=== PATIENT | male | born 1960 | race Caucasian/White ===

== ENCOUNTER 2020-08-11 16:18 | Emergency (ER) | payer BC | END 2020-08-11 17:15 | disposition left against medical advice (07) | LOC: EC 16:18 | DX: R50.9 Fever, unspecified (principal) | CPT/HCPCS: 99499 ==

== ENCOUNTER → 2020-08-12 | Outpatient (CLI) | payer BC | END | disposition home or self-care (01) | LOC: LABWHC1 10:30 | PROVIDERS: ATTEND Internal Medicine | DX: R50.9 Fever, unspecified (principal); J02.9 Acute pharyngitis, unspecified | CPT/HCPCS: U0003; C9803 ==

== ENCOUNTER 2020-08-14 14:26 | Inpatient (IN) | payer BC ==
[2020-08-14] MEDS ORDERED: SUCCINYLCHOLINE CHLORIDE VIAL 200 MG/10 ML VIAL IV ONE (15:00)
[2020-08-14] MEDS ORDERED: ETOMIDATE 2 MG/ML 10 ML VIAL ONE (15:00)
[2020-08-14] MEDS ORDERED: ALBUTEROL HFA INHALER INHALATION STA (15:09)
[2020-08-14] MEDS ORDERED: ACETAMINOPHEN TAB 325 MG TAB PO STA ×2 (15:09→21:10)
[2020-08-14] MEDS ORDERED: SODIUM CHLORIDE 0.9% 1,000 ML IV STA (15:12)
[2020-08-14 15:40] LABS: Basophils # (A) 0.1 k/uL (0-0.2); Basophils % (A) 1 %; Eosinophils % (A) 0 %; HCT 43.4 % (39.0-53.0); HGB 15.3 gm/dL (13.0-17.5); Lymphocytes # (A) 0.5 k/uL (1.0-4.8); Lymphocytes % (A) 7 %; MCH 29.7 pg (25.0-35.0); MCHC 35.3 g/dL (31.0-37.0); MCV 84.2 fL (80.0-100.0); Mean Platelet Volume 8.5; Monocytes # (A) 0.3 k/uL (0-1.0); Monocytes % (A) 4 %; Neutrophils # (A) 5.3 k/uL (1.3-7.7); Neutrophils % (A) 87 %; Platelet Count 100 k/uL (150-450); RBC 5.16 m/uL (4.30-5.90); RDW 13.8 % (11.5-15.5); WBC 6.1 k/uL (3.8-10.6)
--- NOTE | 2020-08-14 15:46 | ED ---
SOB HPI - General Chief Complaint: Shortness of Breath Stated Complaint: Fever,SOB Time Seen by Provider: 08/14/20 14:50 Source: patient Mode of arrival: wheelchair Limitations: no limitations - History of Present Illness Initial Comments: Patient is a 59-year-old male, history of diabetes, hypertension, presenting to the emergency Department with complaints of a fever and shortness of breath for the last 5 days. Patient states his symptoms started on Monday with a sore throat and then later on the day developed a fever. Patient states his fever h as been pretty consistent since then. He has been taking Tylenol which does come down sometimes. Patient states he was tested for Covid 2 days ago and is still awaiting the results. Patient came in today secondary to shortness of breath. He states he continues to have fevers today. He took a Tylenol about 2 hours prior to arrival. He denies history of asthma or COPD. He denies any nausea, vomiting, diarrhea. He denies any chest pains. He has no further complaints at this time. Upon arrival to the ER, he is febrile to 101.7, pulse is 101, 93% on room air. - Related Data Home Medications Medication Instructions Recorded Confirmed Acetaminophen Tab [Tylenol] 1,000 mg PO Q4-6H PRN 08/14/20 08/14/20 Aspirin EC [Ecotrin Low Dose] 81 mg PO HS 08/14/20 08/14/20 Insulin Aspart [NovoLOG] See Protocol SQ TID-W/MEALS 08/14/20 08/14/20 Lisinopril-Hctz 10-12.5 mg 1 tab PO DAILY 08/14/20 08/14/20 [Zestoretic 10-12.5] metFORMIN HCL 1,000 mg PO BID-W/MEALS 08/14/20 08/14/20 Allergies Allergy/AdvReac Type Severity Reaction Status Date / Time No Known Allergies Allergy Verified 08/14/20 18:01 Review of Systems ROS Statement: Those systems with pertinent positive or pertinent negative responses have been documented in the HPI. ROS Other: All systems not noted in ROS Statement are negative. Past Medical History Past Medical History: Diabetes Mellitus, Hypertension History of Any Multi-Drug Resistant Organisms: None Reported Past Surgical History: Appendectomy Past Psychological History: No Psychological Hx Reported Smoking Status: Never smoker Past Alcohol Use History: None Reported Past Drug Use History: None Reported General Exam - General Exam Comments Initial Comments: GENERAL: Patient is well-developed and well-nourished. Patient is nontoxic and in no acute distress. HEAD: Atraumatic, normocephalic. EYES: Pupils equal round and reactive to light, extraocular movements intact, sclera anicteric, conjunctiva are normal. Eyelids were unremarkable. ENT: TMs normal, nares patent, oropharynx clear without exudates. Moist mucous membranes. NECK: Normal range of motion, supple without lymphadenopathy or JVD. LUNGS: Unlabored respirations. Breath sounds clear to auscultation bilaterally and equal. No wheezes rales or rhonchi. HEART: Tachycardia rate and rhythm without murmurs, rubs or gallops. ABDOMEN: Soft, nontender, normoactive bowel sounds. No guarding, no rebound. No masses appreciated. : Deferred MUSCULOSKELETAL: Normal extremities with adequate strength and normal range of motion, no pitting or edema. No clubbing or cyanosis. NEUROLOGICAL: Patient is alert and oriented x 3. Motor and sensory are also intact. Cranial nerves II through XII grossly intact. Symmetrical smile. Normal speech, normal gait. PSYCH: Normal mood, normal affect. SKIN: Warm, Dry, normal turgor, no rashes or lesions noted. Limitations: no limitations Course Vital Signs 08/14/20 08/14/20 08/14/20 14:32 15:30 16:00 Temperature 101.7 F H Pulse Rate 101 H 92 93 Respiratory 18 24 28 H Rate Blood Pressure 122/69 143/73 O2 Sat by Pulse 93 L 96 95 Oximetry 08/14/20 08/14/20 08/14/20 16:30 17:00 17:30 Temperature Pulse Rate 98 98 93 Respiratory 18 Rate Blood Pressure 143/77 133/83 144/74 O2 Sat by Pulse 95 95 96 Oximetry 08/14/20 08/14/20 08/14/20 17:32 18:00 18:30 Temperature 102 F H Pulse Rate 95 96 93 Respiratory 16 18 20 Rate Blood Pressure 144/74 130/78 139/78 O2 Sat by Pulse 96 94 L 95 Oximetry 08/14/20 08/14/20 08/14/20 19:00 19:30 20:00 Temperature Pulse Rate 96 92 97 Respiratory 18 20 Rate Blood Pressure 160/79 162/82 136/60 O2 Sat by Pulse 94 L 93 L 95 Oximetry 08/14/20 08/14/20 08/14/20 20:30 21:00 21:09 Temperature 102.4 F H Pulse Rate 103 H 90 Respiratory 20 18 Rate Blood Pressure 147/68 146/92 O2 Sat by Pulse 95 Oximetry Medical Decision Making - Medical Decision Making Patient is a 59-year-old male presenting with a fever, shortness of breath 5 days. He was tested for Covid 2 days ago, results are still pending. Patient did arrive febrile 101.7, tachycardia at 101, 93% on room air. Labs show a normal white count, d-dimer is normal, sugar was elevated at 317, lactic acid was normal, CRP is elevated at 137. Influenza is not detected. Chest x-ray reveals focal patchy opacities in the peripheral right mid lung and the left mid and lower lung. Patient was given fluids, Tylenol and albuterol inhaler. Patient has been standing at about 94-95% on room air at rest however status patient sits up or stands up and walks around his O2 drops to 91-92%. Given patient's acute findings, bilateral pneumonia, did recommend admission for IV antibiotics and monitoring. Patient is in agreement this plan of care. We will start antibiotics. Patient was accepted by Kaylynn Henderson. Case discussed with Dr. Cazares. - Lab Data Result diagrams: 08/14/20 15:25 08/14/20 15:25 Lab Results 08/14/20 08/14/20 08/14/20 Range/Units 15:25 15:25 15:25 WBC 6.1 (3.8-10.6) k/uL RBC 5.16 (4.30-5.90) m/uL Hgb 15.3 (13.0-17.5) gm/dL Hct 43.4 (39.0-53.0) % MCV 84.2 (80.0-100.0) fL MCH 29.7 (25.0-35.0) pg MCHC 35.3 (31.0-37.0) g/dL RDW 13.8 (11.5-15.5) % Plt Count 100 L (150-450) k/uL MPV 8.5 Neutrophils % 87 % Lymphocytes % 7 % Monocytes % 4 % Eosinophils % 0 % Basophils % 1 % Neutrophils # 5.3 (1.3-7.7) k/uL Lymphocytes # 0.5 L (1.0-4.8) k/uL Monocytes # 0.3 (0-1.0) k/uL Eosinophils # 0.0 (0-0.7) k/uL Basophils # 0.1 (0-0.2) k/uL PT 9.9 (9.0-12.0) sec INR 0.9 (<1.2) APTT 28.1 (22.0-30.0) sec D-Dimer 0.18 (<0.60) mg/L FEU Sodium 135 L (137-145) mmol/L Potassium 4.4 (3.5-5.1) mmol/L Chloride 101 (98-107) mmol/L Carbon Dioxide 21 L (22-30) mmol/L Anion Gap 13 mmol/L BUN 23 H (9-20) mg/dL Creatinine 0.99 (0.66-1.25) mg/dL Est GFR (CKD-EPI)AfAm >90 (>60 ml/min/1.73 sqM) Est GFR (CKD-EPI)NonAf 84 (>60 ml/min/1.73 sqM) Glucose 317 H (74-99) mg/dL Plasma Lactic Acid Samy (0.7-2.0) mmol/L Calcium 8.2 L (8.4-10.2) mg/dL Magnesium 1.9 (1.6-2.3) mg/dL Total Bilirubin 0.8 (0.2-1.3) mg/dL AST 37 (17-59) U/L ALT 28 (4-49) U/L Alkaline Phosphatase 74 (38-126) U/L Lactate Dehydrogenase 591 (313-618) U/L C-Reactive Protein 137.2 H (<10.0) mg/L Total Protein 6.7 (6.3-8.2) g/dL Albumin 4.0 (3.5-5.0) g/dL Influenza Type A RNA (Not Detectd) Influenza Type B (PCR) (Not Detectd) 08/14/20 08/14/20 Range/Units 15:25 15:25 WBC (3.8-10.6) k/uL RBC (4.30-5.90) m/uL Hgb (13.0-17.5) gm/dL Hct (39.0-53.0) % MCV (80.0-100.0) fL MCH (25.0-35.0) pg MCHC (31.0-37.0) g/dL RDW (11.5-15.5) % Plt Count (150-450) k/uL MPV Neutrophils % % Lymphocytes % % Monocytes % % Eosinophils % % Basophils % % Neutrophils # (1.3-7.7) k/uL Lymphocytes # (1.0-4.8) k/uL Monocytes # (0-1.0) k/uL Eosinophils # (0-0.7) k/uL Basophils # (0-0.2) k/uL PT (9.0-12.0) sec INR (<1.2) APTT (22.0-30.0) sec D-Dimer (<0.60) mg/L FEU Sodium (137-145) mmol/L Potassium (3.5-5.1) mmol/L Chloride (98-107) mmol/L Carbon Dioxide (22-30) mmol/L Anion Gap mmol/L BUN (9-20) mg/dL Creatinine (0.66-1.25) mg/dL Est GFR (CKD-EPI)AfAm (>60 ml/min/1.73 sqM) Est GFR (CKD-EPI)NonAf (>60 ml/min/1.73 sqM) Glucose (74-99) mg/dL Plasma Lactic Acid Samy 1.8 (0.7-2.0) mmol/L Calcium (8.4-10.2) mg/dL Magnesium (1.6-2.3) mg/dL Total Bilirubin (0.2-1.3) mg/dL AST (17-59) U/L ALT (4-49) U/L Alkaline Phosphatase (38-126) U/L Lactate Dehydrogenase (313-618) U/L C-Reactive Protein (<10.0) mg/L Total Protein (6.3-8.2) g/dL Albumin (3.5-5.0) g/dL Influenza Type A RNA Not Detected (Not Detectd) Influenza Type B (PCR) Not Detected (Not Detectd) - EKG Data EKG Comments: Normal sinus rhythm, inferior infarct age undetermined, no signs of acute ischemia. Ventricular rate 96, MO 144, QT 360. Disposition Clinical Impression: Suspected 2019 novel coronavirus infection, Bilateral pneumonia, Fever, Hypoxia Disposition: ADMITTED IP TO THIS HOSP Condition: Stable Is patient prescribed a controlled substance at d/c from ED?: No Decision Date: 08/14/20 Decision Time: 18:23
--- NOTE | 2020-08-14 15:48 | XR ---
EXAMINATION TYPE: XR chest 1V portable DATE OF EXAM: 08/14/2020 Comparison: None Clinical History: 59-year-old male FEVER, SOB Findings: Heart is borderline enlarged. Aorta within normal limits. Focal patchy opacities peripheral right mid lung and left mid and lower lung. Some of these areas may represent atelectasis. No pleural effusion. Impression: Focal infiltrate right midlung and possibly some mild infiltrate at the left lower lung. Correlate fo r pneumonia. Some additional strandy areas of atelectasis.
[2020-08-14 15:53] LABS: ALT 28 U/L (4-49); AST 37 U/L (17-59); African American GFR (CKD) >90 (>60 ml/min/1.73 sqM); Alkaline Phosphatase 74 U/L (38-126); Anion Gap 13 mmol/L; Blood Urea Nitrogen 23 mg/dL (9-20); Calcium 8.2 mg/dL (8.4-10.2); Carbon Dioxide 21 mmol/L (22-30); Chloride 101 mmol/L (98-107); Glucose 317 mg/dL (74-99); LDH 591 U/L (313-618); Magnesium 1.9 mg/dL (1.6-2.3); Non-African American GFR(CKD) 84 (>60 ml/min/1.73 sqM); Potassium 4.4 mmol/L (3.5-5.1); Sodium 135 mmol/L (137-145); Total Bilirubin 0.8 mg/dL (0.2-1.3); Total Protein 6.7 g/dL (6.3-8.2)
[2020-08-14 16:16] LABS: D-Dimer 0.18 mg/L FEU (<0.60); INR 0.9 (<1.2); Partial Thromboplastin Time 28.1 sec (22.0-30.0); Prothrombin Time 9.9 sec (9.0-12.0)
[2020-08-14 16:44] LABS: C Reactive Protein 137.2 mg/L (<10.0)
[2020-08-14] MEDS ORDERED: PNEUMONIA PROTOCOL UTILIZED 1 EACH MISC PO PRN (18:23)
[2020-08-14] MEDS ORDERED: SODIUM CHLORIDE 0.9% 1,000 ML IV SCH (18:30)
[2020-08-14] MEDS ORDERED: DEXAMETHASONE SOD PHOSPHATE 10 MG/ML 1 ML VIAL IV STA (18:31)
[2020-08-14] MEDS ORDERED: IBUPROFEN 600 MG TAB PO STA (21:10)
[2020-08-14 21:54] LABS: Glucose,Whole Blood 296 mg/dL (75-99)
[2020-08-15 02:53] LABS: Ferritin 823.3 ng/mL (22.0-322.0)
[2020-08-15 07:09] LABS: Glucose,Whole Blood 336 mg/dL (75-99)
[2020-08-15] MEDS ORDERED: ACETAMINOPHEN TAB 500 MG TAB PO PRN (08:28)
--- NOTE | 2020-08-15 08:59 | XR ---
EXAMINATION TYPE: XR chest 1V portable DATE OF EXAM: 08/15/2020 COMPARISON: Prior chest x-ray 08/14/2020 HISTORY: Pneumonia TECHNIQUE: Single frontal view of the chest is obtained. FINDINGS: Patchy bilateral increased density within the lungs. There is no evident pneumothorax or p leural effusion. Cardiac mediastinal silhouette is stable. IMPRESSION: Findings similar to prior exam. Correlate for pneumonia, atelectasis
[2020-08-15] MEDS: INSULIN ASPART (NovoLOG) 100 UNIT/ML VIAL SQ SCH ×4 (09:46→21:55)
[2020-08-15] MEDS: AZITHROMYCIN 500 MG TAB PO SCH (09:47)
[2020-08-15 11:42] LABS: Glucose,Whole Blood 362 mg/dL (75-99)
--- NOTE | 2020-08-15 15:13 | P.HPIM ---
History of Present Illness 59-year-old the female came in with compensative fever shortness of breath going on for last 5 days. Patient is found to have a Covid 19. Chest x-ray swelling some atelectasis. Patient has a high-grade fever saturating at 91-92% on room air patient gets winded and short of breath with minimal exertion and ambulation.urine is foamy history denied any COPD or asthma history. Review of Systems REVIEW OF SYSTEMS: CONSTITUTIONAL:mentioned in HPI HEENT: No recent visual problems or hearing problems. Denied any sore throat. CARDIOVASCULAR: No chest pain, orthopnea, PND, no palpitations, no syncope. PULMONARY: as mentioned in HPI. GASTROINTESTINAL: No diarrhea, no nausea, no vomiting, no abdominal pain. NEUROLOGICAL: No headaches, no weakness, no numbness. HEMATOLOGICAL: Denies any bleeding or petechiae. GENITOURINARY: Denies any burning micturition, frequency, or urgency. MUSCULOSKELETAL/RHEUMATOLOGICAL: Denies any joint pain, swelling, or any muscle pain. ENDOCRINE: Denies any polyuria or polydipsia. The rest of the 14-point review of systems is negative. Past Medical History Past Medical History: Diabetes Mellitus, Hypertension History of Any Multi-Drug Resistant Organisms: None Reported Past Surgical History: Appendectomy Past Psychological History: No Psychological Hx Reported Smoking Status: Never smoker Past Alcohol Use History: None Reported Past Drug Use History: None Reported Medications and Allergies Home Medications Medication Instructions Recorded Confirmed Type Acetaminophen Tab [Tylenol] 1,000 mg PO Q4-6H PRN 08/14/20 08/14/20 History Aspirin EC [Ecotrin Low Dose] 81 mg PO HS 08/14/20 08/14/20 History Insulin Aspart [NovoLOG] See Protocol SQ TID-W/MEALS 08/14/20 08/14/20 History Lisinopril-Hctz 10-12.5 mg 1 tab PO DAILY 08/14/20 08/14/20 History [Zestoretic 10-12.5] metFORMIN HCL 1,000 mg PO BID-W/MEALS 08/14/20 08/14/20 History Allergies Allergy/AdvReac Type Severity Reaction Status Date / Time No Known Allergies Allergy Verified 08/14/20 18:01 Physical Exam Vitals: Vital Signs Temp Pulse Pulse Resp BP BP Pulse Ox 08/15/20 07:00 98.2 F 89 20 147/75 91 L 08/15/20 01:35 98.0 F 83 20 104/61 93 L 08/15/20 00:00 103 H 24 08/14/20 22:30 98.4 F 08/14/20 21:36 102.5 F H 103 H 24 156/77 92 L 08/14/20 21:09 102.4 F H 08/14/20 21:00 90 18 146/92 95 08/14/20 20:30 103 H 20 147/68 08/14/20 20:00 97 20 136/60 95 08/14/20 19:30 92 162/82 93 L 08/14/20 19:00 96 18 160/79 94 L 08/14/20 18:30 93 20 139/78 95 08/14/20 18:00 96 18 130/78 94 L 08/14/20 17:32 102 F H 95 16 144/74 96 08/14/20 17:30 93 144/74 96 08/14/20 17:00 98 133/83 95 08/14/20 16:30 98 18 143/77 95 08/14/20 16:00 93 28 H 143/73 95 08/14/20 15:30 92 24 96 Intake and Output 08/15/20 08/15/20 08/15/20 06:59 14:59 22:59 Intake Total 1500 400 Output Total 200 Balance 1300 400 Intake: Intake, IV Titration 1200 Amount Sodium Chloride 0.9% 1, 1200 000 ml @ 100 mls/hr IV . Q10H [facility] Rx#:[id number] Oral 300 400 Output: Urine 200 Other: Voiding Method Toilet Toilet # Voids 3 PHYSICAL EXAMINATION: GENERAL: The patient is alert and oriented x3, not in any acute distress. Well developed, well nourished. HEENT: Pupils are round and equally reacting to light. EOMI. No scleral icterus. No conjunctival pallor. Normocephalic, atraumatic. No pharyngeal erythema. No thyromegaly. CARDIOVASCULAR: S1 and S2 present. No murmurs, rubs, or gallops. PULMONARY: there may be some scattered rhonchi good air entry into bilateral lung ulloa. ABDOMEN: Soft, nontender, nondistended, normoactive bowel sounds. No palpable organomegaly. MUSCULOSKELETAL: No joint swelling or deformity. EXTREMITIES: No cyanosis, clubbing, or pedal edema. NEUROLOGICAL: Gross neurological examination did not reveal any focal deficits. SKIN: No rashes. Results CBC & Chem 7: 08/14/20 15:25 08/14/20 15:25 Labs: Abnormal Lab Results - Last 24 Hours (Table) 08/14/20 08/14/20 08/14/20 Range/Units 15:25 15:25 15:25 Plt Count 100 L (150-450) k/uL Lymphocytes # 0.5 L (1.0-4.8) k/uL Sodium 135 L (137-145) mmol/L Carbon Dioxide 21 L (22-30) mmol/L BUN 23 H (9-20) mg/dL Glucose 317 H (74-99) mg/dL POC Glucose (mg/dL) (75-99) mg/dL Calcium 8.2 L (8.4-10.2) mg/dL Ferritin 823.3 H (22.0-322.0) ng/mL C-Reactive Protein 137.2 H (<10.0) mg/L Procalcitonin 0.23 H (0.02-0.09) ng/mL 08/14/20 08/15/20 08/15/20 Range/Units 21:53 07:06 11:40 Plt Count (150-450) k/uL Lymphocytes # (1.0-4.8) k/uL Sodium (137-145) mmol/L Carbon Dioxide (22-30) mmol/L BUN (9-20) mg/dL Glucose (74-99) mg/dL POC Glucose (mg/dL) 296 H 336 H 362 H (75-99) mg/dL Calcium (8.4-10.2) mg/dL Ferritin (22.0-322.0) ng/mL C-Reactive Protein (<10.0) mg/L Procalcitonin (0.02-0.09) ng/mL Thrombosis Risk Factor Assmnt - Choose All That Apply Each Factor Represents 1 point: Age 41-60 years Thrombosis Risk Factor Assessment Total Risk Factor Score: 1 Thrombosis Risk Factor Assessment Level: Low Risk Assessment and Plan Plan: -quit 19 infection/pneumonia: Considering borderline on since saturations and symmetric significant shortness of breath upon minimal ablation patient will be started on Decadron was monitored overnight if he continues to improve patient will be discharged tomorrow. Infectious disease will be consulted -Type 2 diabetes mellitus uncontrolled elevated blood sugars these are expected to go up even higher because of her Decadron patient will be continued on sliding scale along with metformin. 3 on his blood sugars will decide on discharged home regimen. -mild hypovolemic hyponatremia -Hypertension to avoid any hypotension related to sepsis will hold off on antidepressant medications -DVT prophylaxis with Lovenox
[2020-08-15 17:12] LABS: Glucose,Whole Blood 245 mg/dL (75-99)
[2020-08-15] MEDS: metFORMIN 500 MG TAB PO SCH (17:17)
[2020-08-15] MEDS: dexAMETHasone 2 MG TAB PO SCH (17:17)
[2020-08-15 21:00] LABS: Glucose,Whole Blood 283 mg/dL (75-99)
[2020-08-15] MEDS: FAMOTIDINE 20 MG TAB PO SCH (21:55)
[2020-08-15] MEDS: ASPIRIN 81 MG PO SCH (21:55)
[2020-08-16 06:53] LABS: Glucose,Whole Blood 306 mg/dL (75-99)
[2020-08-16] MEDS: AZITHROMYCIN 500 MG TAB PO SCH (07:04)
[2020-08-16] MEDS: FAMOTIDINE 20 MG TAB PO SCH ×2 (07:04→20:24)
[2020-08-16] MEDS: ENOXAPARIN 40 MG/0.4 ML SYRINGE SQ SCH (07:04)
[2020-08-16] MEDS: INSULIN ASPART (NovoLOG) 100 UNIT/ML VIAL SQ SCH ×4 (07:04→21:20)
[2020-08-16] MEDS: metFORMIN 500 MG TAB PO SCH ×2 (07:04→16:54)
[2020-08-16] MEDS: dexAMETHasone 2 MG TAB PO SCH (07:05)
[2020-08-16] MEDS ORDERED: dexAMETHasone 2 MG TAB PO SCH (09:00)
[2020-08-16 11:21] LABS: Glucose,Whole Blood 309 mg/dL (75-99)
--- NOTE | 2020-08-16 14:07 | P.PN ---
Subjective 53-year-old male is admitted for Covid19 pneumonitis, sepsis. Patient went into hypoxemia last night ended up on 3 L of oxygen.overall feeling little bit better Constitutional: Denied any fatigue denied any fever. Cardio vascular: denied any chest pain, palpitations Gastrointestinal denied any nausea vomiting Pulmonary: Denied any shortness of breath cough Neurologic denied any new focal deficits All inpatient medications were reviewed and appropriate changes in these medications as dictated in the interval history and assessment and plan. Objective - Vital Signs Vital signs: Vital Signs Temp 98.2 F 08/16/20 07:00 Pulse 81 08/16/20 07:00 Resp 20 08/16/20 07:00 BP 132/78 08/16/20 07:00 Pulse Ox 92 L 08/16/20 07:00 Intake & Output 08/15/20 08/16/20 08/16/20 18:59 06:59 18:59 Intake Total 400 800 Balance 400 800 Intake: Oral 400 800 Other: Voiding Method Toilet Toilet Toilet # Voids 3 1 - Exam PHYSICAL EXAMINATION: GENERAL: The patient is alert and oriented x3, not in any acute distress. Well developed, well nourished. HEENT: Pupils are round and equally reacting to light. EOMI. No scleral icterus. No conjunctival pallor. Normocephalic, atraumatic. No pharyngeal erythema. No thyromegaly. CARDIOVASCULAR: S1 and S2 present. No murmurs, rubs, or gallops. PULMONARY: there may be some scattered rhonchi good air entry into bilateral lung ulloa. ABDOMEN: Soft, nontender, nondistended, normoactive bowel sounds. No palpable organomegaly. MUSCULOSKELETAL: No joint swelling or deformity. EXTREMITIES: No cyanosis, clubbing, or pedal edema. NEUROLOGICAL: Gross neurological examination did not reveal any focal deficits. SKIN: No rashes. Note: Because of COVID 19 isolation, some of the history and physical exam findings are indirect and obtained from nursing staff, and other physician examinations to avoid unnecessary contact with the patient. - Labs CBC & Chem 7: 08/14/20 15:25 08/14/20 15:25 Labs: Abnormal Lab Results - Last 24 Hours (Table) 08/15/20 08/15/20 08/16/20 Range/Units 17:10 20:58 06:48 POC Glucose (mg/dL) 245 H 283 H 306 H (75-99) mg/dL 08/16/20 Range/Units 11:20 POC Glucose (mg/dL) 309 H (75-99) mg/dL Microbiology - Last 24 Hours (Table) 08/14/20 20:28 Blood Culture - Preliminary Blood No Growth after 24 hours Assessment and Plan Plan: -Covid 19 infection/pneumonia:continue with Decadron continue with respiratory support with oxygen. infectious disease evaluated the patient. -acute hypoxic respiratory failure secondary to Covid 19 -Type 2 diabetes mellitus uncontrolled elevated blood sugars patient will be continued on metformin will add a long-acting insulin along with sliding scale patient blood sugars are not controlled because of Decadron -mild hypovolemic hyponatremia -Hypertension to avoid any hypotension related to sepsis will hold off on antihypertensive medications -DVT prophylaxis with Lovenox
[2020-08-16 16:36] LABS: Glucose,Whole Blood 312 mg/dL (75-99)
[2020-08-16] MEDS: ASPIRIN 81 MG PO SCH (20:24)
[2020-08-16 20:51] LABS: Glucose,Whole Blood 300 mg/dL (75-99)
[2020-08-16] MEDS: INSULIN DETEMIR (LEVEMIR) 100 UNIT/ML SYR SQ SCH (21:20)
--- NOTE | 2020-08-16 22:49 | P.CONS ---
History of Present Illness - Reason for Consult Consult date: 08/16/20 Pneumonia Requesting physician: Waldemar Bryant - Chief Complaint Shortness of breath and cough x 5 days - History of Present Illness Patient is a 59-year-old male with past medical history. For diabetes hypertension patient presented to hospital with a chief complaints of increasing shortness of breath and fever that has been going on for about 5 days before presentation to the hospital patient's symptoms started initially with a sore throat subsequently did have a fever after or sore having increasing shortness of breath and did have a cough which is moderate in intensity but not bringing up any sputum. Denies any pleuritic chest pain patient did have a covid test done 2 days ago which was still pending, on arrival to the patient did have fever of 102F, patient did have a normal white count with lymphopenia, patient did have a normal d-dimer liver enzymes are normal. Did have elevated CRP as well as procalcitonin, patient Covid testing concerned pending, patient did have chest x-ray with focal infiltrate right mid lung correlate for pneumonia, patient has been treated with the Zithromax Lovenox dexamethasone infection disease was consulted today for the management of antibiotic therapy Review of Systems Positive point has been mentioned in the HPI rest of the systems are negative Past Medical History Past Medical History: Diabetes Mellitus, Hypertension History of Any Multi-Drug Resistant Organisms: None Reported Past Surgical History: Appendectomy Past Psychological History: No Psychological Hx Reported Smoking Status: Never smoker Past Alcohol Use History: None Reported Past Drug Use History: None Reported Medications and Allergies Home Medications Medication Instructions Recorded Confirmed Type Acetaminophen Tab [Tylenol] 1,000 mg PO Q4-6H PRN 08/14/20 08/14/20 History Aspirin EC [Ecotrin Low Dose] 81 mg PO HS 08/14/20 08/14/20 History Insulin Aspart [NovoLOG] See Protocol SQ TID-W/MEALS 08/14/20 08/14/20 History Lisinopril-Hctz 10-12.5 mg 1 tab PO DAILY 08/14/20 08/14/20 History [Zestoretic 10-12.5] metFORMIN HCL 1,000 mg PO BID-W/MEALS 08/14/20 08/14/20 History Allergies Allergy/AdvReac Type Severity Reaction Status Date / Time No Known Allergies Allergy Verified 08/14/20 18:01 Physical Exam Vitals: Vital Signs Temp Pulse Pulse Resp BP Pulse Ox 08/16/20 07:00 98.2 F 81 20 132/78 92 L 08/16/20 01:45 97.7 F 79 18 131/76 94 L 08/16/20 00:00 20 08/15/20 19:49 100.0 F H 94 20 157/70 94 L 08/15/20 15:00 99.2 F 103 H 20 143/71 90 L Intake and Output 08/15/20 08/16/20 08/16/20 22:59 06:59 14:59 Other: Voiding Method Toilet Toilet # Voids 1 GENERAL DESCRIPTION: Middle-aged male lying in bed, no distress. No tachypnea or accessory muscle of respiration use. HEENT: Shows Pallor , no scleral icterus. Oral mucous membrane is dry. No pharyngeal erythema or thrush NECK: Trachea central, no thyromegaly. LUNGS: Unlabored breathing. Coarse breath sounds bilaterally. No wheeze or crackle. HEART: S1, S2, regular rate and rhythm. No loud murmur ABDOMEN: Soft, no tenderness , guarding or rigidity, no organomegaly EXTREMITIES: No edema of feet. SKIN: No rash, no masses palpable. NEUROLOGICAL: The patient is awake, alert, oriented x3, mood and affect normal. Results CBC & Chem 7: 08/14/20 15:25 08/14/20 15:25 Labs: Abnormal Lab Results - Last 24 Hours (Table) 08/15/20 08/15/20 08/16/20 Range/Units 17:10 20:58 06:48 POC Glucose (mg/dL) 245 H 283 H 306 H (75-99) mg/dL 08/16/20 Range/Units 11:20 POC Glucose (mg/dL) 309 H (75-99) mg/dL Microbiology - Last 24 Hours (Table) 08/14/20 20:28 Blood Culture - Preliminary Blood No Growth after 24 hours Assessment and Plan Assessment: 1- patient presented to hospital with fever and shortness of breath and cough wi th evidence of pneumonia in this patient with clinical suspicious for Covid 19 infection, testing is still pending the patient seemed to have some clinical response with resolution of his fever however is still hypoxic requiring supplemental oxygen (1) Bilateral pneumonia Current Visit: Yes Status: Acute Code(s): J18.9 - PNEUMONIA, UNSPECIFIED ORGANISM SNOMED Code(s): 638163172 (2) Suspected 2019 novel coronavirus infection Current Visit: Yes Status: Acute Code(s): Z20.828 - CONTACT W AND EXPOSURE TO OTH VIRAL COMMUNICABLE DISEASES SNOMED Code(s): 154686080 Plan: 1- patient to continue on Zithromax dexamethasone Lovenox 2-add zinc sulfate and vitamin C 3-if the patient remains to be hypoxic , we may need to add Remdisivir 4-droplet isolation and respiratory support We will follow on clinical condition and cultures to further adjust medication if needed Thank you for this consultation will follow this patient with you Time with Patient: Greater than 30
[2020-08-17 06:40] LABS: Basophils % (A) 0 %; Eosinophils % (A) 0 %; HCT 45.4 % (39.0-53.0); HGB 15.3 gm/dL (13.0-17.5); Lymphocytes # (A) 0.6 k/uL (1.0-4.8); Lymphocytes % (A) 5 %; MCH 28.9 pg (25.0-35.0); MCHC 33.6 g/dL (31.0-37.0); MCV 85.8 fL (80.0-100.0); Mean Platelet Volume 7.9; Monocytes # (A) 0.6 k/uL (0-1.0); Monocytes % (A) 5 %; Neutrophils # (A) 9.2 k/uL (1.3-7.7); Neutrophils % (A) 88 %; Platelet Count 149 k/uL (150-450); RBC 5.29 m/uL (4.30-5.90); RDW 13.7 % (11.5-15.5); WBC 10.4 k/uL (3.8-10.6)
[2020-08-17 07:00] LABS: Glucose,Whole Blood 258 mg/dL (75-99)
--- NOTE | 2020-08-17 07:17 | XR ---
EXAMINATION TYPE: XR chest 1V portable DATE OF EXAM: 08/17/2020 COMPARISON: 08/15/2020 HISTORY: Cough TECHNIQUE: Single frontal view of the chest is obtained. FINDINGS: Bilateral areas of subsegmental consolidation are stable. Pleural thickening or tiny effus ions noted with no pneumothorax. Heart size normal. Hypertrophic change of the spine. IMPRESSION: Bilateral patchy areas of infiltrate stable.
[2020-08-17] MEDS: FAMOTIDINE 20 MG TAB PO SCH ×2 (07:54→21:09)
[2020-08-17] MEDS: ENOXAPARIN 40 MG/0.4 ML SYRINGE SQ SCH (07:54)
[2020-08-17] MEDS: metFORMIN 500 MG TAB PO SCH ×2 (07:54→16:39)
[2020-08-17] MEDS: dexAMETHasone 2 MG TAB PO SCH (07:54)
[2020-08-17] MEDS: ASCORBIC ACID 500 MG TAB PO SCH (07:54)
[2020-08-17] MEDS: AZITHROMYCIN 500 MG TAB PO SCH (07:54)
[2020-08-17] MEDS: ZINC SULFATE 220 MG CAP PO SCH (07:54)
[2020-08-17] MEDS: INSULIN ASPART (NovoLOG) 100 UNIT/ML VIAL SQ SCH ×4 (07:55→21:09)
[2020-08-17 09:30] LABS: African American GFR (CKD) 85.3 (60.0-200.0); Albumin 4.2 g/dL (3.80-4.90); Albumin/Globulin Ratio 1.91 (1.60-3.17); Anion Gap 10.3 mmol/L (4.00-12.00); BUN/Creat Ratio 26.36 Ratio (12.00-20.00); C Reactive Protein 9.6 mg/dL (0.0-0.8); Calcium 8.6 mg/dL (8.7-10.3); Carbon Dioxide 24.7 mmol/L (21.6-31.8); Globulin 2.2 g/dL (1.6-3.3); Non-African American GFR(CKD) 73.6 (60.0-200.0); Potassium 4.4 mmol/L (3.5-5.5); Total Bilirubin 0.8 mg/dL (0.3-1.2); Total Protein 6.4 g/dL (6.2-8.2)
[2020-08-17 11:29] LABS: Glucose,Whole Blood 290 mg/dL (75-99)
[2020-08-17] MEDS ORDERED: REMDESIVIR 200 MG in SODIUM CHLORIDE 0.9% 250 ML IVPB ONE (13:00)
--- NOTE | 2020-08-17 13:30 | P.PN ---
Subjective 53-year-old male is admitted for Covid19 pneumonitis, sepsis. Patient went into hypoxemia last night ended up on 3 L of oxygen.overall feeling little bit better. 08/17/2020 Patient's is pretty status is worse and patient is not doing well in spite of high flow nasal cannula oxygen along with 100% many mask. Patient is being started on Remdesivir. Patient is still complaining of shortness of breath Constitutional: Denied any fatigue denied any fever. Cardio vascular: denied any chest pain, palpitations Gastrointestinal denied any nausea vomiting Pulmonary: As mentioned above Neurologic denied any new focal deficits All inpatient medications were reviewed and appropriate changes in these medications as dictated in the interval history and assessment and plan. Objective - Vital Signs Vital signs: Vital Signs Temp 97.8 F 08/17/20 07:00 Pulse 95 08/17/20 07:00 Resp 23 08/17/20 07:00 BP 146/79 08/17/20 07:00 Pulse Ox 90 L 08/17/20 07:00 Intake & Output 08/16/20 08/17/20 08/17/20 18:59 06:59 18:59 Intake Total 800 Output Total 300 Balance 800 -300 Intake: Oral 800 Output: Urine 300 Other: Voiding Method Toilet Toilet Toilet # Voids 1 - Exam PHYSICAL EXAMINATION: GENERAL: The patient is alert and oriented x3, patient is in respiratory distress. Well developed, well nourished. HEENT: Pupils are round and equally reacting to light. EOMI. No scleral icterus. No conjunctival pallor. Normocephalic, atraumatic. No pharyngeal erythema. No thyromegaly. CARDIOVASCULAR: S1 and S2 present. No murmurs, rubs, or gallops. PULMONARY: Bilateral scattered rhonchi ABDOMEN: Soft, nontender, nondistended, normoactive bowel sounds. No palpable organomegaly. MUSCULOSKELETAL: No joint swelling or deformity. EXTREMITIES: No cyanosis, clubbing, or pedal edema. NEUROLOGICAL: Gross neurological examination did not reveal any focal deficits. SKIN: No rashes. Note: Because of COVID 19 isolation, some of the history and physical exam find ings are indirect and obtained from nursing staff, and other physician examinations to avoid unnecessary contact with the patient. - Labs CBC & Chem 7: 08/17/20 06:19 08/17/20 06:19 Labs: Abnormal Lab Results - Last 24 Hours (Table) 08/16/20 08/16/20 08/17/20 Range/Units 16:33 20:49 06:19 Plt Count (150-450) k/uL Neutrophils # (1.3-7.7) k/uL Lymphocytes # (1.0-4.8) k/uL BUN (9.0-27.0) mg/dL BUN/Creatinine Ratio (12.00-20.00) Ratio Glucose (70-110) mg/dL POC Glucose (mg/dL) 312 H 300 H (75-99) mg/dL Calcium (8.7-10.3) mg/dL C-Reactive Protein (0.0-0.8) mg/dL Procalcitonin 0.16 H (0.02-0.09) ng/mL 08/17/20 08/17/20 08/17/20 Range/Units 06:19 06:19 06:53 Plt Count 149 L (150-450) k/uL Neutrophils # 9.2 H (1.3-7.7) k/uL Lymphocytes # 0.6 L (1.0-4.8) k/uL BUN 29.0 H (9.0-27.0) mg/dL BUN/Creatinine Ratio 26.36 H (12.00-20.00) Ratio Glucose 289 H (70-110) mg/dL POC Glucose (mg/dL) 258 H (75-99) mg/dL Calcium 8.6 L (8.7-10.3) mg/dL C-Reactive Protein 9.6 H (0.0-0.8) mg/dL Procalcitonin (0.02-0.09) ng/mL 08/17/20 Range/Units 11:28 Plt Count (150-450) k/uL Neutrophils # (1.3-7.7) k/uL Lymphocytes # (1.0-4.8) k/uL BUN (9.0-27.0) mg/dL BUN/Creatinine Ratio (12.00-20.00) Ratio Glucose (70-110) mg/dL POC Glucose (mg/dL) 290 H (75-99) mg/dL Calcium (8.7-10.3) mg/dL C-Reactive Protein (0.0-0.8) mg/dL Procalcitonin (0.02-0.09) ng/mL Microbiology - Last 24 Hours (Table) 08/14/20 20:28 Blood Culture - Preliminary Blood No Growth after 48 hours Assessment and Plan Plan: -Covid 19 infection/pneumonia:continue with Decadron continue with respiratory support , since is pretty status is worse and is being started on Remdesivir. infectious disease evaluated the patient. -acute hypoxic respiratory failure secondary to Covid 19 -Type 2 diabetes mellitus uncontrolled elevated blood sugars patient will be continued on metformin will add a long-acting insulin along with sliding scale patient blood sugars are not controlled because of Decadron -mild hypovolemic hyponatremia -Hypertension to avoid any hypotension related to sepsis will hold off on antihypertensive medications -DVT prophylaxis with Lovenox
[2020-08-17 16:32] LABS: Glucose,Whole Blood 335 mg/dL (75-99)
[2020-08-17 20:50] LABS: Glucose,Whole Blood 315 mg/dL (75-99)
[2020-08-17] MEDS: INSULIN DETEMIR (LEVEMIR) 100 UNIT/ML SYR SQ SCH (21:09)
[2020-08-17] MEDS: ASPIRIN 81 MG PO SCH (21:09)
--- NOTE | 2020-08-17 21:56 | PN ---
PROGRESS NOTE DATE OF SERVICE: 08/17/2020 REASON FOR FOLLOWUP: Acute COVID-19 pneumonia. INTERVAL HISTORY: Patient was seen on rounds this morning. The patient has been afebrile. The patient still requiring high-flow oxygen though when asked specifically, he mentioned he was feeling slightly better. The patient denies any chest pain. He did have some cough, not bringing up any sputum. No abdominal pain or diarrhea. PHYSICAL EXAMINATION: Blood pressure 153/82 with a pulse of 80, temperature 98.4. He is 90% on 15 L high- flow oxygen. General description is a middle-aged male lying in bed in no distress. Respiratory system: Unlabored breathing, decreased breath sounds at the base. No wheeze. HEART: S1, S2. Regular rate and rhythm. Abdomen soft, no tenderness. LABS: Hemoglobin is 15.1, white count 10.4, creatinine is 1.1. CRP is down to 9.6. Procalcitonin elevated. Patient did have a chest x-ray which shows bilateral basilar infiltrate stable, no worsening. IMPRESSION/PLAN: Patient with acute COVID-19 pneumonia in this patient who did have a slight worsening with initial treatment. Remdesivir was added this morning after discussion with the pharmacy to continue with Dexamethasone, Lovenox, zinc, along with respiratory support. He was advised incentive spirometry and we will re-evaluate the patient tomorrow. MMODL / IJN: [id number] /
[2020-08-18 06:54] LABS: Glucose,Whole Blood 242 mg/dL (75-99)
[2020-08-18] MEDS: ASCORBIC ACID 500 MG TAB PO SCH (08:47)
[2020-08-18] MEDS: INSULIN ASPART (NovoLOG) 100 UNIT/ML VIAL SQ SCH ×4 (08:47→20:47)
[2020-08-18] MEDS: FAMOTIDINE 20 MG TAB PO SCH ×2 (08:47→20:47)
[2020-08-18] MEDS: AZITHROMYCIN 500 MG TAB PO SCH (08:48)
[2020-08-18] MEDS: ENOXAPARIN 40 MG/0.4 ML SYRINGE SQ SCH (08:48)
[2020-08-18] MEDS: metFORMIN 500 MG TAB PO SCH ×2 (08:48→17:09)
[2020-08-18] MEDS: ZINC SULFATE 220 MG CAP PO SCH (08:48)
[2020-08-18] MEDS: dexAMETHasone 2 MG TAB PO SCH (08:48)
[2020-08-18 11:57] LABS: Glucose,Whole Blood 315 mg/dL (75-99)
[2020-08-18] MEDS: REMDESIVIR 100 MG in SODIUM CHLORIDE 0.9% 250 ML IVPB SCH (12:38)
--- NOTE | 2020-08-18 14:44 | P.PN ---
Subjective Progress Note Date: 08/18/20 53-year-old male is admitted for Covid19 pneumonitis, sepsis. Patient went into hypoxemia last night ended up on 3 L of oxygen.overall feeling little bit better. 08/17/2020 Patient's is pretty status is worse and patient is not doing well in spite of high flow nasal cannula oxygen along with 100% many mask. Patient is being started on Remdesivir. Patient is still complaining of shortness of breath Constitutional: Denied any fatigue denied any fever. Cardio vascular: denied any chest pain, palpitations Gastrointestinal denied any nausea vomiting Pulmonary: As mentioned above Neurologic denied any new focal deficits All inpatient medications were reviewed and appropriate changes in these medic ations as dictated in the interval history and assessment and plan. 08/18/2020 Patient is seen and evaluated in follow-up and continues to be maintained on high flow oxygen via nasal cannula. Infectious disease is following. Patient continues to have shortness of breath especially with exertion. Discussed with the patient about increasing activity and getting up to the commode and chair. Patient states he feels slightly better today although continues to be extremely dyspneic. Review of systems: Constitutional: No reports of fatigue, fever, or chills Cardiovascular: No reports of chest pain or palpitations Respiratory: Reports shortness of breath with occasional cough GI: No reports of nausea, vomiting, or diarrhea : No reports of dysuria or retention Neurovascular: No reports of weakness or numbness All medications have been reviewed Objective - Vital Signs Vital signs: Vital Signs Temp 98.4 F 08/18/20 07:00 Pulse 83 08/18/20 08:00 Resp 19 08/18/20 08:56 BP 153/56 08/18/20 07:00 Pulse Ox 91 L 08/18/20 08:56 Intake & Output 08/17/20 08/18/20 08/18/20 18:59 06:59 18:59 Output Total 300 400 Balance -300 -400 Output: Urine 300 400 Other: Voiding Method Toilet Bedside Commode Bedside Commode Urinal Urinal # Voids 3 1 - Exam GENERAL: The patient is alert and oriented x3, patient continues to be in mild respiratory distress. Well developed, well nourished. HEENT: Pupils are round and equally reacting to light. EOMI. No scleral icterus. No conjunctival pallor. Normocephalic, atraumatic. No pharyngeal erythema. No thyromegaly. CARDIOVASCULAR: S1 and S2 present. No murmurs, rubs, or gallops. PULMONARY: Bilateral scattered rhonchi, no wheezing noted with bilateral diminished air entry, tachypneic ABDOMEN: Soft, nontender, nondistended, normoactive bowel sounds. No palpable organomegaly. MUSCULOSKELETAL: No joint swelling or deformity. EXTREMITIES: No cyanosis, clubbing, or pedal edema. NEUROLOGICAL: Gross neurological examination did not reveal any focal deficits. SKIN: No rashes. Note: Because of COVID 19 isolation, some of the history and physical exam findings are indirect and obtained from nursing staff, and other physician examinations to avoid unnecessary contact with the patient. - Labs CBC & Chem 7: 08/17/20 06:19 08/17/20 06:19 Labs: Abnormal Lab Results - Last 24 Hours (Table) 08/17/20 08/17/20 08/18/20 Range/Units 16:30 20:48 06:52 POC Glucose (mg/dL) 335 H 315 H 242 H (75-99) mg/dL Microbiology - Last 24 Hours (Table) 08/14/20 20:28 Blood Culture - Preliminary Blood No Growth after 72 hours Assessment and Plan Assessment: -Covid 19 infection/pneumonia:continue with Decadron continue with respiratory support, Remdesivir. infectious disease following. Patient currently remains on high flow oxygen via nasal cannula at 15 L with saturations of 90%. -acute hypoxic respiratory failure secondary to Covid 19 -Type 2 diabetes mellitus uncontrolled, to continue with oral antidiabetic along with long-acting and sliding scale at this time -mild hypovolemic hyponatremia, improved currently 140 -Hypertension history, to avoid any hypotension related to sepsis will hold off on antihypertensive medications and monitor vital signs closely -DVT prophylaxis with Lovenox -GI prophylaxis: Pepcid Plan: Continue current medications and continue to monitor closely. Is maintained on oral antibiotics and will continue at this time along with dexamethasone, Remdesivir, and zinc supplements. Will continue to monitor vital signs and labs closely as blood sugars continue to be elevated most likely due to dexamethasone. Will continue with long-acting in the evening along with sliding scale and oral antidiabetic medications. Discussed with the patient about increasing activity as tolerated and possibly weaning off some oxygen as he remains on high flow at 15 L at this time. Will continue to monitor closely. Further recommendations to follow.
[2020-08-18 16:30] LABS: Glucose,Whole Blood 270 mg/dL (75-99)
--- NOTE | 2020-08-18 19:19 | P.CNPUL ---
History of Present Illness Consult date: 08/17/20 Reason for consult: dyspnea, cough, hypoxemia, pneumonia Chief complaint: Fever or shortness of breath started about 5 days ago History of present illness: This is a 59-year-old male who has history of diabetes hypertension hypertensive cardiovascular disease and not feeling well for the last 5-6 days with cough and increased shortness of breath started with a sore throat, patient admitted into the hospital was spiking fever up to 101, oxygen saturation 90%, patient already has been started on REM doesn't wear and Decadron, his initial admit x-ray cystoscopy right midlung field and left lower lid feeding infiltrate patient gradually got worse initially has been on room air oxygen requirement keep on going up to 3 L and subsequently on 5 L high flow oxygen with that oxygen saturation is 93% Review of Systems All systems: negative Past Medical History Past Medical History: Diabetes Mellitus, Hypertension History of Any Multi-Drug Resistant Organisms: None Reported Past Surgical History: Appendectomy Past Psychological History: No Psychological Hx Reported Smoking Status: Never smoker Past Alcohol Use History: None Reported Past Drug Use History: None Reported Medications and Allergies Home Medications Medication Instructions Recorded Confirmed Type Acetaminophen Tab [Tylenol] 1,000 mg PO Q4-6H PRN 08/14/20 08/14/20 History Aspirin EC [Ecotrin Low Dose] 81 mg PO HS 08/14/20 08/14/20 History Insulin Aspart [NovoLOG] See Protocol SQ TID-W/MEALS 08/14/20 08/14/20 History Lisinopril-Hctz 10-12.5 mg 1 tab PO DAILY 08/14/20 08/14/20 History [Zestoretic 10-12.5] metFORMIN HCL 1,000 mg PO BID-W/MEALS 08/14/20 08/14/20 History Allergies Allergy/AdvReac Type Severity Reaction Status Date / Time No Known Allergies Allergy Verified 08/14/20 18:01 Physical Exam Vitals: Vital Signs Temp Pulse Resp BP Pulse Ox 08/17/20 14:37 98.4 F 88 20 153/82 89 L 08/17/20 07:00 97.8 F 95 23 146/79 90 L 08/17/20 01:15 97.7 F 96 26 H 153/78 94 L 08/17/20 00:00 20 08/16/20 20:20 98.0 F 82 19 134/77 93 L Intake and Output 08/17/20 08/17/20 08/17/20 06:59 14:59 22:59 Output Total 300 Balance -300 Output: Urine 300 Other: Voiding Method Toilet Toilet # Voids 1 3 - Constitutional General appearance: cooperative, disheveled, mild distress - EENT Eyes: EOMI, PERRLA Ears: bilateral: normal - Neck Neck: normal ROM Carotids: bilateral: upstroke normal Thyroid: bilateral: normal size - Respiratory Respiratory: bilateral: diminished - Cardiovascular Rhythm: regular Heart sounds: normal: S1, S2 - Gastrointestinal General gastrointestinal: normal bowel sounds - Neurologic Neurologic: CNII-XII intact - Musculoskeletal Musculoskeletal: gait normal, generalized weakness, strength equal bilaterally - Psychiatric Psychiatric: A&O x's 3, appropriate affect, intact judgment & insight Results - Laboratory Findings CBC and BMP: 08/17/20 06:19 08/17/20 06:19 PT/INR, D-dimer PT 9.9 sec (9.0-12.0) 08/14/20 15:25 INR 0.9 (<1.2) 08/14/20 15:25 D-Dimer 0.18 mg/L FEU (<0.60) 08/14/20 15:25 Abnormal lab findings: Abnormal Labs 08/14/20 08/14/20 08/14/20 15:25 15:25 15:25 Plt Count 100 L Neutrophils # Lymphocytes # 0.5 L Sodium 135 L Carbon Dioxide 21 L BUN 23 H BUN/Creatinine Ratio Glucose 317 H POC Glucose (mg/dL) Calcium 8.2 L Ferritin 823.3 H C-Reactive Protein 137.2 H Procalcitonin 0.23 H 08/14/20 08/15/20 08/15/20 21:53 07:06 11:40 Plt Count Neutrophils # Lymphocytes # Sodium Carbon Dioxide BUN BUN/Creatinine Ratio Glucose POC Glucose (mg/dL) 296 H 336 H 362 H Calcium Ferritin C-Reactive Protein Procalcitonin 08/15/20 08/15/20 08/16/20 17:10 20:58 06:48 Plt Count Neutrophils # Lymphocytes # Sodium Carbon Dioxide BUN BUN/Creatinine Ratio Glucose POC Glucose (mg/dL) 245 H 283 H 306 H Calcium Ferritin C-Reactive Protein Procalcitonin 08/16/20 08/16/2020 11:20 16:33 20:49 Plt Count Neutrophils # Lymphocytes # Sodium Carbon Dioxide BUN BUN/Creatinine Ratio Glucose POC Glucose (mg/dL) 309 H 312 H 300 H Calcium Ferritin C-Reactive Protein Procalcitonin 08/17/20 08/17/20 08/17/20 06:19 06:19 06:19 Plt Count 149 L Neutrophils # 9.2 H Lymphocytes # 0.6 L Sodium Carbon Dioxide BUN 29.0 H BUN/Creatinine Ratio 26.36 H Glucose 289 H POC Glucose (mg/dL) Calcium 8.6 L Ferritin C-Reactive Protein 9.6 H Procalcitonin 0.16 H 08/17/20 08/17/20 08/17/20 06:53 11:28 16:30 Plt Count Neutrophils # Lymphocytes # Sodium Carbon Dioxide BUN BUN/Creatinine Ratio Glucose POC Glucose (mg/dL) 258 H 290 H 335 H Calcium Ferritin C-Reactive Protein Procalcitonin - Diagnostic Findings Chest x-ray: report reviewed, image reviewed (All Chest x-ray reviewed overall continued to show bilateral patchy infiltrate) Assessment and Plan Assessment: Acute hypoxic respiratory failure Covid 19 pneumonia Type 2 diabetes mellitus Hypertension hypertensive cardiovascular disease Dehydration hypovolemia and hyponatremia Depression Plan: Agree with supplemental oxygen Prone positioning Deep breathing exercise incentive spirometry Increase activity as tolerated Continue Decadron and IV Remdesivir for 10 and 5 days respectively Further plan of care as per clinical response of the patient Time with Patient: Greater than 30
--- NOTE | 2020-08-18 19:21 | P.PN ---
Subjective Progress Note Date: 08/18/20 Principal diagnosis: Acute hypoxic respiratory failure Covid 19 pneumonia Type 2 diabetes mellitus Hypertension hypertensive cardiovascular disease Dehydration hypovolemia and hyponatremia Depression August 18 2020, patient seen eval examined during the rounds is still on 5 L high flow oxygen, denies any chest pain breathing difficulties present, denies any cough or sputum production labs chest x-ray reviewed This is a 59-year-old male who has history of diabetes hypertension hypertensive cardiovascular disease and not feeling well for the last 5-6 days with cough and increased shortness of breath started with a sore throat, patient admitted into the hospital was spiking fever up to 101, oxygen saturation 90%, patient already has been started on REM doesn't wear and Decadron, his initial admit x-ray cystoscopy right midlung field and left lower lid feeding infiltrate patient gradually got worse initially has been on room air oxygen requirement keep on going up to 3 L and subsequently on 5 L high flow oxygen with that oxygen saturation is 93% Objective - Vital Signs Vital signs: Vital Signs Temp 97.8 F 08/18/20 14:23 Pulse 81 08/18/20 14:23 Resp 20 08/18/20 14:23 BP 149/81 08/18/20 14:23 Pulse Ox 90 L 08/18/20 14:23 Intake & Output 08/18/20 08/18/20 08/19/20 06:59 18:59 06:59 Output Total 1150 Balance -1150 Output: Urine 1150 Other: Voiding Method Bedside Commode Bedside Commode Urinal Urinal # Voids 1 3 - Exam - Constitutional General appearance: cooperative, disheveled, mild distress - EENT Eyes: EOMI, PERRLA Ears: bilateral: normal - Neck Neck: normal ROM Carotids: bilateral: upstroke normal Thyroid: bilateral: normal size - Respiratory Respiratory: bilateral: diminished - Cardiovascular Rhythm: regular Heart sounds: normal: S1, S2 - Gastrointestinal General gastrointestinal: normal bowel sounds - Neurologic Neurologic: CNII-XII intact - Musculoskeletal Musculoskeletal: gait normal, generalized weakness, strength equal bilaterally - Psychiatric Psychiatric: A&O x's 3, appropriate affect, intact judgment & insight - Labs CBC & Chem 7: 08/17/20 06:19 08/17/20 06:19 Labs: Abnormal Lab Results - Last 24 Hours (Table) 08/17/20 08/18/20 08/18/20 Range/Units 20:48 06:52 11:55 POC Glucose (mg/dL) 315 H 242 H 315 H (75-99) mg/dL 08/18/20 Range/Units 16:29 POC Glucose (mg/dL) 270 H (75-99) mg/dL Microbiology - Last 24 Hours (Table) 08/14/20 20:28 Blood Culture - Preliminary Blood No Growth after 72 hours Assessment and Plan Assessment: Acute hypoxic respiratory failure Covid 19 pneumonia Type 2 diabetes mellitus Hypertension hypertensive cardiovascular disease Dehydration hypovolemia and hyponatremia Depression Plan: Agree with supplemental oxygen Prone positioning Deep breathing exercise incentive spirometry Increase activity as tolerated Continue Decadron and IV Remdesivir for 10 and 5 days respectively Further plan of care as per clinical response of the patient Time with Patient: Greater than 30
[2020-08-18 20:19] LABS: Glucose,Whole Blood 307 mg/dL (75-99)
[2020-08-18] MEDS: ASPIRIN 81 MG PO SCH (20:47)
[2020-08-18] MEDS: INSULIN DETEMIR (LEVEMIR) 100 UNIT/ML SYR SQ SCH (20:47)
--- NOTE | 2020-08-18 23:05 | PN ---
PROGRESS NOTE DATE OF SERVICE: 08/18/2020 REASON FOR FOLLOWUP: Acute COVID-19 pneumonia. INTERVAL HISTORY: Patient is currently afebrile. He is breathing slightly comfortably, however, still requiring high-flow supplemental oxygen. The patient denies having any chest pain. Minimal cough. No nausea, no vomiting. No abdominal pain or diarrhea. PHYSICAL EXAMINATION: Blood pressure is 149/81 with a pulse of 81, temperature 97.8. He is 90% on 15 L high- flow oxygen. General description is a middle-aged male lying in bed in no distress. Respiratory system: Unlabored breathing, decreased breath sounds in the base, with no wheeze. Heart S1, S2. Regular rate and rhythm. Abdomen soft, no tenderness. LABS: No new labs have been obtained today. DIAGNOSTIC IMPRESSION AND PLAN: Patient with acute COVID-19 pneumonia. This patient is currently being treated with dexamethasone, Lovenox, and Remdesivir, zinc sulfate, to continue. Seemed to have slight worsening of his respiratory status requiring high-flow oxygen. Pulmonary service already on the case. Await their recommendations. Continue supportive care. MMODL / IJN: [id number] /
[2020-08-19 07:00] LABS: Basophils # (A) 0.2 k/uL (0-0.2); Basophils % (A) 1 %; Eosinophils % (A) 0 %; HCT 47.5 % (39.0-53.0); HGB 15.7 gm/dL (13.0-17.5); Lymphocytes # (A) 0.6 k/uL (1.0-4.8); Lymphocytes % (A) 3 %; MCH 28.6 pg (25.0-35.0); MCV 86.5 fL (80.0-100.0); Mean Platelet Volume 8.3; Monocytes # (A) 1.1 k/uL (0-1.0); Monocytes % (A) 6 %; Neutrophils # (A) 15.8 k/uL (1.3-7.7); Neutrophils % (A) 88 %; Platelet Count 183 k/uL (150-450); RBC 5.49 m/uL (4.30-5.90); RDW 13.5 % (11.5-15.5); WBC 17.9 k/uL (3.8-10.6)
[2020-08-19 07:12] LABS: Glucose,Whole Blood 266 mg/dL (75-99)
[2020-08-19] MEDS: FAMOTIDINE 20 MG TAB PO SCH ×2 (08:07→20:59)
[2020-08-19] MEDS: ASCORBIC ACID 500 MG TAB PO SCH (08:07)
[2020-08-19] MEDS: metFORMIN 500 MG TAB PO SCH ×2 (08:08→17:19)
[2020-08-19] MEDS: ZINC SULFATE 220 MG CAP PO SCH (08:08)
[2020-08-19] MEDS: INSULIN ASPART (NovoLOG) 100 UNIT/ML VIAL SQ SCH ×4 (08:08→20:59)
[2020-08-19] MEDS: dexAMETHasone 2 MG TAB PO SCH (08:08)
[2020-08-19] MEDS: ENOXAPARIN 40 MG/0.4 ML SYRINGE SQ SCH (08:08)
[2020-08-19 09:19] LABS: African American GFR (CKD) 95.7 (60.0-200.0); Anion Gap 9.4 mmol/L (4.00-12.00); Calcium 8.6 mg/dL (8.7-10.3); Carbon Dioxide 25.6 mmol/L (21.6-31.8); Non-African American GFR(CKD) 82.6 (60.0-200.0); Potassium 4.6 mmol/L (3.5-5.5)
--- NOTE | 2020-08-19 11:36 | P.PN ---
Subjective Progress Note Date: 08/19/20 Principal diagnosis: Acute hypoxic respiratory failure Covid 19 pneumonia Type 2 diabetes mellitus Hypertension hypertensive cardiovascular disease Dehydration hypovolemia and hyponatremia Depression 08/19/2020, patient seen eval examined during the rounds labs reviewed medi cations reviewed care plan discussed, patient is sitting upright on the bed on 100% nonrebreather mask, saturation remains marginal about 88%, remains afebrile, slightly anxious, advised based he hasn't to be on prone position as much as possible, labs reviewed white cell count is 17,000, patient remains on Remdesivir, Decadron, Lovenox August 18 2020, patient seen eval examined during the rounds is still on 5 L high flow oxygen, denies any chest pain breathing difficulties present, denies any cough or sputum production labs chest x-ray reviewed This is a 59-year-old male who has history of diabetes hypertension hypertensive cardiovascular disease and not feeling well for the last 5-6 days with cough and increased shortness of breath started with a sore throat, patient admitted into the hospital was spiking fever up to 101, oxygen saturation 90%, patient already has been started on REM doesn't wear and Decadron, his initial admit x-ray cystoscopy right midlung field and left lower lid feeding infiltrate patient gradually got worse initially has been on room air oxygen requirement keep on going up to 3 L and subsequently on 5 L high flow oxygen with that oxygen saturation is 93% Objective - Vital Signs Vital signs: Vital Signs Temp 98.4 F 08/19/20 07:00 Pulse 79 08/19/20 07:00 Resp 24 08/19/20 07:00 BP 153/80 08/19/20 07:00 Pulse Ox 88 L 08/19/20 07:46 Intake & Output 08/18/20 08/19/20 08/19/20 18:59 06:59 18:59 Output Total 1150 350 Balance -1150 -350 Output: Urine 1150 350 Other: Voiding Method Bedside Commode Bedside Commode Urinal Urinal # Voids 3 3 # Bowel Movements 1 - Exam - Constitutional General appearance: cooperative, disheveled, mild distress - EENT Eyes: EOMI, PERRLA Ears: bilateral: normal - Neck Neck: normal ROM Carotids: bilateral: upstroke normal Thyroid: bilateral: normal size - Respiratory Respiratory: bilateral: diminished - Cardiovascular Rhythm: regular Heart sounds: normal: S1, S2 - Gastrointestinal General gastrointestinal: normal bowel sounds - Neurologic Neurologic: CNII-XII intact - Musculoskeletal Musculoskeletal: gait normal, generalized weakness, strength equal bilaterally - Psychiatric Psychiatric: A&O x's 3, appropriate affect, intact judgment & insight - Labs CBC & Chem 7: 08/19/20 06:36 08/19/20 06:36 Labs: Abnormal Lab Results - Last 24 Hours (Table) 08/18/20 08/18/20 08/18/20 Range/Units 11:55 16:29 20:17 WBC (3.8-10.6) k/uL Neutrophils # (1.3-7.7) k/uL Lymphocytes # (1.0-4.8) k/uL Monocytes # (0-1.0) k/uL BUN (9.0-27.0) mg/dL BUN/Creatinine Ratio (12.00-20.00) Ratio Glucose (70-110) mg/dL POC Glucose (mg/dL) 315 H 270 H 307 H (75-99) mg/dL Calcium (8.7-10.3) mg/dL 08/19/20 08/19/20 08/19/20 Range/Units 06:36 06:36 07:11 WBC 17.9 H (3.8-10.6) k/uL Neutrophils # 15.8 H (1.3-7.7) k/uL Lymphocytes # 0.6 L (1.0-4.8) k/uL Monocytes # 1.1 H (0-1.0) k/uL BUN 31.0 H (9.0-27.0) mg/dL BUN/Creatinine Ratio 31.00 H (12.00-20.00) Ratio Glucose 256 H (70-110) mg/dL POC Glucose (mg/dL) 266 H (75-99) mg/dL Calcium 8.6 L (8.7-10.3) mg/dL Microbiology - Last 24 Hours (Table) 08/14/20 20:28 Blood Culture - Preliminary Blood No Growth after 96 hours Assessment and Plan Assessment: Acute hypoxic respiratory failure Covid 19 pneumonia Type 2 diabetes mellitus Hypertension hypertensive cardiovascular disease Dehydration hypovolemia and hyponatremia Depression Plan: Agree with supplemental oxygen and nonrebreather mask may need BiPAP as needed O follow closely Prone positioning as much as 16 hour a day either continuous or intermittent Deep breathing exercise incentive spirometry Increase activity as tolerated Continue Decadron and IV Remdesivir for 10 and 5 days respectively Further plan of care as per clinical response of the patient Time with Patient: Greater than 30
[2020-08-19 11:37] LABS: Glucose,Whole Blood 311 mg/dL (75-99)
[2020-08-19] MEDS: REMDESIVIR 100 MG in SODIUM CHLORIDE 0.9% 250 ML IVPB SCH (13:52)
--- NOTE | 2020-08-19 16:04 | P.PN ---
Subjective Progress Note Date: 08/19/20 53-year-old male is admitted for Covid19 pneumonitis, sepsis. Patient went into hypoxemia last night ended up on 3 L of oxygen.overall feeling little bit better. 08/17/2020 Patient's is pretty status is worse and patient is not doing well in spite of high flow nasal cannula oxygen along with 100% many mask. Patient is being started on Remdesivir. Patient is still complaining of shortness of breath Constitutional: Denied any fatigue denied any fever. Cardio vascular: denied any chest pain, palpitations Gastrointestinal denied any nausea vomiting Pulmonary: As mentioned above Neurologic denied any new focal deficits All inpatient medications were reviewed and appropriate changes in these medic ations as dictated in the interval history and assessment and plan. 08/18/2020 Patient is seen and evaluated in follow-up and continues to be maintained on high flow oxygen via nasal cannula. Infectious disease is following. Patient continues to have shortness of breath especially with exertion. Discussed with the patient about increasing activity and getting up to the commode and chair. Patient states he feels slightly better today although continues to be extremely dyspneic. Review of systems: Constitutional: No reports of fatigue, fever, or chills Cardiovascular: No reports of chest pain or palpitations Respiratory: Reports shortness of breath with occasional cough GI: No reports of nausea, vomiting, or diarrhea : No reports of dysuria or retention Neurovascular: No reports of weakness or numbness All medications have been reviewed 08/19/2020 Patient is seen and evaluated in follow-up with no real improvement of respiratory status. Patient continues to sat in the low 80s and drops quickly without oxygen. He she is currently maintained on 15 L high flow oxygen along w ith a nonrebreather over that and was able to obtain 90% oxygen saturation. Patient is currently sitting up at the bedside asking when he can go home. Discussed with the patient at length about respiratory status and his inability to come off oxygen at this time. White blood count elevated at 17.9 from yesterday. BMP within normal limits although blood glucose levels continue to be elevated. Patient is maintained on sliding scale along with long-acting and oral antidiabetic medications. Will continue to monitor as the dexamethasone may be a component of elevated glucose levels. Discussed with the patient about incentive spirometer and instructed to use at least 10 times every hour while awake. Patient currently denies any chest pain or palpitations. Patient is afebrile. No reports of nausea or vomiting patient states he does not have much of an appetite although is tolerating diet. Objective - Vital Signs Vital signs: Vital Signs Temp 98.4 F 08/19/20 07:00 Pulse 79 08/19/20 07:00 Resp 24 08/19/20 07:00 BP 153/80 08/19/20 07:00 Pulse Ox 90 L 08/19/20 12:59 Intake & Output 08/18/20 08/19/20 08/19/20 18:59 06:59 18:59 Output Total 1150 350 Balance -1150 -350 Output: Urine 1150 350 Other: Voiding Method Bedside Commode Bedside Commode Urinal Urinal # Voids 3 3 # Bowel Movements 1 - Exam GENERAL: The patient is alert and oriented x3, patient continues to be in mild respiratory distress. Well developed, well nourished. HEENT: Pupils are round and equally reacting to light. EOMI. No scleral icterus. No conjunctival pallor. Normocephalic, atraumatic. No pharyngeal erythema. No thyromegaly. CARDIOVASCULAR: S1 and S2 present. No murmurs, rubs, or gallops. PULMONARY: Bilateral scattered rhonchi, no wheezing noted with bilateral diminished air entry, tachypneic, nasal cannula and nonrebreather noted upon exam ABDOMEN: Soft, nontender, nondistended, normoactive bowel sounds. No palpable organomegaly. MUSCULOSKELETAL: No joint swelling or deformity. EXTREMITIES: No cyanosis, clubbing, or pedal edema. NEUROLOGICAL: Gross neurological examination did not reveal any focal deficits. SKIN: No rashes. Note: Because of COVID 19 isolation, some of the history and physical exam findings are indirect and obtained from nursing staff, and other physician examinations to avoid unnecessary contact with the patient. - Labs CBC & Chem 7: 08/19/20 06:36 08/19/20 06:36 Labs: Abnormal Lab Results - Last 24 Hours (Table) 08/18/20 08/18/20 08/19/20 Range/Units 16:29 20:17 06:36 WBC 17.9 H (3.8-10.6) k/uL Neutrophils # 15.8 H (1.3-7.7) k/uL Lymphocytes # 0.6 L (1.0-4.8) k/uL Monocytes # 1.1 H (0-1.0) k/uL BUN (9.0-27.0) mg/dL BUN/Creatinine Ratio (12.00-20.00) Ratio Glucose (70-110) mg/dL POC Glucose (mg/dL) 270 H 307 H (75-99) mg/dL Calcium (8.7-10.3) mg/dL 08/19/20 08/19/20 08/19/20 Range/Units 06:36 07:11 11:34 WBC (3.8-10.6) k/uL Neutrophils # (1.3-7.7) k/uL Lymphocytes # (1.0-4.8) k/uL Monocytes # (0-1.0) k/uL BUN 31.0 H (9.0-27.0) mg/dL BUN/Creatinine Ratio 31.00 H (12.00-20.00) Ratio Glucose 256 H (70-110) mg/dL POC Glucose (mg/dL) 266 H 311 H (75-99) mg/dL Calcium 8.6 L (8.7-10.3) mg/dL Microbiology - Last 24 Hours (Table) 08/14/20 20:28 Blood Culture - Preliminary Blood No Growth after 96 hours Assessment and Plan Assessment: -Covid 19 infection/pneumonia:continue with Decadron continue with respiratory support, Remdesivir. infectious disease following. Patient currently remains on high flow oxygen via nasal cannula at 15 L with saturations of 90%. Nonrebreather added although patient does not like the feel of it and tends to take it off often. -acute hypoxic respiratory failure secondary to Covid 19 -Type 2 diabetes mellitus uncontrolled, to continue with oral antidiabetic along with long-acting and sliding scale at this time -mild hypovolemic hyponatremia, improved -Hypertension history, to avoid any hypotension related to sepsis will hold off on antihypertensive medications and monitor vital signs closely -DVT prophylaxis with Lovenox -GI prophylaxis: Pepcid Plan: Continue current medications and continue to monitor closely. Is maintained on oral antibiotics and will continue at this time along with dexamethasone, Remdesivir, and zinc supplements. Will continue to monitor vital signs and labs closely as blood sugars continue to be elevated most likely due to dexamethasone. Will continue with long-acting in the evening along with sliding scale and oral antidiabetic medications. Discussed with the patient about incre asing activity as tolerated and possibly weaning off some oxygen as he remains on high flow at 15 L at this time. Will continue to monitor closely. Further recommendations to follow.
[2020-08-19 16:47] LABS: Glucose,Whole Blood 322 mg/dL (75-99)
[2020-08-19 20:24] LABS: Glucose,Whole Blood 339 mg/dL (75-99)
[2020-08-19] MEDS: ASPIRIN 81 MG PO SCH (20:59)
[2020-08-19] MEDS: INSULIN DETEMIR (LEVEMIR) 100 UNIT/ML SYR SQ SCH (20:59)
--- NOTE | 2020-08-19 23:11 | PN ---
PROGRESS NOTE DATE OF SERVICE: 08/19/2020 REASON FOR FOLLOWUP: Acute COVID-19 infection. INTERVAL HISTORY: Patient is currently afebrile. The patient is still requiring high-flow nasal cannula oxygen, along with non-rebreather. Denies having any worsening shortness of breath or chest pain. No abdominal pain. No diarrhea. PHYSICAL EXAMINATION: Blood pressure is 153/88 with a pulse of 79, temperature 99.3. He is 90% on 15 L high- flow oxygen. General description is a middle-aged male lying in bed in no distress. Respiratory system: Unlabored breathing, decreased intensity of breath sounds. No wheeze. HEART: S1, S2. Regular rate and rhythm. Abdomen soft, no tenderness. LABS: Hemoglobin 15.4, 17.9, BUN of 31, creatinine 1.0. Blood culture has been negative. DIAGNOSTIC IMPRESSION AND PLAN: Patient with acute COVID-19 pneumonia in this patient currently covered with Remdesivir, dexamethasone and Lovenox as well as zinc. The patient did have slight worsening of his clinical condition. We will repeat his inflammatory markers tomorrow and continue supportive care. Monitor clinical course closely. Prognosis remains to be guarded despite aggressive therapy. MMODL / IJN: [id number] /
[2020-08-20 07:03] LABS: Glucose,Whole Blood 267 mg/dL (75-99)
[2020-08-20] MEDS: ENOXAPARIN 40 MG/0.4 ML SYRINGE SQ SCH (07:32)
[2020-08-20] MEDS: FAMOTIDINE 20 MG TAB PO SCH ×2 (07:32→21:02)
[2020-08-20] MEDS: ZINC SULFATE 220 MG CAP PO SCH (07:32)
[2020-08-20] MEDS: metFORMIN 500 MG TAB PO SCH ×2 (07:32→17:24)
[2020-08-20] MEDS: ASCORBIC ACID 500 MG TAB PO SCH (07:32)
[2020-08-20] MEDS: INSULIN ASPART (NovoLOG) 100 UNIT/ML VIAL SQ SCH ×4 (07:33→21:02)
--- NOTE | 2020-08-20 07:47 | XR ---
EXAMINATION TYPE: XR chest 1V portable DATE OF EXAM: 08/20/2020 COMPARISON: Prior chest x-ray dated 08/17/2020 HISTORY: Pneumonia TECHNIQUE: Single frontal view of the chest is obtained. FINDINGS: There is been interval development of a right apical pneumothorax. Bilateral airspace dise ase has progressed. There is pneumomediastinum. Heart is likely stable, the aorta is dense. Subcutane ous emphysema noted over the upper chest. IMPRESSION: Pneumothorax, pneumomediastinum, subcutaneous emphysema, bilateral airspace disease has worsened A Red level critical message alert has been initiated for Sarah De Guzman MD via the [facility] Critical Results System on 08/20/2020 7:42 AM. This message alert has been sent to Sarah De Guzman MD via the preferences provided by the clinician for the receipt of Radiology Critical Findings. Message ID [id number]. Report relayed to Merline telephonically at the time of interpretation at exam.
[2020-08-20 08:08] LABS: Basophils # (A) 0.2 k/uL (0-0.2); Basophils % (A) 1 %; Eosinophils % (A) 0 %; HCT 48.2 % (39.0-53.0); HGB 16.1 gm/dL (13.0-17.5); Lymphocytes # (A) 0.5 k/uL (1.0-4.8); Lymphocytes % (A) 2 %; MCHC 33.4 g/dL (31.0-37.0); MCV 86.7 fL (80.0-100.0); Mean Platelet Volume 8.4; Monocytes # (A) 1.3 k/uL (0-1.0); Monocytes % (A) 6 %; Neutrophils # (A) 18.4 k/uL (1.3-7.7); Neutrophils % (A) 89 %; Platelet Count 196 k/uL (150-450); RBC 5.56 m/uL (4.30-5.90); RDW 13.6 % (11.5-15.5); WBC 20.7 k/uL (3.8-10.6)
[2020-08-20] MEDS: dexAMETHasone 2 MG TAB PO SCH (08:12)
[2020-08-20 11:07] LABS: Glucose,Whole Blood 217 mg/dL (75-99)
[2020-08-20 11:15] LABS: African American GFR (CKD) 95.7 (60.0-200.0); Albumin 3.6 g/dL (3.80-4.90); Albumin/Globulin Ratio 1.71 (1.60-3.17); Anion Gap 13.7 mmol/L (4.00-12.00); C Reactive Protein 7.6 mg/dL (0.0-0.8); Calcium 8.5 mg/dL (8.7-10.3); Carbon Dioxide 24.3 mmol/L (21.6-31.8); Globulin 2.1 g/dL (1.6-3.3); Non-African American GFR(CKD) 82.6 (60.0-200.0); Potassium 4.7 mmol/L (3.5-5.5); Total Bilirubin 0.9 mg/dL (0.3-1.2); Total Protein 5.7 g/dL (6.2-8.2)
--- NOTE | 2020-08-20 11:36 | XR ---
"EXAMINATION TYPE: XR chest 1V portable DATE OF EXAM: 08/20/2020 COMPARISON: Prior chest x-ray same dated earlier time HISTORY: Pneumothorax TECHNIQUE: Single frontal view of the chest is obtained. FINDINGS: Right-sided pneumothorax is thought to have progressed slightly in the interval. There is pneumomediastinum, subcutaneous emphysema. Bilateral airspace disease again noted. No definite tensio n, patient is rotated. IMPRESSION: Suspect some progression in patient's right-sided pneumothorax. A Red level critical message alert has been initiated for Jean-Pierre López MD~[id number] via the [facility] | Critical Results System on 08/20/2020 11:33 AM. This message alert has been sent to Jean-Pierre López MD ~[id number] via the preferences provided by the clinician for the receipt of Radiology Critical Findings . Message ID [id number]."
--- NOTE | 2020-08-20 11:45 | P.PN ---
Subjective Progress Note Date: 08/20/20 Principal diagnosis: Acute hypoxic respiratory failure Covid 19 pneumonia Type 2 diabetes mellitus Hypertension hypertensive cardiovascular disease Dehydration hypovolemia and hyponatremia Depression 08/20/2020, patient seen eval examined during the rounds a labs reviewed me dications reviewed this morning patient had problems with agitated anxiety and a prehension, oxygen saturation dropped down into 70s, rapid response was called and stat chest x-ray revealed presence of pneumothorax which is significant on the right side as well they may be a small mediastinal emphysema on the left side as well, patient has been made semi-prone with that oxygen saturation 100% nonrebreather mask improved to 92% patient is more calm, he remains afebrile temperature is 98.3 respiratory rate and mid to high 20s, weight is oxygen saturation 94%, chest x-ray finding reviewed 08/19/2020, patient seen eval examined during the rounds labs reviewed medications reviewed care plan discussed, patient is sitting upright on the bed on 100% nonrebreather mask, saturation remains marginal about 88%, remains afebrile, slightly anxious, advised based he hasn't to be on prone position as m uch as possible, labs reviewed white cell count is 17,000, patient remains on Remdesivir, Decadron, Lovenox August 18 2020, patient seen eval examined during the rounds is still on 5 L high flow oxygen, denies any chest pain breathing difficulties present, denies any cough or sputum production labs chest x-ray reviewed This is a 59-year-old male who has history of diabetes hypertension hypertensive cardiovascular disease and not feeling well for the last 5-6 days with cough and increased shortness of breath started with a sore throat, patient admitted into the hospital was spiking fever up to 101, oxygen saturation 90%, patient already has been started on REM doesn't wear and Decadron, his initial admit x-ray cystoscopy right midlung field and left lower lid feeding infiltrate patient gradually got worse initially has been on room air oxygen requirement keep on going up to 3 L and subsequently on 5 L high flow oxygen with that oxygen saturation is 93%, critical care time spent 35 minutes Objective - Vital Signs Vital signs: Vital Signs Temp 98.3 F 08/20/20 10:57 Pulse 94 08/20/20 10:57 Resp 28 H 08/20/20 10:57 BP 152/77 08/20/20 10:57 Pulse Ox 94 L 08/20/20 10:57 Intake & Output 08/19/20 08/20/20 08/20/20 18:59 06:59 18:59 Intake Total 250 Output Total 1900 Balance -1900 250 Intake: Intake, IV Titration 250 Amount Remdesivir (Eua) 100 mg 250 In Sodium Chloride 0.9% 250 ml @ 250 mls/hr IVPB DAILY@1300 [facility] Rx#: [id number] Output: Urine 1900 Other: Voiding Method Bedside Commode Urinal # Voids 3 1 # Bowel Movements 1 - Exam - Constitutional General appearance: cooperative, disheveled, mild distress - EENT Eyes: EOMI, PERRLA Ears: bilateral: normal - Neck Neck: normal ROM Carotids: bilateral: upstroke normal Thyroid: bilateral: normal size - Respiratory Respiratory: bilateral: diminished - Cardiovascular Rhythm: regular Heart sounds: normal: S1, S2 - Gastrointestinal General gastrointestinal: normal bowel sounds - Neurologic Neurologic: CNII-XII intact - Musculoskeletal Musculoskeletal: gait normal, generalized weakness, strength equal bilaterally - Psychiatric Psychiatric: A&O x's 3, appropriate affect, intact judgment & insight - Labs CBC & Chem 7: 08/20/20 07:26 08/20/20 07:26 Labs: Abnormal Lab Results - Last 24 Hours (Table) 08/19/20 08/19/20 08/20/20 Range/Units 16:46 20:24 07:02 WBC (3.8-10.6) k/uL Neutrophils # (1.3-7.7) k/uL Lymphocytes # (1.0-4.8) k/uL Monocytes # (0-1.0) k/uL D-Dimer (<0.60) mg/L FEU Anion Gap (4.00-12.00) mmol/L BUN/Creatinine Ratio (12.00-20.00) Ratio Glucose (70-110) mg/dL POC Glucose (mg/dL) 322 H 339 H 267 H (75-99) mg/dL Calcium (8.7-10.3) mg/dL C-Reactive Protein (0.0-0.8) mg/dL Total Protein (6.2-8.2) g/dL Albumin (3.80-4.90) g/dL 08/20/20 08/20/20 08/20/20 Range/Units 07:26 07:26 07:26 WBC 20.7 H (3.8-10.6) k/uL Neutrophils # 18.4 H (1.3-7.7) k/uL Lymphocytes # 0.5 L (1.0-4.8) k/uL Monocytes # 1.3 H (0-1.0) k/uL D-Dimer 13.05 H (<0.60) mg/L FEU Anion Gap 13.70 H (4.00-12.00) mmol/L BUN/Creatinine Ratio 27.00 H (12.00-20.00) Ratio Glucose 215 H (70-110) mg/dL POC Glucose (mg/dL) (75-99) mg/dL Calcium 8.5 L (8.7-10.3) mg/dL C-Reactive Protein 7.6 H (0.0-0.8) mg/dL Total Protein 5.7 L (6.2-8.2) g/dL Albumin 3.60 L (3.80-4.90) g/dL 08/20/20 Range/Units 11:06 WBC (3.8-10.6) k/uL Neutrophils # (1.3-7.7) k/uL Lymphocytes # (1.0-4.8) k/uL Monocytes # (0-1.0) k/uL D-Dimer (<0.60) mg/L FEU Anion Gap (4.00-12.00) mmol/L BUN/Creatinine Ratio (12.00-20.00) Ratio Glucose (70-110) mg/dL POC Glucose (mg/dL) 217 H (75-99) mg/dL Calcium (8.7-10.3) mg/dL C-Reactive Protein (0.0-0.8) mg/dL Total Protein (6.2-8.2) g/dL Albumin (3.80-4.90) g/dL Microbiology - Last 24 Hours (Table) 08/14/20 20:28 Blood Culture - Preliminary Blood No Growth after 120 hours Assessment and Plan Assessment: Significant large right-sided pneumothorax Pneumomediastinum Acute hypoxic respiratory failure Covid 19 pneumonia Type 2 diabetes mellitus Hypertension hypertensive cardiovascular disease Dehydration hypovolemia and hyponatremia Depression Plan: We'll put right-sided chest tube in For now oxygen saturation is stable patient is an semi-prone with the right- sided up Agree with supplemental oxygen and nonrebreather mask may need BiPAP as needed O follow closely Prone positioning as much as 16 hour a day either continuous or intermittent Deep breathing exercise incentive spirometry Increase activity as tolerated Continue Decadron and IV Remdesivir for 10 and 5 days respectively Further plan of care as per clinical response of the patient Time with Patient: Greater than 30
[2020-08-20 12:02] LABS: INR 1.1 (<1.2); Prothrombin Time 11.4 sec (9.0-12.0)
[2020-08-20] MEDS: REMDESIVIR 100 MG in SODIUM CHLORIDE 0.9% 250 ML IVPB SCH (12:58)
--- NOTE | 2020-08-20 16:03 | P.PN ---
Subjective Progress Note Date: 08/20/20 53-year-old male is admitted for Covid19 pneumonitis, sepsis. Patient went into hypoxemia last night ended up on 3 L of oxygen.overall feeling little bit better. 08/17/2020 Patient's is pretty status is worse and patient is not doing well in spite of high flow nasal cannula oxygen along with 100% many mask. Patient is being started on Remdesivir. Patient is still complaining of shortness of breath Constitutional: Denied any fatigue denied any fever. Cardio vascular: denied any chest pain, palpitations Gastrointestinal denied any nausea vomiting Pulmonary: As mentioned above Neurologic denied any new focal deficits All inpatient medications were reviewed and appropriate changes in these medic ations as dictated in the interval history and assessment and plan. 08/18/2020 Patient is seen and evaluated in follow-up and continues to be maintained on high flow oxygen via nasal cannula. Infectious disease is following. Patient continues to have shortness of breath especially with exertion. Discussed with the patient about increasing activity and getting up to the commode and chair. Patient states he feels slightly better today although continues to be extremely dyspneic. Review of systems: Constitutional: No reports of fatigue, fever, or chills Cardiovascular: No reports of chest pain or palpitations Respiratory: Reports shortness of breath with occasional cough GI: No reports of nausea, vomiting, or diarrhea : No reports of dysuria or retention Neurovascular: No reports of weakness or numbness All medications have been reviewed 08/19/2020 Patient is seen and evaluated in follow-up with no real improvement of respiratory status. Patient continues to sat in the low 80s and drops quickly without oxygen. He she is currently maintained on 15 L high flow oxygen along w ith a nonrebreather over that and was able to obtain 90% oxygen saturation. Patient is currently sitting up at the bedside asking when he can go home. Discussed with the patient at length about respiratory status and his inability to come off oxygen at this time. White blood count elevated at 17.9 from yesterday. BMP within normal limits although blood glucose levels continue to be elevated. Patient is maintained on sliding scale along with long-acting and oral antidiabetic medications. Will continue to monitor as the dexamethasone may be a component of elevated glucose levels. Discussed with the patient about incentive spirometer and instructed to use at least 10 times every hour while awake. Patient currently denies any chest pain or palpitations. Patient is afebrile. No reports of nausea or vomiting patient states he does not have much of an appetite although is tolerating diet. 08/20/2020 Patient is seen in follow-up and continues to be on a nonrebreather and 15 L high flow oxygen and was found to be extremely anxious and hypoxic with saturations in the 70s earlier this morning Repeat chest x-ray done today shows right side pneumothorax along with pneumo mediastinum, subcutaneous emphysema. Pulmonary Dr. López is following and will be placing a chest tube this afternoon. Lovenox dose will be adjusted once chest tube is placed. White blood count elevated at 20.7. D-dimer was found to be 13.05. Review of systems: Constitutional: Anxious, no reports of fever, or chills Cardiovascular: No reports of chest pain or palpitations Respiratory: reports worsening shortness of breath and difficulty breathing GI: No reports of nausea, vomiting, or diarrhea : No reports of dysuria or retention Neurovascular: No reports of weakness or numbness All medications have been reviewed Objective - Vital Signs Vital signs: Vital Signs Temp 98.3 F 08/20/20 10:57 Pulse 89 08/20/20 13:15 Resp 28 H 08/20/20 10:57 BP 152/77 08/20/20 10:57 Pulse Ox 89 L 08/20/20 13:15 Intake & Output 08/19/20 08/20/20 08/20/20 18:59 06:59 18:59 Intake Total 250 Output Total 1900 Balance -1900 250 Intake: Intake, IV Titration 250 Amount Remdesivir (Eua) 100 mg 250 In Sodium Chloride 0.9% 250 ml @ 250 mls/hr IVPB DAILY@1300 [facility] Rx#: [id number] Output: Urine 1900 Other: Voiding Method Bedside Commode Urinal # Voids 3 1 # Bowel Movements 1 - Exam GENERAL: The patient is alert and oriented x3, patient continues to be in mild respiratory distress. Anxious. Well developed, well nourished. HEENT: Pupils are round and equally reacting to light. EOMI. No scleral icterus. No conjunctival pallor. Normocephalic, atraumatic. No pharyngeal erythema. No thyromegaly. CARDIOVASCULAR: S1 and S2 present. No murmurs, rubs, or gallops. PULMONARY: Bilateral scattered rhonchi, no wheezing noted diminished air entry bilaterally worse on the right, tachypneic, nasal cannula and nonrebreather noted upon exam ABDOMEN: Soft, nontender, nondistended, normoactive bowel sounds. No palpable organomegaly. MUSCULOSKELETAL: No joint swelling or deformity. EXTREMITIES: No cyanosis, clubbing, or pedal edema. NEUROLOGICAL: Gross neurological examination did not reveal any focal deficits. SKIN: No rashes. Note: Because of COVID 19 isolation, some of the history and physical exam findings are indirect and obtained from nursing staff, and other physician examinations to avoid unnecessary contact with the patient. - Labs CBC & Chem 7: 08/20/20 07:26 08/20/20 07:26 Labs: Abnormal Lab Results - Last 24 Hours (Table) 08/19/20 08/19/20 08/20/20 Range/Units 16:46 20:24 07:02 WBC (3.8-10.6) k/uL Neutrophils # (1.3-7.7) k/uL Lymphocytes # (1.0-4.8) k/uL Monocytes # (0-1.0) k/uL D-Dimer (<0.60) mg/L FEU Anion Gap (4.00-12.00) mmol/L BUN/Creatinine Ratio (12.00-20.00) Ratio Glucose (70-110) mg/dL POC Glucose (mg/dL) 322 H 339 H 267 H (75-99) mg/dL Calcium (8.7-10.3) mg/dL Lactate Dehydrogenase (120-246) U/L C-Reactive Protein (0.0-0.8) mg/dL Total Protein (6.2-8.2) g/dL Albumin (3.80-4.90) g/dL 08/20/20 08/20/20 08/20/20 Range/Units 07:26 07:26 07:26 WBC 20.7 H (3.8-10.6) k/uL Neutrophils # 18.4 H (1.3-7.7) k/uL Lymphocytes # 0.5 L (1.0-4.8) k/uL Monocytes # 1.3 H (0-1.0) k/uL D-Dimer 13.05 H (<0.60) mg/L FEU Anion Gap 13.70 H (4.00-12.00) mmol/L BUN/Creatinine Ratio 27.00 H (12.00-20.00) Ratio Glucose 215 H (70-110) mg/dL POC Glucose (mg/dL) (75-99) mg/dL Calcium 8.5 L (8.7-10.3) mg/dL Lactate Dehydrogenase 596 H (120-246) U/L C-Reactive Protein 7.6 H (0.0-0.8) mg/dL Total Protein 5.7 L (6.2-8.2) g/dL Albumin 3.60 L (3.80-4.90) g/dL 08/20/20 Range/Units 11:06 WBC (3.8-10.6) k/uL Neutrophils # (1.3-7.7) k/uL Lymphocytes # (1.0-4.8) k/uL Monocytes # (0-1.0) k/uL D-Dimer (<0.60) mg/L FEU Anion Gap (4.00-12.00) mmol/L BUN/Creatinine Ratio (12.00-20.00) Ratio Glucose (70-110) mg/dL POC Glucose (mg/dL) 217 H (75-99) mg/dL Calcium (8.7-10.3) mg/dL Lactate Dehydrogenase (120-246) U/L C-Reactive Protein (0.0-0.8) mg/dL Total Protein (6.2-8.2) g/dL Albumin (3.80-4.90) g/dL Microbiology - Last 24 Hours (Table) 08/14/20 20:28 Blood Culture - Preliminary Blood No Growth after 120 hours Assessment and Plan Assessment: -Covid 19 infection/pneumonia:continue with Decadron continue with respiratory support, Remdesivir. infectious disease following. Patient currently remains on high flow oxygen via nasal cannula at 15 L with saturations of 90%. Nonrebreather added -Right side pneumothorax along with pneumomediastinum as noted on chest x-ray -acute hypoxic respiratory failure secondary to Covid 19 -Type 2 diabetes mellitus uncontrolled, to continue with oral antidiabetic along with long-acting and sliding scale at this time -mild hypovolemic hyponatremia, improved -Hypertension history, to avoid any hypotension related to sepsis will hold off on antihypertensive medications and monitor vital signs closely -DVT prophylaxis with Lovenox -GI prophylaxis: Pepcid Plan: Continue current medications and continue to monitor closely. maintained on oral antibiotics and will continue at this time along with dexamethasone, Remdesivir, and zinc supplements. Will continue to monitor vital signs and labs closely as blood sugars continue to be elevated most likely due to dexamethasone. Increased long-acting insulin and will continue to monitor closely. Pneumothorax noted on the right side in chest x-ray and patient will be receiving a chest tube with pulmonary. Discussed with the patient about increasing activity as tolerated and possibly weaning off some oxygen as he remains on high flow at 15 L at this time. Will continue to monitor closely. Further recommendations to follow.
[2020-08-20] MEDS ORDERED: LIDOCAINE 1% INJ 10MG/ML (20 ML MDV) ONE (16:16)
[2020-08-20] MEDS ORDERED: HYDROmorphone 2 MG/ML 1 ML SYRINGE IVP STA (16:41)
[2020-08-20 17:25] LABS: Glucose,Whole Blood 244 mg/dL (75-99)
--- NOTE | 2020-08-20 17:26 | P.PCN ---
Date of Procedure: 08/20/20 Preoperative Diagnosis: Right pneumothorax Postoperative Diagnosis: Right pneumothorax,: covid 19 pneumonia Procedure(s) Performed: Right tube thoracostomy Anesthesia: local Surgeon: Jean-Pierre López Estimated Blood Loss (ml): 2 Condition: critical Disposition: floor Indications for Procedure: Progressively enlarging right pneumothorax with mediastinal emphysema and subcutaneous emphysema Operative Findings: As below Description of Procedure: Patient prepared and draped in a usual fashion area thoroughly cleaned on lateral chest wall around mid axillary area at the level of nipple, the area was draped, 1-1/2 inch incision horizontal was placed followed by blunt dissection into subcostal area intercostal muscles were dissected 1above the incision pleural cavity accessed followed by confirmation of pneumothorax with air drawn into the needle 24-gauge chest tube placed trocar is withdrawn aim towards apex, tube was secured connected with 20 cm water suction immediately air bubbles and evacuation noted makes with pleural fluid estimated blood loss 1-2 mL, post procedure chest x-ray reviewed stable position of chest tube, chest tube secured with #2 silk dry dressing applied connected with pleural VAC
--- NOTE | 2020-08-20 17:56 | XR ---
EXAMINATION TYPE: XR chest 1V portable DATE OF EXAM: 08/20/2020 COMPARISON: Today HISTORY: Chest tube TECHNIQUE: Single view FINDINGS: There is a right-sided chest tube over the right midlung field. There is small right apical pneumothorax less than 5%. There is soft tissue air on the right chest wall extending into the neck. There is evidence of pneumomediastinum and pneumopericardium. Trachea is midline. IMPRESSION: There is improvement in the right side pneumothorax compared to exam this morning. There appears to be some pneumomediastinum and pneumopericardium that is the same or increased compared to exam this morning. Bilateral lower lobe pulmonary infiltrates and atelectasis slightly worse in the l eft lower lobe compared to last exam..
[2020-08-20 18:34] LABS: Glucose,Whole Blood 260 mg/dL (75-99)
[2020-08-20 20:53] LABS: Glucose,Whole Blood 211 mg/dL (75-99)
[2020-08-20] MEDS: ASPIRIN 81 MG PO SCH (21:02)
[2020-08-20] MEDS: INSULIN DETEMIR (LEVEMIR) 100 UNIT/ML SYR SQ SCH (21:11)
--- NOTE | 2020-08-20 22:16 | PN ---
PROGRESS NOTE DATE OF SERVICE: 08/20/2020 REASON FOR FOLLOWUP: Acute COVID-19 pneumonia. INTERVAL HISTORY: The patient was seen on rounds this afternoon. The patient has been afebrile. Chest x- ray this morning did show evidence of pneumothorax. Interventional Radiology was consulted and subsequently the patient had chest tube placement by Pulmonary. The patient has been transferred to the ICU. The patient denies having significant chest pain. Still complaining of shortness of breath. No nausea, vomiting, abdominal pain or diarrhea. PHYSICAL EXAMINATION: Blood pressure 144/80 with a pulse of 90, temperature 98.1. He is 88% on 100% non- rebreather. General description is a middle-aged male lying in bed in no distress. RESPIRATORY SYSTEM: Unlabored breathing with decreased breath sounds at the base. No wheeze. HEART: S1, S2. Regular rate and rhythm. ABDOMEN: Soft. No tenderness. LABS: Hemoglobin 16.1, white count of 20.7. D-dimer is 13.5. BUN of 27, creatinine 1.0. DIAGNOSTIC IMPRESSION AND PLAN: Patient with acute COVID-19 pneumonia, now with a complicated factor of pneumothorax, status post chest tube placement. Patient is covered with Lovenox, remdesivir and dexamethasone. Overall prognosis remains guarded. Continue with supportive care. MMODL / IJN: [id number] /
[2020-08-21 06:57] LABS: Glucose,Whole Blood 213 mg/dL (75-99)
[2020-08-21] MEDS: INSULIN ASPART (NovoLOG) 100 UNIT/ML VIAL SQ SCH ×4 (07:00→20:25)
[2020-08-21] MEDS: metFORMIN 500 MG TAB PO SCH ×2 (07:00→17:09)
[2020-08-21 07:06] LABS: Basophils # (A) 0.3 k/uL (0-0.2); Basophils % (A) 2 %; Eosinophils # (A) 0.1 k/uL (0-0.7); Eosinophils % (A) 1 %; HGB 16.5 gm/dL (13.0-17.5); Lymphocytes # (A) 0.2 k/uL (1.0-4.8); Lymphocytes % (A) 1 %; MCH 29.2 pg (25.0-35.0); MCHC 34.3 g/dL (31.0-37.0); MCV 85.2 fL (80.0-100.0); Mean Platelet Volume 7.9; Monocytes # (A) 1.2 k/uL (0-1.0); Monocytes % (A) 6 %; Neutrophils % (A) 89 %; Platelet Count 180 k/uL (150-450); RBC 5.63 m/uL (4.30-5.90); RDW 13.6 % (11.5-15.5); WBC 20.2 k/uL (3.8-10.6)
[2020-08-21 07:21] LABS: ALT 18 U/L (4-49); AST 29 U/L (17-59); African American GFR (CKD) >90 (>60 ml/min/1.73 sqM); Alkaline Phosphatase 83 U/L (38-126); Anion Gap 9 mmol/L; Blood Urea Nitrogen 23 mg/dL (9-20); Calcium 8.2 mg/dL (8.4-10.2); Carbon Dioxide 26 mmol/L (22-30); Chloride 106 mmol/L (98-107); Glucose 191 mg/dL (74-99); Non-African American GFR(CKD) >90 (>60 ml/min/1.73 sqM); Potassium 4.6 mmol/L (3.5-5.1); Sodium 141 mmol/L (137-145); Total Bilirubin 1.1 mg/dL (0.2-1.3)
--- NOTE | 2020-08-21 07:33 | XR ---
EXAMINATION TYPE: XR chest 1V portable DATE OF EXAM: 08/21/2020 COMPARISON: 08/20/2020 INDICATION: Tube placement TECHNIQUE: Single frontal view of the chest is obtained. FINDINGS: The heart size is normal. The pulmonary vasculature is maybe prominent. This is somewhat difficult to confirm. There is diffuse increased lung markings greater on the left. There is a right-sided pneumothorax present. Appears stable in size. Right-sided chest tube directed towards the level of the hilum is again evident. Some pneumomediastinum may be present and stable sub cutaneous emphysema is present on the right. IMPRESSION: 1. Stable right pneumothorax with right-sided chest tube present.
[2020-08-21] MEDS: dexAMETHasone 2 MG TAB PO SCH (08:45)
[2020-08-21] MEDS: ZINC SULFATE 220 MG CAP PO SCH (08:45)
[2020-08-21] MEDS: FAMOTIDINE 20 MG TAB PO SCH ×2 (08:46→20:25)
[2020-08-21] MEDS: ENOXAPARIN 40 MG/0.4 ML SYRINGE SQ SCH (08:46)
[2020-08-21] MEDS: ASCORBIC ACID 500 MG TAB PO SCH (08:46)
[2020-08-21] MEDS: ACETAMINOPHEN TAB 500 MG TAB PO PRN (10:19)
--- NOTE | 2020-08-21 10:32 | P.PN ---
Subjective Progress Note Date: 08/21/20 Principal diagnosis: Acute hypoxic respiratory failure Covid 19 pneumonia Type 2 diabetes mellitus Hypertension hypertensive cardiovascular disease Dehydration hypovolemia and hyponatremia Depression 08/21/2020, patient seen eval examined during the rounds sitting upright in chair breathing slightly better oxygen saturation is 87-88%, patient is on high flow oxygen along with the nonrebreather mass, tachypneic tachycardic blood pressure is slightly high, patient has a right-sided chest tube is still leaking air, chest x-ray reviewed bilateral infiltrate is present with residual pneumothorax and subcu emphysema, labs from today reviewed white cell count remains elevated 20,000, renal functions stable, will attempt semi-prone with right side up, we will obtain an transfuse convalescent plasma 08/20/2020, patient seen eval examined during the rounds a labs reviewed medications reviewed this morning patient had problems with agitated anxiety and a prehension, oxygen saturation dropped down into 70s, rapid response was called and stat chest x-ray revealed presence of pneumothorax which is significant on the right side as well they may be a small mediastinal emphysema on the left side as well, patient has been made semi-prone with that oxygen saturation 100% nonrebreather mask improved to 92% patient is more calm, he remains afebrile temperature is 98.3 respiratory rate and mid to high 20s, weight is oxygen saturation 94%, chest x-ray finding reviewed 08/19/2020, patient seen eval examined during the rounds labs reviewed medications reviewed care plan discussed, patient is sitting upright on the bed on 100% nonrebreather mask, saturation remains marginal about 88%, remains afebrile, slightly anxious, advised based he hasn't to be on prone position as much as possible, labs reviewed white cell count is 17,000, patient remains on Remdesivir, Decadron, Lovenox August 18 2020, patient seen eval examined during the rounds is still on 5 L high flow oxygen, denies any chest pain breathing difficulties present, denies any cough or sputum production labs chest x-ray reviewed This is a 59-year-old male who has history of diabetes hypertension hypertensive cardiovascular disease and not feeling well for the last 5-6 days with cough and increased shortness of breath started with a sore throat, patient admitted into the hospital was spiking fever up to 101, oxygen saturation 90%, patient already has been started on REM doesn't wear and Decadron, his initial admit x-ray cystoscopy right midlung field and left lower lid feeding infiltrate patient gradually got worse initially has been on room air oxygen requirement keep on going up to 3 L and subsequently on 5 L high flow oxygen with that oxygen saturation is 93%, critical care time spent 35 minutes Objective - Vital Signs Vital signs: Vital Signs Temp 98.1 F 08/21/20 08:00 Pulse 106 H 08/21/20 10:00 Resp 30 H 08/21/20 10:00 BP 125/75 08/21/20 10:00 Pulse Ox 89 L 08/21/20 10:00 Intake & Output 08/20/20 08/21/20 08/21/20 18:59 06:59 18:59 Intake Total 500 160 Output Total 730 Balance -230 160 Weight 117.934 kg 115 kg Intake: IV 300 100 ns 300 100 Oral 200 60 Output: Chest Tube Drainage 30 Chest Tube Right 30 Urine 700 Other: Voiding Method Urinal # Voids 1 - Exam - Constitutional General appearance: cooperative, disheveled, mild distress - EENT Eyes: EOMI, PERRLA Ears: bilateral: normal - Neck Neck: normal ROM Carotids: bilateral: upstroke normal Thyroid: bilateral: normal size - Respiratory Respiratory: bilateral: diminished - Cardiovascular Rhythm: regular Heart sounds: normal: S1, S2 - Gastrointestinal General gastrointestinal: normal bowel sounds - Neurologic Neurologic: CNII-XII intact - Musculoskeletal Musculoskeletal: gait normal, generalized weakness, strength equal bilaterally - Psychiatric Psychiatric: A&O x's 3, appropriate affect, intact judgment & insight - Labs CBC & Chem 7: 08/21/20 06:55 08/21/20 06:55 Labs: Abnormal Lab Results - Last 24 Hours (Table) 08/20/20 08/20/20 08/20/20 Range/Units 07:26 11:06 17:23 WBC (3.8-10.6) k/uL Neutrophils # (1.3-7.7) k/uL Lymphocytes # (1.0-4.8) k/uL Monocytes # (0-1.0) k/uL Basophils # (0-0.2) k/uL Anion Gap 13.70 H (4.00-12.00) mmol/L BUN (9-20) mg/dL BUN/Creatinine Ratio 27.00 H (12.00-20.00) Ratio Glucose 215 H (70-110) mg/dL POC Glucose (mg/dL) 217 H 244 H (75-99) mg/dL Calcium 8.5 L (8.7-10.3) mg/dL Lactate Dehydrogenase 596 H (120-246) U/L C-Reactive Protein 7.6 H (0.0-0.8) mg/dL Total Protein 5.7 L (6.2-8.2) g/dL Albumin 3.60 L (3.80-4.90) g/dL 08/20/20 08/20/20 08/21/20 Range/Units 18:32 20:51 06:55 WBC 20.2 H (3.8-10.6) k/uL Neutrophils # 18.0 H (1.3-7.7) k/uL Lymphocytes # 0.2 L (1.0-4.8) k/uL Monocytes # 1.2 H (0-1.0) k/uL Basophils # 0.3 H (0-0.2) k/uL Anion Gap (4.00-12.00) mmol/L BUN (9-20) mg/dL BUN/Creatinine Ratio (12.00-20.00) Ratio Glucose (70-110) mg/dL POC Glucose (mg/dL) 260 H 211 H (75-99) mg/dL Calcium (8.7-10.3) mg/dL Lactate Dehydrogenase (120-246) U/L C-Reactive Protein (0.0-0.8) mg/dL Total Protein (6.2-8.2) g/dL Albumin (3.80-4.90) g/dL 08/21/20 08/21/20 Range/Units 06:55 06:56 WBC (3.8-10.6) k/uL Neutrophils # (1.3-7.7) k/uL Lymphocytes # (1.0-4.8) k/uL Monocytes # (0-1.0) k/uL Basophils # (0-0.2) k/uL Anion Gap (4.00-12.00) mmol/L BUN 23 H (9-20) mg/dL BUN/Creatinine Ratio (12.00-20.00) Ratio Glucose 191 H (70-110) mg/dL POC Glucose (mg/dL) 213 H (75-99) mg/dL Calcium 8.2 L (8.7-10.3) mg/dL Lactate Dehydrogenase (120-246) U/L C-Reactive Protein (0.0-0.8) mg/dL Total Protein 6.0 L (6.2-8.2) g/dL Albumin 3.0 L (3.80-4.90) g/dL Microbiology - Last 24 Hours (Table) 08/14/20 20:28 Blood Culture - Final Blood No Growth after 144 hours Assessment and Plan Assessment: Significant large right-sided pneumothorax status post right chest tube air leak is still present Pneumomediastinum Acute hypoxic respiratory failure Covid 19 pneumonia with cytokine nita Type 2 diabetes mellitus Hypertension hypertensive cardiovascular disease Dehydration hypovolemia and hyponatremia Depression Plan: Status post right-sided chest tube Resume antihypertensive agent from home Continue to follow sugars closely Chest tube to 20 cm water suction For now oxygen saturation is stable patient is an semi-prone with the right- sided up Convalescent plasma Agree with supplemental oxygen and nonrebreather mask may need BiPAP as needed O follow closely Prone positioning as much as 16 hour a day either continuous or intermittent Deep breathing exercise incentive spirometry Increase activity as tolerated Continue Decadron and IV Remdesivir for 10 and 5 days respectively Further plan of care as per clinical response of the patient
[2020-08-21 12:06] LABS: Glucose,Whole Blood 221 mg/dL (75-99)
--- NOTE | 2020-08-21 12:21 | P.PN ---
Subjective Progress Note Date: 08/21/20 53-year-old male is admitted for Covid19 pneumonitis, sepsis. Patient went into hypoxemia last night ended up on 3 L of oxygen.overall feeling little bit better. 08/17/2020 Patient's is pretty status is worse and patient is not doing well in spite of high flow nasal cannula oxygen along with 100% many mask. Patient is being started on Remdesivir. Patient is still complaining of shortness of breath Constitutional: Denied any fatigue denied any fever. Cardio vascular: denied any chest pain, palpitations Gastrointestinal denied any nausea vomiting Pulmonary: As mentioned above Neurologic denied any new focal deficits All inpatient medications were reviewed and appropriate changes in these medic ations as dictated in the interval history and assessment and plan. 08/18/2020 Patient is seen and evaluated in follow-up and continues to be maintained on high flow oxygen via nasal cannula. Infectious disease is following. Patient continues to have shortness of breath especially with exertion. Discussed with the patient about increasing activity and getting up to the commode and chair. Patient states he feels slightly better today although continues to be extremely dyspneic. Review of systems: Constitutional: No reports of fatigue, fever, or chills Cardiovascular: No reports of chest pain or palpitations Respiratory: Reports shortness of breath with occasional cough GI: No reports of nausea, vomiting, or diarrhea : No reports of dysuria or retention Neurovascular: No reports of weakness or numbness All medications have been reviewed 08/19/2020 Patient is seen and evaluated in follow-up with no real improvement of respiratory status. Patient continues to sat in the low 80s and drops quickly without oxygen. He she is currently maintained on 15 L high flow oxygen along w ith a nonrebreather over that and was able to obtain 90% oxygen saturation. Patient is currently sitting up at the bedside asking when he can go home. Discussed with the patient at length about respiratory status and his inability to come off oxygen at this time. White blood count elevated at 17.9 from yesterday. BMP within normal limits although blood glucose levels continue to be elevated. Patient is maintained on sliding scale along with long-acting and oral antidiabetic medications. Will continue to monitor as the dexamethasone may be a component of elevated glucose levels. Discussed with the patient about incentive spirometer and instructed to use at least 10 times every hour while awake. Patient currently denies any chest pain or palpitations. Patient is afebrile. No reports of nausea or vomiting patient states he does not have much of an appetite although is tolerating diet. 08/20/2020 Patient is seen in follow-up and continues to be on a nonrebreather and 15 L high flow oxygen and was found to be extremely anxious and hypoxic with saturations in the 70s earlier this morning Repeat chest x-ray done today shows right side pneumothorax along with pneumo mediastinum, subcutaneous emphysema. Pulmonary Dr. López is following and will be placing a chest tube this afternoon. Lovenox dose will be adjusted once chest tube is placed. White blood count elevated at 20.7. D-dimer was found to be 13.05. Review of systems: Constitutional: Anxious, no reports of fever, or chills Cardiovascular: No reports of chest pain or palpitations Respiratory: reports worsening shortness of breath and difficulty breathing GI: No reports of nausea, vomiting, or diarrhea : No reports of dysuria or retention Neurovascular: No reports of weakness or numbness All medications have been reviewed 08/21/2020 Patient is seen and evaluated and follow-up currently remains in the ICU as patient underwent right chest tube placement with Dr. López yesterday due to right pneumothorax with pneumomediastinum and subcutaneous emphysema. Patient is currently sitting up in the chair and on a nonrebreather and high flow oxygen at flow rate of 60% with an FiO2 of 85%. Patient is currently at 89% oxygen saturation. Patient is also receiving a unit of fresh frozen plasma and is maintained on Lovenox. Blood sugars continue to be elevated and will continue to monitor with long-acting along with sliding scale. White Blood count 20.2. Chest x-ray this morning shows a stable right pneumothorax with right-sided chest tube noted and stable subcutaneous emphysema. Patient instructed to continue with incentive spirometer and semi-prone position with the right side up. Patient is somewhat anxious and agitated with remaining hospitalized. No reports of chest pain or palpitations. Denies any nausea or vomiting and is tolerating diet. Patient is currently afebrile. Objective - Vital Signs Vital signs: Vital Signs Temp 98.1 F 08/21/20 08:00 Pulse 106 H 08/21/20 10:00 Resp 30 H 08/21/20 10:00 BP 125/75 08/21/20 10:00 Pulse Ox 89 L 08/21/20 10:00 Intake & Output 08/20/20 08/21/20 08/21/20 18:59 06:59 18:59 Intake Total 500 160 Output Total 730 Balance -230 160 Weight 117.934 kg 115 kg Intake: IV 300 100 ns 300 100 Oral 200 60 Output: Chest Tube Drainage 30 Chest Tube Right 30 Urine 700 Other: Voiding Method Urinal # Voids 1 - Exam GENERAL: The patient is alert and oriented x3, patient continues to be in mild respiratory distress. Anxious. Well developed, well nourished. HEENT: Pupils are round and equally reacting to light. EOMI. No scleral icterus. No conjunctival pallor. Normocephalic, atraumatic. No pharyngeal erythema. No thyromegaly. CARDIOVASCULAR: S1 and S2 present. No murmurs, rubs, or gallops. PULMONARY: Bilateral scattered rhonchi, no wheezing noted diminished air entry bilaterally worse on the right, tachypneic, nasal cannula and nonrebreather noted upon exam, chest tube noted on the right side with some serous drainage noted approximately 20 mL today ABDOMEN: Soft, nontender, nondistended, normoactive bowel sounds. No palpable organomegaly. MUSCULOSKELETAL: No joint swelling or deformity. EXTREMITIES: No cyanosis, clubbing, or pedal edema. NEUROLOGICAL: Gross neurological examination did not reveal any focal deficits. SKIN: No rashes. Note: Because of COVID 19 isolation, some of the history and physical exam findings are indirect and obtained from nursing staff, and other physician examinations to avoid unnecessary contact with the patient. - Labs CBC & Chem 7: 08/21/20 06:55 08/21/20 06:55 Labs: Abnormal Lab Results - Last 24 Hours (Table) 08/20/20 08/20/20 08/20/20 Range/Units 07:26 17:23 18:32 WBC (3.8-10.6) k/uL Neutrophils # (1.3-7.7) k/uL Lymphocytes # (1.0-4.8) k/uL Monocytes # (0-1.0) k/uL Basophils # (0-0.2) k/uL BUN (9-20) mg/dL Glucose (74-99) mg/dL POC Glucose (mg/dL) 244 H 260 H (75-99) mg/dL Calcium (8.4-10.2) mg/dL Lactate Dehydrogenase 596 H (120-246) U/L Total Protein (6.3-8.2) g/dL Albumin (3.5-5.0) g/dL 08/20/20 08/21/20 08/21/20 Range/Units 20:51 06:55 06:55 WBC 20.2 H (3.8-10.6) k/uL Neutrophils # 18.0 H (1.3-7.7) k/uL Lymphocytes # 0.2 L (1.0-4.8) k/uL Monocytes # 1.2 H (0-1.0) k/uL Basophils # 0.3 H (0-0.2) k/uL BUN 23 H (9-20) mg/dL Glucose 191 H (74-99) mg/dL POC Glucose (mg/dL) 211 H (75-99) mg/dL Calcium 8.2 L (8.4-10.2) mg/dL Lactate Dehydrogenase (120-246) U/L Total Protein 6.0 L (6.3-8.2) g/dL Albumin 3.0 L (3.5-5.0) g/dL 08/21/20 Range/Units 06:56 WBC (3.8-10.6) k/uL Neutrophils # (1.3-7.7) k/uL Lymphocytes # (1.0-4.8) k/uL Monocytes # (0-1.0) k/uL Basophils # (0-0.2) k/uL BUN (9-20) mg/dL Glucose (74-99) mg/dL POC Glucose (mg/dL) 213 H (75-99) mg/dL Calcium (8.4-10.2) mg/dL Lactate Dehydrogenase (120-246) U/L Total Protein (6.3-8.2) g/dL Albumin (3.5-5.0) g/dL Microbiology - Last 24 Hours (Table) 08/14/20 20:28 Blood Culture - Final Blood No Growth after 144 hours Assessment and Plan Assessment: -Covid 19 infection/pneumonia:continue with Decadron continue with respiratory support, Remdesivir. infectious disease following. Patient currently remains on high flow oxygen via nasal cannula and Nonrebreather -Right side pneumothorax along with pneumomediastinum as noted on chest x-ray, status post right side chest tube placement with pulmonary yesterday -acute hypoxic respiratory failure secondary to Covid 19 -Type 2 diabetes mellitus uncontrolled, to continue with oral antidiabetic along with long-acting and sliding scale at this time -mild hypovolemic hyponatremia, improved -Hypertension: Home medications have been resumed as patient continues to be hypertensive -DVT prophylaxis with Lovenox -GI prophylaxis: Pepcid Plan: Continue current medications and continue to monitor closely. Patient currently in the ICU for close monitoring status post chest tube placement yesterday. maintained on oral antibiotics and will continue at this time along with dexamethasone, Remdesivir, and zinc supplements. Will continue to monitor vital signs and labs closely as blood sugars continue to be elevated. Pneumothorax noted on the right side in chest x-ray and patient received a chest tube with pulmonary. Increase activity as tolerated. Will continue to monitor closely. Further recommendations to follow.
[2020-08-21] MEDS: REMDESIVIR 100 MG in SODIUM CHLORIDE 0.9% 250 ML IVPB SCH (12:25)
[2020-08-21] MEDS: LISINOPRIL-HCTZ 10-12.5 MG 1 EACH TAB PO SCH (12:26)
[2020-08-21 16:36] LABS: Glucose,Whole Blood 314 mg/dL (75-99)
[2020-08-21 19:56] LABS: Glucose,Whole Blood 267 mg/dL (75-99)
[2020-08-21] MEDS: ASPIRIN 81 MG PO SCH (20:25)
[2020-08-21] MEDS: INSULIN DETEMIR (LEVEMIR) 100 UNIT/ML SYR SQ SCH (20:25)
--- NOTE | 2020-08-21 22:59 | PN ---
PROGRESS NOTE DATE OF SERVICE: 08/21/2020 REASON FOR FOLLOWUP: Acute COVID-19 pneumonia. INTERVAL HISTORY: The patient has been transferred down to the ICU. The patient did have chest tube placement yesterday. The patient mentioned he is breathing slightly comfortably today. Pain at the site of the chest tube insertion, but no abnormal chest pain. Minimal cough. No nausea, no vomiting. No abdominal pain or diarrhea. PHYSICAL EXAMINATION: Blood pressure 122/79 with a pulse of 84, temperature 99.1. He is 96% on BiPAP. General description is a middle-aged male lying in bed in no distress. RESPIRATORY SYSTEM: Unlabored breathing with decreased breath sounds at the base. No wheeze. HEART: S1, S2. Regular rate and rhythm. ABDOMEN: Soft. No tenderness. LABS: Hemoglobin 16.5, white count 20.2 with a BUN of , creatinine 0.74. Blood culture has been negative. Chest x-ray: Stable right pneumothorax with a right-sided chest tube. DIAGNOSTIC IMPRESSION AND PLAN: Patient with acute COVID-19 pneumonia complicated by right-sided pneumothorax, status post chest tube placement. This patient completed his 5-day course of remdesivir, currently on dexamethasone, Lovenox, zinc sulfate; to continue. He did have elevated white count. Will monitor closely. Repeat chest x-ray tomorrow. Continue with supportive care. MMODL / IJN: [id number] /
[2020-08-22 06:03] LABS: Basophils # (A) 0.1 k/uL (0-0.2); Basophils % (A) 1 %; Eosinophils # (A) 0.1 k/uL (0-0.7); Eosinophils % (A) 0 %; HCT 48.2 % (39.0-53.0); HGB 16.5 gm/dL (13.0-17.5); Lymphocytes # (A) 0.3 k/uL (1.0-4.8); Lymphocytes % (A) 1 %; MCH 29.1 pg (25.0-35.0); MCHC 34.2 g/dL (31.0-37.0); MCV 85.1 fL (80.0-100.0); Mean Platelet Volume 8.6; Monocytes # (A) 1.2 k/uL (0-1.0); Monocytes % (A) 5 %; Neutrophils # (A) 22.9 k/uL (1.3-7.7); Neutrophils % (A) 92 %; Platelet Count 137 k/uL (150-450); RBC 5.66 m/uL (4.30-5.90); RDW 13.6 % (11.5-15.5); WBC 24.8 k/uL (3.8-10.6)
[2020-08-22 06:50] LABS: C Reactive Protein 197.9 mg/L (<10.0)
[2020-08-22 06:53] LABS: Glucose,Whole Blood 192 mg/dL (75-99)
[2020-08-22] MEDS: INSULIN ASPART (NovoLOG) 100 UNIT/ML VIAL SQ SCH ×4 (06:58→21:20)
[2020-08-22 07:00] LABS: ALT 18 U/L (4-49); AST 35 U/L (17-59); African American GFR (CKD) >90 (>60 ml/min/1.73 sqM); Albumin 2.9 g/dL (3.5-5.0); Alkaline Phosphatase 103 U/L (38-126); Anion Gap 10 mmol/L; Blood Urea Nitrogen 22 mg/dL (9-20); Calcium 8.2 mg/dL (8.4-10.2); Carbon Dioxide 26 mmol/L (22-30); Chloride 102 mmol/L (98-107); Glucose 198 mg/dL (74-99); LDH 1656 U/L (313-618); Non-African American GFR(CKD) >90 (>60 ml/min/1.73 sqM); Potassium 4.2 mmol/L (3.5-5.1); Sodium 138 mmol/L (137-145); Total Bilirubin 1.1 mg/dL (0.2-1.3); Total Protein 5.8 g/dL (6.3-8.2)
--- NOTE | 2020-08-22 07:45 | XR ---
EXAMINATION TYPE: XR chest 1V portable DATE OF EXAM: 08/22/2020 COMPARISON: 08/21/2020 HISTORY: SOB, Follow Up FINDINGS: There is interval placement of right-sided chest tube however pneumothorax has enlarged and chest tub e should be repositioned. Pneumothorax is estimated at 35-40%. There is evidence of subcutaneous air. There is also a new left-sided pneumothorax estimated at 10-15% Bilateral infiltrates persist. Stable appearance of the cardio-mediastinal structures at this time. Pleural effusion unchanged. IMPRESSION: 1. Enlarging right-sided pneumothorax. Chest tube should be repositioned. 2. There is a new left apical pneumothorax estimated at 10-15%. 3. Bilateral infiltrates persist. A [place] level critical message alert has been initiated for Jean-Pierre López MD~[id number] via the [employer] [facility] [employer] Critical Results System on 08/22/2020 7:42 AM. This message alert has been sent to Jean-Pierre López MD~S [id number] via the preferences provided by the clinician for the receipt of Radiology Critical Findings. [place] essage ID [id number].
--- NOTE | 2020-08-22 08:30 | P.PN ---
Subjective Progress Note Date: 08/22/20 (Critical care time 35 minutes) Principal diagnosis: Right spontaneous pneumothorax Pneumomediastinum Left spontaneous pneumothorax Acute hypoxic respiratory failure Covid 19 pneumonia Type 2 diabetes mellitus Hypertension hypertensive cardiovascular disease Dehydration hypovolemia and hyponatremia Depression 08/22/2020, patient seen eval reexamined significant desaturation was more noted, sats dropped down to 55-70% spontaneously comes right back up though currently on 93% BiPAP, Semiprone with the right side up patient cannot tolerate airvo, desaturated easily remains tachypneic tachycardic hemodynamic status however remains stable, chest x-ray findings reviewed in spite of right-sided chest tube and persistent air leak there is a persistent spontaneous pneumo thorax fairly large on the right side and small apical left sided spontaneous pneumothorax noted with pneumomediastinum and bilateral dense infiltrate at the bases, thoracic surgery has been consulted, patient may need an another chest tube on the right side versus VATS and preferably and of the small chest U was on the left side, will defer to expertise of thoracic surgery, labs reviewed medications reviewed care plan discussed at length with the staff 08/21/2020, patient seen eval examined during the rounds sitting upright in chair breathing slightly better oxygen saturation is 87-88%, patient is on high flow oxygen along with the nonrebreather mass, tachypneic tachycardic blood pressure is slightly high, patient has a right-sided chest tube is still leaking air, chest x-ray reviewed bilateral infiltrate is present with residual pneumothorax and subcu emphysema, labs from today reviewed white cell count remains elevated 20,000, renal functions stable, will attempt semi-prone with ri ght side up, we will obtain an transfuse convalescent plasma 08/20/2020, patient seen eval examined during the rounds a labs reviewed medications reviewed this morning patient had problems with agitated anxiety and a prehension, oxygen saturation dropped down into 70s, rapid response was called and stat chest x-ray revealed presence of pneumothorax which is significant on the right side as well they may be a small mediastinal emphysema on the left side as well, patient has been made semi-prone with that oxygen saturation 100% nonrebreather mask improved to 92% patient is more calm, he remains afebrile temperature is 98.3 respiratory rate and mid to high 20s, weight is oxygen saturation 94%, chest x-ray finding reviewed 08/19/2020, patient seen eval examined during the rounds labs reviewed medications reviewed care plan discussed, patient is sitting upright on the bed on 100% nonrebreather mask, saturation remains marginal about 88%, remains afebrile, slightly anxious, advised based he hasn't to be on prone position as much as possible, labs reviewed white cell count is 17,000, patient remains on Remdesivir, Decadron, Lovenox August 18 2020, patient seen eval examined during the rounds is still on 5 L high flow oxygen, denies any chest pain breathing difficulties present, denies any cough or sputum production labs chest x-ray reviewed This is a 59-year-old male who has history of diabetes hypertension hypertensive cardiovascular disease and not feeling well for the last 5-6 days with cough and increased shortness of breath started with a sore throat, patient admitted into the hospital was spiking fever up to 101, oxygen saturation 90%, patient already has been started on REM doesn't wear and Decadron, his initial admit x-ray cystoscopy right midlung field and left lower lid feeding infiltrate patient gradually got worse initially has been on room air oxygen requirement keep on going up to 3 L and subsequently on 5 L high flow oxygen with that oxygen saturation is 93%, critical care time spent 35 minutes Objective - Vital Signs Vital signs: Vital Signs Temp 98.6 F 08/22/20 04:00 Pulse 90 08/22/20 07:00 Resp 27 H 08/22/20 07:00 BP 140/69 08/22/20 07:00 Pulse Ox 94 L 08/22/20 07:00 Intake & Output 08/21/20 08/22/20 08/22/20 18:59 06:59 18:59 Intake Total 850 400 25 Output Total 1300 850 Balance -450 -450 25 Weight 105.8 kg Intake: IV 550 300 25 Remdesivir (Eua) 100 mg 250 In Sodium Chloride 0.9% 250 ml @ 250 mls/hr IVPB DAILY@1300 [facility] Rx#: [id number] ns 300 300 25 Oral 300 100 Output: Urine 1300 850 Other: Voiding Method Urinal # Bowel Movements 1 - Exam - Constitutional General appearance: cooperative, disheveled, mild distress - EENT Eyes: EOMI, PERRLA Ears: bilateral: normal - Neck Neck: normal ROM Carotids: bilateral: upstroke normal Thyroid: bilateral: normal size - Respiratory Respiratory: bilateral: diminished - Cardiovascular Rhythm: regular Heart sounds: normal: S1, S2 - Gastrointestinal General gastrointestinal: normal bowel sounds - Neurologic Neurologic: CNII-XII intact - Musculoskeletal Musculoskeletal: gait normal, generalized weakness, strength equal bilaterally - Psychiatric Psychiatric: A&O x's 3, appropriate affect, intact judgment & insight - Labs CBC & Chem 7: 08/22/20 05:37 08/22/20 05:37 Labs: Abnormal Lab Results - Last 24 Hours (Table) 08/21/20 08/21/20 08/21/20 Range/Units 12:05 16:34 19:55 WBC (3.8-10.6) k/uL Plt Count (150-450) k/uL Neutrophils # (1.3-7.7) k/uL Lymphocytes # (1.0-4.8) k/uL Monocytes # (0-1.0) k/uL D-Dimer (<0.60) mg/L FEU BUN (9-20) mg/dL Glucose (74-99) mg/dL POC Glucose (mg/dL) 221 H 314 H 267 H (75-99) mg/dL Calcium (8.4-10.2) mg/dL Lactate Dehydrogenase (313-618) U/L C-Reactive Protein (<10.0) mg/L Total Protein (6.3-8.2) g/dL Albumin (3.5-5.0) g/dL 08/22/20 08/22/20 08/22/20 Range/Units 05:37 05:37 05:37 WBC 24.8 H (3.8-10.6) k/uL Plt Count 137 L (150-450) k/uL Neutrophils # 22.9 H (1.3-7.7) k/uL Lymphocytes # 0.3 L (1.0-4.8) k/uL Monocytes # 1.2 H (0-1.0) k/uL D-Dimer 34.11 H (<0.60) mg/L FEU BUN 22 H (9-20) mg/dL Glucose 198 H (74-99) mg/dL POC Glucose (mg/dL) (75-99) mg/dL Calcium 8.2 L (8.4-10.2) mg/dL Lactate Dehydrogenase 1656 H (313-618) U/L C-Reactive Protein 197.9 H (<10.0) mg/L Total Protein 5.8 L (6.3-8.2) g/dL Albumin 2.9 L (3.5-5.0) g/dL 08/22/20 Range/Units 06:52 WBC (3.8-10.6) k/uL Plt Count (150-450) k/uL Neutrophils # (1.3-7.7) k/uL Lymphocytes # (1.0-4.8) k/uL Monocytes # (0-1.0) k/uL D-Dimer (<0.60) mg/L FEU BUN (9-20) mg/dL Glucose (74-99) mg/dL POC Glucose (mg/dL) 192 H (75-99) mg/dL Calcium (8.4-10.2) mg/dL Lactate Dehydrogenase (313-618) U/L C-Reactive Protein (<10.0) mg/L Total Protein (6.3-8.2) g/dL Albumin (3.5-5.0) g/dL Assessment and Plan Assessment: Right spontaneous pneumothorax in spite of right-sided chest tube persistent air leak and pneumothorax is present Pneumomediastinum Left spontaneous pneumothorax Acute hypoxic respiratory failure Covid 19 pneumonia Type 2 diabetes mellitus Hypertension hypertensive cardiovascular disease Dehydration hypovolemia and hyponatremia Depression Plan: Status post right-sided chest tube , a leak is present, right sided pneumothorax on today's x-ray appears larger there is a new finding of left apical pneumothorax present with persistence of pneumomediastinum, thoracic surgery has been consulted Resume antihypertensive agent from home Continue to follow sugars closely Chest tube to 20 cm water suction For now oxygen saturation is stable patient is an semi-prone with the right- sided up Convalescent plasma Agree with supplemental oxygen and nonrebreather mask may need BiPAP as needed O follow closely Prone positioning as much as 16 hour a day either continuous or intermittent Deep breathing exercise incentive spirometry Increase activity as tolerated Continue Decadron and IV Remdesivir for 10 and 5 days respectively Further plan of care as per clinical response of the patient, overall prognosis is guarded Time with Patient: Greater than 30
[2020-08-22] MEDS: LORazepam 2 MG/ML INJ IV PRN (08:33)
[2020-08-22] MEDS: ENOXAPARIN 40 MG/0.4 ML SYRINGE SQ SCH (08:33)
[2020-08-22] MEDS: ASCORBIC ACID 500 MG TAB PO SCH (10:42)
[2020-08-22] MEDS: LISINOPRIL-HCTZ 10-12.5 MG 1 EACH TAB PO SCH (10:42)
[2020-08-22] MEDS: FAMOTIDINE 20 MG TAB PO SCH ×2 (10:42→20:32)
[2020-08-22] MEDS: dexAMETHasone 2 MG TAB PO SCH (10:42)
[2020-08-22] MEDS: ZINC SULFATE 220 MG CAP PO SCH (10:42)
[2020-08-22] MEDS ORDERED: LIDOCAINE 1% INJ 10MG/ML (20 ML MDV) ONE (11:01)
[2020-08-22] MEDS ORDERED: HYDROmorphone 1 MG/ML 1 ML SYRINGE ONE (11:02)
--- NOTE | 2020-08-22 12:05 | P.PCN ---
Date of Procedure: 08/22/20 Preoperative Diagnosis: Spontaneous persistent pneumothorax on the right side/non-expanding lung, covid 19 pneumonia Postoperative Diagnosis: As above Procedure(s) Performed: Right-sided 28 cm tube thoracostomy and chest tube placement Anesthesia: local Surgeon: Jean-Pierre López Condition: critical Disposition: ICU Indications for Procedure: Persistent right-sided pneumothorax/tension pneumothorax Operative Findings: As below Description of Procedure: At fourth intercostal area thoroughly cleaned anterior axillary line 1-1/2 cm incision was done blunt dissection was performed through the intercostal fascia muscles and eventually reached the pleura, one above parietal pleura stab incision was done to thoracostomy was done trocar was removed aim towards apex anteriorly, tolerated well, tube secured with #0 silk followed by Vaseline gauze pack and dressing applied secured with 20 cm water of section extensive air bubbles noted, post chest x-ray reviewed resolution of pneumothorax on the right side with good position of both chest tube, small apical left-sided pneumothorax seen stable
--- NOTE | 2020-08-22 12:08 | XR ---
EXAMINATION TYPE: XR chest 1V confirm line [facility] DATE OF EXAM: 08/22/2020 HISTORY: Pneumothorax COMPARISON: None. TECHNIQUE: Single view of the chest is submitted. FINDINGS: Right-sided chest tube has been added with 2 right-sided chest tubes now seen. Pneumothorax is no jim yomi visible on the right. There continues to be a left-sided pneumothorax unchanged in size from prio r examination. Bilateral infiltrates persist. The heart is stable. Hilar and mediastinal structures are within normal limits. Degenerative changes are seen of the dorsal spine. IMPRESSION: 1. Right-sided chest tube has been added with 2 right-sided chest tubes now seen. Pneumothorax is no longer visible on the right. There continues to be a left-sided pneumothorax unchanged in size from prior examination. Bilateral infiltrates persist.
[2020-08-22 12:15] LABS: Glucose,Whole Blood 329 mg/dL (75-99)
[2020-08-22] MEDS: SODIUM CHLORIDE 0.9% 1,000 ML IV SCH ×2 (12:47→21:21)
[2020-08-22] MEDS: DEXAMETHASONE SOD PHOSPHATE 10 MG/ML 1 ML VIAL IV SCH (12:47)
--- NOTE | 2020-08-22 13:13 | P.PN ---
Subjective 53-year-old male is admitted for Covid19 pneumonitis, sepsis. Patient went into hypoxemia last night ended up on 3 L of oxygen.overall feeling little bit better. 08/17/2020 Patient's is pretty status is worse and patient is not doing well in spite of high flow nasal cannula oxygen along with 100% many mask. Patient is being started on Remdesivir. Patient is still complaining of shortness of breath Constitutional: Denied any fatigue denied any fever. Cardio vascular: denied any chest pain, palpitations Gastrointestinal denied any nausea vomiting Pulmonary: As mentioned above Neurologic denied any new focal deficits All inpatient medications were reviewed and appropriate changes in these medications as dictated in the interval history and assessment and plan. 08/18/2020 Patient is seen and evaluated in follow-up and continues to be maintained on high flow oxygen via nasal cannula. Infectious disease is following. Patient continues to have shortness of breath especially with exertion. Discussed with the patient about increasing activity and getting up to the commode and chair. Patient states he feels slightly better today although continues to be extremely dyspneic. Review of systems: Constitutional: No reports of fatigue, fever, or chills Cardiovascular: No reports of chest pain or palpitations Respiratory: Reports shortness of breath with occasional cough GI: No reports of nausea, vomiting, or diarrhea : No reports of dysuria or retention Neurovascular: No reports of weakness or numbness All medications have been reviewed 08/19/2020 Patient is seen and evaluated in follow-up with no real improvement of r espiratory status. Patient continues to sat in the low 80s and drops quickly without oxygen. He she is currently maintained on 15 L high flow oxygen along with a nonrebreather over that and was able to obtain 90% oxygen saturation. Patient is currently sitting up at the bedside asking when he can go home. Discussed with the patient at length about respiratory status and his inability to come off oxygen at this time. White blood count elevated at 17.9 from yesterday. BMP within normal limits although blood glucose levels continue to be elevated. Patient is maintained on sliding scale along with long-acting and oral antidiabetic medications. Will continue to monitor as the dexamethasone may be a component of elevated glucose levels. Discussed with the patient about incentive spirometer and instructed to use at least 10 times every hour while awake. Patient currently denies any chest pain or palpitations. Patient is afebrile. No reports of nausea or vomiting patient states he does not have much of an appetite although is tolerating diet. 08/20/2020 Patient is seen in follow-up and continues to be on a nonrebreather and 15 L high flow oxygen and was found to be extremely anxious and hypoxic with saturations in the 70s earlier this morning Repeat chest x-ray done today shows right side pneumothorax along with pneumo mediastinum, subcutaneous emphysema. Pulmonary Dr. López is following and will be placing a chest tube this afternoon. Lovenox dose will be adjusted once chest tube is placed. White blood count elevated at 20.7. D-dimer was found to be 13.05. 08/22/2020 Patient has 2 chest tubes on the right side. Patient remains on airvo, there was a persistent leak in the previous chest tube. Review of systems: Unable to obtain due to his clinical condition did All inpatient medications were reviewed and appropriate changes in these medications as dictated in the interval history and assessment and plan. Objective - Vital Signs Vital signs: Vital Signs Temp 98.1 F 08/22/20 12:00 Pulse 92 08/22/20 13:00 Resp 33 H 08/22/20 13:00 BP 132/75 08/22/20 13:00 Pulse Ox 91 L 08/22/20 13:00 Intake & Output 08/21/20 08/22/20 08/22/20 18:59 06:59 18:59 Intake Total 850 400 625 Output Total 1300 850 300 Balance -450 -450 325 Weight 105.8 kg Intake: IV 550 300 625 Remdesivir (Eua) 100 mg 250 In Sodium Chloride 0.9% 250 ml @ 250 mls/hr IVPB DAILY@1300 [facility] Rx#: [id number] Sodium Chloride 0.9% 1, 600 000 ml @ 100 mls/hr IV . Q10H [facility] Rx#:[id number] ns 300 300 25 Oral 300 100 Output: Urine 1300 850 300 Other: Voiding Method Urinal # Bowel Movements 1 - Exam GENERAL: The patient is alert and oriented x3, patient continues to be in mild respiratory distress. Anxious. Well developed, well nourished. HEENT: Pupils are round and equally reacting to light. EOMI. No scleral icterus. No conjunctival pallor. Normocephalic, atraumatic. No pharyngeal erythema. No thyromegaly. CARDIOVASCULAR: S1 and S2 present. No murmurs, rubs, or gallops. PULMONARY: Bilateral scattered rhonchi, no wheezing noted diminished air entry bilaterally worse on the right, tachypneic, nasal cannula and nonrebreather noted upon exam, 2 chest tubes noted on the right side w ABDOMEN: Soft, nontender, nondistended, normoactive bowel sounds. No palpable organomegaly. MUSCULOSKELETAL: No joint swelling or deformity. EXTREMITIES: No cyanosis, clubbing, or pedal edema. NEUROLOGICAL: Gross neurological examination did not reveal any focal deficits. SKIN: No rashes. Note: Because of COVID 19 isolation, some of the history and physical exam findings are indirect and obtained from nursing staff, and other physician examinations to avoid unnecessary contact with the patient. - Labs CBC & Chem 7: 08/22/20 05:37 08/22/20 05:37 Labs: Abnormal Lab Results - Last 24 Hours (Table) 08/21/20 08/21/20 08/22/20 Range/Units 16:34 19:55 05:37 WBC (3.8-10.6) k/uL Plt Count (150-450) k/uL Neutrophils # (1.3-7.7) k/uL Lymphocytes # (1.0-4.8) k/uL Monocytes # (0-1.0) k/uL D-Dimer (<0.60) mg/L FEU BUN (9-20) mg/dL Glucose (74-99) mg/dL POC Glucose (mg/dL) 314 H 267 H (75-99) mg/dL Calcium (8.4-10.2) mg/dL Lactate Dehydrogenase (313-618) U/L C-Reactive Protein (<10.0) mg/L Total Protein (6.3-8.2) g/dL Albumin (3.5-5.0) g/dL Procalcitonin 0.25 H (0.02-0.09) ng/mL 08/22/20 08/22/20 08/22/20 Range/Units 05:37 05:37 05:37 WBC 24.8 H (3.8-10.6) k/uL Plt Count 137 L (150-450) k/uL Neutrophils # 22.9 H (1.3-7.7) k/uL Lymphocytes # 0.3 L (1.0-4.8) k/uL Monocytes # 1.2 H (0-1.0) k/uL D-Dimer 34.11 H (<0.60) mg/L FEU BUN 22 H (9-20) mg/dL Glucose 198 H (74-99) mg/dL POC Glucose (mg/dL) (75-99) mg/dL Calcium 8.2 L (8.4-10.2) mg/dL Lactate Dehydrogenase 1656 H (313-618) U/L C-Reactive Protein 197.9 H (<10.0) mg/L Total Protein 5.8 L (6.3-8.2) g/dL Albumin 2.9 L (3.5-5.0) g/dL Procalcitonin (0.02-0.09) ng/mL 08/22/20 08/22/20 Range/Units 06:52 12:13 WBC (3.8-10.6) k/uL Plt Count (150-450) k/uL Neutrophils # (1.3-7.7) k/uL Lymphocytes # (1.0-4.8) k/uL Monocytes # (0-1.0) k/uL D-Dimer (<0.60) mg/L FEU BUN (9-20) mg/dL Glucose (74-99) mg/dL POC Glucose (mg/dL) 192 H 329 H (75-99) mg/dL Calcium (8.4-10.2) mg/dL Lactate Dehydrogenase (313-618) U/L C-Reactive Protein (<10.0) mg/L Total Protein (6.3-8.2) g/dL Albumin (3.5-5.0) g/dL Procalcitonin (0.02-0.09) ng/mL Assessment and Plan Plan: -Covid 19 infection/pneumonia:continue with Decadron continue with respiratory support, Remdesivir. infectious disease following. Patient currently remains on high flow oxygen via nasal cannula and Nonrebreather -Right side pneumothorax along with pneumomediastinum as noted on chest x-ray, status post right side chest tube placement with pulmonary yesterday -acute hypoxic respiratory failure secondary to Covid 19 -Type 2 diabetes mellitus uncontrolled, to continue with oral antidiabetic along with long-acting and sliding scale at this time -mild hypovolemic hyponatremia, improved -Hypertension: Home medications have been resumed as patient continues to be hypertensive -DVT prophylaxis with Lovenox -GI prophylaxis: Pepcid Plan: Continue current medications and continue to monitor closely. Patient currently in the ICU for close monitoring status post chest tube placement yesterday. maintained on oral antibiotics and will continue at this time along with dexamethasone, Remdesivir, and zinc supplements. Will continue to monitor vital signs and labs closely as blood sugars continue to be elevated. Pneumothorax noted on the right side in chest x-ray and patient received a chest tubes
[2020-08-22 16:57] LABS: Glucose,Whole Blood 216 mg/dL (75-99)
[2020-08-22 20:27] LABS: Glucose,Whole Blood 287 mg/dL (75-99)
[2020-08-22] MEDS: ASPIRIN 81 MG PO SCH (20:32)
[2020-08-22] MEDS: INSULIN DETEMIR (LEVEMIR) 100 UNIT/ML SYR SQ SCH (21:20)
[2020-08-22] MEDS ORDERED: VANCOMYCIN IV PER PHARMACY 1 EACH MISC MISCELLANE PRN (21:45)
[2020-08-22] MEDS ORDERED: VANCOMYCIN 2,000 MG in SODIUM CHLORIDE 0.9% 500 ML 500 ML IVPB STA (21:49)
[2020-08-22] MEDS: CEFEPIME 2 GM in SODIUM CHLORIDE 0.9% 100 ML IVPB SCH (22:02)
--- NOTE | 2020-08-22 23:12 | PN ---
PROGRESS NOTE DATE OF SERVICE: 08/22/2020 REASON FOR FOLLOWUP: COVID-19 pneumonia. INTERVAL HISTORY: Patient is currently afebrile. The patient did have another chest tube placement by Pulmonary. The patient denies having any worsening chest pain. Breathing is still labored slightly better. Denies any cough or sputum production. No abdominal pain or diarrhea. EXAM: Blood pressure 143/71 with a pulse of 85, temperature 98.6. He is 95% on 100% FiO2. General description is a middle-aged male lying in bed in no distress. Respiratory system: Unlabored breathing, decreased breath sounds at the base. No wheeze. HEART: S1, S2 regular rate and rhythm. ABDOMEN: Soft. No tenderness. LABS: Hemoglobin 16.4, white count 4.8. D-dimer is up to 34.11, and the CRP is significantly elevated as well as procalcitonin. DIAGNOSTIC IMPRESSION AND PLAN: Patient with acute respiratory failure which is multifactorial in this patient who did have acute COVID-19 pneumonia with complication of pneumothorax status post chest tube placement. The patient now has worsening of his inflammatory markers, white count as well as D-dimer and procalcitonin. We will start the patient on empiric broad spectrum antibiotic with worsening of the D-dimer, may benefit from a therapeutic dose of the Lovenox. Discussed further with Pulmonary on the case and continue supportive care. MMODL / IJN: [id number] /
[2020-08-23 05:00] LABS: Basophils # (A) 0.1 k/uL (0-0.2); Basophils % (A) 1 %; Eosinophils # (A) 0.1 k/uL (0-0.7); Eosinophils % (A) 0 %; HCT 44.9 % (39.0-53.0); HGB 15.1 gm/dL (13.0-17.5); Lymphocytes # (A) 0.3 k/uL (1.0-4.8); Lymphocytes % (A) 1 %; MCHC 33.6 g/dL (31.0-37.0); MCV 86.4 fL (80.0-100.0); Mean Platelet Volume 9.2; Monocytes # (A) 0.9 k/uL (0-1.0); Monocytes % (A) 5 %; Neutrophils # (A) 18.2 k/uL (1.3-7.7); Neutrophils % (A) 92 %; Platelet Count 105 k/uL (150-450); RDW 13.6 % (11.5-15.5); WBC 19.7 k/uL (3.8-10.6)
[2020-08-23 05:08] LABS: ALT 16 U/L (4-49); AST 29 U/L (17-59); African American GFR (CKD) >90 (>60 ml/min/1.73 sqM); Albumin 2.8 g/dL (3.5-5.0); Alkaline Phosphatase 105 U/L (38-126); Anion Gap 7 mmol/L; Blood Urea Nitrogen 21 mg/dL (9-20); Calcium 7.9 mg/dL (8.4-10.2); Carbon Dioxide 26 mmol/L (22-30); Chloride 104 mmol/L (98-107); Glucose 196 mg/dL (74-99); LDH 1483 U/L (313-618); Non-African American GFR(CKD) >90 (>60 ml/min/1.73 sqM); Potassium 4.2 mmol/L (3.5-5.1); Sodium 137 mmol/L (137-145); Total Bilirubin 1.1 mg/dL (0.2-1.3); Total Protein 5.7 g/dL (6.3-8.2)
[2020-08-23 05:25] LABS: C Reactive Protein 209.1 mg/L (<10.0)
[2020-08-23 06:58] LABS: Glucose,Whole Blood 249 mg/dL (75-99)
--- NOTE | 2020-08-23 07:30 | XR ---
EXAMINATION TYPE: XR chest 1V portable DATE OF EXAM: 08/23/2020 COMPARISON: 08/22/2020 HISTORY: Chest tube insertion TECHNIQUE: Single frontal view of the chest is obtained. FINDINGS: Right-sided chest tube is seen with extensive subcutaneous emphysema involving the right u pper chest soft tissues extending into the neck. Second chest tube is seen overlying the right lower lung field. Diffuse patchy infiltrates bilaterally with small effusion on the left. There is a 10-15% left-sided pneumothorax. Stable. Hypertrophic changes of the spine. IMPRESSION: 1. Stable left sided pneumothorax measuring 10-15 %. 2. Subcutaneous emphysema right with chest tubes noted in position. 3. Diffuse patchy infiltrates correlate for multifocal pneumonia. Underlying CHF not excluded.
[2020-08-23] MEDS: VANCOMYCIN 1,750 MG in SODIUM CHLORIDE 0.9% 500 ML 500 ML IVPB SCH ×3 (08:23→21:15)
[2020-08-23] MEDS: CEFEPIME 2 GM in SODIUM CHLORIDE 0.9% 100 ML IVPB SCH ×2 (08:23→20:19)
[2020-08-23] MEDS: ZINC SULFATE 220 MG CAP PO SCH (08:25)
[2020-08-23] MEDS: FAMOTIDINE 20 MG TAB PO SCH ×2 (08:25→20:19)
[2020-08-23] MEDS: DEXAMETHASONE SOD PHOSPHATE 10 MG/ML 1 ML VIAL IV SCH (08:25)
[2020-08-23] MEDS: lisinopriL 10 MG TAB PO SCH (08:25)
[2020-08-23] MEDS: ENOXAPARIN 40 MG/0.4 ML SYRINGE SQ SCH (08:25)
[2020-08-23] MEDS: ASCORBIC ACID 500 MG TAB PO SCH (08:25)
[2020-08-23 08:34] LABS: Glucose,Whole Blood 205 mg/dL (75-99)
--- NOTE | 2020-08-23 09:00 | P.GSCN ---
<Andreas Jewell - Last Filed: 08/23/20 08:48> History of Present Illness Consult date: 08/23/20 Reason for Consult: Chest tube management Requesting physician: Jean-Pierre López History of present illness: This is a 59-year-old gentleman who is followed by Dr. Kiley Adams on an outpatient basis. His past medical history significant for hypertension, insulin-dependent diabetes mellitus type 2, and he is a lifetime nonsmoker. He presented to the emergency department here at [facility] on 08/14/2020 with complaints of shortness of breath, sore throat, cough and fever over a 5 day period. He denies any nausea, vomiting, diarrhea, constipation, headache, body aches, hemoptysis or hematemesis. Initial laboratory results showed a WBC count 6.1, hemoglobin 15.3, platelets 100, lymphocytes 0.5, BUN 23, creatinine 0.99, glucose 317, ferritin 823, C-reactive protein 137.2 and Procrit calcitonin 0.23. Flu test were negative for influenza type a and type B. His initial chest x-ray showed focal infiltrate right mid lung and possibly some mild infiltrate at the left lower lung. Subsequently he was admitted for COVID 19. A chest x-ray was completed on 08/20/2020 which demonstrated a right apical pneumothorax with subcutaneous emphysema over the right chest. Subsequently due to the right-sided pneumothorax a right thoracostomy tube was placed by Dr. López from pulmonary medicine. A repeat chest x-ray was completed yesterday 08/22/2020 and despite the right-sided chest tube being in place the x-ray showed an enlarging right-sided pneumothorax and a new left apical pneumothorax estimated at 10-15%. Due to the enlarging right sided pneumothorax Dr. López from pulmonary medicine placed a second right-sided thoracostomy tube. Subsequently, due to the chest tubes being in place a consult was placed to Dr. Cayden Ontiveros for chest tube management. Review of Systems A 14 point review of systems was completed and was negative except as mentioned in the HPI. Past Medical History Past Medical History: Diabetes Mellitus, Hypertension History of Any Multi-Drug Resistant Organisms: None Reported Past Surgical History: Appendectomy Past Psychological History: No Psychological Hx Reported Smoking Status: Never smoker Past Alcohol Use History: None Reported Past Drug Use History: None Reported Medications and Allergies Home Medications Medication Instructions Recorded Confirmed Type Acetaminophen Tab [Tylenol] 1,000 mg PO Q4-6H PRN 08/14/20 08/14/20 History Aspirin EC [Ecotrin Low Dose] 81 mg PO HS 08/14/20 08/14/20 History Insulin Aspart [NovoLOG] See Protocol SQ TID-W/MEALS 08/14/20 08/14/20 History Lisinopril-Hctz 10-12.5 mg 1 tab PO DAILY 08/14/20 08/14/20 History [Zestoretic 10-12.5] metFORMIN HCL 1,000 mg PO BID-W/MEALS 08/14/20 08/14/20 History Allergies Allergy/AdvReac Type Severity Reaction Status Date / Time No Known Allergies Allergy Verified 08/14/20 18:01 Surgical - Exam Vital Signs Temp Pulse Resp BP Pulse Ox 101.7 F H 101 H 18 122/69 93 L 08/14/20 14:32 08/14/20 14:32 08/14/20 14:32 08/14/20 14:32 08/14/20 14:32 - General Mild respiratory distress. well developed, well nourished, no pain, obese - Eyes PERRL, normal ocular movement, no icteric - ENT normal pinna, normal nares, normal mucosa, no hearing loss - Neck Neck is supple. no masses, no bruits, trachea midline, no venous distension - Respiratory Lungs sounds essentially diminished throughout. No wheezes, rhonchi or crackles. Respirations are tachypneic with BiPAP support. Right pleural chest tubes remain in place to low continuous wall suction -20 cm H2O. Air leak is present. Draining thin serosanguineous drainage. - Cardiovascular Regular rhythm and rate. S1 and S2 present, negative for S3, gallop or murmur. - Abdomen Abdomen is soft, nontender and nondistended. Active bowel sounds present all 4 abdominal quadrants. No organomegaly appreciated. - Genitourinary Voiding clear cuong urine. - Rectum Deferred - Integumentary Skin is warm and dry. No clubbing or cyanosis is present. no rash, no growths, no abnormal pigmentation - Neurologic Cranial nerves II through XII intact. - Musculoskeletal Moves all 4 extremities appropriately, strength equal bilateral. - Psychiatric oriented to time, oriented to person, oriented to place, speech is normal, memory intact Results - Labs 08/23/20 04:19 08/23/20 04:19 Abnormal Lab Results - Last 24 Hours (Table) 08/22/20 08/22/20 08/22/20 Range/Units 05:37 12:13 16:56 WBC (3.8-10.6) k/uL Plt Count (150-450) k/uL Neutrophils # (1.3-7.7) k/uL Lymphocytes # (1.0-4.8) k/uL D-Dimer (<0.60) mg/L FEU BUN (9-20) mg/dL Glucose (74-99) mg/dL POC Glucose (mg/dL) 329 H 216 H (75-99) mg/dL Calcium (8.4-10.2) mg/dL Lactate Dehydrogenase (313-618) U/L C-Reactive Protein (<10.0) mg/L Total Protein (6.3-8.2) g/dL Albumin (3.5-5.0) g/dL Procalcitonin 0.25 H (0.02-0.09) ng/mL 08/22/20 08/23/20 08/23/20 Range/Units 20:25 04:19 04:19 WBC 19.7 H (3.8-10.6) k/uL Plt Count 105 L (150-450) k/uL Neutrophils # 18.2 H (1.3-7.7) k/uL Lymphocytes # 0.3 L (1.0-4.8) k/uL D-Dimer (<0.60) mg/L FEU BUN 21 H (9-20) mg/dL Glucose 196 H (74-99) mg/dL POC Glucose (mg/dL) 287 H (75-99) mg/dL Calcium 7.9 L (8.4-10.2) mg/dL Lactate Dehydrogenase 1483 H (313-618) U/L C-Reactive Protein 209.1 H (<10.0) mg/L Total Protein 5.7 L (6.3-8.2) g/dL Albumin 2.8 L (3.5-5.0) g/dL Procalcitonin (0.02-0.09) ng/mL 08/23/20 08/23/20 Range/Units 04:19 06:58 WBC (3.8-10.6) k/uL Plt Count (150-450) k/uL Neutrophils # (1.3-7.7) k/uL Lymphocytes # (1.0-4.8) k/uL D-Dimer 34.11 H (<0.60) mg/L FEU BUN (9-20) mg/dL Glucose (74-99) mg/dL POC Glucose (mg/dL) 249 H (75-99) mg/dL Calcium (8.4-10.2) mg/dL Lactate Dehydrogenase (313-618) U/L C-Reactive Protein (<10.0) mg/L Total Protein (6.3-8.2) g/dL Albumin (3.5-5.0) g/dL Procalcitonin (0.02-0.09) ng/mL Diabetes panel 08/23/20 Range/Units 04:19 Sodium 137 (137-145) mmol/L Potassium 4.2 (3.5-5.1) mmol/L Chloride 104 (98-107) mmol/L Carbon Dioxide 26 (22-30) mmol/L BUN 21 H (9-20) mg/dL Creatinine 0.69 (0.66-1.25) mg/dL Glucose 196 H (74-99) mg/dL Calcium 7.9 L (8.4-10.2) mg/dL AST 29 (17-59) U/L ALT 16 (4-49) U/L Alkaline Phosphatase 105 (38-126) U/L Total Protein 5.7 L (6.3-8.2) g/dL Albumin 2.8 L (3.5-5.0) g/dL Calcium panel 08/23/20 Range/Units 04:19 Calcium 7.9 L (8.4-10.2) mg/dL Albumin 2.8 L (3.5-5.0) g/dL Pituitary panel 08/23/20 Range/Units 04:19 Sodium 137 (137-145) mmol/L Potassium 4.2 (3.5-5.1) mmol/L Chloride 104 (98-107) mmol/L Carbon Dioxide 26 (22-30) mmol/L BUN 21 H (9-20) mg/dL Creatinine 0.69 (0.66-1.25) mg/dL Glucose 196 H (74-99) mg/dL Calcium 7.9 L (8.4-10.2) mg/dL Adrenal panel 08/23/20 Range/Units 04:19 Sodium 137 (137-145) mmol/L Potassium 4.2 (3.5-5.1) mmol/L Chloride 104 (98-107) mmol/L Carbon Dioxide 26 (22-30) mmol/L BUN 21 H (9-20) mg/dL Creatinine 0.69 (0.66-1.25) mg/dL Glucose 196 H (74-99) mg/dL Calcium 7.9 L (8.4-10.2) mg/dL Total Bilirubin 1.1 (0.2-1.3) mg/dL AST 29 (17-59) U/L ALT 16 (4-49) U/L Alkaline Phosphatase 105 (38-126) U/L Total Protein 5.7 L (6.3-8.2) g/dL Albumin 2.8 L (3.5-5.0) g/dL - Imaging Chest x-ray: report reviewed, image reviewed Assessment and Plan Assessment: 1. COVID 19 infection/pneumonia 2. Right-sided pneumothorax status post 2 right-sided thoracostomy tube placement 3. Left sided pneumothorax 10-15% 4. Acute hypoxic respiratory failure secondary to COVID 19 5. Insulin-dependent diabetes mellitus type 2 6. History of hypertension Plan: The patient was seen and examined at his bedside in the intensive care unit. His chart and diagnostics were reviewed. His case was discussed in detail with Dr. Giovanni Frias from cardiothoracic surgery. Continue right-sided chest tubes to low continuous wall suction -20 cm H2O. Monitor for airleak resolution. Continue to follow daily chest x-rays. No surgical intervention is warranted at this time. If the left-sided pneumothorax increases in size he may need a left- sided chest tube placed which should be completed by pulmonary medicine. Medical management per primary care service. Pulmonary management per Dr. López. More recommendations to follow based on patient's clinical course. Thank you Dr. López for this consult and we will look for to working with you in the care of this patient. Time with Patient: Greater than 30 <Giovanni Frias - Last Filed: 08/25/20 10:07> Surgical - Exam Vital Signs Temp Pulse Resp BP Pulse Ox 101.7 F H 101 H 18 122/69 93 L 08/14/20 14:32 08/14/20 14:32 08/14/20 14:32 08/14/20 14:32 08/14/20 14:32 Results - Labs 08/25/20 04:02 08/25/20 04:02 Abnormal Lab Results - Last 24 Hours (Table) 08/24/20 08/24/20 08/24/20 Range/Units 05:34 11:54 17:17 WBC (3.8-10.6) k/uL Plt Count (150-450) k/uL Neutrophils # (1.3-7.7) k/uL Lymphocytes # (1.0-4.8) k/uL ABG pH (7.35-7.45) ABG pCO2 (35-45) mmHg ABG pO2 (83-108) mmHg ABG HCO3 (21-25) mmol/L ABG Total CO2 (19-24) mmol/L ABG O2 Saturation (94-97) % Creatinine (0.66-1.25) mg/dL Glucose (74-99) mg/dL POC Glucose (mg/dL) 116 H 145 H (75-99) mg/dL Calcium (8.4-10.2) mg/dL Procalcitonin 0.17 H (0.02-0.09) ng/mL 08/24/20 08/24/20 08/25/20 Range/Units 20:42 23:50 04:02 WBC (3.8-10.6) k/uL Plt Count (150-450) k/uL Neutrophils # (1.3-7.7) k/uL Lymphocytes # (1.0-4.8) k/uL ABG pH 7.21 L (7.35-7.45) ABG pCO2 58 H (35-45) mmHg ABG pO2 70 L (83-108) mmHg ABG HCO3 (21-25) mmol/L ABG Total CO2 25 H (19-24) mmol/L ABG O2 Saturation 87.9 L (94-97) % Creatinine 0.63 L (0.66-1.25) mg/dL Glucose 184 H (74-99) mg/dL POC Glucose (mg/dL) 199 H (75-99) mg/dL Calcium 7.1 L (8.4-10.2) mg/dL Procalcitonin (0.02-0.09) ng/mL 08/25/20 08/25/20 08/25/20 Range/Units 04:02 05:21 06:10 WBC 34.1 H (3.8-10.6) k/uL Plt Count 128 L (150-450) k/uL Neutrophils # 32.6 H (1.3-7.7) k/uL Lymphocytes # 0.2 L (1.0-4.8) k/uL ABG pH 7.23 L (7.35-7.45) ABG pCO2 63 H (35-45) mmHg ABG pO2 (83-108) mmHg ABG HCO3 27 H (21-25) mmol/L ABG Total CO2 29 H (19-24) mmol/L ABG O2 Saturation 92.7 L (94-97) % Creatinine (0.66-1.25) mg/dL Glucose (74-99) mg/dL POC Glucose (mg/dL) 172 H (75-99) mg/dL Calcium (8.4-10.2) mg/dL Procalcitonin (0.02-0.09) ng/mL Microbiology - Last 24 Hours (Table) 08/25/20 04:14 Sputum Culture - Preliminary Sputum Diabetes panel 08/25/20 Range/Units 04:02 Sodium 137 (137-145) mmol/L Potassium 4.7 (3.5-5.1) mmol/L Chloride 106 (98-107) mmol/L Carbon Dioxide 24 (22-30) mmol/L BUN 19 (9-20) mg/dL Creatinine 0.63 L (0.66-1.25) mg/dL Glucose 184 H (74-99) mg/dL Calcium 7.1 L (8.4-10.2) mg/dL Calcium panel 08/25/20 Range/Units 04:02 Calcium 7.1 L (8.4-10.2) mg/dL Pituitary panel 08/25/20 Range/Units 04:02 Sodium 137 (137-145) mmol/L Potassium 4.7 (3.5-5.1) mmol/L Chloride 106 (98-107) mmol/L Carbon Dioxide 24 (22-30) mmol/L BUN 19 (9-20) mg/dL Creatinine 0.63 L (0.66-1.25) mg/dL Glucose 184 H (74-99) mg/dL Calcium 7.1 L (8.4-10.2) mg/dL Adrenal panel 08/25/20 Range/Units 04:02 Sodium 137 (137-145) mmol/L Potassium 4.7 (3.5-5.1) mmol/L Chloride 106 (98-107) mmol/L Carbon Dioxide 24 (22-30) mmol/L BUN 19 (9-20) mg/dL Creatinine 0.63 L (0.66-1.25) mg/dL Glucose 184 H (74-99) mg/dL Calcium 7.1 L (8.4-10.2) mg/dL Assessment and Plan Plan: I have seen and examined the patient and agree with the assessment and plan as documented by the nurse practitioner.
[2020-08-23] MEDS: INSULIN ASPART (NovoLOG) 100 UNIT/ML VIAL SQ SCH ×4 (09:30→21:07)
[2020-08-23] MEDS: SODIUM CHLORIDE 0.9% 1,000 ML IV SCH ×2 (09:30→21:07)
[2020-08-23 12:06] LABS: Glucose,Whole Blood 190 mg/dL (75-99)
[2020-08-23] MEDS: LORazepam 2 MG/ML INJ IV PRN ×2 (12:47→21:08)
--- NOTE | 2020-08-23 14:03 | P.PN ---
Subjective 53-year-old male is admitted for Covid19 pneumonitis, sepsis. Patient went into hypoxemia last night ended up on 3 L of oxygen.overall feeling little bit better. 08/17/2020 Patient's is pretty status is worse and patient is not doing well in spite of high flow nasal cannula oxygen along with 100% many mask. Patient is being started on Remdesivir. Patient is still complaining of shortness of breath Constitutional: Denied any fatigue denied any fever. Cardio vascular: denied any chest pain, palpitations Gastrointestinal denied any nausea vomiting Pulmonary: As mentioned above Neurologic denied any new focal deficits All inpatient medications were reviewed and appropriate changes in these medications as dictated in the interval history and assessment and plan. 08/18/2020 Patient is seen and evaluated in follow-up and continues to be maintained on high flow oxygen via nasal cannula. Infectious disease is following. Patient continues to have shortness of breath especially with exertion. Discussed with the patient about increasing activity and getting up to the commode and chair. Patient states he feels slightly better today although continues to be extremely dyspneic. Review of systems: Constitutional: No reports of fatigue, fever, or chills Cardiovascular: No reports of chest pain or palpitations Respiratory: Reports shortness of breath with occasional cough GI: No reports of nausea, vomiting, or diarrhea : No reports of dysuria or retention Neurovascular: No reports of weakness or numbness All medications have been reviewed 08/19/2020 Patient is seen and evaluated in follow-up with no real improvement of r espiratory status. Patient continues to sat in the low 80s and drops quickly without oxygen. He she is currently maintained on 15 L high flow oxygen along with a nonrebreather over that and was able to obtain 90% oxygen saturation. Patient is currently sitting up at the bedside asking when he can go home. Discussed with the patient at length about respiratory status and his inability to come off oxygen at this time. White blood count elevated at 17.9 from yesterday. BMP within normal limits although blood glucose levels continue to be elevated. Patient is maintained on sliding scale along with long-acting and oral antidiabetic medications. Will continue to monitor as the dexamethasone may be a component of elevated glucose levels. Discussed with the patient about incentive spirometer and instructed to use at least 10 times every hour while awake. Patient currently denies any chest pain or palpitations. Patient is afebrile. No reports of nausea or vomiting patient states he does not have much of an appetite although is tolerating diet. 08/20/2020 Patient is seen in follow-up and continues to be on a nonrebreather and 15 L high flow oxygen and was found to be extremely anxious and hypoxic with saturations in the 70s earlier this morning Repeat chest x-ray done today shows right side pneumothorax along with pneumo mediastinum, subcutaneous emphysema. Pulmonary Dr. López is following and will be placing a chest tube this afternoon. Lovenox dose will be adjusted once chest tube is placed. White blood count elevated at 20.7. D-dimer was found to be 13.05. 08/22/2020 Patient has 2 chest tubes on the right side. Patient remains on airvo, there was a persistent leak in the previous chest tube. 08/23/2020 Patient the has bilateral pneumothorax right side has 2 chest tubes attached to wall suction and left-sided pneumothorax is 10-15% which is being monitored, cardiothoracic surgery evaluated the patient. Patient is presently on Bipap. Review of systems: Unable to obtain due to his clinical condition did All inpatient medications were reviewed and appropriate changes in these medications as dictated in the interval history and assessment and plan. Objective - Vital Signs Vital signs: Vital Signs Temp 99.1 F 08/23/20 08:00 Pulse 103 H 08/23/20 13:00 Resp 37 H 08/23/20 13:00 BP 179/88 08/23/20 13:00 Pulse Ox 92 L 08/23/20 13:00 Intake & Output 08/22/20 08/23/20 08/23/20 18:59 06:59 18:59 Intake Total 1587 2032 1920 Output Total 1000 900 600 Balance 587 1132 1320 Weight 105.4 kg Intake: IV 1347 1700 1200 Cefepime 2 gm In Sodium 100 100 Chloride 0.9% 100 ml @ 25 mls/hr IVPB Q12HR [facility] Rx #:[id number] Plasma 322 Sodium Chloride 0.9% 1, 1000 1100 600 000 ml @ 100 mls/hr IV . Q10H [facility] Rx#:[id number] Vancomycin 1,750 mg In 500 Sodium Chloride 0.9% 500 ml 500 ml @ 167 mls/hr IVPB Q8H [facility] Rx#: [id number] Vancomycin 2,000 mg In 500 Sodium Chloride 0.9% 500 ml 500 ml @ 167 mls/hr IVPB ONCE STA Rx#: [id number] ns 25 Oral 240 720 Blood Product 0 332 Convalescent Plasma Unit 0 332 [id number] Output: Chest Tube Drainage 50 Chest Tube Right 0 Chest Tube Right Upper 50 Urine 1000 850 600 Other: Voiding Method Urinal Urinal - Exam GENERAL: The patient is alert and oriented x3, patient continues to be in mild respiratory distress. Anxious. Well developed, well nourished. HEENT: Pupils are round and equally reacting to light. EOMI. No scleral icterus. No conjunctival pallor. Normocephalic, atraumatic. No pharyngeal erythema. No thyromegaly. CARDIOVASCULAR: S1 and S2 present. No murmurs, rubs, or gallops. PULMONARY: Bilateral scattered rhonchi, no wheezing noted diminished air entry bilaterally worse on the right, tachypneic, nasal cannula and nonrebreather noted upon exam, 2 chest tubes noted on the right side w ABDOMEN: Soft, nontender, nondistended, normoactive bowel sounds. No palpable organomegaly. MUSCULOSKELETAL: No joint swelling or deformity. EXTREMITIES: No cyanosis, clubbing, or pedal edema. NEUROLOGICAL: Gross neurological examination did not reveal any focal deficits. SKIN: No rashes. Note: Because of COVID 19 isolation, some of the history and physical exam findings are indirect and obtained from nursing staff, and other physician examinations to avoid unnecessary contact with the patient. - Labs CBC & Chem 7: 08/23/20 04:19 08/23/20 04:19 Labs: Abnormal Lab Results - Last 24 Hours (Table) 08/22/20 08/22/20 08/23/20 Range/Units 16:56 20:25 04:19 WBC (3.8-10.6) k/uL Plt Count (150-450) k/uL Neutrophils # (1.3-7.7) k/uL Lymphocytes # (1.0-4.8) k/uL D-Dimer (<0.60) mg/L FEU BUN (9-20) mg/dL Glucose (74-99) mg/dL POC Glucose (mg/dL) 216 H 287 H (75-99) mg/dL Calcium (8.4-10.2) mg/dL Lactate Dehydrogenase (313-618) U/L C-Reactive Protein (<10.0) mg/L Total Protein (6.3-8.2) g/dL Albumin (3.5-5.0) g/dL Procalcitonin 0.28 H (0.02-0.09) ng/mL 08/23/20 08/23/20 08/23/20 Range/Units 04:19 04:19 04:19 WBC 19.7 H (3.8-10.6) k/uL Plt Count 105 L (150-450) k/uL Neutrophils # 18.2 H (1.3-7.7) k/uL Lymphocytes # 0.3 L (1.0-4.8) k/uL D-Dimer 34.11 H (<0.60) mg/L FEU BUN 21 H (9-20) mg/dL Glucose 196 H (74-99) mg/dL POC Glucose (mg/dL) (75-99) mg/dL Calcium 7.9 L (8.4-10.2) mg/dL Lactate Dehydrogenase 1483 H (313-618) U/L C-Reactive Protein 209.1 H (<10.0) mg/L Total Protein 5.7 L (6.3-8.2) g/dL Albumin 2.8 L (3.5-5.0) g/dL Procalcitonin (0.02-0.09) ng/mL 08/23/20 08/23/20 08/23/20 Range/Units 06:58 08:27 12:04 WBC (3.8-10.6) k/uL Plt Count (150-450) k/uL Neutrophils # (1.3-7.7) k/uL Lymphocytes # (1.0-4.8) k/uL D-Dimer (<0.60) mg/L FEU BUN (9-20) mg/dL Glucose (74-99) mg/dL POC Glucose (mg/dL) 249 H 205 H 190 H (75-99) mg/dL Calcium (8.4-10.2) mg/dL Lactate Dehydrogenase (313-618) U/L C-Reactive Protein (<10.0) mg/L Total Protein (6.3-8.2) g/dL Albumin (3.5-5.0) g/dL Procalcitonin (0.02-0.09) ng/mL Assessment and Plan Plan: -Covid 19 infection/pneumonia:continue with Decadron continue with respiratory support, ccompleted Remdesivir. infectious disease following. Patient currently on BiPAP -Right side pneumothorax patient has 2 chest tubes on the right side -Type 2 diabetes mellitus uncontrolled, to continue with oral antidiabetic along with long-acting and sliding scale at this time -mild hypovolemic hyponatremia, improved -Hypertension: -DVT prophylaxis with Lovenox -GI prophylaxis: Pepcid Plan: Continue current medications and continue to monitor closely. Patient currently in the ICU for close monitoring status post chest tube placement yesterday. maintained on oral antibiotics and will continue at this time along with dexamethasone, and zinc supplements. Will continue to monitor vital signs and labs closely as blood sugars continue to be elevated. Pneumothorax noted on the right side in chest x-ray and patient received a chest tubes
[2020-08-23 17:01] LABS: Glucose,Whole Blood 340 mg/dL (75-99)
[2020-08-23] MEDS: ASPIRIN 81 MG PO SCH (20:18)
[2020-08-23 20:24] LABS: Glucose,Whole Blood 223 mg/dL (75-99)
--- NOTE | 2020-08-23 20:46 | P.PN ---
Subjective Progress Note Date: 08/23/20 (Critical care time 35 minutes) Principal diagnosis: Right spontaneous pneumothorax status post 2 chest tubes Pneumomediastinum Left spontaneous pneumothorax Acute hypoxic respiratory failure Covid 19 pneumonia Type 2 diabetes mellitus Hypertension hypertensive cardiovascular disease Dehydration hypovolemia and hyponatremia Depression 08/23/2020, patient seen eval reexamined during the rounds labs reviewed medications reviewed, oxygen saturation remained stable, however patient couldn't tolerate off of BiPAP, he remains on BiPAP. All, chest x-ray reviewed, patient hasn't to right-sided chest tube air leak is present from both, left- sided residual small pneumothorax present along with subcutaneous emphysema and mediastinal emphysema, interventional radiology could not do a chest tube on the left side, they are planning to do it tomorrow, white cell count decreased to 19,000, d-dimer is still elevated inflammatory parameters elevated consistent with cytokine nita 08/22/2020, patient seen eval reexamined significant desaturation was more noted, sats dropped down to 55-70% spontaneously comes right back up though currently on 93% BiPAP, Semiprone with the right side up patient cannot tolerate airvo, desaturated easily remains tachypneic tachycardic hemodynamic status however remains stable, chest x-ray findings reviewed in spite of right-sided chest tube and persistent air leak there is a persistent spontaneous pneumothorax fairly large on the right side and small apical left sided spontaneous pneumothorax noted with pneumomediastinum and bilateral dense infiltrate at the bases, thoracic surgery has been consulted, patient may need an another chest tube on the right side versus VATS and preferably and of the small chest U was on the left side, will defer to expertise of thoracic surgery, labs reviewed medications reviewed care plan discussed at length with the staff 08/21/2020, patient seen eval examined during the rounds sitting upright in chair breathing slightly better oxygen saturation is 87-88%, patient is on high flow oxygen along with the nonrebreather mass, tachypneic tachycardic blood pressure is slightly high, patient has a right-sided chest tube is still leaking air, chest x-ray reviewed bilateral infiltrate is present with residual pneumothorax and subcu emphysema, labs from today reviewed white cell count remains elevated 20,000, renal functions stable, will attempt semi-prone with right side up, we will obtain an transfuse convalescent plasma 08/20/2020, patient seen eval examined during the rounds a labs reviewed medications reviewed this morning patient had problems with agitated anxiety and a prehension, oxygen saturation dropped down into 70s, rapid response was called and stat chest x-ray revealed presence of pneumothorax which is significant on the right side as well they may be a small mediastinal emphysema on the left side as well, patient has been made semi-prone with that oxygen saturation 100% nonrebreather mask improved to 92% patient is more calm, he remains afebrile temperature is 98.3 respiratory rate and mid to high 20s, weight is oxygen saturation 94%, chest x-ray finding reviewed 08/19/2020, patient seen eval examined during the rounds labs reviewed medications reviewed care plan discussed, patient is sitting upright on the bed on 100% nonrebreather mask, saturation remains marginal about 88%, remains afebrile, slightly anxious, advised based he hasn't to be on prone position as much as possible, labs reviewed white cell count is 17,000, patient remains on Remdesivir, Decadron, Lovenox August 18 2020, patient seen eval examined during the rounds is still on 5 L high flow oxygen, denies any chest pain breathing difficulties present, denies any cough or sputum production labs chest x-ray reviewed This is a 59-year-old male who has history of diabetes hypertension hypertensive cardiovascular disease and not feeling well for the last 5-6 days with cough and increased shortness of breath started with a sore throat, patient admitted into the hospital was spiking fever up to 101, oxygen saturation 90%, patient already has been started on REM doesn't wear and Decadron, his initial admit x-ray cystoscopy right midlung field and left lower lid feeding infiltrate patient gradually got worse initially has been on room air oxygen requirement keep on going up to 3 L and subsequently on 5 L high flow oxygen with that oxygen saturation is 93%, critical care time spent 35 minutes Objective - Vital Signs Vital signs: Vital Signs Temp 99.1 F 08/23/20 16:00 Pulse 98 08/23/20 19:00 Resp 30 H 08/23/20 19:00 BP 164/78 08/23/20 19:00 Pulse Ox 100 08/23/20 19:00 Intake & Output 08/23/20 08/23/20 08/24/20 06:59 18:59 06:59 Intake Total 2032 3520 100 Output Total 900 900 350 Balance 1132 2620 -250 Weight 105.4 kg Intake: IV 1700 2300 100 Cefepime 2 gm In Sodium 100 100 Chloride 0.9% 100 ml @ 25 mls/hr IVPB Q12HR [facility] Rx #:[id number] Sodium Chloride 0.9% 1, 1100 1200 100 000 ml @ 100 mls/hr IV . Q10H [facility] Rx#:[id number] Vancomycin 1,750 mg In 1000 Sodium Chloride 0.9% 500 ml 500 ml @ 167 mls/hr IVPB Q8H [facility] Rx#: [id number] Vancomycin 2,000 mg In 500 Sodium Chloride 0.9% 500 ml 500 ml @ 167 mls/hr IVPB ONCE [facility] Rx#: [id number] Oral 1220 Blood Product 332 Convalescent Plasma Unit 332 [id number] Output: Chest Tube Drainage 50 Chest Tube Right 0 Chest Tube Right Upper 50 Urine 850 900 350 Other: Voiding Method Urinal # Bowel Movements 1 - Exam - Constitutional General appearance: cooperative, disheveled, mild distress - EENT Eyes: EOMI, PERRLA Ears: bilateral: normal - Neck Neck: normal ROM Carotids: bilateral: upstroke normal Thyroid: bilateral: normal size - Respiratory Respiratory: bilateral: diminished - Cardiovascular Rhythm: regular Heart sounds: normal: S1, S2 - Gastrointestinal General gastrointestinal: normal bowel sounds - Neurologic Neurologic: CNII-XII intact - Musculoskeletal Musculoskeletal: gait normal, generalized weakness, strength equal bilaterally - Psychiatric Psychiatric: A&O x's 3, appropriate affect, intact judgment & insight - Labs CBC & Chem 7: 08/23/20 04:19 08/23/20 04:19 Labs: Abnormal Lab Results - Last 24 Hours (Table) 08/23/20 08/23/20 08/23/20 Range/Units 04:19 04:19 04:19 WBC 19.7 H (3.8-10.6) k/uL Plt Count 105 L (150-450) k/uL Neutrophils # 18.2 H (1.3-7.7) k/uL Lymphocytes # 0.3 L (1.0-4.8) k/uL D-Dimer (<0.60) mg/L FEU BUN 21 H (9-20) mg/dL Glucose 196 H (74-99) mg/dL POC Glucose (mg/dL) (75-99) mg/dL Calcium 7.9 L (8.4-10.2) mg/dL Lactate Dehydrogenase 1483 H (313-618) U/L C-Reactive Protein 209.1 H (<10.0) mg/L Total Protein 5.7 L (6.3-8.2) g/dL Albumin 2.8 L (3.5-5.0) g/dL Procalcitonin 0.28 H (0.02-0.09) ng/mL 08/23/20 08/23/20 08/23/20 Range/Units 04:19 06:58 08:27 WBC (3.8-10.6) k/uL Plt Count (150-450) k/uL Neutrophils # (1.3-7.7) k/uL Lymphocytes # (1.0-4.8) k/uL D-Dimer 34.11 H (<0.60) mg/L FEU BUN (9-20) mg/dL Glucose (74-99) mg/dL POC Glucose (mg/dL) 249 H 205 H (75-99) mg/dL Calcium (8.4-10.2) mg/dL Lactate Dehydrogenase (313-618) U/L C-Reactive Protein (<10.0) mg/L Total Protein (6.3-8.2) g/dL Albumin (3.5-5.0) g/dL Procalcitonin (0.02-0.09) ng/mL 08/23/20 08/23/20 08/23/20 Range/Units 12:04 16:59 20:23 WBC (3.8-10.6) k/uL Plt Count (150-450) k/uL Neutrophils # (1.3-7.7) k/uL Lymphocytes # (1.0-4.8) k/uL D-Dimer (<0.60) mg/L FEU BUN (9-20) mg/dL Glucose (74-99) mg/dL POC Glucose (mg/dL) 190 H 340 H 223 H (75-99) mg/dL Calcium (8.4-10.2) mg/dL Lactate Dehydrogenase (313-618) U/L C-Reactive Protein (<10.0) mg/L Total Protein (6.3-8.2) g/dL Albumin (3.5-5.0) g/dL Procalcitonin (0.02-0.09) ng/mL Assessment and Plan Assessment: Right spontaneous pneumothorax in spite of right-sided double chest tube persistent air leak and pneumothorax is present Pneumomediastinum Left spontaneous pneumothorax, interventional radiology could not put small bore chest tube in, they are planning to do it tomorrow Acute hypoxic respiratory failure Covid 19 pneumonia Type 2 diabetes mellitus Hypertension hypertensive cardiovascular disease Dehydration hypovolemia and hyponatremia Depression Plan: Status post right-sided chest tube , a leak is present, right sided pneumothorax on today's x-ray appears larger there is a stable left apical pneumothorax present with persistence of pneumomediastinum, thoracic surgery has been co nsulted, interventional radiology also consulted for left-sided smallbore pigtail chest tube Continue antihypertensive agent from home Continue to follow sugars closely Chest tube to 20 cm water suction is still have significant air leak from both chest tube For now oxygen saturation is stable patient is an semi-prone with the right- sided up Status post Convalescent plasma Agree with supplemental oxygen and nonrebreather mask may need BiPAP as needed O follow closely Prone positioning as much as 16 hour a day either continuous or intermittent Deep breathing exercise incentive spirometry Increase activity as tolerated Continue Decadron and IV Remdesivir for 10 and 5 days respectively Further plan of care as per clinical response of the patient, overall prognosis is guarded
[2020-08-23] MEDS: INSULIN DETEMIR (LEVEMIR) 100 UNIT/ML SYR SQ SCH (21:14)
--- NOTE | 2020-08-24 00:09 | PN ---
PROGRESS NOTE DATE OF SERVICE: 08/23/2020 REASON FOR FOLLOWUP: Acute COVID-19 pneumonia. INTERVAL HISTORY: The patient is afebrile. The patient is hemodynamically stable. The patient remains to be BiPAP dependent. Denies having any chest . No vomiting or diarrhea. Main symptoms remains to be difficulty with breathing. PHYSICAL EXAMINATION: Blood pressure 164/78 with a pulse of 98, temperature 98.1. He is 100% on 90% FiO2. General description is a middle-aged male lying in bed in no distress. RESPIRATORY SYSTEM: Unlabored breathing, decreased breath sounds at the bases. No wheeze. HEART: S1, S2. Regular rate and rhythm. ABDOMEN: Soft. No tenderness. LABS: Hemoglobin 15.2, white count 19.7, BUN of 21, creatinine 0.69. DIAGNOSTIC IMPRESSION AND PLAN: Patient with acute COVID-19 pneumonia in this patient clinical course complicated by development of pneumothorax, status post chest tube placement. The patient also has elevated procalcitonin for which antibiotic has been started in the form of cefepime and vancomycin to continue. In addition to continue Lovenox and monitor his clinical course closely. Continue supportive care. MMODL / IJN: [id number] /
[2020-08-24] MEDS ORDERED: VANCOMYCIN TROUGH DUE 1 EACH MISC MISCELLANE ONE (05:00)
[2020-08-24 06:17] LABS: African American GFR (CKD) >90 (>60 ml/min/1.73 sqM); Non-African American GFR(CKD) >90 (>60 ml/min/1.73 sqM)
[2020-08-24 06:22] LABS: LDH 1973 U/L (313-618)
[2020-08-24 06:36] LABS: C Reactive Protein 132.8 mg/L (<10.0)
--- NOTE | 2020-08-24 08:35 | XR ---
EXAMINATION TYPE: XR chest 1V portable DATE OF EXAM: 08/24/2020 COMPARISON: 08/23/2020 INDICATION: Pneumothorax, tube placement TECHNIQUE: Single frontal view of the chest is obtained. FINDINGS: The heart size is normal. The pulmonary vasculature is normal. There is diffuse increased lung markings present bilaterally. There is a moderate right pneumothorax which has developed over the interval. Small left apical pneum othorax is present and is stable from comparison. 2 right-sided chest tubes are present, the more sup erior chest tube appears to have been pulled back from prior exam. Subcutaneous emphysema is present on the right. IMPRESSION: 1. Moderate size recurrence of a right pneumothorax. This is new from 08/23/2020. 2. Small left apical pneumothorax appears stable. 3. The more superior right chest tube is been pulled back somewhat from the comparison study. 4. Diffuse patchy infiltrates within the bilateral lungs. A Red level critical message alert has been initiated for Jean-Pierre López via the [employer] Critical Results System on 08/24/2020 8:32 AM. This message alert has been sent to Jean-Pierre López via the [employer] nicole provided by the clinician for the receipt of Radiology Critical Findings. Message ID [id number].
[2020-08-24] MEDS: VANCOMYCIN 1,750 MG in SODIUM CHLORIDE 0.9% 500 ML 500 ML IVPB SCH ×3 (09:07→23:53)
[2020-08-24] MEDS: SODIUM CHLORIDE 0.9% 1,000 ML IV SCH ×2 (09:07→20:34)
[2020-08-24] MEDS: CEFEPIME 2 GM in SODIUM CHLORIDE 0.9% 100 ML IVPB SCH ×2 (09:07→20:31)
[2020-08-24] MEDS: ASCORBIC ACID 500 MG TAB PO SCH (09:08)
[2020-08-24] MEDS: FAMOTIDINE 20 MG TAB PO SCH ×2 (09:08→20:31)
[2020-08-24] MEDS: lisinopriL 10 MG TAB PO SCH (09:08)
[2020-08-24] MEDS: DEXAMETHASONE SOD PHOSPHATE 10 MG/ML 1 ML VIAL IV SCH (09:08)
[2020-08-24 09:23] LABS: Glucose,Whole Blood 170 mg/dL (75-99)
[2020-08-24 09:44] LABS: Mean Platelet Volume 9.5; Platelet Count 133 k/uL (150-450)
[2020-08-24 09:48] LABS: INR 1.2 (<1.2); Prothrombin Time 12.1 sec (9.0-12.0)
--- NOTE | 2020-08-24 10:37 | P.PN ---
<Savanah Garcia - Last Filed: 08/24/20 10:37> Subjective Progress Note Date: 08/24/20 Principal diagnosis: COVID 19 infection/pneumonia, right-sided pneumothorax, left-sided pneumothorax, acute hypoxic respiratory failure secondary to COVID 19. Previous medical history of insulin-dependent diabetes mellitus type 2, hypertension Status post right sided chest tube placement on 08/20/20 and 08/22/20 The patient is currently sitting up in bed in no acute distress. Remains in the intensive care unit on bipap with FiO2 100%. Two right-sided chest tubes have been placed by Dr. López with continued right-sided pneumothorax and continuous air leak in the chest tube chambers. CXR this am reveals increase in right- sided pneumothorax, left-sided appears about the same. Remains short of breath with minimal activity and at rest. Oxygen saturations better with sitting up to bedside and laying on left side, patient desats with laying on right side. Reportedly has had some diarrhea. Objective - Vital Signs Vital signs: Vital Signs Temp 98.9 F 08/23/20 20:00 Pulse 97 08/24/20 05:00 Resp 41 H 08/24/20 05:00 BP 162/77 08/24/20 05:00 Pulse Ox 87 L 08/24/20 05:00 Intake & Output 08/23/20 08/24/20 08/24/20 18:59 06:59 18:59 Intake Total 3520 1701 Output Total 900 940 Balance 2620 761 Weight 102.7 kg Intake: IV 2300 1701 Cefepime 2 gm In Sodium 100 100 Chloride 0.9% 100 ml @ 25 mls/hr IVPB Q12HR [facility] Rx #:[id number] Sodium Chloride 0.9% 1, 1200 1100 000 ml @ 100 mls/hr IV . Q10H [facility] Rx#:[id number] Vancomycin 1,750 mg In 1000 501 Sodium Chloride 0.9% 500 ml 500 ml @ 167 mls/hr IVPB Q8H [facility] Rx#: [id number] Oral 1220 Output: Urine 900 940 Other: Voiding Method Urinal # Bowel Movements 1 - Constitutional General appearance: Present: cooperative, mild distress - Respiratory Details: Lungs sounds diminished throughout. Respirations are tachypneic with BiPAP s upport, current settings FiO2 100%, IPAP/EPAP 10/15. Right pleural chest tubes remain in place to continuous wall suction, continuous air leak is present. Draining minimal thin serosanguineous drainage. - Cardiovascular Details: S1, S2 present. Regular rate and rhythm, sinus rhythm on telemetry. Palpable pulses bilaterally. No edema present. - Gastrointestinal Gastrointestinal Comment(s): Abdomen soft, non-tender, non-distended. Active bowel sounds present x 4 quadrants. Currently NPO for surgical eval, on bipap. Reported diarrhea - Genitourinary Genitourinary Comment(s): Continues to void - Integumentary Integumentary Comment(s): Skin is warm and dry - Neurologic Neurologic: Present: CNII-XII intact - Musculoskeletal Musculoskeletal: Present: strength equal bilaterally - Psychiatric Psychiatric: Present: A&O x's 3, appropriate affect, intact judgment & insight - Allied health notes Allied health notes reviewed: nursing - Labs CBC & Chem 7: 08/23/20 04:19 08/24/20 05:34 Labs: Abnormal Lab Results - Last 24 Hours (Table) 08/23/20 08/23/20 08/23/20 Range/Units 04:19 08:27 12:04 D-Dimer (<0.60) mg/L FEU Creatinine (0.66-1.25) mg/dL POC Glucose (mg/dL) 205 H 190 H (75-99) mg/dL Lactate Dehydrogenase (313-618) U/L C-Reactive Protein (<10.0) mg/L Procalcitonin 0.28 H (0.02-0.09) ng/mL 08/23/20 08/23/20 08/24/20 Range/Units 16:59 20:23 05:34 D-Dimer 33.36 H (<0.60) mg/L FEU Creatinine (0.66-1.25) mg/dL POC Glucose (mg/dL) 340 H 223 H (75-99) mg/dL Lactate Dehydrogenase (313-618) U/L C-Reactive Protein (<10.0) mg/L Procalcitonin (0.02-0.09) ng/mL 08/24/20 Range/Units 05:34 D-Dimer (<0.60) mg/L FEU Creatinine 0.61 L (0.66-1.25) mg/dL POC Glucose (mg/dL) (75-99) mg/dL Lactate Dehydrogenase 1973 H (313-618) U/L C-Reactive Protein 132.8 H (<10.0) mg/L Procalcitonin (0.02-0.09) ng/mL - Imaging and Cardiology Chest x-ray: image reviewed Assessment and Plan Assessment: 1. COVID 19 infection/pneumonia 2. Right-sided pneumothorax status post right-sided thoracostomy tube placement x [address] López 3. Left sided pneumothorax 4. Acute hypoxic respiratory failure secondary to COVID 19, remains on bipap with FiO2 100% 5. Insulin-dependent diabetes mellitus type 2 6. History of hypertension Plan: 1. Continue right sided chest tubes to continuous wall suction. Monitor for resolution of pneumothorax 2. Plan is for left sided pigtail catheter placement by IR today per Dr. López 3. Wean from bipap as tolerated. Management per Dr. López 4. Covid/pneumonia treatment per Dr. López and Dr. De Guzman 5. Continue to monitor daily CXR, inflammatory markers 6. GI/DVT prophylaxis 7. Medical management of other comorbidities per primary care service I have seen and examined the patient and agree with the assessment and plan as dictated by my nurse practitioner. Time with Patient: Greater than 30 <Cayden Ontiveros - Last Filed: 08/24/20 11:20> Objective - Vital Signs Vital signs: Vital Signs Temp 98.0 F 08/24/20 09:00 Pulse 101 H 08/24/20 10:00 Resp 36 H 08/24/20 10:00 BP 173/85 08/24/20 10:00 Pulse Ox 92 L 08/24/20 10:00 Intake & Output 08/23/20 08/24/20 08/24/20 18:59 06:59 18:59 Intake Total 3520 1801 1000 Output Total 900 940 400 Balance 2620 861 600 Weight 102.7 kg Intake: IV 2300 1801 1000 Cefepime 2 gm In Sodium 100 100 100 Chloride 0.9% 100 ml @ 25 mls/hr IVPB Q12HR [facility] Rx #:[id number] Sodium Chloride 0.9% 1, 1200 1200 400 000 ml @ 100 mls/hr IV . Q10H [facility] Rx#:[id number] Vancomycin 1,750 mg In 1000 501 500 Sodium Chloride 0.9% 500 ml 500 ml @ 167 mls/hr IVPB Q8H [facility] Rx#: [id number] Oral 1220 Output: Urine 900 940 400 Other: Voiding Method Urinal Urinal # Bowel Movements 1 - Labs CBC & Chem 7: 08/24/20 05:34 08/24/20 05:34 Labs: Abnormal Lab Results - Last 24 Hours (Table) 08/23/20 08/23/20 08/23/20 Range/Units 12:04 16:59 20:23 Plt Count (150-450) k/uL PT (9.0-12.0) sec INR (<1.2) D-Dimer (<0.60) mg/L FEU Creatinine (0.66-1.25) mg/dL POC Glucose (mg/dL) 190 H 340 H 223 H (75-99) mg/dL Lactate Dehydrogenase (313-618) U/L C-Reactive Protein (<10.0) mg/L 08/24/20 08/24/20 08/24/20 Range/Units 05:34 05:34 05:34 Plt Count 133 L (150-450) k/uL PT (9.0-12.0) sec INR (<1.2) D-Dimer 33.36 H (<0.60) mg/L FEU Creatinine 0.61 L (0.66-1.25) mg/dL POC Glucose (mg/dL) (75-99) mg/dL Lactate Dehydrogenase 1973 H (313-618) U/L C-Reactive Protein 132.8 H (<10.0) mg/L 08/24/20 08/24/20 Range/Units 05:34 09:22 Plt Count (150-450) k/uL PT 12.1 H (9.0-12.0) sec INR 1.2 H (<1.2) D-Dimer (<0.60) mg/L FEU Creatinine (0.66-1.25) mg/dL POC Glucose (mg/dL) 170 H (75-99) mg/dL Lactate Dehydrogenase (313-618) U/L C-Reactive Protein (<10.0) mg/L Assessment and Plan Plan: Patient with continuous air leak via R chest tubesx2. Worsening R Ptx on today's CXR. Left sided Ptx overall mildly increased. Recommendations at this point are to increase suction level on both R CT to -30 mmHg than repeat CXR in 2-4 hours. Asfar as the left sided, I would caution from transferring the patient off- suction to IR suite. Patient could be candidate for a L THORAVENT that could be inserted at bedside.
--- NOTE | 2020-08-24 10:46 | P.PN ---
Subjective Progress Note Date: 08/24/20 (Critical care time 45 minutes) Principal diagnosis: Right spontaneous pneumothorax status post 2 chest tubes Pneumomediastinum Left spontaneous pneumothorax Acute hypoxic respiratory failure Covid 19 pneumonia Type 2 diabetes mellitus Hypertension hypertensive cardiovascular disease Dehydration hypovolemia and hyponatremia Depression 08/24/2020, patient seen eval examined during the rounds labs reviewed medications reviewed sitting upright on the bed, remains on BiPAP with 100% oxygen, saturation 95%, patient desaturated into goes on the right side down and intermittently during supine posture, however do better with left side up, and sitting up as well, chest x-ray from today reviewed pneumothorax recurred on the right side in spite of 2 chest tube aiming towards the apex and the base with significant air leak, small left apical pneumothorax however is stable, patient is awaiting evaluation from thoracic surgery for possible VATS or transfer to tertiary care center, left side and INR will put a small bore pigtail catheter at the apex later on this morning, patient remains afebrile slightly tachycardic tachypneic, inflammatory parameters still up, prognosis is guarded care plan discussed directly and indirectly with primary service, staff, cardiothoracic and IR 08/23/2020, patient seen eval reexamined during the rounds labs reviewed medications reviewed, oxygen saturation remained stable, however patient couldn't tolerate off of BiPAP, he remains on BiPAP. All, chest x-ray reviewed, patient hasn't to right-sided chest tube air leak is present from both, left- sided residual small pneumothorax present along with subcutaneous emphysema and mediastinal emphysema, interventional radiology could not do a chest tube on the left side, they are planning to do it tomorrow, white cell count decreased to 19,000, d-dimer is still elevated inflammatory parameters elevated consistent with cytokine nita 08/22/2020, patient seen eval reexamined significant desaturation was more noted, sats dropped down to 55-70% spontaneously comes right back up though currently on 93% BiPAP, Semiprone with the right side up patient cannot tolerate airvo, desaturated easily remains tachypneic tachycardic hemodynamic status however remains stable, chest x-ray findings reviewed in spite of right-sided chest tube and persistent air leak there is a persistent spontaneous pneumothorax fairly large on the right side and small apical left sided spontaneous pneumothorax noted with pneumomediastinum and bilateral dense infiltrate at the bases, thoracic surgery has been consulted, patient may need an another chest tube on the right side versus VATS and preferably and of the small chest U was on the left side, will defer to expertise of thoracic surgery, labs reviewed medications reviewed care plan discussed at length with the staff 08/21/2020, patient seen eval examined during the rounds sitting upright in chair breathing slightly better oxygen saturation is 87-88%, patient is on high flow oxygen along with the nonrebreather mass, tachypneic tachycardic blood pressure is slightly high, patient has a right-sided chest tube is still leaking air, chest x-ray reviewed bilateral infiltrate is present with residual pneumothorax and subcu emphysema, labs from today reviewed white cell count remains elevated 20,000, renal functions stable, will attempt semi-prone with right side up, we will obtain an transfuse convalescent plasma 08/20/2020, patient seen eval examined during the rounds a labs reviewed medications reviewed this morning patient had problems with agitated anxiety and a prehension, oxygen saturation dropped down into 70s, rapid response was called and stat chest x-ray revealed presence of pneumothorax which is significant on the right side as well they may be a small mediastinal emphysema on the left side as well, patient has been made semi-prone with that oxygen saturation 100% nonrebreather mask improved to 92% patient is more calm, he remains afebrile temperature is 98.3 respiratory rate and mid to high 20s, weight is oxygen saturation 94%, chest x-ray finding reviewed 08/19/2020, patient seen eval examined during the rounds labs reviewed medications reviewed care plan discussed, patient is sitting upright on the bed on 100% nonrebreather mask, saturation remains marginal about 88%, remains afebrile, slightly anxious, advised based he hasn't to be on prone position as much as possible, labs reviewed white cell count is 17,000, patient remains on Remdesivir, Decadron, Lovenox August 18 2020, patient seen eval examined during the rounds is still on 5 L high flow oxygen, denies any chest pain breathing difficulties present, denies any cough or sputum production labs chest x-ray reviewed This is a 59-year-old male who has history of diabetes hypertension hypertensive cardiovascular disease and not feeling well for the last 5-6 days with cough and increased shortness of breath started with a sore throat, patient admitted into the hospital was spiking fever up to 101, oxygen saturation 90%, patient already has been started on REM doesn't wear and Decadron, his initial admit x-ray cystoscopy right midlung field and left lower lid feeding infiltrate patient gradually got worse initially has been on room air oxygen requirement keep on going up to 3 L and subsequently on 5 L high flow oxygen with that oxygen saturation is 93%, critical care time spent 35 minutes Objective - Vital Signs Vital signs: Vital Signs Temp 98.0 F 08/24/20 09:00 Pulse 101 H 08/24/20 10:00 Resp 36 H 08/24/20 10:00 BP 173/85 08/24/20 10:00 Pulse Ox 92 L 08/24/20 10:00 Intake & Output 08/23/20 08/24/20 08/24/20 18:59 06:59 18:59 Intake Total 3520 1801 1000 Output Total 900 940 400 Balance 2620 861 600 Weight 102.7 kg Intake: IV 2300 1801 1000 Cefepime 2 gm In Sodium 100 100 100 Chloride 0.9% 100 ml @ 25 mls/hr IVPB Q12HR [facility] Rx #:[id number] Sodium Chloride 0.9% 1, 1200 1200 400 000 ml @ 100 mls/hr IV . Q10H [facility] Rx#:[id number] Vancomycin 1,750 mg In 1000 501 500 Sodium Chloride 0.9% 500 ml 500 ml @ 167 mls/hr IVPB Q8H [facility] Rx#: [id number] Oral 1220 Output: Urine 900 940 400 Other: Voiding Method Urinal Urinal # Bowel Movements 1 - Exam - Constitutional General appearance: cooperative, disheveled, mild distress - EENT Eyes: EOMI, PERRLA Ears: bilateral: normal - Neck Neck: normal ROM Carotids: bilateral: upstroke normal Thyroid: bilateral: normal size - Respiratory Respiratory: bilateral: diminished - Cardiovascular Rhythm: regular Heart sounds: normal: S1, S2 - Gastrointestinal General gastrointestinal: normal bowel sounds - Neurologic Neurologic: CNII-XII intact - Musculoskeletal Musculoskeletal: gait normal, generalized weakness, strength equal bilaterally - Psychiatric Psychiatric: A&O x's 3, appropriate affect, intact judgment & insight - Labs CBC & Chem 7: 08/24/20 05:34 08/24/20 05:34 Labs: Abnormal Lab Results - Last 24 Hours (Table) 08/23/20 08/23/20 08/23/20 Range/Units 04:19 12:04 16:59 Plt Count (150-450) k/uL PT (9.0-12.0) sec INR (<1.2) D-Dimer (<0.60) mg/L FEU Creatinine (0.66-1.25) mg/dL POC Glucose (mg/dL) 190 H 340 H (75-99) mg/dL Lactate Dehydrogenase (313-618) U/L C-Reactive Protein (<10.0) mg/L Procalcitonin 0.28 H (0.02-0.09) ng/mL 08/23/20 08/24/20 08/24/20 Range/Units 20:23 05:34 05:34 Plt Count (150-450) k/uL PT (9.0-12.0) sec INR (<1.2) D-Dimer 33.36 H (<0.60) mg/L FEU Creatinine 0.61 L (0.66-1.25) mg/dL POC Glucose (mg/dL) 223 H (75-99) mg/dL Lactate Dehydrogenase 1973 H (313-618) U/L C-Reactive Protein 132.8 H (<10.0) mg/L Procalcitonin (0.02-0.09) ng/mL 08/24/20 08/24/20 08/24/20 Range/Units 05:34 05:34 09:22 Plt Count 133 L (150-450) k/uL PT 12.1 H (9.0-12.0) sec INR 1.2 H (<1.2) D-Dimer (<0.60) mg/L FEU Creatinine (0.66-1.25) mg/dL POC Glucose (mg/dL) 170 H (75-99) mg/dL Lactate Dehydrogenase (313-618) U/L C-Reactive Protein (<10.0) mg/L Procalcitonin (0.02-0.09) ng/mL Assessment and Plan Assessment: Right spontaneous pneumothorax in spite of right-sided double chest tube persistent air leak and pneumothorax is present, cardiothoracic surgery is evaluating the patient for VATS versus transfer to tertiary care center Pneumomediastinum Left spontaneous pneumothorax, interventional radiology will put a small bore left-sided apical chest tube Acute hypoxic respiratory failure Covid 19 pneumonia Type 2 diabetes mellitus Hypertension hypertensive cardiovascular disease Dehydration hypovolemia and hyponatremia Depression Plan: Chest U assessment and plan for bilateral pneumothoraces and pneumomediastinum as above Continue antihypertensive agent from home Continue to follow sugars closely Chest tube to 20 cm water suction is still have significant air leak from both chest tube For now oxygen saturation is stable patient is an semi-prone with the right- sided up Status post Convalescent plasma Agree with supplemental oxygen and nonrebreather mask may need BiPAP as needed O follow closely Prone positioning as much as 16 hour a day either continuous or intermittent Deep breathing exercise incentive spirometry Increase activity as tolerated Continue Decadron and IV Remdesivir for 10 and 5 days respectively Further plan of care as per clinical response of the patient, overall prognosis is guarded Time with Patient: Greater than 30
[2020-08-24] MEDS: INSULIN ASPART (NovoLOG) 100 UNIT/ML VIAL SQ SCH ×4 (10:50→20:53)
[2020-08-24] MEDS: ZINC SULFATE 220 MG CAP PO SCH (10:51)
[2020-08-24 11:56] LABS: Glucose,Whole Blood 116 mg/dL (75-99)
--- NOTE | 2020-08-24 14:25 | P.PN ---
Subjective Progress Note Date: 08/24/20 53-year-old male is admitted for Covid19 pneumonitis, sepsis. Patient went into hypoxemia last night ended up on 3 L of oxygen.overall feeling little bit better. 08/17/2020 Patient's is pretty status is worse and patient is not doing well in spite of high flow nasal cannula oxygen along with 100% many mask. Patient is being started on Remdesivir. Patient is still complaining of shortness of breath Constitutional: Denied any fatigue denied any fever. Cardio vascular: denied any chest pain, palpitations Gastrointestinal denied any nausea vomiting Pulmonary: As mentioned above Neurologic denied any new focal deficits All inpatient medications were reviewed and appropriate changes in these medic ations as dictated in the interval history and assessment and plan. 08/18/2020 Patient is seen and evaluated in follow-up and continues to be maintained on high flow oxygen via nasal cannula. Infectious disease is following. Patient continues to have shortness of breath especially with exertion. Discussed with the patient about increasing activity and getting up to the commode and chair. Patient states he feels slightly better today although continues to be extremely dyspneic. Review of systems: Constitutional: No reports of fatigue, fever, or chills Cardiovascular: No reports of chest pain or palpitations Respiratory: Reports shortness of breath with occasional cough GI: No reports of nausea, vomiting, or diarrhea : No reports of dysuria or retention Neurovascular: No reports of weakness or numbness All medications have been reviewed 08/19/2020 Patient is seen and evaluated in follow-up with no real improvement of respiratory status. Patient continues to sat in the low 80s and drops quickly without oxygen. He she is currently maintained on 15 L high flow oxygen along w ith a nonrebreather over that and was able to obtain 90% oxygen saturation. Patient is currently sitting up at the bedside asking when he can go home. Discussed with the patient at length about respiratory status and his inability to come off oxygen at this time. White blood count elevated at 17.9 from yesterday. BMP within normal limits although blood glucose levels continue to be elevated. Patient is maintained on sliding scale along with long-acting and oral antidiabetic medications. Will continue to monitor as the dexamethasone may be a component of elevated glucose levels. Discussed with the patient about incentive spirometer and instructed to use at least 10 times every hour while awake. Patient currently denies any chest pain or palpitations. Patient is afebrile. No reports of nausea or vomiting patient states he does not have much of an appetite although is tolerating diet. 08/20/2020 Patient is seen in follow-up and continues to be on a nonrebreather and 15 L high flow oxygen and was found to be extremely anxious and hypoxic with saturations in the 70s earlier this morning Repeat chest x-ray done today shows right side pneumothorax along with pneumo mediastinum, subcutaneous emphysema. Pulmonary Dr. López is following and will be placing a chest tube this afternoon. Lovenox dose will be adjusted once chest tube is placed. White blood count elevated at 20.7. D-dimer was found to be 13.05. Review of systems: Constitutional: Anxious, no reports of fever, or chills Cardiovascular: No reports of chest pain or palpitations Respiratory: reports worsening shortness of breath and difficulty breathing GI: No reports of nausea, vomiting, or diarrhea : No reports of dysuria or retention Neurovascular: No reports of weakness or numbness All medications have been reviewed 08/21/2020 Patient is seen and evaluated and follow-up currently remains in the ICU as patient underwent right chest tube placement with Dr. López yesterday due to right pneumothorax with pneumomediastinum and subcutaneous emphysema. Patient is currently sitting up in the chair and on a nonrebreather and high flow oxygen at flow rate of 60% with an FiO2 of 85%. Patient is currently at 89% oxygen saturation. Patient is also receiving a unit of fresh frozen plasma and is maintained on Lovenox. Blood sugars continue to be elevated and will continue to monitor with long-acting along with sliding scale. White Blood count 20.2. Chest x-ray this morning shows a stable right pneumothorax with right-sided chest tube noted and stable subcutaneous emphysema. Patient instructed to continue with incentive spirometer and semi-prone position with the right side up. Patient is somewhat anxious and agitated with remaining hospitalized. No reports of chest pain or palpitations. Denies any nausea or vomiting and is tolerating diet. Patient is currently afebrile. 08/22/2020 Patient has 2 chest tubes on the right side. Patient remains on airvo, there was a persistent leak in the previous chest tube. 08/23/2020 Patient the has bilateral pneumothorax right side has 2 chest tubes attached to wall suction and left-sided pneumothorax is 10-15% which is being monitored, cardiothoracic surgery evaluated the patient. Patient is presently on Bipap. Review of systems: Unable to obtain due to his clinical condition did All inpatient medications were reviewed and appropriate changes in these medications as dictated in the interval history and assessment and plan. 08/24/2020 Patient currently remains on a BiPAP and has 2 right-sided chest tubes and awaiting for possible pigtail once more stabilized. Patient is currently unable to tolerate travel to [place] for interventional radiology to place the catheter. Chest x-ray today shows a moderate size recurrence of the right pneumothorax along with a small left apical pneumo that appears to be stable along with diffuse patchy infiltrates within bilateral lung ulloa. Pulmonary following closely. Discussed with pulmonary about the possibility of a transfer to a tertiary care center if patient's clinical status continues to deteriorate and unable to obtain the left side pigtail catheter. Remains in the ICU with close monitoring. Patient continues on IV antibiotics in the form of cefepime and vancomycin along with zinc, Lovenox, and dexamethasone. Review of systems: Constitutional: Reports fatigue, anxious, no reports of fever, or chills Cardiovascular: No reports of chest pain or palpitations Respiratory: Reports continued shortness of breath and cough GI: No reports of nausea, vomiting, or diarrhea : No reports of dysuria or retention Neurovascular: Reports weakness, no reports of numbness All medications have been reviewed Objective - Vital Signs Vital signs: Vital Signs Temp 98.0 F 08/24/20 12:00 Pulse 108 H 08/24/20 12:00 Resp 39 H 08/24/20 12:00 BP 184/106 08/24/20 12:00 Pulse Ox 98 08/24/20 12:00 Intake & Output 08/23/20 08/24/20 08/24/20 18:59 06:59 18:59 Intake Total 3520 1801 1200 Output Total 900 940 500 Balance 2620 861 700 Weight 102.7 kg Intake: IV 2300 1801 1200 Cefepime 2 gm In Sodium 100 100 100 Chloride 0.9% 100 ml @ 25 mls/hr IVPB Q12HR [facility] Rx #:[id number] Sodium Chloride 0.9% 1, 1200 1200 600 000 ml @ 100 mls/hr IV . Q10H [facility] Rx#:[id number] Vancomycin 1,750 mg In 1000 501 500 Sodium Chloride 0.9% 500 ml 500 ml @ 167 mls/hr IVPB Q8H [facility] Rx#: [id number] Oral 1220 Output: Urine 900 940 500 Other: Voiding Method Urinal Urinal # Bowel Movements 1 - Exam GENERAL: The patient is alert and oriented x3, patient continues to be in mild respiratory distress. Anxious. Well developed, well nourished. HEENT: Pupils are round and equally reacting to light. EOMI. No scleral icterus. No conjunctival pallor. Normocephalic, atraumatic. No pharyngeal erythema. No thyromegaly. CARDIOVASCULAR: S1 and S2 present. No murmurs, rubs, or gallops. PULMONARY: Bilateral scattered rhonchi, no wheezing noted diminished air entry bilaterally worse on the right, tachypneic, BiPAP noted upon exam, 2 chest tubes noted on the right side, currently sitting upright laying on the left side ABDOMEN: Soft, nontender, nondistended, normoactive bowel sounds. No palpable organomegaly. MUSCULOSKELETAL: No joint swelling or deformity. EXTREMITIES: No cyanosis, clubbing, or pedal edema. NEUROLOGICAL: Gross neurological examination did not reveal any focal deficits. SKIN: No rashes. Note: Because of [place] [id number] isolation, some of the history and physical exam findings are indirect and obtained from nursing staff, and other physician examinations to avoid unnecessary contact with the patient. - Labs CBC & Chem 7: 08/24/20 05:34 08/24/20 05:34 Labs: Abnormal Lab Results - Last 24 Hours (Table) 08/23/20 08/23/20 08/24/20 Range/Units 16:59 20:23 05:34 Plt Count (150-450) k/uL PT (9.0-12.0) sec INR (<1.2) D-Dimer (<0.60) mg/L FEU Creatinine (0.66-1.25) mg/dL POC Glucose (mg/dL) 340 H 223 H (75-99) mg/dL Lactate Dehydrogenase (313-618) U/L C-Reactive Protein (<10.0) mg/L Procalcitonin 0.17 H (0.02-0.09) ng/mL 08/24/20 08/24/20 08/24/20 Range/Units 05:34 05:34 05:34 Plt Count 133 L (150-450) k/uL PT (9.0-12.0) sec INR (<1.2) D-Dimer 33.36 H (<0.60) mg/L FEU Creatinine 0.61 L (0.66-1.25) mg/dL POC Glucose (mg/dL) (75-99) mg/dL Lactate Dehydrogenase 1973 H (313-618) U/L C-Reactive Protein 132.8 H (<10.0) mg/L Procalcitonin (0.02-0.09) ng/mL 08/24/20 08/24/20 08/24/20 Range/Units 05:34 09:22 11:54 Plt Count (150-450) k/uL PT 12.1 H (9.0-12.0) sec INR 1.2 H (<1.2) D-Dimer (<0.60) mg/L FEU Creatinine (0.66-1.25) mg/dL POC Glucose (mg/dL) 170 H 116 H (75-99) mg/dL Lactate Dehydrogenase (313-618) U/L C-Reactive Protein (<10.0) mg/L Procalcitonin (0.02-0.09) ng/mL Assessment and Plan Assessment: -Covid 19 infection/pneumonia:continue with Decadron continue with respiratory support. infectious disease following. Patient currently on BiPAP. -Right side pneumothorax patient has 2 chest tubes on the right side, small stable left-sided pneumothorax. Cardiothoracic surgery following. Awaiting for interventional radiology to place a pigtail catheter once patient is able to tolerate lying flat for 1 hour. -Type 2 diabetes mellitus uncontrolled, to continue with oral antidiabetic along with long-acting and sliding scale at this time -mild hypovolemic hyponatremia, improved -Hypertension: -DVT prophylaxis with Lovenox -GI prophylaxis: Pepcid Plan: Continue current medications and continue to monitor closely. Patient currently in the ICU for close monitoring. Currently with 2 chest tubes on the right side with continued air leak and continued right pneumothorax noted on x-ray. Small left stable pneumothorax also noted and awaiting pigtail catheter placement with interventional radiology. Patient currently unable to travel to [place] due to respiratory status as patient is on a BiPAP with the 2 chest tubes. maintained on IV antibiotics in the form of cefepime and vancomycin and will continue at this time along with dexamethasone, and zinc supplements. Finished Remdesivir. Pulmonary and infectious disease also following. Discussed with pulmonary about the possibility of a transfer to a tertiary care center if unable to receive the pigtail catheter. Will continue to monitor vital signs and labs closely as blood sugars continue to be elevated. Prognosis is guarded. Further recommendations to follow.
--- NOTE | 2020-08-24 16:05 | XR ---
EXAMINATION TYPE: XR chest 1V portable DATE OF EXAM: 08/24/2020 COMPARISON: 08/24/2020 earlier exam INDICATION: Pneumothorax TECHNIQUE: Single frontal view of the chest is obtained. FINDINGS: The heart size is normal. The pulmonary vasculature is normal. Mild increased diffuse lung markings are through the bilateral lungs. There is bilateral apical pneumothorax. Left-sided may be slightly increased over the interval. The l arger right pneumothorax diminished over the interval and is less than 20%. The chest tube on the rig ht is been adjusted. The second chest tube remains present. Increasing subcutaneous emphysema is pres ent bilaterally. IMPRESSION: 1. Small residual right apical pneumothoraxa. This is diminished from comparison. 2. Mild increased left pneumothorax.
[2020-08-24 17:20] LABS: Glucose,Whole Blood 145 mg/dL (75-99)
[2020-08-24] MEDS: ENOXAPARIN 40 MG/0.4 ML SYRINGE SQ SCH (17:23)
[2020-08-24] MEDS: ASPIRIN 81 MG PO SCH (20:31)
[2020-08-24] MEDS: LORazepam 2 MG/ML INJ IV PRN (20:33)
[2020-08-24 20:43] LABS: Glucose,Whole Blood 199 mg/dL (75-99)
[2020-08-24] MEDS: INSULIN DETEMIR (LEVEMIR) 100 UNIT/ML SYR SQ SCH (21:05)
[2020-08-24] MEDS ORDERED: propofoL 100 ML IV ONE (22:50)
--- NOTE | 2020-08-24 22:53 | PN ---
PROGRESS NOTE DATE OF SERVICE: 08/24/2020 REASON FOR FOLLOWUP: Acute COVID-19 pneumonia. INTERVAL HISTORY: The patient is afebrile. The patient remains BiPAP-dependent. He is hemodynamically stable, not requiring any pressor support, though. Still complaining of shortness of breath, but no worsening. No worsening chest pain. No vomiting or diarrhea. PHYSICAL EXAMINATION: Blood pressure 138/77 with a pulse of 107, temperature 99.5. He is 97% on BiPAP. General description is a middle-aged male lying in bed in no distress. RESPIRATORY SYSTEM: Unlabored breathing with decreased breath sounds at the base. No wheeze. HEART: S1, S2. Regular rate and rhythm. ABDOMEN: Soft. No tenderness. LABS: CRP down to 132 but LDH is elevated. D-dimer is 33.36. DIAGNOSTIC IMPRESSION AND PLAN: Patient with acute COVID-19 pneumonia in this patient who did have a complication of the pneumothorax, status post chest tube x2. The patient has completed his remdesivir therapy, currently on dexamethasone. Lovenox dose can be adjusted up to 30 per day. I will the decision to Pulmonary on the case, with elevated currently broadly covered with cefepime and vancomycin; to continue, and we will monitor his clinical course closely. MMODL / IJN: [id number] /
--- NOTE | 2020-08-24 23:12 | XR ---
EXAMINATION TYPE: XR chest 1V DATE OF EXAM: 08/24/2020 COMPARISON: Today HISTORY: Respiratory failure TECHNIQUE: Single view FINDINGS: Endotracheal tube is 2.7 cm from the mauro. There is diffuse edema in the left lung. There is small left apical pneumothorax. There is subcutaneous air at the base of the neck. There is proba janna pneumomediastinum. There is right-sided chest tube with the tip at the right lung apex. I see no definite pneumothorax on the right side. There is some patchy infiltrate and atelectasis in the right lung. IMPRESSION: There is improvement in the bilateral pneumothoraces compared to exam 9 hours ago. There is probably pneumomediastinum. There is increased pulmonary airspace infiltrates and atelectasis in t he lungs compared to last exam.
[2020-08-24 23:56] LABS: ABG Base Excess -4.7 mmol/L; ABG HCO3 23 mmol/L (21-25); ABG Oxygen Saturation 87.9 % (94-97); ABG PCO2 58 mmHg (35-45); ABG PH 7.21 (7.35-7.45); ABG PO2 70 mmHg (83-108); ABG TCO2 25 mmol/L (19-24); Allen Test Performed? Yes
[2020-08-25] MEDS: VANCOMYCIN 1,750 MG in SODIUM CHLORIDE 0.9% 500 ML 500 ML IVPB SCH ×3 (03:47→21:32)
[2020-08-25 04:34] LABS: Basophils # (A) 0.2 k/uL (0-0.2); Basophils % (A) 1 %; Eosinophils % (A) 0 %; HCT 44.6 % (39.0-53.0); HGB 14.7 gm/dL (13.0-17.5); Lymphocytes # (A) 0.2 k/uL (1.0-4.8); Lymphocytes % (A) 1 %; MCH 28.9 pg (25.0-35.0); MCHC 33.1 g/dL (31.0-37.0); MCV 87.3 fL (80.0-100.0); Mean Platelet Volume 8.1; Monocytes # (A) 0.9 k/uL (0-1.0); Monocytes % (A) 3 %; Neutrophils # (A) 32.6 k/uL (1.3-7.7); Neutrophils % (A) 96 %; Platelet Count 128 k/uL (150-450); WBC 34.1 k/uL (3.8-10.6)
[2020-08-25 04:42] LABS: African American GFR (CKD) >90 (>60 ml/min/1.73 sqM); Anion Gap 7 mmol/L; Blood Urea Nitrogen 19 mg/dL (9-20); Calcium 7.1 mg/dL (8.4-10.2); Carbon Dioxide 24 mmol/L (22-30); Chloride 106 mmol/L (98-107); Glucose 184 mg/dL (74-99); Non-African American GFR(CKD) >90 (>60 ml/min/1.73 sqM); Sodium 137 mmol/L (137-145)
[2020-08-25 04:59] LABS: Potassium 4.7 mmol/L (3.5-5.1)
[2020-08-25 05:29] LABS: ABG Base Excess -0.8 mmol/L; ABG HCO3 27 mmol/L (21-25); ABG Oxygen Saturation 92.7 % (94-97); ABG PCO2 63 mmHg (35-45); ABG PH 7.23 (7.35-7.45); ABG PO2 85 mmHg (83-108); ABG TCO2 29 mmol/L (19-24); Allen Test Performed? Yes
[2020-08-25 06:11] LABS: Glucose,Whole Blood 172 mg/dL (75-99)
[2020-08-25] MEDS: INSULIN ASPART (NovoLOG) 100 UNIT/ML VIAL SQ SCH ×3 (06:17→18:03)
[2020-08-25] MEDS: SODIUM CHLORIDE 0.9% 1,000 ML IV SCH ×3 (08:13→21:33)
[2020-08-25] MEDS: LORazepam 2 MG/ML INJ IV PRN (08:13)
[2020-08-25] MEDS: HYDROmorphone 1 MG/ML 1 ML SYRINGE IVP PRN ×3 (08:14→23:30)
[2020-08-25] MEDS ORDERED: CISATRACURIUM 2 MG/ML 5 ML VIAL IV ONE (08:45)
--- NOTE | 2020-08-25 08:56 | P.PN ---
Subjective Progress Note Date: 08/25/20 Principal diagnosis: COVID 19 infection/pneumonia, right-sided pneumothorax, left-sided pneumothorax, acute hypoxic respiratory failure secondary to COVID 19 requiring intubation and mechanical ventilation. Previous medical history of insulin-dependent diabetes mellitus type 2, hypertension Status post right sided chest tube placement on 08/20/20 and 08/22/20 The patient is currently laying in bed in no acute distress. Had episode last night of confusion, took off his bipap, pulled at tubes and wires, including chest tubes. Placed back in bed and was able to be calmed down and bipap replaced but became unresponsive and apneic, was emergently intubated. Two right-sided chest tubes remain, suction was increased to -30 cm with improvement in right sided pneumothorax and decrease in air leak. Objective - Vital Signs Vital signs: Vital Signs Temp 98.5 F 08/25/20 06:24 Pulse 108 H 08/25/20 07:00 Resp 29 H 08/25/20 07:00 BP 130/67 08/25/20 07:00 Pulse Ox 95 08/25/20 07:00 Intake & Output 08/24/20 08/25/20 08/25/20 18:59 06:59 18:59 Intake Total 2800 1820.338 100 Output Total 800 840 70 Balance 2000 980.338 30 Weight 99.9 kg Intake: IV 2300 1701 100 Cefepime 2 gm In Sodium 100 100 Chloride 0.9% 100 ml @ 25 mls/hr IVPB Q12HR [facility] Rx #:[id number] Sodium Chloride 0.9% 1, 1200 1100 100 000 ml @ 100 mls/hr IV . Q10H [facility] Rx#:[id number] Vancomycin 1,750 mg In 1000 501 Sodium Chloride 0.9% 500 ml 500 ml @ 167 mls/hr IVPB Q8H [facility] Rx#: [id number] Intake, IV Titration 119.338 Amount propofoL 1,000 mg In 119.338 Empty Bag 1 bag @ Titrate IV .Q0M [facility] Rx#: [id number] Oral 500 Output: Urine 800 840 70 Other: Voiding Method Urinal Indwelling Catheter # Voids 1 - Constitutional General appearance: Present: no acute distress - Respiratory Details: Lungs sounds diminished throughout. Respirations are even on mechanical ventilation, current settings FiO2 100%, TV 500, RR 28 which is increased from [address] López, PEEP 8. 8.0 ETT present, 24 @ the lip. ABGs this AM 7.23/63/85/27/93%/-0.8 on FiO2 100% with 8 of PEEP before RR increased. Right pleural chest tubes remain in place to continuous wall suction, intermittent air leak is present. Draining minimal thin serosanguineous drainage. - Cardiovascular Details: S1, S2 present. Tachycardic but regular rate and rhythm, sinus tach on telemetry with heart rate in the low 100s. Palpable pulses bilaterally. No edema present. SCDs present. - Gastrointestinal Gastrointestinal Comment(s): Abdomen soft, non-tender, non-distended. Active bowel sounds present x 4 qu adrants. OGT present to LIS. - Genitourinary Genitourinary Comment(s): Hallman present draining dark cuong urine. Output 40-70 mL per hour overnight - Integumentary Integumentary Comment(s): Skin is warm and dry - Neurologic Neurologic Comment(s): unable to assess, patient is sedated on propofol, does withdraw to painful stimuli - Psychiatric Psychiatric Comment(s): sedated on propofol - Allied health notes Allied health notes reviewed: nursing - Labs CBC & Chem 7: 08/25/20 04:02 08/25/20 04:02 Labs: Abnormal Lab Results - Last 24 Hours (Table) 08/24/20 08/24/20 08/24/20 Range/Units 05:34 05:34 05:34 WBC (3.8-10.6) k/uL Plt Count 133 L (150-450) k/uL Neutrophils # (1.3-7.7) k/uL Lymphocytes # (1.0-4.8) k/uL PT 12.1 H (9.0-12.0) sec INR 1.2 H (<1.2) ABG pH (7.35-7.45) ABG pCO2 (35-45) mmHg ABG pO2 (83-108) mmHg ABG HCO3 (21-25) mmol/L ABG Total CO2 (19-24) mmol/L ABG O2 Saturation (94-97) % Creatinine (0.66-1.25) mg/dL Glucose (74-99) mg/dL POC Glucose (mg/dL) (75-99) mg/dL Calcium (8.4-10.2) mg/dL Procalcitonin 0.17 H (0.02-0.09) ng/mL 08/24/20 08/24/20 08/24/20 Range/Units 09:22 11:54 17:17 WBC (3.8-10.6) k/uL Plt Count (150-450) k/uL Neutrophils # (1.3-7.7) k/uL Lymphocytes # (1.0-4.8) k/uL PT (9.0-12.0) sec INR (<1.2) ABG pH (7.35-7.45) ABG pCO2 (35-45) mmHg ABG pO2 (83-108) mmHg ABG HCO3 (21-25) mmol/L ABG Total CO2 (19-24) mmol/L ABG O2 Saturation (94-97) % Creatinine (0.66-1.25) mg/dL Glucose (74-99) mg/dL POC Glucose (mg/dL) 170 H 116 H 145 H (75-99) mg/dL Calcium (8.4-10.2) mg/dL Procalcitonin (0.02-0.09) ng/mL 08/24/20 08/24/20 08/25/20 Range/Units 20:42 23:50 04:02 WBC (3.8-10.6) k/uL Plt Count (150-450) k/uL Neutrophils # (1.3-7.7) k/uL Lymphocytes # (1.0-4.8) k/uL PT (9.0-12.0) sec INR (<1.2) ABG pH 7.21 L (7.35-7.45) ABG pCO2 58 H (35-45) mmHg ABG pO2 70 L (83-108) mmHg ABG HCO3 (21-25) mmol/L ABG Total CO2 25 H (19-24) mmol/L ABG O2 Saturation 87.9 L (94-97) % Creatinine 0.63 L (0.66-1.25) mg/dL Glucose 184 H (74-99) mg/dL POC Glucose (mg/dL) 199 H (75-99) mg/dL Calcium 7.1 L (8.4-10.2) mg/dL Procalcitonin (0.02-0.09) ng/mL 08/25/20 08/25/20 08/25/20 Range/Units 04:02 05:21 06:10 WBC 34.1 H (3.8-10.6) k/uL Plt Count 128 L (150-450) k/uL Neutrophils # 32.6 H (1.3-7.7) k/uL Lymphocytes # 0.2 L (1.0-4.8) k/uL PT (9.0-12.0) sec INR (<1.2) ABG pH 7.23 L (7.35-7.45) ABG pCO2 63 H (35-45) mmHg ABG pO2 (83-108) mmHg ABG HCO3 27 H (21-25) mmol/L ABG Total CO2 29 H (19-24) mmol/L ABG O2 Saturation 92.7 L (94-97) % Creatinine (0.66-1.25) mg/dL Glucose (74-99) mg/dL POC Glucose (mg/dL) 172 H (75-99) mg/dL Calcium (8.4-10.2) mg/dL Procalcitonin (0.02-0.09) ng/mL - Imaging and Cardiology Chest x-ray: image reviewed Assessment and Plan Assessment: 1. COVID 19 infection/pneumonia 2. Right-sided pneumothorax status post right-sided thoracostomy tube placement x [address] López 3. Left sided pneumothorax 4. Acute hypoxic respiratory failure secondary to COVID 19, intubated and mechanically ventilated 5. Insulin-dependent diabetes mellitus type 2 6. History of hypertension Plan: 1. Continue right sided chest tubes to continuous wall suction at -30 cm. Monitor for resolution of pneumothorax, better today 2. Recommend monitoring of left pneumothorax which appears significantly less today. May need Thoravent if worsens 3. Wean from ventilator as tolerated. Management per Dr. López 4. Covid/pneumonia treatment per Dr. López and Dr. De Guzman 5. Continue to monitor daily CXR, inflammatory markers 6. GI/DVT prophylaxis 7. Medical management of other comorbidities per primary care service I have seen and examined the patient and agree with the assessment and plan as dictated by my nurse practitioner. Time with Patient: Greater than 30
[2020-08-25] MEDS: CISATRACURIUM 200 MG in SODIUM CHLORIDE 0.9% 180 ML IV SCH (08:57)
--- NOTE | 2020-08-25 09:06 | XR ---
EXAMINATION TYPE: XR chest 1V portable DATE OF EXAM: 08/25/2020 Comparison: 08/24/2020 Clinical History: 59-year-old male Tube placement Findings: ET tube is satisfactory. NG tube courses below the diaphragm. Right-sided chest tube in place. Subcut aneous emphysema along the right side of the chest has decreased but now apparent is a trace right ap ical pneumothorax measuring 5 mm. Airspace opacity, left greater than right. Slowly improving. Heart borderline in size. Impression: 1. Trace right apical pneumothorax now appreciated measuring 5 mm with a right-sided chest tube in pl teressa. 2. Bilateral diffuse airspace disease, left greater than right show slight improvement.
[2020-08-25] MEDS: CEFEPIME 2 GM in SODIUM CHLORIDE 0.9% 100 ML IVPB SCH ×2 (09:14→21:31)
[2020-08-25] MEDS: ENOXAPARIN 40 MG/0.4 ML SYRINGE SQ SCH ×2 (09:14→21:31)
[2020-08-25] MEDS: DEXAMETHASONE SOD PHOSPHATE 10 MG/ML 1 ML VIAL IV SCH (09:14)
[2020-08-25] MEDS: ASCORBIC ACID 500 MG TAB PO SCH (09:14)
[2020-08-25] MEDS: FAMOTIDINE 20 MG TAB PO SCH ×2 (09:14→21:32)
[2020-08-25] MEDS: lisinopriL 10 MG TAB PO SCH (09:15)
[2020-08-25] MEDS: ZINC SULFATE 220 MG CAP PO SCH (09:17)
--- NOTE | 2020-08-25 10:15 | P.PN ---
Subjective Progress Note Date: 08/25/20 (Critical care time 35 minutes excluding procedures) Principal diagnosis: Right spontaneous pneumothorax status post 2 chest tubes Pneumomediastinum Left spontaneous pneumothorax Acute hypoxic respiratory failure Covid 19 pneumonia Type 2 diabetes mellitus Hypertension hypertensive cardiovascular disease Dehydration hypovolemia and hyponatremia Depression 08/25/2020, patient seen eval examined during the rounds labs reviewed medications reviewed care plan discussed with the staff, patient had a respiratory arrest earlier this morning during which he pulled out his BiPAP machine oxygen saturation dropped down into 20s, he also tried to pull out his chest tube, during that process he was intubated, postintubation chest x-ray shows minimal pneumothorax on the right side left-sided pneumothorax or anterior posterior cannot be excluded, extensive pneumomediastinum is present, patient currently and placed on the propofol at 75 mics was very restless and agitated, tachypneic tachycardic and eventually medically paralyzed with Nimbex drip, respiratory status slightly more stable patient is more calm and now hemodynamics stable, has been getting IV fluids, will need a chest tube on the the left side to avoid tension pneumothorax, keep the 2 chest tube on the right side 1 direct towards the apex appears to be stable however one at the base of the lung is still in, dense bilateral infiltrate are present, white cell count is up to 34,000, arterial blood gas and chest x-ray reviewed consistent with respiratory and metabolic acidosis, with severe hypoxia requiring PEEP with high ventilatory rate 08/24/2020, patient seen eval examined during the rounds labs reviewed medications reviewed sitting upright on the bed, remains on BiPAP with 100% oxygen, saturation 95%, patient desaturated into goes on the right side down and intermittently during supine posture, however do better with left side up, and sitting up as well, chest x-ray from today reviewed pneumothorax recurred on the right side in spite of 2 chest tube aiming towards the apex and the base with significant air leak, small left apical pneumothorax however is stable, patient is awaiting evaluation from thoracic surgery for possible VATS or transfer to tertiary care center, left side and INR will put a small bore pigtail catheter at the apex later on this morning, patient remains afebrile slightly tachycardic tachypneic, inflammatory parameters still up, prognosis is guarded care plan discussed directly and indirectly with primary service, staff, cardiothoracic and IR 08/23/2020, patient seen eval reexamined during the rounds labs reviewed medications reviewed, oxygen saturation remained stable, however patient couldn't tolerate off of BiPAP, he remains on BiPAP. All, chest x-ray reviewed, patient hasn't to right-sided chest tube air leak is present from both, left-sided residual small pneumothorax present along with subcutaneous emphysema and mediastinal emphysema, interventional radiology could not do a chest tube on the left side, they are planning to do it tomorrow, white cell count decreased to 19,000, d-dimer is still elevated inflammatory parameters elevated consistent with cytokine nita 08/22/2020, patient seen eval reexamined significant desaturation was more noted, sats dropped down to 55-70% spontaneously comes right back up though currently on 93% BiPAP, Semiprone with the right side up patient cannot tolerate airvo, desaturated easily remains tachypneic tachycardic hemodynamic status however remains stable, chest x-ray findings reviewed in spite of right-sided chest tube and persistent air leak there is a persistent spontaneous pneumothorax fairly large on the right side and small apical left sided spontaneous pneumothorax noted with pneumomediastinum and bilateral dense infiltrate at the bases, thoracic surgery has been consulted, patient may need an another chest tube on the right side versus VATS and preferably and of the small chest U was on the left side, will defer to expertise of thoracic surgery, labs reviewed medications reviewed care plan discussed at length with the staff 08/21/2020, patient seen eval examined during the rounds sitting upright in chair breathing slightly better oxygen saturation is 87-88%, patient is on high flow oxygen along with the nonrebreather mass, tachypneic tachycardic blood pressure is slightly high, patient has a right-sided chest tube is still leaking air, chest x-ray reviewed bilateral infiltrate is present with residual pneumothorax and subcu emphysema, labs from today reviewed white cell count remains elevated 20,000, renal functions stable, will attempt semi-prone with right side up, we will obtain an transfuse convalescent plasma 08/20/2020, patient seen eval examined during the rounds a labs reviewed medications reviewed this morning patient had problems with agitated anxiety and a prehension, oxygen saturation dropped down into 70s, rapid response was called and stat chest x-ray revealed presence of pneumothorax which is significant on the right side as well they may be a small mediastinal emphysema on the left side as well, patient has been made semi-prone with that oxygen saturation 100% nonrebreather mask improved to 92% patient is more calm, he remains afebrile temperature is 98.3 respiratory rate and mid to high 20s, weight is oxygen saturation 94%, chest x-ray finding reviewed 08/19/2020, patient seen eval examined during the rounds labs reviewed medi cations reviewed care plan discussed, patient is sitting upright on the bed on 100% nonrebreather mask, saturation remains marginal about 88%, remains afebrile, slightly anxious, advised based he hasn't to be on prone position as much as possible, labs reviewed white cell count is 17,000, patient remains on Remdesivir, Decadron, Lovenox August 18 2020, patient seen eval examined during the rounds is still on 5 L high flow oxygen, denies any chest pain breathing difficulties present, denies any cough or sputum production labs chest x-ray reviewed This is a 59-year-old male who has history of diabetes hypertension hypertensive cardiovascular disease and not feeling well for the last 5-6 days with cough and increased shortness of breath started with a sore throat, patient admitted into the hospital was spiking fever up to 101, oxygen saturation 90%, patient already has been started on REM doesn't wear and Decadron, his initial admit x-ray cystoscopy right midlung field and left lower lid feeding infiltrate patient gradually got worse initially has been on room air oxygen requirement keep on going up to 3 L and subsequently on 5 L high flow oxygen with that oxygen saturation is 93%, critical care time spent 35 minutes Objective - Vital Signs Vital signs: Vital Signs Temp 98.5 F 08/25/20 06:24 Pulse 108 H 08/25/20 07:00 Resp 29 H 08/25/20 07:00 BP 130/67 08/25/20 07:00 Pulse Ox 95 08/25/20 07:00 Intake & Output 08/24/20 08/25/20 08/25/20 18:59 06:59 18:59 Intake Total 2800 1820.338 200 Output Total 800 840 70 Balance 1999 980.338 130 Weight 99.9 kg Intake: IV 2300 1701 100 Cefepime 2 gm In Sodium 100 100 Chloride 0.9% 100 ml @ 25 mls/hr IVPB Q12HR [facility] Rx #:[id number] Sodium Chloride 0.9% 1, 1200 1100 100 000 ml @ 100 mls/hr IV . Q10H [facility] Rx#:[id number] Vancomycin 1,750 mg In 1000 501 Sodium Chloride 0.9% 500 ml 500 ml @ 167 mls/hr IVPB Q8H [facility] Rx#: [id number] Intake, IV Titration 119.338 100 Amount propofoL 1,000 mg In 119.338 100 Empty Bag 1 bag @ Titrate IV .Q0M [facility] Rx#: [id number] Oral 500 Output: Urine 800 840 70 Other: Voiding Method Urinal Indwelling Catheter # Voids 1 - Exam - Constitutional General appearance: Intubated medically paralyzed on full ventilator support - EENT Eyes: EOMI, PERRLA Ears: bilateral: normal - Neck Neck: normal ROM Carotids: bilateral: upstroke normal Thyroid: bilateral: normal size - Respiratory Respiratory: bilateral: diminished - Cardiovascular Rhythm: regular Heart sounds: normal: S1, S2 - Gastrointestinal General gastrointestinal: normal bowel sounds - Neurologic Neurologic: CNII-XII intact - Musculoskeletal Musculoskeletal: gait normal, generalized weakness, strength equal bilaterally - Psychiatric Psychiatric: Appears, now post medical paralysis - Labs CBC & Chem 7: 08/25/20 04:02 08/25/20 04:02 Labs: Abnormal Lab Results - Last 24 Hours (Table) 08/24/20 08/24/20 08/24/20 Range/Units 05:34 11:54 17:17 WBC (3.8-10.6) k/uL Plt Count (150-450) k/uL Neutrophils # (1.3-7.7) k/uL Lymphocytes # (1.0-4.8) k/uL ABG pH (7.35-7.45) ABG pCO2 (35-45) mmHg ABG pO2 (83-108) mmHg ABG HCO3 (21-25) mmol/L ABG Total CO2 (19-24) mmol/L ABG O2 Saturation (94-97) % Creatinine (0.66-1.25) mg/dL Glucose (74-99) mg/dL POC Glucose (mg/dL) 116 H 145 H (75-99) mg/dL Calcium (8.4-10.2) mg/dL Procalcitonin 0.17 H (0.02-0.09) ng/mL 08/24/20 08/24/20 08/25/20 Range/Units 20:42 23:50 04:02 WBC (3.8-10.6) k/uL Plt Count (150-450) k/uL Neutrophils # (1.3-7.7) k/uL Lymphocytes # (1.0-4.8) k/uL ABG pH 7.21 L (7.35-7.45) ABG pCO2 58 H (35-45) mmHg ABG pO2 70 L (83-108) mmHg ABG HCO3 (21-25) mmol/L ABG Total CO2 25 H (19-24) mmol/L ABG O2 Saturation 87.9 L (94-97) % Creatinine 0.63 L (0.66-1.25) mg/dL Glucose 184 H (74-99) mg/dL POC Glucose (mg/dL) 199 H (75-99) mg/dL Calcium 7.1 L (8.4-10.2) mg/dL Procalcitonin (0.02-0.09) ng/mL 08/25/20 08/25/20 08/25/20 Range/Units 04:02 05:21 06:10 WBC 34.1 H (3.8-10.6) k/uL Plt Count 128 L (150-450) k/uL Neutrophils # 32.6 H (1.3-7.7) k/uL Lymphocytes # 0.2 L (1.0-4.8) k/uL ABG pH 7.23 L (7.35-7.45) ABG pCO2 63 H (35-45) mmHg ABG pO2 (83-108) mmHg ABG HCO3 27 H (21-25) mmol/L ABG Total CO2 29 H (19-24) mmol/L ABG O2 Saturation 92.7 L (94-97) % Creatinine (0.66-1.25) mg/dL Glucose (74-99) mg/dL POC Glucose (mg/dL) 172 H (75-99) mg/dL Calcium (8.4-10.2) mg/dL Procalcitonin (0.02-0.09) ng/mL Microbiology - Last 24 Hours (Table) 08/25/20 04:14 Sputum Culture - Preliminary Sputum Assessment and Plan Assessment: Status post respiratory arrest patient intubated Right spontaneous pneumothorax in spite of right-sided double chest tube persistent air leak and pneumothorax is present, cardiothoracic following Anterior posterior pneumothorax on the left side cannot be excluded Extensive Pneumomediastinum Left spontaneous pneumothorax, will put a small bore chest tube to avoid tension pneumothorax Acute hypoxic respiratory failure Covid 19 pneumonia Type 2 diabetes mellitus Hypertension hypertensive cardiovascular disease Dehydration hypovolemia and hyponatremia Depression Overall prognosis is very poor Plan: Chest tube assessment and plan for bilateral pneumothoraces and pneumomediastinum as above Continue antihypertensive agent from home Continue to follow sugars closely Chest tube to 20 cm water suction is still have significant air leak from both chest tube Ventilator adjustment as needed Status post Convalescent plasma Agree with supplemental oxygen and nonrebreather mask may need BiPAP as needed O follow closely Prone positioning as much as 16 hour a day either continuous or intermittent Deep breathing exercise incentive spirometry Increase activity as tolerated Continue Decadron and IV Remdesivir for 10 and 5 days respectively Further plan of care as per clinical response of the patient, overall prognosis is guarded Time with Patient: Greater than 30
[2020-08-25] MEDS ORDERED: LIDOCAINE 1% INJ 10MG/ML (20 ML MDV) ONE (10:59)
--- NOTE | 2020-08-25 11:34 | P.PCN ---
Date of Procedure: 08/25/20 Preoperative Diagnosis: Left pneumothorax Postoperative Diagnosis: As above with pneumomediastinum impending tension pneumothorax Procedure(s) Performed: Left chest tube placement Anesthesia: local Surgeon: Jean-Pierre López Estimated Blood Loss (ml): 1 Condition: critical Disposition: ICU Indications for Procedure: Left large anterior pneumothorax Operative Findings: As below Description of Procedure: Patient prepared and draped usual fashion, area fourth intercostal space midclavicular line thoroughly cleaned one percent lidocaine 10 mL infiltrated 1 inch incision horizontal was placed followed by blunt dissection to intercostal muscles, dry syringe was utilized to confirm presence of pneumothorax into the pleural space air was aspirated, pleural cavity accessed by puncturing the parietal pleura 24-[place] chest tube passed trocar withdrawn tube positioned anterior medially air leak and bubbles were noted in Pleurx, saturation improved from 8486% to 92% during the procedure, chest tube secured with number 1 silk, Vaseline gauze applied dry dressing applied, post procedure chest x-ray reviewed good position of chest tube, patient tolerated well no complication noted
--- NOTE | 2020-08-25 11:42 | XR ---
EXAMINATION TYPE: XR chest 1V portable DATE OF EXAM: 08/25/2020 Comparison: Earlier today Clinical History: 59-year-old female post chest tube insertion Findings: ET tube at the level of the medial clavicular heads. NG tube courses below the diaphragm. Residual cu taneous emphysema at the upper right hemithorax. Heart upper limits of normal in size. Bilateral patc hy confluent airspace opacities, left greater than right, worsening on the left side now. New left-si ded chest tube. There is a small left apical pneumothorax now visualized measuring 1.3 cm. Right apic al pneumothorax slightly smaller at 3 mm versus 5 mm, previously. 2 chest tubes remain on the right. Impression: 1. Placement of left-sided chest tube. A small 1.3 cm left apical pneumothorax is now seen. 2. Right-sided chest tube in place. Trace right apical pneumothorax slightly smaller at 3 mm versus 5 mm, previously. 3. Bilateral airspace disease continues, left greater than right, slightly worsened on the left.
[2020-08-25 12:07] LABS: Glucose,Whole Blood 225 mg/dL (75-99)
--- NOTE | 2020-08-25 14:07 | P.PN ---
Subjective Progress Note Date: 08/25/20 53-year-old male is admitted for Covid19 pneumonitis, sepsis. Patient went into hypoxemia last night ended up on 3 L of oxygen.overall feeling little bit better. 08/17/2020 Patient's is pretty status is worse and patient is not doing well in spite of high flow nasal cannula oxygen along with 100% many mask. Patient is being started on Remdesivir. Patient is still complaining of shortness of breath Constitutional: Denied any fatigue denied any fever. Cardio vascular: denied any chest pain, palpitations Gastrointestinal denied any nausea vomiting Pulmonary: As mentioned above Neurologic denied any new focal deficits All inpatient medications were reviewed and appropriate changes in these medic ations as dictated in the interval history and assessment and plan. 08/18/2020 Patient is seen and evaluated in follow-up and continues to be maintained on high flow oxygen via nasal cannula. Infectious disease is following. Patient continues to have shortness of breath especially with exertion. Discussed with the patient about increasing activity and getting up to the commode and chair. Patient states he feels slightly better today although continues to be extremely dyspneic. Review of systems: Constitutional: No reports of fatigue, fever, or chills Cardiovascular: No reports of chest pain or palpitations Respiratory: Reports shortness of breath with occasional cough GI: No reports of nausea, vomiting, or diarrhea : No reports of dysuria or retention Neurovascular: No reports of weakness or numbness All medications have been reviewed 08/19/2020 Patient is seen and evaluated in follow-up with no real improvement of respiratory status. Patient continues to sat in the low 80s and drops quickly without oxygen. He she is currently maintained on 15 L high flow oxygen along w ith a nonrebreather over that and was able to obtain 90% oxygen saturation. Patient is currently sitting up at the bedside asking when he can go home. Discussed with the patient at length about respiratory status and his inability to come off oxygen at this time. White blood count elevated at 17.9 from yesterday. BMP within normal limits although blood glucose levels continue to be elevated. Patient is maintained on sliding scale along with long-acting and oral antidiabetic medications. Will continue to monitor as the dexamethasone may be a component of elevated glucose levels. Discussed with the patient about incentive spirometer and instructed to use at least 10 times every hour while awake. Patient currently denies any chest pain or palpitations. Patient is afebrile. No reports of nausea or vomiting patient states he does not have much of an appetite although is tolerating diet. 08/20/2020 Patient is seen in follow-up and continues to be on a nonrebreather and 15 L high flow oxygen and was found to be extremely anxious and hypoxic with saturations in the 70s earlier this morning Repeat chest x-ray done today shows right side pneumothorax along with pneumo mediastinum, subcutaneous emphysema. Pulmonary Dr. López is following and will be placing a chest tube this afternoon. Lovenox dose will be adjusted once chest tube is placed. White blood count elevated at 20.7. D-dimer was found to be 13.05. Review of systems: Constitutional: Anxious, no reports of fever, or chills Cardiovascular: No reports of chest pain or palpitations Respiratory: reports worsening shortness of breath and difficulty breathing GI: No reports of nausea, vomiting, or diarrhea : No reports of dysuria or retention Neurovascular: No reports of weakness or numbness All medications have been reviewed 08/21/2020 Patient is seen and evaluated and follow-up currently remains in the ICU as patient underwent right chest tube placement with Dr. López yesterday due to right pneumothorax with pneumomediastinum and subcutaneous emphysema. Patient is currently sitting up in the chair and on a nonrebreather and high flow oxygen at flow rate of 60% with an FiO2 of 85%. Patient is currently at 89% oxygen saturation. Patient is also receiving a unit of fresh frozen plasma and is maintained on Lovenox. Blood sugars continue to be elevated and will continue to monitor with long-acting along with sliding scale. White Blood count 20.2. Chest x-ray this morning shows a stable right pneumothorax with right-sided chest tube noted and stable subcutaneous emphysema. Patient instructed to continue with incentive spirometer and semi-prone position with the right side up. Patient is somewhat anxious and agitated with remaining hospitalized. No reports of chest pain or palpitations. Denies any nausea or vomiting and is tolerating diet. Patient is currently afebrile. 08/22/2020 Patient has 2 chest tubes on the right side. Patient remains on airvo, there was a persistent leak in the previous chest tube. 08/23/2020 Patient the has bilateral pneumothorax right side has 2 chest tubes attached to wall suction and left-sided pneumothorax is 10-15% which is being monitored, cardiothoracic surgery evaluated the patient. Patient is presently on Bipap. Review of systems: Unable to obtain due to his clinical condition did All inpatient medications were reviewed and appropriate changes in these medications as dictated in the interval history and assessment and plan. 08/24/2020 Patient currently remains on a BiPAP and has 2 right-sided chest tubes and awaiting for possible pigtail once more stabilized. Patient is currently unable to tolerate travel to [place] for interventional radiology to place the catheter. Chest x-ray today shows a moderate size recurrence of the right pneumothorax along with a small left apical pneumo that appears to be stable along with diffuse patchy infiltrates within bilateral lung ulloa. Pulmonary following closely. Discussed with pulmonary about the possibility of a transfer to a tertiary care center if patient's clinical status continues to deteriorate and unable to obtain the left side pigtail catheter. Remains in the ICU with close monitoring. Patient continues on IV antibiotics in the form of cefepime and vancomycin along with zinc, Lovenox, and dexamethasone. Review of systems: Constitutional: Reports fatigue, anxious, no reports of fever, or chills Cardiovascular: No reports of chest pain or palpitations Respiratory: Reports continued shortness of breath and cough GI: No reports of nausea, vomiting, or diarrhea : No reports of dysuria or retention Neurovascular: Reports weakness, no reports of numbness All medications have been reviewed 08/25/2020 Patient is seen and evaluated in follow-up and continues to be closely monitored in the ICU. Patient had a brief period Of respiratory arrest with attempts to pull out chest tubes after removing the BiPAP and was ultimately intubated. Patient was placed on sedation and appears much more calm at this time. Patient currently awaiting to receive a left side chest tube for the small pneumothorax with pulmonary. Patient continues to have 2 right-sided chest tubes at this time. White blood count elevated at 34.1 and patient remains on cefepime and vancomycin. Per nursing staff CODE STATUS was discussed with and will be readdressed after the chest tube placement procedure. Prognosis is extremely guarded and poor at this time. Review of systems: Unable to assess as patient is currently intubated and sedated. Objective - Vital Signs Vital signs: Vital Signs Temp 98.5 F 08/25/20 06:24 Pulse 108 H 08/25/20 07:00 Resp 29 H 08/25/20 07:00 BP 130/67 08/25/20 07:00 Pulse Ox 95 08/25/20 07:00 Intake & Output 08/24/20 08/25/20 08/25/20 18:59 06:59 18:59 Intake Total 2800 1820.338 300 Output Total 800 840 70 Balance 2000 980.338 230 Weight 99.9 kg Intake: IV 2300 1701 100 Cefepime 2 gm In Sodium 100 100 Chloride 0.9% 100 ml @ 25 mls/hr IVPB Q12HR [facility] Rx #:[id number] Sodium Chloride 0.9% 1, 1200 1100 100 000 ml @ 100 mls/hr IV . Q10H [facility] Rx#:[id number] Vancomycin 1,750 mg In 1000 501 Sodium Chloride 0.9% 500 ml 500 ml @ 167 mls/hr IVPB Q8H [facility] Rx#: [id number] Intake, IV Titration 119.338 200 Amount propofoL 1,000 mg In 119.338 200 Empty Bag 1 bag @ Titrate IV .Q0M [facility] Rx#: [id number] Oral 500 Output: Urine 800 840 70 Other: Voiding Method Urinal Indwelling Catheter # Voids 1 - Exam GENERAL: The patient is intubated and sedated and appears to be in no acute distress. HEENT: Pupils are round and equally reacting to light. EOMI. No scleral icterus. No conjunctival pallor. Normocephalic, atraumatic. No pharyngeal erythema. No thyromegaly. ET tube noted CARDIOVASCULAR: S1 and S2 present. No murmurs, rubs, or gallops. PULMONARY: Bilateral scattered rhonchi, no wheezing noted diminished air entry bilaterally worse on the right, tachypneic, 2 chest tubes noted on the right side ABDOMEN: Soft, nontender, nondistended, normoactive bowel sounds. No palpable organomegaly. MUSCULOSKELETAL: No joint swelling or deformity. EXTREMITIES: No cyanosis, clubbing, or pedal edema. NEUROLOGICAL: Unable to fully assess as patient is intubated and sedated SKIN: No rashes. Note: Because of COVID 19 isolation, some of the history and physical exam findings are indirect and obtained from nursing staff, and other physician examinations to avoid unnecessary contact with the patient. - Labs CBC & Chem 7: 08/25/20 04:02 08/25/20 04:02 Labs: Abnormal Lab Results - Last 24 Hours (Table) 08/24/20 08/24/20 08/24/20 Range/Units 05:34 11:54 17:17 WBC (3.8-10.6) k/uL Plt Count (150-450) k/uL Neutrophils # (1.3-7.7) k/uL Lymphocytes # (1.0-4.8) k/uL ABG pH (7.35-7.45) ABG pCO2 (35-45) mmHg ABG pO2 (83-108) mmHg ABG HCO3 (21-25) mmol/L ABG Total CO2 (19-24) mmol/L ABG O2 Saturation (94-97) % Creatinine (0.66-1.25) mg/dL Glucose (74-99) mg/dL POC Glucose (mg/dL) 116 H 145 H (75-99) mg/dL Calcium (8.4-10.2) mg/dL Procalcitonin 0.17 H (0.02-0.09) ng/mL 08/24/20 08/24/20 08/25/20 Range/Units 20:42 23:50 04:02 WBC (3.8-10.6) k/uL Plt Count (150-450) k/uL Neutrophils # (1.3-7.7) k/uL Lymphocytes # (1.0-4.8) k/uL ABG pH 7.21 L (7.35-7.45) ABG pCO2 58 H (35-45) mmHg ABG pO2 70 L (83-108) mmHg ABG HCO3 (21-25) mmol/L ABG Total CO2 25 H (19-24) mmol/L ABG O2 Saturation 87.9 L (94-97) % Creatinine 0.63 L (0.66-1.25) mg/dL Glucose 184 H (74-99) mg/dL POC Glucose (mg/dL) 199 H (75-99) mg/dL Calcium 7.1 L (8.4-10.2) mg/dL Procalcitonin (0.02-0.09) ng/mL 08/25/20 08/25/20 08/25/20 Range/Units 04:02 05:21 06:10 WBC 34.1 H (3.8-10.6) k/uL Plt Count 128 L (150-450) k/uL Neutrophils # 32.6 H (1.3-7.7) k/uL Lymphocytes # 0.2 L (1.0-4.8) k/uL ABG pH 7.23 L (7.35-7.45) ABG pCO2 63 H (35-45) mmHg ABG pO2 (83-108) mmHg ABG HCO3 27 H (21-25) mmol/L ABG Total CO2 29 H (19-24) mmol/L ABG O2 Saturation 92.7 L (94-97) % Creatinine (0.66-1.25) mg/dL Glucose (74-99) mg/dL POC Glucose (mg/dL) 172 H (75-99) mg/dL Calcium (8.4-10.2) mg/dL Procalcitonin (0.02-0.09) ng/mL Microbiology - Last 24 Hours (Table) 08/25/20 04:14 Sputum Culture - Preliminary Sputum Assessment and Plan Assessment: -Covid 19 infection/pneumonia:continue with Decadron continue with respiratory support. infectious disease following. Patient was intubated last night -Acute respiratory arrest with hypoxia, patient removed BiPAP and attempted to remove chest tubes and was intubated -Right side pneumothorax patient has 2 chest tubes on the right side, small stable left-sided pneumothorax. Awaiting to receive a chest tube on the left with pulmonary to prevent tension -Type 2 diabetes mellitus uncontrolled, continue on long-acting along with sliding scale. -mild hypovolemic hyponatremia, improved -Hypertension: -DVT prophylaxis with Lovenox -GI prophylaxis: Pepcid Plan: Continue current medications and continue to monitor closely. Patient currently in the ICU for close monitoring. Currently with 2 chest tubes on the right side with continued air leak and continued right pneumothorax noted on x-ray. Patient is currently now intubated and awaiting to receive a chest tube on the left for small pneumothorax with pulmonary. Maintained on IV antibiotics in the form of cefepime and vancomycin and will continue at this time along with dexamethasone, and zinc supplements. Finished Remdesivir. Pulmonary and infectious disease also following. Prognosis is extremely guarded and poor and will need to discuss CODE STATUS with family. Will continue to monitor vital signs and labs closely. Further recommendations to follow area did
[2020-08-25 17:57] LABS: Glucose,Whole Blood 197 mg/dL (75-99)
[2020-08-25] MEDS: CHLORHEXIDINE GLUCONATE 15 ML CUP MUCOUS MEM SCH (21:32)
[2020-08-25] MEDS: ASPIRIN 81 MG PO SCH (21:32)
[2020-08-25] MEDS: INSULIN DETEMIR (LEVEMIR) 100 UNIT/ML SYR SQ SCH (21:32)
--- NOTE | 2020-08-25 22:16 | PN ---
PROGRESS NOTE DATE OF SERVICE: 08/25/2020 REASON FOR FOLLOWUP: Acute COVID-19 pneumonia. INTERVAL HISTORY: The patient went into respiratory distress last night, pulled off his tubes, ended up getting intubated. He is currently on 100% FiO2. No significant purulent secretions in the ET have been reported or any diarrhea. PHYSICAL EXAMINATION: Blood pressure 117/64, pulse of 99, temperature 98. He is 91% on 100% FiO2. General description is a middle-aged male, intubated on the vent. RESPIRATORY SYSTEM: Unlabored breathing with decreased breath sounds at the base. No wheeze. HEART: S1, S2. Regular rate and rhythm. ABDOMEN: Soft. No tenderness. LABS/IMAGING: Hemoglobin is 14.6, white count 24.1. BUN of 19, creatinine 0.63. Sputum was obtained, currently pending. Blood culture has been negative. Chest x-ray: Bilateral airspace disease continues. DIAGNOSTIC IMPRESSION AND PLAN: Patient with acute respiratory failure which is likely multifactorial in this patient with acute COVID-19 pneumonia complicated by development of pneumothorax bilaterally with two chest tubes on the right and one on the left side. The patient is currently on the vent. The patient has completed his 5-day course of remdesivir. He is on dexamethasone and Lovenox, which was adjusted to twice a day related to D-dimer and is covered with empiric antibiotic vancomycin and cefepime; to continue. Sputum has been ordered and collected. Will adjust antibiotic further if needed. Overall prognosis remains guarded. MMODL / IJN: [id number] /
[2020-08-25 23:36] LABS: Glucose,Whole Blood 233 mg/dL (75-99)
[2020-08-26] MEDS: INSULIN ASPART (NovoLOG) 100 UNIT/ML VIAL SQ SCH ×4 (00:30→17:39)
[2020-08-26] MEDS: HYDROmorphone 1 MG/ML 1 ML SYRINGE IVP PRN (04:12)
[2020-08-26] MEDS: VANCOMYCIN 1,750 MG in SODIUM CHLORIDE 0.9% 500 ML 500 ML IVPB SCH (04:13)
[2020-08-26 04:41] LABS: Basophils # (A) 0.2 k/uL (0-0.2); Basophils % (A) 1 %; Eosinophils % (A) 0 %; HCT 45.1 % (39.0-53.0); HGB 14.6 gm/dL (13.0-17.5); Hypochromasia Slight; Lymphocytes # (A) 0.1 k/uL (1.0-4.8); Lymphocytes % (A) 0 %; MCH 29.2 pg (25.0-35.0); MCHC 32.5 g/dL (31.0-37.0); MCV 89.8 fL (80.0-100.0); Mean Platelet Volume 8.2; Monocytes # (A) 0.8 k/uL (0-1.0); Monocytes % (A) 2 %; Neutrophils # (A) 31.3 k/uL (1.3-7.7); Neutrophils % (A) 96 %; Platelet Count 145 k/uL (150-450); Poikilocytosis Slight; RBC 5.02 m/uL (4.30-5.90); RDW 14.5 % (11.5-15.5); WBC 32.5 k/uL (3.8-10.6)
[2020-08-26 05:16] LABS: Albumin 2.5 g/dL (3.5-5.0); Calcium 7.2 mg/dL (8.4-10.2); Potassium 5.4 mmol/L (3.5-5.1); Total Bilirubin 0.8 mg/dL (0.2-1.3); Total Protein 5.4 g/dL (6.3-8.2)
[2020-08-26 05:23] LABS: D-Dimer 12.39 mg/L FEU (<0.60)
[2020-08-26 05:35] LABS: ABG Base Excess -4.8 mmol/L; ABG HCO3 24 mmol/L (21-25); ABG PCO2 67 mmHg (35-45); ABG TCO2 26 mmol/L (19-24); Allen Test Performed? Yes
[2020-08-26 05:36] LABS: ABG PH 7.16 (7.35-7.45)
[2020-08-26 05:37] LABS: ABG PO2 56 mmHg (83-108)
[2020-08-26 05:42] LABS: C Reactive Protein 176.4 mg/L (<10.0)
[2020-08-26] MEDS: SODIUM CHLORIDE 0.9% 1,000 ML IV SCH ×2 (05:52→19:49)
[2020-08-26 06:18] LABS: Anisocytosis (M) Present
[2020-08-26 06:20] LABS: Polychromasia Present
--- NOTE | 2020-08-26 06:58 | XR ---
EXAMINATION TYPE: XR chest 1V portable DATE OF EXAM: 08/26/2020 COMPARISON: 08/25/2020 HISTORY: SOB, Follow Up FINDINGS: Indwelling tubes and catheters are unchanged. No visible pneumothorax at this time. Diffuse bilateral airspace infiltrates are unchanged. Stable appearance of the cardio-mediastinal structures at this time. Pleural effusion unchanged. IMPRESSION: 1. No visible pneumothoraces identified at this time. Stable diffuse airspace infiltrates. Clinical c orrelation and follow up until resolution is recommended.
[2020-08-26] MEDS: CEFEPIME 2 GM in SODIUM CHLORIDE 0.9% 100 ML IVPB SCH ×2 (08:36→19:47)
[2020-08-26] MEDS: CISATRACURIUM 200 MG in SODIUM CHLORIDE 0.9% 180 ML IV SCH (08:36)
[2020-08-26] MEDS: FAMOTIDINE 20 MG TAB PO SCH ×2 (08:37→19:47)
[2020-08-26] MEDS: ZINC SULFATE 220 MG CAP PO SCH (08:37)
[2020-08-26] MEDS: lisinopriL 10 MG TAB PO SCH (08:37)
[2020-08-26] MEDS: DEXAMETHASONE SOD PHOSPHATE 10 MG/ML 1 ML VIAL IV SCH (08:37)
[2020-08-26] MEDS: ENOXAPARIN 40 MG/0.4 ML SYRINGE SQ SCH ×2 (08:37→19:47)
[2020-08-26] MEDS: CHLORHEXIDINE GLUCONATE 15 ML CUP MUCOUS MEM SCH ×2 (08:37→19:47)
[2020-08-26] MEDS: ASCORBIC ACID 500 MG TAB PO SCH (08:38)
[2020-08-26 09:57] LABS: Ferritin 1340.4 ng/mL (22.0-322.0)
[2020-08-26 11:41] LABS: Glucose,Whole Blood 270 mg/dL (75-99)
--- NOTE | 2020-08-26 12:07 | P.PN ---
Subjective Progress Note Date: 08/26/20 Principal diagnosis: COVID 19 infection/pneumonia, right-sided pneumothorax, left-sided pneumothorax, acute hypoxic respiratory failure secondary to COVID 19 requiring intubation and mechanical ventilation. Previous medical history of insulin-dependent diabetes mellitus type 2, hypertension Status post right sided chest tube placement on 08/20/20 and 08/22/20 Status post left-sided chest tube placement on 08/25/2020 The patient is currently laying in bed in the intensive care unit sedated, paralyzed, on mechanical ventilation. Two right-sided chest tubes remain, left-sided chest tube placed yesterday by Dr. López. Continuous air leak present in right sided chest tube #2, no air leak in right-sided chest tube #1 or left- sided chest tube. Objective - Vital Signs Vital signs: Vital Signs Temp 98.7 F 08/26/20 04:00 Pulse 123 H 08/26/20 07:00 Resp 28 H 08/26/20 07:00 BP 148/68 08/26/20 07:00 Pulse Ox 86 L 08/26/20 07:00 Intake & Output 08/25/20 08/26/20 08/26/20 18:59 06:59 18:59 Intake Total 2385.658 3161.358 221.134 Output Total 835 810 100 Balance 1808.631 0670.358 121.134 Weight 99.6 kg Intake: IV 1800 1800 100 Cefepime 2 gm In Sodium 100 100 Chloride 0.9% 100 ml @ 25 mls/hr IVPB Q12HR [facility] Rx #:[id number] Sodium Chloride 0.9% 1, 1200 1200 100 000 ml @ 100 mls/hr IV . Q10H [facility] Rx#:[id number] Vancomycin 1,750 mg In 500 500 Sodium Chloride 0.9% 500 ml 500 ml @ 167 mls/hr IVPB Q8H [facility] Rx#: [id number] Intake, IV Titration 455.658 971.358 91.134 Amount Cisatracurium 200 mg In 18.282 181.718 Sodium Chloride 0.9% 180 ml @ 1 MCG/KG/MIN 5.994 mls/hr IV .Q24H [facility] Rx#: [id number] Vancomycin 1,750 mg In 500 Sodium Chloride 0.9% 500 ml 500 ml @ 167 mls/hr IVPB Q8H [facility] Rx#: [id number] propofoL 1,000 mg In 437.376 289.64 91.134 Empty Bag 1 bag @ Titrate IV .Q0M [facility] Rx#: [id number] Tube Feeding 100 300 30 Other 30 90 Output: Chest Tube Drainage 10 Chest Tube Right Upper 10 Urine 825 810 100 Other: Voiding Method Indwelling Catheter Indwelling Catheter - Exam Due to Covid 19 isolation some of the physical exam findings are indirect and obtained from nursing staff and other physician examinations to avoid unnecessary contact with the patient - Constitutional Constitutional Comment(s): Sedated and paralyzed on mechanical ventilation - Respiratory Details: Lungs sounds diminished throughout. Respirations are even on mechanical ventilation, current settings FiO2 100%, TV increased to 550 this morning, RR 28, PEEP increased to 10. 8.0 ETT present, 24 @ the lip. ABGs this AM 7 .16/67/56/24/85%/-4.8 on FiO2 100% with 8 of PEEP. Right pleural chest tubes remain in place to -40 cm continuous wall suction, continuous air leak is present in chest tube #2, no air leak and chest tube #1. Left pleural chest tube present to -20 cm wall suction, no air leak present. Draining minimal thin serosanguineous drainage. - Cardiovascular Details: S1, S2 present. Tachycardic but regular rate and rhythm, sinus tach on telemetry with heart rate in the 120s. Palpable pulses bilaterally. No edema present. SCDs present. - Gastrointestinal Gastrointestinal Comment(s): Abdomen soft, non-tender, non-distended. Active bowel sounds present x 4 quadrants. OGT present, tube feeding infusing at 30 mL/h. Last bowel movement 08/23 - Genitourinary Genitourinary Comment(s): Hallman present draining dark cuong urine. Output 50-120 mL per hour overnight - Integumentary Integumentary Comment(s): Skin is warm and dry - Neurologic Neurologic Comment(s): unable to assess, patient is sedated on propofol, paralyzed Nimbex, [id number] being completed by nursing - Psychiatric Psychiatric Comment(s): sedated on propofol - Allied health notes Allied health notes reviewed: nursing - Labs CBC & Chem 7: 08/26/20 03:33 08/26/20 03:33 Labs: Abnormal Lab Results - Last 24 Hours (Table) 08/25/20 08/25/20 08/25/20 Range/Units 12:05 17:56 23:35 WBC (3.8-10.6) k/uL Plt Count (150-450) k/uL Neutrophils # (1.3-7.7) k/uL Lymphocytes # (1.0-4.8) k/uL D-Dimer (<0.60) mg/L FEU ABG pH (7.35-7.45) ABG pCO2 (35-45) mmHg ABG pO2 (83-108) mmHg ABG Total CO2 (19-24) mmol/L ABG O2 Saturation (94-97) % Sodium (137-145) mmol/L Potassium (3.5-5.1) mmol/L BUN (9-20) mg/dL Creatinine (0.66-1.25) mg/dL Glucose (74-99) mg/dL POC Glucose (mg/dL) 225 H 197 H 233 H (75-99) mg/dL Calcium (8.4-10.2) mg/dL Lactate Dehydrogenase (313-618) U/L Creatine Kinase (55-170) U/L C-Reactive Protein (<10.0) mg/L Total Protein (6.3-8.2) g/dL Albumin (3.5-5.0) g/dL 08/26/20 08/26/20 08/26/20 Range/Units 03:33 03:33 03:33 WBC 32.5 H (3.8-10.6) k/uL Plt Count 145 L (150-450) k/uL Neutrophils # 31.3 H (1.3-7.7) k/uL Lymphocytes # 0.1 L (1.0-4.8) k/uL D-Dimer 12.39 H (<0.60) mg/L FEU ABG pH (7.35-7.45) ABG pCO2 (35-45) mmHg ABG pO2 (83-108) mmHg ABG Total CO2 (19-24) mmol/L ABG O2 Saturation (94-97) % Sodium 136 L (137-145) mmol/L Potassium 5.4 H (3.5-5.1) mmol/L BUN 37 H (9-20) mg/dL Creatinine 1.41 H (0.66-1.25) mg/dL Glucose 238 H (74-99) mg/dL POC Glucose (mg/dL) (75-99) mg/dL Calcium 7.2 L (8.4-10.2) mg/dL Lactate Dehydrogenase 1897 H (313-618) U/L Creatine Kinase 42 L (55-170) U/L C-Reactive Protein 176.4 H (<10.0) mg/L Total Protein 5.4 L (6.3-8.2) g/dL Albumin 2.5 L (3.5-5.0) g/dL 08/26/20 Range/Units 05:30 WBC (3.8-10.6) k/uL Plt Count (150-450) k/uL Neutrophils # (1.3-7.7) k/uL Lymphocytes # (1.0-4.8) k/uL D-Dimer (<0.60) mg/L FEU ABG pH 7.16 L* (7.35-7.45) ABG pCO2 67 H (35-45) mmHg ABG pO2 56 L* (83-108) mmHg ABG Total CO2 26 H (19-24) mmol/L ABG O2 Saturation 85.0 L (94-97) % Sodium (137-145) mmol/L Potassium (3.5-5.1) mmol/L BUN (9-20) mg/dL Creatinine (0.66-1.25) mg/dL Glucose (74-99) mg/dL POC Glucose (mg/dL) (75-99) mg/dL Calcium (8.4-10.2) mg/dL Lactate Dehydrogenase (313-618) U/L Creatine Kinase (55-170) U/L C-Reactive Protein (<10.0) mg/L Total Protein (6.3-8.2) g/dL Albumin (3.5-5.0) g/dL Microbiology - Last 24 Hours (Table) 08/25/20 04:14 Gram Stain - Preliminary Sputum Sputum Culture - Preliminary - Imaging and Cardiology Chest x-ray: report reviewed, image reviewed Assessment and Plan Assessment: 1. COVID 19 infection/pneumonia 2. Right-sided pneumothorax status post right-sided thoracostomy tube placement x [address] López 3. Left sided pneumothorax status post left-sided thoracostomy tube placement by Dr. López 4. Acute hypoxic respiratory failure secondary to COVID 19, intubated and mechanically ventilated 5. Insulin-dependent diabetes mellitus type 2 6. History of hypertension Plan: 1. Continue right sided chest tubes to continuous wall suction at -40 cm, left- sided chest tube to continuous wall suction at -20 cm. 2. Wean from ventilator as tolerated. Management per Dr. López 3. Covid/pneumonia treatment per Dr. López and Dr. De Guzman 4. Continue to monitor daily CXR, inflammatory markers 5. GI/DVT prophylaxis 6. Medical management of other comorbidities per primary care service 7. Patient remains critically ill with poor prognosis. CODE STATUS to be addressed by primary care, pulmonology I have seen and examined the patient and agree with the assessment and plan as dictated by my nurse practitioner. Time with Patient: Greater than 30
[2020-08-26] MEDS ORDERED: VANCOMYCIN TROUGH DUE 1 EACH MISC MISCELLANE ONE (15:00)
[2020-08-26] MEDS ORDERED: VANCOMYCIN IV PER PHARMACY 1 EACH MISC MISCELLANE PRN (15:52)
[2020-08-26] MEDS ORDERED: VANCOMYCIN 1,750 MG in SODIUM CHLORIDE 0.9% 500 ML 500 ML IVPB SCH (16:00)
[2020-08-26 17:31] LABS: Glucose,Whole Blood 272 mg/dL (75-99)
--- NOTE | 2020-08-26 19:18 | P.PN ---
Subjective Progress Note Date: 08/26/20 53-year-old male is admitted for Covid19 pneumonitis, sepsis. Patient went into hypoxemia last night ended up on 3 L of oxygen.overall feeling little bit better. 08/17/2020 Patient's is pretty status is worse and patient is not doing well in spite of high flow nasal cannula oxygen along with 100% many mask. Patient is being started on Remdesivir. Patient is still complaining of shortness of breath Constitutional: Denied any fatigue denied any fever. Cardio vascular: denied any chest pain, palpitations Gastrointestinal denied any nausea vomiting Pulmonary: As mentioned above Neurologic denied any new focal deficits All inpatient medications were reviewed and appropriate changes in these medic ations as dictated in the interval history and assessment and plan. 08/18/2020 Patient is seen and evaluated in follow-up and continues to be maintained on high flow oxygen via nasal cannula. Infectious disease is following. Patient continues to have shortness of breath especially with exertion. Discussed with the patient about increasing activity and getting up to the commode and chair. Patient states he feels slightly better today although continues to be extremely dyspneic. Review of systems: Constitutional: No reports of fatigue, fever, or chills Cardiovascular: No reports of chest pain or palpitations Respiratory: Reports shortness of breath with occasional cough GI: No reports of nausea, vomiting, or diarrhea : No reports of dysuria or retention Neurovascular: No reports of weakness or numbness All medications have been reviewed 08/19/2020 Patient is seen and evaluated in follow-up with no real improvement of respiratory status. Patient continues to sat in the low 80s and drops quickly without oxygen. He she is currently maintained on 15 L high flow oxygen along w ith a nonrebreather over that and was able to obtain 90% oxygen saturation. Patient is currently sitting up at the bedside asking when he can go home. Discussed with the patient at length about respiratory status and his inability to come off oxygen at this time. White blood count elevated at 17.9 from yesterday. BMP within normal limits although blood glucose levels continue to be elevated. Patient is maintained on sliding scale along with long-acting and oral antidiabetic medications. Will continue to monitor as the dexamethasone may be a component of elevated glucose levels. Discussed with the patient about incentive spirometer and instructed to use at least 10 times every hour while awake. Patient currently denies any chest pain or palpitations. Patient is afebrile. No reports of nausea or vomiting patient states he does not have much of an appetite although is tolerating diet. 08/20/2020 Patient is seen in follow-up and continues to be on a nonrebreather and 15 L high flow oxygen and was found to be extremely anxious and hypoxic with saturations in the 70s earlier this morning Repeat chest x-ray done today shows right side pneumothorax along with pneumo mediastinum, subcutaneous emphysema. Pulmonary Dr. López is following and will be placing a chest tube this afternoon. Lovenox dose will be adjusted once chest tube is placed. White blood count elevated at 20.7. D-dimer was found to be 13.05. Review of systems: Constitutional: Anxious, no reports of fever, or chills Cardiovascular: No reports of chest pain or palpitations Respiratory: reports worsening shortness of breath and difficulty breathing GI: No reports of nausea, vomiting, or diarrhea : No reports of dysuria or retention Neurovascular: No reports of weakness or numbness All medications have been reviewed 08/21/2020 Patient is seen and evaluated and follow-up currently remains in the ICU as patient underwent right chest tube placement with Dr. López yesterday due to right pneumothorax with pneumomediastinum and subcutaneous emphysema. Patient is currently sitting up in the chair and on a nonrebreather and high flow oxygen at flow rate of 60% with an FiO2 of 85%. Patient is currently at 89% oxygen saturation. Patient is also receiving a unit of fresh frozen plasma and is maintained on Lovenox. Blood sugars continue to be elevated and will continue to monitor with long-acting along with sliding scale. White Blood count 20.2. Chest x-ray this morning shows a stable right pneumothorax with right-sided chest tube noted and stable subcutaneous emphysema. Patient instructed to continue with incentive spirometer and semi-prone position with the right side up. Patient is somewhat anxious and agitated with remaining hospitalized. No reports of chest pain or palpitations. Denies any nausea or vomiting and is tolerating diet. Patient is currently afebrile. 08/22/2020 Patient has 2 chest tubes on the right side. Patient remains on airvo, there was a persistent leak in the previous chest tube. 08/23/2020 Patient the has bilateral pneumothorax right side has 2 chest tubes attached to wall suction and left-sided pneumothorax is 10-15% which is being monitored, cardiothoracic surgery evaluated the patient. Patient is presently on Bipap. Review of systems: Unable to obtain due to his clinical condition did All inpatient medications were reviewed and appropriate changes in these medications as dictated in the interval history and assessment and plan. 08/24/2020 Patient currently remains on a BiPAP and has 2 right-sided chest tubes and awaiting for possible pigtail once more stabilized. Patient is currently unable to tolerate travel to [place] for interventional radiology to place the catheter. Chest x-ray today shows a moderate size recurrence of the right pneumothorax along with a small left apical pneumo that appears to be stable along with diffuse patchy infiltrates within bilateral lung ulloa. Pulmonary following closely. Discussed with pulmonary about the possibility of a transfer to a tertiary care center if patient's clinical status continues to deteriorate and unable to obtain the left side pigtail catheter. Remains in the ICU with close monitoring. Patient continues on IV antibiotics in the form of cefepime and vancomycin along with zinc, Lovenox, and dexamethasone. Review of systems: Constitutional: Reports fatigue, anxious, no reports of fever, or chills Cardiovascular: No reports of chest pain or palpitations Respiratory: Reports continued shortness of breath and cough GI: No reports of nausea, vomiting, or diarrhea : No reports of dysuria or retention Neurovascular: Reports weakness, no reports of numbness All medications have been reviewed 08/25/2020 Patient is seen and evaluated in follow-up and continues to be closely monitored in the ICU. Patient had a brief period Of respiratory arrest with attempts to pull out chest tubes after removing the BiPAP and was ultimately intubated. Patient was placed on sedation and appears much more calm at this time. Patient currently awaiting to receive a left side chest tube for the small pneumothorax with pulmonary. Patient continues to have 2 right-sided chest tubes at this time. White blood count elevated Review of systems: Unable to assess as patient is currently intubated and sedated. 08/26/20 Patient seen in follow up current remains in the ICU being closely monitored. Repeat chest xray today shows continued diffuse bilateral air space infiltrates with no pneumothoraces visible. Patient continues to have 3 chest tubes and intubated. Prognosis is poor. Code status discussed with the Bette Flores today and she would like him comfortable and made a no code. Consult placed to case management for hospice consult as she would like information about hospice and comfort measures. Review of systems: Unable to obtain as patient is intubated and sedated. Objective - Vital Signs Vital signs: Vital Signs Temp 100.1 F H 08/26/20 12:00 Pulse 120 H 08/26/20 14:00 Resp 27 H 08/26/20 14:00 BP 137/67 08/26/20 14:00 Pulse Ox 91 L 08/26/20 14:00 Intake & Output 08/25/20 08/26/20 08/26/20 18:59 06:59 18:59 Intake Total 2385.658 3161.358 1247.016 Output Total 835 810 350 Balance 8015.857 9328.358 897.016 Weight 99.6 kg Intake: IV 1800 1800 700 Cefepime 2 gm In Sodium 100 100 100 Chloride 0.9% 100 ml @ 25 mls/hr IVPB Q12HR [facility] Rx #:[id number] Sodium Chloride 0.9% 1, 1200 1200 600 000 ml @ 100 mls/hr IV . Q10H [facility] Rx#:[id number] Vancomycin 1,750 mg In 500 500 Sodium Chloride 0.9% 500 ml 500 ml @ 167 mls/hr IVPB Q8H [facility] Rx#: [id number] Intake, IV Titration 455.658 971.358 277.016 Amount Cisatracurium 200 mg In 18.282 181.718 9.59 Sodium Chloride 0.9% 180 ml @ 1 MCG/KG/MIN 5.994 mls/hr IV .Q24H [facility] Rx#: [id number] Vancomycin 1,750 mg In 500 Sodium Chloride 0.9% 500 ml 500 ml @ 167 mls/hr IVPB Q8H [facility] Rx#: [id number] propofoL 1,000 mg In 437.376 289.64 267.426 Empty Bag 1 bag @ Titrate IV .Q0M [facility] Rx#: [id number] Tube Feeding 100 300 270 Other 30 90 Output: Chest Tube Drainage 10 Chest Tube Right Upper 10 Urine 825 810 350 Other: Voiding Method Indwelling Catheter Indwelling Catheter Indwelling Catheter - Exam GENERAL: The patient is intubated and sedated and appears to be in no acute distress. HEENT: Pupils are round and equally reacting to light. EOMI. No scleral icterus. No conjunctival pallor. Normocephalic, atraumatic. No pharyngeal erythema. No thyromegaly. ET tube noted CARDIOVASCULAR: S1 and S2 present. No murmurs, rubs, or gallops. PULMONARY: Bilateral scattered rhonchi, no wheezing noted diminished air entry bilaterally worse on the right, tachypneic, 2 chest tubes noted on the right side and one on the left ABDOMEN: Soft, nontender, nondistended, normoactive bowel sounds. No palpable organomegaly. MUSCULOSKELETAL: No joint swelling or deformity. EXTREMITIES: No cyanosis, clubbing, or pedal edema. NEUROLOGICAL: Unable to fully assess as patient is intubated and sedated SKIN: No rashes. Note: Because of COVID 19 isolation, some of the history and physical exam findings are indirect and obtained from nursing staff, and other physician examinations to avoid unnecessary contact with the patient. - Labs CBC & Chem 7: 08/26/20 03:33 08/26/20 15:05 Labs: Abnormal Lab Results - Last 24 Hours (Table) 08/25/20 08/25/20 08/26/20 Range/Units 17:56 23:35 03:33 WBC (3.8-10.6) k/uL Plt Count (150-450) k/uL Neutrophils # (1.3-7.7) k/uL Lymphocytes # (1.0-4.8) k/uL D-Dimer (<0.60) mg/L FEU ABG pH (7.35-7.45) ABG pCO2 (35-45) mmHg ABG pO2 (83-108) mmHg ABG Total CO2 (19-24) mmol/L ABG O2 Saturation (94-97) % Sodium 136 L (137-145) mmol/L Potassium 5.4 H (3.5-5.1) mmol/L BUN 37 H (9-20) mg/dL Creatinine 1.41 H (0.66-1.25) mg/dL Glucose 238 H (74-99) mg/dL POC Glucose (mg/dL) 197 H 233 H (75-99) mg/dL Calcium 7.2 L (8.4-10.2) mg/dL Ferritin 1340.4 H (22.0-322.0) ng/mL Lactate Dehydrogenase 1897 H (313-618) U/L Creatine Kinase 42 L (55-170) U/L C-Reactive Protein 176.4 H (<10.0) mg/L Total Protein 5.4 L (6.3-8.2) g/dL Albumin 2.5 L (3.5-5.0) g/dL Vancomycin Trough ug/mL 08/26/20 08/26/20 08/26/20 Range/Units 03:33 03:33 05:30 WBC 32.5 H (3.8-10.6) k/uL Plt Count 145 L (150-450) k/uL Neutrophils # 31.3 H (1.3-7.7) k/uL Lymphocytes # 0.1 L (1.0-4.8) k/uL D-Dimer 12.39 H (<0.60) mg/L FEU ABG pH 7.16 L* (7.35-7.45) ABG pCO2 67 H (35-45) mmHg ABG pO2 56 L* (83-108) mmHg ABG Total CO2 26 H (19-24) mmol/L ABG O2 Saturation 85.0 L (94-97) % Sodium (137-145) mmol/L Potassium (3.5-5.1) mmol/L BUN (9-20) mg/dL Creatinine (0.66-1.25) mg/dL Glucose (74-99) mg/dL POC Glucose (mg/dL) (75-99) mg/dL Calcium (8.4-10.2) mg/dL Ferritin (22.0-322.0) ng/mL Lactate Dehydrogenase (313-618) U/L Creatine Kinase (55-170) U/L C-Reactive Protein (<10.0) mg/L Total Protein (6.3-8.2) g/dL Albumin (3.5-5.0) g/dL Vancomycin Trough ug/mL 08/26/20 08/26/20 08/26/20 Range/Units 11:39 15:05 15:05 WBC (3.8-10.6) k/uL Plt Count (150-450) k/uL Neutrophils # (1.3-7.7) k/uL Lymphocytes # (1.0-4.8) k/uL D-Dimer (<0.60) mg/L FEU ABG pH (7.35-7.45) ABG pCO2 (35-45) mmHg ABG pO2 (83-108) mmHg ABG Total CO2 (19-24) mmol/L ABG O2 Saturation (94-97) % Sodium (137-145) mmol/L Potassium (3.5-5.1) mmol/L BUN (9-20) mg/dL Creatinine 2.16 H (0.66-1.25) mg/dL Glucose (74-99) mg/dL POC Glucose (mg/dL) 270 H (75-99) mg/dL Calcium (8.4-10.2) mg/dL Ferritin (22.0-322.0) ng/mL Lactate Dehydrogenase (313-618) U/L Creatine Kinase (55-170) U/L C-Reactive Protein (<10.0) mg/L Total Protein (6.3-8.2) g/dL Albumin (3.5-5.0) g/dL Vancomycin Trough 36.2 H* ug/mL Microbiology - Last 24 Hours (Table) 08/25/20 04:14 Gram Stain - Preliminary Sputum Sputum Culture - Preliminary Presumptive Staph aureus Kristen albicans Assessment and Plan Assessment: -Covid 19 infection/pneumonia:continue with Decadron continue with respiratory support. infectious disease following. Patient intubated -Acute respiratory arrest with hypoxia -Right side pneumothorax patient has 2 chest tubes on the right side, small stable left-sided pneumothorax. chest tube on the left with pulmonary -Type 2 diabetes mellitus uncontrolled, continue on long-acting along with sliding scale. -mild hypovolemic hyponatremia, improved -Hypertension: -DVT prophylaxis with Lovenox -GI prophylaxis: Pepcid Plan: Continue current medications and continue to monitor closely. Patient currently in the ICU for close monitoring. Currently with 2 chest tubes on the right side with continued air leak and one chest tube on the left side. Patient is currently intubated and sedated. Maintained on IV antibiotics in the form of cefepime and vancomycin and will continue at this time. Pulmonary and infectious disease also following. Prognosis is extremely guarded and poor and discussed CODE STATUS with family. Bette Flores would like no code status and will discuss with hospice about comfort measures. This was discussed with pulmonary Dr. López as well. Will continue to monitor vital signs and labs closely. Further recommendations to follow. Prognosis is poor and extremely guarded.
[2020-08-26] MEDS: ASPIRIN 81 MG PO SCH (19:47)
[2020-08-26] MEDS: INSULIN DETEMIR (LEVEMIR) 100 UNIT/ML SYR SQ SCH (19:48)
[2020-08-26 23:18] LABS: Glucose,Whole Blood 282 mg/dL (75-99)
--- NOTE | 2020-08-26 23:48 | PN ---
PROGRESS NOTE DATE OF SERVICE: 08/26/2020 REASON FOR FOLLOWUP: Acute COVID-19 pneumonia. INTERVAL HISTORY: The patient is currently afebrile. Patient is hemodynamically . The patient FiO2 is cut down to 90%. No significant purulent secretions through the ET tube has been reported. any worsening diarrhea. PHYSICAL EXAMINATION: Blood pressure 133/68, pulse of 111. Temperature is 99.3. He is 92% on 90% FIO2. General description is a middle-aged male, intubated on the vent. Respiratory system: Unlabored breathing with diminished breath sounds in the bases. No wheeze. Extremities: No edema of the feet. LABS: Hemoglobin is 14.6, white count 22.5, BUN of 27, creatinine 1.41. Vancomycin trough elevated. Sputum showing presumptive Staph aureus. DIAGNOSTIC IMPRESSION/PLAN: 1. Patient with acute respiratory failure which is multifactorial. This patient did have acute COVID-19 pneumonia. Patient finished therapy with Remdesivir, and received plasma, to continue with Dexamethasone, Lovenox and zinc. 2. Patient with possible nosocomial pneumonia. Sputum showing a Staph aureus. Cultures will be followed. Covered on vancomycin and cefepime. with the final cultures. 3. Continue supportive care. MMODL / IJN: [id number] /
[2020-08-27] MEDS: INSULIN ASPART (NovoLOG) 100 UNIT/ML VIAL SQ SCH ×4 (00:12→18:29)
[2020-08-27] MEDS: SODIUM CHLORIDE 0.9% 1,000 ML IV SCH ×3 (03:20→20:19)
[2020-08-27] MEDS: CISATRACURIUM 200 MG in SODIUM CHLORIDE 0.9% 180 ML IV SCH ×3 (05:05→18:40)
[2020-08-27 05:43] LABS: ABG Base Excess -4.9 mmol/L; ABG HCO3 23 mmol/L (21-25); ABG Oxygen Saturation 89.5 % (94-97); ABG PCO2 61 mmHg (35-45); ABG PO2 63 mmHg (83-108); ABG TCO2 25 mmol/L (19-24); Allen Test Performed? Yes
[2020-08-27 05:46] LABS: ABG PH 7.19 (7.35-7.45)
[2020-08-27] MEDS ORDERED: SODIUM BICARB 8.4% 50 ML SYR (1 MEQ/ML) IV STA (06:07)
[2020-08-27 06:25] LABS: Glucose,Whole Blood 245 mg/dL (75-99)
[2020-08-27 06:45] LABS: Basophils # (A) 0.1 k/uL (0-0.2); Basophils % (A) 0 %; Eosinophils # (A) 0.1 k/uL (0-0.7); Eosinophils % (A) 0 %; HCT 40.5 % (39.0-53.0); Hypochromasia Slight; Lymphocytes # (A) 0.2 k/uL (1.0-4.8); Lymphocytes % (A) 1 %; MCH 28.6 pg (25.0-35.0); MCV 89.3 fL (80.0-100.0); Mean Platelet Volume 7.9; Monocytes # (A) 1.1 k/uL (0-1.0); Monocytes % (A) 4 %; Neutrophils % (A) 94 %; Platelet Count 157 k/uL (150-450); Poikilocytosis Slight; RBC 4.53 m/uL (4.30-5.90); RDW 14.4 % (11.5-15.5); WBC 28.6 k/uL (3.8-10.6)
[2020-08-27 07:05] LABS: Albumin 2.2 g/dL (3.5-5.0); Calcium 7.4 mg/dL (8.4-10.2); Potassium 5.7 mmol/L (3.5-5.1); Total Bilirubin 0.5 mg/dL (0.2-1.3)
[2020-08-27 07:19] LABS: Vancomycin,Random 33.3 ug/mL
[2020-08-27 07:20] LABS: C Reactive Protein 156.2 mg/L (<10.0)
--- NOTE | 2020-08-27 07:20 | XR ---
EXAMINATION TYPE: XR chest 1V portable DATE OF EXAM: 08/27/2020 COMPARISON: 08/26/2020 HISTORY: SOB, Follow Up FINDINGS: Indwelling tubes and catheters are unchanged. Bilateral chest tubes are redemonstrated. Bilateral les s than 10% pneumothoraces seen bilaterally. Diffuse airspace infiltrates persist bilaterally. Stable appearance of the cardio-mediastinal structures at this time. Pleural effusion unchanged. IMPRESSION: 1. Stable portable chest. Clinical correlation and follow up until resolution is recommended.
[2020-08-27] MEDS ORDERED: propofoL 100 ML IV ONE (09:45)
[2020-08-27 10:00] LABS: Ferritin 1400.6 ng/mL (22.0-322.0)
--- NOTE | 2020-08-27 11:31 | P.PN ---
Subjective Progress Note Date: 08/26/20 Principal diagnosis: Right spontaneous pneumothorax status post 2 chest tubes Pneumomediastinum Left spontaneous pneumothorax Acute hypoxic respiratory failure Covid 19 pneumonia Type 2 diabetes mellitus Hypertension hypertensive cardiovascular disease Dehydration hypovolemia and hyponatremia Depression 08/26/2020, patient seen eval examined during the rounds labs reviewed medications reviewed, chest tube continue to gently air, patient intubated, on full ventilator support noted evidence of hypercapnia with increase the ventilation C orders, chest x-ray reviewed trace pneumothorax on the apex cannot be excluded, basal bilateral dense infiltrate with mediastinal emphysema, no significant pneumothorax seen, labs reviewed, critical care time 35 minutes 08/25/2020, patient seen eval examined during the rounds labs reviewed medications reviewed care plan discussed with the staff, patient had a respiratory arrest earlier this morning during which he pulled out his BiPAP machine oxygen saturation dropped down into 20s, he also tried to pull out his chest tube, during that process he was intubated, postintubation chest x-ray shows minimal pneumothorax on the right side left-sided pneumothorax or anterior posterior cannot be excluded, extensive pneumomediastinum is present, patient currently and placed on the propofol at 75 mics was very restless and agitated, tachypneic tachycardic and eventually medically paralyzed with Nimbex drip, respiratory status slightly more stable patient is more calm and now hemodynamics stable, has been getting IV fluids, will need a chest tube on the the left side to avoid tension pneumothorax, keep the 2 chest tube on the right side 1 direct towards the apex appears to be stable however one at the base of the lung is still in, dense bilateral infiltrate are present, white cell count is up to 34,000, arterial blood gas and chest x-ray reviewed consistent with respiratory and metabolic acidosis, with severe hypoxia requiring PEEP with high ventilatory rate 08/24/2020, patient seen eval examined during the rounds labs reviewed medications reviewed sitting upright on the bed, remains on BiPAP with 100% oxygen, saturation 95%, patient desaturated into goes on the right side down and intermittently during supine posture, however do better with left side up, and sitting up as well, chest x-ray from today reviewed pneumothorax recurred on the right side in spite of 2 chest tube aiming towards the apex and the base with significant air leak, small left apical pneumothorax however is stable, patient is awaiting evaluation from thoracic surgery for possible VATS or transfer to tertiary care center, left side and INR will put a small bore pigtail catheter at the apex later on this morning, patient remains afebrile slightly tachycardic tachypneic, inflammatory parameters still up, prognosis is guarded care plan discussed directly and indirectly with primary service, staff, cardiothoracic and IR 08/23/2020, patient seen eval reexamined during the rounds labs reviewed medications reviewed, oxygen saturation remained stable, however patient couldn't tolerate off of BiPAP, he remains on BiPAP. All, chest x-ray reviewed, patient hasn't to right-sided chest tube air leak is present from both, left-s ided residual small pneumothorax present along with subcutaneous emphysema and mediastinal emphysema, interventional radiology could not do a chest tube on the left side, they are planning to do it tomorrow, white cell count decreased to 19,000, d-dimer is still elevated inflammatory parameters elevated consistent with cytokine nita 08/22/2020, patient seen eval reexamined significant desaturation was more noted, sats dropped down to 55-70% spontaneously comes right back up though currently on 93% BiPAP, Semiprone with the right side up patient cannot tolerate airvo, desaturated easily remains tachypneic tachycardic hemodynamic status however remains stable, chest x-ray findings reviewed in spite of right-sided chest tube and persistent air leak there is a persistent spontaneous pneumoth orax fairly large on the right side and small apical left sided spontaneous pneumothorax noted with pneumomediastinum and bilateral dense infiltrate at the bases, thoracic surgery has been consulted, patient may need an another chest tube on the right side versus VATS and preferably and of the small chest U was on the left side, will defer to expertise of thoracic surgery, labs reviewed medications reviewed care plan discussed at length with the staff 08/21/2020, patient seen eval examined during the rounds sitting upright in chair breathing slightly better oxygen saturation is 87-88%, patient is on high flow oxygen along with the nonrebreather mass, tachypneic tachycardic blood pressure is slightly high, patient has a right-sided chest tube is still leaking air, chest x-ray reviewed bilateral infiltrate is present with residual pneumothorax and subcu emphysema, labs from today reviewed white cell count remains elevated 20,000, renal functions stable, will attempt semi-prone with right side up, we will obtain an transfuse convalescent plasma 08/20/2020, patient seen eval examined during the rounds a labs reviewed medications reviewed this morning patient had problems with agitated anxiety and a prehension, oxygen saturation dropped down into 70s, rapid response was called and stat chest x-ray revealed presence of pneumothorax which is significant on the right side as well they may be a small mediastinal emphysema on the left side as well, patient has been made semi-prone with that oxygen saturation 100% nonrebreather mask improved to 92% patient is more calm, he remains afebrile temperature is 98.3 respiratory rate and mid to high 20s, weight is oxygen saturation 94%, chest x-ray finding reviewed 08/19/2020, patient seen eval examined during the rounds labs reviewed medications reviewed care plan discussed, patient is sitting upright on the bed on 100% nonrebreather mask, saturation remains marginal about 88%, remains afebrile, slightly anxious, advised based he hasn't to be on prone position as much as possible, labs reviewed white cell count is 17,000, patient remains on Remdesivir, Decadron, Lovenox August 18 2020, patient seen eval examined during the rounds is still on 5 L high flow oxygen, denies any chest pain breathing difficulties present, denies any cough or sputum production labs chest x-ray reviewed This is a 59-year-old male who has history of diabetes hypertension hypertensive cardiovascular disease and not feeling well for the last 5-6 days with cough and increased shortness of breath started with a sore throat, patient admitted into the hospital was spiking fever up to 101, oxygen saturation 90%, patient already has been started on REM doesn't wear and Decadron, his initial admit x-ray cystoscopy right midlung field and left lower lid feeding infiltrate patient gradually got worse initially has been on room air oxygen requirement keep on going up to 3 L and subsequently on 5 L high flow oxygen with that oxygen saturation is 93%, critical care time spent 35 minutes Objective - Vital Signs Vital signs: Vital Signs Temp 100.5 F H 08/26/20 08:00 Pulse 126 H 08/26/20 09:00 Resp 28 H 08/26/20 09:00 BP 157/72 08/26/20 09:00 Pulse Ox 84 L 08/26/20 09:00 Intake & Output 08/25/20 08/26/20 08/26/20 18:59 06:59 18:59 Intake Total 2385.658 3161.358 610.724 Output Total 835 810 225 Balance 9497.577 4054.358 385.724 Weight 99.6 kg Intake: IV 1800 1800 400 Cefepime 2 gm In Sodium 100 100 100 Chloride 0.9% 100 ml @ 25 mls/hr IVPB Q12HR [facility] Rx #:[id number] Sodium Chloride 0.9% 1, 1200 1200 300 000 ml @ 100 mls/hr IV . Q10H [facility] Rx#:[id number] Vancomycin 1,750 mg In 500 500 Sodium Chloride 0.9% 500 ml 500 ml @ 167 mls/hr IVPB Q8H [facility] Rx#: [id number] Intake, IV Titration 455.658 971.358 100.724 Amount Cisatracurium 200 mg In 18.282 181.718 9.59 Sodium Chloride 0.9% 180 ml @ 1 MCG/KG/MIN 5.994 mls/hr IV .Q24H [facility] Rx#: [id number] Vancomycin 1,750 mg In 500 Sodium Chloride 0.9% 500 ml 500 ml @ 167 mls/hr IVPB Q8H [facility] Rx#: [id number] propofoL 1,000 mg In 437.376 289.64 91.134 Empty Bag 1 bag @ Titrate IV .Q0M [facility] Rx#: [id number] Tube Feeding 100 300 110 Other 30 90 Output: Chest Tube Drainage 10 Chest Tube Right Upper 10 Urine 825 810 225 Other: Voiding Method Indwelling Catheter Indwelling Catheter Indwelling Catheter - Exam - Constitutional General appearance: Intubated medically paralyzed on full ventilator support - EENT Eyes: EOMI, PERRLA Ears: bilateral: normal - Neck Neck: normal ROM Carotids: bilateral: upstroke normal Thyroid: bilateral: normal size - Respiratory Respiratory: bilateral: diminished - Cardiovascular Rhythm: regular Heart sounds: normal: S1, S2 - Gastrointestinal General gastrointestinal: normal bowel sounds - Neurologic Neurologic: CNII-XII intact - Musculoskeletal Musculoskeletal: gait normal, generalized weakness, strength equal bilaterally - Psychiatric Psychiatric: Appears, now post medical paralysis - Labs CBC & Chem 7: 08/27/20 05:53 08/27/20 05:53 Labs: Abnormal Lab Results - Last 24 Hours (Table) 08/25/20 08/25/20 08/25/20 Range/Units 12:05 17:56 23:35 WBC (3.8-10.6) k/uL Plt Count (150-450) k/uL Neutrophils # (1.3-7.7) k/uL Lymphocytes # (1.0-4.8) k/uL D-Dimer (<0.60) mg/L FEU ABG pH (7.35-7.45) ABG pCO2 (35-45) mmHg ABG pO2 (83-108) mmHg ABG Total CO2 (19-24) mmol/L ABG O2 Saturation (94-97) % Sodium (137-145) mmol/L Potassium (3.5-5.1) mmol/L BUN (9-20) mg/dL Creatinine (0.66-1.25) mg/dL Glucose (74-99) mg/dL POC Glucose (mg/dL) 225 H 197 H 233 H (75-99) mg/dL Calcium (8.4-10.2) mg/dL Ferritin (22.0-322.0) ng/mL Lactate Dehydrogenase (313-618) U/L Creatine Kinase (55-170) U/L C-Reactive Protein (<10.0) mg/L Total Protein (6.3-8.2) g/dL Albumin (3.5-5.0) g/dL 08/26/20 08/26/20 08/26/20 Range/Units 03:33 03:33 03:33 WBC 32.5 H (3.8-10.6) k/uL Plt Count 145 L (150-450) k/uL Neutrophils # 31.3 H (1.3-7.7) k/uL Lymphocytes # 0.1 L (1.0-4.8) k/uL D-Dimer 12.39 H (<0.60) mg/L FEU ABG pH (7.35-7.45) ABG pCO2 (35-45) mmHg ABG pO2 (83-108) mmHg ABG Total CO2 (19-24) mmol/L ABG O2 Saturation (94-97) % Sodium 136 L (137-145) mmol/L Potassium 5.4 H (3.5-5.1) mmol/L BUN 37 H (9-20) mg/dL Creatinine 1.41 H (0.66-1.25) mg/dL Glucose 238 H (74-99) mg/dL POC Glucose (mg/dL) (75-99) mg/dL Calcium 7.2 L (8.4-10.2) mg/dL Ferritin 1340.4 H (22.0-322.0) ng/mL Lactate Dehydrogenase 1897 H (313-618) U/L Creatine Kinase 42 L (55-170) U/L C-Reactive Protein 176.4 H (<10.0) mg/L Total Protein 5.4 L (6.3-8.2) g/dL Albumin 2.5 L (3.5-5.0) g/dL 08/26/20 Range/Units 05:30 WBC (3.8-10.6) k/uL Plt Count (150-450) k/uL Neutrophils # (1.3-7.7) k/uL Lymphocytes # (1.0-4.8) k/uL D-Dimer (<0.60) mg/L FEU ABG pH 7.16 L* (7.35-7.45) ABG pCO2 67 H (35-45) mmHg ABG pO2 56 L* (83-108) mmHg ABG Total CO2 26 H (19-24) mmol/L ABG O2 Saturation 85.0 L (94-97) % Sodium (137-145) mmol/L Potassium (3.5-5.1) mmol/L BUN (9-20) mg/dL Creatinine (0.66-1.25) mg/dL Glucose (74-99) mg/dL POC Glucose (mg/dL) (75-99) mg/dL Calcium (8.4-10.2) mg/dL Ferritin (22.0-322.0) ng/mL Lactate Dehydrogenase (313-618) U/L Creatine Kinase (55-170) U/L C-Reactive Protein (<10.0) mg/L Total Protein (6.3-8.2) g/dL Albumin (3.5-5.0) g/dL Microbiology - Last 24 Hours (Table) 08/25/20 04:14 Gram Stain - Preliminary Sputum Sputum Culture - Preliminary Assessment and Plan Assessment: Status post respiratory arrest patient intubated Right spontaneous pneumothorax in spite of right-sided double chest tube persistent air leak and pneumothorax is present, cardiothoracic following Anterior posterior pneumothorax on the left side cannot be excluded Extensive Pneumomediastinum Left spontaneous pneumothorax, will put a small bore chest tube to avoid tension pneumothorax Acute hypoxic respiratory failure Covid 19 pneumonia Type 2 diabetes mellitus Hypertension hypertensive cardiovascular disease Dehydration hypovolemia and hyponatremia Depression Overall prognosis is very poor Plan: Chest tube assessment and plan for bilateral pneumothoraces and pneumomediastinum as above Continue antihypertensive agent from home Continue to follow sugars closely Chest tube to 20 cm water suction is still have significant air leak from both chest tube Ventilator adjustment as needed Status post Convalescent plasma Agree with supplemental oxygen and nonrebreather mask may need BiPAP as needed O follow closely Prone positioning as much as 16 hour a day either continuous or intermittent Deep breathing exercise incentive spirometry Increase activity as tolerated Continue Decadron and IV Remdesivir for 10 and 5 days respectively Further plan of care as per clinical response of the patient, overall prognosis is guarded Time with Patient: Greater than 30
--- NOTE | 2020-08-27 11:33 | P.PN ---
Subjective Progress Note Date: 08/27/20 (Critical care time 35 minutes) Principal diagnosis: Right spontaneous pneumothorax status post 2 chest tubes Pneumomediastinum Left spontaneous pneumothorax Acute hypoxic respiratory failure Covid 19 pneumonia Type 2 diabetes mellitus Hypertension hypertensive cardiovascular disease Dehydration hypovolemia and hyponatremia Depression 08/27/2020, patient seen eval examined during the rounds sedated and medically paralyzed, right-sided chest tube is still significantly and leak upper tube is present no significantly is seen in the 1 and also left side, labs and arterial blood gases reviewed and ventilator adjusted, chest U was stable on chest x-ray, apical very small pneumothorax, 08/26/2020, patient seen eval examined during the rounds labs reviewed medi cations reviewed, chest tube continue to gently air, patient intubated, on full ventilator support noted evidence of hypercapnia with increase the ventilation C orders, chest x-ray reviewed trace pneumothorax on the apex cannot be excluded, basal bilateral dense infiltrate with mediastinal emphysema, no significant pneumothorax seen, labs reviewed, critical care time 35 minutes 08/25/2020, patient seen eval examined during the rounds labs reviewed medications reviewed care plan discussed with the staff, patient had a respiratory arrest earlier this morning during which he pulled out his BiPAP machine oxygen saturation dropped down into 20s, he also tried to pull out his chest tube, during that process he was intubated, postintubation chest x-ray shows minimal pneumothorax on the right side left-sided pneumothorax or anterior posterior cannot be excluded, extensive pneumomediastinum is present, patient currently and placed on the propofol at 75 mics was very restless and agitated, tachypneic tachycardic and eventually medically paralyzed with Nimbex drip, respiratory status slightly more stable patient is more calm and now hemodynamics stable, has been getting IV fluids, will need a chest tube on the the left side to avoid tension pneumothorax, keep the 2 chest tube on the right side 1 direct towards the apex appears to be stable however one at the base of the lung is still in, dense bilateral infiltrate are present, white cell count is up to 34,000, arterial blood gas and chest x-ray reviewed consistent with respiratory and metabolic acidosis, with severe hypoxia requiring PEEP with high ventilatory rate 08/24/2020, patient seen eval examined during the rounds labs reviewed medications reviewed sitting upright on the bed, remains on BiPAP with 100% oxygen, saturation 95%, patient desaturated into goes on the right side down and intermittently during supine posture, however do better with left side up, and sitting up as well, chest x-ray from today reviewed pneumothorax recurred on the right side in spite of 2 chest tube aiming towards the apex and the base with significant air leak, small left apical pneumothorax however is stable, patient is awaiting evaluation from thoracic surgery for possible VATS or transfer to tertiary care center, left side and INR will put a small bore pigtail catheter at the apex later on this morning, patient remains afebrile slightly tachycardic tachypneic, inflammatory parameters still up, prognosis is guarded care plan discussed directly and indirectly with primary service, staff, cardiothoracic and IR 08/23/2020, patient seen eval reexamined during the rounds labs reviewed medications reviewed, oxygen saturation remained stable, however patient couldn't tolerate off of BiPAP, he remains on BiPAP. All, chest x-ray reviewed, patient hasn't to right-sided chest tube air leak is present from both, left- sided residual small pneumothorax present along with subcutaneous emphysema and mediastinal emphysema, interventional radiology could not do a chest tube on the left side, they are planning to do it tomorrow, white cell count decreased to 19,000, d-dimer is still elevated inflammatory parameters elevated consistent with cytokine nita 08/22/2020, patient seen eval reexamined significant desaturation was more noted, sats dropped down to 55-70% spontaneously comes right back up though currently on 93% BiPAP, Semiprone with the right side up patient cannot tolerate airvo, desaturated easily remains tachypneic tachycardic hemodynamic status however remains stable, chest x-ray findings reviewed in spite of right-sided chest tube and persistent air leak there is a persistent spontaneous pneumothorax fairly large on the right side and small apical left sided spontaneous pneumothorax noted with pneumomediastinum and bilateral dense infiltrate at the bases, thoracic surgery has been consulted, patient may need an another chest tube on the right side versus VATS and preferably and of the small chest U was on the left side, will defer to expertise of thoracic surgery, labs reviewed medications reviewed care plan discussed at length with the staff 08/21/2020, patient seen eval examined during the rounds sitting upright in chair breathing slightly better oxygen saturation is 87-88%, patient is on high flow oxygen along with the nonrebreather mass, tachypneic tachycardic blood pressure is slightly high, patient has a right-sided chest tube is still leaking air, chest x-ray reviewed bilateral infiltrate is present with residual pneumothorax and subcu emphysema, labs from today reviewed white cell count remains elevated 20,000, renal functions stable, will attempt semi-prone with right side up, we will obtain an transfuse convalescent plasma 08/20/2020, patient seen eval examined during the rounds a labs reviewed medications reviewed this morning patient had problems with agitated anxiety and a prehension, oxygen saturation dropped down into 70s, rapid response was called and stat chest x-ray revealed presence of pneumothorax which is significant on the right side as well they may be a small mediastinal emphysema on the left side as well, patient has been made semi-prone with that oxygen saturation 100% nonrebreather mask improved to 92% patient is more calm, he remains afebrile temperature is 98.3 respiratory rate and mid to high 20s, weight is oxygen saturation 94%, chest x-ray finding reviewed 08/19/2020, patient seen eval examined during the rounds labs reviewed medicati ons reviewed care plan discussed, patient is sitting upright on the bed on 100% nonrebreather mask, saturation remains marginal about 88%, remains afebrile, slightly anxious, advised based he hasn't to be on prone position as much as possible, labs reviewed white cell count is 17,000, patient remains on Remdesivir, Decadron, Lovenox August 18 2020, patient seen eval examined during the rounds is still on 5 L high flow oxygen, denies any chest pain breathing difficulties present, denies any cough or sputum production labs chest x-ray reviewed This is a 59-year-old male who has history of diabetes hypertension hypertensive cardiovascular disease and not feeling well for the last 5-6 days with cough and increased shortness of breath started with a sore throat, patient admitted into the hospital was spiking fever up to 101, oxygen saturation 90%, patient already has been started on REM doesn't wear and Decadron, his initial admit x-ray cystoscopy right midlung field and left lower lid feeding infiltrate patient gradually got worse initially has been on room air oxygen requirement keep on going up to 3 L and subsequently on 5 L high flow oxygen with that oxygen saturation is 93%, critical care time spent 35 minutes Objective - Vital Signs Vital signs: Vital Signs Temp 100.8 F H 08/27/20 04:00 Pulse 115 H 08/27/20 07:00 Resp 28 H 08/27/20 07:00 BP 137/59 08/27/20 07:00 Pulse Ox 90 L 08/27/20 07:00 Intake & Output 08/26/20 08/27/20 08/27/20 18:59 06:59 18:59 Intake Total 2313.218 2218.026 222.43 Output Total 765 590 50 Balance 8424.744 0518.026 172.43 Intake: IV 1400 1200 100 Cefepime 2 gm In Sodium 100 100 Chloride 0.9% 100 ml @ 25 mls/hr IVPB Q12HR [facility] Rx #:[id number] Sodium Chloride 0.9% 1, 1300 1100 100 000 ml @ 100 mls/hr IV . Q10H [facility] Rx#:[id number] Intake, IV Titration 351.218 386.026 70.43 Amount Cisatracurium 200 mg In 9.59 190.41 70.43 Sodium Chloride 0.9% 180 ml @ 1 MCG/KG/MIN 5.994 mls/hr IV .Q24H [facility] Rx#: [id number] propofoL 1,000 mg In 341.628 195.616 Empty Bag 1 bag @ Titrate IV .Q0M [facility] Rx#: [id number] Tube Feeding 562 572 52 Other 60 Output: Urine 765 590 50 Other: Voiding Method Indwelling Catheter Indwelling Catheter - Exam - Constitutional General appearance: Intubated medically paralyzed on full ventilator support - EENT Eyes: EOMI, PERRLA Ears: bilateral: normal - Neck Neck: normal ROM Carotids: bilateral: upstroke normal Thyroid: bilateral: normal size - Respiratory Respiratory: bilateral: diminished - Cardiovascular Rhythm: regular Heart sounds: normal: S1, S2 - Gastrointestinal General gastrointestinal: normal bowel sounds - Neurologic Neurologic: CNII-XII intact - Musculoskeletal Musculoskeletal: gait normal, generalized weakness, strength equal bilaterally - Psychiatric Psychiatric: Appears, now post medical paralysis - Labs CBC & Chem 7: 08/27/20 05:53 08/27/20 05:53 Labs: Abnormal Lab Results - Last 24 Hours (Table) 08/26/20 08/26/20 08/26/20 Range/Units 11:39 15:05 15:05 WBC (3.8-10.6) k/uL Neutrophils # (1.3-7.7) k/uL Lymphocytes # (1.0-4.8) k/uL Monocytes # (0-1.0) k/uL ABG pH (7.35-7.45) ABG pCO2 (35-45) mmHg ABG pO2 (83-108) mmHg ABG Total CO2 (19-24) mmol/L ABG O2 Saturation (94-97) % Sodium (137-145) mmol/L Potassium (3.5-5.1) mmol/L Chloride (98-107) mmol/L BUN (9-20) mg/dL Creatinine 2.16 H (0.66-1.25) mg/dL Glucose (74-99) mg/dL POC Glucose (mg/dL) 270 H (75-99) mg/dL Calcium (8.4-10.2) mg/dL Ferritin (22.0-322.0) ng/mL Lactate Dehydrogenase (313-618) U/L Creatine Kinase (55-170) U/L C-Reactive Protein (<10.0) mg/L Total Protein (6.3-8.2) g/dL Albumin (3.5-5.0) g/dL Vancomycin Trough 36.2 H* ug/mL 08/26/20 08/26/20 08/27/20 Range/Units 17:29 23:17 05:36 WBC (3.8-10.6) k/uL Neutrophils # (1.3-7.7) k/uL Lymphocytes # (1.0-4.8) k/uL Monocytes # (0-1.0) k/uL ABG pH 7.19 L* (7.35-7.45) ABG pCO2 61 H (35-45) mmHg ABG pO2 63 L (83-108) mmHg ABG Total CO2 25 H (19-24) mmol/L ABG O2 Saturation 89.5 L (94-97) % Sodium (137-145) mmol/L Potassium (3.5-5.1) mmol/L Chloride (98-107) mmol/L BUN (9-20) mg/dL Creatinine (0.66-1.25) mg/dL Glucose (74-99) mg/dL POC Glucose (mg/dL) 272 H 282 H (75-99) mg/dL Calcium (8.4-10.2) mg/dL Ferritin (22.0-322.0) ng/mL Lactate Dehydrogenase (313-618) U/L Creatine Kinase (55-170) U/L C-Reactive Protein (<10.0) mg/L Total Protein (6.3-8.2) g/dL Albumin (3.5-5.0) g/dL Vancomycin Trough ug/mL 08/27/20 08/27/20 08/27/20 Range/Units 05:53 05:53 06:23 WBC 28.6 H (3.8-10.6) k/uL Neutrophils # 27.0 H (1.3-7.7) k/uL Lymphocytes # 0.2 L (1.0-4.8) k/uL Monocytes # 1.1 H (0-1.0) k/uL ABG pH (7.35-7.45) ABG pCO2 (35-45) mmHg ABG pO2 (83-108) mmHg ABG Total CO2 (19-24) mmol/L ABG O2 Saturation (94-97) % Sodium 136 L (137-145) mmol/L Potassium 5.7 H (3.5-5.1) mmol/L Chloride 108 H (98-107) mmol/L BUN 64 H (9-20) mg/dL Creatinine 3.17 H (0.66-1.25) mg/dL Glucose 261 H (74-99) mg/dL POC Glucose (mg/dL) 245 H (75-99) mg/dL Calcium 7.4 L (8.4-10.2) mg/dL Ferritin 1400.6 H (22.0-322.0) ng/mL Lactate Dehydrogenase 1899 H (313-618) U/L Creatine Kinase 42 L (55-170) U/L C-Reactive Protein 156.2 H (<10.0) mg/L Total Protein 5.0 L (6.3-8.2) g/dL Albumin 2.2 L (3.5-5.0) g/dL Vancomycin Trough ug/mL Microbiology - Last 24 Hours (Table) 08/25/20 04:14 Gram Stain - Preliminary Sputum Sputum Culture - Preliminary Presumptive Staph aureus Kristen albicans Assessment and Plan Assessment: Status post respiratory arrest patient intubated Right spontaneous pneumothorax in spite of right-sided double chest tube persistent air leak and pneumothorax is present, cardiothoracic following Anterior posterior pneumothorax on the left side cannot be excluded Extensive Pneumomediastinum Left spontaneous pneumothorax, will put a small bore chest tube to avoid tension pneumothorax Acute hypoxic respiratory failure Covid 19 pneumonia Type 2 diabetes mellitus Hypertension hypertensive cardiovascular disease Dehydration hypovolemia and hyponatremia Depression Overall prognosis is very poor Plan: Chest tube assessment and plan for bilateral pneumothoraces and pneumomediastinum as above Continue antihypertensive agent from home Continue to follow sugars closely Chest tube to 20 cm water suction is still have significant air leak from both chest tube Ventilator adjustment as needed Status post Convalescent plasma Agree with supplemental oxygen and nonrebreather mask may need BiPAP as needed O follow closely Prone positioning as much as 16 hour a day either continuous or intermittent Deep breathing exercise incentive spirometry Increase activity as tolerated Continue Decadron and IV Remdesivir for 10 and 5 days respectively Further plan of care as per clinical response of the patient, overall prognosis is guarded Time with Patient: Greater than 30
[2020-08-27] MEDS: ASCORBIC ACID 500 MG TAB PO SCH (12:37)
[2020-08-27] MEDS: CEFEPIME 2 GM in SODIUM CHLORIDE 0.9% 100 ML IVPB SCH ×2 (12:37→20:18)
[2020-08-27] MEDS: CHLORHEXIDINE GLUCONATE 15 ML CUP MUCOUS MEM SCH ×2 (12:38→20:19)
[2020-08-27] MEDS: DEXAMETHASONE SOD PHOSPHATE 10 MG/ML 1 ML VIAL IV SCH (12:39)
[2020-08-27] MEDS: FAMOTIDINE 20 MG TAB PO SCH ×2 (12:40→20:19)
[2020-08-27] MEDS: lisinopriL 10 MG TAB PO SCH (12:40)
[2020-08-27] MEDS: ENOXAPARIN 40 MG/0.4 ML SYRINGE SQ SCH ×2 (12:40→20:19)
[2020-08-27] MEDS: ZINC SULFATE 220 MG CAP PO SCH (12:40)
[2020-08-27 12:56] LABS: Glucose,Whole Blood 257 mg/dL (75-99)
[2020-08-27 18:11] LABS: Glucose,Whole Blood 344 mg/dL (75-99)
[2020-08-27] MEDS ORDERED: INSULIN ASPART (NovoLOG) 100 UNIT/ML VIAL SQ ONE (18:26)
[2020-08-27] MEDS: INSULIN DETEMIR (LEVEMIR) 100 UNIT/ML SYR SQ SCH (20:18)
[2020-08-27] MEDS: ASPIRIN 81 MG PO SCH (20:19)
--- NOTE | 2020-08-27 22:59 | P.PN ---
Subjective Progress Note Date: 08/27/20 Principal diagnosis: Covid 19 infection/pneumonia 53-year-old male is admitted for Covid19 pneumonitis, sepsis. Patient went into hypoxemia last night ended up on 3 L of oxygen.overall feeling little bit better. 08/17/2020 Patient's is pretty status is worse and patient is not doing well in spite of high flow nasal cannula oxygen along with 100% many mask. Patient is being started on Remdesivir. Patient is still complaining of shortness of breath Constitutional: Denied any fatigue denied any fever. Cardio vascular: denied any chest pain, palpitations Gastrointestinal denied any nausea vomiting Pulmonary: As mentioned above Neurologic denied any new focal deficits All inpatient medications were reviewed and appropriate changes in these medications as dictated in the interval history and assessment and plan. 08/18/2020 Patient is seen and evaluated in follow-up and continues to be maintained on high flow oxygen via nasal cannula. Infectious disease is following. Patient continues to have shortness of breath especially with exertion. Discussed with the patient about increasing activity and getting up to the commode and chair. Patient states he feels slightly better today although continues to be extremely dyspneic. Review of systems: Constitutional: No reports of fatigue, fever, or chills Cardiovascular: No reports of chest pain or palpitations Respiratory: Reports shortness of breath with occasional cough GI: No reports of nausea, vomiting, or diarrhea : No reports of dysuria or retention Neurovascular: No reports of weakness or numbness All medications have been reviewed 08/19/2020 Patient is seen and evaluated in follow-up with no real improvement of respiratory status. Patient continues to sat in the low 80s and drops quickly without oxygen. He she is currently maintained on 15 L high flow oxygen along with a nonrebreather over that and was able to obtain 90% oxygen saturation. Patient is currently sitting up at the bedside asking when he can go home. Discussed with the patient at length about respiratory status and his inability to come off oxygen at this time. White blood count elevated at 17.9 from yesterday. BMP within normal limits although blood glucose levels continue to be elevated. Patient is maintained on sliding scale along with long-acting and oral antidiabetic medications. Will continue to monitor as the dexamethasone may be a component of elevated glucose levels. Discussed with the patient about incentive spirometer and instructed to use at least 10 times every hour while awake. Patient currently denies any chest pain or palpitations. Patient is afebrile. No reports of nausea or vomiting patient states he does not have much of an appetite although is tolerating diet. 08/20/2020 Patient is seen in follow-up and continues to be on a nonrebreather and 15 L high flow oxygen and was found to be extremely anxious and hypoxic with saturations in the 70s earlier this morning Repeat chest x-ray done today shows right side pneumothorax along with pneumo mediastinum, subcutaneous emphysema. Pulmonary Dr. López is following and will be placing a chest tube this afternoon. Lovenox dose will be adjusted once chest tube is placed. White blood count elevated at 20.7. D-dimer was found to be 13.05. Review of systems: Constitutional: Anxious, no reports of fever, or chills Cardiovascular: No reports of chest pain or palpitations Respiratory: reports worsening shortness of breath and difficulty breathing GI: No reports of nausea, vomiting, or diarrhea : No reports of dysuria or retention Neurovascular: No reports of weakness or numbness All medications have been reviewed 08/21/2020 Patient is seen and evaluated and follow-up currently remains in the ICU as patient underwent right chest tube placement with Dr. López yesterday due to right pneumothorax with pneumomediastinum and subcutaneous emphysema. Patient is currently sitting up in the chair and on a nonrebreather and high flow oxygen at flow rate of 60% with an FiO2 of 85%. Patient is currently at 89% oxygen satura tion. Patient is also receiving a unit of fresh frozen plasma and is maintained on Lovenox. Blood sugars continue to be elevated and will continue to monitor with long-acting along with sliding scale. White Blood count 20.2. Chest x-ray this morning shows a stable right pneumothorax with right-sided chest tube noted and stable subcutaneous emphysema. Patient instructed to continue with incent sacha spirometer and semi-prone position with the right side up. Patient is somewhat anxious and agitated with remaining hospitalized. No reports of chest pain or palpitations. Denies any nausea or vomiting and is tolerating diet. Patient is currently afebrile. 08/22/2020 Patient has 2 chest tubes on the right side. Patient remains on airvo, there was a persistent leak in the previous chest tube. 08/23/2020 Patient the has bilateral pneumothorax right side has 2 chest tubes attached to wall suction and left-sided pneumothorax is 10-15% which is being monitored, cardiothoracic surgery evaluated the patient. Patient is presently on Bipap. Review of systems: Unable to obtain due to his clinical condition did All inpatient medications were reviewed and appropriate changes in these med ications as dictated in the interval history and assessment and plan. 08/24/2020 Patient currently remains on a BiPAP and has 2 right-sided chest tubes and awaiting for possible pigtail once more stabilized. Patient is currently unable to tolerate travel to [place] for interventional radiology to place the catheter. Chest x-ray today shows a moderate size recurrence of the right pneumothorax along with a small left apical pneumo that appears to be stable along with diffuse patchy infiltrates within bilateral lung ulloa. Pulmonary following closely. Discussed with pulmonary about the possibility of a transfer to a tertiary care center if patient's clinical status continues to deteriorate and unable to obtain the left side pigtail catheter. Remains in the ICU with close monitoring. Patient continues on IV antibiotics in the form of cefepime and vancomycin along with zinc, Lovenox, and dexamethasone. Review of systems: Constitutional: Reports fatigue, anxious, no reports of fever, or chills Cardiovascular: No reports of chest pain or palpitations Respiratory: Reports continued shortness of breath and cough GI: No reports of nausea, vomiting, or diarrhea : No reports of dysuria or retention Neurovascular: Reports weakness, no reports of numbness All medications have been reviewed 08/25/2020 Patient is seen and evaluated in follow-up and continues to be closely monitored in the ICU. Patient had a brief period Of respiratory arrest with attempts to pull out chest tubes after removing the BiPAP and was ultimately intubated. Patient was placed on sedation and appears much more calm at this time. Patient currently awaiting to receive a left side chest tube for the small pneumothorax with pulmonary. Patient continues to have 2 right-sided chest tubes at this time. White blood count elevated Review of systems: Unable to assess as patient is currently intubated and sedated. 08/26/20 Patient seen in follow up current remains in the ICU being closely monitored. Repeat chest xray today shows continued diffuse bilateral air space infiltrates with no pneumothoraces visible. Patient continues to have 3 chest tubes and intubated. Prognosis is poor. Code status discussed with the Bette Flores today and she would like him comfortable and made a no code. Consult placed to case management for hospice consult as she would like information about hospice and comfort measures. 08/27/2020 Patient is currently on back on ventilator. Sedated and paralyzed. Patient d oes have chest tubes in place. Chest x-ray showed stable portable chest. Bilateral chest tubes are redemonstrated. Bilateral less than 10% pneumothorax seen bilaterally. Laboratory data showed WBC 28.6, hemoglobin 13.0, platelets 157 Lymphocyte count 0.2 ABG showed pH of 7.19, PCO2 61 and PO2 6390% FiO2 Sodium 136, potassium 5.7 and chloride 108, BUN 64 and creatinine 3.17 Significantly elevated inflammatory markers. Patient is being continued on antibiotics in the form of cefepime and vancomycin. Currently on dexamethasone and completed remdesivir course. Continued on insulin dosing. Review of systems: Unable to obtain as patient is intubated and sedated. Objective - Vital Signs Vital signs: Vital Signs Temp 100.8 F H 08/27/20 04:00 Pulse 115 H 08/27/20 07:00 Resp 28 H 08/27/20 07:00 BP 137/59 08/27/20 07:00 Pulse Ox 90 L 08/27/20 07:00 Intake & Output 08/26/20 08/27/20 08/27/20 18:59 06:59 18:59 Intake Total 2313.218 2218.026 322.43 Output Total 765 590 50 Balance 8219.712 3755.026 272.43 Intake: IV 1400 1200 100 Cefepime 2 gm In Sodium 100 100 Chloride 0.9% 100 ml @ 25 mls/hr IVPB Q12HR [facility] Rx #:[id number] Sodium Chloride 0.9% 1, 1300 1100 100 000 ml @ 100 mls/hr IV . Q10H [facility] Rx#:[id number] Intake, IV Titration 351.218 386.026 170.43 Amount Cisatracurium 200 mg In 9.59 190.41 70.43 Sodium Chloride 0.9% 180 ml @ 1 MCG/KG/MIN 5.994 mls/hr IV .Q24H [facility] Rx#: [id number] propofoL 1,000 mg In 341.628 195.616 100 Empty Bag 1 bag @ Titrate IV .Q0M [facility] Rx#: [id number] Tube Feeding 562 572 52 Other 60 Output: Urine 765 590 50 Other: Voiding Method Indwelling Catheter Indwelling Catheter - Exam - Exam GENERAL: The patient is intubated and sedated and appears to be in no acute distress. HEENT: Pupils are round and equally reacting to light. EOMI. No scleral icterus. No conjunctival pallor. Normocephalic, atraumatic. No pharyngeal erythema. No thyromegaly. ET tube noted CARDIOVASCULAR: S1 and S2 present. No murmurs, rubs, or gallops. PULMONARY: Bilateral scattered rhonchi, no wheezing noted diminished air entry bilaterally worse on the right, tachypneic, 2 chest tubes noted on the right side and one on the left ABDOMEN: Soft, nontender, nondistended, normoactive bowel sounds. No palpable organomegaly. MUSCULOSKELETAL: No joint swelling or deformity. EXTREMITIES: No cyanosis, clubbing, or pedal edema. NEUROLOGICAL: Unable to fully assess as patient is intubated and sedated SKIN: No rashes. Note: Because of [place] [id number] isolation, some of the history and physical exam findings are indirect and obtained from nursing staff, and other physician examinations to avoid unnecessary contact with the patient. - Labs CBC & Chem 7: 08/27/20 05:53 08/27/20 05:53 Labs: Abnormal Lab Results - Last 24 Hours (Table) 08/26/20 08/26/20 08/26/20 Range/Units 15:05 15:05 17:29 WBC (3.8-10.6) k/uL Neutrophils # (1.3-7.7) k/uL Lymphocytes # (1.0-4.8) k/uL Monocytes # (0-1.0) k/uL ABG pH (7.35-7.45) ABG pCO2 (35-45) mmHg ABG pO2 (83-108) mmHg ABG Total CO2 (19-24) mmol/L ABG O2 Saturation (94-97) % Sodium (137-145) mmol/L Potassium (3.5-5.1) mmol/L Chloride (98-107) mmol/L BUN (9-20) mg/dL Creatinine 2.16 H (0.66-1.25) mg/dL Glucose (74-99) mg/dL POC Glucose (mg/dL) 272 H (75-99) mg/dL Calcium (8.4-10.2) mg/dL Ferritin (22.0-322.0) ng/mL Lactate Dehydrogenase (313-618) U/L Creatine Kinase (55-170) U/L C-Reactive Protein (<10.0) mg/L Total Protein (6.3-8.2) g/dL Albumin (3.5-5.0) g/dL Vancomycin Trough 36.2 H* ug/mL 08/26/20 08/27/20 08/27/20 Range/Units 23:17 05:36 05:53 WBC (3.8-10.6) k/uL Neutrophils # (1.3-7.7) k/uL Lymphocytes # (1.0-4.8) k/uL Monocytes # (0-1.0) k/uL ABG pH 7.19 L* (7.35-7.45) ABG pCO2 61 H (35-45) mmHg ABG pO2 63 L (83-108) mmHg ABG Total CO2 25 H (19-24) mmol/L ABG O2 Saturation 89.5 L (94-97) % Sodium 136 L (137-145) mmol/L Potassium 5.7 H (3.5-5.1) mmol/L Chloride 108 H (98-107) mmol/L BUN 64 H (9-20) mg/dL Creatinine 3.17 H (0.66-1.25) mg/dL Glucose 261 H (74-99) mg/dL POC Glucose (mg/dL) 282 H (75-99) mg/dL Calcium 7.4 L (8.4-10.2) mg/dL Ferritin 1400.6 H (22.0-322.0) ng/mL Lactate Dehydrogenase 1899 H (313-618) U/L Creatine Kinase 42 L (55-170) U/L C-Reactive Protein 156.2 H (<10.0) mg/L Total Protein 5.0 L (6.3-8.2) g/dL Albumin 2.2 L (3.5-5.0) g/dL Vancomycin Trough ug/mL 08/27/20 08/27/20 Range/Units 05:53 06:23 WBC 28.6 H (3.8-10.6) k/uL Neutrophils # 27.0 H (1.3-7.7) k/uL Lymphocytes # 0.2 L (1.0-4.8) k/uL Monocytes # 1.1 H (0-1.0) k/uL ABG pH (7.35-7.45) ABG pCO2 (35-45) mmHg ABG pO2 (83-108) mmHg ABG Total CO2 (19-24) mmol/L ABG O2 Saturation (94-97) % Sodium (137-145) mmol/L Potassium (3.5-5.1) mmol/L Chloride (98-107) mmol/L BUN (9-20) mg/dL Creatinine (0.66-1.25) mg/dL Glucose (74-99) mg/dL POC Glucose (mg/dL) 245 H (75-99) mg/dL Calcium (8.4-10.2) mg/dL Ferritin (22.0-322.0) ng/mL Lactate Dehydrogenase (313-618) U/L Creatine Kinase (55-170) U/L C-Reactive Protein (<10.0) mg/L Total Protein (6.3-8.2) g/dL Albumin (3.5-5.0) g/dL Vancomycin Trough ug/mL Microbiology - Last 24 Hours (Table) 08/25/20 04:14 Gram Stain - Final Sputum Sputum Culture - Final Staphylococcus aureus Kristen albicans Assessment and Plan Assessment: -Covid 19 infection/pneumonia:continue with Decadron continue with respiratory support. infectious disease following. Patient is intubated -Acute respiratory arrest with hypoxia -Right side pneumothorax patient has 2 chest tubes on the right side, small stable left-sided pneumothorax. chest tube on the left with pulmonary -Type 2 diabetes mellitus uncontrolled, continue on long-acting along with sliding scale. -mild hypovolemic hyponatremia, improved -Hypertension: -DVT prophylaxis with Lovenox -GI prophylaxis: Pepcid Plan: Continue current medications and continue to monitor closely. Patient currently in the ICU for close monitoring. Currently with 2 chest tubes on the right side with continued air leak and one chest tube on the left side. Patient is currently intubated and sedated. Maintained on IV antibiotics in the form of cefepime and vancomycin and will continue at this time. Pulmonary and infectious disease also following. Prognosis is extremely guarded and poor and discussed CODE STATUS with family. Bette Flores would like no code status and will discuss with hospice about comfort measures. This was discussed with pulmonary Dr. López as well. Will continue to monitor vital signs and labs closely. Fur ther recommendations to follow. Prognosis is poor and extremely guarded. Time with Patient: Greater than 30
[2020-08-27 23:53] LABS: Glucose,Whole Blood 362 mg/dL (75-99)
[2020-08-28] MEDS ORDERED: INSULIN ASPART (NovoLOG) 100 UNIT/ML VIAL SQ ONE (00:09)
[2020-08-28] MEDS: INSULIN ASPART (NovoLOG) 100 UNIT/ML VIAL SQ SCH ×2 (00:14→06:23)
--- NOTE | 2020-08-28 05:20 | PN ---
PROGRESS NOTE DATE OF SERVICE: 08/27/2020 REASON FOR FOLLOWUP: 1. COVID-19 infection. 2. Pneumonia. INTERVAL HISTORY: The patient is currently afebrile. The patient is hemodynamically stable, not on pressor support. FiO2 is currently 90%. No significant purulent secretions through the ET tube or any diarrhea reported by the nursing staff. PHYSICAL EXAMINATION: Blood pressure 142/71 with a pulse of 102, temperature 98.8. He is 91% on 90% FiO2. General description is a middle-aged male lying in bed in no distress. RESPIRATORY SYSTEM: Unlabored breathing with decreased breath sounds at the bases. No wheeze. HEART: S1, S2. Regular rate and rhythm. ABDOMEN: Soft, no tenderness. EXTREMITIES: Some trace edema of feet. LABS: Hemoglobin is 13, white count 28.6, BUN of 64, creatinine 3.17. Vancomycin random is 33.3. Sputum with MSSA and Kristen albicans. DIAGNOSTIC IMPRESSION AND PLAN: Patient with acute respiratory failure which is multifactorial in this patient who did have underlying COVID-19 infection for which the patient completed remdesivir therapy, currently on dexamethasone, Lovenox. Sputum with evidence of MSSA, vancomycin discontinued. Continue with cefepime and monitor his clinical course closely. MMODL / IJN: [id number] /
[2020-08-28 06:11] LABS: Glucose,Whole Blood 363 mg/dL (75-99)
[2020-08-28 06:59] LABS: Basophils # (A) 0.1 k/uL (0-0.2); Basophils % (A) 0 %; Eosinophils # (A) 0.1 k/uL (0-0.7); Eosinophils % (A) 0 %; HCT 43.4 % (39.0-53.0); HGB 13.3 gm/dL (13.0-17.5); Hypochromasia Marked; Lymphocytes # (A) 0.3 k/uL (1.0-4.8); Lymphocytes % (A) 1 %; MCH 28.2 pg (25.0-35.0); MCHC 30.7 g/dL (31.0-37.0); MCV 91.9 fL (80.0-100.0); Mean Platelet Volume 7.9; Monocytes % (A) 4 %; Neutrophils # (A) 21.7 k/uL (1.3-7.7); Neutrophils % (A) 93 %; Platelet Count 154 k/uL (150-450); Poikilocytosis Slight; RBC 4.72 m/uL (4.30-5.90); RDW 14.7 % (11.5-15.5); WBC 23.4 k/uL (3.8-10.6)
[2020-08-28] MEDS ORDERED: INSULIN DETEMIR (LEVEMIR) 100 UNIT/ML SYR SQ SCH ×2 (07:00→21:00)
[2020-08-28 07:12] LABS: ABG Base Excess -7.6 mmol/L; ABG HCO3 21 mmol/L (21-25); ABG Oxygen Saturation 89.5 % (94-97); ABG PCO2 59 mmHg (35-45); ABG PO2 66 mmHg (83-108); ABG TCO2 23 mmol/L (19-24); Allen Test Performed? Yes
[2020-08-28 07:28] LABS: D-Dimer 4.22 mg/L FEU (<0.60)
[2020-08-28] MEDS: CEFEPIME 2 GM in SODIUM CHLORIDE 0.9% 100 ML IVPB SCH ×2 (08:40→20:05)
[2020-08-28] MEDS: CHLORHEXIDINE GLUCONATE 15 ML CUP MUCOUS MEM SCH ×2 (08:41→20:05)
[2020-08-28] MEDS: ENOXAPARIN 40 MG/0.4 ML SYRINGE SQ SCH ×2 (08:42→20:04)
[2020-08-28] MEDS: ZINC SULFATE 220 MG CAP PO SCH (09:42)
[2020-08-28] MEDS: DEXAMETHASONE SOD PHOSPHATE 10 MG/ML 1 ML VIAL IV SCH (09:42)
[2020-08-28] MEDS: ASCORBIC ACID 500 MG TAB PO SCH (09:42)
[2020-08-28] MEDS: FAMOTIDINE 20 MG TAB PO SCH (09:42)
--- NOTE | 2020-08-28 09:42 | XR ---
EXAMINATION TYPE: XR chest 1V portable DATE OF EXAM: 08/28/2020 COMPARISON: 08/27/2020 INDICATION: Tube placement TECHNIQUE: Single frontal view of the chest is obtained. FINDINGS: The heart size is normal. The pulmonary vasculature is normal. Diffuse increased infiltrate is present bilaterally. This is worsening over the interval. Endotracheal tube tip is above the mauro. Bilateral chest tubes are present. No pneumothorax is evid ent. A second right-sided chest tube is pulled back slightly. Previous right apical pneumothorax has resolved. Subcutaneous emphysema is present bilaterally. Nasogastric tube transverses the thorax. IMPRESSION: 1. Diffuse increased lung markings worsening bilaterally. 2. Lines and catheters discussed above.
[2020-08-28] MEDS: lisinopriL 10 MG TAB PO SCH (09:44)
--- NOTE | 2020-08-28 11:13 | P.PN ---
Subjective Progress Note Date: 08/28/20 (Critical care time spent 35 minutes) Principal diagnosis: Right spontaneous pneumothorax status post 2 chest tubes Pneumomediastinum Left spontaneous pneumothorax Acute hypoxic respiratory failure Covid 19 pneumonia Type 2 diabetes mellitus Hypertension hypertensive cardiovascular disease Dehydration hypovolemia and hyponatremia Depression 08/28/2020, patient seen eval examined during the rounds labs reviewed medications reviewed, currently patient is on ventilator support PEEP of 10, 90% oxygen, assist control rate of 30, care blood gases reviewed, chest x-ray rev iewed, minimal bilateral apical pneumothorax is present, stable left-sided chest U no air leak is present, right-sided apical tube continued to bubble significant air leak, bottom minimal, patient is medically paralyzed with propofol and Nimbex, laboratory data reviewed discussed at length with the staff 08/27/2020, patient seen eval examined during the rounds sedated and medically paralyzed, right-sided chest tube is still significantly and leak upper tube is present no significantly is seen in the 1 and also left side, labs and arterial blood gases reviewed and ventilator adjusted, chest U was stable on chest x-ray, apical very small pneumothorax, 08/26/2020, patient seen eval examined during the rounds labs reviewed medications reviewed, chest tube continue to gently air, patient intubated, on full ventilator support noted evidence of hypercapnia with increase the ventilation C orders, chest x-ray reviewed trace pneumothorax on the apex cannot be excluded, basal bilateral dense infiltrate with mediastinal emphysema, no significant pneumothorax seen, labs reviewed, critical care time 35 minutes 08/25/2020, patient seen eval examined during the rounds labs reviewed medic ations reviewed care plan discussed with the staff, patient had a respiratory arrest earlier this morning during which he pulled out his BiPAP machine oxygen saturation dropped down into 20s, he also tried to pull out his chest tube, during that process he was intubated, postintubation chest x-ray shows minimal pneumothorax on the right side left-sided pneumothorax or anterior posterior cannot be excluded, extensive pneumomediastinum is present, patient currently and placed on the propofol at 75 mics was very restless and agitated, tachypneic tachycardic and eventually medically paralyzed with Nimbex drip, respiratory status slightly more stable patient is more calm and now hemodynamics stable, has been getting IV fluids, will need a chest tube on the the left side to avoid tension pneumothorax, keep the 2 chest tube on the right side 1 direct towards the apex appears to be stable however one at the base of the lung is still in, dense bilateral infiltrate are present, white cell count is up to 34,000, arterial blood gas and chest x-ray reviewed consistent with respiratory and metabolic acidosis, with severe hypoxia requiring PEEP with high ventilatory rate 08/24/2020, patient seen eval examined during the rounds labs reviewed medications reviewed sitting upright on the bed, remains on BiPAP with 100% oxygen, saturation 95%, patient desaturated into goes on the right side down and intermittently during supine posture, however do better with left side up, and sitting up as well, chest x-ray from today reviewed pneumothorax recurred on the right side in spite of 2 chest tube aiming towards the apex and the base with significant air leak, small left apical pneumothorax however is stable, patient is awaiting evaluation from thoracic surgery for possible VATS or transfer to tertiary care center, left side and INR will put a small bore pigtail catheter at the apex later on this morning, patient remains afebrile slightly tachycardic tachypneic, inflammatory parameters still up, prognosis is guarded care plan discussed directly and indirectly with primary service, staff, cardiothoracic and IR 08/23/2020, patient seen eval reexamined during the rounds labs reviewed medications reviewed, oxygen saturation remained stable, however patient couldn't tolerate off of BiPAP, he remains on BiPAP. All, chest x-ray reviewed, patient hasn't to right-sided chest tube air leak is present from both, left- sided residual small pneumothorax present along with subcutaneous emphysema and mediastinal emphysema, interventional radiology could not do a chest tube on the left side, they are planning to do it tomorrow, white cell count decreased to 19,000, d-dimer is still elevated inflammatory parameters elevated consistent with cytokine nita 08/22/2020, patient seen eval reexamined significant desaturation was more noted, sats dropped down to 55-70% spontaneously comes right back up though currently on 93% BiPAP, Semiprone with the right side up patient cannot tolerate airvo, desaturated easily remains tachypneic tachycardic hemodynamic status however remains stable, chest x-ray findings reviewed in spite of right-sided chest tube and persistent air leak there is a persistent spontaneous pneumothorax fairly large on the right side and small apical left sided sp ontaneous pneumothorax noted with pneumomediastinum and bilateral dense infiltrate at the bases, thoracic surgery has been consulted, patient may need an another chest tube on the right side versus VATS and preferably and of the small chest U was on the left side, will defer to expertise of thoracic surgery, labs reviewed medications reviewed care plan discussed at length with the staff 08/21/2020, patient seen eval examined during the rounds sitting upright in chair breathing slightly better oxygen saturation is 87-88%, patient is on high flow oxygen along with the nonrebreather mass, tachypneic tachycardic blood pressure is slightly high, patient has a right-sided chest tube is still leaking air, chest x-ray reviewed bilateral infiltrate is present with residual pneumothorax and subcu emphysema, labs from today reviewed white cell count remains elevated 20,000, renal functions stable, will attempt semi-prone with right side up, we will obtain an transfuse convalescent plasma 08/20/2020, patient seen eval examined during the rounds a labs reviewed medications reviewed this morning patient had problems with agitated anxiety and a prehension, oxygen saturation dropped down into 70s, rapid response was called and stat chest x-ray revealed presence of pneumothorax which is significant on the right side as well they may be a small mediastinal emphysema on the left side as well, patient has been made semi-prone with that oxygen saturation 100% nonrebreather mask improved to 92% patient is more calm, he remains afebrile temperature is 98.3 respiratory rate and mid to high 20s, weight is oxygen saturation 94%, chest x-ray finding reviewed 08/19/2020, patient seen eval examined during the rounds labs reviewed medications reviewed care plan discussed, patient is sitting upright on the bed on 100% nonrebreather mask, saturation remains marginal about 88%, remains afebrile, slightly anxious, advised based he hasn't to be on prone position as much as possible, labs reviewed white cell count is 17,000, patient remains on Remdesivir, Decadron, Lovenox August 18 2020, patient seen eval examined during the rounds is still on 5 L high flow oxygen, denies any chest pain breathing difficulties present, denies any cough or sputum production labs chest x-ray reviewed This is a 59-year-old male who has history of diabetes hypertension hypertensive cardiovascular disease and not feeling well for the last 5-6 days with cough and increased shortness of breath started with a sore throat, patient admitted into the hospital was spiking fever up to 101, oxygen saturation 90%, patient already has been started on REM doesn't wear and Decadron, his initial admit x-ray cystoscopy right midlung field and left lower lid feeding infiltrate patient gradually got worse initially has been on room air oxygen requirement keep on going up to 3 L and subsequently on 5 L high flow oxygen with that oxygen saturation is 93%, critical care time spent 35 minutes Objective - Vital Signs Vital signs: Vital Signs Temp 98.7 F 08/28/20 04:00 Pulse 96 08/28/20 10:00 Resp 34 H 08/28/20 10:00 BP 136/67 08/28/20 10:00 Pulse Ox 91 L 08/28/20 10:00 Intake & Output 08/27/20 08/28/20 08/28/20 18:59 06:59 18:59 Intake Total 2646.610 2139.288 688 Output Total 775 920 685 Balance 4204.854 3643.288 3 Weight 99.6 kg Intake: IV 1400 1200 450 Cefepime 2 gm In Sodium 100 100 100 Chloride 0.9% 100 ml @ 25 mls/hr IVPB Q12HR [facility] Rx #:[id number] Sodium Chloride 0.9% 1, 1300 1100 350 000 ml @ 100 mls/hr IV . Q10H [facility] Rx#:[id number] Intake, IV Titration 480.610 277.288 Amount Cisatracurium 200 mg In 244.256 Sodium Chloride 0.9% 180 ml @ 1 MCG/KG/MIN 5.994 mls/hr IV .Q24H [facility] Rx#: [id number] propofoL 1,000 mg In 236.354 277.288 Empty Bag 1 bag @ Titrate IV .Q0M [facility] Rx#: [id number] Tube Feeding 676 572 208 Other 90 90 30 Output: Chest Tube Drainage 200 Chest Tube Right 200 Urine 775 920 485 Other: Voiding Method Indwelling Catheter Indwelling Catheter Indwelling Catheter - Exam - Constitutional General appearance: Intubated medically paralyzed on full ventilator support - EENT Eyes: EOMI, PERRLA Ears: bilateral: normal - Neck Neck: normal ROM Carotids: bilateral: upstroke normal Thyroid: bilateral: normal size - Respiratory Respiratory: bilateral: diminished - Cardiovascular Rhythm: regular Heart sounds: normal: S1, S2 - Gastrointestinal General gastrointestinal: normal bowel sounds - Neurologic Neurologic: CNII-XII intact - Musculoskeletal Musculoskeletal: gait normal, generalized weakness, strength equal bilaterally - Psychiatric Psychiatric: Appears, now post medical paralysis - Labs CBC & Chem 7: 08/28/20 06:10 08/27/20 05:53 Labs: Abnormal Lab Results - Last 24 Hours (Table) 08/27/20 08/27/20 08/27/20 Range/Units 12:55 18:09 23:51 WBC (3.8-10.6) k/uL MCHC (31.0-37.0) g/dL Neutrophils # (1.3-7.7) k/uL Lymphocytes # (1.0-4.8) k/uL D-Dimer (<0.60) mg/L FEU ABG pH (7.35-7.45) ABG pCO2 (35-45) mmHg ABG pO2 (83-108) mmHg ABG O2 Saturation (94-97) % POC Glucose (mg/dL) 257 H 344 H 362 H (75-99) mg/dL 08/28/20 08/28/20 08/28/20 Range/Units 06:08 06:10 06:10 WBC 23.4 H (3.8-10.6) k/uL MCHC 30.7 L (31.0-37.0) g/dL Neutrophils # 21.7 H (1.3-7.7) k/uL Lymphocytes # 0.3 L (1.0-4.8) k/uL D-Dimer 4.22 H (<0.60) mg/L FEU ABG pH (7.35-7.45) ABG pCO2 (35-45) mmHg ABG pO2 (83-108) mmHg ABG O2 Saturation (94-97) % POC Glucose (mg/dL) 363 H (75-99) mg/dL 08/28/20 Range/Units 07:16 WBC (3.8-10.6) k/uL MCHC (31.0-37.0) g/dL Neutrophils # (1.3-7.7) k/uL Lymphocytes # (1.0-4.8) k/uL D-Dimer (<0.60) mg/L FEU ABG pH 7.16 L* (7.35-7.45) ABG pCO2 59 H (35-45) mmHg ABG pO2 66 L (83-108) mmHg ABG O2 Saturation 89.5 L (94-97) % POC Glucose (mg/dL) (75-99) mg/dL Microbiology - Last 24 Hours (Table) 08/25/20 04:14 Gram Stain - Final Sputum Sputum Culture - Final Staphylococcus aureus Kristen albicans Assessment and Plan Assessment: Status post respiratory arrest patient intubated Right spontaneous pneumothorax in spite of right-sided double chest tube p ersistent air leak and pneumothorax is present, cardiothoracic following Anterior posterior pneumothorax on the left side cannot be excluded Extensive Pneumomediastinum Left spontaneous pneumothorax, will put a small bore chest tube to avoid tension pneumothorax Acute hypoxic respiratory failure Covid 19 pneumonia Type 2 diabetes mellitus Hypertension hypertensive cardiovascular disease Dehydration hypovolemia and hyponatremia Depression Overall prognosis is very poor Plan: Chest tube assessment and plan for bilateral pneumothoraces and pneumomediastinum as above Continue antihypertensive agent from home Continue to follow sugars closely Chest tube to 20 cm water suction is still have significant air leak from both chest tube Ventilator adjustment as needed Status post Convalescent plasma Agree with supplemental oxygen and nonrebreather mask may need BiPAP as needed O follow closely Prone positioning as much as 16 hour a day either continuous or intermittent Deep breathing exercise incentive spirometry Increase activity as tolerated Continue Decadron and IV Remdesivir for 10 and 5 days respectively Further plan of care as per clinical response of the patient, overall prognosis is guarded
[2020-08-28 11:45] LABS: Glucose,Whole Blood 331 mg/dL (75-99)
[2020-08-28] MEDS ORDERED: INSULIN REGULAR BOLUS (FROM DRIP BAG) IV PRN (12:13)
[2020-08-28] MEDS: INSULIN REGULAR 100 UNIT in SODIUM CHLORIDE 0.9% 100 ML IV SCH ×3 (12:35→23:04)
[2020-08-28 13:17] LABS: Glucose,Whole Blood 300 mg/dL (75-99)
[2020-08-28 13:57] LABS: ALT 11 U/L (4-49); AST 33 U/L (17-59); Albumin 2.3 g/dL (3.5-5.0); Alkaline Phosphatase 109 U/L (38-126); Anion Gap -3 mmol/L; C Reactive Protein 40.5 mg/L (<10.0); Calcium 9.1 mg/dL (8.4-10.2); Carbon Dioxide 26 mmol/L (22-30); Chloride 111 mmol/L (98-107); Creatine Kinase 88 U/L (55-170); Glucose 386 mg/dL (74-99); LDH 1759 U/L (313-618); Sodium 134 mmol/L (137-145); Total Bilirubin 0.3 mg/dL (0.2-1.3); Total Protein 4.8 g/dL (6.3-8.2)
[2020-08-28 14:02] LABS: Glucose,Whole Blood 326 mg/dL (75-99)
[2020-08-28] MEDS: CISATRACURIUM 200 MG in SODIUM CHLORIDE 0.9% 180 ML IV SCH (14:22)
[2020-08-28 14:43] LABS: Blood Urea Nitrogen 103 mg/dL (9-20); Potassium 6.5 mmol/L (3.5-5.1)
[2020-08-28 15:23] LABS: Glucose,Whole Blood 285 mg/dL (75-99)
[2020-08-28 16:25] LABS: Glucose,Whole Blood 286 mg/dL (75-99)
[2020-08-28 17:14] LABS: Glucose,Whole Blood 263 mg/dL (75-99)
[2020-08-28] MEDS ORDERED: DEXTROSE 50% SYRINGE 50 ML IVP STA (17:18)
[2020-08-28] MEDS ORDERED: FUROSEMIDE 10 MG/ML 10 ML VIAL IV STA (17:18)
[2020-08-28] MEDS ORDERED: INSULIN REGULAR 100 UNIT/ML VIAL IV ONE (17:30)
[2020-08-28] MEDS: SODIUM POLYSTYRENE SULFONATE 15 GM/60 ML BOTTLE PO SCH (17:35)
[2020-08-28 18:15] LABS: Glucose,Whole Blood 265 mg/dL (75-99)
--- NOTE | 2020-08-28 18:42 | P.NPCON ---
History of Present Illness - Reason for Consult Consult date: 08/28/20 acute renal failure, hyperkalemia - Chief Complaint Shortness of breath - History of Present Illness Admitted on 08/14/2020 with 5 day history of fever and shortness of breath. Baseline creatinine 0.5-0.6 MG per DL. He covid-19 positive on ventilator. Not on any pressors. He was getting vancomycin, trough level of vancomycin on 10/26/2019 was 36. Creatinine started rising since then. Potassium was around 5.4 - 5.7 in the last 2 days and 6.5 today. He is making urine about 50-60 ML's an hour. No nausea vomiting diarrhea. No recent contrast studies. Vancomycin has been stopped currently on cefepime. He was also on lisinopril. Review of Systems ROS unobtainable: due to endotracheal tube Past Medical History Past Medical History: Diabetes Mellitus, Hypertension History of Any Multi-Drug Resistant Organisms: None Reported Past Surgical History: Appendectomy Past Psychological History: No Psychological Hx Reported Smoking Status: Never smoker Past Alcohol Use History: None Reported Past Drug Use History: None Reported Medications and Allergies Home Medications Medication Instructions Recorded Confirmed Type Acetaminophen Tab [Tylenol] 1,000 mg PO Q4-6H PRN 08/14/20 08/14/20 History Aspirin EC [Ecotrin Low Dose] 81 mg PO HS 08/14/20 08/14/20 History Insulin Aspart [NovoLOG] See Protocol SQ TID-W/MEALS 08/14/20 08/14/20 History Lisinopril-Hctz 10-12.5 mg 1 tab PO DAILY 08/14/20 08/14/20 History [Zestoretic 10-12.5] metFORMIN HCL 1,000 mg PO BID-W/MEALS 08/14/20 08/14/20 History Allergies Allergy/AdvReac Type Severity Reaction Status Date / Time No Known Allergies Allergy Verified 08/14/20 18:01 Physical Exam Vitals: Vital Signs Temp Pulse Resp BP Pulse Ox 08/28/20 18:00 98 34 H 108/51 91 L 08/28/20 17:30 98 34 H 112/53 92 L 08/28/20 17:00 101 H 34 H 127/60 92 L 08/28/20 16:30 103 H 34 H 122/55 92 L 08/28/20 16:00 98.5 F 102 H 34 H 134/58 90 L 08/28/20 15:51 34 H 91 L 08/28/20 15:30 106 H 34 H 150/70 90 L 08/28/20 15:00 105 H 34 H 139/61 91 L 08/28/20 14:30 105 H 34 H 142/64 92 L 08/28/20 14:00 104 H 34 H 134/63 92 L 08/28/20 13:30 105 H 34 H 144/65 92 L 08/28/20 13:00 101 H 34 H 141/61 90 L 08/28/20 12:30 98.6 F 101 H 34 H 140/54 85 L 08/28/20 12:00 98 34 H 116/93 85 L 08/28/20 11:30 96 34 H 132/67 91 L 08/28/20 11:00 97 34 H 129/67 91 L 08/28/20 10:30 98 34 H 136/70 92 L 08/28/20 10:00 96 34 H 136/67 91 L 08/28/20 09:30 101 H 34 H 141/77 91 L 08/28/20 09:00 100 34 H 144/70 90 L 08/28/20 08:30 102 H 34 H 168/75 91 L 08/28/20 08:20 34 H 91 L 08/28/20 08:00 97.8 F 99 34 H 133/62 91 L 08/28/20 07:00 101 H 30 H 136/64 91 L 08/28/20 06:00 104 H 331 H 131/62 91 L 08/28/20 05:00 101 H 30 H 143/72 92 L 08/28/20 04:00 98.7 F 97 30 H 130/67 94 L 08/28/20 03:00 90 30 H 103/53 93 L 08/28/20 02:00 94 30 H 109/55 93 L 08/28/20 01:00 100 30 H 132/63 92 L 08/28/20 00:05 100 30 H 131/63 93 L 08/28/20 00:00 98.6 F 101 H 30 H 134/63 93 L 08/27/20 23:00 102 H 30 H 142/71 91 L 08/27/20 22:00 105 H 12 140/69 91 L 08/27/20 21:00 105 H 30 H 148/71 91 L 08/27/20 20:00 98.8 F 107 H 30 H 153/76 92 L 08/27/20 19:00 107 H 30 H 159/72 91 L Intake and Output 08/28/20 08/28/20 08/28/20 06:59 14:59 22:59 Intake Total 1576 1453.203 879.288 Output Total 645 1065 220 Balance 931 388.203 659.288 Intake: IV 800 850 400 Cefepime 2 gm In Sodium 100 Chloride 0.9% 100 ml @ 25 mls/hr IVPB Q12HR [facility] Rx #:[id number] Sodium Chloride 0.9% 1, 800 750 400 000 ml @ 100 mls/hr IV . Q10H [facility] Rx#:[id number] Intake, IV Titration 300 127.203 181.288 Amount Cisatracurium 200 mg In 200 Sodium Chloride 0.9% 180 ml @ 1 MCG/KG/MIN 5.994 mls/hr IV .Q24H [facility] Rx#: [id number] Insulin Regular 100 unit 27.203 81.288 In Sodium Chloride 0.9% 100 ml @ Per Protocol IV .Q0M [facility] Rx#:[id number] propofoL 1,000 mg In 100 100 100 Empty Bag 1 bag @ Titrate IV .Q0M [facility] Rx#: [id number] Tube Feeding 416 416 208 Other 60 60 90 Output: Chest Tube Drainage 310 30 Chest Tube Right 200 0 Chest Tube Right Upper 50 20 Left Upper Anterior Chest 60 10 Urine 645 755 190 Other: Voiding Method Indwelling Catheter Indwelling Catheter Indwelling Catheter Weight 99.6 kg limited seondary to COVID, and to limit PPE Results - Lab Results Most recent lab results ABG pH 7.16 (7.35-7.45) L* 08/28/20 07:16 ABG pCO2 59 mmHg (35-45) H 08/28/20 07:16 ABG pO2 66 mmHg (83-108) L 08/28/20 07:16 ABG HCO3 21 mmol/L (21-25) 08/28/20 07:16 ABG O2 Saturation 89.5 % (94-97) L 08/28/20 07:16 Calcium 9.1 mg/dL (8.4-10.2) 08/28/20 12:58 Magnesium 1.9 mg/dL (1.6-2.3) 08/14/20 15:25 08/28/20 06:10 08/28/20 16:06 Assessment and Plan Assessment: #1 nonoliguric acute kidney injury secondary to toxic ATN from vancomycin. #2 hyperkalemia secondary to acute kidney injury. Also contribution from lisinopril #3 Covid pneumonia on ventilator. #4 respiratory acidosis with metabolic alkalosis #5 spontaneous pneumothorax status post chest tube #6 diabetes uncontrolled Plan: #1 medical management for hyperkalemia. Insulin/Lasix/Kayexalate. #2 agree with stopping lisinopril and vancomycin. #3 hemodynamically stable currently does not need any antihypertensive medications. #4 avoid nephrotoxic agents and hypotensive episodes. #5 no acute indication for renal replacement therapy at this time. Monitor labs every 6 hourly. #6 if hyperkalemia is refractory, we'll discuss with family for need for dialysis.
[2020-08-28 19:11] LABS: Glucose,Whole Blood 239 mg/dL (75-99)
[2020-08-28 19:16] LABS: Phosphorus 6.6 mg/dL (2.5-4.5); Potassium 5.8 mmol/L (3.5-5.1)
[2020-08-28] MEDS: SODIUM CHLORIDE 0.9% 1,000 ML IV SCH (20:02)
[2020-08-28] MEDS: ASPIRIN 81 MG PO SCH (20:04)
[2020-08-28 20:27] LABS: Glucose,Whole Blood 232 mg/dL (75-99)
[2020-08-28 21:17] LABS: Glucose,Whole Blood 226 mg/dL (75-99)
--- NOTE | 2020-08-28 21:55 | PN ---
PROGRESS NOTE DATE OF SERVICE: 08/28/2020 REASON FOR FOLLOWUP: COVID-19 infection and MSSA pneumonia. INTERVAL HISTORY: The patient is currently afebrile. The patient is hemodynamically stable; on low-dose pressor support, though. FiO2 is currently 100%. No significant purulent secretions through the ET or any diarrhea has been reported by the nursing staff. PHYSICAL EXAMINATION: Blood pressure 122/53 with a pulse of 90, temperature of 98. He is 92% on 100% FiO2. General description is a middle-aged male intubated on the vent. RESPIRATORY SYSTEM: Unlabored breathing with decreased breath sounds at the base. No wheeze. HEART: S1, S2. Regular rate and rhythm. ABDOMEN: Soft. EXTREMITIES: Some trace edema of feet. LABS: Hemoglobin 13.3, white count 23.4, BUN of 103 and creatinine 4.84. Potassium 6.5. DIAGNOSTIC IMPRESSION AND PLAN: 1. Patient with acute respiratory failure which is multifactorial initially this patient who did have COVID-19 pneumonia, for which the patient has completed his remdesivir therapy. The patient is currently on Decadron and Lovenox and respiratory support along with zinc. 2. Patient with methicillin-susceptible Staphylococcus aeruginosa pneumonia, covered with cefepime. The patient did have worsening of his kidney function. Nephrology has been consulted. We will monitor his clinical course closely. MMODL / IJN: [id number] /
[2020-08-28 22:19] LABS: Glucose,Whole Blood 207 mg/dL (75-99)
[2020-08-28 23:18] LABS: Glucose,Whole Blood 196 mg/dL (75-99)
[2020-08-29] MEDS: SODIUM POLYSTYRENE SULFONATE 15 GM/60 ML BOTTLE PO SCH (00:06)
[2020-08-29 00:28] LABS: Glucose,Whole Blood 191 mg/dL (75-99)
[2020-08-29] MEDS: CISATRACURIUM 200 MG in SODIUM CHLORIDE 0.9% 180 ML IV SCH ×3 (00:58→19:36)
[2020-08-29] MEDS: SODIUM CHLORIDE 0.9% 1,000 ML IV SCH ×3 (01:00→13:27)
[2020-08-29 01:14] LABS: Glucose,Whole Blood 176 mg/dL (75-99)
[2020-08-29 02:16] LABS: Glucose,Whole Blood 152 mg/dL (75-99)
[2020-08-29 02:54] LABS: Ferritin 1400.9 ng/mL (22.0-322.0)
[2020-08-29 03:01] LABS: Glucose,Whole Blood 126 mg/dL (75-99)
[2020-08-29 04:06] LABS: Glucose,Whole Blood 127 mg/dL (75-99)
[2020-08-29 05:06] LABS: ABG HCO3 19 mmol/L (21-25); ABG Oxygen Saturation 91.1 % (94-97); ABG PCO2 53 mmHg (35-45); ABG PO2 70 mmHg (83-108); ABG TCO2 21 mmol/L (19-24); Allen Test Performed? Yes
[2020-08-29 05:11] LABS: ABG PH 7.18 (7.35-7.45)
[2020-08-29] MEDS ORDERED: SODIUM BICARB 8.4% 50 ML SYR (1 MEQ/ML) IV STA (05:54)
[2020-08-29 06:04] LABS: Glucose,Whole Blood 141 mg/dL (75-99)
[2020-08-29 06:06] LABS: Basophils # (A) 0.2 k/uL (0-0.2); Basophils % (A) 1 %; Eosinophils # (A) 0.1 k/uL (0-0.7); Eosinophils % (A) 1 %; HCT 38.5 % (39.0-53.0); HGB 12.4 gm/dL (13.0-17.5); Hypochromasia Slight; Lymphocytes # (A) 0.2 k/uL (1.0-4.8); Lymphocytes % (A) 1 %; MCH 28.9 pg (25.0-35.0); MCHC 32.4 g/dL (31.0-37.0); MCV 89.3 fL (80.0-100.0); Monocytes # (A) 1.3 k/uL (0-1.0); Monocytes % (A) 6 %; Neutrophils # (A) 21.2 k/uL (1.3-7.7); Neutrophils % (A) 91 %; Platelet Count 171 k/uL (150-450); RBC 4.31 m/uL (4.30-5.90); RDW 14.4 % (11.5-15.5); WBC 23.4 k/uL (3.8-10.6)
[2020-08-29 06:29] LABS: C Reactive Protein 53.6 mg/L (<10.0); Calcium 7.4 mg/dL (8.4-10.2); D-Dimer 4.72 mg/L FEU (<0.60); Potassium 5.8 mmol/L (3.5-5.1)
[2020-08-29] MEDS ORDERED: INSULIN ASPART (NovoLOG) 100 UNIT/ML VIAL SQ SCH (06:30)
--- NOTE | 2020-08-29 06:43 | XR ---
EXAMINATION TYPE: XR chest 1V portable DATE OF EXAM: 08/29/2020 CLINICAL HISTORY: Difficulty breathing progress study. TECHNIQUE: Single AP portable semiupright view of the chest is obtained. COMPARISON: Chest x-ray from one day earlier and older studies. FINDINGS: Persistent 2 right-sided chest tubes and single left-sided chest tube. Stable endotracheal and orogastric tubes. No pneumothorax identified. Pneumomediastinum remains present. Overlying subcutaneous air is seen. Cardiac silhouette size stable and within normal limits. Persistent low lung volumes with bilateral increased opacities. Prominent multilevel spurring in the mid to lower thoracic spine. IMPRESSION: Low lung volumes with persistent bilateral diffuse edema and/or infiltrates. No pneumotho rax with bilateral chest tubes. No significant change from one day earlier. Consider ARDS on backgrou nd pulmonary infection.
[2020-08-29] MEDS: DEXTROSE 5% IN WATER 1,000 ML with SODIUM BICARB (1 MEQ/ML) 150 ML IV SCH (06:46)
[2020-08-29] MEDS: DEXAMETHASONE SOD PHOSPHATE 10 MG/ML 1 ML VIAL IV SCH (09:23)
[2020-08-29] MEDS: CHLORHEXIDINE GLUCONATE 15 ML CUP MUCOUS MEM SCH ×2 (09:23→20:47)
[2020-08-29] MEDS: ASCORBIC ACID 500 MG TAB PO SCH (09:23)
[2020-08-29] MEDS: FAMOTIDINE 20 MG TAB PO SCH (09:24)
[2020-08-29] MEDS: ZINC SULFATE 220 MG CAP PO SCH (09:24)
[2020-08-29] MEDS: ENOXAPARIN 40 MG/0.4 ML SYRINGE SQ SCH (09:24)
[2020-08-29] MEDS: CEFEPIME 2 GM in SODIUM CHLORIDE 0.9% 100 ML IVPB SCH (09:27)
[2020-08-29 09:39] LABS: Ferritin 1084.7 ng/mL (22.0-322.0)
--- NOTE | 2020-08-29 11:13 | P.PN ---
Subjective Progress Note Date: 08/29/20 (Critical care time 45 minutes) Principal diagnosis: Right spontaneous pneumothorax status post 2 chest tubes Pneumomediastinum Left spontaneous pneumothorax Acute hypoxic respiratory failure Covid 19 pneumonia Type 2 diabetes mellitus Hypertension hypertensive cardiovascular disease Dehydration hypovolemia and hyponatremia Depression 08/29/2020, patient seen eval examined during the rounds labs reviewed medications reviewed care plan discussed with the staff including RN and respiratory therapy at length, saturation remains borderline however they were 90% in the morning came down to 84% increasing PEEP causes rapid increase in peak air pressure and platue pressure up to 55 and 35, PEEP lowered to 12, patient remains on 100% oxygen with full assist control mode, arterial blood gases reviewed and significant metabolic acidosis appears to be related to acute renal failure, renal services have been consulted, patient appears to have nonoliguric acute renal failure likely acute tubular necrosis, patient remains gently hydrated to feed and given, remains afebrile, white cell count remains on higher side hemoglobin stable, arterial blood gases noted to be to be pH of 7.18 pCO2 53 pO2 70, 1 amp of bicarb along with bicarb drip have been initiated, potassium running on the higher side of 5.8, inflammatory parameters slightly down of thousand today LDH and C-reactive protein remains elevated, sputum for positive for a MSSA, vancomycin has been discontinued which may be contributing to acute kidney injury, patient remains on the propofol as well as Nimbex drip, patient has 2 chest tubes on the right side and one chest tube on the left side due to pneumomediastinum and bilateral pneumothorax they've been aching is minimal on left and right bottom chest tube significant on apical chest tube however 08/28/2020, patient seen eval examined during the rounds labs reviewed medications reviewed, currently patient is on ventilator support PEEP of 10, 90% oxygen, assist control rate of 30, care blood gases reviewed, chest x-ray reviewed, minimal bilateral apical pneumothorax is present, stable left-sided chest U no air leak is present, right-sided apical tube continued to bubble significant air leak, bottom minimal, patient is medically paralyzed with propofol and Nimbex, laboratory data reviewed discussed at length with the staff 08/27/2020, patient seen eval examined during the rounds sedated and medically paralyzed, right-sided chest tube is still significantly and leak upper tube is present no significantly is seen in the 1 and also left side, labs and arterial blood gases reviewed and ventilator adjusted, chest U was stable on est x-ray, apical very small pneumothorax, 08/26/2020, patient seen eval examined during the rounds labs reviewed medications reviewed, chest tube continue to gently air, patient intubated, on full ventilator support noted evidence of hypercapnia with increase the ventilation C orders, chest x-ray reviewed trace pneumothorax on the apex cannot be excluded, basal bilateral dense infiltrate with mediastinal emphysema, no significant pneumothorax seen, labs reviewed, critical care time 35 minutes 08/25/2020, patient seen eval examined during the rounds labs reviewed medications reviewed care plan discussed with the staff, patient had a respiratory arrest earlier this morning during which he pulled out his BiPAP machine oxygen saturation dropped down into 20s, he also tried to pull out his c hest tube, during that process he was intubated, postintubation chest x-ray shows minimal pneumothorax on the right side left-sided pneumothorax or anterior posterior cannot be excluded, extensive pneumomediastinum is present, patient currently and placed on the propofol at 75 mics was very restless and agitated, tachypneic tachycardic and eventually medically paralyzed with Nimbex drip, respiratory status slightly more stable patient is more calm and now hemodynamics stable, has been getting IV fluids, will need a chest tube on the the left side to avoid tension pneumothorax, keep the 2 chest tube on the right side 1 direct towards the apex appears to be stable however one at the base of the lung is still in, dense bilateral infiltrate are present, white cell count is up to 34,000, arterial blood gas and chest x-ray reviewed consistent with respiratory and metabolic acidosis, with severe hypoxia requiring PEEP with high ventilatory rate 08/24/2020, patient seen eval examined during the rounds labs reviewed medications reviewed sitting upright on the bed, remains on BiPAP with 100% oxygen, saturation 95%, patient desaturated into goes on the right side down and intermittently during supine posture, however do better with left side up, and sitting up as well, chest x-ray from today reviewed pneumothorax recurred on the right side in spite of 2 chest tube aiming towards the apex and the base with significant air leak, small left apical pneumothorax however is stable, patient is awaiting evaluation from thoracic surgery for possible VATS or transfer to tertiary care center, left side and INR will put a small bore pigtail catheter at the apex later on this morning, patient remains afebrile slightly tachycardic tachypneic, inflammatory parameters still up, prognosis is guarded care plan discussed directly and indirectly with primary service, staff, cardiothoracic an fabricio IR 08/23/2020, patient seen eval reexamined during the rounds labs reviewed medications reviewed, oxygen saturation remained stable, however patient couldn't tolerate off of BiPAP, he remains on BiPAP. All, chest x-ray reviewed, patient hasn't to right-sided chest tube air leak is present from both, left- sided residual small pneumothorax present along with subcutaneous emphysema and mediastinal emphysema, interventional radiology could not do a chest tube on the left side, they are planning to do it tomorrow, white cell count decreased to 19,000, d-dimer is still elevated inflammatory parameters elevated consistent with cytokine nita 08/22/2020, patient seen eval reexamined significant desaturation was more noted, sats dropped down to 55-70% spontaneously comes right back up though c urrently on 93% BiPAP, Semiprone with the right side up patient cannot tolerate airvo, desaturated easily remains tachypneic tachycardic hemodynamic status however remains stable, chest x-ray findings reviewed in spite of right-sided chest tube and persistent air leak there is a persistent spontaneous pneumothorax fairly large on the right side and small apical left sided spontaneous pneumothorax noted with pneumomediastinum and bilateral dense infiltrate at the bases, thoracic surgery has been consulted, patient may need an another chest tube on the right side versus VATS and preferably and of the small chest U was on the left side, will defer to expertise of thoracic surgery, labs reviewed medications reviewed care plan discussed at length with the staff 08/21/2020, patient seen eval examined during the rounds sitting upright in chair breathing slightly better oxygen saturation is 87-88%, patient is on high flow oxygen along with the nonrebreather mass, tachypneic tachycardic blood pressure is slightly high, patient has a right-sided chest tube is still leaking air, chest x-ray reviewed bilateral infiltrate is present with residual pneumothorax and subcu emphysema, labs from today reviewed white cell count remains elevated 20,000, renal functions stable, will attempt semi-prone with right side up, we will obtain an transfuse convalescent plasma 08/20/2020, patient seen eval examined during the rounds a labs reviewed medications reviewed this morning patient had problems with agitated anxiety and a prehension, oxygen saturation dropped down into 70s, rapid response was called and stat chest x-ray revealed presence of pneumothorax which is significant on the right side as well they may be a small mediastinal emphysema on the left side as well, patient has been made semi-prone with that oxygen saturation 100% nonrebreather mask improved to 92% patient is more calm, he remains afebrile temperature is 98.3 respiratory rate and mid to high 20s, weight is oxygen saturation 94%, chest x-ray finding reviewed 08/19/2020, patient seen eval examined during the rounds labs reviewed medications reviewed care plan discussed, patient is sitting upright on the bed on 100% nonrebreather mask, saturation remains marginal about 88%, remains afebrile, slightly anxious, advised based he hasn't to be on prone position as much as possible, labs reviewed white cell count is 17,000, patient remains on Remdesivir, Decadron, Lovenox August 18 2020, patient seen eval examined during the rounds is still on 5 L high flow oxygen, denies any chest pain breathing difficulties present, denies any cough or sputum production labs chest x-ray reviewed This is a 59-year-old male who has history of diabetes hypertension hypertensive cardiovascular disease and not feeling well for the last 5-6 days with cough and increased shortness of breath started with a sore throat, patient admitted into the hospital was spiking fever up to 101, oxygen saturation 90%, patient already has been started on REM doesn't wear and Decadron, his initial admit x-ray cystoscopy right midlung field and left lower lid feeding infiltrate patient gradually got worse initially has been on room air oxygen requirement keep on going up to 3 L and subsequently on 5 L high flow oxygen with that oxygen sa turation is 93%, critical care time spent 35 minutes Objective - Vital Signs Vital signs: Vital Signs Temp 98.6 F 08/29/20 08:00 Pulse 102 H 08/29/20 10:00 Resp 34 H 08/29/20 10:00 BP 145/74 08/29/20 10:00 Pulse Ox 88 L 08/29/20 10:00 Intake & Output 08/28/20 08/29/20 08/29/20 18:59 06:59 18:59 Intake Total 2332.491 2740.150 901.336 Output Total 1285 806 275 Balance 9612.462 6337.150 626.336 Weight 99.6 kg 117.8 kg Intake: IV 1250 1300 400 Cefepime 2 gm In Sodium 100 100 Chloride 0.9% 100 ml @ 25 mls/hr IVPB Q12HR [facility] Rx #:[id number] Dextrose 5% in Water 1, 200 000 ml @ 50 mls/hr IV . Q23H [facility] with Sodium Bicarb (1 Meq/ml) 150 ml Rx#:[id number] Sodium Chloride 0.9% 1, 1150 1200 200 000 ml @ 50 mls/hr IV . Q20H [facility] Rx#:[id number] Intake, IV Titration 308.491 726.150 263.336 Amount Cisatracurium 200 mg In 190.609 163.336 Sodium Chloride 0.9% 180 ml @ 1 MCG/KG/MIN 5.994 mls/hr IV .Q24H [facility] Rx#: [id number] Insulin Regular 100 unit 108.491 174.091 In Sodium Chloride 0.9% 100 ml @ Per Protocol IV .Q0M [facility] Rx#:[id number] propofoL 1,000 mg In 200 361.450 100 Empty Bag 1 bag @ Titrate IV .Q0M [facility] Rx#: [id number] Tube Feeding 624 624 208 Other 150 90 30 Output: Chest Tube Drainage 340 86 Chest Tube Right 200 70 Chest Tube Right Upper 70 Left Upper Anterior Chest 70 16 Urine 945 720 275 Other: Voiding Method Indwelling Catheter Indwelling Catheter Indwelling Catheter - Exam - Constitutional General appearance: Intubated medically paralyzed on full ventilator support - EENT Eyes: EOMI, PERRLA Ears: bilateral: normal - Neck Neck: normal ROM Carotids: bilateral: upstroke normal Thyroid: bilateral: normal size - Respiratory Respiratory: bilateral: diminished - Cardiovascular Rhythm: regular Heart sounds: normal: S1, S2 - Gastrointestinal General gastrointestinal: normal bowel sounds - Neurologic Neurologic: CNII-XII intact - Musculoskeletal Musculoskeletal: gait normal, generalized weakness, strength equal bilaterally - Psychiatric Psychiatric: Appears, now post medical paralysis - Labs CBC & Chem 7: 08/29/20 05:15 08/29/20 05:15 Labs: Abnormal Lab Results - Last 24 Hours (Table) 11/08/28/20 08/28/20 Range/Units 11:44 12:58 13:16 WBC (3.8-10.6) k/uL Hgb (13.0-17.5) gm/dL Hct (39.0-53.0) % Neutrophils # (1.3-7.7) k/uL Lymphocytes # (1.0-4.8) k/uL Monocytes # (0-1.0) k/uL D-Dimer (<0.60) mg/L FEU ABG pH (7.35-7.45) ABG pCO2 (35-45) mmHg ABG pO2 (83-108) mmHg ABG HCO3 (21-25) mmol/L ABG O2 Saturation (94-97) % Sodium 134 L (137-145) mmol/L Potassium 6.5 H* (3.5-5.1) mmol/L Chloride 111 H (98-107) mmol/L Carbon Dioxide (22-30) mmol/L BUN 103 H* (9-20) mg/dL Creatinine (0.66-1.25) mg/dL Glucose 386 H (74-99) mg/dL POC Glucose (mg/dL) 331 H 300 H (75-99) mg/dL Calcium (8.4-10.2) mg/dL Phosphorus (2.5-4.5) mg/dL Magnesium (1.6-2.3) mg/dL Ferritin (22.0-322.0) ng/mL Lactate Dehydrogenase 1759 H (313-618) U/L CK-MB (CK-2) (0.0-2.4) ng/mL C-Reactive Protein 40.5 H (<10.0) mg/L Total Protein 4.8 L (6.3-8.2) g/dL Albumin 2.3 L (3.5-5.0) g/dL 08/28/20 08/28/20 08/28/20 Range/Units 13:59 15:20 16:06 WBC (3.8-10.6) k/uL Hgb (13.0-17.5) gm/dL Hct (39.0-53.0) % Neutrophils # (1.3-7.7) k/uL Lymphocytes # (1.0-4.8) k/uL Monocytes # (0-1.0) k/uL D-Dimer (<0.60) mg/L FEU ABG pH (7.35-7.45) ABG pCO2 (35-45) mmHg ABG pO2 (83-108) mmHg ABG HCO3 (21-25) mmol/L ABG O2 Saturation (94-97) % Sodium (137-145) mmol/L Potassium (3.5-5.1) mmol/L Chloride (98-107) mmol/L Carbon Dioxide (22-30) mmol/L BUN (9-20) mg/dL Creatinine 4.84 H (0.66-1.25) mg/dL Glucose (74-99) mg/dL POC Glucose (mg/dL) 326 H 285 H (75-99) mg/dL Calcium (8.4-10.2) mg/dL Phosphorus (2.5-4.5) mg/dL Magnesium (1.6-2.3) mg/dL Ferritin 1400.9 H (22.0-322.0) ng/mL Lactate Dehydrogenase (313-618) U/L CK-MB (CK-2) (0.0-2.4) ng/mL C-Reactive Protein (<10.0) mg/L Total Protein (6.3-8.2) g/dL Albumin (3.5-5.0) g/dL 08/28/20 08/28/20 08/28/20 Range/Units 16:23 17:13 18:13 WBC (3.8-10.6) k/uL Hgb (13.0-17.5) gm/dL Hct (39.0-53.0) % Neutrophils # (1.3-7.7) k/uL Lymphocytes # (1.0-4.8) k/uL Monocytes # (0-1.0) k/uL D-Dimer (<0.60) mg/L FEU ABG pH (7.35-7.45) ABG pCO2 (35-45) mmHg ABG pO2 (83-108) mmHg ABG HCO3 (21-25) mmol/L ABG O2 Saturation (94-97) % Sodium (137-145) mmol/L Potassium (3.5-5.1) mmol/L Chloride (98-107) mmol/L Carbon Dioxide (22-30) mmol/L BUN (9-20) mg/dL Creatinine (0.66-1.25) mg/dL Glucose (74-99) mg/dL POC Glucose (mg/dL) 286 H 263 H 265 H (75-99) mg/dL Calcium (8.4-10.2) mg/dL Phosphorus (2.5-4.5) mg/dL Magnesium (1.6-2.3) mg/dL Ferritin (22.0-322.0) ng/mL Lactate Dehydrogenase (313-618) U/L CK-MB (CK-2) (0.0-2.4) ng/mL C-Reactive Protein (<10.0) mg/L Total Protein (6.3-8.2) g/dL Albumin (3.5-5.0) g/dL 08/28/20 08/28/20 08/28/20 Range/Units 18:34 19:09 20:15 WBC (3.8-10.6) k/uL Hgb (13.0-17.5) gm/dL Hct (39.0-53.0) % Neutrophils # (1.3-7.7) k/uL Lymphocytes # (1.0-4.8) k/uL Monocytes # (0-1.0) k/uL D-Dimer (<0.60) mg/L FEU ABG pH (7.35-7.45) ABG pCO2 (35-45) mmHg ABG pO2 (83-108) mmHg ABG HCO3 (21-25) mmol/L ABG O2 Saturation (94-97) % Sodium (137-145) mmol/L Potassium 5.8 H (3.5-5.1) mmol/L Chloride (98-107) mmol/L Carbon Dioxide (22-30) mmol/L BUN (9-20) mg/dL Creatinine (0.66-1.25) mg/dL Glucose (74-99) mg/dL POC Glucose (mg/dL) 239 H 232 H (75-99) mg/dL Calcium (8.4-10.2) mg/dL Phosphorus 6.6 H (2.5-4.5) mg/dL Magnesium 3.0 H (1.6-2.3) mg/dL Ferritin (22.0-322.0) ng/mL Lactate Dehydrogenase (313-618) U/L CK-MB (CK-2) (0.0-2.4) ng/mL C-Reactive Protein (<10.0) mg/L Total Protein (6.3-8.2) g/dL Albumin (3.5-5.0) g/dL 08/28/20 08/28/20 08/28/20 Range/Units 21:06 22:08 23:06 WBC (3.8-10.6) k/uL Hgb (13.0-17.5) gm/dL Hct (39.0-53.0) % Neutrophils # (1.3-7.7) k/uL Lymphocytes # (1.0-4.8) k/uL Monocytes # (0-1.0) k/uL D-Dimer (<0.60) mg/L FEU ABG pH (7.35-7.45) ABG pCO2 (35-45) mmHg ABG pO2 (83-108) mmHg ABG HCO3 (21-25) mmol/L ABG O2 Saturation (94-97) % Sodium (137-145) mmol/L Potassium (3.5-5.1) mmol/L Chloride (98-107) mmol/L Carbon Dioxide (22-30) mmol/L BUN (9-20) mg/dL Creatinine (0.66-1.25) mg/dL Glucose (74-99) mg/dL POC Glucose (mg/dL) 226 H 207 H 196 H (75-99) mg/dL Calcium (8.4-10.2) mg/dL Phosphorus (2.5-4.5) mg/dL Magnesium (1.6-2.3) mg/dL Ferritin (22.0-322.0) ng/mL Lactate Dehydrogenase (313-618) U/L CK-MB (CK-2) (0.0-2.4) ng/mL C-Reactive Protein (<10.0) mg/L Total Protein (6.3-8.2) g/dL Albumin (3.5-5.0) g/dL 08/29/20 08/29/20 08/29/20 Range/Units 00:15 01:02 02:05 WBC (3.8-10.6) k/uL Hgb (13.0-17.5) gm/dL Hct (39.0-53.0) % Neutrophils # (1.3-7.7) k/uL Lymphocytes # (1.0-4.8) k/uL Monocytes # (0-1.0) k/uL D-Dimer (<0.60) mg/L FEU ABG pH (7.35-7.45) ABG pCO2 (35-45) mmHg ABG pO2 (83-108) mmHg ABG HCO3 (21-25) mmol/L ABG O2 Saturation (94-97) % Sodium (137-145) mmol/L Potassium (3.5-5.1) mmol/L Chloride (98-107) mmol/L Carbon Dioxide (22-30) mmol/L BUN (9-20) mg/dL Creatinine (0.66-1.25) mg/dL Glucose (74-99) mg/dL POC Glucose (mg/dL) 191 H 176 H 152 H (75-99) mg/dL Calcium (8.4-10.2) mg/dL Phosphorus (2.5-4.5) mg/dL Magnesium (1.6-2.3) mg/dL Ferritin (22.0-322.0) ng/mL Lactate Dehydrogenase (313-618) U/L CK-MB (CK-2) (0.0-2.4) ng/mL C-Reactive Protein (<10.0) mg/L Total Protein (6.3-8.2) g/dL Albumin (3.5-5.0) g/dL 08/29/20 08/29/20 08/29/20 Range/Units 02:59 03:54 05:00 WBC (3.8-10.6) k/uL Hgb (13.0-17.5) gm/dL Hct (39.0-53.0) % Neutrophils # (1.3-7.7) k/uL Lymphocytes # (1.0-4.8) k/uL Monocytes # (0-1.0) k/uL D-Dimer (<0.60) mg/L FEU ABG pH 7.18 L* (7.35-7.45) ABG pCO2 53 H (35-45) mmHg ABG pO2 70 L (83-108) mmHg ABG HCO3 19 L (21-25) mmol/L ABG O2 Saturation 91.1 L (94-97) % Sodium (137-145) mmol/L Potassium (3.5-5.1) mmol/L Chloride (98-107) mmol/L Carbon Dioxide (22-30) mmol/L BUN (9-20) mg/dL Creatinine (0.66-1.25) mg/dL Glucose (74-99) mg/dL POC Glucose (mg/dL) 126 H 127 H (75-99) mg/dL Calcium (8.4-10.2) mg/dL Phosphorus (2.5-4.5) mg/dL Magnesium (1.6-2.3) mg/dL Ferritin (22.0-322.0) ng/mL Lactate Dehydrogenase (313-618) U/L CK-MB (CK-2) (0.0-2.4) ng/mL C-Reactive Protein (<10.0) mg/L Total Protein (6.3-8.2) g/dL Albumin (3.5-5.0) g/dL 08/29/20 08/29/20 08/29/20 Range/Units 05:15 05:15 05:15 WBC 23.4 H (3.8-10.6) k/uL Hgb 12.4 L (13.0-17.5) gm/dL Hct 38.5 L (39.0-53.0) % Neutrophils # 21.2 H (1.3-7.7) k/uL Lymphocytes # 0.2 L (1.0-4.8) k/uL Monocytes # 1.3 H (0-1.0) k/uL D-Dimer 4.72 H (<0.60) mg/L FEU ABG pH (7.35-7.45) ABG pCO2 (35-45) mmHg ABG pO2 (83-108) mmHg ABG HCO3 (21-25) mmol/L ABG O2 Saturation (94-97) % Sodium (137-145) mmol/L Potassium 5.8 H (3.5-5.1) mmol/L Chloride 112 H (98-107) mmol/L Carbon Dioxide 19 L (22-30) mmol/L BUN 108 H* (9-20) mg/dL Creatinine 5.53 H (0.66-1.25) mg/dL Glucose 133 H (74-99) mg/dL POC Glucose (mg/dL) (75-99) mg/dL Calcium 7.4 L (8.4-10.2) mg/dL Phosphorus (2.5-4.5) mg/dL Magnesium (1.6-2.3) mg/dL Ferritin 1084.7 H (22.0-322.0) ng/mL Lactate Dehydrogenase 1863 H (313-618) U/L CK-MB (CK-2) (0.0-2.4) ng/mL C-Reactive Protein 53.6 H (<10.0) mg/L Total Protein (6.3-8.2) g/dL Albumin (3.5-5.0) g/dL 08/29/20 08/29/20 Range/Units 05:15 06:03 WBC (3.8-10.6) k/uL Hgb (13.0-17.5) gm/dL Hct (39.0-53.0) % Neutrophils # (1.3-7.7) k/uL Lymphocytes # (1.0-4.8) k/uL Monocytes # (0-1.0) k/uL D-Dimer (<0.60) mg/L FEU ABG pH (7.35-7.45) ABG pCO2 (35-45) mmHg ABG pO2 (83-108) mmHg ABG HCO3 (21-25) mmol/L ABG O2 Saturation (94-97) % Sodium (137-145) mmol/L Potassium (3.5-5.1) mmol/L Chloride (98-107) mmol/L Carbon Dioxide (22-30) mmol/L BUN (9-20) mg/dL Creatinine (0.66-1.25) mg/dL Glucose (74-99) mg/dL POC Glucose (mg/dL) 141 H (75-99) mg/dL Calcium (8.4-10.2) mg/dL Phosphorus (2.5-4.5) mg/dL Magnesium (1.6-2.3) mg/dL Ferritin (22.0-322.0) ng/mL Lactate Dehydrogenase (313-618) U/L CK-MB (CK-2) 3.6 H (0.0-2.4) ng/mL C-Reactive Protein (<10.0) mg/L Total Protein (6.3-8.2) g/dL Albumin (3.5-5.0) g/dL Assessment and Plan Assessment: Acute hypoxic and hypercapnic respiratory failure Status post respiratory arrest patient intubated MSSA pneumonia Acute kidney injury likely related to acute tubular necrosis as well as vancomycin associated renal damage Right spontaneous pneumothorax in spite of right-sided double chest tube persistent air leak Anterior posterior pneumothorax on the left side status post left-sided chest tube Extensive Pneumomediastinum Left spontaneous pneumothorax, will put a small bore chest tube to avoid tension pneumothorax Acute hypoxic respiratory failure Covid 19 pneumonia Type 2 diabetes mellitus Hypertension hypertensive cardiovascular disease Dehydration hypovolemia and hyponatremia Depression Overall prognosis is very poor Plan: Chest tube assessment and plan for bilateral pneumothoraces and pneumomediastinum as above, continue suction 14 cm water on the right side 20 cm water and left side Bicarb drip Monitor renal output closely Continue antihypertensive agent from home Continue to follow sugars closely Observe off of vancomycin, continue cefepime however does needs to be adjusted for renal failure Ventilator adjustment as needed and adjustment of PEEP as noted above Status post Convalescent plasma Agree with supplemental oxygen and nonrebreather mask may need BiPAP as needed O follow closely Prone positioning as much as 16 hour a day either continuous or intermittent Deep breathing exercise incentive spirometry Increase activity as tolerated Continue Decadron and IV Remdesivir for 10 and 5 days respectively Further plan of care as per clinical response of the patient, overall prognosis is guarded Time with Patient: Greater than 30
[2020-08-29 11:24] LABS: ABG Base Excess -8.5 mmol/L; ABG HCO3 20 mmol/L (21-25); ABG Oxygen Saturation 88.4 % (94-97); ABG PCO2 55 mmHg (35-45); ABG PO2 65 mmHg (83-108); ABG TCO2 22 mmol/L (19-24); Allen Test Performed? Yes
[2020-08-29 11:26] LABS: Glucose,Whole Blood 289 mg/dL (75-99)
[2020-08-29] MEDS ORDERED: INSULIN REGULAR BOLUS (FROM DRIP BAG) IV PRN (11:27)
[2020-08-29] MEDS: INSULIN REGULAR 100 UNIT in SODIUM CHLORIDE 0.9% 100 ML IV SCH ×3 (12:11→21:04)
--- NOTE | 2020-08-29 12:52 | P.PN ---
Subjective Progress Note Date: 08/29/20 Follow-up for acute kidney injury and hyperkalemia. Good urine output. 2 L in the last 24 hours. Objective - Vital Signs Vital signs: Vital Signs Temp 98.6 F 08/29/20 08:00 Pulse 100 08/29/20 11:00 Resp 34 H 08/29/20 11:00 BP 114/59 08/29/20 11:00 Pulse Ox 88 L 08/29/20 11:00 Intake & Output 08/28/20 08/29/20 08/29/20 18:59 06:59 18:59 Intake Total 2332.491 2740.150 1053.336 Output Total 1285 806 345 Balance 6830.765 7598.150 708.336 Weight 99.6 kg 117.8 kg Intake: IV 1250 1300 500 Cefepime 2 gm In Sodium 100 100 Chloride 0.9% 100 ml @ 25 mls/hr IVPB Q12HR [facility] Rx #:[id number] Dextrose 5% in Water 1, 250 000 ml @ 50 mls/hr IV . Q23H [facility] with Sodium Bicarb (1 Meq/ml) 150 ml Rx#:[id number] Sodium Chloride 0.9% 1, 1150 1200 250 000 ml @ 50 mls/hr IV . Q20H [facility] Rx#:[id number] Intake, IV Titration 308.491 726.150 263.336 Amount Cisatracurium 200 mg In 190.609 163.336 Sodium Chloride 0.9% 180 ml @ 1 MCG/KG/MIN 5.994 mls/hr IV .Q24H [facility] Rx#: [id number] Insulin Regular 100 unit 108.491 174.091 In Sodium Chloride 0.9% 100 ml @ Per Protocol IV .Q0M [facility] Rx#:[id number] propofoL 1,000 mg In 200 361.450 100 Empty Bag 1 bag @ Titrate IV .Q0M [facility] Rx#: [id number] Tube Feeding 624 624 260 Other 150 90 30 Output: Chest Tube Drainage 340 86 20 Chest Tube Right 200 70 10 Chest Tube Right Upper 70 Left Upper Anterior Chest 70 16 10 Urine 945 720 325 Other: Voiding Method Indwelling Catheter Indwelling Catheter Indwelling Catheter - Exam Exam limited secondary to COVID-19 - Labs CBC & Chem 7: 08/29/20 05:15 08/29/20 05:15 Labs: Abnormal Lab Results - Last 24 Hours (Table) 08/28/20 08/28/20 08/28/20 Range/Units 12:58 13:16 13:59 WBC (3.8-10.6) k/uL Hgb (13.0-17.5) gm/dL Hct (39.0-53.0) % Neutrophils # (1.3-7.7) k/uL Lymphocytes # (1.0-4.8) k/uL Monocytes # (0-1.0) k/uL D-Dimer (<0.60) mg/L FEU ABG pH (7.35-7.45) ABG pCO2 (35-45) mmHg ABG pO2 (83-108) mmHg ABG HCO3 (21-25) mmol/L ABG O2 Saturation (94-97) % Sodium 134 L (137-145) mmol/L Potassium 6.5 H* (3.5-5.1) mmol/L Chloride 111 H (98-107) mmol/L Carbon Dioxide (22-30) mmol/L BUN 103 H* (9-20) mg/dL Creatinine (0.66-1.25) mg/dL Glucose 386 H (74-99) mg/dL POC Glucose (mg/dL) 300 H 326 H (75-99) mg/dL Calcium (8.4-10.2) mg/dL Phosphorus (2.5-4.5) mg/dL Magnesium (1.6-2.3) mg/dL Ferritin (22.0-322.0) ng/mL Lactate Dehydrogenase 1759 H (313-618) U/L CK-MB (CK-2) (0.0-2.4) ng/mL C-Reactive Protein 40.5 H (<10.0) mg/L Total Protein 4.8 L (6.3-8.2) g/dL Albumin 2.3 L (3.5-5.0) g/dL 08/28/20 08/28/20 08/28/20 Range/Units 15:20 16:06 16:23 WBC (3.8-10.6) k/uL Hgb (13.0-17.5) gm/dL Hct (39.0-53.0) % Neutrophils # (1.3-7.7) k/uL Lymphocytes # (1.0-4.8) k/uL Monocytes # (0-1.0) k/uL D-Dimer (<0.60) mg/L FEU ABG pH (7.35-7.45) ABG pCO2 (35-45) mmHg ABG pO2 (83-108) mmHg ABG HCO3 (21-25) mmol/L ABG O2 Saturation (94-97) % Sodium (137-145) mmol/L Potassium (3.5-5.1) mmol/L Chloride (98-107) mmol/L Carbon Dioxide (22-30) mmol/L BUN (9-20) mg/dL Creatinine 4.84 H (0.66-1.25) mg/dL Glucose (74-99) mg/dL POC Glucose (mg/dL) 285 H 286 H (75-99) mg/dL Calcium (8.4-10.2) mg/dL Phosphorus (2.5-4.5) mg/dL Magnesium (1.6-2.3) mg/dL Ferritin 1400.9 H (22.0-322.0) ng/mL Lactate Dehydrogenase (313-618) U/L CK-MB (CK-2) (0.0-2.4) ng/mL C-Reactive Protein (<10.0) mg/L Total Protein (6.3-8.2) g/dL Albumin (3.5-5.0) g/dL 08/28/20 08/28/20 08/28/20 Range/Units 17:13 18:13 18:34 WBC (3.8-10.6) k/uL Hgb (13.0-17.5) gm/dL Hct (39.0-53.0) % Neutrophils # (1.3-7.7) k/uL Lymphocytes # (1.0-4.8) k/uL Monocytes # (0-1.0) k/uL D-Dimer (<0.60) mg/L FEU ABG pH (7.35-7.45) ABG pCO2 (35-45) mmHg ABG pO2 (83-108) mmHg ABG HCO3 (21-25) mmol/L ABG O2 Saturation (94-97) % Sodium (137-145) mmol/L Potassium 5.8 H (3.5-5.1) mmol/L Chloride (98-107) mmol/L Carbon Dioxide (22-30) mmol/L BUN (9-20) mg/dL Creatinine (0.66-1.25) mg/dL Glucose (74-99) mg/dL POC Glucose (mg/dL) 263 H 265 H (75-99) mg/dL Calcium (8.4-10.2) mg/dL Phosphorus 6.6 H (2.5-4.5) mg/dL Magnesium 3.0 H (1.6-2.3) mg/dL Ferritin (22.0-322.0) ng/mL Lactate Dehydrogenase (313-618) U/L CK-MB (CK-2) (0.0-2.4) ng/mL C-Reactive Protein (<10.0) mg/L Total Protein (6.3-8.2) g/dL Albumin (3.5-5.0) g/dL 08/28/20 08/28/20 08/28/20 Range/Units 19:09 20:15 21:06 WBC (3.8-10.6) k/uL Hgb (13.0-17.5) gm/dL Hct (39.0-53.0) % Neutrophils # (1.3-7.7) k/uL Lymphocytes # (1.0-4.8) k/uL Monocytes # (0-1.0) k/uL D-Dimer (<0.60) mg/L FEU ABG pH (7.35-7.45) ABG pCO2 (35-45) mmHg ABG pO2 (83-108) mmHg ABG HCO3 (21-25) mmol/L ABG O2 Saturation (94-97) % Sodium (137-145) mmol/L Potassium (3.5-5.1) mmol/L Chloride (98-107) mmol/L Carbon Dioxide (22-30) mmol/L BUN (9-20) mg/dL Creatinine (0.66-1.25) mg/dL Glucose (74-99) mg/dL POC Glucose (mg/dL) 239 H 232 H 226 H (75-99) mg/dL Calcium (8.4-10.2) mg/dL Phosphorus (2.5-4.5) mg/dL Magnesium (1.6-2.3) mg/dL Ferritin (22.0-322.0) ng/mL Lactate Dehydrogenase (313-618) U/L CK-MB (CK-2) (0.0-2.4) ng/mL C-Reactive Protein (<10.0) mg/L Total Protein (6.3-8.2) g/dL Albumin (3.5-5.0) g/dL 08/28/20 08/28/20 08/29/20 Range/Units 22:08 23:06 00:15 WBC (3.8-10.6) k/uL Hgb (13.0-17.5) gm/dL Hct (39.0-53.0) % Neutrophils # (1.3-7.7) k/uL Lymphocytes # (1.0-4.8) k/uL Monocytes # (0-1.0) k/uL D-Dimer (<0.60) mg/L FEU ABG pH (7.35-7.45) ABG pCO2 (35-45) mmHg ABG pO2 (83-108) mmHg ABG HCO3 (21-25) mmol/L ABG O2 Saturation (94-97) % Sodium (137-145) mmol/L Potassium (3.5-5.1) mmol/L Chloride (98-107) mmol/L Carbon Dioxide (22-30) mmol/L BUN (9-20) mg/dL Creatinine (0.66-1.25) mg/dL Glucose (74-99) mg/dL POC Glucose (mg/dL) 207 H 196 H 191 H (75-99) mg/dL Calcium (8.4-10.2) mg/dL Phosphorus (2.5-4.5) mg/dL Magnesium (1.6-2.3) mg/dL Ferritin (22.0-322.0) ng/mL Lactate Dehydrogenase (313-618) U/L CK-MB (CK-2) (0.0-2.4) ng/mL C-Reactive Protein (<10.0) mg/L Total Protein (6.3-8.2) g/dL Albumin (3.5-5.0) g/dL 11/08/29/20 08/29/20 Range/Units 01:02 02:05 02:59 WBC (3.8-10.6) k/uL Hgb (13.0-17.5) gm/dL Hct (39.0-53.0) % Neutrophils # (1.3-7.7) k/uL Lymphocytes # (1.0-4.8) k/uL Monocytes # (0-1.0) k/uL D-Dimer (<0.60) mg/L FEU ABG pH (7.35-7.45) ABG pCO2 (35-45) mmHg ABG pO2 (83-108) mmHg ABG HCO3 (21-25) mmol/L ABG O2 Saturation (94-97) % Sodium (137-145) mmol/L Potassium (3.5-5.1) mmol/L Chloride (98-107) mmol/L Carbon Dioxide (22-30) mmol/L BUN (9-20) mg/dL Creatinine (0.66-1.25) mg/dL Glucose (74-99) mg/dL POC Glucose (mg/dL) 176 H 152 H 126 H (75-99) mg/dL Calcium (8.4-10.2) mg/dL Phosphorus (2.5-4.5) mg/dL Magnesium (1.6-2.3) mg/dL Ferritin (22.0-322.0) ng/mL Lactate Dehydrogenase (313-618) U/L CK-MB (CK-2) (0.0-2.4) ng/mL C-Reactive Protein (<10.0) mg/L Total Protein (6.3-8.2) g/dL Albumin (3.5-5.0) g/dL 08/29/20 08/29/20 08/29/20 Range/Units 03:54 05:00 05:15 WBC 23.4 H (3.8-10.6) k/uL Hgb 12.4 L (13.0-17.5) gm/dL Hct 38.5 L (39.0-53.0) % Neutrophils # 21.2 H (1.3-7.7) k/uL Lymphocytes # 0.2 L (1.0-4.8) k/uL Monocytes # 1.3 H (0-1.0) k/uL D-Dimer (<0.60) mg/L FEU ABG pH 7.18 L* (7.35-7.45) ABG pCO2 53 H (35-45) mmHg ABG pO2 70 L (83-108) mmHg ABG HCO3 19 L (21-25) mmol/L ABG O2 Saturation 91.1 L (94-97) % Sodium (137-145) mmol/L Potassium (3.5-5.1) mmol/L Chloride (98-107) mmol/L Carbon Dioxide (22-30) mmol/L BUN (9-20) mg/dL Creatinine (0.66-1.25) mg/dL Glucose (74-99) mg/dL POC Glucose (mg/dL) 127 H (75-99) mg/dL Calcium (8.4-10.2) mg/dL Phosphorus (2.5-4.5) mg/dL Magnesium (1.6-2.3) mg/dL Ferritin (22.0-322.0) ng/mL Lactate Dehydrogenase (313-618) U/L CK-MB (CK-2) (0.0-2.4) ng/mL C-Reactive Protein (<10.0) mg/L Total Protein (6.3-8.2) g/dL Albumin (3.5-5.0) g/dL 08/29/20 08/29/20 08/29/20 Range/Units 05:15 05:15 05:15 WBC (3.8-10.6) k/uL Hgb (13.0-17.5) gm/dL Hct (39.0-53.0) % Neutrophils # (1.3-7.7) k/uL Lymphocytes # (1.0-4.8) k/uL Monocytes # (0-1.0) k/uL D-Dimer 4.72 H (<0.60) mg/L FEU ABG pH (7.35-7.45) ABG pCO2 (35-45) mmHg ABG pO2 (83-108) mmHg ABG HCO3 (21-25) mmol/L ABG O2 Saturation (94-97) % Sodium (137-145) mmol/L Potassium 5.8 H (3.5-5.1) mmol/L Chloride 112 H (98-107) mmol/L Carbon Dioxide 19 L (22-30) mmol/L BUN 108 H* (9-20) mg/dL Creatinine 5.53 H (0.66-1.25) mg/dL Glucose 133 H (74-99) mg/dL POC Glucose (mg/dL) (75-99) mg/dL Calcium 7.4 L (8.4-10.2) mg/dL Phosphorus (2.5-4.5) mg/dL Magnesium (1.6-2.3) mg/dL Ferritin 1084.7 H (22.0-322.0) ng/mL Lactate Dehydrogenase 1863 H (313-618) U/L CK-MB (CK-2) 3.6 H (0.0-2.4) ng/mL C-Reactive Protein 53.6 H (<10.0) mg/L Total Protein (6.3-8.2) g/dL Albumin (3.5-5.0) g/dL 08/29/20 08/29/20 08/29/20 Range/Units 06:03 11:21 11:24 WBC (3.8-10.6) k/uL Hgb (13.0-17.5) gm/dL Hct (39.0-53.0) % Neutrophils # (1.3-7.7) k/uL Lymphocytes # (1.0-4.8) k/uL Monocytes # (0-1.0) k/uL D-Dimer (<0.60) mg/L FEU ABG pH 7.17 L* (7.35-7.45) ABG pCO2 55 H (35-45) mmHg ABG pO2 65 L (83-108) mmHg ABG HCO3 20 L (21-25) mmol/L ABG O2 Saturation 88.4 L (94-97) % Sodium (137-145) mmol/L Potassium (3.5-5.1) mmol/L Chloride (98-107) mmol/L Carbon Dioxide (22-30) mmol/L BUN (9-20) mg/dL Creatinine (0.66-1.25) mg/dL Glucose (74-99) mg/dL POC Glucose (mg/dL) 141 H 289 H (75-99) mg/dL Calcium (8.4-10.2) mg/dL Phosphorus (2.5-4.5) mg/dL Magnesium (1.6-2.3) mg/dL Ferritin (22.0-322.0) ng/mL Lactate Dehydrogenase (313-618) U/L CK-MB (CK-2) (0.0-2.4) ng/mL C-Reactive Protein (<10.0) mg/L Total Protein (6.3-8.2) g/dL Albumin (3.5-5.0) g/dL Assessment and Plan Assessment: #1 nonoliguric acute kidney injury secondary to toxic ATN from vancomycin. #2 hyperkalemia secondary to acute kidney injury. Also contribution from lisinopril #3 Covid pneumonia on ventilator. #4 respiratory and metabolic acidosis #5 spontaneous pneumothorax status post chest tube #6 diabetes uncontrolled Plan: #1 medical management for hyperkalemia. Insulin/Lasix/Kayexalate. Potassium still high. #2 agree with stopping lisinopril and vancomycin. #3 start Lasix 60 mg IV twice a day. #4 avoid nephrotoxic agents and hypotensive episodes. #5 no acute indication for renal replacement therapy at this time.
[2020-08-29 12:56] LABS: Glucose,Whole Blood 304 mg/dL (75-99)
[2020-08-29] MEDS: FUROSEMIDE 10 MG/ML 10 ML VIAL IV SCH ×2 (13:26→20:51)
[2020-08-29 14:25] LABS: Glucose,Whole Blood 305 mg/dL (75-99)
[2020-08-29 15:31] LABS: Glucose,Whole Blood 287 mg/dL (75-99)
[2020-08-29 16:29] LABS: Glucose,Whole Blood 290 mg/dL (75-99)
[2020-08-29 17:34] LABS: Glucose,Whole Blood 256 mg/dL (75-99)
[2020-08-29 17:34] LABS: Glucose,Whole Blood 273 mg/dL (75-99)
[2020-08-29 18:24] LABS: Glucose,Whole Blood 254 mg/dL (75-99)
--- NOTE | 2020-08-29 19:06 | P.PN ---
Subjective Progress Note Date: 08/28/20 Principal diagnosis: Covid 19 infection/pneumonia Vent dependent respiratory failure secondary to 1 Bilateral pneumothorax; status post chest tube placement 53-year-old male patient admitted for COVID-19 pneumonitis/sepsis; patient declined despite antibiotic therapy and treatment with high flow oxygen per nasal cannula and developed bilateral spontaneous pneumothorax with pneumomediastinum and subcutaneous emphysema for which he underwent chest tube placement; patient's respiratory status continued to deteriorate and he was ultimately intubated Patient remains in ICU intubated and mechanically ventilated Objective - Vital Signs Vital signs: Vital Signs Temp 98.6 F 08/28/20 00:00 Pulse 100 08/28/20 01:00 Resp 30 H 08/28/20 01:00 BP 132/63 08/28/20 01:00 Pulse Ox 92 L 08/28/20 01:00 Intake & Output 08/27/20 08/27/20 08/28/20 06:59 18:59 06:59 Intake Total 2218.026 2646.610 1097.288 Output Total 590 775 410 Balance 0769.359 4359.610 687.288 Intake: IV 1200 1400 600 Cefepime 2 gm In Sodium 100 100 100 Chloride 0.9% 100 ml @ 25 mls/hr IVPB Q12HR [facility] Rx #:[id number] Sodium Chloride 0.9% 1, 1100 1300 500 000 ml @ 100 mls/hr IV . Q10H [facility] Rx#:[id number] Intake, IV Titration 386.026 480.610 177.288 Amount Cisatracurium 200 mg In 190.41 244.256 Sodium Chloride 0.9% 180 ml @ 1 MCG/KG/MIN 5.994 mls/hr IV .Q24H [facility] Rx#: [id number] propofoL 1,000 mg In 195.616 236.354 177.288 Empty Bag 1 bag @ Titrate IV .Q0M [facility] Rx#: [id number] Tube Feeding 572 676 260 Other 60 90 60 Output: Urine 590 775 410 Other: Voiding Method Indwelling Catheter Indwelling Catheter Indwelling Catheter - Exam GENERAL: The patient is intubated and sedated and appears to be in no acute distress. HEENT: Pupils are round and equally reacting to light. EOMI. No scleral icterus. No conjunctival pallor. Normocephalic, atraumatic. No pharyngeal erythema. No thyromegaly. ET tube noted CARDIOVASCULAR: S1 and S2 present. No murmurs, rubs, or gallops. PULMONARY: Bilateral scattered rhonchi, no wheezing noted diminished air entry bilaterally worse on the right, tachypneic, 2 chest tubes noted on the right side and one on the left ABDOMEN: Soft, nontender, nondistended, normoactive bowel sounds. No palpable organomegaly. MUSCULOSKELETAL: No joint swelling or deformity. EXTREMITIES: No cyanosis, clubbing, or pedal edema. NEUROLOGICAL: Unable to fully assess as patient is intubated and sedated - Labs CBC & Chem 7: 08/29/20 05:15 08/29/20 05:15 Labs: Abnormal Lab Results - Last 24 Hours (Table) 08/27/20 08/27/20 08/27/20 Range/Units 05:36 05:53 05:53 WBC 28.6 H (3.8-10.6) k/uL Neutrophils # 27.0 H (1.3-7.7) k/uL Lymphocytes # 0.2 L (1.0-4.8) k/uL Monocytes # 1.1 H (0-1.0) k/uL ABG pH 7.19 L* (7.35-7.45) ABG pCO2 61 H (35-45) mmHg ABG pO2 63 L (83-108) mmHg ABG Total CO2 25 H (19-24) mmol/L ABG O2 Saturation 89.5 L (94-97) % Sodium 136 L (137-145) mmol/L Potassium 5.7 H (3.5-5.1) mmol/L Chloride 108 H (98-107) mmol/L BUN 64 H (9-20) mg/dL Creatinine 3.17 H (0.66-1.25) mg/dL Glucose 261 H (74-99) mg/dL POC Glucose (mg/dL) (75-99) mg/dL Calcium 7.4 L (8.4-10.2) mg/dL Ferritin 1400.6 H (22.0-322.0) ng/mL Lactate Dehydrogenase 1899 H (313-618) U/L Creatine Kinase 42 L (55-170) U/L C-Reactive Protein 156.2 H (<10.0) mg/L Total Protein 5.0 L (6.3-8.2) g/dL Albumin 2.2 L (3.5-5.0) g/dL 08/27/20 08/27/20 08/27/20 Range/Units 06:23 12:55 18:09 WBC (3.8-10.6) k/uL Neutrophils # (1.3-7.7) k/uL Lymphocytes # (1.0-4.8) k/uL Monocytes # (0-1.0) k/uL ABG pH (7.35-7.45) ABG pCO2 (35-45) mmHg ABG pO2 (83-108) mmHg ABG Total CO2 (19-24) mmol/L ABG O2 Saturation (94-97) % Sodium (137-145) mmol/L Potassium (3.5-5.1) mmol/L Chloride (98-107) mmol/L BUN (9-20) mg/dL Creatinine (0.66-1.25) mg/dL Glucose (74-99) mg/dL POC Glucose (mg/dL) 245 H 257 H 344 H (75-99) mg/dL Calcium (8.4-10.2) mg/dL Ferritin (22.0-322.0) ng/mL Lactate Dehydrogenase (313-618) U/L Creatine Kinase (55-170) U/L C-Reactive Protein (<10.0) mg/L Total Protein (6.3-8.2) g/dL Albumin (3.5-5.0) g/dL 08/27/20 Range/Units 23:51 WBC (3.8-10.6) k/uL Neutrophils # (1.3-7.7) k/uL Lymphocytes # (1.0-4.8) k/uL Monocytes # (0-1.0) k/uL ABG pH (7.35-7.45) ABG pCO2 (35-45) mmHg ABG pO2 (83-108) mmHg ABG Total CO2 (19-24) mmol/L ABG O2 Saturation (94-97) % Sodium (137-145) mmol/L Potassium (3.5-5.1) mmol/L Chloride (98-107) mmol/L BUN (9-20) mg/dL Creatinine (0.66-1.25) mg/dL Glucose (74-99) mg/dL POC Glucose (mg/dL) 362 H (75-99) mg/dL Calcium (8.4-10.2) mg/dL Ferritin (22.0-322.0) ng/mL Lactate Dehydrogenase (313-618) U/L Creatine Kinase (55-170) U/L C-Reactive Protein (<10.0) mg/L Total Protein (6.3-8.2) g/dL Albumin (3.5-5.0) g/dL Microbiology - Last 24 Hours (Table) 08/25/20 04:14 Gram Stain - Final Sputum Sputum Culture - Final Staphylococcus aureus Kristen albicans Assessment and Plan Assessment: -Covid 19 infection/pneumonia:continue with Decadron continue with respiratory support. infectious disease following. Patient is intubated -Acute respiratory arrest with hypoxia -Right side pneumothorax patient has 2 chest tubes on the right side, small stable left-sided pneumothorax. chest tube on the left with pulmonary -Type 2 diabetes mellitus uncontrolled, continue on long-acting along with sliding scale. -mild hypovolemic hyponatremia, improved -Hypertension: -DVT prophylaxis with Lovenox -GI prophylaxis: Pepcid Plan: Continue current medications and continue to monitor closely. Patient currently in the ICU for close monitoring. Currently with 2 chest tubes on the right side with continued air leak and one chest tube on the left side. Patient is currently intubated and sedated. Maintained on IV antibiotics in the form of cefepime and vancomycin and will continue at this time. Pulmonary and infectious disease also following. Prognosis is extremely guarded and poor and discussed CODE STATUS with family. Bette Flores would like no code status and will discuss with hospice about comfort measures. This was discussed with pulmonary Dr. López as well. Will continue to monitor vital signs and labs closely. Further recommendations to follow. Prognosis is poor and extremely guarded.
[2020-08-29 19:08] LABS: Glucose,Whole Blood 264 mg/dL (75-99)
--- NOTE | 2020-08-29 19:14 | P.PN ---
Subjective Progress Note Date: 08/29/20 Principal diagnosis: Covid 19 infection/pneumonia Vent dependent respiratory failure secondary to 1 Bilateral pneumothorax; status post chest tube placement 53-year-old male patient admitted for COVID-19 pneumonitis/sepsis; patient declined despite antibiotic therapy and treatment with high flow oxygen per nasal cannula and developed bilateral spontaneous pneumothorax with pneumomediastinum and subcutaneous emphysema for which he underwent chest tube placement; patient's respiratory status continued to deteriorate and he was ultimately intubated Patient remains in ICU intubated and mechanically ventilated 08/29/2020 patient seen seen and evaluated at bedside; remains intubated and mechanically ventilated;, saturation remains borderline however they were 90% in the morning came down to 84%; patient remains on 100% oxygen; arterial blood gases reviewed; metabolic acidosis appears to be related to acute renal failure; nephrology has been consulted by the pie chef for nonoliguric acute renal failure likely acute tubular necrosis; patient remains on gentle IV fluid hydration; received 1 amp of bicarb with bicarbonate drip; inflammatory markers are slightly improved; CRP remains elevated; sputum is positive for MSSA and vancomycin has been discontinued patient has 2 chest tubes on the right side and one chest tube on the left side due to pneumomediastinum and bilateral pneumothorax they've been aching is mi nimal on left and right bottom chest tube significant on apical chest tube however Objective - Vital Signs Vital signs: Vital Signs Temp 98.6 F 08/29/20 16:00 Pulse 96 08/29/20 19:00 Resp 34 H 08/29/20 19:00 BP 122/62 08/29/20 19:00 Pulse Ox 98 08/29/20 19:00 Intake & Output 08/29/20 08/29/20 08/30/20 06:59 18:59 06:59 Intake Total 2740.150 2499.811 152 Output Total 806 1055 50 Balance 2849.372 2627.811 102 Weight 117.8 kg Intake: IV 1300 1200 100 Cefepime 2 gm In Sodium 100 Chloride 0.9% 100 ml @ 25 mls/hr IVPB Q12HR MARJAN Rx #:[id number] Dextrose 5% in Water 1, 600 50 000 ml @ 50 mls/hr IV . Q23H MARJAN with Sodium Bicarb (1 Meq/ml) 150 ml Rx#:[id number] Sodium Chloride 0.9% 1, 1200 600 50 000 ml @ 50 mls/hr IV . Q20H MARJAN Rx#:[id number] Intake, IV Titration 726.150 585.811 Amount Cisatracurium 200 mg In 190.609 163.336 Sodium Chloride 0.9% 180 ml @ 1 MCG/KG/MIN 5.994 mls/hr IV .Q24H MARJAN Rx#: [id number] Insulin Regular 100 unit 174.091 In Sodium Chloride 0.9% 100 ml @ Per Protocol IV .Q0M MARJAN Rx#:[id number] Insulin Regular 100 unit 125.290 In Sodium Chloride 0.9% 100 ml @ Per Protocol IV .Q0M MARJAN Rx#:[id number] propofoL 1,000 mg In 361.450 297.185 Empty Bag 1 bag @ Titrate IV .Q0M MARJAN Rx#: [id number] Tube Feeding 624 624 52 Other 90 90 Output: Chest Tube Drainage 86 130 Chest Tube Right 70 70 Left Upper Anterior Chest 16 60 Urine 720 925 50 Other: Voiding Method Indwelling Catheter Indwelling Catheter - Exam GENERAL: The patient is intubated and sedated and appears to be in no acute distress. HEENT: Pupils are round and equally reacting to light. EOMI. No scleral icterus. No conjunctival pallor. Normocephalic, atraumatic. No pharyngeal erythema. No thyromegaly. ET tube noted CARDIOVASCULAR: S1 and S2 present. No murmurs, rubs, or gallops. PULMONARY: Bilateral scattered rhonchi, no wheezing noted diminished air entry bilaterally worse on the right, tachypneic, 2 chest tubes noted on the right side and one on the left ABDOMEN: Soft, nontender, nondistended, normoactive bowel sounds. No palpable organomegaly. MUSCULOSKELETAL: No joint swelling or deformity. EXTREMITIES: No cyanosis, clubbing, or pedal edema. NEUROLOGICAL: Unable to fully assess as patient is intubated and sedated - Labs CBC & Chem 7: 08/29/20 05:15 08/29/20 05:15 Labs: Abnormal Lab Results - Last 24 Hours (Table) 08/28/20 08/28/20 08/28/20 Range/Units 16:06 18:34 19:09 WBC (3.8-10.6) k/uL Hgb (13.0-17.5) gm/dL Hct (39.0-53.0) % Neutrophils # (1.3-7.7) k/uL Lymphocytes # (1.0-4.8) k/uL Monocytes # (0-1.0) k/uL D-Dimer (<0.60) mg/L FEU ABG pH (7.35-7.45) ABG pCO2 (35-45) mmHg ABG pO2 (83-108) mmHg ABG HCO3 (21-25) mmol/L ABG O2 Saturation (94-97) % Potassium 5.8 H (3.5-5.1) mmol/L Chloride (98-107) mmol/L Carbon Dioxide (22-30) mmol/L BUN (9-20) mg/dL Creatinine (0.66-1.25) mg/dL Glucose (74-99) mg/dL POC Glucose (mg/dL) 239 H (75-99) mg/dL Calcium (8.4-10.2) mg/dL Phosphorus 6.6 H (2.5-4.5) mg/dL Magnesium 3.0 H (1.6-2.3) mg/dL Ferritin 1400.9 H (22.0-322.0) ng/mL Lactate Dehydrogenase (313-618) U/L CK-MB (CK-2) (0.0-2.4) ng/mL C-Reactive Protein (<10.0) mg/L 08/28/20 08/28/20 08/28/20 Range/Units 20:15 21:06 22:08 WBC (3.8-10.6) k/uL Hgb (13.0-17.5) gm/dL Hct (39.0-53.0) % Neutrophils # (1.3-7.7) k/uL Lymphocytes # (1.0-4.8) k/uL Monocytes # (0-1.0) k/uL D-Dimer (<0.60) mg/L FEU ABG pH (7.35-7.45) ABG pCO2 (35-45) mmHg ABG pO2 (83-108) mmHg ABG HCO3 (21-25) mmol/L ABG O2 Saturation (94-97) % Potassium (3.5-5.1) mmol/L Chloride (98-107) mmol/L Carbon Dioxide (22-30) mmol/L BUN (9-20) mg/dL Creatinine (0.66-1.25) mg/dL Glucose (74-99) mg/dL POC Glucose (mg/dL) 232 H 226 H 207 H (75-99) mg/dL Calcium (8.4-10.2) mg/dL Phosphorus (2.5-4.5) mg/dL Magnesium (1.6-2.3) mg/dL Ferritin (22.0-322.0) ng/mL Lactate Dehydrogenase (313-618) U/L CK-MB (CK-2) (0.0-2.4) ng/mL C-Reactive Protein (<10.0) mg/L 08/28/20 08/29/20 08/29/20 Range/Units 23:06 00:15 01:02 WBC (3.8-10.6) k/uL Hgb (13.0-17.5) gm/dL Hct (39.0-53.0) % Neutrophils # (1.3-7.7) k/uL Lymphocytes # (1.0-4.8) k/uL Monocytes # (0-1.0) k/uL D-Dimer (<0.60) mg/L FEU ABG pH (7.35-7.45) ABG pCO2 (35-45) mmHg ABG pO2 (83-108) mmHg ABG HCO3 (21-25) mmol/L ABG O2 Saturation (94-97) % Potassium (3.5-5.1) mmol/L Chloride (98-107) mmol/L Carbon Dioxide (22-30) mmol/L BUN (9-20) mg/dL Creatinine (0.66-1.25) mg/dL Glucose (74-99) mg/dL POC Glucose (mg/dL) 196 H 191 H 176 H (75-99) mg/dL Calcium (8.4-10.2) mg/dL Phosphorus (2.5-4.5) mg/dL Magnesium (1.6-2.3) mg/dL Ferritin (22.0-322.0) ng/mL Lactate Dehydrogenase (313-618) U/L CK-MB (CK-2) (0.0-2.4) ng/mL C-Reactive Protein (<10.0) mg/L 08/29/20 08/29/20 08/29/20 Range/Units 02:05 02:59 03:54 WBC (3.8-10.6) k/uL Hgb (13.0-17.5) gm/dL Hct (39.0-53.0) % Neutrophils # (1.3-7.7) k/uL Lymphocytes # (1.0-4.8) k/uL Monocytes # (0-1.0) k/uL D-Dimer (<0.60) mg/L FEU ABG pH (7.35-7.45) ABG pCO2 (35-45) mmHg ABG pO2 (83-108) mmHg ABG HCO3 (21-25) mmol/L ABG O2 Saturation (94-97) % Potassium (3.5-5.1) mmol/L Chloride (98-107) mmol/L Carbon Dioxide (22-30) mmol/L BUN (9-20) mg/dL Creatinine (0.66-1.25) mg/dL Glucose (74-99) mg/dL POC Glucose (mg/dL) 152 H 126 H 127 H (75-99) mg/dL Calcium (8.4-10.2) mg/dL Phosphorus (2.5-4.5) mg/dL Magnesium (1.6-2.3) mg/dL Ferritin (22.0-322.0) ng/mL Lactate Dehydrogenase (313-618) U/L CK-MB (CK-2) (0.0-2.4) ng/mL C-Reactive Protein (<10.0) mg/L 08/29/20 08/29/20 08/29/20 Range/Units 05:00 05:15 05:15 WBC 23.4 H (3.8-10.6) k/uL Hgb 12.4 L (13.0-17.5) gm/dL Hct 38.5 L (39.0-53.0) % Neutrophils # 21.2 H (1.3-7.7) k/uL Lymphocytes # 0.2 L (1.0-4.8) k/uL Monocytes # 1.3 H (0-1.0) k/uL D-Dimer (<0.60) mg/L FEU ABG pH 7.18 L* (7.35-7.45) ABG pCO2 53 H (35-45) mmHg ABG pO2 70 L (83-108) mmHg ABG HCO3 19 L (21-25) mmol/L ABG O2 Saturation 91.1 L (94-97) % Potassium 5.8 H (3.5-5.1) mmol/L Chloride 112 H (98-107) mmol/L Carbon Dioxide 19 L (22-30) mmol/L BUN 108 H* (9-20) mg/dL Creatinine 5.53 H (0.66-1.25) mg/dL Glucose 133 H (74-99) mg/dL POC Glucose (mg/dL) (75-99) mg/dL Calcium 7.4 L (8.4-10.2) mg/dL Phosphorus (2.5-4.5) mg/dL Magnesium (1.6-2.3) mg/dL Ferritin 1084.7 H (22.0-322.0) ng/mL Lactate Dehydrogenase 1863 H (313-618) U/L CK-MB (CK-2) (0.0-2.4) ng/mL C-Reactive Protein 53.6 H (<10.0) mg/L 08/29/20 08/29/20 08/29/20 Range/Units 05:15 05:15 06:03 WBC (3.8-10.6) k/uL Hgb (13.0-17.5) gm/dL Hct (39.0-53.0) % Neutrophils # (1.3-7.7) k/uL Lymphocytes # (1.0-4.8) k/uL Monocytes # (0-1.0) k/uL D-Dimer 4.72 H (<0.60) mg/L FEU ABG pH (7.35-7.45) ABG pCO2 (35-45) mmHg ABG pO2 (83-108) mmHg ABG HCO3 (21-25) mmol/L ABG O2 Saturation (94-97) % Potassium (3.5-5.1) mmol/L Chloride (98-107) mmol/L Carbon Dioxide (22-30) mmol/L BUN (9-20) mg/dL Creatinine (0.66-1.25) mg/dL Glucose (74-99) mg/dL POC Glucose (mg/dL) 141 H (75-99) mg/dL Calcium (8.4-10.2) mg/dL Phosphorus (2.5-4.5) mg/dL Magnesium (1.6-2.3) mg/dL Ferritin (22.0-322.0) ng/mL Lactate Dehydrogenase (313-618) U/L CK-MB (CK-2) 3.6 H (0.0-2.4) ng/mL C-Reactive Protein (<10.0) mg/L 08/29/20 08/29/20 08/29/20 Range/Units 11:21 11:24 12:55 WBC (3.8-10.6) k/uL Hgb (13.0-17.5) gm/dL Hct (39.0-53.0) % Neutrophils # (1.3-7.7) k/uL Lymphocytes # (1.0-4.8) k/uL Monocytes # (0-1.0) k/uL D-Dimer (<0.60) mg/L FEU ABG pH 7.17 L* (7.35-7.45) ABG pCO2 55 H (35-45) mmHg ABG pO2 65 L (83-108) mmHg ABG HCO3 20 L (21-25) mmol/L ABG O2 Saturation 88.4 L (94-97) % Potassium (3.5-5.1) mmol/L Chloride (98-107) mmol/L Carbon Dioxide (22-30) mmol/L BUN (9-20) mg/dL Creatinine (0.66-1.25) mg/dL Glucose (74-99) mg/dL POC Glucose (mg/dL) 289 H 304 H (75-99) mg/dL Calcium (8.4-10.2) mg/dL Phosphorus (2.5-4.5) mg/dL Magnesium (1.6-2.3) mg/dL Ferritin (22.0-322.0) ng/mL Lactate Dehydrogenase (313-618) U/L CK-MB (CK-2) (0.0-2.4) ng/mL C-Reactive Protein (<10.0) mg/L 08/29/20 08/29/20 08/29/20 Range/Units 14:24 15:29 16:27 WBC (3.8-10.6) k/uL Hgb (13.0-17.5) gm/dL Hct (39.0-53.0) % Neutrophils # (1.3-7.7) k/uL Lymphocytes # (1.0-4.8) k/uL Monocytes # (0-1.0) k/uL D-Dimer (<0.60) mg/L FEU ABG pH (7.35-7.45) ABG pCO2 (35-45) mmHg ABG pO2 (83-108) mmHg ABG HCO3 (21-25) mmol/L ABG O2 Saturation (94-97) % Potassium (3.5-5.1) mmol/L Chloride (98-107) mmol/L Carbon Dioxide (22-30) mmol/L BUN (9-20) mg/dL Creatinine (0.66-1.25) mg/dL Glucose (74-99) mg/dL POC Glucose (mg/dL) 305 H 287 H 290 H (75-99) mg/dL Calcium (8.4-10.2) mg/dL Phosphorus (2.5-4.5) mg/dL Magnesium (1.6-2.3) mg/dL Ferritin (22.0-322.0) ng/mL Lactate Dehydrogenase (313-618) U/L CK-MB (CK-2) (0.0-2.4) ng/mL C-Reactive Protein (<10.0) mg/L 08/29/20 08/29/20 08/29/20 Range/Units 17:23 17:32 18:22 WBC (3.8-10.6) k/uL Hgb (13.0-17.5) gm/dL Hct (39.0-53.0) % Neutrophils # (1.3-7.7) k/uL Lymphocytes # (1.0-4.8) k/uL Monocytes # (0-1.0) k/uL D-Dimer (<0.60) mg/L FEU ABG pH (7.35-7.45) ABG pCO2 (35-45) mmHg ABG pO2 (83-108) mmHg ABG HCO3 (21-25) mmol/L ABG O2 Saturation (94-97) % Potassium (3.5-5.1) mmol/L Chloride (98-107) mmol/L Carbon Dioxide (22-30) mmol/L BUN (9-20) mg/dL Creatinine (0.66-1.25) mg/dL Glucose (74-99) mg/dL POC Glucose (mg/dL) 273 H 256 H 254 H (75-99) mg/dL Calcium (8.4-10.2) mg/dL Phosphorus (2.5-4.5) mg/dL Magnesium (1.6-2.3) mg/dL Ferritin (22.0-322.0) ng/mL Lactate Dehydrogenase (313-618) U/L CK-MB (CK-2) (0.0-2.4) ng/mL C-Reactive Protein (<10.0) mg/L Assessment and Plan Assessment: -Covid 19 infection/pneumonia:continue with Decadron continue with respiratory support. infectious disease following. Patient is intubated -Acute respiratory arrest with hypoxia -Right side pneumothorax patient has 2 chest tubes on the right side, small stable left-sided pneumothorax. chest tube on the left with pulmonary -Type 2 diabetes mellitus uncontrolled, continue on long-acting along with sl iding scale. -mild hypovolemic hyponatremia, improved -Hypertension: -DVT prophylaxis with Lovenox -GI prophylaxis: Pepcid Plan: Continue current medications and continue to monitor closely. Patient currently in the ICU for close monitoring. Currently with 2 chest tubes on the right side with continued air leak and one chest tube on the left side. Patient is currently intubated and sedated. Maintained on IV antibiotics in the form of cefepime and vancomycin and will continue at this time. Pulmonary and infectious disease also following. Prognosis is extremely guarded and poor and discussed CODE STATUS with family. Bette Flores would like no code status and will discuss with hospice about comfort measures. This was discussed with pulmonary Dr. López as well. Will continue to monitor vital signs and labs closely. Further recommendations to follow. Prognosis is poor and extremely guarded.
[2020-08-29] MEDS: ASPIRIN 81 MG PO SCH (20:47)
[2020-08-29 21:01] LABS: Glucose,Whole Blood 281 mg/dL (75-99)
[2020-08-29] MEDS: CEFEPIME 1 GM in SODIUM CHLORIDE 0.9% 50 ML IVPB SCH (21:56)
[2020-08-29 22:19] LABS: Glucose,Whole Blood 249 mg/dL (75-99)
[2020-08-29 23:21] LABS: Glucose,Whole Blood 218 mg/dL (75-99)
--- NOTE | 2020-08-29 23:37 | PN ---
PROGRESS NOTE DATE OF SERVICE: 08/29/2020 REASON FOR FOLLOWUP: COVID-19 pneumonia and MSSA pneumonia. INTERVAL HISTORY: Patient is currently afebrile. The patient is hemodynamically stable, not on pressor support. The patient is still on 100% FiO2 with 12 for PEEP. No significant purulent secretions in the ET or any diarrhea per the nursing staff. PHYSICAL EXAMINATION: Blood pressure 117/59, pulse 97, temperature 98.2. He is 98% on 100% FiO2. General description is a middle-aged male intubated on the vent. Respiratory system: Unlabored breathing, decreased breath sounds in the bases. No wheeze. Heart S1, S2. Regular rate and rhythm. Abdomen soft. Extremities: 2+ edema of the feet. LABS: Hemoglobin is 12.4, white count 23.4. BUN of creatinine 5.53. Inflammatory makers still elevated. DIAGNOSTIC IMPRESSION AND PLAN: Patient admitted to the hospital with acute COVID-19 pneumonia in this patient who did have a bilateral pneumothorax requiring chest tube placement with acute respiratory failure on the vent. Sputum culture shows MSSA and the patient is currently on cefepime to continue along with dexamethasone and steroids and respiratory support. Overall prognosis remains to be guarded. MMODL / IJN: [id number] /
[2020-08-30 00:33] LABS: Glucose,Whole Blood 234 mg/dL (75-99)
[2020-08-30 01:21] LABS: Glucose,Whole Blood 195 mg/dL (75-99)
[2020-08-30] MEDS: INSULIN REGULAR 100 UNIT in SODIUM CHLORIDE 0.9% 100 ML IV SCH ×4 (01:31→21:02)
[2020-08-30 02:19] LABS: Glucose,Whole Blood 165 mg/dL (75-99)
[2020-08-30 03:19] LABS: Glucose,Whole Blood 128 mg/dL (75-99)
[2020-08-30 04:24] LABS: Calcium 7.2 mg/dL (8.4-10.2); Phosphorus 8.4 mg/dL (2.5-4.5)
[2020-08-30 04:29] LABS: Basophils # (A) 0.1 k/uL (0-0.2); Basophils % (A) 1 %; Eosinophils # (A) 0.2 k/uL (0-0.7); Eosinophils % (A) 1 %; HCT 36.3 % (39.0-53.0); HGB 11.4 gm/dL (13.0-17.5); Hypochromasia Slight; Lymphocytes # (A) 0.3 k/uL (1.0-4.8); Lymphocytes % (A) 2 %; MCH 28.2 pg (25.0-35.0); MCHC 31.6 g/dL (31.0-37.0); MCV 89.2 fL (80.0-100.0); Monocytes # (A) 1.1 k/uL (0-1.0); Monocytes % (A) 6 %; Neutrophils # (A) 16.7 k/uL (1.3-7.7); Neutrophils % (A) 90 %; Platelet Count 158 k/uL (150-450); RBC 4.06 m/uL (4.30-5.90); RDW 14.6 % (11.5-15.5); WBC 18.6 k/uL (3.8-10.6)
[2020-08-30 04:39] LABS: Glucose,Whole Blood 146 mg/dL (75-99)
[2020-08-30 04:43] LABS: Potassium 5.4 mmol/L (3.5-5.1)
[2020-08-30] MEDS: DEXTROSE 5% IN WATER 1,000 ML with SODIUM BICARB (1 MEQ/ML) 150 ML IV SCH (04:56)
[2020-08-30 05:15] LABS: Glucose,Whole Blood 134 mg/dL (75-99)
[2020-08-30 06:12] LABS: Glucose,Whole Blood 116 mg/dL (75-99)
[2020-08-30 06:28] LABS: Allen Test Performed? Yes
[2020-08-30 07:06] LABS: Glucose,Whole Blood 151 mg/dL (75-99)
--- NOTE | 2020-08-30 07:20 | XR ---
EXAMINATION TYPE: XR chest 1V portable DATE OF EXAM: 08/30/2020 CLINICAL HISTORY: Difficulty breathing and pneumothorax progress study. TECHNIQUE: Single AP portable semiupright view of the chest is obtained. COMPARISON: Chest x-ray from one day earlier and older studies. FINDINGS: Persistent 2 right-sided chest tubes and single left-sided chest tube. Stable endotracheal and orogastric tubes. No pneumothorax identified. Subcutaneous air right supraclavicular region rede monstrated. Pneumomediastinum remains present over left heart border. Cardiac silhouette size stable and within n ormal limits. Persistent low lung volumes with bilateral increased opacities including worsening righ t lower lung consolidation. Prominent multilevel spurring in the mid to lower thoracic spine. IMPRESSION: Low lung volumes with persistent bilateral diffuse edema and/or infiltrates. No pneumotho rax with bilateral chest tubes. Worsening right lower lung consolidation noted otherwise no significa nt change from one day earlier. Consider ARDS progression.
[2020-08-30] MEDS: FAMOTIDINE 20 MG TAB PO SCH (07:47)
[2020-08-30] MEDS: FUROSEMIDE 10 MG/ML 10 ML VIAL IV SCH ×2 (07:48→20:41)
[2020-08-30] MEDS: CHLORHEXIDINE GLUCONATE 15 ML CUP MUCOUS MEM SCH ×2 (07:48→20:41)
[2020-08-30] MEDS: DEXAMETHASONE SOD PHOSPHATE 10 MG/ML 1 ML VIAL IV SCH (07:48)
[2020-08-30] MEDS: ENOXAPARIN 60 MG/0.6 ML SYRINGE SQ SCH (07:49)
[2020-08-30] MEDS: ASCORBIC ACID 500 MG TAB PO SCH (07:49)
[2020-08-30] MEDS: ZINC SULFATE 220 MG CAP PO SCH (07:49)
[2020-08-30] MEDS: CISATRACURIUM 200 MG in SODIUM CHLORIDE 0.9% 180 ML IV SCH ×2 (07:49→16:51)
[2020-08-30 08:02] LABS: Glucose,Whole Blood 164 mg/dL (75-99)
[2020-08-30 09:02] LABS: Glucose,Whole Blood 144 mg/dL (75-99)
[2020-08-30 09:08] LABS: ABG Base Excess -8.3 mmol/L; ABG HCO3 20 mmol/L (21-25); ABG Oxygen Saturation 93.6 % (94-97); ABG PCO2 54 mmHg (35-45); ABG PO2 90 mmHg (83-108); ABG TCO2 22 mmol/L (19-24)
[2020-08-30] MEDS: CEFEPIME 1 GM in SODIUM CHLORIDE 0.9% 50 ML IVPB SCH ×2 (09:25→20:41)
[2020-08-30] MEDS ORDERED: SODIUM BICARB 8.4% 50 ML SYR (1 MEQ/ML) IV STA (10:02)
[2020-08-30 10:33] LABS: Glucose,Whole Blood 147 mg/dL (75-99)
[2020-08-30] MEDS: SODIUM CHLORIDE 0.9% 1,000 ML IV SCH (10:36)
[2020-08-30 11:16] LABS: Glucose,Whole Blood 168 mg/dL (75-99)
--- NOTE | 2020-08-30 12:03 | P.PN ---
Subjective Progress Note Date: 08/30/20 (Critical care time 35 minutes) Principal diagnosis: Right spontaneous pneumothorax status post 2 chest tubes Pneumomediastinum Left spontaneous pneumothorax Acute hypoxic respiratory failure Covid 19 pneumonia Type 2 diabetes mellitus Hypertension hypertensive cardiovascular disease Dehydration hypovolemia and hyponatremia Depression 08/30/2020, patient seen eval examined during the rounds medically sedated and paralyzed of propofol and Nimbex, on full ventilator support with assist control rate of 24 EP is 1200% oxygen which has been reduced to 90% now, saturation 91- 92%, bilateral chest tubes are present minimal air leak on the left side, right- sided apical tube still having persistent nearly however distal intermittently, tolerating tube feed well, labs reviewed arterial blood gas reviewed as well along with radiographic findings patient BUN/creatinine continue to go up consistent with acute tubular necrosis likely related to covid 19 sepsis, arterial blood gases revealed pH is 7.18 pCO2 54 pO2 90, patient improved to 5.4, BUN/creatinine up to 132 and 5.86 08/29/2020, patient seen eval examined during the rounds labs reviewed medications reviewed care plan discussed with the staff including RN and respiratory therapy at length, saturation remains borderline however they were 90% in the morning came down to 84% increasing PEEP causes rapid increase in peak air pressure and platue pressure up to 55 and 35, PEEP lowered to 12, patient remains on 100% oxygen with full assist control mode, arterial blood gases reviewed and significant metabolic acidosis appears to be related to acute renal failure, renal services have been consulted, patient appears to have nonoliguric acute renal failure likely acute tubular necrosis, patient remains gently hydrated to feed and given, remains afebrile, white cell count remains on higher side hemoglobin stable, arterial blood gases noted to be to be pH of 7.18 pCO2 53 pO2 70, 1 amp of bicarb along with bicarb drip have been initiated, potassium running on the higher side of 5.8, inflammatory parameters slightly down of thousand today LDH and C-reactive protein remains elevated, sputum for positive for a MSSA, vancomycin has been discontinued which may be contributing to acute kidney injury, patient remains on the propofol as well as Nimbex drip, patient has 2 chest tubes on the right side and one chest tube on the left side due to pneumomediastinum and bilateral pneumothorax they've been aching is minimal on left and right bottom chest tube significant on apical chest tube however 08/28/2020, patient seen eval examined during the rounds labs reviewed medications reviewed, currently patient is on ventilator support PEEP of 10, 90% oxygen, assist control rate of 30, care blood gases reviewed, chest x-ray reviewed, minimal bilateral apical pneumothorax is present, stable left-sided chest U no air leak is present, right-sided apical tube continued to bubble significant air leak, bottom minimal, patient is medically paralyzed with propofol and Nimbex, laboratory data reviewed discussed at length with the staff 08/27/2020, patient seen eval examined during the rounds sedated and medically paralyzed, right-sided chest tube is still significantly and leak upper tube is present no significantly is seen in the 1 and also left side, labs and arterial blood gases reviewed and ventilator adjusted, chest U was stable on chest x-ray, apical very small pneumothorax, 08/26/2020, patient seen eval examined during the rounds labs reviewed medications reviewed, chest tube continue to gently air, patient intubated, on full ventilator support noted evidence of hypercapnia with increase the ventilation C orders, chest x-ray reviewed trace pneumothorax on the apex cannot be excluded, basal bilateral dense infiltrate with mediastinal emphysema, no significant pneumothorax seen, labs reviewed, critical care time 35 minutes 08/25/2020, patient seen eval examined during the rounds labs reviewed medications reviewed care plan discussed with the staff, patient had a respiratory arrest earlier this morning during which he pulled out his BiPAP machine oxygen saturation dropped down into 20s, he also tried to pull out his chest tube, during that process he was intubated, postintubation chest x-ray shows minimal pneumothorax on the right side left-sided pneumothorax or anterior posterior cannot be excluded, extensive pneumomediastinum is present, patient currently and placed on the propofol at 75 mics was very restless and agitated, tachypneic tachycardic and eventually medically paralyzed with Nimbex drip, respiratory status slightly more stable patient is more calm and now hemodynamics stable, has been getting IV fluids, will need a chest tube on the the left side to avoid tension pneumothorax, keep the 2 chest tube on the right side 1 direct towards the apex appears to be stable however one at the base of the lung is still in, dense bilateral infiltrate are present, white cell count is up to 34,000, arterial blood gas and chest x-ray reviewed consistent with respiratory and metabolic acidosis, with severe hypoxia requiring PEEP with high ventilatory rate 08/24/2020, patient seen eval examined during the rounds labs reviewed medications reviewed sitting upright on the bed, remains on BiPAP with 100% oxygen, saturation 95%, patient desaturated into goes on the right side down and intermittently during supine posture, however do better with left side up, and sitting up as well, chest x-ray from today reviewed pneumothorax recurred on the right side in spite of 2 chest tube aiming towards the apex and the base with significant air leak, small left apical pneumothorax however is stable, patient is awaiting evaluation from thoracic surgery for possible VATS or transfer to tertiary care center, left side and INR will put a small bore pigtail catheter at the apex later on this morning, patient remains afebrile slightly tachycardic tachypneic, inflammatory parameters still up, prognosis is guarded care plan discussed directly and indirectly with primary service, staff, cardiothoracic and IR 08/23/2020, patient seen eval reexamined during the rounds labs reviewed medications reviewed, oxygen saturation remained stable, however patient couldn 't tolerate off of BiPAP, he remains on BiPAP. All, chest x-ray reviewed, patient hasn't to right-sided chest tube air leak is present from both, left- sided residual small pneumothorax present along with subcutaneous emphysema and mediastinal emphysema, interventional radiology could not do a chest tube on the left side, they are planning to do it tomorrow, white cell count decreased to 19,000, d-dimer is still elevated inflammatory parameters elevated consistent with cytokine nita 08/22/2020, patient seen eval reexamined significant desaturation was more noted, sats dropped down to 55-70% spontaneously comes right back up though currently on 93% BiPAP, Semiprone with the right side up patient cannot tolerate airvo, desaturated easily remains tachypneic tachycardic hemodynamic status ho wever remains stable, chest x-ray findings reviewed in spite of right-sided chest tube and persistent air leak there is a persistent spontaneous pneumothorax fairly large on the right side and small apical left sided spontaneous pneumothorax noted with pneumomediastinum and bilateral dense infiltrate at the bases, thoracic surgery has been consulted, patient may need an another chest tube on the right side versus VATS and preferably and of the small chest U was on the left side, will defer to expertise of thoracic surgery, labs reviewed medications reviewed care plan discussed at length with the staff 08/21/2020, patient seen eval examined during the rounds sitting upright in chair breathing slightly better oxygen saturation is 87-88%, patient is on high flow oxygen along with the nonrebreather mass, tachypneic tachycardic blood pressure is slightly high, patient has a right-sided chest tube is still leaking air, chest x-ray reviewed bilateral infiltrate is present with residual pneum othorax and subcu emphysema, labs from today reviewed white cell count remains elevated 20,000, renal functions stable, will attempt semi-prone with right side up, we will obtain an transfuse convalescent plasma 08/20/2020, patient seen eval examined during the rounds a labs reviewed medications reviewed this morning patient had problems with agitated anxiety and a prehension, oxygen saturation dropped down into 70s, rapid response was called and stat chest x-ray revealed presence of pneumothorax which is significant on the right side as well they may be a small mediastinal emphysema on the left side as well, patient has been made semi-prone with that oxygen saturation 100% nonrebreather mask improved to 92% patient is more calm, he remains afebrile temperature is 98.3 respiratory rate and mid to high 20s, weight is oxygen saturation 94%, chest x-ray finding reviewed 08/19/2020, patient seen eval examined during the rounds labs reviewed medications reviewed care plan discussed, patient is sitting upright on the bed on 100% nonrebreather mask, saturation remains marginal about 88%, remains afebrile, slightly anxious, advised based he hasn't to be on prone position as much as possible, labs reviewed white cell count is 17,000, patient remains on Remdesivir, Decadron, Lovenox August 18 2020, patient seen eval examined during the rounds is still on 5 L high flow oxygen, denies any chest pain breathing difficulties present, denies any cough or sputum production labs chest x-ray reviewed This is a 59-year-old male who has history of diabetes hypertension hypertensive cardiovascular disease and not feeling well for the last 5-6 days with cough and increased shortness of breath started with a sore throat, patient admitted into the hospital was spiking fever up to 101, oxygen saturation 90%, patient already has been started on REM doesn't wear and Decadron, his initial admit x-ray cystoscopy right midlung field and left lower lid feeding infiltrate patient gradually got worse initially has been on room air oxygen requirement keep on going up to 3 L and subsequently on 5 L high flow oxygen with that oxygen saturation is 93%, critical care time spent 35 minutes Objective - Vital Signs Vital signs: Vital Signs Temp 98.4 F 08/30/20 08:00 Pulse 96 08/30/20 11:00 Resp 34 H 08/30/20 11:00 BP 131/62 08/30/20 11:00 Pulse Ox 90 L 08/30/20 11:00 Intake & Output 08/29/20 08/30/20 08/30/20 18:59 06:59 18:59 Intake Total 2499.811 2798.206 1165.127 Output Total 1055 530 410 Balance 7674.364 0346.206 755.127 Weight 116.6 kg Intake: IV 1200 1300 600 Cefepime 2 gm In Sodium 100 100 Chloride 0.9% 100 ml @ 25 mls/hr IVPB Q12HR [facility] Rx #:[id number] Dextrose 5% in Water 1, 600 600 250 000 ml @ 50 mls/hr IV . Q23H [facility] with Sodium Bicarb (1 Meq/ml) 150 ml Rx#:[id number] Sodium Chloride 0.9% 1, 600 600 250 000 ml @ 50 mls/hr IV . Q20H [facility] Rx#:[id number] Intake, IV Titration 585.811 970.206 275.127 Amount Cisatracurium 200 mg In 163.336 371.728 Sodium Chloride 0.9% 180 ml @ 1 MCG/KG/MIN 5.994 mls/hr IV .Q24H [facility] Rx#: [id number] Insulin Regular 100 unit 125.290 200.115 75.127 In Sodium Chloride 0.9% 100 ml @ Per Protocol IV .Q0M [facility] Rx#:[id number] propofoL 1,000 mg In 297.185 398.363 200 Empty Bag 1 bag @ Titrate IV .Q0M [facility] Rx#: [id number] Tube Feeding 624 468 260 Other 90 60 30 Output: Chest Tube Drainage 130 120 Chest Tube Right 70 70 Left Upper Anterior Chest 60 50 Urine 925 530 290 Other: Voiding Method Indwelling Catheter Indwelling Catheter Indwelling Catheter - Exam - Constitutional General appearance: Intubated medically paralyzed on full ventilator support - EENT Eyes: EOMI, PERRLA Ears: bilateral: normal - Neck Neck: normal ROM Carotids: bilateral: upstroke normal Thyroid: bilateral: normal size - Respiratory Respiratory: bilateral: diminished - Cardiovascular Rhythm: regular Heart sounds: normal: S1, S2 - Gastrointestinal General gastrointestinal: normal bowel sounds - Neurologic Neurologic: CNII-XII intact - Musculoskeletal Musculoskeletal: gait normal, generalized weakness, strength equal bilaterally - Psychiatric Psychiatric: Appears, now post medical paralysis - Labs CBC & Chem 7: 08/30/20 03:41 08/30/20 03:41 Labs: Abnormal Lab Results - Last 24 Hours (Table) 08/29/20 08/29/20 08/29/20 Range/Units 12:55 14:24 15:29 WBC (3.8-10.6) k/uL RBC (4.30-5.90) m/uL Hgb (13.0-17.5) gm/dL Hct (39.0-53.0) % Neutrophils # (1.3-7.7) k/uL Lymphocytes # (1.0-4.8) k/uL Monocytes # (0-1.0) k/uL ABG pH (7.35-7.45) ABG pCO2 (35-45) mmHg ABG HCO3 (21-25) mmol/L ABG O2 Saturation (94-97) % Potassium (3.5-5.1) mmol/L Chloride (98-107) mmol/L Carbon Dioxide (22-30) mmol/L BUN (9-20) mg/dL Creatinine (0.66-1.25) mg/dL Glucose (74-99) mg/dL POC Glucose (mg/dL) 304 H 305 H 287 H (75-99) mg/dL Calcium (8.4-10.2) mg/dL Phosphorus (2.5-4.5) mg/dL 08/29/20 08/29/20 08/29/20 Range/Units 16:27 17:23 17:32 WBC (3.8-10.6) k/uL RBC (4.30-5.90) m/uL Hgb (13.0-17.5) gm/dL Hct (39.0-53.0) % Neutrophils # (1.3-7.7) k/uL Lymphocytes # (1.0-4.8) k/uL Monocytes # (0-1.0) k/uL ABG pH (7.35-7.45) ABG pCO2 (35-45) mmHg ABG HCO3 (21-25) mmol/L ABG O2 Saturation (94-97) % Potassium (3.5-5.1) mmol/L Chloride (98-107) mmol/L Carbon Dioxide (22-30) mmol/L BUN (9-20) mg/dL Creatinine (0.66-1.25) mg/dL Glucose (74-99) mg/dL POC Glucose (mg/dL) 290 H 273 H 256 H (75-99) mg/dL Calcium (8.4-10.2) mg/dL Phosphorus (2.5-4.5) mg/dL 08/29/20 08/29/20 08/29/20 Range/Units 18:22 19:06 21:00 WBC (3.8-10.6) k/uL RBC (4.30-5.90) m/uL Hgb (13.0-17.5) gm/dL Hct (39.0-53.0) % Neutrophils # (1.3-7.7) k/uL Lymphocytes # (1.0-4.8) k/uL Monocytes # (0-1.0) k/uL ABG pH (7.35-7.45) ABG pCO2 (35-45) mmHg ABG HCO3 (21-25) mmol/L ABG O2 Saturation (94-97) % Potassium (3.5-5.1) mmol/L Chloride (98-107) mmol/L Carbon Dioxide (22-30) mmol/L BUN (9-20) mg/dL Creatinine (0.66-1.25) mg/dL Glucose (74-99) mg/dL POC Glucose (mg/dL) 254 H 264 H 281 H (75-99) mg/dL Calcium (8.4-10.2) mg/dL Phosphorus (2.5-4.5) mg/dL 08/29/20 08/29/20 08/30/20 Range/Units 22:08 23:09 00:21 WBC (3.8-10.6) k/uL RBC (4.30-5.90) m/uL Hgb (13.0-17.5) gm/dL Hct (39.0-53.0) % Neutrophils # (1.3-7.7) k/uL Lymphocytes # (1.0-4.8) k/uL Monocytes # (0-1.0) k/uL ABG pH (7.35-7.45) ABG pCO2 (35-45) mmHg ABG HCO3 (21-25) mmol/L ABG O2 Saturation (94-97) % Potassium (3.5-5.1) mmol/L Chloride (98-107) mmol/L Carbon Dioxide (22-30) mmol/L BUN (9-20) mg/dL Creatinine (0.66-1.25) mg/dL Glucose (74-99) mg/dL POC Glucose (mg/dL) 249 H 218 H 234 H (75-99) mg/dL Calcium (8.4-10.2) mg/dL Phosphorus (2.5-4.5) mg/dL 08/30/20 08/30/20 08/30/20 Range/Units 01:10 02:17 03:06 WBC (3.8-10.6) k/uL RBC (4.30-5.90) m/uL Hgb (13.0-17.5) gm/dL Hct (39.0-53.0) % Neutrophils # (1.3-7.7) k/uL Lymphocytes # (1.0-4.8) k/uL Monocytes # (0-1.0) k/uL ABG pH (7.35-7.45) ABG pCO2 (35-45) mmHg ABG HCO3 (21-25) mmol/L ABG O2 Saturation (94-97) % Potassium (3.5-5.1) mmol/L Chloride (98-107) mmol/L Carbon Dioxide (22-30) mmol/L BUN (9-20) mg/dL Creatinine (0.66-1.25) mg/dL Glucose (74-99) mg/dL POC Glucose (mg/dL) 195 H 165 H 128 H (75-99) mg/dL Calcium (8.4-10.2) mg/dL Phosphorus (2.5-4.5) mg/dL 08/30/20 08/30/20 08/30/20 Range/Units 03:41 03:41 04:28 WBC 18.6 H (3.8-10.6) k/uL RBC 4.06 L (4.30-5.90) m/uL Hgb 11.4 L (13.0-17.5) gm/dL Hct 36.3 L (39.0-53.0) % Neutrophils # 16.7 H (1.3-7.7) k/uL Lymphocytes # 0.3 L (1.0-4.8) k/uL Monocytes # 1.1 H (0-1.0) k/uL ABG pH (7.35-7.45) ABG pCO2 (35-45) mmHg ABG HCO3 (21-25) mmol/L ABG O2 Saturation (94-97) % Potassium 5.4 H (3.5-5.1) mmol/L Chloride 109 H (98-107) mmol/L Carbon Dioxide 20 L (22-30) mmol/L BUN 132 H* (9-20) mg/dL Creatinine 5.68 H (0.66-1.25) mg/dL Glucose 137 H (74-99) mg/dL POC Glucose (mg/dL) 146 H (75-99) mg/dL Calcium 7.2 L (8.4-10.2) mg/dL Phosphorus 8.4 H (2.5-4.5) mg/dL 08/30/20 08/30/20 08/30/20 Range/Units 05:13 06:11 07:05 WBC (3.8-10.6) k/uL RBC (4.30-5.90) m/uL Hgb (13.0-17.5) gm/dL Hct (39.0-53.0) % Neutrophils # (1.3-7.7) k/uL Lymphocytes # (1.0-4.8) k/uL Monocytes # (0-1.0) k/uL ABG pH (7.35-7.45) ABG pCO2 (35-45) mmHg ABG HCO3 (21-25) mmol/L ABG O2 Saturation (94-97) % Potassium (3.5-5.1) mmol/L Chloride (98-107) mmol/L Carbon Dioxide (22-30) mmol/L BUN (9-20) mg/dL Creatinine (0.66-1.25) mg/dL Glucose (74-99) mg/dL POC Glucose (mg/dL) 134 H 116 H 151 H (75-99) mg/dL Calcium (8.4-10.2) mg/dL Phosphorus (2.5-4.5) mg/dL 08/30/20 08/30/20 08/30/20 Range/Units 08:00 09:01 09:06 WBC (3.8-10.6) k/uL RBC (4.30-5.90) m/uL Hgb (13.0-17.5) gm/dL Hct (39.0-53.0) % Neutrophils # (1.3-7.7) k/uL Lymphocytes # (1.0-4.8) k/uL Monocytes # (0-1.0) k/uL ABG pH 7.18 L* (7.35-7.45) ABG pCO2 54 H (35-45) mmHg ABG HCO3 20 L (21-25) mmol/L ABG O2 Saturation 93.6 L (94-97) % Potassium (3.5-5.1) mmol/L Chloride (98-107) mmol/L Carbon Dioxide (22-30) mmol/L BUN (9-20) mg/dL Creatinine (0.66-1.25) mg/dL Glucose (74-99) mg/dL POC Glucose (mg/dL) 164 H 144 H (75-99) mg/dL Calcium (8.4-10.2) mg/dL Phosphorus (2.5-4.5) mg/dL 08/30/20 08/30/20 Range/Units 10:31 11:14 WBC (3.8-10.6) k/uL RBC (4.30-5.90) m/uL Hgb (13.0-17.5) gm/dL Hct (39.0-53.0) % Neutrophils # (1.3-7.7) k/uL Lymphocytes # (1.0-4.8) k/uL Monocytes # (0-1.0) k/uL ABG pH (7.35-7.45) ABG pCO2 (35-45) mmHg ABG HCO3 (21-25) mmol/L ABG O2 Saturation (94-97) % Potassium (3.5-5.1) mmol/L Chloride (98-107) mmol/L Carbon Dioxide (22-30) mmol/L BUN (9-20) mg/dL Creatinine (0.66-1.25) mg/dL Glucose (74-99) mg/dL POC Glucose (mg/dL) 147 H 168 H (75-99) mg/dL Calcium (8.4-10.2) mg/dL Phosphorus (2.5-4.5) mg/dL Assessment and Plan Assessment: Acute hypoxic and hypercapnic respiratory failure Status post respiratory arrest patient intubated MSSA pneumonia Hyperkalemia Acute kidney injury likely related to acute tubular necrosis as well as vancomycin associated renal damage Right spontaneous pneumothorax in spite of right-sided double chest tube persistent air leak Anterior posterior pneumothorax on the left side status post left-sided chest tube Extensive Pneumomediastinum Left spontaneous pneumothorax, will put a small bore chest tube to avoid tension pneumothorax Acute hypoxic respiratory failure Covid 19 pneumonia Type 2 diabetes mellitus Hypertension hypertensive cardiovascular disease Dehydration hypovolemia and hyponatremia Depression Overall prognosis is very poor Plan: Chest tube assessment and plan for bilateral pneumothoraces and pneumomediastinum as above, continue suction 14 cm water on the right side 20 cm water and left side Bicarb drip, 50 mEq of bicarbonate as needed Hemodialysis as per renal services Monitor renal output closely Continue antihypertensive agent from home Continue to follow sugars closely Observe off of vancomycin, continue cefepime adjusted for renal failure Ventilator adjustment as needed and adjustment of PEEP as noted above Status post Convalescent plasma Agree with supplemental oxygen and nonrebreather mask may need BiPAP as needed O follow closely Prone positioning as much as 16 hour a day either continuous or intermittent Deep breathing exercise incentive spirometry Increase activity as tolerated Continue Decadron and IV Remdesivir for 10 and 5 days respectively Further plan of care as per clinical response of the patient, overall prognosis is guarded Time with Patient: Greater than 30
[2020-08-30 12:50] LABS: Glucose,Whole Blood 140 mg/dL (75-99)
[2020-08-30 13:58] LABS: Glucose,Whole Blood 124 mg/dL (75-99)
--- NOTE | 2020-08-30 14:50 | P.PN ---
Subjective Progress Note Date: 08/30/20 Follow-up for acute kidney injury and hyperkalemia. Good urine output. 1.5 L in the last 24 hours. Objective - Vital Signs Vital signs: Vital Signs Temp 98.1 F 08/30/20 12:00 Pulse 92 08/30/20 14:00 Resp 34 H 08/30/20 14:00 BP 130/64 08/30/20 14:00 Pulse Ox 94 L 08/30/20 14:00 Intake & Output 08/29/20 08/30/20 08/30/20 18:59 06:59 18:59 Intake Total 2499.811 2798.206 1680.552 Output Total 1055 530 690 Balance 9533.801 9454.206 990.552 Weight 116.6 kg Intake: IV 1200 1300 900 Cefepime 2 gm In Sodium 100 100 Chloride 0.9% 100 ml @ 25 mls/hr IVPB Q12HR [facility] Rx #:[id number] Dextrose 5% in Water 1, 600 600 400 000 ml @ 50 mls/hr IV . Q23H [facility] with Sodium Bicarb (1 Meq/ml) 150 ml Rx#:[id number] Sodium Chloride 0.9% 1, 600 600 400 000 ml @ 50 mls/hr IV . Q20H [facility] Rx#:[id number] Intake, IV Titration 585.811 970.206 304.552 Amount Cisatracurium 200 mg In 163.336 371.728 Sodium Chloride 0.9% 180 ml @ 1 MCG/KG/MIN 5.994 mls/hr IV .Q24H [facility] Rx#: [id number] Insulin Regular 100 unit 125.290 200.115 104.552 In Sodium Chloride 0.9% 100 ml @ Per Protocol IV .Q0M [facility] Rx#:[id number] propofoL 1,000 mg In 297.185 398.363 200 Empty Bag 1 bag @ Titrate IV .Q0M [facility] Rx#: [id number] Tube Feeding 624 468 416 Other 90 60 60 Output: Chest Tube Drainage 130 180 Chest Tube Right 70 120 Left Upper Anterior Chest 60 60 Urine 925 530 510 Other: Voiding Method Indwelling Catheter Indwelling Catheter Indwelling Catheter - Exam Exam limited secondary to COVID-19 - Labs CBC & Chem 7: 08/30/20 03:41 08/30/20 03:41 Labs: Abnormal Lab Results - Last 24 Hours (Table) 08/29/20 08/29/20 08/29/20 Range/Units 15:29 16:27 17:23 WBC (3.8-10.6) k/uL RBC (4.30-5.90) m/uL Hgb (13.0-17.5) gm/dL Hct (39.0-53.0) % Neutrophils # (1.3-7.7) k/uL Lymphocytes # (1.0-4.8) k/uL Monocytes # (0-1.0) k/uL ABG pH (7.35-7.45) ABG pCO2 (35-45) mmHg ABG HCO3 (21-25) mmol/L ABG O2 Saturation (94-97) % Potassium (3.5-5.1) mmol/L Chloride (98-107) mmol/L Carbon Dioxide (22-30) mmol/L BUN (9-20) mg/dL Creatinine (0.66-1.25) mg/dL Glucose (74-99) mg/dL POC Glucose (mg/dL) 287 H 290 H 273 H (75-99) mg/dL Calcium (8.4-10.2) mg/dL Phosphorus (2.5-4.5) mg/dL 08/29/20 08/29/20 08/29/20 Range/Units 17:32 18:22 19:06 WBC (3.8-10.6) k/uL RBC (4.30-5.90) m/uL Hgb (13.0-17.5) gm/dL Hct (39.0-53.0) % Neutrophils # (1.3-7.7) k/uL Lymphocytes # (1.0-4.8) k/uL Monocytes # (0-1.0) k/uL ABG pH (7.35-7.45) ABG pCO2 (35-45) mmHg ABG HCO3 (21-25) mmol/L ABG O2 Saturation (94-97) % Potassium (3.5-5.1) mmol/L Chloride (98-107) mmol/L Carbon Dioxide (22-30) mmol/L BUN (9-20) mg/dL Creatinine (0.66-1.25) mg/dL Glucose (74-99) mg/dL POC Glucose (mg/dL) 256 H 254 H 264 H (75-99) mg/dL Calcium (8.4-10.2) mg/dL Phosphorus (2.5-4.5) mg/dL 08/29/20 08/29/20 08/29/20 Range/Units 21:00 22:08 23:09 WBC (3.8-10.6) k/uL RBC (4.30-5.90) m/uL Hgb (13.0-17.5) gm/dL Hct (39.0-53.0) % Neutrophils # (1.3-7.7) k/uL Lymphocytes # (1.0-4.8) k/uL Monocytes # (0-1.0) k/uL ABG pH (7.35-7.45) ABG pCO2 (35-45) mmHg ABG HCO3 (21-25) mmol/L ABG O2 Saturation (94-97) % Potassium (3.5-5.1) mmol/L Chloride (98-107) mmol/L Carbon Dioxide (22-30) mmol/L BUN (9-20) mg/dL Creatinine (0.66-1.25) mg/dL Glucose (74-99) mg/dL POC Glucose (mg/dL) 281 H 249 H 218 H (75-99) mg/dL Calcium (8.4-10.2) mg/dL Phosphorus (2.5-4.5) mg/dL 08/30/20 08/30/20 08/30/20 Range/Units 00:21 01:10 02:17 WBC (3.8-10.6) k/uL RBC (4.30-5.90) m/uL Hgb (13.0-17.5) gm/dL Hct (39.0-53.0) % Neutrophils # (1.3-7.7) k/uL Lymphocytes # (1.0-4.8) k/uL Monocytes # (0-1.0) k/uL ABG pH (7.35-7.45) ABG pCO2 (35-45) mmHg ABG HCO3 (21-25) mmol/L ABG O2 Saturation (94-97) % Potassium (3.5-5.1) mmol/L Chloride (98-107) mmol/L Carbon Dioxide (22-30) mmol/L BUN (9-20) mg/dL Creatinine (0.66-1.25) mg/dL Glucose (74-99) mg/dL POC Glucose (mg/dL) 234 H 195 H 165 H (75-99) mg/dL Calcium (8.4-10.2) mg/dL Phosphorus (2.5-4.5) mg/dL 08/30/20 08/30/20 08/30/20 Range/Units 03:06 03:41 03:41 WBC 18.6 H (3.8-10.6) k/uL RBC 4.06 L (4.30-5.90) m/uL Hgb 11.4 L (13.0-17.5) gm/dL Hct 36.3 L (39.0-53.0) % Neutrophils # 16.7 H (1.3-7.7) k/uL Lymphocytes # 0.3 L (1.0-4.8) k/uL Monocytes # 1.1 H (0-1.0) k/uL ABG pH (7.35-7.45) ABG pCO2 (35-45) mmHg ABG HCO3 (21-25) mmol/L ABG O2 Saturation (94-97) % Potassium 5.4 H (3.5-5.1) mmol/L Chloride 109 H (98-107) mmol/L Carbon Dioxide 20 L (22-30) mmol/L BUN 132 H* (9-20) mg/dL Creatinine 5.68 H (0.66-1.25) mg/dL Glucose 137 H (74-99) mg/dL POC Glucose (mg/dL) 128 H (75-99) mg/dL Calcium 7.2 L (8.4-10.2) mg/dL Phosphorus 8.4 H (2.5-4.5) mg/dL 08/30/20 08/30/20 08/30/20 Range/Units 04:28 05:13 06:11 WBC (3.8-10.6) k/uL RBC (4.30-5.90) m/uL Hgb (13.0-17.5) gm/dL Hct (39.0-53.0) % Neutrophils # (1.3-7.7) k/uL Lymphocytes # (1.0-4.8) k/uL Monocytes # (0-1.0) k/uL ABG pH (7.35-7.45) ABG pCO2 (35-45) mmHg ABG HCO3 (21-25) mmol/L ABG O2 Saturation (94-97) % Potassium (3.5-5.1) mmol/L Chloride (98-107) mmol/L Carbon Dioxide (22-30) mmol/L BUN (9-20) mg/dL Creatinine (0.66-1.25) mg/dL Glucose (74-99) mg/dL POC Glucose (mg/dL) 146 H 134 H 116 H (75-99) mg/dL Calcium (8.4-10.2) mg/dL Phosphorus (2.5-4.5) mg/dL 08/30/20 08/30/20 08/30/20 Range/Units 07:05 08:00 09:01 WBC (3.8-10.6) k/uL RBC (4.30-5.90) m/uL Hgb (13.0-17.5) gm/dL Hct (39.0-53.0) % Neutrophils # (1.3-7.7) k/uL Lymphocytes # (1.0-4.8) k/uL Monocytes # (0-1.0) k/uL ABG pH (7.35-7.45) ABG pCO2 (35-45) mmHg ABG HCO3 (21-25) mmol/L ABG O2 Saturation (94-97) % Potassium (3.5-5.1) mmol/L Chloride (98-107) mmol/L Carbon Dioxide (22-30) mmol/L BUN (9-20) mg/dL Creatinine (0.66-1.25) mg/dL Glucose (74-99) mg/dL POC Glucose (mg/dL) 151 H 164 H 144 H (75-99) mg/dL Calcium (8.4-10.2) mg/dL Phosphorus (2.5-4.5) mg/dL 08/30/20 08/30/20 08/30/20 Range/Units 09:06 10:31 11:14 WBC (3.8-10.6) k/uL RBC (4.30-5.90) m/uL Hgb (13.0-17.5) gm/dL Hct (39.0-53.0) % Neutrophils # (1.3-7.7) k/uL Lymphocytes # (1.0-4.8) k/uL Monocytes # (0-1.0) k/uL ABG pH 7.18 L* (7.35-7.45) ABG pCO2 54 H (35-45) mmHg ABG HCO3 20 L (21-25) mmol/L ABG O2 Saturation 93.6 L (94-97) % Potassium (3.5-5.1) mmol/L Chloride (98-107) mmol/L Carbon Dioxide (22-30) mmol/L BUN (9-20) mg/dL Creatinine (0.66-1.25) mg/dL Glucose (74-99) mg/dL POC Glucose (mg/dL) 147 H 168 H (75-99) mg/dL Calcium (8.4-10.2) mg/dL Phosphorus (2.5-4.5) mg/dL 08/30/20 08/30/20 Range/Units 12:48 13:57 WBC (3.8-10.6) k/uL RBC (4.30-5.90) m/uL Hgb (13.0-17.5) gm/dL Hct (39.0-53.0) % Neutrophils # (1.3-7.7) k/uL Lymphocytes # (1.0-4.8) k/uL Monocytes # (0-1.0) k/uL ABG pH (7.35-7.45) ABG pCO2 (35-45) mmHg ABG HCO3 (21-25) mmol/L ABG O2 Saturation (94-97) % Potassium (3.5-5.1) mmol/L Chloride (98-107) mmol/L Carbon Dioxide (22-30) mmol/L BUN (9-20) mg/dL Creatinine (0.66-1.25) mg/dL Glucose (74-99) mg/dL POC Glucose (mg/dL) 140 H 124 H (75-99) mg/dL Calcium (8.4-10.2) mg/dL Phosphorus (2.5-4.5) mg/dL Assessment and Plan Assessment: #1 nonoliguric acute kidney injury secondary to toxic ATN from vancomycin. #2 hyperkalemia secondary to acute kidney injury. Also contribution from lisinopril #3 Covid pneumonia on ventilator. #4 respiratory and metabolic acidosis #5 spontaneous pneumothorax status post chest tube #6 diabetes uncontrolled Plan: #1 medical management for hyperkalemia. Insulin/Lasix/Kayexalate. Potassium still high. #2 agree with stopping lisinopril and vancomycin. #3 continue with Lasix 60 mg IV twice a day. #4 avoid nephrotoxic agents and hypotensive episodes. #5 no acute indication for renal replacement therapy at this time, evaluate on day by day basis.
[2020-08-30 15:10] LABS: Glucose,Whole Blood 160 mg/dL (75-99)
[2020-08-30 15:58] LABS: Glucose,Whole Blood 186 mg/dL (75-99)
[2020-08-30 16:56] LABS: Glucose,Whole Blood 187 mg/dL (75-99)
--- NOTE | 2020-08-30 17:08 | P.PN ---
Subjective Progress Note Date: 08/30/20 Principal diagnosis: Covid 19 infection/pneumonia Vent dependent respiratory failure secondary to 1 Bilateral pneumothorax; status post chest tube placement 53-year-old male patient admitted for COVID-19 pneumonitis/sepsis; patient declined despite antibiotic therapy and treatment with high flow oxygen per nasal cannula and developed bilateral spontaneous pneumothorax with pneumomediastinum and subcutaneous emphysema for which he underwent chest tube placement; patient's respiratory status continued to deteriorate and he was ultimately intubated Patient remains in ICU intubated and mechanically ventilated 08/29/2020 patient seen seen and evaluated at bedside; remains intubated and mechanically ventilated;, saturation remains borderline however they were 90% in the morning came down to 84%; patient remains on 100% oxygen; arterial blood gases reviewed; metabolic acidosis appears to be related to acute renal failure; nephrology has been consulted by the hat trimmer for nonoliguric acute renal failure likely acute tubular necrosis; patient remains on gentle IV fluid hydration; received 1 amp of bicarb with bicarbonate drip; inflammatory markers are slightly improved; CRP remains elevated; sputum is positive for MSSA and vancomycin has been discontinued patient has 2 chest tubes on the right side and one chest tube on the left side due to pneumomediastinum and bilateral pneumothorax they've been aching is mi nimal on left and right bottom chest tube significant on apical chest tube however 08/30/2020, patient remains in ICU; medically sedated and paralyzed of propofol and Nimbex, on full ventilator support; saturation 91-92% bilateral chest tubes are present minimal air leak on the left side, right-sided apical tube still having persistent air leak, tolerating tube feed well labs reviewed arterial blood gas reviewed as well along with radiographic findings patient BUN/creatinine continue to go up consistent with acute tubular necrosis likely related to covid 19 sepsis, up to 132 and 5.86 Objective - Vital Signs Vital signs: Vital Signs Temp 98.3 F 08/30/20 16:00 Pulse 97 08/30/20 16:00 Resp 34 H 08/30/20 16:00 BP 129/62 08/30/20 16:00 Pulse Ox 96 08/30/20 16:00 Intake & Output 08/29/20 08/30/20 08/30/20 18:59 06:59 18:59 Intake Total 2499.811 2798.206 2330.595 Output Total 1055 530 855 Balance 8076.165 0845.206 1475.595 Weight 116.6 kg Intake: IV 1200 1300 1100 Cefepime 2 gm In Sodium 100 100 Chloride 0.9% 100 ml @ 25 mls/hr IVPB Q12HR [facility] Rx #:[id number] Dextrose 5% in Water 1, 600 600 500 000 ml @ 50 mls/hr IV . Q23H [facility] with Sodium Bicarb (1 Meq/ml) 150 ml Rx#:[id number] Sodium Chloride 0.9% 1, 600 600 500 000 ml @ 50 mls/hr IV . Q20H [facility] Rx#:[id number] Intake, IV Titration 585.811 970.206 620.595 Amount Cisatracurium 200 mg In 163.336 371.728 162.437 Sodium Chloride 0.9% 180 ml @ 1 MCG/KG/MIN 5.994 mls/hr IV .Q24H [facility] Rx#: [id number] Insulin Regular 100 unit 125.290 200.115 138.219 In Sodium Chloride 0.9% 100 ml @ Per Protocol IV .Q0M [facility] Rx#:[id number] propofoL 1,000 mg In 297.185 398.363 319.939 Empty Bag 1 bag @ Titrate IV .Q0M [facility] Rx#: [id number] Tube Feeding 624 468 520 Other 90 60 90 Output: Chest Tube Drainage 130 200 Chest Tube Right 70 130 Left Upper Anterior Chest 60 70 Urine 925 530 655 Other: Voiding Method Indwelling Catheter Indwelling Catheter Indwelling Catheter - Exam GENERAL: The patient is intubated and sedated and appears to be in no acute distress. HEENT: Pupils are round and equally reacting to light. EOMI. No scleral icterus. No conjunctival pallor. Normocephalic, atraumatic. No pharyngeal erythema. No thyromegaly. ET tube noted CARDIOVASCULAR: S1 and S2 present. No murmurs, rubs, or gallops. PULMONARY: Bilateral scattered rhonchi, no wheezing noted diminished air entry bilaterally worse on the right, tachypneic, 2 chest tubes noted on the right side and one on the left ABDOMEN: Soft, nontender, nondistended, normoactive bowel sounds. No palpable organomegaly. MUSCULOSKELETAL: No joint swelling or deformity. EXTREMITIES: No cyanosis, clubbing, or pedal edema. NEUROLOGICAL: Unable to fully assess as patient is intubated and sedated - Labs CBC & Chem 7: 08/30/20 03:41 08/30/20 03:41 Labs: Abnormal Lab Results - Last 24 Hours (Table) 08/29/20 08/29/20 08/29/20 Range/Units 17:23 17:32 18:22 WBC (3.8-10.6) k/uL RBC (4.30-5.90) m/uL Hgb (13.0-17.5) gm/dL Hct (39.0-53.0) % Neutrophils # (1.3-7.7) k/uL Lymphocytes # (1.0-4.8) k/uL Monocytes # (0-1.0) k/uL ABG pH (7.35-7.45) ABG pCO2 (35-45) mmHg ABG HCO3 (21-25) mmol/L ABG O2 Saturation (94-97) % Potassium (3.5-5.1) mmol/L Chloride (98-107) mmol/L Carbon Dioxide (22-30) mmol/L BUN (9-20) mg/dL Creatinine (0.66-1.25) mg/dL Glucose (74-99) mg/dL POC Glucose (mg/dL) 273 H 256 H 254 H (75-99) mg/dL Calcium (8.4-10.2) mg/dL Phosphorus (2.5-4.5) mg/dL 08/29/20 08/29/20 08/29/20 Range/Units 19:06 21:00 22:08 WBC (3.8-10.6) k/uL RBC (4.30-5.90) m/uL Hgb (13.0-17.5) gm/dL Hct (39.0-53.0) % Neutrophils # (1.3-7.7) k/uL Lymphocytes # (1.0-4.8) k/uL Monocytes # (0-1.0) k/uL ABG pH (7.35-7.45) ABG pCO2 (35-45) mmHg ABG HCO3 (21-25) mmol/L ABG O2 Saturation (94-97) % Potassium (3.5-5.1) mmol/L Chloride (98-107) mmol/L Carbon Dioxide (22-30) mmol/L BUN (9-20) mg/dL Creatinine (0.66-1.25) mg/dL Glucose (74-99) mg/dL POC Glucose (mg/dL) 264 H 281 H 249 H (75-99) mg/dL Calcium (8.4-10.2) mg/dL Phosphorus (2.5-4.5) mg/dL 08/29/20 08/30/20 08/30/20 Range/Units 23:09 00:21 01:10 WBC (3.8-10.6) k/uL RBC (4.30-5.90) m/uL Hgb (13.0-17.5) gm/dL Hct (39.0-53.0) % Neutrophils # (1.3-7.7) k/uL Lymphocytes # (1.0-4.8) k/uL Monocytes # (0-1.0) k/uL ABG pH (7.35-7.45) ABG pCO2 (35-45) mmHg ABG HCO3 (21-25) mmol/L ABG O2 Saturation (94-97) % Potassium (3.5-5.1) mmol/L Chloride (98-107) mmol/L Carbon Dioxide (22-30) mmol/L BUN (9-20) mg/dL Creatinine (0.66-1.25) mg/dL Glucose (74-99) mg/dL POC Glucose (mg/dL) 218 H 234 H 195 H (75-99) mg/dL Calcium (8.4-10.2) mg/dL Phosphorus (2.5-4.5) mg/dL 08/30/20 08/30/20 08/30/20 Range/Units 02:17 03:06 03:41 WBC 18.6 H (3.8-10.6) k/uL RBC 4.06 L (4.30-5.90) m/uL Hgb 11.4 L (13.0-17.5) gm/dL Hct 36.3 L (39.0-53.0) % Neutrophils # 16.7 H (1.3-7.7) k/uL Lymphocytes # 0.3 L (1.0-4.8) k/uL Monocytes # 1.1 H (0-1.0) k/uL ABG pH (7.35-7.45) ABG pCO2 (35-45) mmHg ABG HCO3 (21-25) mmol/L ABG O2 Saturation (94-97) % Potassium (3.5-5.1) mmol/L Chloride (98-107) mmol/L Carbon Dioxide (22-30) mmol/L BUN (9-20) mg/dL Creatinine (0.66-1.25) mg/dL Glucose (74-99) mg/dL POC Glucose (mg/dL) 165 H 128 H (75-99) mg/dL Calcium (8.4-10.2) mg/dL Phosphorus (2.5-4.5) mg/dL 08/30/20 08/30/20 08/30/20 Range/Units 03:41 04:28 05:13 WBC (3.8-10.6) k/uL RBC (4.30-5.90) m/uL Hgb (13.0-17.5) gm/dL Hct (39.0-53.0) % Neutrophils # (1.3-7.7) k/uL Lymphocytes # (1.0-4.8) k/uL Monocytes # (0-1.0) k/uL ABG pH (7.35-7.45) ABG pCO2 (35-45) mmHg ABG HCO3 (21-25) mmol/L ABG O2 Saturation (94-97) % Potassium 5.4 H (3.5-5.1) mmol/L Chloride 109 H (98-107) mmol/L Carbon Dioxide 20 L (22-30) mmol/L BUN 132 H* (9-20) mg/dL Creatinine 5.68 H (0.66-1.25) mg/dL Glucose 137 H (74-99) mg/dL POC Glucose (mg/dL) 146 H 134 H (75-99) mg/dL Calcium 7.2 L (8.4-10.2) mg/dL Phosphorus 8.4 H (2.5-4.5) mg/dL 08/30/20 08/30/20 08/30/20 Range/Units 06:11 07:05 08:00 WBC (3.8-10.6) k/uL RBC (4.30-5.90) m/uL Hgb (13.0-17.5) gm/dL Hct (39.0-53.0) % Neutrophils # (1.3-7.7) k/uL Lymphocytes # (1.0-4.8) k/uL Monocytes # (0-1.0) k/uL ABG pH (7.35-7.45) ABG pCO2 (35-45) mmHg ABG HCO3 (21-25) mmol/L ABG O2 Saturation (94-97) % Potassium (3.5-5.1) mmol/L Chloride (98-107) mmol/L Carbon Dioxide (22-30) mmol/L BUN (9-20) mg/dL Creatinine (0.66-1.25) mg/dL Glucose (74-99) mg/dL POC Glucose (mg/dL) 116 H 151 H 164 H (75-99) mg/dL Calcium (8.4-10.2) mg/dL Phosphorus (2.5-4.5) mg/dL 08/30/20 08/30/20 08/30/20 Range/Units 09:01 09:06 10:31 WBC (3.8-10.6) k/uL RBC (4.30-5.90) m/uL Hgb (13.0-17.5) gm/dL Hct (39.0-53.0) % Neutrophils # (1.3-7.7) k/uL Lymphocytes # (1.0-4.8) k/uL Monocytes # (0-1.0) k/uL ABG pH 7.18 L* (7.35-7.45) ABG pCO2 54 H (35-45) mmHg ABG HCO3 20 L (21-25) mmol/L ABG O2 Saturation 93.6 L (94-97) % Potassium (3.5-5.1) mmol/L Chloride (98-107) mmol/L Carbon Dioxide (22-30) mmol/L BUN (9-20) mg/dL Creatinine (0.66-1.25) mg/dL Glucose (74-99) mg/dL POC Glucose (mg/dL) 144 H 147 H (75-99) mg/dL Calcium (8.4-10.2) mg/dL Phosphorus (2.5-4.5) mg/dL 08/30/20 08/30/20 08/30/20 Range/Units 11:14 12:48 13:57 WBC (3.8-10.6) k/uL RBC (4.30-5.90) m/uL Hgb (13.0-17.5) gm/dL Hct (39.0-53.0) % Neutrophils # (1.3-7.7) k/uL Lymphocytes # (1.0-4.8) k/uL Monocytes # (0-1.0) k/uL ABG pH (7.35-7.45) ABG pCO2 (35-45) mmHg ABG HCO3 (21-25) mmol/L ABG O2 Saturation (94-97) % Potassium (3.5-5.1) mmol/L Chloride (98-107) mmol/L Carbon Dioxide (22-30) mmol/L BUN (9-20) mg/dL Creatinine (0.66-1.25) mg/dL Glucose (74-99) mg/dL POC Glucose (mg/dL) 168 H 140 H 124 H (75-99) mg/dL Calcium (8.4-10.2) mg/dL Phosphorus (2.5-4.5) mg/dL 08/30/20 08/30/20 08/30/20 Range/Units 15:07 15:57 16:55 WBC (3.8-10.6) k/uL RBC (4.30-5.90) m/uL Hgb (13.0-17.5) gm/dL Hct (39.0-53.0) % Neutrophils # (1.3-7.7) k/uL Lymphocytes # (1.0-4.8) k/uL Monocytes # (0-1.0) k/uL ABG pH (7.35-7.45) ABG pCO2 (35-45) mmHg ABG HCO3 (21-25) mmol/L ABG O2 Saturation (94-97) % Potassium (3.5-5.1) mmol/L Chloride (98-107) mmol/L Carbon Dioxide (22-30) mmol/L BUN (9-20) mg/dL Creatinine (0.66-1.25) mg/dL Glucose (74-99) mg/dL POC Glucose (mg/dL) 160 H 186 H 187 H (75-99) mg/dL Calcium (8.4-10.2) mg/dL Phosphorus (2.5-4.5) mg/dL Assessment and Plan Assessment: -Covid 19 infection/pneumonia:continue with Decadron continue with respiratory support. infectious disease following. Patient is intubated -Acute respiratory arrest with hypoxia -Right side pneumothorax patient has 2 chest tubes on the right side, small stable left-sided pneumothorax. chest tube on the left with pulmonary -Type 2 diabetes mellitus uncontrolled, continue on long-acting along with sliding scale. -mild hypovolemic hyponatremia, improved -Hypertension: -DVT prophylaxis with Lovenox -GI prophylaxis: Pepcid Plan: Continue current medications and continue to monitor closely. Patient currently in the ICU for close monitoring. Currently with 2 chest tubes on the right side with continued air leak and one chest tube on the left side. Patient is currently intubated and sedated. Maintained on IV antibiotics in the form of cefepime and vancomycin and will continue at this time. Pulmonary and infectious disease also following. Prognosis is extremely guarded and poor and discussed CODE STATUS with family. Bette Flores would like no code status and will discuss with hospice about comfort measures. This was discussed with pulmonary Dr. López as well. Will continue to monitor vital signs and labs closely. Further recommendations to follow. Prognosis is poor and extremely guarded.
[2020-08-30 17:47] LABS: Glucose,Whole Blood 191 mg/dL (75-99)
[2020-08-30] MEDS: ASPIRIN 81 MG PO SCH (20:41)
[2020-08-30 20:52] LABS: Glucose,Whole Blood 157 mg/dL (75-99)
[2020-08-30 22:02] LABS: Glucose,Whole Blood 133 mg/dL (75-99)
[2020-08-30 23:10] LABS: Glucose,Whole Blood 127 mg/dL (75-99)
[2020-08-31 00:22] LABS: Glucose,Whole Blood 151 mg/dL (75-99)
[2020-08-31 01:03] LABS: Glucose,Whole Blood 169 mg/dL (75-99)
--- NOTE | 2020-08-31 03:59 | PN ---
PROGRESS NOTE DATE OF SERVICE: 08/30/2020 REASON FOR FOLLOWUP: Pneumonia. INTERVAL HISTORY: The patient is currently afebrile. The patient is hemodynamically stable, not on any pressor support. The patient's FiO2 is down to 90%. No significant purulent secretion through the ET or diarrhea reported by nursing staff. PHYSICAL EXAMINATION: Blood pressure 141/67, pulse of 93, temperature 98.3. He is 97% on 90% FiO2. General description is a middle-aged male, intubated on the vent. RESPIRATORY SYSTEM: Unlabored breathing, decreased breath sounds at the bases. No wheeze. HEART: S1, S2. Regular rate and rhythm. ABDOMEN: Soft, no tenderness. EXTREMITIES: No edema of the feet. LABS: Hemoglobin 11.4, white count is down to 18.6. Kidney function is worse with creatinine 5.68. Did have some urine output. DIAGNOSTIC IMPRESSION AND PLAN: Patient in acute respiratory failure which is multifactorial in this patient who did have a component of COVID-19 pneumonia followed by complication including pneumothorax requiring bilateral chest tube placement and endotracheal tube. Sputum subsequently positive for MSSA. The patient is covered with cefepime to continue. White count showing a downward trend and continue with supportive care. Prognosis remains to be guarded. MMODL / IJN: [id number] /
[2020-08-31 04:03] LABS: Glucose,Whole Blood 156 mg/dL (75-99)
[2020-08-31] MEDS: INSULIN REGULAR 100 UNIT in SODIUM CHLORIDE 0.9% 100 ML IV SCH ×3 (04:32→14:55)
[2020-08-31] MEDS: CISATRACURIUM 200 MG in SODIUM CHLORIDE 0.9% 180 ML IV SCH ×2 (04:32→14:55)
[2020-08-31 04:50] LABS: Basophils # (A) 0.2 k/uL (0-0.2); Basophils % (A) 1 %; Eosinophils # (A) 0.1 k/uL (0-0.7); Eosinophils % (A) 1 %; HCT 35.8 % (39.0-53.0); HGB 11.9 gm/dL (13.0-17.5); Lymphocytes # (A) 0.1 k/uL (1.0-4.8); Lymphocytes % (A) 1 %; MCH 29.2 pg (25.0-35.0); MCHC 33.2 g/dL (31.0-37.0); Mean Platelet Volume 8.2; Monocytes # (A) 0.7 k/uL (0-1.0); Monocytes % (A) 4 %; Neutrophils # (A) 16.4 k/uL (1.3-7.7); Neutrophils % (A) 93 %; Platelet Count 146 k/uL (150-450); RBC 4.07 m/uL (4.30-5.90); RDW 14.4 % (11.5-15.5); WBC 17.6 k/uL (3.8-10.6)
[2020-08-31] MEDS: DEXTROSE 5% IN WATER 1,000 ML with SODIUM BICARB (1 MEQ/ML) 150 ML IV SCH (05:11)
[2020-08-31 05:42] LABS: Albumin 2.2 g/dL (3.5-5.0); C Reactive Protein 61.6 mg/L (<10.0); Potassium 5.2 mmol/L (3.5-5.1); Total Bilirubin 0.4 mg/dL (0.2-1.3); Total Protein 4.9 g/dL (6.3-8.2)
[2020-08-31 06:03] LABS: Glucose,Whole Blood 112 mg/dL (75-99)
[2020-08-31 06:07] LABS: ABG Base Excess -6.8 mmol/L; ABG HCO3 22 mmol/L (21-25); ABG Oxygen Saturation 90.9 % (94-97); ABG PCO2 58 mmHg (35-45); ABG PO2 77 mmHg (83-108); ABG TCO2 23 mmol/L (19-24); Allen Test Performed? Yes
[2020-08-31] MEDS: SODIUM CHLORIDE 0.9% 1,000 ML IV SCH (06:07)
[2020-08-31 06:09] LABS: ABG PH 7.18 (7.35-7.45)
--- NOTE | 2020-08-31 07:32 | XR ---
EXAMINATION TYPE: XR chest 1V portable DATE OF EXAM: 08/31/2020 Comparison: 08/30/2020 Clinical History: 59-year-old male PNA Findings: ET tube is satisfactory. NG tube courses below the diaphragm. Heart upper limits of normal in size. D iffuse bilateral airspace disease. Slightly less confluent in the right lower lung as compared to dima or exam. 2 right-sided chest tubes. One chest tube on the left. Small right apical pneumothorax now s een measuring 1.3 cm. There may be a trace 2 mm left apical pneumothorax. Neither well seen previousl y. Bilateral subcutaneous emphysema. Impression: 1. Bilateral chest tubes in place. A small right apical pneumothorax is now seen measuring 1.3 cm. Th ere may be a trace 2 mm pneumothorax on the left. 2. Continued bilateral diffuse airspace disease. Slight improvement at the right lower lung.
[2020-08-31 08:52] LABS: Glucose,Whole Blood 176 mg/dL (75-99)
[2020-08-31 09:51] LABS: Ferritin 1121.1 ng/mL (22.0-322.0)
[2020-08-31 10:09] LABS: Glucose,Whole Blood 201 mg/dL (75-99)
[2020-08-31] MEDS: ASCORBIC ACID 500 MG TAB PO SCH (10:10)
[2020-08-31] MEDS: DEXAMETHASONE SOD PHOSPHATE 10 MG/ML 1 ML VIAL IV SCH (10:17)
[2020-08-31] MEDS: ENOXAPARIN 60 MG/0.6 ML SYRINGE SQ SCH (10:17)
[2020-08-31] MEDS: CEFEPIME 1 GM in SODIUM CHLORIDE 0.9% 50 ML IVPB SCH ×2 (10:17→20:46)
[2020-08-31] MEDS: CHLORHEXIDINE GLUCONATE 15 ML CUP MUCOUS MEM SCH ×2 (10:17→20:46)
[2020-08-31] MEDS: ZINC SULFATE 220 MG CAP PO SCH (10:18)
[2020-08-31] MEDS: FUROSEMIDE 10 MG/ML 10 ML VIAL IV SCH ×2 (10:18→20:46)
[2020-08-31] MEDS: FAMOTIDINE 20 MG/2 ML VIAL IV SCH (10:18)
[2020-08-31 11:05] LABS: ABG PH 7.18 (7.35-7.45)
[2020-08-31 11:08] LABS: Glucose,Whole Blood 199 mg/dL (75-99)
[2020-08-31 12:11] LABS: Glucose,Whole Blood 210 mg/dL (75-99)
--- NOTE | 2020-08-31 12:37 | P.PN ---
Subjective Progress Note Date: 08/31/20 (Critical care time 35 minutes) Principal diagnosis: Right spontaneous pneumothorax status post 2 chest tubes Pneumomediastinum Left spontaneous pneumothorax Acute hypoxic respiratory failure Covid 19 pneumonia Type 2 diabetes mellitus Hypertension hypertensive cardiovascular disease Dehydration hypovolemia and hyponatremia Depression 08/31/2020, patient seen eval examined during the rounds labs reviewed medications reviewed care plan discussed with the staff at length, remains medically paralyzed with propofol and Nimbex drip, chest tubes is still significantly leaking on the right side lungs are well expanded though, minimum leak is present at the base, cardiothoracic surgery is have recommended to follow it up closely, no active intervention has been recommended, renal function continued to get worse, patient has been getting diuresis with loop diuretics, would recommend to discontinue it patient remains on bicarb drip, along with anticoagulation, when setting remains stable assist control rate of 24 deep of 12 tidal volume 500 with 100% oxygen, saturation is just a 88-90%, continue broad-spectrum antibiotics and supportive care long-term prognosis poor will defer decision about dialysis to the family and renal services 08/30/2020, patient seen eval examined during the rounds medically sedated and paralyzed of propofol and Nimbex, on full ventilator support with assist control rate of 24 EP is 1200% oxygen which has been reduced to 90% now, saturation 91- 92%, bilateral chest tubes are present minimal air leak on the left side, right- sided apical tube still having persistent nearly however distal intermittently, tolerating tube feed well, labs reviewed arterial blood gas reviewed as well along with radiographic findings patient BUN/creatinine continue to go up consistent with acute tubular necrosis likely related to covid 19 sepsis, aron rial blood gases revealed pH is 7.18 pCO2 54 pO2 90, patient improved to 5.4, BUN/creatinine up to 132 and 5.86 08/29/2020, patient seen eval examined during the rounds labs reviewed medications reviewed care plan discussed with the staff including RN and respiratory therapy at length, saturation remains borderline however they were 90% in the morning came down to 84% increasing PEEP causes rapid increase in peak air pressure and platue pressure up to 55 and 35, PEEP lowered to 12, patient remains on 100% oxygen with full assist control mode, arterial blood gases reviewed and significant metabolic acidosis appears to be related to acute renal failure, renal services have been consulted, patient appears to have nonoliguric acute renal failure likely acute tubular necrosis, patient remains gently hydrated to feed and given, remains afebrile, white cell count remains on higher side hemoglobin stable, arterial blood gases noted to be to be pH of 7.18 pCO2 53 pO2 70, 1 amp of bicarb along with bicarb drip have been initiated, potassium running on the higher side of 5.8, inflammatory parameters slightly down of thousand today LDH and C-reactive protein remains elevated, sputum for positive for a MSSA, vancomycin has been discontinued which may be contributing to acute kidney injury, patient remains on the propofol as well as Nimbex drip, patient has 2 chest tubes on the right side and one chest tube on the left side due to pneumomediastinum and bilateral pneumothorax they've been aching is minimal on left and right bottom chest tube significant on apical chest tube however 08/28/2020, patient seen eval examined during the rounds labs reviewed medications reviewed, currently patient is on ventilator support PEEP of 10, 90% oxygen, assist control rate of 30, care blood gases reviewed, chest x-ray reviewed, minimal bilateral apical pneumothorax is present, stable left-sided chest U no air leak is present, right-sided apical tube continued to bubble significant air leak, bottom minimal, patient is medically paralyzed with propofol and Nimbex, laboratory data reviewed discussed at length with the staff 08/27/2020, patient seen eval examined during the rounds sedated and medically paralyzed, right-sided chest tube is still significantly and leak upper tube is present no significantly is seen in the 1 and also left side, labs and arterial blood gases reviewed and ventilator adjusted, chest U was stable on chest x-ray, apical very small pneumothorax, 08/26/2020, patient seen eval examined during the rounds labs reviewed medications reviewed, chest tube continue to gently air, patient intubated, on full ventilator support noted evidence of hypercapnia with increase the ventilation C orders, chest x-ray reviewed trace pneumothorax on the apex cannot be excluded, basal bilateral dense infiltrate with mediastinal emphysema, no significant pneumothorax seen, labs reviewed, critical care time 35 minutes 08/25/2020, patient seen eval examined during the rounds labs reviewed medications reviewed care plan discussed with the staff, patient had a respirato ry arrest earlier this morning during which he pulled out his BiPAP machine oxygen saturation dropped down into 20s, he also tried to pull out his chest tube, during that process he was intubated, postintubation chest x-ray shows minimal pneumothorax on the right side left-sided pneumothorax or anterior posterior cannot be excluded, extensive pneumomediastinum is present, patient currently and placed on the propofol at 75 mics was very restless and agitated, tachypneic tachycardic and eventually medically paralyzed with Nimbex drip, respiratory status slightly more stable patient is more calm and now hemodynamics stable, has been getting IV fluids, will need a chest tube on the the left side to avoid tension pneumothorax, keep the 2 chest tube on the right side 1 direct towards the apex appears to be stable however one at the base of the lung is still in, dense bilateral infiltrate are present, white cell count is up to 34,000, arterial blood gas and chest x-ray reviewed consistent with respiratory and metabolic acidosis, with severe hypoxia requiring PEEP with high ventilatory rate 08/24/2020, patient seen eval examined during the rounds labs reviewed medications reviewed sitting upright on the bed, remains on BiPAP with 100% oxygen, saturation 95%, patient desaturated into goes on the right side down and intermittently during supine posture, however do better with left side up, and sitting up as well, chest x-ray from today reviewed pneumothorax recurred on the right side in spite of 2 chest tube aiming towards the apex and the base with significant air leak, small left apical pneumothorax however is stable, patient is awaiting evaluation from thoracic surgery for possible VATS or transfer to tertiary care center, left side and INR will put a small bore pigtail catheter at the apex later on this morning, patient remains afebrile slightly tachycardic tachypneic, inflammatory parameters still up, prognosis is guarded care plan discussed directly and indirectly with primary service, staff, cardiothoracic and IR 08/23/2020, patient seen eval reexamined during the rounds labs reviewed medications reviewed, oxygen saturation remained stable, however patient couldn't tolerate off of BiPAP, he remains on BiPAP. All, chest x-ray reviewed, patient hasn't to right-sided chest tube air leak is present from both, left- sided residual small pneumothorax present along with subcutaneous emphysema and mediastinal emphysema, interventional radiology could not do a chest tube on the left side, they are planning to do it tomorrow, white cell count decreased to 19,000, d-dimer is still elevated inflammatory parameters elevated consistent with cytokine nita 08/22/2020, patient seen eval reexamined significant desaturation was more noted, sats dropped down to 55-70% spontaneously comes right back up though currently on 93% BiPAP, Semiprone with the right side up patient cannot tolerate airvo, desaturated easily remains tachypneic tachycardic hemodynamic status however remains stable, chest x-ray findings reviewed in spite of right-sided chest tube and persistent air leak there is a persistent spontaneous pneumothorax fairly large on the right side and small apical left sided spontaneous pneumothorax noted with pneumomediastinum and bilateral dense inf iltrate at the bases, thoracic surgery has been consulted, patient may need an another chest tube on the right side versus VATS and preferably and of the small chest U was on the left side, will defer to expertise of thoracic surgery, labs reviewed medications reviewed care plan discussed at length with the staff 08/21/2020, patient seen eval examined during the rounds sitting upright in chair breathing slightly better oxygen saturation is 87-88%, patient is on high flow oxygen along with the nonrebreather mass, tachypneic tachycardic blood pressure is slightly high, patient has a right-sided chest tube is still leaking air, chest x-ray reviewed bilateral infiltrate is present with residual pneumothorax and subcu emphysema, labs from today reviewed white cell count remains elevated 20,000, renal functions stable, will attempt semi-prone with right side up, we will obtain an transfuse convalescent plasma 08/20/2020, patient seen eval examined during the rounds a labs reviewed medications reviewed this morning patient had problems with agitated anxiety and a prehension, oxygen saturation dropped down into 70s, rapid response was called and stat chest x-ray revealed presence of pneumothorax which is significant on the right side as well they may be a small mediastinal emphysema on the left side as well, patient has been made semi-prone with that oxygen saturation 100% nonrebreather mask improved to 92% patient is more calm, he remains afebrile temperature is 98.3 respiratory rate and mid to high 20s, weight is oxygen saturation 94%, chest x-ray finding reviewed 08/19/2020, patient seen eval examined during the rounds labs reviewed medications reviewed care plan discussed, patient is sitting upright on the bed on 100% nonrebreather mask, saturation remains marginal about 88%, remains afebrile, slightly anxious, advised based he hasn't to be on prone position as much as possible, labs reviewed white cell count is 17,000, patient remains on Remdesivir, Decadron, Lovenox August 18 2020, patient seen eval examined during the rounds is still on 5 L high flow oxygen, denies any chest pain breathing difficulties present, denies any cough or sputum production labs chest x-ray reviewed This is a 59-year-old male who has history of diabetes hypertension hypertensive cardiovascular disease and not feeling well for the last 5-6 days with cough and increased shortness of breath started with a sore throat, patient admitted into the hospital was spiking fever up to 101, oxygen saturation 90%, patient already has been started on REM doesn't wear and Decadron, his initial admit x-ray cystoscopy right midlung field and left lower lid feeding infiltrate patient gradually got worse initially has been on room air oxygen requirement keep on going up to 3 L and subsequently on 5 L high flow oxygen with that oxygen saturation is 93%, critical care time spent 35 minutes Objective - Vital Signs Vital signs: Vital Signs Temp 98.2 F 08/31/20 08:00 Pulse 101 H 08/31/20 11:00 Resp 34 H 08/31/20 11:00 BP 122/62 08/31/20 11:00 Pulse Ox 91 L 08/31/20 11:00 Intake & Output 08/30/20 08/31/20 08/31/20 18:59 06:59 18:59 Intake Total 2733.391 2149.676 1215.002 Output Total 980 835 350 Balance 5324.665 5401.676 865.002 Weight 115.8 kg 115.8 kg Intake: IV 1300 1250 650 Cefepime 1 gm In Sodium 50 50 Chloride 0.9% 50 ml @ 12. 5 mls/hr IVPB Q12HR [facility] Rx#:[id number] Cefepime 2 gm In Sodium 100 Chloride 0.9% 100 ml @ 25 mls/hr IVPB Q12HR [facility] Rx #:[id number] Dextrose 5% in Water 1, 600 600 300 000 ml @ 50 mls/hr IV . Q23H [facility] with Sodium Bicarb (1 Meq/ml) 150 ml Rx#:[id number] Sodium Chloride 0.9% 1, 600 600 300 000 ml @ 50 mls/hr IV . Q20H [facility] Rx#:[id number] Intake, IV Titration 719.391 415.676 245.002 Amount Cisatracurium 200 mg In 162.437 200 Sodium Chloride 0.9% 180 ml @ 1 MCG/KG/MIN 5.994 mls/hr IV .Q24H [facility] Rx#: [id number] Insulin Regular 100 unit 156.954 149.564 145.002 In Sodium Chloride 0.9% 100 ml @ Per Protocol IV .Q0M [facility] Rx#:[id number] propofoL 1,000 mg In 400.000 66.112 100 Empty Bag 1 bag @ Titrate IV .Q0M [facility] Rx#: [id number] Tube Feeding 624 364 260 Other 90 120 60 Output: Chest Tube Drainage 200 30 Chest Tube Right 130 Chest Tube Right Upper 30 Left Upper Anterior Chest 70 Urine 780 835 320 Other: Voiding Method Indwelling Catheter Indwelling Catheter Indwelling Catheter - Exam - Constitutional General appearance: Intubated medically paralyzed on full ventilator support - EENT Eyes: EOMI, PERRLA Ears: bilateral: normal - Neck Neck: normal ROM Carotids: bilateral: upstroke normal Thyroid: bilateral: normal size - Respiratory Respiratory: bilateral: diminished - Cardiovascular Rhythm: regular Heart sounds: normal: S1, S2 - Gastrointestinal General gastrointestinal: normal bowel sounds - Neurologic Neurologic: CNII-XII intact - Musculoskeletal Musculoskeletal: gait normal, generalized weakness, strength equal bilaterally - Psychiatric Psychiatric: Appears, now post medical paralysis - Labs CBC & Chem 7: 08/31/20 04:26 08/31/20 04:26 Labs: Abnormal Lab Results - Last 24 Hours (Table) 08/30/20 08/30/20 08/30/20 Range/Units 09:06 12:48 13:57 WBC (3.8-10.6) k/uL RBC (4.30-5.90) m/uL Hgb (13.0-17.5) gm/dL Hct (39.0-53.0) % Plt Count (150-450) k/uL Neutrophils # (1.3-7.7) k/uL Lymphocytes # (1.0-4.8) k/uL D-Dimer (<0.60) mg/L FEU ABG pH 7.18 L* (7.35-7.45) ABG pCO2 (35-45) mmHg ABG pO2 (83-108) mmHg ABG O2 Saturation (94-97) % Potassium (3.5-5.1) mmol/L Carbon Dioxide (22-30) mmol/L BUN (9-20) mg/dL Creatinine (0.66-1.25) mg/dL Glucose (74-99) mg/dL POC Glucose (mg/dL) 140 H 124 H (75-99) mg/dL Calcium (8.4-10.2) mg/dL Ferritin (22.0-322.0) ng/mL Lactate Dehydrogenase (313-618) U/L CK-MB (CK-2) (0.0-2.4) ng/mL C-Reactive Protein (<10.0) mg/L Total Protein (6.3-8.2) g/dL Albumin (3.5-5.0) g/dL 08/30/20 08/30/20 08/30/20 Range/Units 15:07 15:57 16:55 WBC (3.8-10.6) k/uL RBC (4.30-5.90) m/uL Hgb (13.0-17.5) gm/dL Hct (39.0-53.0) % Plt Count (150-450) k/uL Neutrophils # (1.3-7.7) k/uL Lymphocytes # (1.0-4.8) k/uL D-Dimer (<0.60) mg/L FEU ABG pH (7.35-7.45) ABG pCO2 (35-45) mmHg ABG pO2 (83-108) mmHg ABG O2 Saturation (94-97) % Potassium (3.5-5.1) mmol/L Carbon Dioxide (22-30) mmol/L BUN (9-20) mg/dL Creatinine (0.66-1.25) mg/dL Glucose (74-99) mg/dL POC Glucose (mg/dL) 160 H 186 H 187 H (75-99) mg/dL Calcium (8.4-10.2) mg/dL Ferritin (22.0-322.0) ng/mL Lactate Dehydrogenase (313-618) U/L CK-MB (CK-2) (0.0-2.4) ng/mL C-Reactive Protein (<10.0) mg/L Total Protein (6.3-8.2) g/dL Albumin (3.5-5.0) g/dL 08/30/20 08/30/20 08/30/20 Range/Units 17:46 20:48 22:01 WBC (3.8-10.6) k/uL RBC (4.30-5.90) m/uL Hgb (13.0-17.5) gm/dL Hct (39.0-53.0) % Plt Count (150-450) k/uL Neutrophils # (1.3-7.7) k/uL Lymphocytes # (1.0-4.8) k/uL D-Dimer (<0.60) mg/L FEU ABG pH (7.35-7.45) ABG pCO2 (35-45) mmHg ABG pO2 (83-108) mmHg ABG O2 Saturation (94-97) % Potassium (3.5-5.1) mmol/L Carbon Dioxide (22-30) mmol/L BUN (9-20) mg/dL Creatinine (0.66-1.25) mg/dL Glucose (74-99) mg/dL POC Glucose (mg/dL) 191 H 157 H 133 H (75-99) mg/dL Calcium (8.4-10.2) mg/dL Ferritin (22.0-322.0) ng/mL Lactate Dehydrogenase (313-618) U/L CK-MB (CK-2) (0.0-2.4) ng/mL C-Reactive Protein (<10.0) mg/L Total Protein (6.3-8.2) g/dL Albumin (3.5-5.0) g/dL 08/30/20 08/31/20 08/31/20 Range/Units 23:07 00:20 01:02 WBC (3.8-10.6) k/uL RBC (4.30-5.90) m/uL Hgb (13.0-17.5) gm/dL Hct (39.0-53.0) % Plt Count (150-450) k/uL Neutrophils # (1.3-7.7) k/uL Lymphocytes # (1.0-4.8) k/uL D-Dimer (<0.60) mg/L FEU ABG pH (7.35-7.45) ABG pCO2 (35-45) mmHg ABG pO2 (83-108) mmHg ABG O2 Saturation (94-97) % Potassium (3.5-5.1) mmol/L Carbon Dioxide (22-30) mmol/L BUN (9-20) mg/dL Creatinine (0.66-1.25) mg/dL Glucose (74-99) mg/dL POC Glucose (mg/dL) 127 H 151 H 169 H (75-99) mg/dL Calcium (8.4-10.2) mg/dL Ferritin (22.0-322.0) ng/mL Lactate Dehydrogenase (313-618) U/L CK-MB (CK-2) (0.0-2.4) ng/mL C-Reactive Protein (<10.0) mg/L Total Protein (6.3-8.2) g/dL Albumin (3.5-5.0) g/dL 08/31/20 08/31/20 08/31/20 Range/Units 04:01 04:26 04:26 WBC 17.6 H (3.8-10.6) k/uL RBC 4.07 L (4.30-5.90) m/uL Hgb 11.9 L (13.0-17.5) gm/dL Hct 35.8 L (39.0-53.0) % Plt Count 146 L (150-450) k/uL Neutrophils # 16.4 H (1.3-7.7) k/uL Lymphocytes # 0.1 L (1.0-4.8) k/uL D-Dimer (<0.60) mg/L FEU ABG pH (7.35-7.45) ABG pCO2 (35-45) mmHg ABG pO2 (83-108) mmHg ABG O2 Saturation (94-97) % Potassium 5.2 H (3.5-5.1) mmol/L Carbon Dioxide 21 L (22-30) mmol/L BUN 149 H* (9-20) mg/dL Creatinine 6.51 H (0.66-1.25) mg/dL Glucose 131 H (74-99) mg/dL POC Glucose (mg/dL) 156 H (75-99) mg/dL Calcium 7.0 L (8.4-10.2) mg/dL Ferritin 1121.1 H (22.0-322.0) ng/mL Lactate Dehydrogenase 1124 H (313-618) U/L CK-MB (CK-2) (0.0-2.4) ng/mL C-Reactive Protein 61.6 H (<10.0) mg/L Total Protein 4.9 L (6.3-8.2) g/dL Albumin 2.2 L (3.5-5.0) g/dL 08/31/20 08/31/20 08/31/20 Range/Units 04:26 04:26 06:01 WBC (3.8-10.6) k/uL RBC (4.30-5.90) m/uL Hgb (13.0-17.5) gm/dL Hct (39.0-53.0) % Plt Count (150-450) k/uL Neutrophils # (1.3-7.7) k/uL Lymphocytes # (1.0-4.8) k/uL D-Dimer 4.25 H (<0.60) mg/L FEU ABG pH (7.35-7.45) ABG pCO2 (35-45) mmHg ABG pO2 (83-108) mmHg ABG O2 Saturation (94-97) % Potassium (3.5-5.1) mmol/L Carbon Dioxide (22-30) mmol/L BUN (9-20) mg/dL Creatinine (0.66-1.25) mg/dL Glucose (74-99) mg/dL POC Glucose (mg/dL) 112 H (75-99) mg/dL Calcium (8.4-10.2) mg/dL Ferritin (22.0-322.0) ng/mL Lactate Dehydrogenase (313-618) U/L CK-MB (CK-2) 7.6 H (0.0-2.4) ng/mL C-Reactive Protein (<10.0) mg/L Total Protein (6.3-8.2) g/dL Albumin (3.5-5.0) g/dL 08/31/20 08/31/20 08/31/20 Range/Units 06:02 08:51 10:07 WBC (3.8-10.6) k/uL RBC (4.30-5.90) m/uL Hgb (13.0-17.5) gm/dL Hct (39.0-53.0) % Plt Count (150-450) k/uL Neutrophils # (1.3-7.7) k/uL Lymphocytes # (1.0-4.8) k/uL D-Dimer (<0.60) mg/L FEU ABG pH 7.18 L* (7.35-7.45) ABG pCO2 58 H (35-45) mmHg ABG pO2 77 L (83-108) mmHg ABG O2 Saturation 90.9 L (94-97) % Potassium (3.5-5.1) mmol/L Carbon Dioxide (22-30) mmol/L BUN (9-20) mg/dL Creatinine (0.66-1.25) mg/dL Glucose (74-99) mg/dL POC Glucose (mg/dL) 176 H 201 H (75-99) mg/dL Calcium (8.4-10.2) mg/dL Ferritin (22.0-322.0) ng/mL Lactate Dehydrogenase (313-618) U/L CK-MB (CK-2) (0.0-2.4) ng/mL C-Reactive Protein (<10.0) mg/L Total Protein (6.3-8.2) g/dL Albumin (3.5-5.0) g/dL 08/31/20 08/31/20 Range/Units 11:07 12:09 WBC (3.8-10.6) k/uL RBC (4.30-5.90) m/uL Hgb (13.0-17.5) gm/dL Hct (39.0-53.0) % Plt Count (150-450) k/uL Neutrophils # (1.3-7.7) k/uL Lymphocytes # (1.0-4.8) k/uL D-Dimer (<0.60) mg/L FEU ABG pH (7.35-7.45) ABG pCO2 (35-45) mmHg ABG pO2 (83-108) mmHg ABG O2 Saturation (94-97) % Potassium (3.5-5.1) mmol/L Carbon Dioxide (22-30) mmol/L BUN (9-20) mg/dL Creatinine (0.66-1.25) mg/dL Glucose (74-99) mg/dL POC Glucose (mg/dL) 199 H 210 H (75-99) mg/dL Calcium (8.4-10.2) mg/dL Ferritin (22.0-322.0) ng/mL Lactate Dehydrogenase (313-618) U/L CK-MB (CK-2) (0.0-2.4) ng/mL C-Reactive Protein (<10.0) mg/L Total Protein (6.3-8.2) g/dL Albumin (3.5-5.0) g/dL Assessment and Plan Assessment: Acute hypoxic and hypercapnic respiratory failure Status post respiratory arrest patient intubated MSSA pneumonia Acute kidney injury likely related to acute tubular necrosis as well as vancomycin associated renal damage Right spontaneous pneumothorax in spite of right-sided double chest tube persistent air leak Anterior posterior pneumothorax on the left side status post left-sided chest tube Extensive Pneumomediastinum Left spontaneous pneumothorax, will put a small bore chest tube to avoid tension pneumothorax Acute hypoxic respiratory failure Covid 19 pneumonia Type 2 diabetes mellitus Hypertension hypertensive cardiovascular disease Dehydration hypovolemia and hyponatremia Depression Overall prognosis is very poor Plan: Chest tube assessment and plan for bilateral pneumothoraces and pneumo mediastinum as above, continue suction 14 cm water on the right side 20 cm water and left side Bicarb drip, 50 mEq of bicarbonate as needed Hemodialysis as per renal services Monitor renal output closely Continue antihypertensive agent from home Continue to follow sugars closely Observe off of vancomycin, continue cefepime adjusted for renal failure Ventilator adjustment as needed and adjustment of PEEP as noted above Status post Convalescent plasma Agree with supplemental oxygen and nonrebreather mask may need BiPAP as needed O follow closely Prone positioning as much as 16 hour a day either continuous or intermittent Deep breathing exercise incentive spirometry Increase activity as tolerated Continue Decadron and IV Remdesivir for 10 and 5 days respectively Further plan of care as per clinical response of the patient, overall prognosis is guarded Time with Patient: Greater than 30
[2020-08-31 13:13] LABS: Glucose,Whole Blood 200 mg/dL (75-99)
[2020-08-31 14:06] LABS: Glucose,Whole Blood 193 mg/dL (75-99)
--- NOTE | 2020-08-31 14:15 | P.PN ---
Subjective Patient is seen in follow-up for acute kidney injury. Renal function continues to worsen. Urine output also dropping despite IV Lasix. Bilateral chest tubes are in place. He is not on any vasopressor support. He is maintained on tube feeding as well as IV fluids. He is currently on 90% FiO2. Vital signs are stable. Intubated. Regular rhythm noted on the monitor. Exam discussed in detail with the nurse. Objective - Vital Signs Vital signs: Vital Signs Temp 97.5 F L 08/31/20 12:00 Pulse 98 08/31/20 14:00 Resp 34 H 08/31/20 14:00 BP 137/70 08/31/20 14:00 Pulse Ox 93 L 08/31/20 14:00 Intake & Output 08/30/20 08/31/20 08/31/20 18:59 06:59 18:59 Intake Total 2733.391 2149.676 1564.368 Output Total 980 835 415 Balance 9879.653 4874.676 1149.368 Weight 115.8 kg 115.8 kg Intake: IV 1300 1250 825 Cefepime 1 gm In Sodium 50 50 Chloride 0.9% 50 ml @ 12. 5 mls/hr IVPB Q12HR [facility] Rx#:[id number] Cefepime 2 gm In Sodium 100 Chloride 0.9% 100 ml @ 25 mls/hr IVPB Q12HR [facility] Rx #:[id number] Dextrose 5% in Water 1, 600 600 400 000 ml @ 50 mls/hr IV . Q23H [facility] with Sodium Bicarb (1 Meq/ml) 150 ml Rx#:[id number] Sodium Chloride 0.9% 1, 600 600 375 000 ml @ 50 mls/hr IV . Q20H [facility] Rx#:[id number] Intake, IV Titration 719.391 415.676 295.368 Amount Cisatracurium 200 mg In 162.437 200 Sodium Chloride 0.9% 180 ml @ 1 MCG/KG/MIN 5.994 mls/hr IV .Q24H [facility] Rx#: [id number] Insulin Regular 100 unit 156.954 149.564 195.368 In Sodium Chloride 0.9% 100 ml @ Per Protocol IV .Q0M [facility] Rx#:[id number] propofoL 1,000 mg In 400.000 66.112 100 Empty Bag 1 bag @ Titrate IV .Q0M [facility] Rx#: [id number] Tube Feeding 624 364 384 Other 90 120 60 Output: Chest Tube Drainage 200 30 Chest Tube Right 130 Chest Tube Right Upper 30 Left Upper Anterior Chest 70 Urine 780 835 385 Other: Voiding Method Indwelling Catheter Indwelling Catheter Indwelling Catheter - Labs CBC & Chem 7: 08/31/20 04:26 08/31/20 04:26 Labs: Abnormal Lab Results - Last 24 Hours (Table) 08/30/20 08/30/20 08/30/20 Range/Units 09:06 15:07 15:57 WBC (3.8-10.6) k/uL RBC (4.30-5.90) m/uL Hgb (13.0-17.5) gm/dL Hct (39.0-53.0) % Plt Count (150-450) k/uL Neutrophils # (1.3-7.7) k/uL Lymphocytes # (1.0-4.8) k/uL D-Dimer (<0.60) mg/L FEU ABG pH 7.18 L* (7.35-7.45) ABG pCO2 (35-45) mmHg ABG pO2 (83-108) mmHg ABG O2 Saturation (94-97) % Potassium (3.5-5.1) mmol/L Carbon Dioxide (22-30) mmol/L BUN (9-20) mg/dL Creatinine (0.66-1.25) mg/dL Glucose (74-99) mg/dL POC Glucose (mg/dL) 160 H 186 H (75-99) mg/dL Calcium (8.4-10.2) mg/dL Ferritin (22.0-322.0) ng/mL Lactate Dehydrogenase (313-618) U/L CK-MB (CK-2) (0.0-2.4) ng/mL C-Reactive Protein (<10.0) mg/L Total Protein (6.3-8.2) g/dL Albumin (3.5-5.0) g/dL 08/30/20 08/30/20 08/30/20 Range/Units 16:55 17:46 20:48 WBC (3.8-10.6) k/uL RBC (4.30-5.90) m/uL Hgb (13.0-17.5) gm/dL Hct (39.0-53.0) % Plt Count (150-450) k/uL Neutrophils # (1.3-7.7) k/uL Lymphocytes # (1.0-4.8) k/uL D-Dimer (<0.60) mg/L FEU ABG pH (7.35-7.45) ABG pCO2 (35-45) mmHg ABG pO2 (83-108) mmHg ABG O2 Saturation (94-97) % Potassium (3.5-5.1) mmol/L Carbon Dioxide (22-30) mmol/L BUN (9-20) mg/dL Creatinine (0.66-1.25) mg/dL Glucose (74-99) mg/dL POC Glucose (mg/dL) 187 H 191 H 157 H (75-99) mg/dL Calcium (8.4-10.2) mg/dL Ferritin (22.0-322.0) ng/mL Lactate Dehydrogenase (313-618) U/L CK-MB (CK-2) (0.0-2.4) ng/mL C-Reactive Protein (<10.0) mg/L Total Protein (6.3-8.2) g/dL Albumin (3.5-5.0) g/dL 08/30/20 08/30/20 08/31/20 Range/Units 22:01 23:07 00:20 WBC (3.8-10.6) k/uL RBC (4.30-5.90) m/uL Hgb (13.0-17.5) gm/dL Hct (39.0-53.0) % Plt Count (150-450) k/uL Neutrophils # (1.3-7.7) k/uL Lymphocytes # (1.0-4.8) k/uL D-Dimer (<0.60) mg/L FEU ABG pH (7.35-7.45) ABG pCO2 (35-45) mmHg ABG pO2 (83-108) mmHg ABG O2 Saturation (94-97) % Potassium (3.5-5.1) mmol/L Carbon Dioxide (22-30) mmol/L BUN (9-20) mg/dL Creatinine (0.66-1.25) mg/dL Glucose (74-99) mg/dL POC Glucose (mg/dL) 133 H 127 H 151 H (75-99) mg/dL Calcium (8.4-10.2) mg/dL Ferritin (22.0-322.0) ng/mL Lactate Dehydrogenase (313-618) U/L CK-MB (CK-2) (0.0-2.4) ng/mL C-Reactive Protein (<10.0) mg/L Total Protein (6.3-8.2) g/dL Albumin (3.5-5.0) g/dL 08/31/20 08/31/20 08/31/20 Range/Units 01:02 04:01 04:26 WBC 17.6 H (3.8-10.6) k/uL RBC 4.07 L (4.30-5.90) m/uL Hgb 11.9 L (13.0-17.5) gm/dL Hct 35.8 L (39.0-53.0) % Plt Count 146 L (150-450) k/uL Neutrophils # 16.4 H (1.3-7.7) k/uL Lymphocytes # 0.1 L (1.0-4.8) k/uL D-Dimer (<0.60) mg/L FEU ABG pH (7.35-7.45) ABG pCO2 (35-45) mmHg ABG pO2 (83-108) mmHg ABG O2 Saturation (94-97) % Potassium (3.5-5.1) mmol/L Carbon Dioxide (22-30) mmol/L BUN (9-20) mg/dL Creatinine (0.66-1.25) mg/dL Glucose (74-99) mg/dL POC Glucose (mg/dL) 169 H 156 H (75-99) mg/dL Calcium (8.4-10.2) mg/dL Ferritin (22.0-322.0) ng/mL Lactate Dehydrogenase (313-618) U/L CK-MB (CK-2) (0.0-2.4) ng/mL C-Reactive Protein (<10.0) mg/L Total Protein (6.3-8.2) g/dL Albumin (3.5-5.0) g/dL 11/08/31/20 08/31/20 Range/Units 04:26 04:26 04:26 WBC (3.8-10.6) k/uL RBC (4.30-5.90) m/uL Hgb (13.0-17.5) gm/dL Hct (39.0-53.0) % Plt Count (150-450) k/uL Neutrophils # (1.3-7.7) k/uL Lymphocytes # (1.0-4.8) k/uL D-Dimer 4.25 H (<0.60) mg/L FEU ABG pH (7.35-7.45) ABG pCO2 (35-45) mmHg ABG pO2 (83-108) mmHg ABG O2 Saturation (94-97) % Potassium 5.2 H (3.5-5.1) mmol/L Carbon Dioxide 21 L (22-30) mmol/L BUN 149 H* (9-20) mg/dL Creatinine 6.51 H (0.66-1.25) mg/dL Glucose 131 H (74-99) mg/dL POC Glucose (mg/dL) (75-99) mg/dL Calcium 7.0 L (8.4-10.2) mg/dL Ferritin 1121.1 H (22.0-322.0) ng/mL Lactate Dehydrogenase 1124 H (313-618) U/L CK-MB (CK-2) 7.6 H (0.0-2.4) ng/mL C-Reactive Protein 61.6 H (<10.0) mg/L Total Protein 4.9 L (6.3-8.2) g/dL Albumin 2.2 L (3.5-5.0) g/dL 08/31/20 08/31/20 08/31/20 Range/Units 06:01 06:02 08:51 WBC (3.8-10.6) k/uL RBC (4.30-5.90) m/uL Hgb (13.0-17.5) gm/dL Hct (39.0-53.0) % Plt Count (150-450) k/uL Neutrophils # (1.3-7.7) k/uL Lymphocytes # (1.0-4.8) k/uL D-Dimer (<0.60) mg/L FEU ABG pH 7.18 L* (7.35-7.45) ABG pCO2 58 H (35-45) mmHg ABG pO2 77 L (83-108) mmHg ABG O2 Saturation 90.9 L (94-97) % Potassium (3.5-5.1) mmol/L Carbon Dioxide (22-30) mmol/L BUN (9-20) mg/dL Creatinine (0.66-1.25) mg/dL Glucose (74-99) mg/dL POC Glucose (mg/dL) 112 H 176 H (75-99) mg/dL Calcium (8.4-10.2) mg/dL Ferritin (22.0-322.0) ng/mL Lactate Dehydrogenase (313-618) U/L CK-MB (CK-2) (0.0-2.4) ng/mL C-Reactive Protein (<10.0) mg/L Total Protein (6.3-8.2) g/dL Albumin (3.5-5.0) g/dL 08/31/20 08/31/20 08/31/20 Range/Units 10:07 11:07 12:09 WBC (3.8-10.6) k/uL RBC (4.30-5.90) m/uL Hgb (13.0-17.5) gm/dL Hct (39.0-53.0) % Plt Count (150-450) k/uL Neutrophils # (1.3-7.7) k/uL Lymphocytes # (1.0-4.8) k/uL D-Dimer (<0.60) mg/L FEU ABG pH (7.35-7.45) ABG pCO2 (35-45) mmHg ABG pO2 (83-108) mmHg ABG O2 Saturation (94-97) % Potassium (3.5-5.1) mmol/L Carbon Dioxide (22-30) mmol/L BUN (9-20) mg/dL Creatinine (0.66-1.25) mg/dL Glucose (74-99) mg/dL POC Glucose (mg/dL) 201 H 199 H 210 H (75-99) mg/dL Calcium (8.4-10.2) mg/dL Ferritin (22.0-322.0) ng/mL Lactate Dehydrogenase (313-618) U/L CK-MB (CK-2) (0.0-2.4) ng/mL C-Reactive Protein (<10.0) mg/L Total Protein (6.3-8.2) g/dL Albumin (3.5-5.0) g/dL 08/31/20 08/31/20 Range/Units 13:11 14:04 WBC (3.8-10.6) k/uL RBC (4.30-5.90) m/uL Hgb (13.0-17.5) gm/dL Hct (39.0-53.0) % Plt Count (150-450) k/uL Neutrophils # (1.3-7.7) k/uL Lymphocytes # (1.0-4.8) k/uL D-Dimer (<0.60) mg/L FEU ABG pH (7.35-7.45) ABG pCO2 (35-45) mmHg ABG pO2 (83-108) mmHg ABG O2 Saturation (94-97) % Potassium (3.5-5.1) mmol/L Carbon Dioxide (22-30) mmol/L BUN (9-20) mg/dL Creatinine (0.66-1.25) mg/dL Glucose (74-99) mg/dL POC Glucose (mg/dL) 200 H 193 H (75-99) mg/dL Calcium (8.4-10.2) mg/dL Ferritin (22.0-322.0) ng/mL Lactate Dehydrogenase (313-618) U/L CK-MB (CK-2) (0.0-2.4) ng/mL C-Reactive Protein (<10.0) mg/L Total Protein (6.3-8.2) g/dL Albumin (3.5-5.0) g/dL Assessment and Plan Plan: Assessment: 1. Acute kidney injury secondary to ATN secondary to vancomycin toxicity. Renal function worsening. Creatinine 6.5 today. Urine output about 30 mL an hour. 2. Hyperkalemia secondary to acute kidney injury and lisinopril. 3. Acute hypoxic and hypercapnic respiratory failure. 4. Coated 19 pneumonia maintained on steroids and zinc now. 5. Respiratory and metabolic acidosis. 6. Pneumothorax status post bilateral chest tube placement. Plan: Maintain tube feeding but changed to low potassium feeding. Discontinue normal saline. Maintain bicarb drip at 50 mL an hour for the next 24 hours. Maintain IV Lasix. Wean FiO2. Consult vascular surgery for temporary dialysis catheter placement. Plan first treatment of hemodialysis today and second treatment tomorrow. Overall prognosis guarded.
--- NOTE | 2020-08-31 15:00 | P.GSCN ---
History of Present Illness Consult date: 08/31/20 Reason for Consult: Temporary hemodialysis catheter placement Requesting physician: Juan Hou History of present illness: This is a 59-year-old male with a past medical history which includes diabetes, hypertension, and coronary artery disease who was admitted approximately 2 weeks ago for complaints of cough and increased shortness of breath. He was positive for Covid 19 and diagnosed with Covid 19 pneumonia with acute hypoxic and hypercapnic respiratory failure. He subsequently has had worsening symptoms and was intubated on mechanical ventilation, he now has acute kidney injury which has been worsening, thus we were consulted to place a temporary hemodialysis catheter. He has a urinary catheter with minimal output despite loop diuretics. The patient remains intubated and sedated, he had a right and left spontaneous pneumothorax with chest tubes placed. He is currently on aspirin and Lovenox. Patient is a NO CODE STATUS. The nurse did discuss with the patient's regarding placement of temporary dialysis catheter with need for hemodialysis. The patient's is in agreement and consented for treatment. BUN 149, Creatinine 6.5. Review of Systems Review of systems deferred due to patient is sedated and intubated Past Medical History Past Medical History: Diabetes Mellitus, Hypertension History of Any Multi-Drug Resistant Organisms: None Reported Past Surgical History: Appendectomy Past Psychological History: No Psychological Hx Reported Smoking Status: Never smoker Past Alcohol Use History: None Reported Past Drug Use History: None Reported Medications and Allergies Home Medications Medication Instructions Recorded Confirmed Type Acetaminophen Tab [Tylenol] 1,000 mg PO Q4-6H PRN 08/14/20 08/14/20 History Aspirin EC [Ecotrin Low Dose] 81 mg PO HS 08/14/20 08/14/20 History Insulin Aspart [NovoLOG] See Protocol SQ TID-W/MEALS 08/14/20 08/14/20 History Lisinopril-Hctz 10-12.5 mg 1 tab PO DAILY 08/14/20 08/14/20 History [Zestoretic 10-12.5] metFORMIN HCL 1,000 mg PO BID-W/MEALS 08/14/20 08/14/20 History Allergies Allergy/AdvReac Type Severity Reaction Status Date / Time No Known Allergies Allergy Verified 08/14/20 18:01 Surgical - Exam Vital Signs Temp Pulse Resp BP Pulse Ox 101.7 F H 101 H 18 122/69 93 L 08/14/20 14:32 08/14/20 14:32 08/14/20 14:32 08/14/20 14:32 08/14/20 14:32 General appearance: The patient is sedated and intubated. HET: Head is normocephalic and atraumatic. Heart: Regular rate and rhythm noted on monitor. Neurological: Sedated and intubated. The rest of the exam is deferred to the medical team. Results - Labs 08/31/20 04:26 08/31/20 04:26 Abnormal Lab Results - Last 24 Hours (Table) 08/30/20 08/30/20 08/30/20 Range/Units 09:06 15:07 15:57 WBC (3.8-10.6) k/uL RBC (4.30-5.90) m/uL Hgb (13.0-17.5) gm/dL Hct (39.0-53.0) % Plt Count (150-450) k/uL Neutrophils # (1.3-7.7) k/uL Lymphocytes # (1.0-4.8) k/uL D-Dimer (<0.60) mg/L FEU ABG pH 7.18 L* (7.35-7.45) ABG pCO2 (35-45) mmHg ABG pO2 (83-108) mmHg ABG O2 Saturation (94-97) % Potassium (3.5-5.1) mmol/L Carbon Dioxide (22-30) mmol/L BUN (9-20) mg/dL Creatinine (0.66-1.25) mg/dL Glucose (74-99) mg/dL POC Glucose (mg/dL) 160 H 186 H (75-99) mg/dL Calcium (8.4-10.2) mg/dL Ferritin (22.0-322.0) ng/mL Lactate Dehydrogenase (313-618) U/L CK-MB (CK-2) (0.0-2.4) ng/mL C-Reactive Protein (<10.0) mg/L Total Protein (6.3-8.2) g/dL Albumin (3.5-5.0) g/dL 08/30/20 08/30/20 08/30/20 Range/Units 16:55 17:46 20:48 WBC (3.8-10.6) k/uL RBC (4.30-5.90) m/uL Hgb (13.0-17.5) gm/dL Hct (39.0-53.0) % Plt Count (150-450) k/uL Neutrophils # (1.3-7.7) k/uL Lymphocytes # (1.0-4.8) k/uL D-Dimer (<0.60) mg/L FEU ABG pH (7.35-7.45) ABG pCO2 (35-45) mmHg ABG pO2 (83-108) mmHg ABG O2 Saturation (94-97) % Potassium (3.5-5.1) mmol/L Carbon Dioxide (22-30) mmol/L BUN (9-20) mg/dL Creatinine (0.66-1.25) mg/dL Glucose (74-99) mg/dL POC Glucose (mg/dL) 187 H 191 H 157 H (75-99) mg/dL Calcium (8.4-10.2) mg/dL Ferritin (22.0-322.0) ng/mL Lactate Dehydrogenase (313-618) U/L CK-MB (CK-2) (0.0-2.4) ng/mL C-Reactive Protein (<10.0) mg/L Total Protein (6.3-8.2) g/dL Albumin (3.5-5.0) g/dL 08/30/20 08/30/20 08/31/20 Range/Units 22:01 23:07 00:20 WBC (3.8-10.6) k/uL RBC (4.30-5.90) m/uL Hgb (13.0-17.5) gm/dL Hct (39.0-53.0) % Plt Count (150-450) k/uL Neutrophils # (1.3-7.7) k/uL Lymphocytes # (1.0-4.8) k/uL D-Dimer (<0.60) mg/L FEU ABG pH (7.35-7.45) ABG pCO2 (35-45) mmHg ABG pO2 (83-108) mmHg ABG O2 Saturation (94-97) % Potassium (3.5-5.1) mmol/L Carbon Dioxide (22-30) mmol/L BUN (9-20) mg/dL Creatinine (0.66-1.25) mg/dL Glucose (74-99) mg/dL POC Glucose (mg/dL) 133 H 127 H 151 H (75-99) mg/dL Calcium (8.4-10.2) mg/dL Ferritin (22.0-322.0) ng/mL Lactate Dehydrogenase (313-618) U/L CK-MB (CK-2) (0.0-2.4) ng/mL C-Reactive Protein (<10.0) mg/L Total Protein (6.3-8.2) g/dL Albumin (3.5-5.0) g/dL 08/31/20 08/31/20 08/31/20 Range/Units 01:02 04:01 04:26 WBC 17.6 H (3.8-10.6) k/uL RBC 4.07 L (4.30-5.90) m/uL Hgb 11.9 L (13.0-17.5) gm/dL Hct 35.8 L (39.0-53.0) % Plt Count 146 L (150-450) k/uL Neutrophils # 16.4 H (1.3-7.7) k/uL Lymphocytes # 0.1 L (1.0-4.8) k/uL D-Dimer (<0.60) mg/L FEU ABG pH (7.35-7.45) ABG pCO2 (35-45) mmHg ABG pO2 (83-108) mmHg ABG O2 Saturation (94-97) % Potassium (3.5-5.1) mmol/L Carbon Dioxide (22-30) mmol/L BUN (9-20) mg/dL Creatinine (0.66-1.25) mg/dL Glucose (74-99) mg/dL POC Glucose (mg/dL) 169 H 156 H (75-99) mg/dL Calcium (8.4-10.2) mg/dL Ferritin (22.0-322.0) ng/mL Lactate Dehydrogenase (313-618) U/L CK-MB (CK-2) (0.0-2.4) ng/mL C-Reactive Protein (<10.0) mg/L Total Protein (6.3-8.2) g/dL Albumin (3.5-5.0) g/dL 08/31/20 08/31/20 08/31/20 Range/Units 04:26 04:26 04:26 WBC (3.8-10.6) k/uL RBC (4.30-5.90) m/uL Hgb (13.0-17.5) gm/dL Hct (39.0-53.0) % Plt Count (150-450) k/uL Neutrophils # (1.3-7.7) k/uL Lymphocytes # (1.0-4.8) k/uL D-Dimer 4.25 H (<0.60) mg/L FEU ABG pH (7.35-7.45) ABG pCO2 (35-45) mmHg ABG pO2 (83-108) mmHg ABG O2 Saturation (94-97) % Potassium 5.2 H (3.5-5.1) mmol/L Carbon Dioxide 21 L (22-30) mmol/L BUN 149 H* (9-20) mg/dL Creatinine 6.51 H (0.66-1.25) mg/dL Glucose 131 H (74-99) mg/dL POC Glucose (mg/dL) (75-99) mg/dL Calcium 7.0 L (8.4-10.2) mg/dL Ferritin 1121.1 H (22.0-322.0) ng/mL Lactate Dehydrogenase 1124 H (313-618) U/L CK-MB (CK-2) 7.6 H (0.0-2.4) ng/mL C-Reactive Protein 61.6 H (<10.0) mg/L Total Protein 4.9 L (6.3-8.2) g/dL Albumin 2.2 L (3.5-5.0) g/dL 08/31/20 08/31/20 08/31/20 Range/Units 06:01 06:02 08:51 WBC (3.8-10.6) k/uL RBC (4.30-5.90) m/uL Hgb (13.0-17.5) gm/dL Hct (39.0-53.0) % Plt Count (150-450) k/uL Neutrophils # (1.3-7.7) k/uL Lymphocytes # (1.0-4.8) k/uL D-Dimer (<0.60) mg/L FEU ABG pH 7.18 L* (7.35-7.45) ABG pCO2 58 H (35-45) mmHg ABG pO2 77 L (83-108) mmHg ABG O2 Saturation 90.9 L (94-97) % Potassium (3.5-5.1) mmol/L Carbon Dioxide (22-30) mmol/L BUN (9-20) mg/dL Creatinine (0.66-1.25) mg/dL Glucose (74-99) mg/dL POC Glucose (mg/dL) 112 H 176 H (75-99) mg/dL Calcium (8.4-10.2) mg/dL Ferritin (22.0-322.0) ng/mL Lactate Dehydrogenase (313-618) U/L CK-MB (CK-2) (0.0-2.4) ng/mL C-Reactive Protein (<10.0) mg/L Total Protein (6.3-8.2) g/dL Albumin (3.5-5.0) g/dL 08/31/20 08/31/20 08/31/20 Range/Units 10:07 11:07 12:09 WBC (3.8-10.6) k/uL RBC (4.30-5.90) m/uL Hgb (13.0-17.5) gm/dL Hct (39.0-53.0) % Plt Count (150-450) k/uL Neutrophils # (1.3-7.7) k/uL Lymphocytes # (1.0-4.8) k/uL D-Dimer (<0.60) mg/L FEU ABG pH (7.35-7.45) ABG pCO2 (35-45) mmHg ABG pO2 (83-108) mmHg ABG O2 Saturation (94-97) % Potassium (3.5-5.1) mmol/L Carbon Dioxide (22-30) mmol/L BUN (9-20) mg/dL Creatinine (0.66-1.25) mg/dL Glucose (74-99) mg/dL POC Glucose (mg/dL) 201 H 199 H 210 H (75-99) mg/dL Calcium (8.4-10.2) mg/dL Ferritin (22.0-322.0) ng/mL Lactate Dehydrogenase (313-618) U/L CK-MB (CK-2) (0.0-2.4) ng/mL C-Reactive Protein (<10.0) mg/L Total Protein (6.3-8.2) g/dL Albumin (3.5-5.0) g/dL 08/31/20 08/31/20 Range/Units 13:11 14:04 WBC (3.8-10.6) k/uL RBC (4.30-5.90) m/uL Hgb (13.0-17.5) gm/dL Hct (39.0-53.0) % Plt Count (150-450) k/uL Neutrophils # (1.3-7.7) k/uL Lymphocytes # (1.0-4.8) k/uL D-Dimer (<0.60) mg/L FEU ABG pH (7.35-7.45) ABG pCO2 (35-45) mmHg ABG pO2 (83-108) mmHg ABG O2 Saturation (94-97) % Potassium (3.5-5.1) mmol/L Carbon Dioxide (22-30) mmol/L BUN (9-20) mg/dL Creatinine (0.66-1.25) mg/dL Glucose (74-99) mg/dL POC Glucose (mg/dL) 200 H 193 H (75-99) mg/dL Calcium (8.4-10.2) mg/dL Ferritin (22.0-322.0) ng/mL Lactate Dehydrogenase (313-618) U/L CK-MB (CK-2) (0.0-2.4) ng/mL C-Reactive Protein (<10.0) mg/L Total Protein (6.3-8.2) g/dL Albumin (3.5-5.0) g/dL Diabetes panel 08/31/20 Range/Units 04:26 Sodium 138 (137-145) mmol/L Potassium 5.2 H (3.5-5.1) mmol/L Chloride 105 (98-107) mmol/L Carbon Dioxide 21 L (22-30) mmol/L BUN 149 H* (9-20) mg/dL Creatinine 6.51 H (0.66-1.25) mg/dL Glucose 131 H (74-99) mg/dL Calcium 7.0 L (8.4-10.2) mg/dL AST 28 (17-59) U/L ALT 23 (4-49) U/L Alkaline Phosphatase 100 (38-126) U/L Total Protein 4.9 L (6.3-8.2) g/dL Albumin 2.2 L (3.5-5.0) g/dL Calcium panel 08/31/20 Range/Units 04:26 Calcium 7.0 L (8.4-10.2) mg/dL Albumin 2.2 L (3.5-5.0) g/dL Pituitary panel 08/31/20 Range/Units 04:26 Sodium 138 (137-145) mmol/L Potassium 5.2 H (3.5-5.1) mmol/L Chloride 105 (98-107) mmol/L Carbon Dioxide 21 L (22-30) mmol/L BUN 149 H* (9-20) mg/dL Creatinine 6.51 H (0.66-1.25) mg/dL Glucose 131 H (74-99) mg/dL Calcium 7.0 L (8.4-10.2) mg/dL Adrenal panel 08/31/20 Range/Units 04:26 Sodium 138 (137-145) mmol/L Potassium 5.2 H (3.5-5.1) mmol/L Chloride 105 (98-107) mmol/L Carbon Dioxide 21 L (22-30) mmol/L BUN 149 H* (9-20) mg/dL Creatinine 6.51 H (0.66-1.25) mg/dL Glucose 131 H (74-99) mg/dL Calcium 7.0 L (8.4-10.2) mg/dL Total Bilirubin 0.4 (0.2-1.3) mg/dL AST 28 (17-59) U/L ALT 23 (4-49) U/L Alkaline Phosphatase 100 (38-126) U/L Total Protein 4.9 L (6.3-8.2) g/dL Albumin 2.2 L (3.5-5.0) g/dL Assessment and Plan Assessment: 1. Acute kidney injury secondary to ATN with worsening renal function 2. Hyperkalemia secondary to acute kidney injury and lisinopril 3. Acute hypoxic and hypercapnic respiratory failure 4. Covid-19 pneumonia 5. Diabetes mellitus 6. Hypertension Plan: Obtain consent from family. Plan for bedside temporary hemodialysis catheter this afternoon. Hemodialysis as ordered per nephrology. Thank you for this consultation and allowing us take part in the plan of care of the patient during his hospital stay. The impression and plan of care has been dictated as directed. Dr. Hallman I performed a history and examination of this patient, discussed the same with the dictator. I agree with the dictator's note ,documented as a scribe. Any additional findings or plans will be noted.
[2020-08-31 15:20] LABS: Glucose,Whole Blood 200 mg/dL (75-99)
[2020-08-31 16:22] LABS: Glucose,Whole Blood 175 mg/dL (75-99)
--- NOTE | 2020-08-31 16:34 | P.OP ---
Date of Procedure: 08/31/20 Description of Procedure: SURGEON: Ana Hallman DO DOOR TECHNICIAN: None PREOPERATIVE DIAGNOSIS: Acute kidney injury, elevated creatinine, Covid19 acute vent dependent respiratory failure POSTOPERATIVE DIAGNOSIS: Same OPERATION: Ultrasound-guided [right]common femoral vein access, placement of temporary dialysis catheter DESCRIPTION OF PROCEDURE: An ultrasound was utilized and the [right] common femoral vein was identified. The groin was prepped and draped in usual sterile fashion. A preprocedure timeout was performed, all parties were in agreement. The skin overlying the vein was anesthetized with 1% lidocaine plain. A multipurpose needle was utilized and the femoral vein was accessed on first attempt with return of dark venous, nonpulsatile blood. The guidewire was passed easily. Serial dilation was performed of the subcutaneous tissues. The catheter was placed and secured with suture. It aspirated and flushed freely. A dressing was applied. The patient tolerated the procedure well.
[2020-08-31] MEDS: FLUCONAZOLE IN NACL,ISO-OSM 100 MG in SALINE 1 50ML.BAG IVPB SCH (17:29)
[2020-08-31 17:49] LABS: Glucose,Whole Blood 137 mg/dL (75-99)
[2020-08-31 19:19] LABS: Glucose,Whole Blood 128 mg/dL (75-99)
[2020-08-31] MEDS: ASPIRIN 81 MG PO SCH (20:47)
[2020-08-31 21:01] LABS: Glucose,Whole Blood 189 mg/dL (75-99)
[2020-08-31 22:22] LABS: Glucose,Whole Blood 169 mg/dL (75-99)
--- NOTE | 2020-08-31 22:42 | P.PN ---
Subjective Progress Note Date: 08/31/20 Covid 19 infection/pneumonia Vent dependent respiratory failure secondary to 1 Bilateral pneumothorax; status post chest tube placement 53-year-old male patient admitted for COVID-19 pneumonitis/sepsis; patient declined despite antibiotic therapy and treatment with high flow oxygen per nasal cannula and developed bilateral spontaneous pneumothorax with pneumomediastinum and subcutaneous emphysema for which he underwent chest tube placement; patient's respiratory status continued to deteriorate and he was ultimately intubated Patient remains in ICU intubated and mechanically ventilated 08/29/2020 patient seen seen and evaluated at bedside; remains intubated and mechanically ventilated;, saturation remains borderline however they were 90% in the morning came down to 84%; patient remains on 100% oxygen; arterial blood gases reviewed; metabolic acidosis appears to be related to acute renal failure; 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 for nonoliguric acute renal failure likely acute tubular necrosis; patient remains on gentle IV fluid hydration; received 1 amp of bicarb with bicarbonate drip; inflammatory markers are slightly improved; CRP remains elevated; sputum is positive for MSSA and vancomycin has been discontinued patient has 2 chest tubes on the right side and one chest tube on the left side due to pneumomediastinum and bilateral pneumothorax they've been aching is minimal on left and right bottom chest tube significant on apical chest tube however 08/30/2020, patient remains in ICU; medically sedated and paralyzed of propofol and Nimbex, on full ventilator support; saturation 91-92% bilateral chest tubes are present minimal air leak on the left side, right-sided apical tube still having persistent air leak, tolerating tube feed well labs reviewed arterial blood gas reviewed as well along with radiographic findings patient BUN/creatinine continue to go up consistent with acute tubular necrosis likely related to covid 19 sepsis, up to 132 and 5.86 08/31/2020 Patient is seen and evaluated in follow up and currently remains in the ICU and being closely monitored. Patient remains on the mechanical ventilator and currently sedated. Multiple medical consultations following. Nephrology following and has consulted vascular surgery for temporary cath placement for hemodialysis as the BUN/CR continue to worsen. Creatinine today is 6.51 with a BUN of 149. CT chest was ordered and currently pending as patient continues to remain on the vent and also continues to have 2 chest tubes on the right with one on the left. Continued air leak present on the right. a 2D echo was ordered as well. Will repeat am labs and continue to monitor the patient closely. Review of systems: Unable to obtain as patient is intubated and sedated Active Medications Acetaminophen (Acetaminophen Tab 500 Mg Tab) 1,000 mg PO Q6HR PRN PRN Reason: Fever and/ or Pain Last Admin: 08/21/20 10:19 Dose: 1,000 mg Documented by: Ascorbic Acid (Ascorbic Acid 500 Mg Tab) 1,000 mg PO DAILY [facility] Last Admin: 08/31/20 10:10 Dose: 1,000 mg Documented by: Aspirin (Aspirin 81 Mg) 81 mg PO HS [facility] Last Admin: 08/31/20 20:47 Dose: 81 mg Documented by: Chlorhexidine Gluconate (Chlorhexidine Gluconate 15 Ml Cup) 15 ml MUCOUS MEM BID [facility] Last Admin: 08/31/20 20:46 Dose: 15 ml Documented by: Dexamethasone Sodium Phosphate (Dexamethasone Sod Phosphate 10 Mg/Ml 1 Ml Vial) 6 mg IV DAILY [facility] Last Admin: 08/31/20 10:17 Dose: 6 mg Documented by: Enoxaparin Sodium (Enoxaparin 60 Mg/0.6 Ml Syringe) 60 mg SQ Q24HR [facility] Last Admin: 08/31/20 10:17 Dose: 60 mg Documented by: Famotidine (Famotidine 20 Mg/2 Ml Vial) 20 mg IV DAILY [facility] Last Admin: 08/31/20 10:18 Dose: 20 mg Documented by: Furosemide (Furosemide 10 Mg/Ml 10 Ml Vial) 60 mg IV Q12HR [facility] Last Admin: 08/31/20 20:46 Dose: 60 mg Documented by: Hydromorphone HCl (Hydromorphone 1 Mg/Ml 1 Ml Syringe) 1 mg IVP Q2HR PRN PRN Reason: Pain Last Admin: 08/26/20 04:12 Dose: 1 mg Documented by: Propofol 1,000 mg/ IV Solution 100 mls @ 0 mls/hr IV .Q0M [facility]; Protocol Last Admin: 08/31/20 22:11 Dose: 30 mcg/kg/min, 20.988 mls/hr Documented by: Cisatracurium Besylate 200 mg/ (Sodium Chloride) 200 mls @ 5.994 mls/hr IV .Q24H [facility]; Protocol Last Admin: 08/31/20 14:55 Dose: 3 mcg/kg/min, 17.982 mls/hr Documented by: Sodium Bicarbonate 150 ml/ (Dextrose/Water) 1,150 mls @ 50 mls/hr IV .Q23H [facility] Last Admin: 08/31/20 05:11 Dose: 50 mls/hr Documented by: Insulin Human Regular 100 unit (/ Sodium Chloride) 101 mls @ 0 mls/hr IV .Q0M [facility]; Protocol Last Titration: 08/31/20 21:00 Dose: 27 units/hr, 27.27 mls/hr Documented by: Cefepime HCl 1 gm/ Sodium (Chloride) 50 mls @ 12.5 mls/hr IVPB Q12HR [facility] Last Admin: 08/31/20 20:46 Dose: 12.5 mls/hr Documented by: Fluconazole/Sodium Chloride (100 mg/ IV Solution) 50 mls @ 50 mls/hr IVPB DAILY [facility] Last Admin: 08/31/20 17:29 Dose: 50 mls/hr Documented by: Lorazepam (Lorazepam 2 Mg/Ml Inj) 0.5 mg IV Q4HR PRN PRN Reason: Anxiety Last Admin: 08/25/20 08:13 Dose: 0.5 mg Documented by: Miscellaneous Information (Pneumonia Protocol Utilized 1 Each Misc) 1 each PO ONCE PRN PRN Reason: Per Protocol Zinc Sulfate (Zinc Sulfate 220 Mg Cap) 220 mg PO DAILY [facility] Last Admin: 08/31/20 10:18 Dose: 220 mg Documented by: Objective - Vital Signs Vital signs: Vital Signs Temp 97.5 F L 08/31/20 12:00 Pulse 98 08/31/20 14:00 Resp 34 H 08/31/20 14:00 BP 137/70 08/31/20 14:00 Pulse Ox 93 L 08/31/20 14:00 Intake & Output 08/30/20 08/31/20 08/31/20 18:59 06:59 18:59 Intake Total 2733.391 2149.676 1760.895 Output Total 980 835 415 Balance 9920.663 5421.676 1345.895 Weight 115.8 kg 115.8 kg Intake: IV 1300 1250 825 Cefepime 1 gm In Sodium 50 50 Chloride 0.9% 50 ml @ 12. 5 mls/hr IVPB Q12HR [facility] Rx#:[id number] Cefepime 2 gm In Sodium 100 Chloride 0.9% 100 ml @ 25 mls/hr IVPB Q12HR [facility] Rx #:[id number] Dextrose 5% in Water 1, 600 600 400 000 ml @ 50 mls/hr IV . Q23H [facility] with Sodium Bicarb (1 Meq/ml) 150 ml Rx#:[id number] Sodium Chloride 0.9% 1, 600 600 375 000 ml @ 50 mls/hr IV . Q20H [facility] Rx#:[id number] Intake, IV Titration 719.391 415.676 491.895 Amount Cisatracurium 200 mg In 162.437 200 186.713 Sodium Chloride 0.9% 180 ml @ 1 MCG/KG/MIN 5.994 mls/hr IV .Q24H [facility] Rx#: [id number] Insulin Regular 100 unit 156.954 149.564 205.182 In Sodium Chloride 0.9% 100 ml @ Per Protocol IV .Q0M [facility] Rx#:[id number] propofoL 1,000 mg In 400.000 66.112 100 Empty Bag 1 bag @ Titrate IV .Q0M [facility] Rx#: [id number] Tube Feeding 624 364 384 Other 90 120 60 Output: Chest Tube Drainage 200 30 Chest Tube Right 130 Chest Tube Right Upper 30 Left Upper Anterior Chest 70 Urine 780 835 385 Other: Voiding Method Indwelling Catheter Indwelling Catheter Indwelling Catheter - Exam GENERAL: The patient is intubated and sedated and appears to be in no acute distress. HEENT: Pupils are round and equally reacting to light. EOMI. No scleral icterus. No conjunctival pallor. Normocephalic, atraumatic. No pharyngeal erythema. No thyromegaly. ET tube noted CARDIOVASCULAR: S1 and S2 present. No murmurs, rubs, or gallops. PULMONARY: Bilateral scattered rhonchi, no wheezing noted diminished air entry bilaterally worse on the right, tachypneic, 2 chest tubes noted on the right side and one on the left ABDOMEN: Soft, nontender, nondistended, normoactive bowel sounds. No palpable organomegaly. MUSCULOSKELETAL: No joint swelling or deformity. EXTREMITIES: No cyanosis, clubbing, or pedal edema. NEUROLOGICAL: Unable to fully assess as patient is intubated and sedated SKIN: No rashes. Note: Because of COVID 19 isolation, some of the history and physical exam findings are indirect and obtained from nursing staff, and other physician examinations to avoid unnecessary contact with the patient. - Labs CBC & Chem 7: 08/31/20 04:26 08/31/20 04:26 Labs: Abnormal Lab Results - Last 24 Hours (Table) 08/30/20 08/30/20 08/30/20 Range/Units 09:06 15:07 15:57 WBC (3.8-10.6) k/uL RBC (4.30-5.90) m/uL Hgb (13.0-17.5) gm/dL Hct (39.0-53.0) % Plt Count (150-450) k/uL Neutrophils # (1.3-7.7) k/uL Lymphocytes # (1.0-4.8) k/uL D-Dimer (<0.60) mg/L FEU ABG pH 7.18 L* (7.35-7.45) ABG pCO2 (35-45) mmHg ABG pO2 (83-108) mmHg ABG O2 Saturation (94-97) % Potassium (3.5-5.1) mmol/L Carbon Dioxide (22-30) mmol/L BUN (9-20) mg/dL Creatinine (0.66-1.25) mg/dL Glucose (74-99) mg/dL POC Glucose (mg/dL) 160 H 186 H (75-99) mg/dL Calcium (8.4-10.2) mg/dL Ferritin (22.0-322.0) ng/mL Lactate Dehydrogenase (313-618) U/L CK-MB (CK-2) (0.0-2.4) ng/mL C-Reactive Protein (<10.0) mg/L Total Protein (6.3-8.2) g/dL Albumin (3.5-5.0) g/dL 08/30/20 08/30/20 08/30/20 Range/Units 16:55 17:46 20:48 WBC (3.8-10.6) k/uL RBC (4.30-5.90) m/uL Hgb (13.0-17.5) gm/dL Hct (39.0-53.0) % Plt Count (150-450) k/uL Neutrophils # (1.3-7.7) k/uL Lymphocytes # (1.0-4.8) k/uL D-Dimer (<0.60) mg/L FEU ABG pH (7.35-7.45) ABG pCO2 (35-45) mmHg ABG pO2 (83-108) mmHg ABG O2 Saturation (94-97) % Potassium (3.5-5.1) mmol/L Carbon Dioxide (22-30) mmol/L BUN (9-20) mg/dL Creatinine (0.66-1.25) mg/dL Glucose (74-99) mg/dL POC Glucose (mg/dL) 187 H 191 H 157 H (75-99) mg/dL Calcium (8.4-10.2) mg/dL Ferritin (22.0-322.0) ng/mL Lactate Dehydrogenase (313-618) U/L CK-MB (CK-2) (0.0-2.4) ng/mL C-Reactive Protein (<10.0) mg/L Total Protein (6.3-8.2) g/dL Albumin (3.5-5.0) g/dL 08/30/20 08/30/20 08/31/20 Range/Units 22:01 23:07 00:20 WBC (3.8-10.6) k/uL RBC (4.30-5.90) m/uL Hgb (13.0-17.5) gm/dL Hct (39.0-53.0) % Plt Count (150-450) k/uL Neutrophils # (1.3-7.7) k/uL Lymphocytes # (1.0-4.8) k/uL D-Dimer (<0.60) mg/L FEU ABG pH (7.35-7.45) ABG pCO2 (35-45) mmHg ABG pO2 (83-108) mmHg ABG O2 Saturation (94-97) % Potassium (3.5-5.1) mmol/L Carbon Dioxide (22-30) mmol/L BUN (9-20) mg/dL Creatinine (0.66-1.25) mg/dL Glucose (74-99) mg/dL POC Glucose (mg/dL) 133 H 127 H 151 H (75-99) mg/dL Calcium (8.4-10.2) mg/dL Ferritin (22.0-322.0) ng/mL Lactate Dehydrogenase (313-618) U/L CK-MB (CK-2) (0.0-2.4) ng/mL C-Reactive Protein (<10.0) mg/L Total Protein (6.3-8.2) g/dL Albumin (3.5-5.0) g/dL 08/31/20 08/31/20 08/31/20 Range/Units 01:02 04:01 04:26 WBC 17.6 H (3.8-10.6) k/uL RBC 4.07 L (4.30-5.90) m/uL Hgb 11.9 L (13.0-17.5) gm/dL Hct 35.8 L (39.0-53.0) % Plt Count 146 L (150-450) k/uL Neutrophils # 16.4 H (1.3-7.7) k/uL Lymphocytes # 0.1 L (1.0-4.8) k/uL D-Dimer (<0.60) mg/L FEU ABG pH (7.35-7.45) ABG pCO2 (35-45) mmHg ABG pO2 (83-108) mmHg ABG O2 Saturation (94-97) % Potassium (3.5-5.1) mmol/L Carbon Dioxide (22-30) mmol/L BUN (9-20) mg/dL Creatinine (0.66-1.25) mg/dL Glucose (74-99) mg/dL POC Glucose (mg/dL) 169 H 156 H (75-99) mg/dL Calcium (8.4-10.2) mg/dL Ferritin (22.0-322.0) ng/mL Lactate Dehydrogenase (313-618) U/L CK-MB (CK-2) (0.0-2.4) ng/mL C-Reactive Protein (<10.0) mg/L Total Protein (6.3-8.2) g/dL Albumin (3.5-5.0) g/dL 08/31/20 08/31/20 08/31/20 Range/Units 04:26 04:26 04:26 WBC (3.8-10.6) k/uL RBC (4.30-5.90) m/uL Hgb (13.0-17.5) gm/dL Hct (39.0-53.0) % Plt Count (150-450) k/uL Neutrophils # (1.3-7.7) k/uL Lymphocytes # (1.0-4.8) k/uL D-Dimer 4.25 H (<0.60) mg/L FEU ABG pH (7.35-7.45) ABG pCO2 (35-45) mmHg ABG pO2 (83-108) mmHg ABG O2 Saturation (94-97) % Potassium 5.2 H (3.5-5.1) mmol/L Carbon Dioxide 21 L (22-30) mmol/L BUN 149 H* (9-20) mg/dL Creatinine 6.51 H (0.66-1.25) mg/dL Glucose 131 H (74-99) mg/dL POC Glucose (mg/dL) (75-99) mg/dL Calcium 7.0 L (8.4-10.2) mg/dL Ferritin 1121.1 H (22.0-322.0) ng/mL Lactate Dehydrogenase 1124 H (313-618) U/L CK-MB (CK-2) 7.6 H (0.0-2.4) ng/mL C-Reactive Protein 61.6 H (<10.0) mg/L Total Protein 4.9 L (6.3-8.2) g/dL Albumin 2.2 L (3.5-5.0) g/dL 08/31/20 08/31/20 08/31/20 Range/Units 06:01 06:02 08:51 WBC (3.8-10.6) k/uL RBC (4.30-5.90) m/uL Hgb (13.0-17.5) gm/dL Hct (39.0-53.0) % Plt Count (150-450) k/uL Neutrophils # (1.3-7.7) k/uL Lymphocytes # (1.0-4.8) k/uL D-Dimer (<0.60) mg/L FEU ABG pH 7.18 L* (7.35-7.45) ABG pCO2 58 H (35-45) mmHg ABG pO2 77 L (83-108) mmHg ABG O2 Saturation 90.9 L (94-97) % Potassium (3.5-5.1) mmol/L Carbon Dioxide (22-30) mmol/L BUN (9-20) mg/dL Creatinine (0.66-1.25) mg/dL Glucose (74-99) mg/dL POC Glucose (mg/dL) 112 H 176 H (75-99) mg/dL Calcium (8.4-10.2) mg/dL Ferritin (22.0-322.0) ng/mL Lactate Dehydrogenase (313-618) U/L CK-MB (CK-2) (0.0-2.4) ng/mL C-Reactive Protein (<10.0) mg/L Total Protein (6.3-8.2) g/dL Albumin (3.5-5.0) g/dL 08/31/20 08/31/20 08/31/20 Range/Units 10:07 11:07 12:09 WBC (3.8-10.6) k/uL RBC (4.30-5.90) m/uL Hgb (13.0-17.5) gm/dL Hct (39.0-53.0) % Plt Count (150-450) k/uL Neutrophils # (1.3-7.7) k/uL Lymphocytes # (1.0-4.8) k/uL D-Dimer (<0.60) mg/L FEU ABG pH (7.35-7.45) ABG pCO2 (35-45) mmHg ABG pO2 (83-108) mmHg ABG O2 Saturation (94-97) % Potassium (3.5-5.1) mmol/L Carbon Dioxide (22-30) mmol/L BUN (9-20) mg/dL Creatinine (0.66-1.25) mg/dL Glucose (74-99) mg/dL POC Glucose (mg/dL) 201 H 199 H 210 H (75-99) mg/dL Calcium (8.4-10.2) mg/dL Ferritin (22.0-322.0) ng/mL Lactate Dehydrogenase (313-618) U/L CK-MB (CK-2) (0.0-2.4) ng/mL C-Reactive Protein (<10.0) mg/L Total Protein (6.3-8.2) g/dL Albumin (3.5-5.0) g/dL 08/31/20 08/31/20 Range/Units 13:11 14:04 WBC (3.8-10.6) k/uL RBC (4.30-5.90) m/uL Hgb (13.0-17.5) gm/dL Hct (39.0-53.0) % Plt Count (150-450) k/uL Neutrophils # (1.3-7.7) k/uL Lymphocytes # (1.0-4.8) k/uL D-Dimer (<0.60) mg/L FEU ABG pH (7.35-7.45) ABG pCO2 (35-45) mmHg ABG pO2 (83-108) mmHg ABG O2 Saturation (94-97) % Potassium (3.5-5.1) mmol/L Carbon Dioxide (22-30) mmol/L BUN (9-20) mg/dL Creatinine (0.66-1.25) mg/dL Glucose (74-99) mg/dL POC Glucose (mg/dL) 200 H 193 H (75-99) mg/dL Calcium (8.4-10.2) mg/dL Ferritin (22.0-322.0) ng/mL Lactate Dehydrogenase (313-618) U/L CK-MB (CK-2) (0.0-2.4) ng/mL C-Reactive Protein (<10.0) mg/L Total Protein (6.3-8.2) g/dL Albumin (3.5-5.0) g/dL Assessment and Plan Assessment: -Covid 19 infection/pneumonia -acute renal failure likely acute tubular necrosis -Acute respiratory arrest with hypoxia -Right side pneumothorax , small stable left-sided pneumothorax. -Type 2 diabetes mellitus uncontrolled -mild hypovolemic hyponatremia -Hypertension: -DVT prophylaxis with Lovenox -GI prophylaxis: Pepcid Plan: Continue current medications and continue to monitor closely. Patient currently in the ICU for close monitoring. Currently with 2 chest tubes on the right side with continued air leak and one chest tube on the left side. Patient is currently intubated and sedated. Maintained on IV antibiotics and will continue at this time. Pulmonary and infectious disease also following along with nephrology and vascular surgery. Patient is awaiting to receive catheter placement for hemodialysis. Prognosis is extremely guarded and poor. Will continue to monitor vital signs and labs closely. Further recommendations to follow. Prognosis is poor and extremely guarded as mentioned previously. 2D echo pending as well as a CT of the chest. Discussed with nursing staff about treatment plan and patient is not stable for transport to CT at this time. Will reevaluate tomorrow after dialysis. was updated of plan of care at this time and consent was obtained for hemodialysis.
--- NOTE | 2020-08-31 22:58 | PN ---
PROGRESS NOTE DATE OF SERVICE: 08/31/2020 REASON FOR FOLLOWUP: COVID-19 pneumonia. INTERVAL HISTORY: Patient is currently afebrile. The patient is hemodynamically stable, off the pressor support. FiO2 is currently 90%, 12 of PEEP. No significant purulent secretions in the ET or diarrhea reported by nursing staff. PHYSICAL EXAMINATION: Blood pressure 107/64, pulse of 89, temperature 98. He is 90% on 90% FiO2. General description is a middle-aged male lying in bed in no distress. Respiratory system: Unlabored breathing, decreased breath sounds in the bases. No wheeze. Heart S1, S2. Regular rate and rhythm. ABDOMEN: Soft, no distention. Extremities: No edema of the feet. LABS: Hemoglobin 11, white count 17.6, BUN 49, creatinine 6.51. DIAGNOSTIC IMPRESSION AND PLAN: Patient with acute respiratory failure which is multifactorial in this patient with component of pneumonia. Sputum has been MSSA. Patient is covered with cefepime to continue along with respiratory support. Monitor clinical course closely. MMODL / IJN: [id number] /
[2020-08-31 23:10] LABS: Glucose,Whole Blood 141 mg/dL (75-99)
[2020-09-01 00:17] LABS: Glucose,Whole Blood 152 mg/dL (75-99)
[2020-09-01 01:22] LABS: Glucose,Whole Blood 122 mg/dL (75-99)
--- NOTE | 2020-09-01 03:04 | CT ---
EXAM: CT Chest Without Intravenous Contrast CLINICAL HISTORY: ITS.REASON CT Reason: shortness of breath TECHNIQUE: Axial computed tomography images of the chest without intravenous contrast. CTDI is 22.37 mGy and DLP is 932.20 mGy-cm. This CT exam was performed using one or more of the following dose reduction techniques: automated exposure control, adjustment of the mA and/or kV according to patient size, and/or use of iterative reconstruction technique. COMPARISON: 08/31/2020 FINDINGS: Lungs: No increased groundglass attenuation of the lungs throughout. Right basilar atelectasis. Pleural space: Mild right pneumothorax (less than 20%). Moderate right and mild left pleural effusions. Heart: Normal heart size. No pericardial effusion. Bones/joints: No acute fracture. Soft tissues: Diffuse soft tissue emphysema in the bilateral chest wall with extension into the mediastinum. Vasculature: Unremarkable. No thoracic aortic aneurysm. Lymph nodes: No enlarged lymph nodes. Upper abdomen: Extensive free air in the upper abdomen. ET tube and NG tube are in place. IMPRESSION: 1. Diffuse soft tissue emphysema in the bilateral chest wall with extension into the mediastinum (pneumomediastinum). Free air in the upper abdomen. Recommend CT Abdomen and pelvis. 2. Mild right pneumothorax (less than 20%). 3. Pulmonary edema and pleural effusions. Bibasilar atelectasis. <MYCVCSECTION> Communications: 09/01/20 03:09 Call Nurse LOLLY Lopes on 09/01 03:09 (-05:00)
[2020-09-01 05:18] LABS: Albumin 2.4 g/dL (3.5-5.0); C Reactive Protein 54.2 mg/L (<10.0); Calcium 7.2 mg/dL (8.4-10.2); Potassium 5.5 mmol/L (3.5-5.1); Total Bilirubin 0.4 mg/dL (0.2-1.3); Total Protein 5.2 g/dL (6.3-8.2)
[2020-09-01 05:23] LABS: Basophils # (A) 0.1 k/uL (0-0.2); Basophils % (A) 0 %; Eosinophils # (A) 0.1 k/uL (0-0.7); Eosinophils % (A) 0 %; HCT 37.1 % (39.0-53.0); HGB 11.6 gm/dL (13.0-17.5); Hypochromasia Slight; Lymphocytes # (A) 0.3 k/uL (1.0-4.8); Lymphocytes % (A) 1 %; MCH 27.9 pg (25.0-35.0); MCHC 31.4 g/dL (31.0-37.0); MCV 88.9 fL (80.0-100.0); Mean Platelet Volume 8.1; Monocytes # (A) 0.9 k/uL (0-1.0); Monocytes % (A) 4 %; Neutrophils % (A) 93 %; Platelet Count 188 k/uL (150-450); RBC 4.17 m/uL (4.30-5.90); RDW 14.8 % (11.5-15.5); WBC 22.6 k/uL (3.8-10.6)
[2020-09-01 06:22] LABS: ABG Base Excess -6.1 mmol/L; ABG HCO3 22 mmol/L (21-25); ABG Oxygen Saturation 88.4 % (94-97); ABG PCO2 55 mmHg (35-45); ABG PH 7.21 (7.35-7.45); ABG PO2 68 mmHg (83-108); ABG TCO2 23 mmol/L (19-24); Allen Test Performed? Yes
--- NOTE | 2020-09-01 07:36 | ECHOF ---
Referral Reason:covid MEASUREMENTS -------- HEIGHT: 182.9 cm WEIGHT: 115.7 kg BP: FINDINGS -------- Attempted Echo: Pt postive for Covid-19 on Vent. No images. CONCLUSIONS -------- 1. Attempted Echo: Pt postive for Covid-19 on Vent. No images. DEMI CHEF: Lora Castellanos RDCS
[2020-09-01] MEDS: CEFEPIME 1 GM in SODIUM CHLORIDE 0.9% 50 ML IVPB SCH ×2 (07:55→20:00)
[2020-09-01 08:25] LABS: Glucose,Whole Blood 245 mg/dL (75-99)
[2020-09-01] MEDS: DEXTROSE 5% IN WATER 1,000 ML with SODIUM BICARB (1 MEQ/ML) 150 ML IV SCH ×2 (08:38)
[2020-09-01 08:40] LABS: ABG PH 7.16 (7.35-7.45)
[2020-09-01 08:42] LABS: ABG PH 7.17 (7.35-7.45)
[2020-09-01 09:32] LABS: Glucose,Whole Blood 184 mg/dL (75-99)
[2020-09-01] MEDS: INSULIN REGULAR 100 UNIT in SODIUM CHLORIDE 0.9% 100 ML IV SCH ×3 (09:50)
[2020-09-01] MEDS: FAMOTIDINE 20 MG/2 ML VIAL IV SCH (10:00)
[2020-09-01] MEDS: ENOXAPARIN 60 MG/0.6 ML SYRINGE SQ SCH (10:00)
[2020-09-01] MEDS: ASCORBIC ACID 500 MG TAB PO SCH (10:00)
[2020-09-01] MEDS: FUROSEMIDE 10 MG/ML 10 ML VIAL IV SCH ×2 (10:00→20:00)
[2020-09-01] MEDS: CHLORHEXIDINE GLUCONATE 15 ML CUP MUCOUS MEM SCH ×2 (10:00→20:00)
[2020-09-01] MEDS: DEXAMETHASONE SOD PHOSPHATE 10 MG/ML 1 ML VIAL IV SCH (10:00)
[2020-09-01] MEDS: ZINC SULFATE 220 MG CAP PO SCH (10:01)
[2020-09-01] MEDS: FLUCONAZOLE IN NACL,ISO-OSM 100 MG in SALINE 1 50ML.BAG IVPB SCH (10:01)
[2020-09-01 10:22] LABS: Ferritin 1244.2 ng/mL (22.0-322.0)
[2020-09-01 10:48] LABS: Glucose,Whole Blood 154 mg/dL (75-99)
--- NOTE | 2020-09-01 11:09 | P.PN ---
Subjective Progress Note Date: 09/01/20 Principal diagnosis: Acute kidney injury, elevated creatinine, Covid-19 acute vent dependent respiratory failure The patient remains in the ICU, sedated on mechanical ventilation. He is status post right common femoral vein access placement of temporary dialysis catheter yesterday. He received hemodialysis yesterday without any difficulty, and again is currently receiving hemodialysis without any difficulty, as discussed with patient's nurse and hemodialysis nurse.. Objective - Vital Signs Vital signs: Vital Signs Temp 98.2 F 09/01/20 08:00 Pulse 96 09/01/20 08:00 Resp 34 H 09/01/20 08:00 BP 119/61 09/01/20 08:00 Pulse Ox 90 L 09/01/20 08:00 Intake & Output 08/31/20 09/01/20 09/01/20 18:59 06:59 18:59 Intake Total 2433.688 1531.025 271 Output Total 545 3165 95 Balance 1888.688 -1633.975 176 Weight 115.8 kg 120.4 kg Intake: IV 1075 730 110 Cefepime 1 gm In Sodium 50 50 50 Chloride 0.9% 50 ml @ 12. 5 mls/hr IVPB Q12HR [facility] Rx#:[id number] Dextrose 5% in Water 1, 600 600 50 000 ml @ 50 mls/hr IV . Q23H [facility] with Sodium Bicarb (1 Meq/ml) 150 ml Rx#:[id number] Fluconazole in NaCl,Iso- 50 Osm 100 mg In Saline 1 50ml.bag @ 50 mls/hr IVPB DAILY [facility] Rx#:[id number] Sodium Chloride 0.9% 1, 375 000 ml @ 50 mls/hr IV . Q20H [facility] Rx#:[id number] sodium chloride @ 10ml hr 80 10 Intake, IV Titration 668.688 121.025 101 Amount Cisatracurium 200 mg In 186.713 Sodium Chloride 0.9% 180 ml @ 1 MCG/KG/MIN 5.994 mls/hr IV .Q24H [facility] Rx#: [id number] Insulin Regular 100 unit 281.975 21.025 101 In Sodium Chloride 0.9% 100 ml @ Per Protocol IV .Q0M [facility] Rx#:[id number] propofoL 1,000 mg In 200 100 Empty Bag 1 bag @ Titrate IV .Q0M [facility] Rx#: [id number] Oral 500 Tube Feeding 600 90 30 Other 90 90 30 Output: Chest Tube Drainage 30 70 Chest Tube Right Upper 30 Left Upper Anterior Chest 70 Urine 515 165 25 Hemodialysis 1500 Other 1500 Other: Voiding Method Indwelling Catheter Indwelling Catheter Indwelling Catheter - Exam General appearance: Sedated and on mechanical ventilation HET: Head is normocephalic and atraumatic. Neurological: Sedated and vented. Exam deferred to primary care team due to active Covid-19 infection. - Labs CBC & Chem 7: 09/01/20 04:32 09/01/20 04:32 Labs: Abnormal Lab Results - Last 24 Hours (Table) 08/28/20 08/29/20 08/30/20 Range/Units 07:16 11:21 09:06 WBC (3.8-10.6) k/uL RBC (4.30-5.90) m/uL Hgb (13.0-17.5) gm/dL Hct (39.0-53.0) % Neutrophils # (1.3-7.7) k/uL Lymphocytes # (1.0-4.8) k/uL ABG pH 7.16 L* 7.17 L* 7.18 L* (7.35-7.45) ABG pCO2 (35-45) mmHg ABG pO2 (83-108) mmHg ABG O2 Saturation (94-97) % Sodium (137-145) mmol/L Potassium (3.5-5.1) mmol/L BUN (9-20) mg/dL Creatinine (0.66-1.25) mg/dL Glucose (74-99) mg/dL POC Glucose (mg/dL) (75-99) mg/dL Calcium (8.4-10.2) mg/dL Ferritin (22.0-322.0) ng/mL Lactate Dehydrogenase (313-618) U/L Creatine Kinase (55-170) U/L C-Reactive Protein (<10.0) mg/L Total Protein (6.3-8.2) g/dL Albumin (3.5-5.0) g/dL 08/31/20 08/31/20 08/31/20 Range/Units 11:07 12:09 13:11 WBC (3.8-10.6) k/uL RBC (4.30-5.90) m/uL Hgb (13.0-17.5) gm/dL Hct (39.0-53.0) % Neutrophils # (1.3-7.7) k/uL Lymphocytes # (1.0-4.8) k/uL ABG pH (7.35-7.45) ABG pCO2 (35-45) mmHg ABG pO2 (83-108) mmHg ABG O2 Saturation (94-97) % Sodium (137-145) mmol/L Potassium (3.5-5.1) mmol/L BUN (9-20) mg/dL Creatinine (0.66-1.25) mg/dL Glucose (74-99) mg/dL POC Glucose (mg/dL) 199 H 210 H 200 H (75-99) mg/dL Calcium (8.4-10.2) mg/dL Ferritin (22.0-322.0) ng/mL Lactate Dehydrogenase (313-618) U/L Creatine Kinase (55-170) U/L C-Reactive Protein (<10.0) mg/L Total Protein (6.3-8.2) g/dL Albumin (3.5-5.0) g/dL 08/31/20 08/31/20 08/31/20 Range/Units 14:04 15:01 16:21 WBC (3.8-10.6) k/uL RBC (4.30-5.90) m/uL Hgb (13.0-17.5) gm/dL Hct (39.0-53.0) % Neutrophils # (1.3-7.7) k/uL Lymphocytes # (1.0-4.8) k/uL ABG pH (7.35-7.45) ABG pCO2 (35-45) mmHg ABG pO2 (83-108) mmHg ABG O2 Saturation (94-97) % Sodium (137-145) mmol/L Potassium (3.5-5.1) mmol/L BUN (9-20) mg/dL Creatinine (0.66-1.25) mg/dL Glucose (74-99) mg/dL POC Glucose (mg/dL) 193 H 200 H 175 H (75-99) mg/dL Calcium (8.4-10.2) mg/dL Ferritin (22.0-322.0) ng/mL Lactate Dehydrogenase (313-618) U/L Creatine Kinase (55-170) U/L C-Reactive Protein (<10.0) mg/L Total Protein (6.3-8.2) g/dL Albumin (3.5-5.0) g/dL 08/31/20 08/31/20 08/31/20 Range/Units 17:48 19:18 21:00 WBC (3.8-10.6) k/uL RBC (4.30-5.90) m/uL Hgb (13.0-17.5) gm/dL Hct (39.0-53.0) % Neutrophils # (1.3-7.7) k/uL Lymphocytes # (1.0-4.8) k/uL ABG pH (7.35-7.45) ABG pCO2 (35-45) mmHg ABG pO2 (83-108) mmHg ABG O2 Saturation (94-97) % Sodium (137-145) mmol/L Potassium (3.5-5.1) mmol/L BUN (9-20) mg/dL Creatinine (0.66-1.25) mg/dL Glucose (74-99) mg/dL POC Glucose (mg/dL) 137 H 128 H 189 H (75-99) mg/dL Calcium (8.4-10.2) mg/dL Ferritin (22.0-322.0) ng/mL Lactate Dehydrogenase (313-618) U/L Creatine Kinase (55-170) U/L C-Reactive Protein (<10.0) mg/L Total Protein (6.3-8.2) g/dL Albumin (3.5-5.0) g/dL 08/31/20 08/31/20 09/01/20 Range/Units 22:20 23:08 00:16 WBC (3.8-10.6) k/uL RBC (4.30-5.90) m/uL Hgb (13.0-17.5) gm/dL Hct (39.0-53.0) % Neutrophils # (1.3-7.7) k/uL Lymphocytes # (1.0-4.8) k/uL ABG pH (7.35-7.45) ABG pCO2 (35-45) mmHg ABG pO2 (83-108) mmHg ABG O2 Saturation (94-97) % Sodium (137-145) mmol/L Potassium (3.5-5.1) mmol/L BUN (9-20) mg/dL Creatinine (0.66-1.25) mg/dL Glucose (74-99) mg/dL POC Glucose (mg/dL) 169 H 141 H 152 H (75-99) mg/dL Calcium (8.4-10.2) mg/dL Ferritin (22.0-322.0) ng/mL Lactate Dehydrogenase (313-618) U/L Creatine Kinase (55-170) U/L C-Reactive Protein (<10.0) mg/L Total Protein (6.3-8.2) g/dL Albumin (3.5-5.0) g/dL 09/01/20 09/01/20 09/01/20 Range/Units 01:21 04:32 04:32 WBC 22.6 H (3.8-10.6) k/uL RBC 4.17 L (4.30-5.90) m/uL Hgb 11.6 L (13.0-17.5) gm/dL Hct 37.1 L (39.0-53.0) % Neutrophils # 21.0 H (1.3-7.7) k/uL Lymphocytes # 0.3 L (1.0-4.8) k/uL ABG pH (7.35-7.45) ABG pCO2 (35-45) mmHg ABG pO2 (83-108) mmHg ABG O2 Saturation (94-97) % Sodium 135 L (137-145) mmol/L Potassium 5.5 H (3.5-5.1) mmol/L BUN 133 H* (9-20) mg/dL Creatinine 6.15 H (0.66-1.25) mg/dL Glucose 144 H (74-99) mg/dL POC Glucose (mg/dL) 122 H (75-99) mg/dL Calcium 7.2 L (8.4-10.2) mg/dL Ferritin 1244.2 H (22.0-322.0) ng/mL Lactate Dehydrogenase 1208 H (313-618) U/L Creatine Kinase 243 H (55-170) U/L C-Reactive Protein 54.2 H (<10.0) mg/L Total Protein 5.2 L (6.3-8.2) g/dL Albumin 2.4 L (3.5-5.0) g/dL 09/01/20 09/01/20 09/01/20 Range/Units 06:17 08:23 09:31 WBC (3.8-10.6) k/uL RBC (4.30-5.90) m/uL Hgb (13.0-17.5) gm/dL Hct (39.0-53.0) % Neutrophils # (1.3-7.7) k/uL Lymphocytes # (1.0-4.8) k/uL ABG pH 7.21 L (7.35-7.45) ABG pCO2 55 H (35-45) mmHg ABG pO2 68 L (83-108) mmHg ABG O2 Saturation 88.4 L (94-97) % Sodium (137-145) mmol/L Potassium (3.5-5.1) mmol/L BUN (9-20) mg/dL Creatinine (0.66-1.25) mg/dL Glucose (74-99) mg/dL POC Glucose (mg/dL) 245 H 184 H (75-99) mg/dL Calcium (8.4-10.2) mg/dL Ferritin (22.0-322.0) ng/mL Lactate Dehydrogenase (313-618) U/L Creatine Kinase (55-170) U/L C-Reactive Protein (<10.0) mg/L Total Protein (6.3-8.2) g/dL Albumin (3.5-5.0) g/dL Microbiology - Last 24 Hours (Table) 08/31/20 18:35 Urine Culture - Preliminary Urine,Catheterized Assessment and Plan Assessment: 1. Acute kidney injury secondary to ATN with worsening renal function status post temporary dialysis catheter placement 2. Hyperkalemia secondary to acute kidney injury and lisinopril 3. Acute hypoxic and hypercapnic respiratory failure 4. Covid-19 pneumonia 5. Diabetes mellitus 6. Hypertension Plan: Temporary dialysis catheter working well. Continue Hemodialysis as ordered per nephrology. Thank you for this consultation, we will sign off at this time. The impression and plan of care has been dictated as directed. Dr. Triana I performed a history and examination of this patient, discussed the same with the dictator. I agree with the dictator's note ,documented as a scribe. Any additional findings or plans will be noted.
[2020-09-01 11:18] LABS: Hepatitis B Surface AB- Quant 3.5 mIU/mL; Hepatitis B Surface Antibody Non-Reactive (Non-Reactive); Hepatitis B Surface Antigen Non-Reactive (Non-Reactive)
[2020-09-01 12:11] LABS: Glucose,Whole Blood 133 mg/dL (75-99)
[2020-09-01] MEDS: SODIUM CHLORIDE 0.9% 1,000 ML IV SCH (12:23)
[2020-09-01] MEDS: IOPAMIDOL CONTRAST (ORAL USE) VIAL PO PRN ×2 (12:26→13:58)
--- NOTE | 2020-09-01 12:28 | P.PN ---
Subjective Patient is seen in follow-up for acute kidney injury. Creatinine peaked at 6.5 one as of August 31. He was started on hemodialysis for low urine output and volume overload. Urine output 5-15 mL an hour despite IV Lasix. Currently on 100% FiO2. Intubated. Tolerated 1.5 L ultrafiltration yesterday. Tolerating dialysis well now. Vital signs are stable. Intubated. Regular rhythm noted on the monitor. Exam discussed in detail with the nurse. Objective - Vital Signs Vital signs: Vital Signs Temp 98.2 F 09/01/20 08:00 Pulse 98 09/01/20 11:00 Resp 34 H 09/01/20 11:00 BP 92/53 09/01/20 11:00 Pulse Ox 92 L 09/01/20 11:00 Intake & Output 08/31/20 09/01/20 09/01/20 18:59 06:59 18:59 Intake Total 2433.688 1531.025 561.667 Output Total 545 3165 100 Balance 1888.688 -1633.975 461.667 Weight 115.8 kg 120.4 kg 120.4 kg Intake: IV 1075 730 340 Cefepime 1 gm In Sodium 50 50 50 Chloride 0.9% 50 ml @ 12. 5 mls/hr IVPB Q12HR [facility] Rx#:[id number] Dextrose 5% in Water 1, 600 600 200 000 ml @ 50 mls/hr IV . Q23H [facility] with Sodium Bicarb (1 Meq/ml) 150 ml Rx#:[id number] Fluconazole in NaCl,Iso- 50 50 Osm 100 mg In Saline 1 50ml.bag @ 50 mls/hr IVPB DAILY [facility] Rx#:[id number] Sodium Chloride 0.9% 1, 375 000 ml @ 50 mls/hr IV . Q20H [facility] Rx#:[id number] sodium chloride @ 10ml hr 80 40 Intake, IV Titration 668.688 121.025 161.667 Amount Cisatracurium 200 mg In 186.713 Sodium Chloride 0.9% 180 ml @ 1 MCG/KG/MIN 5.994 mls/hr IV .Q24H [facility] Rx#: [id number] Insulin Regular 100 unit 281.975 21.025 161.667 In Sodium Chloride 0.9% 100 ml @ Per Protocol IV .Q0M [facility] Rx#:[id number] propofoL 1,000 mg In 200 100 Empty Bag 1 bag @ Titrate IV .Q0M [facility] Rx#: [id number] Oral 500 Tube Feeding 600 90 30 Other 90 90 30 Output: Chest Tube Drainage 30 70 Chest Tube Right Upper 30 Left Upper Anterior Chest 70 Urine 515 165 30 Hemodialysis 1500 Other 1500 Other: Voiding Method Indwelling Catheter Indwelling Catheter Indwelling Catheter - Labs CBC & Chem 7: 09/01/20 04:32 09/01/20 04:32 Labs: Abnormal Lab Results - Last 24 Hours (Table) 08/28/20 08/29/20 08/31/20 Range/Units 07:16 11:21 13:11 WBC (3.8-10.6) k/uL RBC (4.30-5.90) m/uL Hgb (13.0-17.5) gm/dL Hct (39.0-53.0) % Neutrophils # (1.3-7.7) k/uL Lymphocytes # (1.0-4.8) k/uL ABG pH 7.16 L* 7.17 L* (7.35-7.45) ABG pCO2 (35-45) mmHg ABG pO2 (83-108) mmHg ABG O2 Saturation (94-97) % Sodium (137-145) mmol/L Potassium (3.5-5.1) mmol/L BUN (9-20) mg/dL Creatinine (0.66-1.25) mg/dL Glucose (74-99) mg/dL POC Glucose (mg/dL) 200 H (75-99) mg/dL Calcium (8.4-10.2) mg/dL Ferritin (22.0-322.0) ng/mL Lactate Dehydrogenase (313-618) U/L Creatine Kinase (55-170) U/L C-Reactive Protein (<10.0) mg/L Total Protein (6.3-8.2) g/dL Albumin (3.5-5.0) g/dL 08/31/20 08/31/20 08/31/20 Range/Units 14:04 15:01 16:21 WBC (3.8-10.6) k/uL RBC (4.30-5.90) m/uL Hgb (13.0-17.5) gm/dL Hct (39.0-53.0) % Neutrophils # (1.3-7.7) k/uL Lymphocytes # (1.0-4.8) k/uL ABG pH (7.35-7.45) ABG pCO2 (35-45) mmHg ABG pO2 (83-108) mmHg ABG O2 Saturation (94-97) % Sodium (137-145) mmol/L Potassium (3.5-5.1) mmol/L BUN (9-20) mg/dL Creatinine (0.66-1.25) mg/dL Glucose (74-99) mg/dL POC Glucose (mg/dL) 193 H 200 H 175 H (75-99) mg/dL Calcium (8.4-10.2) mg/dL Ferritin (22.0-322.0) ng/mL Lactate Dehydrogenase (313-618) U/L Creatine Kinase (55-170) U/L C-Reactive Protein (<10.0) mg/L Total Protein (6.3-8.2) g/dL Albumin (3.5-5.0) g/dL 08/31/20 08/31/20 08/31/20 Range/Units 17:48 19:18 21:00 WBC (3.8-10.6) k/uL RBC (4.30-5.90) m/uL Hgb (13.0-17.5) gm/dL Hct (39.0-53.0) % Neutrophils # (1.3-7.7) k/uL Lymphocytes # (1.0-4.8) k/uL ABG pH (7.35-7.45) ABG pCO2 (35-45) mmHg ABG pO2 (83-108) mmHg ABG O2 Saturation (94-97) % Sodium (137-145) mmol/L Potassium (3.5-5.1) mmol/L BUN (9-20) mg/dL Creatinine (0.66-1.25) mg/dL Glucose (74-99) mg/dL POC Glucose (mg/dL) 137 H 128 H 189 H (75-99) mg/dL Calcium (8.4-10.2) mg/dL Ferritin (22.0-322.0) ng/mL Lactate Dehydrogenase (313-618) U/L Creatine Kinase (55-170) U/L C-Reactive Protein (<10.0) mg/L Total Protein (6.3-8.2) g/dL Albumin (3.5-5.0) g/dL 08/31/20 08/31/20 09/01/20 Range/Units 22:20 23:08 00:16 WBC (3.8-10.6) k/uL RBC (4.30-5.90) m/uL Hgb (13.0-17.5) gm/dL Hct (39.0-53.0) % Neutrophils # (1.3-7.7) k/uL Lymphocytes # (1.0-4.8) k/uL ABG pH (7.35-7.45) ABG pCO2 (35-45) mmHg ABG pO2 (83-108) mmHg ABG O2 Saturation (94-97) % Sodium (137-145) mmol/L Potassium (3.5-5.1) mmol/L BUN (9-20) mg/dL Creatinine (0.66-1.25) mg/dL Glucose (74-99) mg/dL POC Glucose (mg/dL) 169 H 141 H 152 H (75-99) mg/dL Calcium (8.4-10.2) mg/dL Ferritin (22.0-322.0) ng/mL Lactate Dehydrogenase (313-618) U/L Creatine Kinase (55-170) U/L C-Reactive Protein (<10.0) mg/L Total Protein (6.3-8.2) g/dL Albumin (3.5-5.0) g/dL 09/01/20 09/01/20 09/01/20 Range/Units 01:21 04:32 04:32 WBC 22.6 H (3.8-10.6) k/uL RBC 4.17 L (4.30-5.90) m/uL Hgb 11.6 L (13.0-17.5) gm/dL Hct 37.1 L (39.0-53.0) % Neutrophils # 21.0 H (1.3-7.7) k/uL Lymphocytes # 0.3 L (1.0-4.8) k/uL ABG pH (7.35-7.45) ABG pCO2 (35-45) mmHg ABG pO2 (83-108) mmHg ABG O2 Saturation (94-97) % Sodium 135 L (137-145) mmol/L Potassium 5.5 H (3.5-5.1) mmol/L BUN 133 H* (9-20) mg/dL Creatinine 6.15 H (0.66-1.25) mg/dL Glucose 144 H (74-99) mg/dL POC Glucose (mg/dL) 122 H (75-99) mg/dL Calcium 7.2 L (8.4-10.2) mg/dL Ferritin 1244.2 H (22.0-322.0) ng/mL Lactate Dehydrogenase 1208 H (313-618) U/L Creatine Kinase 243 H (55-170) U/L C-Reactive Protein 54.2 H (<10.0) mg/L Total Protein 5.2 L (6.3-8.2) g/dL Albumin 2.4 L (3.5-5.0) g/dL 09/01/20 09/01/20 09/01/20 Range/Units 06:17 08:23 09:31 WBC (3.8-10.6) k/uL RBC (4.30-5.90) m/uL Hgb (13.0-17.5) gm/dL Hct (39.0-53.0) % Neutrophils # (1.3-7.7) k/uL Lymphocytes # (1.0-4.8) k/uL ABG pH 7.21 L (7.35-7.45) ABG pCO2 55 H (35-45) mmHg ABG pO2 68 L (83-108) mmHg ABG O2 Saturation 88.4 L (94-97) % Sodium (137-145) mmol/L Potassium (3.5-5.1) mmol/L BUN (9-20) mg/dL Creatinine (0.66-1.25) mg/dL Glucose (74-99) mg/dL POC Glucose (mg/dL) 245 H 184 H (75-99) mg/dL Calcium (8.4-10.2) mg/dL Ferritin (22.0-322.0) ng/mL Lactate Dehydrogenase (313-618) U/L Creatine Kinase (55-170) U/L C-Reactive Protein (<10.0) mg/L Total Protein (6.3-8.2) g/dL Albumin (3.5-5.0) g/dL 09/01/20 09/01/20 Range/Units 10:47 12:10 WBC (3.8-10.6) k/uL RBC (4.30-5.90) m/uL Hgb (13.0-17.5) gm/dL Hct (39.0-53.0) % Neutrophils # (1.3-7.7) k/uL Lymphocytes # (1.0-4.8) k/uL ABG pH (7.35-7.45) ABG pCO2 (35-45) mmHg ABG pO2 (83-108) mmHg ABG O2 Saturation (94-97) % Sodium (137-145) mmol/L Potassium (3.5-5.1) mmol/L BUN (9-20) mg/dL Creatinine (0.66-1.25) mg/dL Glucose (74-99) mg/dL POC Glucose (mg/dL) 154 H 133 H (75-99) mg/dL Calcium (8.4-10.2) mg/dL Ferritin (22.0-322.0) ng/mL Lactate Dehydrogenase (313-618) U/L Creatine Kinase (55-170) U/L C-Reactive Protein (<10.0) mg/L Total Protein (6.3-8.2) g/dL Albumin (3.5-5.0) g/dL Microbiology - Last 24 Hours (Table) 09/01/20 06:24 Sputum Culture - Preliminary Sputum 08/31/20 18:35 Urine Culture - Preliminary Urine,Catheterized Assessment and Plan Plan: Assessment: 1. Acute kidney injury secondary to ATN secondary to vancomycin toxicity. Renal function worsening. Creatinine peaked at 6.51 as of August 31. Started on hemodialysis for low urine output and volume overload. Oliguric. 2. Hyperkalemia secondary to acute kidney injury and lisinopril. 3. Acute hypoxic and hypercapnic respiratory failure. 4. Coated 19 pneumonia maintained on steroids and zinc now. 5. Respiratory and metabolic acidosis. Expect improvement of metabolic acidosis post dialysis. 6. Pneumothorax status post bilateral chest tube placement. 7. Free air noted on chest x-ray. Schedule for CAT scan today. Plan: Currently seen while undergoing hemodialysis. Continue to assess daily for need for renal replacement therapy. Hep-Lock IV fluids. Maintain IV Lasix. Wean FiO2. Scheduled for CAT scan of the abdomen and pelvis today Tube feeds to be resumed pending CAT scan results. Overall prognosis guarded.
[2020-09-01 13:27] LABS: Glucose,Whole Blood 106 mg/dL (75-99)
--- NOTE | 2020-09-01 13:48 | P.GSCN ---
History of Present Illness Consult date: 09/01/20 History of present illness: CHIEF COMPLAINT: Free air noted on CT of chest HISTORY OF PRESENT ILLNESS: This is a 59-year-old male who is admitted to the hospital for Covid 19 pneumonitis and sepsis. Patient continues decline with antibiotic treatment. He developed bilateral spontaneous pneumothorax with pneumomediastinum and subcutaneous emphysema. He had chest tubes placed. And did require to be intubated. He is currently in the ICU intubated and sedated. He developed acute kidney injury during this admission and did require to be started on hemodialysis. Temporary dialysis catheter was placed yesterday. Patient had a computed tomography scan of the chest showing diffuse soft tissue emphysema and bilateral chest wall with extension into the mediastinum. Free air in the upper abdomen. Recommend CT abdomen and pelvis. Mild right pneumothorax less than 20%. Pulmonary edema pleural effusions. Bilateral atelectasis. Surgery consulted regarding free air in the upper abdomen that was noted on computed tomography scan of the chest. Tube feedings are currently on hold. Patient has been having bowel movements. PAST MEDICAL HISTORY: See list. PAST SURGICAL HISTORY: See list. MEDICATIONS: See list. ALLERGIES: See list. SOCIAL HISTORY: No illicit drug use. REVIEW OF SYSTEMS: Unable to obtain. Patient is intubated and sedated PHYSICAL EXAM: VITAL SIGNS: Reviewed GENERAL: Well-developed in no acute distress. HEENT: No sclera icterus. Extraocular movements grossly intact. Moist buccal mucosa. Head is atraumatic, normocephalic. No nasal drainage. ABDOMEN: Soft. Nondistended. Nontender NEUROLOGIC: Alert and oriented. Cranial nerves II through XII grossly intact. LABORATORY DATA: WBC 22.6 hemoglobin 11.6 potassium 5.5 IMAGING: computed tomography scan of the chest showing diffuse soft tissue emphysema and bilateral chest wall with extension into the mediastinum. Free air in the upper abdomen. Recommend CT abdomen and pelvis. Mild right pneumothorax less than 20%. Pulmonary edema pleural effusions. Bilateral atelectasis. ASSESSMENT: 1. Free air in the upper abdomen noted on CT of the chest. This is likely related to patient's pneumothorax 2. Covid 19 infection 3. Bilateral pneumothoraces status post bilateral chest tube placement 4. Acute kidney injury secondary to ATN and vancomycin toxicity. Patient has been started on hemodialysis 5. Acute hypoxic and hypercapnic respiratory failure PLAN: -We'll check computed tomography scan of the abdomen and pelvis for further evaluation of free air -Tube feedings currently on hold -Continue supportive care Thank you for this consultation Physician Core Stacker note has been reviewed by physician. Signing provider agrees with the documented findings, assessment, and plan of care. Past Medical History Past Medical History: Diabetes Mellitus, Hypertension History of Any Multi-Drug Resistant Organisms: None Reported Past Surgical History: Appendectomy Past Psychological History: No Psychological Hx Reported Smoking Status: Never smoker Past Alcohol Use History: None Reported Past Drug Use History: None Reported Medications and Allergies Home Medications Medication Instructions Recorded Confirmed Type Acetaminophen Tab [Tylenol] 1,000 mg PO Q4-6H PRN 08/14/20 08/14/20 History Aspirin EC [Ecotrin Low Dose] 81 mg PO HS 08/14/20 08/14/20 History Insulin Aspart [NovoLOG] See Protocol SQ TID-W/MEALS 08/14/20 08/14/20 History Lisinopril-Hctz 10-12.5 mg 1 tab PO DAILY 08/14/20 08/14/20 History [Zestoretic 10-12.5] metFORMIN HCL 1,000 mg PO BID-W/MEALS 08/14/20 08/14/20 History Allergies Allergy/AdvReac Type Severity Reaction Status Date / Time No Known Allergies Allergy Verified 08/14/20 18:01 Surgical - Exam Vital Signs Temp Pulse Resp BP Pulse Ox 101.7 F H 101 H 18 122/69 93 L 08/14/20 14:32 08/14/20 14:32 08/14/20 14:32 08/14/20 14:32 08/14/20 14:32 Results - Labs 09/01/20 04:32 09/01/20 04:32 Abnormal Lab Results - Last 24 Hours (Table) 08/28/20 08/29/20 08/31/20 Range/Units 07:16 11: 14:04 WBC (3.8-10.6) k/uL RBC (4.30-5.90) m/uL Hgb (13.0-17.5) gm/dL Hct (39.0-53.0) % Neutrophils # (1.3-7.7) k/uL Lymphocytes # (1.0-4.8) k/uL ABG pH 7.16 L* 7.17 L* (7.35-7.45) ABG pCO2 (35-45) mmHg ABG pO2 (83-108) mmHg ABG O2 Saturation (94-97) % Sodium (137-145) mmol/L Potassium (3.5-5.1) mmol/L BUN (9-20) mg/dL Creatinine (0.66-1.25) mg/dL Glucose (74-99) mg/dL POC Glucose (mg/dL) 193 H (75-99) mg/dL Calcium (8.4-10.2) mg/dL Ferritin (22.0-322.0) ng/mL Lactate Dehydrogenase (313-618) U/L Creatine Kinase (55-170) U/L C-Reactive Protein (<10.0) mg/L Total Protein (6.3-8.2) g/dL Albumin (3.5-5.0) g/dL 08/31/20 08/31/20 08/31/20 Range/Units 15:01 16:21 17:48 WBC (3.8-10.6) k/uL RBC (4.30-5.90) m/uL Hgb (13.0-17.5) gm/dL Hct (39.0-53.0) % Neutrophils # (1.3-7.7) k/uL Lymphocytes # (1.0-4.8) k/uL ABG pH (7.35-7.45) ABG pCO2 (35-45) mmHg ABG pO2 (83-108) mmHg ABG O2 Saturation (94-97) % Sodium (137-145) mmol/L Potassium (3.5-5.1) mmol/L BUN (9-20) mg/dL Creatinine (0.66-1.25) mg/dL Glucose (74-99) mg/dL POC Glucose (mg/dL) 200 H 175 H 137 H (75-99) mg/dL Calcium (8.4-10.2) mg/dL Ferritin (22.0-322.0) ng/mL Lactate Dehydrogenase (313-618) U/L Creatine Kinase (55-170) U/L C-Reactive Protein (<10.0) mg/L Total Protein (6.3-8.2) g/dL Albumin (3.5-5.0) g/dL 08/31/20 08/31/20 08/31/20 Range/Units 19:18 21:00 22:20 WBC (3.8-10.6) k/uL RBC (4.30-5.90) m/uL Hgb (13.0-17.5) gm/dL Hct (39.0-53.0) % Neutrophils # (1.3-7.7) k/uL Lymphocytes # (1.0-4.8) k/uL ABG pH (7.35-7.45) ABG pCO2 (35-45) mmHg ABG pO2 (83-108) mmHg ABG O2 Saturation (94-97) % Sodium (137-145) mmol/L Potassium (3.5-5.1) mmol/L BUN (9-20) mg/dL Creatinine (0.66-1.25) mg/dL Glucose (74-99) mg/dL POC Glucose (mg/dL) 128 H 189 H 169 H (75-99) mg/dL Calcium (8.4-10.2) mg/dL Ferritin (22.0-322.0) ng/mL Lactate Dehydrogenase (313-618) U/L Creatine Kinase (55-170) U/L C-Reactive Protein (<10.0) mg/L Total Protein (6.3-8.2) g/dL Albumin (3.5-5.0) g/dL 08/31/20 09/01/20 09/01/20 Range/Units 23:08 00:16 01:21 WBC (3.8-10.6) k/uL RBC (4.30-5.90) m/uL Hgb (13.0-17.5) gm/dL Hct (39.0-53.0) % Neutrophils # (1.3-7.7) k/uL Lymphocytes # (1.0-4.8) k/uL ABG pH (7.35-7.45) ABG pCO2 (35-45) mmHg ABG pO2 (83-108) mmHg ABG O2 Saturation (94-97) % Sodium (137-145) mmol/L Potassium (3.5-5.1) mmol/L BUN (9-20) mg/dL Creatinine (0.66-1.25) mg/dL Glucose (74-99) mg/dL POC Glucose (mg/dL) 141 H 152 H 122 H (75-99) mg/dL Calcium (8.4-10.2) mg/dL Ferritin (22.0-322.0) ng/mL Lactate Dehydrogenase (313-618) U/L Creatine Kinase (55-170) U/L C-Reactive Protein (<10.0) mg/L Total Protein (6.3-8.2) g/dL Albumin (3.5-5.0) g/dL 09/01/20 09/01/20 09/01/20 Range/Units 04:32 04:32 06:17 WBC 22.6 H (3.8-10.6) k/uL RBC 4.17 L (4.30-5.90) m/uL Hgb 11.6 L (13.0-17.5) gm/dL Hct 37.1 L (39.0-53.0) % Neutrophils # 21.0 H (1.3-7.7) k/uL Lymphocytes # 0.3 L (1.0-4.8) k/uL ABG pH 7.21 L (7.35-7.45) ABG pCO2 55 H (35-45) mmHg ABG pO2 68 L (83-108) mmHg ABG O2 Saturation 88.4 L (94-97) % Sodium 135 L (137-145) mmol/L Potassium 5.5 H (3.5-5.1) mmol/L BUN 133 H* (9-20) mg/dL Creatinine 6.15 H (0.66-1.25) mg/dL Glucose 144 H (74-99) mg/dL POC Glucose (mg/dL) (75-99) mg/dL Calcium 7.2 L (8.4-10.2) mg/dL Ferritin 1244.2 H (22.0-322.0) ng/mL Lactate Dehydrogenase 1208 H (313-618) U/L Creatine Kinase 243 H (55-170) U/L C-Reactive Protein 54.2 H (<10.0) mg/L Total Protein 5.2 L (6.3-8.2) g/dL Albumin 2.4 L (3.5-5.0) g/dL 09/01/20 09/01/20 09/01/20 Range/Units 08:23 09:31 10:47 WBC (3.8-10.6) k/uL RBC (4.30-5.90) m/uL Hgb (13.0-17.5) gm/dL Hct (39.0-53.0) % Neutrophils # (1.3-7.7) k/uL Lymphocytes # (1.0-4.8) k/uL ABG pH (7.35-7.45) ABG pCO2 (35-45) mmHg ABG pO2 (83-108) mmHg ABG O2 Saturation (94-97) % Sodium (137-145) mmol/L Potassium (3.5-5.1) mmol/L BUN (9-20) mg/dL Creatinine (0.66-1.25) mg/dL Glucose (74-99) mg/dL POC Glucose (mg/dL) 245 H 184 H 154 H (75-99) mg/dL Calcium (8.4-10.2) mg/dL Ferritin (22.0-322.0) ng/mL Lactate Dehydrogenase (313-618) U/L Creatine Kinase (55-170) U/L C-Reactive Protein (<10.0) mg/L Total Protein (6.3-8.2) g/dL Albumin (3.5-5.0) g/dL 09/01/20 09/01/20 Range/Units 12:10 13:26 WBC (3.8-10.6) k/uL RBC (4.30-5.90) m/uL Hgb (13.0-17.5) gm/dL Hct (39.0-53.0) % Neutrophils # (1.3-7.7) k/uL Lymphocytes # (1.0-4.8) k/uL ABG pH (7.35-7.45) ABG pCO2 (35-45) mmHg ABG pO2 (83-108) mmHg ABG O2 Saturation (94-97) % Sodium (137-145) mmol/L Potassium (3.5-5.1) mmol/L BUN (9-20) mg/dL Creatinine (0.66-1.25) mg/dL Glucose (74-99) mg/dL POC Glucose (mg/dL) 133 H 106 H (75-99) mg/dL Calcium (8.4-10.2) mg/dL Ferritin (22.0-322.0) ng/mL Lactate Dehydrogenase (313-618) U/L Creatine Kinase (55-170) U/L C-Reactive Protein (<10.0) mg/L Total Protein (6.3-8.2) g/dL Albumin (3.5-5.0) g/dL Microbiology - Last 24 Hours (Table) 09/01/20 06:24 Gram Stain - Preliminary Sputum Sputum Culture - Preliminary 08/31/20 18:35 Urine Culture - Preliminary Urine,Catheterized Diabetes panel 09/01/20 Range/Units 04:32 Sodium 135 L (137-145) mmol/L Potassium 5.5 H (3.5-5.1) mmol/L Chloride 102 (98-107) mmol/L Carbon Dioxide 22 (22-30) mmol/L BUN 133 H* (9-20) mg/dL Creatinine 6.15 H (0.66-1.25) mg/dL Glucose 144 H (74-99) mg/dL Calcium 7.2 L (8.4-10.2) mg/dL AST 33 (17-59) U/L ALT 29 (4-49) U/L Alkaline Phosphatase 118 (38-126) U/L Total Protein 5.2 L (6.3-8.2) g/dL Albumin 2.4 L (3.5-5.0) g/dL Calcium panel 09/01/20 Range/Units 04:32 Calcium 7.2 L (8.4-10.2) mg/dL Albumin 2.4 L (3.5-5.0) g/dL Pituitary panel 09/01/20 Range/Units 04:32 Sodium 135 L (137-145) mmol/L Potassium 5.5 H (3.5-5.1) mmol/L Chloride 102 (98-107) mmol/L Carbon Dioxide 22 (22-30) mmol/L BUN 133 H* (9-20) mg/dL Creatinine 6.15 H (0.66-1.25) mg/dL Glucose 144 H (74-99) mg/dL Calcium 7.2 L (8.4-10.2) mg/dL Adrenal panel 09/01/20 Range/Units 04:32 Sodium 135 L (137-145) mmol/L Potassium 5.5 H (3.5-5.1) mmol/L Chloride 102 (98-107) mmol/L Carbon Dioxide 22 (22-30) mmol/L BUN 133 H* (9-20) mg/dL Creatinine 6.15 H (0.66-1.25) mg/dL Glucose 144 H (74-99) mg/dL Calcium 7.2 L (8.4-10.2) mg/dL Total Bilirubin 0.4 (0.2-1.3) mg/dL AST 33 (17-59) U/L ALT 29 (4-49) U/L Alkaline Phosphatase 118 (38-126) U/L Total Protein 5.2 L (6.3-8.2) g/dL Albumin 2.4 L (3.5-5.0) g/dL
--- NOTE | 2020-09-01 14:18 | P.PN ---
Subjective Progress Note Date: 09/01/20 Covid 19 infection/pneumonia Vent dependent respiratory failure secondary to 1 Bilateral pneumothorax; status post chest tube placement 53-year-old male patient admitted for COVID-19 pneumonitis/sepsis; patient declined despite antibiotic therapy and treatment with high flow oxygen per nasal cannula and developed bilateral spontaneous pneumothorax with pneumomediastinum and subcutaneous emphysema for which he underwent chest tube placement; patient's respiratory status continued to deteriorate and he was ultimately intubated Patient remains in ICU intubated and mechanically ventilated 08/29/2020 patient seen seen and evaluated at bedside; remains intubated and mechanically ventilated;, saturation remains borderline however they were 90% in the morning came down to 84%; patient remains on 100% oxygen; arterial blood gases reviewed; metabolic acidosis appears to be related to acute renal failure; nephrology has been consulted by the oil speculator for nonoliguric acute renal failure likely acute tubular necrosis; patient remains on gentle IV fluid hydration; received 1 amp of bicarb with bicarbonate drip; inflammatory markers are slightly improved; CRP remains elevated; sputum is positive for MSSA and vancomycin has been discontinued patient has 2 chest tubes on the right side and one chest tube on the left side due to pneumomediastinum and bilateral pneumothorax they've been aching is minimal on left and right bottom chest tube significant on apical chest tube however 08/30/2020, patient remains in ICU; medically sedated and paralyzed of propofol and Nimbex, on full ventilator support; saturation 91-92% bilateral chest tubes are present minimal air leak on the left side, right-sided apical tube still having persistent air leak, tolerating tube feed well labs reviewed arterial blood gas reviewed as well along with radiographic findings patient BUN/creatinine continue to go up consistent with acute tubular necrosis likely related to covid 19 sepsis, up to 132 and 5.86 08/31/2020 Patient is seen and evaluated in follow up and currently remains in the ICU and being closely monitored. Patient remains on the mechanical ventilator and currently sedated. Multiple medical consultations following. Nephrology following and has consulted vascular surgery for temporary cath placement for hemodialysis as the BUN/CR continue to worsen. Creatinine today is 6.51 with a BUN of 149. CT chest was ordered and currently pending as patient continues to remain on the vent and also continues to have 2 chest tubes on the right with one on the left. Continued air leak present on the right. a 2D echo was ordered as well. Will repeat am labs and continue to monitor the patient closely. Review of systems: Unable to obtain as patient is intubated and sedated 09/01/2020 Patient is seen in follow-up and currently remains closely monitored in the ICU. Multiple medical consultations following. CT chest was done showing diffuse soft tissue emphysema in the bilateral chest wall with extension into the m ediastinum along with free air in the upper abdomen, mild right pneumothorax less than 20%, pulmonary edema and pleural effusions with bibasilar atelectasis. Surgery was consulted and has ordered a CT of the abdomen and pelvis. Patient currently receiving hemodialysis as an emergent temporary cath was placed yesterday with vascular surgery. Per dialysis nurse patient was able to tolerate approximately 1-1/2 L removal yesterday and today is having hypotension with dialysis. White blood count remains elevated at 22.6, current hemoglobin is 11.6. Sodium is 135 and potassium is 5.5. BUN is 133 and creatinine slightly improved at 6.15. Patient remains on a mechanical ventilator with an FiO2 of 90%. Patient is afebrile. Patient is edematous of bilateral upper and lower extremities. Patient on IV Lasix 60 mg twice daily. Prognosis is extremely poor and guarded. Review of systems: Unable to obtain as patient is intubated and sedated Active Medications Acetaminophen (Acetaminophen Tab 500 Mg Tab) 1,000 mg PO Q6HR PRN PRN Reason: Fever and/ or Pain Last Admin: 08/21/20 10:19 Dose: 1,000 mg Documented by: Ascorbic Acid (Ascorbic Acid 500 Mg Tab) 1,000 mg PO DAILY [facility] Last Admin: 09/01/20 10:00 Dose: 1,000 mg Documented by: Aspirin (Aspirin 81 Mg) 81 mg PO HS [facility] Last Admin: 08/31/20 20:47 Dose: 81 mg Documented by: Chlorhexidine Gluconate (Chlorhexidine Gluconate 15 Ml Cup) 15 ml MUCOUS MEM BID [facility] Last Admin: 09/01/20 10:00 Dose: 15 ml Documented by: Dexamethasone Sodium Phosphate (Dexamethasone Sod Phosphate 10 Mg/Ml 1 Ml Vial) 6 mg IV DAILY [facility] Last Admin: 09/01/20 10:00 Dose: 6 mg Documented by: Enoxaparin Sodium (Enoxaparin 60 Mg/0.6 Ml Syringe) 60 mg SQ Q24HR [facility] Last Admin: 09/01/20 10:00 Dose: 60 mg Documented by: Famotidine (Famotidine 20 Mg/2 Ml Vial) 20 mg IV DAILY [facility] Last Admin: 09/01/20 10:00 Dose: 20 mg Documented by: Furosemide (Furosemide 10 Mg/Ml 10 Ml Vial) 60 mg IV Q12HR [facility] Last Admin: 09/01/20 10:00 Dose: 60 mg Documented by: Hydromorphone HCl (Hydromorphone 1 Mg/Ml 1 Ml Syringe) 1 mg IVP Q2HR PRN PRN Reason: Pain Last Admin: 08/26/20 04:12 Dose: 1 mg Documented by: Propofol 1,000 mg/ IV Solution 100 mls @ 0 mls/hr IV .Q0M [facility]; Protocol Last Admin: 09/01/20 14:09 Dose: 30 mcg/kg/min, 20.988 mls/hr Documented by: Cisatracurium Besylate 200 mg/ (Sodium Chloride) 200 mls @ 5.994 mls/hr IV .Q24H [facility]; Protocol Last Admin: 08/31/20 14:55 Dose: 3 mcg/kg/min, 17.982 mls/hr Documented by: Insulin Human Regular 100 unit (/ Sodium Chloride) 101 mls @ 0 mls/hr IV .Q0M [facility]; Protocol Last Titration: 09/01/20 12:19 Dose: 0 units/hr, 0 mls/hr Documented by: Cefepime HCl 1 gm/ Sodium (Chloride) 50 mls @ 12.5 mls/hr IVPB Q12HR [facility] Last Admin: 09/01/20 07:55 Dose: 12.5 mls/hr Documented by: Fluconazole/Sodium Chloride (100 mg/ IV Solution) 50 mls @ 50 mls/hr IVPB DAILY [facility] Last Admin: 09/01/20 10:01 Dose: 50 mls/hr Documented by: Sodium Chloride (Saline 0.9%) 1,000 mls @ 50 mls/hr IV .Q20H [facility] Last Admin: 09/01/20 12:23 Dose: 50 mls/hr Documented by: Lorazepam (Lorazepam 2 Mg/Ml Inj) 0.5 mg IV Q4HR PRN PRN Reason: Anxiety Last Admin: 08/25/20 08:13 Dose: 0.5 mg Documented by: Miscellaneous Information (Pneumonia Protocol Utilized 1 Each Misc) 1 each PO ONCE PRN PRN Reason: Per Protocol Zinc Sulfate (Zinc Sulfate 220 Mg Cap) 220 mg PO DAILY [facility] Last Admin: 09/01/20 10:01 Dose: 220 mg Documented by: Objective - Vital Signs Vital signs: Vital Signs Temp 98.2 F 09/01/20 12:00 Pulse 88 09/01/20 13:00 Resp 34 H 09/01/20 13:00 BP 118/62 09/01/20 13:00 Pulse Ox 94 L 09/01/20 13:00 Intake & Output 08/31/20 09/01/20 09/01/20 18:59 06:59 18:59 Intake Total 2433.688 1531.025 861.667 Output Total 545 3165 109 Balance 1888.688 -1633.975 752.667 Weight 115.8 kg 120.4 kg 120.4 kg Intake: IV 1075 730 440 Cefepime 1 gm In Sodium 50 50 50 Chloride 0.9% 50 ml @ 12. 5 mls/hr IVPB Q12HR [facility] Rx#:[id number] Dextrose 5% in Water 1, 600 600 250 000 ml @ 50 mls/hr IV . Q23H [facility] with Sodium Bicarb (1 Meq/ml) 150 ml Rx#:[id number] Fluconazole in NaCl,Iso- 50 50 Osm 100 mg In Saline 1 50ml.bag @ 50 mls/hr IVPB DAILY [facility] Rx#:[id number] Sodium Chloride 0.9% 1, 375 000 ml @ 50 mls/hr IV . Q20H [facility] Rx#:[id number] Sodium Chloride 0.9% 1, 50 000 ml @ 50 mls/hr IV . Q20H [facility] Rx#:[id number] sodium chloride @ 10ml hr 80 40 Intake, IV Titration 668.688 121.025 161.667 Amount Cisatracurium 200 mg In 186.713 Sodium Chloride 0.9% 180 ml @ 1 MCG/KG/MIN 5.994 mls/hr IV .Q24H [facility] Rx#: [id number] Insulin Regular 100 unit 281.975 21.025 161.667 In Sodium Chloride 0.9% 100 ml @ Per Protocol IV .Q0M [facility] Rx#:[id number] propofoL 1,000 mg In 200 100 Empty Bag 1 bag @ Titrate IV .Q0M [facility] Rx#: [id number] Oral 500 Tube Feeding 600 90 30 Other 90 90 230 Output: Chest Tube Drainage 30 70 Chest Tube Right Upper 30 Left Upper Anterior Chest 70 Urine 515 165 39 Hemodialysis 1500 Other 1500 Other: Voiding Method Indwelling Catheter Indwelling Catheter Indwelling Catheter # Bowel Movements 1 - Exam GENERAL: The patient is intubated and sedated and appears to be in no acute distress. Temp is 98.2F, pulse is 77, respirations are 34, blood pressure is 115/60, oxygen saturation is 97% on mechanical vent. HEENT: Pupils are round and equally reacting to light. EOMI. No scleral icterus. No conjunctival pallor. Normocephalic, atraumatic. No pharyngeal erythema. No thyromegaly. ET tube noted CARDIOVASCULAR: S1 and S2 present. No murmurs, rubs, or gallops. PULMONARY: Bilateral scattered rhonchi, no wheezing noted diminished air entry bilaterally worse on the right, tachypneic, 2 chest tubes noted on the right side and one on the left ABDOMEN: Soft, nontender, nondistended, normoactive bowel sounds. No palpable organomegaly. MUSCULOSKELETAL: No joint swelling or deformity. EXTREMITIES: No cyanosis, clubbing, or pedal edema. Bilateral upper and lower extremity edema noted on exam NEUROLOGICAL: Unable to fully assess as patient is intubated and sedated SKIN: No rashes. Note: Because of COVID 19 isolation, some of the history and physical exam findings are indirect and obtained from nursing staff, and other physician examinations to avoid unnecessary contact with the patient. - Labs CBC & Chem 7: 09/01/20 04:32 09/01/20 04:32 Labs: Abnormal Lab Results - Last 24 Hours (Table) 08/28/20 08/29/20 08/31/20 Range/Units 07:16 11: 14:04 WBC (3.8-10.6) k/uL RBC (4.30-5.90) m/uL Hgb (13.0-17.5) gm/dL Hct (39.0-53.0) % Neutrophils # (1.3-7.7) k/uL Lymphocytes # (1.0-4.8) k/uL ABG pH 7.16 L* 7.17 L* (7.35-7.45) ABG pCO2 (35-45) mmHg ABG pO2 (83-108) mmHg ABG O2 Saturation (94-97) % Sodium (137-145) mmol/L Potassium (3.5-5.1) mmol/L BUN (9-20) mg/dL Creatinine (0.66-1.25) mg/dL Glucose (74-99) mg/dL POC Glucose (mg/dL) 193 H (75-99) mg/dL Calcium (8.4-10.2) mg/dL Ferritin (22.0-322.0) ng/mL Lactate Dehydrogenase (313-618) U/L Creatine Kinase (55-170) U/L C-Reactive Protein (<10.0) mg/L Total Protein (6.3-8.2) g/dL Albumin (3.5-5.0) g/dL 08/31/20 08/31/20 08/31/20 Range/Units 15:01 16:21 17:48 WBC (3.8-10.6) k/uL RBC (4.30-5.90) m/uL Hgb (13.0-17.5) gm/dL Hct (39.0-53.0) % Neutrophils # (1.3-7.7) k/uL Lymphocytes # (1.0-4.8) k/uL ABG pH (7.35-7.45) ABG pCO2 (35-45) mmHg ABG pO2 (83-108) mmHg ABG O2 Saturation (94-97) % Sodium (137-145) mmol/L Potassium (3.5-5.1) mmol/L BUN (9-20) mg/dL Creatinine (0.66-1.25) mg/dL Glucose (74-99) mg/dL POC Glucose (mg/dL) 200 H 175 H 137 H (75-99) mg/dL Calcium (8.4-10.2) mg/dL Ferritin (22.0-322.0) ng/mL Lactate Dehydrogenase (313-618) U/L Creatine Kinase (55-170) U/L C-Reactive Protein (<10.0) mg/L Total Protein (6.3-8.2) g/dL Albumin (3.5-5.0) g/dL 08/31/20 08/31/20 08/31/20 Range/Units 19:18 21:00 22:20 WBC (3.8-10.6) k/uL RBC (4.30-5.90) m/uL Hgb (13.0-17.5) gm/dL Hct (39.0-53.0) % Neutrophils # (1.3-7.7) k/uL Lymphocytes # (1.0-4.8) k/uL ABG pH (7.35-7.45) ABG pCO2 (35-45) mmHg ABG pO2 (83-108) mmHg ABG O2 Saturation (94-97) % Sodium (137-145) mmol/L Potassium (3.5-5.1) mmol/L BUN (9-20) mg/dL Creatinine (0.66-1.25) mg/dL Glucose (74-99) mg/dL POC Glucose (mg/dL) 128 H 189 H 169 H (75-99) mg/dL Calcium (8.4-10.2) mg/dL Ferritin (22.0-322.0) ng/mL Lactate Dehydrogenase (313-618) U/L Creatine Kinase (55-170) U/L C-Reactive Protein (<10.0) mg/L Total Protein (6.3-8.2) g/dL Albumin (3.5-5.0) g/dL 08/31/20 09/01/20 09/01/20 Range/Units 23:08 00:16 01:21 WBC (3.8-10.6) k/uL RBC (4.30-5.90) m/uL Hgb (13.0-17.5) gm/dL Hct (39.0-53.0) % Neutrophils # (1.3-7.7) k/uL Lymphocytes # (1.0-4.8) k/uL ABG pH (7.35-7.45) ABG pCO2 (35-45) mmHg ABG pO2 (83-108) mmHg ABG O2 Saturation (94-97) % Sodium (137-145) mmol/L Potassium (3.5-5.1) mmol/L BUN (9-20) mg/dL Creatinine (0.66-1.25) mg/dL Glucose (74-99) mg/dL POC Glucose (mg/dL) 141 H 152 H 122 H (75-99) mg/dL Calcium (8.4-10.2) mg/dL Ferritin (22.0-322.0) ng/mL Lactate Dehydrogenase (313-618) U/L Creatine Kinase (55-170) U/L C-Reactive Protein (<10.0) mg/L Total Protein (6.3-8.2) g/dL Albumin (3.5-5.0) g/dL 09/01/20 09/01/20 09/01/20 Range/Units 04:32 04:32 06:17 WBC 22.6 H (3.8-10.6) k/uL RBC 4.17 L (4.30-5.90) m/uL Hgb 11.6 L (13.0-17.5) gm/dL Hct 37.1 L (39.0-53.0) % Neutrophils # 21.0 H (1.3-7.7) k/uL Lymphocytes # 0.3 L (1.0-4.8) k/uL ABG pH 7.21 L (7.35-7.45) ABG pCO2 55 H (35-45) mmHg ABG pO2 68 L (83-108) mmHg ABG O2 Saturation 88.4 L (94-97) % Sodium 135 L (137-145) mmol/L Potassium 5.5 H (3.5-5.1) mmol/L BUN 133 H* (9-20) mg/dL Creatinine 6.15 H (0.66-1.25) mg/dL Glucose 144 H (74-99) mg/dL POC Glucose (mg/dL) (75-99) mg/dL Calcium 7.2 L (8.4-10.2) mg/dL Ferritin 1244.2 H (22.0-322.0) ng/mL Lactate Dehydrogenase 1208 H (313-618) U/L Creatine Kinase 243 H (55-170) U/L C-Reactive Protein 54.2 H (<10.0) mg/L Total Protein 5.2 L (6.3-8.2) g/dL Albumin 2.4 L (3.5-5.0) g/dL 09/01/20 09/01/20 09/01/20 Range/Units 08:23 09:31 10:47 WBC (3.8-10.6) k/uL RBC (4.30-5.90) m/uL Hgb (13.0-17.5) gm/dL Hct (39.0-53.0) % Neutrophils # (1.3-7.7) k/uL Lymphocytes # (1.0-4.8) k/uL ABG pH (7.35-7.45) ABG pCO2 (35-45) mmHg ABG pO2 (83-108) mmHg ABG O2 Saturation (94-97) % Sodium (137-145) mmol/L Potassium (3.5-5.1) mmol/L BUN (9-20) mg/dL Creatinine (0.66-1.25) mg/dL Glucose (74-99) mg/dL POC Glucose (mg/dL) 245 H 184 H 154 H (75-99) mg/dL Calcium (8.4-10.2) mg/dL Ferritin (22.0-322.0) ng/mL Lactate Dehydrogenase (313-618) U/L Creatine Kinase (55-170) U/L C-Reactive Protein (<10.0) mg/L Total Protein (6.3-8.2) g/dL Albumin (3.5-5.0) g/dL 09/01/20 09/01/20 Range/Units 12:10 13:26 WBC (3.8-10.6) k/uL RBC (4.30-5.90) m/uL Hgb (13.0-17.5) gm/dL Hct (39.0-53.0) % Neutrophils # (1.3-7.7) k/uL Lymphocytes # (1.0-4.8) k/uL ABG pH (7.35-7.45) ABG pCO2 (35-45) mmHg ABG pO2 (83-108) mmHg ABG O2 Saturation (94-97) % Sodium (137-145) mmol/L Potassium (3.5-5.1) mmol/L BUN (9-20) mg/dL Creatinine (0.66-1.25) mg/dL Glucose (74-99) mg/dL POC Glucose (mg/dL) 133 H 106 H (75-99) mg/dL Calcium (8.4-10.2) mg/dL Ferritin (22.0-322.0) ng/mL Lactate Dehydrogenase (313-618) U/L Creatine Kinase (55-170) U/L C-Reactive Protein (<10.0) mg/L Total Protein (6.3-8.2) g/dL Albumin (3.5-5.0) g/dL Microbiology - Last 24 Hours (Table) 09/01/20 06:24 Gram Stain - Preliminary Sputum Sputum Culture - Preliminary 08/31/20 18:35 Urine Culture - Preliminary Urine,Catheterized Assessment and Plan Assessment: -Covid 19 infection/pneumonia -acute renal failure likely acute tubular necrosis, currently requiring hemodialysis -Acute respiratory arrest with hypoxia -Right side pneumothorax , small stable left-sided pneumothorax. -Type 2 diabetes mellitus uncontrolled -mild hypovolemic hyponatremia -Hypertension: -DVT prophylaxis with Lovenox -GI prophylaxis: Pepcid Plan: Continue current medications and continue to monitor closely. Patient currently in the ICU for close monitoring. Currently with 2 chest tubes on the right side with continued air leak and one chest tube on the left side. Patient is currently intubated and sedated. Maintained on IV antibiotics and will continue at this time. Pulmonary and infectious disease also following along with nephrology and vascular surgery. Patient received temporary catheter placement in the groin for hemodialysis. Prognosis is extremely guarded and poor. Will continue to monitor vital signs and labs closely. Further recommendations to follow. Prognosis is poor and extremely guarded as mentioned previously. 2D echo was done although limited in no images available. CT of the chest was also done showing diffuse soft tissue emphysema in the bilateral chest wall with extension into the mediastinum pneumomediastinum with free air in the upper abdomen along with mild right pneumothorax less than 20% and pulmonary edema and pleural effusions with bibasilar atelectasis. Surgery was consulted as free air was noted in the abdomen and a CT abdomen and pelvis was currently ordered and pending at this time. Further recommendations to follow.
--- NOTE | 2020-09-01 15:05 | CT ---
EXAMINATION TYPE: CT abdomen pelvis wo con DATE OF EXAM: 09/01/2020 HISTORY: Free air on ct chest. CT DLP: 1934 mGycm. Automated Exposure Control for Dose Reduction was Utilized. TECHNIQUE: CT scan of the abdomen and pelvis is performed with oral but without IV contrast. COMPARISON: Chest CT earlier today FINDINGS: Within the limitations of a non-contrast study, the following observations are made. LUNG BASES: Pneumomediastinum redemonstrated partially imaged. There is anterior right basilar pneumo thorax that is larger from most recent CT, chest tube outside the field of view on current study visu alized right lung shows persistent groundglass opacity. LIVER/GB: No significant abnormality is appreciated. PANCREAS: Single calcification pancreatic head axial image 56. SPLEEN: No significant abnormality is seen. ADRENALS: No significant abnormality is seen. KIDNEYS: Several nonobstructing left renal calculi mid to lower pole level some somewhat staghorn in appearance. Single 3 mm nonobstructing calculus right kidney midpole level medially on axial image 59 . No hydronephrosis or obstructing renal calculi bilaterally. Hallman catheter in decompressed bladder. Exophytic 2.2 cm simple thin-walled cyst lower pole left kidney coronal image 71. BOWEL: Nasogastric tube in decompressed stomach. Oral contrast reaches the level of the transverse co jim. There is no free extravasation of contrast. There is fluid filled distal colon with likely dilut ed contrast. No suspicious small or large bowel dilatation. Stomach suboptimally distended and thus p oorly evaluated. GENITAL ORGANS: Prostate gland upper limits of normal in size. Small amount of free fluid in pelvis s uperior to prostate gland. LYMPH NODES: No greater than 1cm abdominal or pelvic lymph nodes are appreciated. OSSEOUS STRUCTURES: No significant abnormality is seen. OTHER: There is significant free air confirmed greatest in the upper abdomen. Mesenteric clips with artifact in the midabdomen anteriorly from image 74 is noted. Some adjacent focal free air noted. The re is hernia defect containing free air right mid abdomen image 99. There is moderate diffuse soft ti ssue anasarca greatest over the pelvis. There is right common femoral venous catheter terminating in the distal common iliac vein. IMPRESSION: Confirmation of suspected pneumoperitoneum. Etiology uncertain. Anterior midline mid abdo alexandra mesenteric surgical clips of uncertain etiology have adjacent free air, correlate clinically fo r possible source.
[2020-09-01 15:09] LABS: Glucose,Whole Blood 155 mg/dL (75-99)
[2020-09-01 16:56] LABS: Glucose,Whole Blood 158 mg/dL (75-99)
[2020-09-01 18:24] LABS: Glucose,Whole Blood 128 mg/dL (75-99)
--- NOTE | 2020-09-01 18:57 | P.PN ---
Subjective Progress Note Date: 09/01/20 Principal diagnosis: Right spontaneous pneumothorax status post 2 chest tubes Pneumomediastinum Left spontaneous pneumothorax Acute hypoxic respiratory failure Covid 19 pneumonia Type 2 diabetes mellitus Hypertension hypertensive cardiovascular disease Dehydration hypovolemia and hyponatremia Depression 09/01/2020, patient seen eval examined care plan discussed with the staff at length, patient remains on 100% oxygen assist control rate of 34 tidal volume of the 500 PEEP of 12, patient had second cycle hemodialysis today 500 mL was removed yesterday 1.5 L was removed, patient was found to have free air in the abdomen by a chest CT, no hollow viscus perforation have been noted, here appears to be thoracic air escaping into the abdominal cavity, patient has minimal pneumothorax on the right side with a stable chest tube in the pleural space draining air right upper chest tube continued to drain area continuously however lower chest tube intermittently, patient has extensive pneumomediastinum by CAT scan, left-sided pneumothorax significantly improved minimal or no air leak has been present on the left chest tube, white cell count is up to 22,000, ABG slightly improved and better pH is 7.21, potassium is 5.5, BUN/creatinine was up to 133 and 6.5 postdialysis labs are pending, patient is resumed back on tube feed post second dialysis sats have improved to 96% will titrate oxygen down as tolerated to keep saturation over 92%, critical care time spent 40 minutes 08/31/2020, patient seen eval examined during the rounds labs reviewed medications reviewed care plan discussed with the staff at length, remains medically paralyzed with propofol and Nimbex drip, chest tubes is still significantly leaking on the right side lungs are well expanded though, minimum leak is present at the base, cardiothoracic surgery is have recommended to follow it up closely, no active intervention has been recommended, renal function continued to get worse, patient has been getting diuresis with loop diuretics, would recommend to discontinue it patient remains on bicarb drip, along with anticoagulation, when setting remains stable assist control rate of 24 deep of 12 tidal volume 500 with 100% oxygen, saturation is just a 88-90%, continue broad-spectrum antibiotics and supportive care long-term prognosis poor will defer decision about dialysis to the family and renal services 08/30/2020, patient seen eval examined during the rounds medically sedated and paralyzed of propofol and Nimbex, on full ventilator support with assist control rate of 24 EP is 1200% oxygen which has been reduced to 90% now, saturation 91- 92%, bilateral chest tubes are present minimal air leak on the left side, right- sided apical tube still having persistent nearly however distal intermittently, tolerating tube feed well, labs reviewed arterial blood gas reviewed as well along with radiographic findings patient BUN/creatinine continue to go up consistent with acute tubular necrosis likely related to covid 19 sepsis, arterial blood gases revealed pH is 7.18 pCO2 54 pO2 90, patient improved to 5.4, BUN/creatinine up to 132 and 5.86 08/29/2020, patient seen eval examined during the rounds labs reviewed medications reviewed care plan discussed with the staff including RN and respiratory therapy at length, saturation remains borderline however they were 90% in the morning came down to 84% increasing PEEP causes rapid increase in peak air pressure and platue pressure up to 55 and 35, PEEP lowered to 12, patient remains on 100% oxygen with full assist control mode, arterial blood gases reviewed and significant metabolic acidosis appears to be related to acute renal failure, renal services have been consulted, patient appears to have nonoliguric acute renal failure likely acute tubular necrosis, patient remains gently hydrated to feed and given, remains afebrile, white cell count remains on higher side hemoglobin stable, arterial blood gases noted to be to be pH of 7.18 pCO2 53 pO2 70, 1 amp of bicarb along with bicarb drip have been initiated, potassium running on the higher side of 5.8, inflammatory parameters slightly down of thousand today LDH and C-reactive protein remains elevated, sputum for positive for a MSSA, vancomycin has been discontinued which may be contributing to acute kidney injury, patient remains on the propofol as well as Nimbex drip, patient has 2 chest tubes on the right side and one chest tube on the left side due to pneumomediastinum and bilateral pneumothorax they've been aching is minimal on left and right bottom chest tube significant on apical chest tube however 08/28/2020, patient seen eval examined during the rounds labs reviewed medications reviewed, currently patient is on ventilator support PEEP of 10, 90% oxygen, assist control rate of 30, care blood gases reviewed, chest x-ray reviewed, minimal bilateral apical pneumothorax is present, stable left-sided chest U no air leak is present, right-sided apical tube continued to bubble significant air leak, bottom minimal, patient is medically paralyzed with propo fol and Nimbex, laboratory data reviewed discussed at length with the staff 08/27/2020, patient seen eval examined during the rounds sedated and medically paralyzed, right-sided chest tube is still significantly and leak upper tube is present no significantly is seen in the 1 and also left side, labs and arterial blood gases reviewed and ventilator adjusted, chest U was stable on chest x-ray, apical very small pneumothorax, 08/26/2020, patient seen eval examined during the rounds labs reviewed medications reviewed, chest tube continue to gently air, patient intubated, on full ventilator support noted evidence of hypercapnia with increase the ventilation C orders, chest x-ray reviewed trace pneumothorax on the apex cannot be excluded, basal bilateral dense infiltrate with mediastinal emphysema, no significant pneumothorax seen, labs reviewed, critical care time 35 minutes 08/25/2020, patient seen eval examined during the rounds labs reviewed medications reviewed care plan discussed with the staff, patient had a respiratory arrest earlier this morning during which he pulled out his BiPAP machine oxygen saturation dropped down into 20s, he also tried to pull out his chest tube, during that process he was intubated, postintubation chest x-ray shows minimal pneumothorax on the right side left-sided pneumothorax or anterior posterior cannot be excluded, extensive pneumomediastinum is present, patient currently and placed on the propofol at 75 mics was very restless and agitated, tachypneic tachycardic and eventually medically paralyzed with Nimbex drip, respiratory status slightly more stable patient is more calm and now hemodynamics stable, has been getting IV fluids, will need a chest tube on the the left side to avoid tension pneumothorax, keep the 2 chest tube on the right side 1 direct towards the apex appears to be stable however one at the base of the lung is still in, dense bilateral infiltrate are present, white cell count is up to 34,000, arterial blood gas and chest x-ray reviewed consistent with respiratory and metabolic acidosis, with severe hypoxia requiring PEEP with high ventilatory rate 08/24/2020, patient seen eval examined during the rounds labs reviewed medications reviewed sitting upright on the bed, remains on BiPAP with 100% o xygen, saturation 95%, patient desaturated into goes on the right side down and intermittently during supine posture, however do better with left side up, and sitting up as well, chest x-ray from today reviewed pneumothorax recurred on the right side in spite of 2 chest tube aiming towards the apex and the base with significant air leak, small left apical pneumothorax however is stable, patient is awaiting evaluation from thoracic surgery for possible VATS or transfer to tertiary care center, left side and INR will put a small bore pigtail catheter at the apex later on this morning, patient remains afebrile slightly tachycardic tachypneic, inflammatory parameters still up, prognosis is guarded care plan discussed directly and indirectly with primary service, staff, cardiothoracic and IR 08/23/2020, patient seen eval reexamined during the rounds labs reviewed medications reviewed, oxygen saturation remained stable, however patient couldn't tolerate off of BiPAP, he remains on BiPAP. All, chest x-ray reviewed, patient hasn't to right-sided chest tube air leak is present from both, left- sided residual small pneumothorax present along with subcutaneous emphysema and mediastinal emphysema, interventional radiology could not do a chest tube on the left side, they are planning to do it tomorrow, white cell count decreased to 19,000, d-dimer is still elevated inflammatory parameters elevated consistent with cytokine nita 08/22/2020, patient seen eval reexamined significant desaturation was more noted, sats dropped down to 55-70% spontaneously comes right back up though currently on 93% BiPAP, Semiprone with the right side up patient cannot tolerate airvo, desaturated easily remains tachypneic tachycardic hemodynamic status however remains stable, chest x-ray findings reviewed in spite of right-sided chest tube and persistent air leak there is a persistent spontaneous pneu mothorax fairly large on the right side and small apical left sided spontaneous pneumothorax noted with pneumomediastinum and bilateral dense infiltrate at the bases, thoracic surgery has been consulted, patient may need an another chest tube on the right side versus VATS and preferably and of the small chest U was on the left side, will defer to expertise of thoracic surgery, labs reviewed medications reviewed care plan discussed at length with the staff 08/21/2020, patient seen eval examined during the rounds sitting upright in chair breathing slightly better oxygen saturation is 87-88%, patient is on high flow oxygen along with the nonrebreather mass, tachypneic tachycardic blood pressure is slightly high, patient has a right-sided chest tube is still leaking air, chest x-ray reviewed bilateral infiltrate is present with residual pneumothorax and subcu emphysema, labs from today reviewed white cell count remains elevated 20,000, renal functions stable, will attempt semi-prone with right side up, we will obtain an transfuse convalescent plasma 08/20/2020, patient seen eval examined during the rounds a labs reviewed medications reviewed this morning patient had problems with agitated anxiety and a prehension, oxygen saturation dropped down into 70s, rapid response was called and stat chest x-ray revealed presence of pneumothorax which is significant on the right side as well they may be a small mediastinal emphysema on the left side as well, patient has been made semi-prone with that oxygen saturation 100% nonrebreather mask improved to 92% patient is more calm, he remains afebrile temperature is 98.3 respiratory rate and mid to high 20s, weight is oxygen saturation 94%, chest x-ray finding reviewed 08/19/2020, patient seen eval examined during the rounds labs reviewed medications reviewed care plan discussed, patient is sitting upright on the bed on 100% nonrebreather mask, saturation remains marginal about 88%, remains afebrile, slightly anxious, advised based he hasn't to be on prone position as much as possible, labs reviewed white cell count is 17,000, patient remains on Remdesivir, Decadron, Lovenox August 18 2020, patient seen eval examined during the rounds is still on 5 L high flow oxygen, denies any chest pain breathing difficulties present, denies any cough or sputum production labs chest x-ray reviewed This is a 59-year-old male who has history of diabetes hypertension hypertensive cardiovascular disease and not feeling well for the last 5-6 days with cough and increased shortness of breath started with a sore throat, patient admitted into the hospital was spiking fever up to 101, oxygen saturation 90%, patient already has been started on REM doesn't wear and Decadron, his initial admit x-ray cystoscopy right midlung field and left lower lid feeding infiltrate patient gradually got worse initially has been on room air oxygen requirement keep on going up to 3 L and subsequently on 5 L high flow oxygen with that oxygen saturation is 93%, critical care time spent 35 minutes Objective - Vital Signs Vital signs: Vital Signs Temp 98.0 F 09/01/20 14:06 Pulse 90 09/01/20 18:00 Resp 34 H 09/01/20 18:00 BP 147/68 09/01/20 18:00 Pulse Ox 97 09/01/20 18:00 Intake & Output 08/31/20 09/01/20 09/01/20 18:59 06:59 18:59 Intake Total 2433.688 1873.053 5870.516 Output Total 545 3165 679 Balance 1888.688 -0061.334 3670.516 Weight 115.8 kg 120.4 kg 120.4 kg Intake: IV 1075 730 690 Cefepime 1 gm In Sodium 50 50 50 Chloride 0.9% 50 ml @ 12. 5 mls/hr IVPB Q12HR MARJAN Rx#:[id number] Dextrose 5% in Water 1, 600 600 250 000 ml @ 50 mls/hr IV . Q23H MARJAN with Sodium Bicarb (1 Meq/ml) 150 ml Rx#:[id number] Fluconazole in NaCl,Iso- 50 50 Osm 100 mg In Saline 1 50ml.bag @ 50 mls/hr IVPB DAILY MARJAN Rx#:[id number] Sodium Chloride 0.9% 1, 375 000 ml @ 50 mls/hr IV . Q20H MARJAN Rx#:[id number] Sodium Chloride 0.9% 1, 300 000 ml @ 50 mls/hr IV . Q20H [facility]JAN Rx#:[id number] sodium chloride @ 10ml hr 80 40 Intake, IV Titration 668.688 121.025 293.516 Amount Cisatracurium 200 mg In 186.713 Sodium Chloride 0.9% 180 ml @ 1 MCG/KG/MIN 5.994 mls/hr IV .Q24H MARJAN Rx#: [id number] Insulin Regular 100 unit 281.975 21.025 193.516 In Sodium Chloride 0.9% 100 ml @ Per Protocol IV .Q0M MARJAN Rx#:[id number] propofoL 1,000 mg In 200 100 100 Empty Bag 1 bag @ Titrate IV .Q0M MARJAN Rx#: [id number] Oral 500 Tube Feeding 600 90 85 Other 90 90 1230 Output: Chest Tube Drainage 30 150 Chest Tube Right 0 Chest Tube Right Upper 30 30 Left Upper Anterior Chest 120 Urine 515 165 79 Hemodialysis 1500 450 Other 1500 Other: Voiding Method Indwelling Catheter Indwelling Catheter Indwelling Catheter # Bowel Movements 1 - Exam - Constitutional General appearance: Intubated medically paralyzed on full ventilator support - EENT Eyes: EOMI, PERRLA Ears: bilateral: normal - Neck Neck: normal ROM Carotids: bilateral: upstroke normal Thyroid: bilateral: normal size - Respiratory Respiratory: bilateral: diminished - Cardiovascular Rhythm: regular Heart sounds: normal: S1, S2 - Gastrointestinal General gastrointestinal: normal bowel sounds - Neurologic Neurologic: CNII-XII intact - Musculoskeletal Musculoskeletal: gait normal, generalized weakness, strength equal bilaterally - Psychiatric Psychiatric: Appears, now post medical paralysis - Labs CBC & Chem 7: 09/01/20 04:32 09/01/20 04:32 Labs: Abnormal Lab Results - Last 24 Hours (Table) 08/28/20 08/29/20 08/31/20 Range/Units 07:16 11:21 19:18 WBC (3.8-10.6) k/uL RBC (4.30-5.90) m/uL Hgb (13.0-17.5) gm/dL Hct (39.0-53.0) % Neutrophils # (1.3-7.7) k/uL Lymphocytes # (1.0-4.8) k/uL ABG pH 7.16 L* 7.17 L* (7.35-7.45) ABG pCO2 (35-45) mmHg ABG pO2 (83-108) mmHg ABG O2 Saturation (94-97) % Sodium (137-145) mmol/L Potassium (3.5-5.1) mmol/L BUN (9-20) mg/dL Creatinine (0.66-1.25) mg/dL Glucose (74-99) mg/dL POC Glucose (mg/dL) 128 H (75-99) mg/dL Calcium (8.4-10.2) mg/dL Ferritin (22.0-322.0) ng/mL Lactate Dehydrogenase (313-618) U/L Creatine Kinase (55-170) U/L C-Reactive Protein (<10.0) mg/L Total Protein (6.3-8.2) g/dL Albumin (3.5-5.0) g/dL 08/31/20 08/31/20 08/31/20 Range/Units 21:00 22:20 23:08 WBC (3.8-10.6) k/uL RBC (4.30-5.90) m/uL Hgb (13.0-17.5) gm/dL Hct (39.0-53.0) % Neutrophils # (1.3-7.7) k/uL Lymphocytes # (1.0-4.8) k/uL ABG pH (7.35-7.45) ABG pCO2 (35-45) mmHg ABG pO2 (83-108) mmHg ABG O2 Saturation (94-97) % Sodium (137-145) mmol/L Potassium (3.5-5.1) mmol/L BUN (9-20) mg/dL Creatinine (0.66-1.25) mg/dL Glucose (74-99) mg/dL POC Glucose (mg/dL) 189 H 169 H 141 H (75-99) mg/dL Calcium (8.4-10.2) mg/dL Ferritin (22.0-322.0) ng/mL Lactate Dehydrogenase (313-618) U/L Creatine Kinase (55-170) U/L C-Reactive Protein (<10.0) mg/L Total Protein (6.3-8.2) g/dL Albumin (3.5-5.0) g/dL 09/01/20 09/01/20 09/01/20 Range/Units 00:16 01:21 04:32 WBC 22.6 H (3.8-10.6) k/uL RBC 4.17 L (4.30-5.90) m/uL Hgb 11.6 L (13.0-17.5) gm/dL Hct 37.1 L (39.0-53.0) % Neutrophils # 21.0 H (1.3-7.7) k/uL Lymphocytes # 0.3 L (1.0-4.8) k/uL ABG pH (7.35-7.45) ABG pCO2 (35-45) mmHg ABG pO2 (83-108) mmHg ABG O2 Saturation (94-97) % Sodium (137-145) mmol/L Potassium (3.5-5.1) mmol/L BUN (9-20) mg/dL Creatinine (0.66-1.25) mg/dL Glucose (74-99) mg/dL POC Glucose (mg/dL) 152 H 122 H (75-99) mg/dL Calcium (8.4-10.2) mg/dL Ferritin (22.0-322.0) ng/mL Lactate Dehydrogenase (313-618) U/L Creatine Kinase (55-170) U/L C-Reactive Protein (<10.0) mg/L Total Protein (6.3-8.2) g/dL Albumin (3.5-5.0) g/dL 09/01/20 09/01/20 09/01/20 Range/Units 04:32 06:17 08:23 WBC (3.8-10.6) k/uL RBC (4.30-5.90) m/uL Hgb (13.0-17.5) gm/dL Hct (39.0-53.0) % Neutrophils # (1.3-7.7) k/uL Lymphocytes # (1.0-4.8) k/uL ABG pH 7.21 L (7.35-7.45) ABG pCO2 55 H (35-45) mmHg ABG pO2 68 L (83-108) mmHg ABG O2 Saturation 88.4 L (94-97) % Sodium 135 L (137-145) mmol/L Potassium 5.5 H (3.5-5.1) mmol/L BUN 133 H* (9-20) mg/dL Creatinine 6.15 H (0.66-1.25) mg/dL Glucose 144 H (74-99) mg/dL POC Glucose (mg/dL) 245 H (75-99) mg/dL Calcium 7.2 L (8.4-10.2) mg/dL Ferritin 1244.2 H (22.0-322.0) ng/mL Lactate Dehydrogenase 1208 H (313-618) U/L Creatine Kinase 243 H (55-170) U/L C-Reactive Protein 54.2 H (<10.0) mg/L Total Protein 5.2 L (6.3-8.2) g/dL Albumin 2.4 L (3.5-5.0) g/dL 09/01/20 09/01/20 09/01/20 Range/Units 09:31 10:47 12:10 WBC (3.8-10.6) k/uL RBC (4.30-5.90) m/uL Hgb (13.0-17.5) gm/dL Hct (39.0-53.0) % Neutrophils # (1.3-7.7) k/uL Lymphocytes # (1.0-4.8) k/uL ABG pH (7.35-7.45) ABG pCO2 (35-45) mmHg ABG pO2 (83-108) mmHg ABG O2 Saturation (94-97) % Sodium (137-145) mmol/L Potassium (3.5-5.1) mmol/L BUN (9-20) mg/dL Creatinine (0.66-1.25) mg/dL Glucose (74-99) mg/dL POC Glucose (mg/dL) 184 H 154 H 133 H (75-99) mg/dL Calcium (8.4-10.2) mg/dL Ferritin (22.0-322.0) ng/mL Lactate Dehydrogenase (313-618) U/L Creatine Kinase (55-170) U/L C-Reactive Protein (<10.0) mg/L Total Protein (6.3-8.2) g/dL Albumin (3.5-5.0) g/dL 09/01/20 09/01/20 09/01/20 Range/Units 13:26 15:08 16:54 WBC (3.8-10.6) k/uL RBC (4.30-5.90) m/uL Hgb (13.0-17.5) gm/dL Hct (39.0-53.0) % Neutrophils # (1.3-7.7) k/uL Lymphocytes # (1.0-4.8) k/uL ABG pH (7.35-7.45) ABG pCO2 (35-45) mmHg ABG pO2 (83-108) mmHg ABG O2 Saturation (94-97) % Sodium (137-145) mmol/L Potassium (3.5-5.1) mmol/L BUN (9-20) mg/dL Creatinine (0.66-1.25) mg/dL Glucose (74-99) mg/dL POC Glucose (mg/dL) 106 H 155 H 158 H (75-99) mg/dL Calcium (8.4-10.2) mg/dL Ferritin (22.0-322.0) ng/mL Lactate Dehydrogenase (313-618) U/L Creatine Kinase (55-170) U/L C-Reactive Protein (<10.0) mg/L Total Protein (6.3-8.2) g/dL Albumin (3.5-5.0) g/dL 09/01/20 Range/Units 18:22 WBC (3.8-10.6) k/uL RBC (4.30-5.90) m/uL Hgb (13.0-17.5) gm/dL Hct (39.0-53.0) % Neutrophils # (1.3-7.7) k/uL Lymphocytes # (1.0-4.8) k/uL ABG pH (7.35-7.45) ABG pCO2 (35-45) mmHg ABG pO2 (83-108) mmHg ABG O2 Saturation (94-97) % Sodium (137-145) mmol/L Potassium (3.5-5.1) mmol/L BUN (9-20) mg/dL Creatinine (0.66-1.25) mg/dL Glucose (74-99) mg/dL POC Glucose (mg/dL) 128 H (75-99) mg/dL Calcium (8.4-10.2) mg/dL Ferritin (22.0-322.0) ng/mL Lactate Dehydrogenase (313-618) U/L Creatine Kinase (55-170) U/L C-Reactive Protein (<10.0) mg/L Total Protein (6.3-8.2) g/dL Albumin (3.5-5.0) g/dL Microbiology - Last 24 Hours (Table) 08/31/20 18:35 Urine Culture - Preliminary Urine,Catheterized Yeast species 09/01/20 06:24 Gram Stain - Preliminary Sputum Sputum Culture - Preliminary Assessment and Plan Assessment: Acute hypoxic and hypercapnic respiratory failure Status post respiratory arrest patient intubated MSSA pneumonia Acute kidney injury likely related to acute tubular necrosis as well as vancomycin associated renal damage Right spontaneous pneumothorax in spite of right-sided double chest tube persistent air leak Anterior posterior pneumothorax on the left side status post left-sided chest tube Extensive Pneumomediastinum Left spontaneous pneumothorax, will put a small bore chest tube to avoid tension pneumothorax Acute hypoxic respiratory failure Covid 19 pneumonia Type 2 diabetes mellitus Hypertension hypertensive cardiovascular disease Dehydration hypovolemia and hyponatremia Depression Overall prognosis is very poor Plan: Chest tube assessment and plan for bilateral pneumothoraces and pneumomediastinum as above, continue suction 40 cm water on the right side 20 cm water and left side Bicarb drip, 50 mEq of bicarbonate as needed, has been discontinued as dialysis is in progress Hemodialysis as per renal services Monitor renal output closely Continue antihypertensive agent from home Continue to follow sugars closely Observe off of vancomycin, continue cefepime adjusted for renal failure Ventilator adjustment as needed and adjustment of PEEP as noted above Status post Convalescent plasma Continue Decadron and status post IV Remdesivir for 5 days respectively Further plan of care as per clinical response of the patient, overall prognosis is guarded Time with Patient: Greater than 30
[2020-09-01 19:19] LABS: Glucose,Whole Blood 132 mg/dL (75-99)
[2020-09-01 20:14] LABS: Glucose,Whole Blood 118 mg/dL (75-99)
[2020-09-01] MEDS: ASPIRIN 81 MG PO SCH (20:20)
[2020-09-01 22:13] LABS: Glucose,Whole Blood 134 mg/dL (75-99)
[2020-09-01] MEDS: CISATRACURIUM 200 MG in SODIUM CHLORIDE 0.9% 180 ML IV SCH (23:17)
[2020-09-02] MEDS: metroNIDAZOLE-NS PMX 500 MG in SALINE 1 100ML.BAG IVPB SCH ×4 (00:05→15:45)
[2020-09-02] MEDS: INSULIN REGULAR 100 UNIT in SODIUM CHLORIDE 0.9% 100 ML IV SCH ×3 (00:17→15:28)
[2020-09-02 00:25] LABS: Glucose,Whole Blood 150 mg/dL (75-99)
--- NOTE | 2020-09-02 00:33 | PN ---
PROGRESS NOTE DATE OF SERVICE: 09/01/2020 REASON FOR FOLLOWUP: Pneumonia. INTERVAL HISTORY: The patient is currently afebrile. The patient is hemodynamically stable, not on pressor support. FiO2 is currently down to 80%. No significant purulent secretion in the ET or diarrhea reported by nursing staff. Patient was noted to have pneumoperitoneum on the x-ray heart CT has been done which confirmed and Surgery is on the case. PHYSICAL EXAMINATION: Blood pressure 150/69 with pulse of 93, temperature 98.8. He is 95% on 80% FiO2. General description is a middle-aged male, intubated on the vent. RESPIRATORY SYSTEM: Unlabored breathing, decreased breath sounds at the bases. No wheeze. HEART: S1, S2. Regular rate and rhythm. ABDOMEN: Soft, no tenderness. EXTREMITIES: 1+ edema of feet. LABS: Hemoglobin 11.6, white count 22.6. Creatinine is 6.15. DIAGNOSTIC IMPRESSION AND PLAN: Patient with MSSA pneumonia in this patient with initial diagnosis of COVID pneumonia, now with evidence of pneumoperitoneum though no significant focus of a pneumoperitoneum was identified on the CT. We will add Flagyl to cover for the anaerobes associated with a . Continue with cefepime and monitor his clinical course closely. MMODL / IJN: [id number] /
[2020-09-02 02:01] LABS: Glucose,Whole Blood 140 mg/dL (75-99)
[2020-09-02 04:20] LABS: Glucose,Whole Blood 163 mg/dL (75-99)
[2020-09-02 04:21] LABS: HCT 30.8 % (39.0-53.0); HGB 10.4 gm/dL (13.0-17.5); MCH 29.4 pg (25.0-35.0); MCHC 33.8 g/dL (31.0-37.0); MCV 86.9 fL (80.0-100.0); Mean Platelet Volume 8.6; RBC 3.55 m/uL (4.30-5.90); RDW 14.6 % (11.5-15.5); WBC 19.2 k/uL (3.8-10.6)
[2020-09-02 04:31] LABS: Albumin 1.9 g/dL (3.5-5.0); Potassium 4.6 mmol/L (3.5-5.1); Total Bilirubin 0.5 mg/dL (0.2-1.3); Total Protein 4.4 g/dL (6.3-8.2)
[2020-09-02 05:34] LABS: Lymphocytes # (M) 0.38 k/uL (1.0-4.8); Monocytes # (M) 0.96 k/uL (0-1.0); Myelocytes # (M) 0.19 k/uL (0); Myelocytes % 1 %; Neutrophils # (M) 17.66 k/uL (1.3-7.7); Neutrophils % (M) 92 %; Nucleated Red Blood Cells 0 /100 WBC (0-0); Total Cells Counted 200
[2020-09-02 05:35] LABS: Platelet Count 103 k/uL (150-450)
[2020-09-02 05:55] LABS: Glucose,Whole Blood 162 mg/dL (75-99)
[2020-09-02 05:56] LABS: ABG Base Excess -5.3 mmol/L; ABG HCO3 22 mmol/L (21-25); ABG Oxygen Saturation 92.3 % (94-97); ABG PCO2 55 mmHg (35-45); ABG PH 7.22 (7.35-7.45); ABG PO2 81 mmHg (83-108); ABG TCO2 24 mmol/L (19-24); Allen Test Performed? Yes
[2020-09-02 06:55] LABS: C Reactive Protein 43.2 mg/L (<10.0)
[2020-09-02 06:59] LABS: Calcium 6.6 mg/dL (8.4-10.2)
[2020-09-02] MEDS: CISATRACURIUM 200 MG in SODIUM CHLORIDE 0.9% 180 ML IV SCH (07:06)
[2020-09-02] MEDS: SODIUM CHLORIDE 0.9% 1,000 ML IV SCH (07:10)
--- NOTE | 2020-09-02 07:48 | XR ---
EXAMINATION TYPE: XR chest 1V portable DATE OF EXAM: 09/02/2020 COMPARISON: Prior chest x-ray 08/31/2020 HISTORY: Pneumonia TECHNIQUE: Single frontal view of the chest is obtained. FINDINGS: Endotracheal tube and NG tube, bilateral chest tubes are again noted, no sizable pneumotho rax. Bilateral airspace disease is diffuse as on prior exam, there is subcutaneous emphysema noted ov er the neck and chest. Pneumomediastinum changes are present. Heart is stable. IMPRESSION: Diffuse bilateral airspace disease, correlate for ARDS, pneumonia, edema
[2020-09-02] MEDS: CEFEPIME 1 GM in SODIUM CHLORIDE 0.9% 50 ML IVPB SCH ×2 (08:28→20:56)
[2020-09-02] MEDS: FUROSEMIDE 10 MG/ML 10 ML VIAL IV SCH (08:28)
[2020-09-02] MEDS: CHLORHEXIDINE GLUCONATE 15 ML CUP MUCOUS MEM SCH ×2 (08:28→20:56)
[2020-09-02] MEDS: ZINC SULFATE 220 MG CAP PO SCH (08:29)
[2020-09-02] MEDS: ENOXAPARIN 60 MG/0.6 ML SYRINGE SQ SCH (08:29)
[2020-09-02] MEDS: ASCORBIC ACID 500 MG TAB PO SCH (08:29)
[2020-09-02] MEDS: DEXAMETHASONE SOD PHOSPHATE 10 MG/ML 1 ML VIAL IV SCH (08:29)
[2020-09-02] MEDS: FAMOTIDINE 20 MG/2 ML VIAL IV SCH (08:30)
[2020-09-02 08:36] LABS: Glucose,Whole Blood 105 mg/dL (75-99)
[2020-09-02] MEDS: FLUCONAZOLE IN NACL,ISO-OSM 100 MG in SALINE 1 50ML.BAG IVPB SCH (08:37)
--- NOTE | 2020-09-02 08:43 | US ---
EXAMINATION TYPE: US venous doppler duplex LE DATE OF EXAM: 09/02/2020 7:40 AM COMPARISON: NONE CLINICAL HISTORY: r/o dvt. ICU patient. Leg swelling. SIDE PERFORMED: Bilateral TECHNIQUE: The lower extremity deep venous system is examined utilizing real time linear array sonog domingo with graded compression, doppler sonography and color-flow sonography. VESSELS IMAGED: Common Femoral Vein-Right not visualized due to swelling Deep Femoral Vein- Right not visualized due to swelling Greater Saphenous Vein *- Right not visualized due to swelling Femoral Vein Popliteal Vein Small Saphenous Vein * Proximal Calf Veins (* superficial vessels) Subcutaneous edema channels are present. Eccentric low-level internal echoes are noted within the rig ht popliteal vein which is partially occlusive, some color flow is present. Low-level internal echoes also present in the popliteal vein on the left, there is a lack of color flow. Right Leg: Positive for DVT in distal popliteal vein to calf veins Left Leg: Positive for DVT in mid/distal popliteal vein to calf veins IMPRESSION: Bilateral deep venous thrombosis as described A Red level critical message alert has been initiated for Bryan Wood MD via the [employer] on 09/02/2020 8:40 AM. This message alert has been sent to Bryan Wood MD via the preferences provided by the clinician for the receipt of Radiology Critical Findings. Message ID [id number].
[2020-09-02 10:05] LABS: Glucose,Whole Blood 91 mg/dL (75-99)
--- NOTE | 2020-09-02 10:05 | P.PN ---
Subjective Patient is seen in follow-up for acute kidney injury. Creatinine peaked at 6.5 one as of August 31. He was started on hemodialysis for low urine output and volume overload. Urine output 0-15 mL an hour despite IV Lasix. Currently on 80% FiO2. Intubated. Only tolerated 450 mL UF yesterday. Vital signs are stable. Intubated. Regular rhythm noted on the monitor. No distention noted. 2+ edema. Objective - Vital Signs Vital signs: Vital Signs Temp 98.7 F 09/02/20 08:00 Pulse 85 09/02/20 09:00 Resp 34 H 09/02/20 09:00 BP 117/58 09/02/20 09:00 Pulse Ox 91 L 09/02/20 09:00 Intake & Output 09/01/20 09/02/20 09/02/20 18:59 06:59 18:59 Intake Total 2428.516 1622.010 657.412 Output Total 659 80 0 Balance 4257.682 6343.010 657.412 Weight 120.4 kg 121 kg Intake: IV 690 450.0 250 Cefepime 1 gm In Sodium 50 50.0 50 Chloride 0.9% 50 ml @ 12. 5 mls/hr IVPB Q12HR MARJAN Rx#:[id number] Dextrose 5% in Water 1, 250 000 ml @ 50 mls/hr IV . Q23H MARJAN with Sodium Bicarb (1 Meq/ml) 150 ml Rx#:[id number] Fluconazole in NaCl,Iso- 50 50 50 Osm 100 mg In Saline 1 50ml.bag @ 50 mls/hr IVPB DAILY MARJAN Rx#:[id number] Sodium Chloride 0.9% 1, 300 350 150 000 ml @ 50 mls/hr IV . Q20H MARJAN Rx#:[id number] sodium chloride @ 10ml hr 40 Intake, IV Titration 393.516 602.010 287.412 Amount Cisatracurium 200 mg In 200 187.412 Sodium Chloride 0.9% 180 ml @ 1 MCG/KG/MIN 5.994 mls/hr IV .Q24H MARJAN Rx#: [id number] Insulin Regular 100 unit 193.516 102.010 In Sodium Chloride 0.9% 100 ml @ Per Protocol IV .Q0M MARJAN Rx#:[id number] metroNIDAZOLE-NS PMX 500 100 mg In Saline 1 100ml.bag @ 100 mls/hr IVPB Q8HR MARJAN Rx#:[id number] propofoL 1,000 mg In 200 300.000 Empty Bag 1 bag @ Titrate IV .Q0M MARJAN Rx#: [id number] Tube Feeding 85 480 120 Other 1260 90 Output: Chest Tube Drainage 150 Chest Tube Right 0 Chest Tube Right Upper 30 Left Upper Anterior Chest 120 Urine 59 80 0 Hemodialysis 450 Other: Voiding Method Indwelling Catheter Indwelling Catheter Indwelling Catheter # Bowel Movements 1 - Labs CBC & Chem 7: 09/02/20 03:42 09/02/20 03:42 Labs: Abnormal Lab Results - Last 24 Hours (Table) 09/01/20 09/01/20 09/01/20 Range/Units 04:32 10:47 12:10 WBC (3.8-10.6) k/uL RBC (4.30-5.90) m/uL Hgb (13.0-17.5) gm/dL Hct (39.0-53.0) % Plt Count (150-450) k/uL Neutrophils # (Manual) (1.3-7.7) k/uL Lymphocytes # (Manual) (1.0-4.8) k/uL Myelocytes # (Manual) (0) k/uL ABG pH (7.35-7.45) ABG pCO2 (35-45) mmHg ABG pO2 (83-108) mmHg ABG O2 Saturation (94-97) % Sodium (137-145) mmol/L Carbon Dioxide (22-30) mmol/L BUN (9-20) mg/dL Creatinine (0.66-1.25) mg/dL Glucose (74-99) mg/dL POC Glucose (mg/dL) 154 H 133 H (75-99) mg/dL Calcium (8.4-10.2) mg/dL Ferritin 1244.2 H (22.0-322.0) ng/mL Lactate Dehydrogenase (313-618) U/L Creatine Kinase (55-170) U/L C-Reactive Protein (<10.0) mg/L Total Protein (6.3-8.2) g/dL Albumin (3.5-5.0) g/dL 09/01/20 09/01/20 09/01/20 Range/Units 13:26 15:08 16:54 WBC (3.8-10.6) k/uL RBC (4.30-5.90) m/uL Hgb (13.0-17.5) gm/dL Hct (39.0-53.0) % Plt Count (150-450) k/uL Neutrophils # (Manual) (1.3-7.7) k/uL Lymphocytes # (Manual) (1.0-4.8) k/uL Myelocytes # (Manual) (0) k/uL ABG pH (7.35-7.45) ABG pCO2 (35-45) mmHg ABG pO2 (83-108) mmHg ABG O2 Saturation (94-97) % Sodium (137-145) mmol/L Carbon Dioxide (22-30) mmol/L BUN (9-20) mg/dL Creatinine (0.66-1.25) mg/dL Glucose (74-99) mg/dL POC Glucose (mg/dL) 106 H 155 H 158 H (75-99) mg/dL Calcium (8.4-10.2) mg/dL Ferritin (22.0-322.0) ng/mL Lactate Dehydrogenase (313-618) U/L Creatine Kinase (55-170) U/L C-Reactive Protein (<10.0) mg/L Total Protein (6.3-8.2) g/dL Albumin (3.5-5.0) g/dL 09/01/20 09/01/20 09/01/20 Range/Units 18:22 19:18 20:12 WBC (3.8-10.6) k/uL RBC (4.30-5.90) m/uL Hgb (13.0-17.5) gm/dL Hct (39.0-53.0) % Plt Count (150-450) k/uL Neutrophils # (Manual) (1.3-7.7) k/uL Lymphocytes # (Manual) (1.0-4.8) k/uL Myelocytes # (Manual) (0) k/uL ABG pH (7.35-7.45) ABG pCO2 (35-45) mmHg ABG pO2 (83-108) mmHg ABG O2 Saturation (94-97) % Sodium (137-145) mmol/L Carbon Dioxide (22-30) mmol/L BUN (9-20) mg/dL Creatinine (0.66-1.25) mg/dL Glucose (74-99) mg/dL POC Glucose (mg/dL) 128 H 132 H 118 H (75-99) mg/dL Calcium (8.4-10.2) mg/dL Ferritin (22.0-322.0) ng/mL Lactate Dehydrogenase (313-618) U/L Creatine Kinase (55-170) U/L C-Reactive Protein (<10.0) mg/L Total Protein (6.3-8.2) g/dL Albumin (3.5-5.0) g/dL 09/01/20 09/02/20 09/02/20 Range/Units 22:12 00:13 01:59 WBC (3.8-10.6) k/uL RBC (4.30-5.90) m/uL Hgb (13.0-17.5) gm/dL Hct (39.0-53.0) % Plt Count (150-450) k/uL Neutrophils # (Manual) (1.3-7.7) k/uL Lymphocytes # (Manual) (1.0-4.8) k/uL Myelocytes # (Manual) (0) k/uL ABG pH (7.35-7.45) ABG pCO2 (35-45) mmHg ABG pO2 (83-108) mmHg ABG O2 Saturation (94-97) % Sodium (137-145) mmol/L Carbon Dioxide (22-30) mmol/L BUN (9-20) mg/dL Creatinine (0.66-1.25) mg/dL Glucose (74-99) mg/dL POC Glucose (mg/dL) 134 H 150 H 140 H (75-99) mg/dL Calcium (8.4-10.2) mg/dL Ferritin (22.0-322.0) ng/mL Lactate Dehydrogenase (313-618) U/L Creatine Kinase (55-170) U/L C-Reactive Protein (<10.0) mg/L Total Protein (6.3-8.2) g/dL Albumin (3.5-5.0) g/dL 09/02/20 09/02/20 09/02/20 Range/Units 03:42 03:42 04:08 WBC 19.2 H (3.8-10.6) k/uL RBC 3.55 L (4.30-5.90) m/uL Hgb 10.4 L (13.0-17.5) gm/dL Hct 30.8 L (39.0-53.0) % Plt Count 103 L (150-450) k/uL Neutrophils # (Manual) 17.66 H (1.3-7.7) k/uL Lymphocytes # (Manual) 0.38 L (1.0-4.8) k/uL Myelocytes # (Manual) 0.19 H (0) k/uL ABG pH (7.35-7.45) ABG pCO2 (35-45) mmHg ABG pO2 (83-108) mmHg ABG O2 Saturation (94-97) % Sodium 136 L (137-145) mmol/L Carbon Dioxide 18 L (22-30) mmol/L BUN 107 H* (9-20) mg/dL Creatinine 4.85 H (0.66-1.25) mg/dL Glucose 128 H (74-99) mg/dL POC Glucose (mg/dL) 163 H (75-99) mg/dL Calcium 6.6 L (8.4-10.2) mg/dL Ferritin (22.0-322.0) ng/mL Lactate Dehydrogenase 1339 H (313-618) U/L Creatine Kinase 235 H (55-170) U/L C-Reactive Protein 43.2 H (<10.0) mg/L Total Protein 4.4 L (6.3-8.2) g/dL Albumin 1.9 L (3.5-5.0) g/dL 09/02/20 09/02/20 09/02/20 Range/Units 05:46 05:53 08:34 WBC (3.8-10.6) k/uL RBC (4.30-5.90) m/uL Hgb (13.0-17.5) gm/dL Hct (39.0-53.0) % Plt Count (150-450) k/uL Neutrophils # (Manual) (1.3-7.7) k/uL Lymphocytes # (Manual) (1.0-4.8) k/uL Myelocytes # (Manual) (0) k/uL ABG pH 7.22 L (7.35-7.45) ABG pCO2 55 H (35-45) mmHg ABG pO2 81 L (83-108) mmHg ABG O2 Saturation 92.3 L (94-97) % Sodium (137-145) mmol/L Carbon Dioxide (22-30) mmol/L BUN (9-20) mg/dL Creatinine (0.66-1.25) mg/dL Glucose (74-99) mg/dL POC Glucose (mg/dL) 162 H 105 H (75-99) mg/dL Calcium (8.4-10.2) mg/dL Ferritin (22.0-322.0) ng/mL Lactate Dehydrogenase (313-618) U/L Creatine Kinase (55-170) U/L C-Reactive Protein (<10.0) mg/L Total Protein (6.3-8.2) g/dL Albumin (3.5-5.0) g/dL Microbiology - Last 24 Hours (Table) 08/31/20 17:21 Blood Culture - Preliminary Blood No Growth after 24 hours 08/31/20 18:35 Urine Culture - Preliminary Urine,Catheterized Yeast species 09/01/20 06:24 Gram Stain - Preliminary Sputum Sputum Culture - Preliminary Assessment and Plan Plan: Assessment: 1. Acute kidney injury secondary to ATN secondary to vancomycin toxicity and sepsis. Creatinine peaked at 6.51 as of August 31. Started on hemodialysis for low urine output and volume overload. Oliguric. Diuretic unresponsive. 2. Hyperkalemia secondary to acute kidney injury and lisinopril. Improved postdialysis. 3. Acute hypoxic and hypercapnic respiratory failure. 4. Coated 19 pneumonia maintained on steroids and zinc now. 5. Respiratory and metabolic acidosis. 6. Pneumothorax status post bilateral chest tube placement. Plan: Currently seen while undergoing hemodialysis. Continue to assess daily for need for renal replacement therapy. Add oral bicarbonate. Stop IV Lasix. Wean FiO2. Overall prognosis guarded.
--- NOTE | 2020-09-02 10:42 | P.PN ---
Subjective Progress Note Date: 09/02/20 Principal diagnosis: Right spontaneous pneumothorax status post 2 chest tubes Pneumomediastinum Left spontaneous pneumothorax Acute hypoxic respiratory failure Covid 19 pneumonia Type 2 diabetes mellitus Hypertension hypertensive cardiovascular disease Dehydration hypovolemia and hyponatremia Depression 09/02/2020, patient seen eval examined during the rounds labs reviewed medications reviewed, remains sedated on propofol as well as Nimbex, full ventilator support, patient is a 80% oxygen sats are 90%, rate is 34 PEEP is 12, the CAT scan of the lungs consistent with ARDS, patient is getting hemodialysis currently, duplex ultrasound was back positive for bilateral DVT Lovenox increased to 60 mg twice a day, patient continued to have intermittent leak from the right-sided upper chest tube no significant leak is present on bottom 1, no leak has been seen from the left side 1, and cell count remains elevated with stable hemoglobin arterial blood gas shows respiratory acidosis with CO2 55, BUN/creatinine is 107/4.8, prognosis is guarded with likelihood of recovery is poor continue supportive care 09/01/2020, patient seen eval examined care plan discussed with the staff at length, patient remains on 100% oxygen assist control rate of 34 tidal volume of the 500 PEEP of 12, patient had second cycle hemodialysis today 500 mL was removed yesterday 1.5 L was removed, patient was found to have free air in the abdomen by a chest CT, no hollow viscus perforation have been noted, here appears to be thoracic air escaping into the abdominal cavity, patient has m inimal pneumothorax on the right side with a stable chest tube in the pleural space draining air right upper chest tube continued to drain area continuously however lower chest tube intermittently, patient has extensive pneumomediastinum by CAT scan, left-sided pneumothorax significantly improved minimal or no air leak has been present on the left chest tube, white cell count is up to 22,000, ABG slightly improved and better pH is 7.21, potassium is 5.5, BUN/creatinine was up to 133 and 6.5 postdialysis labs are pending, patient is resumed back on tube feed post second dialysis sats have improved to 96% will titrate oxygen down as tolerated to keep saturation over 92%, critical care time spent 40 minutes 08/31/2020, patient seen eval examined during the rounds labs reviewed medications reviewed care plan discussed with the staff at length, remains medically paralyzed with propofol and Nimbex drip, chest tubes is still significantly leaking on the right side lungs are well expanded though, minimum leak is present at the base, cardiothoracic surgery is have recommended to follow it up closely, no active intervention has been recommended, renal function continued to get worse, patient has been getting diuresis with loop diuretics, would recommend to discontinue it patient remains on bicarb drip, along with anticoagulation, when setting remains stable assist control rate of 24 deep of 12 tidal volume 500 with 100% oxygen, saturation is just a 88-90%, continue broad-spectrum antibiotics and supportive care long-term prognosis poor will defer decision about dialysis to the family and renal services 08/30/2020, patient seen eval examined during the rounds medically sedated and paralyzed of propofol and Nimbex, on full ventilator support with assist control rate of 24 EP is 1200% oxygen which has been reduced to 90% now, saturation 91- 92%, bilateral chest tubes are present minimal air leak on the left side, right- sided apical tube still having persistent nearly however distal intermittently, tolerating tube feed well, labs reviewed arterial blood gas reviewed as well al jakob with radiographic findings patient BUN/creatinine continue to go up consistent with acute tubular necrosis likely related to covid 19 sepsis, arterial blood gases revealed pH is 7.18 pCO2 54 pO2 90, patient improved to 5.4, BUN/creatinine up to 132 and 5.86 08/29/2020, patient seen eval examined during the rounds labs reviewed medications reviewed care plan discussed with the staff including RN and respiratory therapy at length, saturation remains borderline however they were 90% in the morning came down to 84% increasing PEEP causes rapid increase in peak air pressure and platue pressure up to 55 and 35, PEEP lowered to 12, patient remains on 100% oxygen with full assist control mode, arterial blood gases reviewed and significant metabolic acidosis appears to be related to acute renal failure, renal services have been consulted, patient appears to have nonoliguric acute renal failure likely acute tubular necrosis, patient remains gently hydrated to feed and given, remains afebrile, white cell count remains on higher side hemoglobin stable, arterial blood gases noted to be to be pH of 7.18 pCO2 53 pO2 70, 1 amp of bicarb along with bicarb drip have been initiated, potassium running on the higher side of 5.8, inflammatory parameters slightly down of thousand today LDH and C-reactive protein remains elevated, sputum for positive for a MSSA, vancomycin has been discontinued which may be contributing to acute kidney injury, patient remains on the propofol as well as Nimbex drip, patient has 2 chest tubes on the right side and one chest tube on the left side due to pneumomediastinum and bilateral pneumothorax they've been aching is minimal on left and right bottom chest tube significant on apical chest tube however 08/28/2020, patient seen eval examined during the rounds labs reviewed medications reviewed, currently patient is on ventilator support PEEP of 10, 90% oxygen, assist control rate of 30, care blood gases reviewed, chest x-ray reviewed, minimal bilateral apical pneumothorax is present, stable left-sided chest U no air leak is present, right-sided apical tube continued to bubble significant air leak, bottom minimal, patient is medically paralyzed with propofol and Nimbex, laboratory data reviewed discussed at length with the staff 08/27/2020, patient seen eval examined during the rounds sedated and medically paralyzed, right-sided chest tube is still significantly and leak upper tube is present no significantly is seen in the 1 and also left side, labs and arterial blood gases reviewed and ventilator adjusted, chest U was stable on chest x-ray, apical very small pneumothorax, 08/26/2020, patient seen eval examined during the rounds labs reviewed medications reviewed, chest tube continue to gently air, patient intubated, on full ventilator support noted evidence of hypercapnia with increase the ventilation C orders, chest x-ray reviewed trace pneumothorax on the apex cannot be excluded, basal bilateral dense infiltrate with mediastinal emphysema, no significant pneumothorax seen, labs reviewed, critical care time 35 minutes 08/25/2020, patient seen eval examined during the rounds labs reviewed medications reviewed care plan discussed with the staff, patient had a respiratory arrest earlier this morning during which he pulled out his BiPAP machine oxygen saturation dropped down into 20s, he also tried to pull out his chest tube, during that process he was intubated, postintubation chest x-ray shows minimal pneumothorax on the right side left-sided pneumothorax or anterior posterior cannot be excluded, extensive pneumomediastinum is present, patient currently and placed on the propofol at 75 mics was very restless and agitated, tachypneic tachycardic and eventually medically paralyzed with Nimbex drip, respiratory status slightly more stable patient is more calm and now hemodynamics stable, has been getting IV fluids, will need a chest tube on the the left side to avoid tension pneumothorax, keep the 2 chest tube on the right side 1 direct towards the apex appears to be stable however one at the base of the lung is still in, dense bilateral infiltrate are present, white cell count is up to 34,000, arterial blood gas and chest x-ray reviewed consistent with respiratory and metabolic acidosis, with severe hypoxia requiring PEEP with high ventilatory rate 08/24/2020, patient seen eval examined during the rounds labs reviewed medications reviewed sitting upright on the bed, remains on BiPAP with 100% oxygen, saturation 95%, patient desaturated into goes on the right side down and intermittently during supine posture, however do better with left side up, and sitting up as well, chest x-ray from today reviewed pneumothorax recurred on the right side in spite of 2 chest tube aiming towards the apex and the base with significant air leak, small left apical pneumothorax however is stable, patient is awaiting evaluation from thoracic surgery for possible VATS or transfer to tertiary care center, left side and INR will put a small bore pigtail catheter at the apex later on this morning, patient remains afebrile slightly tachycardic tachypneic, inflammatory parameters still up, prognosis is guarded care plan discussed directly and indirectly with primary service, staff, cardiothoracic and IR 08/23/2020, patient seen eval reexamined during the rounds labs reviewed medications reviewed, oxygen saturation remained stable, however patient couldn't tolerate off of BiPAP, he remains on BiPAP. All, chest x-ray reviewed, patient hasn't to right-sided chest tube air leak is present from both, left- sided residual small pneumothorax present along with subcutaneous emphysema and mediastinal emphysema, interventional radiology could not do a chest tube on the left side, they are planning to do it tomorrow, white cell count decreased to 19,000, d-dimer is still elevated inflammatory parameters elevated consistent with cytokine nita 08/22/2020, patient seen eval reexamined significant desaturation was more noted, sats dropped down to 55-70% spontaneously comes right back up though cur rently on 93% BiPAP, Semiprone with the right side up patient cannot tolerate airvo, desaturated easily remains tachypneic tachycardic hemodynamic status however remains stable, chest x-ray findings reviewed in spite of right-sided chest tube and persistent air leak there is a persistent spontaneous pneumothorax fairly large on the right side and small apical left sided spontaneous pneumothorax noted with pneumomediastinum and bilateral dense infiltrate at the bases, thoracic surgery has been consulted, patient may need an another chest tube on the right side versus VATS and preferably and of the small chest U was on the left side, will defer to expertise of thoracic surgery, labs reviewed medications reviewed care plan discussed at length with the staff 08/21/2020, patient seen eval examined during the rounds sitting upright in chair breathing slightly better oxygen saturation is 87-88%, patient is on high flow oxygen along with the nonrebreather mass, tachypneic tachycardic blood pr essure is slightly high, patient has a right-sided chest tube is still leaking air, chest x-ray reviewed bilateral infiltrate is present with residual pneumothorax and subcu emphysema, labs from today reviewed white cell count remains elevated 20,000, renal functions stable, will attempt semi-prone with right side up, we will obtain an transfuse convalescent plasma 08/20/2020, patient seen eval examined during the rounds a labs reviewed medications reviewed this morning patient had problems with agitated anxiety and a prehension, oxygen saturation dropped down into 70s, rapid response was called and stat chest x-ray revealed presence of pneumothorax which is significant on the right side as well they may be a small mediastinal emphysema on the left side as well, patient has been made semi-prone with that oxygen saturation 100% nonrebreather mask improved to 92% patient is more calm, he remains afebrile temperature is 98.3 respiratory rate and mid to high 20s, weight is oxygen saturation 94%, chest x-ray finding reviewed 08/19/2020, patient seen eval examined during the rounds labs reviewed medications reviewed care plan discussed, patient is sitting upright on the bed on 100% nonrebreather mask, saturation remains marginal about 88%, remains afebrile, slightly anxious, advised based he hasn't to be on prone position as much as possible, labs reviewed white cell count is 17,000, patient remains on Remdesivir, Decadron, Lovenox August 18 2020, patient seen eval examined during the rounds is still on 5 L high flow oxygen, denies any chest pain breathing difficulties present, denies any cough or sputum production labs chest x-ray reviewed This is a 59-year-old male who has history of diabetes hypertension hypertensive cardiovascular disease and not feeling well for the last 5-6 days with cough and increased shortness of breath started with a sore throat, patient admitted into the hospital was spiking fever up to 101, oxygen saturation 90%, patient already has been started on REM doesn't wear and Decadron, his initial admit x-ray cystoscopy right midlung field and left lower lid feeding infiltrate patient gradually got worse initially has been on room air oxygen requirement keep on going up to 3 L and subsequently on 5 L high flow oxygen with that oxygen satu ration is 93%, critical care time spent 35 minutes Objective - Vital Signs Vital signs: Vital Signs Temp 98.7 F 09/02/20 08:00 Pulse 85 09/02/20 09:00 Resp 34 H 09/02/20 09:00 BP 117/58 09/02/20 09:00 Pulse Ox 91 L 09/02/20 09:00 Intake & Output 09/01/20 09/02/20 09/02/20 18:59 06:59 18:59 Intake Total 2428.516 1622.010 827.405 Output Total 659 80 0 Balance 1157.952 9375.010 827.405 Weight 120.4 kg 121 kg Intake: IV 690 450.0 250 Cefepime 1 gm In Sodium 50 50.0 50 Chloride 0.9% 50 ml @ 12. 5 mls/hr IVPB Q12HR MARJAN Rx#:[id number] Dextrose 5% in Water 1, 250 000 ml @ 50 mls/hr IV . Q23H MARJAN with Sodium Bicarb (1 Meq/ml) 150 ml Rx#:[id number] Fluconazole in NaCl,Iso- 50 50 50 Osm 100 mg In Saline 1 50ml.bag @ 50 mls/hr IVPB DAILY MARJAN Rx#:[id number] Sodium Chloride 0.9% 1, 300 350 150 000 ml @ 50 mls/hr IV . Q20H MARJAN Rx#:[id number] sodium chloride @ 10ml hr 40 Intake, IV Titration 393.516 602.010 457.405 Amount Cisatracurium 200 mg In 200 187.412 Sodium Chloride 0.9% 180 ml @ 1 MCG/KG/MIN 5.994 mls/hr IV .Q24H MARJAN Rx#: [id number] Insulin Regular 100 unit 193.516 102.010 69.993 In Sodium Chloride 0.9% 100 ml @ Per Protocol IV .Q0M MARJAN Rx#:[id number] metroNIDAZOLE-NS PMX 500 100 mg In Saline 1 100ml.bag @ 100 mls/hr IVPB Q8HR [facility]JAN Rx#:[id number] propofoL 1,000 mg In 200 300.000 100 Empty Bag 1 bag @ Titrate IV .Q0M MARJAN Rx#: [id number] Tube Feeding 85 480 120 Other 1260 90 Output: Chest Tube Drainage 150 Chest Tube Right 0 Chest Tube Right Upper 30 Left Upper Anterior Chest 120 Urine 59 80 0 Hemodialysis 450 Other: Voiding Method Indwelling Catheter Indwelling Catheter Indwelling Catheter # Bowel Movements 1 - Exam - Constitutional General appearance: Intubated medically paralyzed on full ventilator support - EENT Eyes: EOMI, PERRLA Ears: bilateral: normal - Neck Neck: normal ROM Carotids: bilateral: upstroke normal Thyroid: bilateral: normal size - Respiratory Respiratory: bilateral: diminished - Cardiovascular Rhythm: regular Heart sounds: normal: S1, S2 - Gastrointestinal General gastrointestinal: normal bowel sounds - Neurologic Neurologic: CNII-XII intact - Musculoskeletal Musculoskeletal: gait normal, generalized weakness, strength equal bilaterally - Psychiatric Psychiatric: Appears, now post medical paralysis - Labs CBC & Chem 7: 09/02/20 03:42 09/02/20 03:42 Labs: Abnormal Lab Results - Last 24 Hours (Table) 09/01/20 09/01/20 09/01/20 Range/Units 10:47 12:10 13:26 WBC (3.8-10.6) k/uL RBC (4.30-5.90) m/uL Hgb (13.0-17.5) gm/dL Hct (39.0-53.0) % Plt Count (150-450) k/uL Neutrophils # (Manual) (1.3-7.7) k/uL Lymphocytes # (Manual) (1.0-4.8) k/uL Myelocytes # (Manual) (0) k/uL ABG pH (7.35-7.45) ABG pCO2 (35-45) mmHg ABG pO2 (83-108) mmHg ABG O2 Saturation (94-97) % Sodium (137-145) mmol/L Carbon Dioxide (22-30) mmol/L BUN (9-20) mg/dL Creatinine (0.66-1.25) mg/dL Glucose (74-99) mg/dL POC Glucose (mg/dL) 154 H 133 H 106 H (75-99) mg/dL Calcium (8.4-10.2) mg/dL Lactate Dehydrogenase (313-618) U/L Creatine Kinase (55-170) U/L C-Reactive Protein (<10.0) mg/L Total Protein (6.3-8.2) g/dL Albumin (3.5-5.0) g/dL 09/01/20 09/01/20 09/01/20 Range/Units 15:08 16:54 18:22 WBC (3.8-10.6) k/uL RBC (4.30-5.90) m/uL Hgb (13.0-17.5) gm/dL Hct (39.0-53.0) % Plt Count (150-450) k/uL Neutrophils # (Manual) (1.3-7.7) k/uL Lymphocytes # (Manual) (1.0-4.8) k/uL Myelocytes # (Manual) (0) k/uL ABG pH (7.35-7.45) ABG pCO2 (35-45) mmHg ABG pO2 (83-108) mmHg ABG O2 Saturation (94-97) % Sodium (137-145) mmol/L Carbon Dioxide (22-30) mmol/L BUN (9-20) mg/dL Creatinine (0.66-1.25) mg/dL Glucose (74-99) mg/dL POC Glucose (mg/dL) 155 H 158 H 128 H (75-99) mg/dL Calcium (8.4-10.2) mg/dL Lactate Dehydrogenase (313-618) U/L Creatine Kinase (55-170) U/L C-Reactive Protein (<10.0) mg/L Total Protein (6.3-8.2) g/dL Albumin (3.5-5.0) g/dL 09/01/20 09/01/20 09/01/20 Range/Units 19:18 20:12 22:12 WBC (3.8-10.6) k/uL RBC (4.30-5.90) m/uL Hgb (13.0-17.5) gm/dL Hct (39.0-53.0) % Plt Count (150-450) k/uL Neutrophils # (Manual) (1.3-7.7) k/uL Lymphocytes # (Manual) (1.0-4.8) k/uL Myelocytes # (Manual) (0) k/uL ABG pH (7.35-7.45) ABG pCO2 (35-45) mmHg ABG pO2 (83-108) mmHg ABG O2 Saturation (94-97) % Sodium (137-145) mmol/L Carbon Dioxide (22-30) mmol/L BUN (9-20) mg/dL Creatinine (0.66-1.25) mg/dL Glucose (74-99) mg/dL POC Glucose (mg/dL) 132 H 118 H 134 H (75-99) mg/dL Calcium (8.4-10.2) mg/dL Lactate Dehydrogenase (313-618) U/L Creatine Kinase (55-170) U/L C-Reactive Protein (<10.0) mg/L Total Protein (6.3-8.2) g/dL Albumin (3.5-5.0) g/dL 09/02/20 09/02/20 09/02/20 Range/Units 00:13 01:59 03:42 WBC 19.2 H (3.8-10.6) k/uL RBC 3.55 L (4.30-5.90) m/uL Hgb 10.4 L (13.0-17.5) gm/dL Hct 30.8 L (39.0-53.0) % Plt Count 103 L (150-450) k/uL Neutrophils # (Manual) 17.66 H (1.3-7.7) k/uL Lymphocytes # (Manual) 0.38 L (1.0-4.8) k/uL Myelocytes # (Manual) 0.19 H (0) k/uL ABG pH (7.35-7.45) ABG pCO2 (35-45) mmHg ABG pO2 (83-108) mmHg ABG O2 Saturation (94-97) % Sodium (137-145) mmol/L Carbon Dioxide (22-30) mmol/L BUN (9-20) mg/dL Creatinine (0.66-1.25) mg/dL Glucose (74-99) mg/dL POC Glucose (mg/dL) 150 H 140 H (75-99) mg/dL Calcium (8.4-10.2) mg/dL Lactate Dehydrogenase (313-618) U/L Creatine Kinase (55-170) U/L C-Reactive Protein (<10.0) mg/L Total Protein (6.3-8.2) g/dL Albumin (3.5-5.0) g/dL 09/02/20 09/02/20 09/02/20 Range/Units 03:42 04:08 05:46 WBC (3.8-10.6) k/uL RBC (4.30-5.90) m/uL Hgb (13.0-17.5) gm/dL Hct (39.0-53.0) % Plt Count (150-450) k/uL Neutrophils # (Manual) (1.3-7.7) k/uL Lymphocytes # (Manual) (1.0-4.8) k/uL Myelocytes # (Manual) (0) k/uL ABG pH 7.22 L (7.35-7.45) ABG pCO2 55 H (35-45) mmHg ABG pO2 81 L (83-108) mmHg ABG O2 Saturation 92.3 L (94-97) % Sodium 136 L (137-145) mmol/L Carbon Dioxide 18 L (22-30) mmol/L BUN 107 H* (9-20) mg/dL Creatinine 4.85 H (0.66-1.25) mg/dL Glucose 128 H (74-99) mg/dL POC Glucose (mg/dL) 163 H (75-99) mg/dL Calcium 6.6 L (8.4-10.2) mg/dL Lactate Dehydrogenase 1339 H (313-618) U/L Creatine Kinase 235 H (55-170) U/L C-Reactive Protein 43.2 H (<10.0) mg/L Total Protein 4.4 L (6.3-8.2) g/dL Albumin 1.9 L (3.5-5.0) g/dL 09/02/20 09/02/20 Range/Units 05:53 08:34 WBC (3.8-10.6) k/uL RBC (4.30-5.90) m/uL Hgb (13.0-17.5) gm/dL Hct (39.0-53.0) % Plt Count (150-450) k/uL Neutrophils # (Manual) (1.3-7.7) k/uL Lymphocytes # (Manual) (1.0-4.8) k/uL Myelocytes # (Manual) (0) k/uL ABG pH (7.35-7.45) ABG pCO2 (35-45) mmHg ABG pO2 (83-108) mmHg ABG O2 Saturation (94-97) % Sodium (137-145) mmol/L Carbon Dioxide (22-30) mmol/L BUN (9-20) mg/dL Creatinine (0.66-1.25) mg/dL Glucose (74-99) mg/dL POC Glucose (mg/dL) 162 H 105 H (75-99) mg/dL Calcium (8.4-10.2) mg/dL Lactate Dehydrogenase (313-618) U/L Creatine Kinase (55-170) U/L C-Reactive Protein (<10.0) mg/L Total Protein (6.3-8.2) g/dL Albumin (3.5-5.0) g/dL Microbiology - Last 24 Hours (Table) 08/31/20 17:21 Blood Culture - Preliminary Blood No Growth after 24 hours 08/31/20 18:35 Urine Culture - Preliminary Urine,Catheterized Yeast species 09/01/20 06:24 Gram Stain - Preliminary Sputum Sputum Culture - Preliminary Assessment and Plan Assessment: Acute hypoxic and hypercapnic respiratory failure Status post respiratory arrest patient intubated on full ventilator support lung protective strategy MSSA pneumonia Acute kidney injury likely related to acute tubular necrosis as well as vancomycin associated renal damage on daily dialysis Right spontaneous pneumothorax in spite of right-sided double chest tube persistent air leak cardiothoracic surgery have no new recommendations and they signed off Anterior posterior pneumothorax on the left side status post left-sided chest tube was stable no air leak is present Extensive Pneumomediastinum Free air in the abdomen due to mediastinal emphysema and pneumothorax Acute hypoxic respiratory failure Covid 19 pneumonia Type 2 diabetes mellitus Hypertension hypertensive cardiovascular disease Dehydration hypovolemia and hyponatremia Depression Overall prognosis is very poor Plan: Ventilator support adjustment as needed Lovenox 60 mg every 12 hourly Chest tube assessment and plan for bilateral pneumothoraces and pn eumomediastinum as above, continue suction 40 cm water on the right side 20 cm water and left side dialysis is in progress Hemodialysis as per renal services Monitor renal output closely Continue antihypertensive agent from home Continue to follow sugars closely Observe off of vancomycin, continue cefepime adjusted for renal failure Ventilator adjustment as needed and adjustment of PEEP as noted above Status post Convalescent plasma Continue Decadron and status post IV Remdesivir for 5 days respectively Further plan of care as per clinical response of the patient, overall prognosis is guarded Time with Patient: Greater than 30
--- NOTE | 2020-09-02 10:47 | P.PN ---
Subjective Progress Note Date: 09/02/20 CHIEF COMPLAINT: Free air noted on CT of chest HISTORY OF PRESENT ILLNESS: This is a 59-year-old male who is admitted to the hospital for Covid 19 pneumonitis and sepsis. Patient continues decline with an tibiotic treatment. He developed bilateral spontaneous pneumothorax with pneumomediastinum and subcutaneous emphysema. He had chest tubes placed. And did require to be intubated. He is currently in the ICU intubated and sedated. He developed acute kidney injury during this admission and did require to be started on hemodialysis. Patient had a computed tomography scan of the chest showing diffuse soft tissue emphysema and bilateral chest wall with extension into the mediastinum. Free air in the upper abdomen. Computed tomography scan of the abdomen had confirmed pneumoperitoneum. Patient remains intubated and sedated. He is getting hemodialysis today. Venous Dopplers were positive for lower extremity DVT bilaterally. Lovenox was adjusted. Patient is afebrile. WBC is 19.2 PHYSICAL EXAM: VITAL SIGNS: Reviewed. GENERAL: Well-developed in no acute distress. HEENT: No sclera icterus. Extraocular movements grossly intact. Moist buccal mucosa. Head is atraumatic, normocephalic. ABDOMEN: Soft. Nondistended. Nontender. NEUROLOGIC: Alert and oriented. Cranial nerves II through XII grossly intact. ASSESSMENT: 1. Confirmed pneumoperitoneum on computed tomography scan of the abdomen. This is likely related to patient's pneumothorax 2. Covid 19 infection 3. Bilateral pneumothoraces status post bilateral chest tube placement 4. Acute kidney injury secondary to ATN and vancomycin toxicity. Patient has been started on hemodialysis 5. 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 Signing provider agrees with the documented findings, assessment, and plan of care. Objective - Vital Signs Vital signs: Vital Signs Temp 98.7 F 09/02/20 08:00 Pulse 85 09/02/20 09:00 Resp 34 H 09/02/20 09:00 BP 117/58 09/02/20 09:00 Pulse Ox 91 L 09/02/20 09:00 Intake & Output 09/01/20 09/02/20 09/02/20 18:59 06:59 18:59 Intake Total 2428.516 1622.010 827.405 Output Total 659 80 0 Balance 6569.937 3084.010 827.405 Weight 120.4 kg 121 kg Intake: IV 690 450.0 250 Cefepime 1 gm In Sodium 50 50.0 50 Chloride 0.9% 50 ml @ 12. 5 mls/hr IVPB Q12HR [facility] Rx#:[id number] Dextrose 5% in Water 1, 250 000 ml @ 50 mls/hr IV . Q23H MARJAN with Sodium Bicarb (1 Meq/ml) 150 ml Rx#:[id number] Fluconazole in NaCl,Iso- 50 50 50 Osm 100 mg In Saline 1 50ml.bag @ 50 mls/hr IVPB DAILY [facility] Rx#:[id number] Sodium Chloride 0.9% 1, 300 350 150 000 ml @ 50 mls/hr IV . Q20H [facility] Rx#:[id number] sodium chloride @ 10ml hr 40 Intake, IV Titration 393.516 602.010 457.405 Amount Cisatracurium 200 mg In 200 187.412 Sodium Chloride 0.9% 180 ml @ 1 MCG/KG/MIN 5.994 mls/hr IV .Q24H [facility] Rx#: [id number] Insulin Regular 100 unit 193.516 102.010 69.993 In Sodium Chloride 0.9% 100 ml @ Per Protocol IV .Q0M [facility] Rx#:[id number] metroNIDAZOLE-NS PMX 500 100 mg In Saline 1 100ml.bag @ 100 mls/hr IVPB Q8HR [facility] Rx#:[id number] propofoL 1,000 mg In 200 300.000 100 Empty Bag 1 bag @ Titrate IV .Q0M [facility] Rx#: [id number] Tube Feeding 85 480 120 Other 1260 90 Output: Chest Tube Drainage 150 Chest Tube Right 0 Chest Tube Right Upper 30 Left Upper Anterior Chest 120 Urine 59 80 0 Hemodialysis 450 Other: Voiding Method Indwelling Catheter Indwelling Catheter Indwelling Catheter # Bowel Movements 1 - Labs CBC & Chem 7: 09/02/20 03:42 09/02/20 03:42 Labs: Abnormal Lab Results - Last 24 Hours (Table) 09/01/20 09/01/20 09/01/20 Range/Units 10:47 12:10 13:26 WBC (3.8-10.6) k/uL RBC (4.30-5.90) m/uL Hgb (13.0-17.5) gm/dL Hct (39.0-53.0) % Plt Count (150-450) k/uL Neutrophils # (Manual) (1.3-7.7) k/uL Lymphocytes # (Manual) (1.0-4.8) k/uL Myelocytes # (Manual) (0) k/uL ABG pH (7.35-7.45) ABG pCO2 (35-45) mmHg ABG pO2 (83-108) mmHg ABG O2 Saturation (94-97) % Sodium (137-145) mmol/L Carbon Dioxide (22-30) mmol/L BUN (9-20) mg/dL Creatinine (0.66-1.25) mg/dL Glucose (74-99) mg/dL POC Glucose (mg/dL) 154 H 133 H 106 H (75-99) mg/dL Calcium (8.4-10.2) mg/dL Lactate Dehydrogenase (313-618) U/L Creatine Kinase (55-170) U/L C-Reactive Protein (<10.0) mg/L Total Protein (6.3-8.2) g/dL Albumin (3.5-5.0) g/dL 09/01/20 09/01/20 09/01/20 Range/Units 15:08 16:54 18:22 WBC (3.8-10.6) k/uL RBC (4.30-5.90) m/uL Hgb (13.0-17.5) gm/dL Hct (39.0-53.0) % Plt Count (150-450) k/uL Neutrophils # (Manual) (1.3-7.7) k/uL Lymphocytes # (Manual) (1.0-4.8) k/uL Myelocytes # (Manual) (0) k/uL ABG pH (7.35-7.45) ABG pCO2 (35-45) mmHg ABG pO2 (83-108) mmHg ABG O2 Saturation (94-97) % Sodium (137-145) mmol/L Carbon Dioxide (22-30) mmol/L BUN (9-20) mg/dL Creatinine (0.66-1.25) mg/dL Glucose (74-99) mg/dL POC Glucose (mg/dL) 155 H 158 H 128 H (75-99) mg/dL Calcium (8.4-10.2) mg/dL Lactate Dehydrogenase (313-618) U/L Creatine Kinase (55-170) U/L C-Reactive Protein (<10.0) mg/L Total Protein (6.3-8.2) g/dL Albumin (3.5-5.0) g/dL 09/01/20 09/01/20 09/01/20 Range/Units 19:18 20:12 22:12 WBC (3.8-10.6) k/uL RBC (4.30-5.90) m/uL Hgb (13.0-17.5) gm/dL Hct (39.0-53.0) % Plt Count (150-450) k/uL Neutrophils # (Manual) (1.3-7.7) k/uL Lymphocytes # (Manual) (1.0-4.8) k/uL Myelocytes # (Manual) (0) k/uL ABG pH (7.35-7.45) ABG pCO2 (35-45) mmHg ABG pO2 (83-108) mmHg ABG O2 Saturation (94-97) % Sodium (137-145) mmol/L Carbon Dioxide (22-30) mmol/L BUN (9-20) mg/dL Creatinine (0.66-1.25) mg/dL Glucose (74-99) mg/dL POC Glucose (mg/dL) 132 H 118 H 134 H (75-99) mg/dL Calcium (8.4-10.2) mg/dL Lactate Dehydrogenase (313-618) U/L Creatine Kinase (55-170) U/L C-Reactive Protein (<10.0) mg/L Total Protein (6.3-8.2) g/dL Albumin (3.5-5.0) g/dL 09/02/20 09/02/20 09/02/20 Range/Units 00:13 01:59 03:42 WBC 19.2 H (3.8-10.6) k/uL RBC 3.55 L (4.30-5.90) m/uL Hgb 10.4 L (13.0-17.5) gm/dL Hct 30.8 L (39.0-53.0) % Plt Count 103 L (150-450) k/uL Neutrophils # (Manual) 17.66 H (1.3-7.7) k/uL Lymphocytes # (Manual) 0.38 L (1.0-4.8) k/uL Myelocytes # (Manual) 0.19 H (0) k/uL ABG pH (7.35-7.45) ABG pCO2 (35-45) mmHg ABG pO2 (83-108) mmHg ABG O2 Saturation (94-97) % Sodium (137-145) mmol/L Carbon Dioxide (22-30) mmol/L BUN (9-20) mg/dL Creatinine (0.66-1.25) mg/dL Glucose (74-99) mg/dL POC Glucose (mg/dL) 150 H 140 H (75-99) mg/dL Calcium (8.4-10.2) mg/dL Lactate Dehydrogenase (313-618) U/L Creatine Kinase (55-170) U/L C-Reactive Protein (<10.0) mg/L Total Protein (6.3-8.2) g/dL Albumin (3.5-5.0) g/dL 09/02/20 09/02/20 09/02/20 Range/Units 03:42 04:08 05:46 WBC (3.8-10.6) k/uL RBC (4.30-5.90) m/uL Hgb (13.0-17.5) gm/dL Hct (39.0-53.0) % Plt Count (150-450) k/uL Neutrophils # (Manual) (1.3-7.7) k/uL Lymphocytes # (Manual) (1.0-4.8) k/uL Myelocytes # (Manual) (0) k/uL ABG pH 7.22 L (7.35-7.45) ABG pCO2 55 H (35-45) mmHg ABG pO2 81 L (83-108) mmHg ABG O2 Saturation 92.3 L (94-97) % Sodium 136 L (137-145) mmol/L Carbon Dioxide 18 L (22-30) mmol/L BUN 107 H* (9-20) mg/dL Creatinine 4.85 H (0.66-1.25) mg/dL Glucose 128 H (74-99) mg/dL POC Glucose (mg/dL) 163 H (75-99) mg/dL Calcium 6.6 L (8.4-10.2) mg/dL Lactate Dehydrogenase 1339 H (313-618) U/L Creatine Kinase 235 H (55-170) U/L C-Reactive Protein 43.2 H (<10.0) mg/L Total Protein 4.4 L (6.3-8.2) g/dL Albumin 1.9 L (3.5-5.0) g/dL 09/02/20 09/02/20 Range/Units 05:53 08:34 WBC (3.8-10.6) k/uL RBC (4.30-5.90) m/uL Hgb (13.0-17.5) gm/dL Hct (39.0-53.0) % Plt Count (150-450) k/uL Neutrophils # (Manual) (1.3-7.7) k/uL Lymphocytes # (Manual) (1.0-4.8) k/uL Myelocytes # (Manual) (0) k/uL ABG pH (7.35-7.45) ABG pCO2 (35-45) mmHg ABG pO2 (83-108) mmHg ABG O2 Saturation (94-97) % Sodium (137-145) mmol/L Carbon Dioxide (22-30) mmol/L BUN (9-20) mg/dL Creatinine (0.66-1.25) mg/dL Glucose (74-99) mg/dL POC Glucose (mg/dL) 162 H 105 H (75-99) mg/dL Calcium (8.4-10.2) mg/dL Lactate Dehydrogenase (313-618) U/L Creatine Kinase (55-170) U/L C-Reactive Protein (<10.0) mg/L Total Protein (6.3-8.2) g/dL Albumin (3.5-5.0) g/dL Microbiology - Last 24 Hours (Table) 08/31/20 17:21 Blood Culture - Preliminary Blood No Growth after 24 hours 08/31/20 18:35 Urine Culture - Preliminary Urine,Catheterized Yeast species 09/01/20 06:24 Gram Stain - Preliminary Sputum Sputum Culture - Preliminary
[2020-09-02] MEDS ORDERED: HEPARIN SODIUM,PORCINE 5,000 UNIT/ML 1 ML VIAL IV PRN (11:07)
[2020-09-02] MEDS ORDERED: HEPARIN SODIUM,PORCINE 10,000 UNIT/ML 1 ML VIAL IV ONE (11:07)
[2020-09-02 11:24] LABS: Ferritin 1543.1 ng/mL (22.0-322.0)
[2020-09-02 12:14] LABS: Glucose,Whole Blood 149 mg/dL (75-99)
[2020-09-02] MEDS: SODIUM BICARBONATE TAB 650 MG TAB PO SCH ×3 (12:28→20:57)
[2020-09-02 13:14] LABS: Partial Thromboplastin Time 28.3 sec (22.0-30.0); Prothrombin Time 10.2 sec (9.0-12.0)
[2020-09-02 13:48] LABS: HCT 32.1 % (39.0-53.0); HGB 10.7 gm/dL (13.0-17.5); MCH 29.2 pg (25.0-35.0); MCHC 33.3 g/dL (31.0-37.0); MCV 87.9 fL (80.0-100.0); Mean Platelet Volume 8.4; RBC 3.65 m/uL (4.30-5.90); RDW 14.6 % (11.5-15.5); WBC 18.1 k/uL (3.8-10.6)
[2020-09-02 14:39] LABS: Glucose,Whole Blood 145 mg/dL (75-99)
[2020-09-02 14:43] LABS: Band Neutrophils % 1 %; Eosinophils # (M) 0.18 k/uL (0-0.7); Lymphocytes # (M) 0.72 k/uL (1.0-4.8); Metamyelocytes # (M) 0.18 k/uL (0); Metamyelocytes % 1 %; Monocytes # (M) 0.54 k/uL (0-1.0); Myelocytes # (M) 0.36 k/uL (0); Myelocytes % 2 %; Neutrophils % (M) 90 %; Nucleated Red Blood Cells 0 /100 WBC (0-0); Total Cells Counted 200
[2020-09-02 15:50] LABS: Glucose,Whole Blood 133 mg/dL (75-99)
[2020-09-02] MEDS: HEPARIN SOD,PORK IN 0.45% NACL 25,000 UNIT in 0.45% NACL 1 250ML.BAG IV SCH (16:58)
[2020-09-02 18:11] LABS: Glucose,Whole Blood 97 mg/dL (75-99)
[2020-09-02] MEDS: ASPIRIN 81 MG PO SCH (20:57)
[2020-09-02] MEDS ORDERED: ENOXAPARIN 60 MG/0.6 ML SYRINGE SQ SCH (21:00)
[2020-09-02 21:22] LABS: Glucose,Whole Blood 128 mg/dL (75-99)
[2020-09-02 22:24] LABS: Glucose,Whole Blood 142 mg/dL (75-99)
--- NOTE | 2020-09-02 22:55 | P.PN ---
Subjective Progress Note Date: 09/02/20 Covid 19 infection/pneumonia Vent dependent respiratory failure secondary to 1 Bilateral pneumothorax; status post chest tube placement 53-year-old male patient admitted for COVID-19 pneumonitis/sepsis; patient declined despite antibiotic therapy and treatment with high flow oxygen per nasal cannula and developed bilateral spontaneous pneumothorax with pneumomediastinum and subcutaneous emphysema for which he underwent chest tube placement; patient's respiratory status continued to deteriorate and he was ultimately intubated Patient remains in ICU intubated and mechanically ventilated 08/29/2020 patient seen seen and evaluated at bedside; remains intubated and mechanically ventilated;, saturation remains borderline however they were 90% in the morning came down to 84%; patient remains on 100% oxygen; arterial blood gases reviewed; metabolic acidosis appears to be related to acute renal failure; nephrology has been consulted by the materials director for nonoliguric acute renal failure likely acute tubular necrosis; patient remains on gentle IV fluid hydration; received 1 amp of bicarb with bicarbonate drip; inflammatory markers are slightly improved; CRP remains elevated; sputum is positive for MSSA and vancomycin has been discontinued patient has 2 chest tubes on the right side and one chest tube on the left side due to pneumomediastinum and bilateral pneumothorax they've been aching is minimal on left and right bottom chest tube significant on apical chest tube however 08/30/2020, patient remains in ICU; medically sedated and paralyzed of propofol and Nimbex, on full ventilator support; saturation 91-92% bilateral chest tubes are present minimal air leak on the left side, right-sided apical tube still having persistent air leak, tolerating tube feed well labs reviewed arterial blood gas reviewed as well along with radiographic findings patient BUN/creatinine continue to go up consistent with acute tubular necrosis likely related to covid 19 sepsis, up to 132 and 5.86 08/31/2020 Patient is seen and evaluated in follow up and currently remains in the ICU and being closely monitored. Patient remains on the mechanical ventilator and currently sedated. Multiple medical consultations following. Nephrology following and has consulted vascular surgery for temporary cath placement for hemodialysis as the BUN/CR continue to worsen. Creatinine today is 6.51 with a BUN of 149. CT chest was ordered and currently pending as patient continues to remain on the vent and also continues to have 2 chest tubes on the right with one on the left. Continued air leak present on the right. a 2D echo was ordered as well. Will repeat am labs and continue to monitor the patient closely. Review of systems: Unable to obtain as patient is intubated and sedated 09/01/2020 Patient is seen in follow-up and currently remains closely monitored in the ICU. Multiple medical consultations following. CT chest was done showing diffuse soft tissue emphysema in the bilateral chest wall with extension into the m ediastinum along with free air in the upper abdomen, mild right pneumothorax less than 20%, pulmonary edema and pleural effusions with bibasilar atelectasis. Surgery was consulted and has ordered a CT of the abdomen and pelvis. Patient currently receiving hemodialysis as an emergent temporary cath was placed yesterday with vascular surgery. Per dialysis nurse patient was able to tolerate approximately 1-1/2 L removal yesterday and today is having hypotension with dialysis. White blood count remains elevated at 22.6, current hemoglobin is 11.6. Sodium is 135 and potassium is 5.5. BUN is 133 and creatinine slightly improved at 6.15. Patient remains on a mechanical ventilator with an FiO2 of 90%. Patient is afebrile. Patient is edematous of bilateral upper and lower extremities. Patient on IV Lasix 60 mg twice daily. Prognosis is extremely poor and guarded. 09/02/2020 Patient currently remains in the ICU being closely monitored. Patient underwent doppler study of the lower extremities and patient is positive for bilateral DVTs and had been on Lovenox. Patient will be initiated on heparin drip and will monitor closely. Patient has also been continued on Cefepime and flagyl has been added as CT of the abdomen pelvis shows confirmed pneumoperitoneum. Surgery following although no surgical interventions planned at this time. Patient currently receiving hemodialysis with goal to remove 1 liter. Patient remains off pressor support at this time. Patient continues to be sedated. Multiple medical consultations following. Prognosis remains extremely guarded. Review of systems: Unable to obtain as patient remains intubated and sedated Active Medications Acetaminophen (Acetaminophen Tab 500 Mg Tab) 1,000 mg PO Q6HR PRN PRN Reason: Fever and/ or Pain Last Admin: 08/21/20 10:19 Dose: 1,000 mg Documented by: Ascorbic Acid (Ascorbic Acid 500 Mg Tab) 1,000 mg PO DAILY [facility] Last Admin: 09/02/20 08:29 Dose: 1,000 mg Documented by: Aspirin (Aspirin 81 Mg) 81 mg PO HS [facility] Last Admin: 09/02/20 20:57 Dose: 81 mg Documented by: Chlorhexidine Gluconate (Chlorhexidine Gluconate 15 Ml Cup) 15 ml MUCOUS MEM BID [facility] Last Admin: 09/02/20 20:56 Dose: 15 ml Documented by: Dexamethasone Sodium Phosphate (Dexamethasone Sod Phosphate 10 Mg/Ml 1 Ml Vial) 6 mg IV DAILY [facility] Last Admin: 09/02/20 08:29 Dose: 6 mg Documented by: Famotidine (Famotidine 20 Mg/2 Ml Vial) 20 mg IV DAILY [facility] Last Admin: 09/02/20 08:30 Dose: 20 mg Documented by: Heparin Sodium (Porcine) (Heparin Sodium,Porcine 5,000 Unit/Ml 1 Ml Vial) 0 unit IV PER PROTOCOL PRN; Protocol PRN Reason: Low PTT Hydromorphone HCl (Hydromorphone 1 Mg/Ml 1 Ml Syringe) 1 mg IVP Q2HR PRN PRN Reason: Pain Last Admin: 08/26/20 04:12 Dose: 1 mg Documented by: Propofol 1,000 mg/ IV Solution 100 mls @ 0 mls/hr IV .Q0M [facility]; Protocol Last Admin: 09/02/20 22:09 Dose: 55 mcg/kg/min, 39.93 mls/hr Documented by: Cisatracurium Besylate 200 mg/ (Sodium Chloride) 200 mls @ 5.994 mls/hr IV .Q24H [facility]; Protocol Last Titration: 09/02/20 12:37 Dose: 0 mcg/kg/min, 0 mls/hr Documented by: Insulin Human Regular 100 unit (/ Sodium Chloride) 101 mls @ 0 mls/hr IV .Q0M [facility]; Protocol Last Titration: 09/02/20 22:13 Dose: 18 units/hr, 18.18 mls/hr Documented by: Cefepime HCl 1 gm/ Sodium (Chloride) 50 mls @ 12.5 mls/hr IVPB Q12HR [facility] Last Admin: 09/02/20 20:56 Dose: 12.5 mls/hr Documented by: Fluconazole/Sodium Chloride (100 mg/ IV Solution) 50 mls @ 50 mls/hr IVPB DAILY [facility] Last Admin: 09/02/20 08:37 Dose: 50 mls/hr Documented by: Metronidazole 500 mg/ IV (Solution) 100 mls @ 100 mls/hr IVPB Q8HR [facility] Last Admin: 09/02/20 15:45 Dose: 100 mls/hr Documented by: Heparin Sodium/Sodium Chloride (25,000 unit/ Sodium Chloride) 250 mls @ 21.78 mls/hr IV .[id number] [facility]; Protocol Last Admin: 09/02/20 16:58 Dose: 18 units/kg/hr, 21.78 mls/hr Documented by: Lorazepam (Lorazepam 2 Mg/Ml Inj) 0.5 mg IV Q4HR PRN PRN Reason: Anxiety Last Admin: 08/25/20 08:13 Dose: 0.5 mg Documented by: Miscellaneous Information (Pneumonia Protocol Utilized 1 Each Misc) 1 each PO ONCE PRN PRN Reason: Per Protocol Sodium Bicarbonate (Sodium Bicarbonate Tab 650 Mg Tab) 650 mg PO TID [facility] Last Admin: 09/02/20 20:57 Dose: 650 mg Documented by: Zinc Sulfate (Zinc Sulfate 220 Mg Cap) 220 mg PO DAILY [facility] Last Admin: 09/02/20 08:29 Dose: 220 mg Documented by: Objective - Vital Signs Vital signs: Vital Signs Temp 98.0 F 09/02/20 12:28 Pulse 91 09/02/20 12:28 Resp 34 H 09/02/20 12:28 BP 121/62 09/02/20 12:28 Pulse Ox 91 L 09/02/20 09:00 Intake & Output 09/01/20 09/02/20 09/02/20 18:59 06:59 18:59 Intake Total 2428.516 9567.517 8783.769 Output Total 829 70 1067 Balance 1894.956 3752.010 -451.231 Weight 120.4 kg 121 kg Intake: IV 690 450.0 250 Cefepime 1 gm In Sodium 50 50.0 50 Chloride 0.9% 50 ml @ 12. 5 mls/hr IVPB Q12HR [facility] Rx#:[id number] Dextrose 5% in Water 1, 250 000 ml @ 50 mls/hr IV . Q23H [facility] with Sodium Bicarb (1 Meq/ml) 150 ml Rx#:[id number] Fluconazole in NaCl,Iso- 50 50 50 Osm 100 mg In Saline 1 50ml.bag @ 50 mls/hr IVPB DAILY [facility] Rx#:[id number] Sodium Chloride 0.9% 1, 300 350 150 000 ml @ 50 mls/hr IV . Q20H [facility] Rx#:[id number] sodium chloride @ 10ml hr 40 Intake, IV Titration 393.516 602.010 678.769 Amount Cisatracurium 200 mg In 200 319.680 Sodium Chloride 0.9% 180 ml @ 1 MCG/KG/MIN 5.994 mls/hr IV .Q24H [facility] Rx#: [id number] Insulin Regular 100 unit 193.516 102.010 69.993 In Sodium Chloride 0.9% 100 ml @ Per Protocol IV .Q0M [facility] Rx#:[id number] metroNIDAZOLE-NS PMX 500 100 mg In Saline 1 100ml.bag @ 100 mls/hr IVPB Q8HR [facility] Rx#:[id number] propofoL 1,000 mg In 200 300.000 189.096 Empty Bag 1 bag @ Titrate IV .Q0M [facility] Rx#: [id number] Tube Feeding 85 480 120 Other 1260 90 Output: Chest Tube Drainage 150 Chest Tube Right 0 Chest Tube Right Upper 30 Left Upper Anterior Chest 120 Urine 59 80 0 Hemodialysis 450 1500 Other: Voiding Method Indwelling Catheter Indwelling Catheter Indwelling Catheter # Bowel Movements 1 - Exam GENERAL: The patient is intubated and sedated and appears to be in no acute distress. Temp is 98.0F, pulse is 91, respirations are 34, blood pressure is 121/62, oxygen saturation is 94% on mechanical vent. HEENT: Pupils are round and equally reacting to light. EOMI. No scleral icterus. No conjunctival pallor. Normocephalic, atraumatic. No pharyngeal erythema. No thyromegaly. ET tube noted CARDIOVASCULAR: S1 and S2 muffled. No murmurs, rubs, or gallops. PULMONARY: Bilateral scattered rhonchi, no wheezing noted diminished air entry bilaterally, tachypneic, 2 chest tubes noted on the right side and one on the left ABDOMEN: Soft, nontender, nondistended, normoactive bowel sounds. No palpable organomegaly. MUSCULOSKELETAL: No joint swelling or deformity. EXTREMITIES: No cyanosis, clubbing, or pedal edema. Bilateral upper and lower extremity edema noted on exam NEUROLOGICAL: Unable to fully assess as patient is intubated and sedated SKIN: No rashes. Note: Because of COVID 19 isolation, some of the history and physical exam findings are indirect and obtained from nursing staff, and other physician examinations to avoid unnecessary contact with the patient. - Labs CBC & Chem 7: 09/02/20 12:44 09/02/20 03:42 Labs: Abnormal Lab Results - Last 24 Hours (Table) 09/01/20 09/01/20 09/01/20 Range/Units 13:26 15:08 16:54 WBC (3.8-10.6) k/uL RBC (4.30-5.90) m/uL Hgb (13.0-17.5) gm/dL Hct (39.0-53.0) % Plt Count (150-450) k/uL Neutrophils # (Manual) (1.3-7.7) k/uL Lymphocytes # (Manual) (1.0-4.8) k/uL Myelocytes # (Manual) (0) k/uL ABG pH (7.35-7.45) ABG pCO2 (35-45) mmHg ABG pO2 (83-108) mmHg ABG O2 Saturation (94-97) % Sodium (137-145) mmol/L Carbon Dioxide (22-30) mmol/L BUN (9-20) mg/dL Creatinine (0.66-1.25) mg/dL Glucose (74-99) mg/dL POC Glucose (mg/dL) 106 H 155 H 158 H (75-99) mg/dL Calcium (8.4-10.2) mg/dL Ferritin (22.0-322.0) ng/mL Lactate Dehydrogenase (313-618) U/L Creatine Kinase (55-170) U/L C-Reactive Protein (<10.0) mg/L Total Protein (6.3-8.2) g/dL Albumin (3.5-5.0) g/dL 09/01/20 09/01/20 09/01/20 Range/Units 18:22 19:18 20:12 WBC (3.8-10.6) k/uL RBC (4.30-5.90) m/uL Hgb (13.0-17.5) gm/dL Hct (39.0-53.0) % Plt Count (150-450) k/uL Neutrophils # (Manual) (1.3-7.7) k/uL Lymphocytes # (Manual) (1.0-4.8) k/uL Myelocytes # (Manual) (0) k/uL ABG pH (7.35-7.45) ABG pCO2 (35-45) mmHg ABG pO2 (83-108) mmHg ABG O2 Saturation (94-97) % Sodium (137-145) mmol/L Carbon Dioxide (22-30) mmol/L BUN (9-20) mg/dL Creatinine (0.66-1.25) mg/dL Glucose (74-99) mg/dL POC Glucose (mg/dL) 128 H 132 H 118 H (75-99) mg/dL Calcium (8.4-10.2) mg/dL Ferritin (22.0-322.0) ng/mL Lactate Dehydrogenase (313-618) U/L Creatine Kinase (55-170) U/L C-Reactive Protein (<10.0) mg/L Total Protein (6.3-8.2) g/dL Albumin (3.5-5.0) g/dL 09/01/20 09/02/20 09/02/20 Range/Units 22:12 00:13 01:59 WBC (3.8-10.6) k/uL RBC (4.30-5.90) m/uL Hgb (13.0-17.5) gm/dL Hct (39.0-53.0) % Plt Count (150-450) k/uL Neutrophils # (Manual) (1.3-7.7) k/uL Lymphocytes # (Manual) (1.0-4.8) k/uL Myelocytes # (Manual) (0) k/uL ABG pH (7.35-7.45) ABG pCO2 (35-45) mmHg ABG pO2 (83-108) mmHg ABG O2 Saturation (94-97) % Sodium (137-145) mmol/L Carbon Dioxide (22-30) mmol/L BUN (9-20) mg/dL Creatinine (0.66-1.25) mg/dL Glucose (74-99) mg/dL POC Glucose (mg/dL) 134 H 150 H 140 H (75-99) mg/dL Calcium (8.4-10.2) mg/dL Ferritin (22.0-322.0) ng/mL Lactate Dehydrogenase (313-618) U/L Creatine Kinase (55-170) U/L C-Reactive Protein (<10.0) mg/L Total Protein (6.3-8.2) g/dL Albumin (3.5-5.0) g/dL 09/02/20 09/02/20 09/02/20 Range/Units 03:42 03:42 04:08 WBC 19.2 H (3.8-10.6) k/uL RBC 3.55 L (4.30-5.90) m/uL Hgb 10.4 L (13.0-17.5) gm/dL Hct 30.8 L (39.0-53.0) % Plt Count 103 L (150-450) k/uL Neutrophils # (Manual) 17.66 H (1.3-7.7) k/uL Lymphocytes # (Manual) 0.38 L (1.0-4.8) k/uL Myelocytes # (Manual) 0.19 H (0) k/uL ABG pH (7.35-7.45) ABG pCO2 (35-45) mmHg ABG pO2 (83-108) mmHg ABG O2 Saturation (94-97) % Sodium 136 L (137-145) mmol/L Carbon Dioxide 18 L (22-30) mmol/L BUN 107 H* (9-20) mg/dL Creatinine 4.85 H (0.66-1.25) mg/dL Glucose 128 H (74-99) mg/dL POC Glucose (mg/dL) 163 H (75-99) mg/dL Calcium 6.6 L (8.4-10.2) mg/dL Ferritin 1543.1 H (22.0-322.0) ng/mL Lactate Dehydrogenase 1339 H (313-618) U/L Creatine Kinase 235 H (55-170) U/L C-Reactive Protein 43.2 H (<10.0) mg/L Total Protein 4.4 L (6.3-8.2) g/dL Albumin 1.9 L (3.5-5.0) g/dL 09/02/20 09/02/20 09/02/20 Range/Units 05:46 05:53 08:34 WBC (3.8-10.6) k/uL RBC (4.30-5.90) m/uL Hgb (13.0-17.5) gm/dL Hct (39.0-53.0) % Plt Count (150-450) k/uL Neutrophils # (Manual) (1.3-7.7) k/uL Lymphocytes # (Manual) (1.0-4.8) k/uL Myelocytes # (Manual) (0) k/uL ABG pH 7.22 L (7.35-7.45) ABG pCO2 55 H (35-45) mmHg ABG pO2 81 L (83-108) mmHg ABG O2 Saturation 92.3 L (94-97) % Sodium (137-145) mmol/L Carbon Dioxide (22-30) mmol/L BUN (9-20) mg/dL Creatinine (0.66-1.25) mg/dL Glucose (74-99) mg/dL POC Glucose (mg/dL) 162 H 105 H (75-99) mg/dL Calcium (8.4-10.2) mg/dL Ferritin (22.0-322.0) ng/mL Lactate Dehydrogenase (313-618) U/L Creatine Kinase (55-170) U/L C-Reactive Protein (<10.0) mg/L Total Protein (6.3-8.2) g/dL Albumin (3.5-5.0) g/dL 09/02/20 Range/Units 12:12 WBC (3.8-10.6) k/uL RBC (4.30-5.90) m/uL Hgb (13.0-17.5) gm/dL Hct (39.0-53.0) % Plt Count (150-450) k/uL Neutrophils # (Manual) (1.3-7.7) k/uL Lymphocytes # (Manual) (1.0-4.8) k/uL Myelocytes # (Manual) (0) k/uL ABG pH (7.35-7.45) ABG pCO2 (35-45) mmHg ABG pO2 (83-108) mmHg ABG O2 Saturation (94-97) % Sodium (137-145) mmol/L Carbon Dioxide (22-30) mmol/L BUN (9-20) mg/dL Creatinine (0.66-1.25) mg/dL Glucose (74-99) mg/dL POC Glucose (mg/dL) 149 H (75-99) mg/dL Calcium (8.4-10.2) mg/dL Ferritin (22.0-322.0) ng/mL Lactate Dehydrogenase (313-618) U/L Creatine Kinase (55-170) U/L C-Reactive Protein (<10.0) mg/L Total Protein (6.3-8.2) g/dL Albumin (3.5-5.0) g/dL Microbiology - Last 24 Hours (Table) 08/31/20 17:21 Blood Culture - Preliminary Blood No Growth after 24 hours 08/31/20 18:35 Urine Culture - Preliminary Urine,Catheterized Yeast species 09/01/20 06:24 Gram Stain - Preliminary Sputum Sputum Culture - Preliminary Assessment and Plan Assessment: -Covid 19 infection/pneumonia -confirmed pneumoperitoneum as noted on CT -bilateral lower extremity deep vein thromboses -acute renal failure likely acute tubular necrosis, likely from vancomycin toxicity currently requiring hemodialysis -Acute respiratory arrest with hypoxia -Right side pneumothorax , small stable left-sided pneumothorax. -Type 2 diabetes mellitus uncontrolled -mild hypovolemic hyponatremia -Hypertension: -DVT prophylaxis with IV heparin -GI prophylaxis Plan: Continue current medications and continue to monitor closely. Patient currently in the ICU for close monitoring. Patient is currently intubated and sedated. Maintained on IV antibiotics in the form of Cefepime and Flagyl added and will continue at this time. Pulmonary and infectious disease also following along with nephrology and surgery. Patient currently undergoing daily hemodialysis for acute renal failure likely due to vancomycin toxicity. CT of the abdomen confirmed pneumoperitoneum. Venous doppler confirmed bilateral lower extremity DVT and lovenox discontinued. IV heparin initiated. Patient continues on insulin drip and will continue at this time. Prognosis is extremely guarded and poor. Will continue to monitor vital signs and labs closely. Further recommendations to follow.
--- NOTE | 2020-09-02 23:07 | PN ---
PROGRESS NOTE DATE OF SERVICE: 09/02/2020 REASON FOR FOLLOWUP: Pneumonia and a question of secondary peritonitis. INTERVAL HISTORY: The patient is currently afebrile. The patient is a hemodynamically stable, not on any pressor support. FiO2 is currently down to 70%. No purulent secretions in the ET has been reported. He did have diarrhea for fecal management system. PHYSICAL EXAMINATION: Blood pressure 140/64, pulse of 94, temperature 98.4. He is 91% on 70% FiO2. General description is a middle-aged male, intubated on the vent. RESPIRATORY SYSTEM: Unlabored breathing, decreased breath sounds at the bases bilaterally, no wheeze. HEART: S1, S2. Regular rate and rhythm. ABDOMEN: Soft, no tenderness. EXTREMITIES: 2+ edema of feet. LABS: Hemoglobin 10.7, white count 18.1. DIAGNOSTIC IMPRESSION AND PLAN: Patient with acute respiratory failure which is multifactorial in this patient who did have MSSA pneumonia. Repeat sputum now showing a gram-negative and Kristen. Patient is currently covered with cefepime, fluconazole and Flagyl to continue and will monitor his clinical course closely. Continue with supportive care. MMODL / IJN: [id number] /
[2020-09-03] MEDS: metroNIDAZOLE-NS PMX 500 MG in SALINE 1 100ML.BAG IVPB SCH ×4 (00:04→23:31)
[2020-09-03 00:20] LABS: Glucose,Whole Blood 127 mg/dL (75-99)
[2020-09-03 02:29] LABS: Glucose,Whole Blood 127 mg/dL (75-99)
[2020-09-03 04:18] LABS: Glucose,Whole Blood 139 mg/dL (75-99)
[2020-09-03 05:42] LABS: ABG Base Excess -6.5 mmol/L; ABG HCO3 21 mmol/L (21-25); ABG PCO2 53 mmHg (35-45); ABG PH 7.21 (7.35-7.45); ABG PO2 70 mmHg (83-108); ABG TCO2 23 mmol/L (19-24); Allen Test Performed? Yes
[2020-09-03] MEDS: HEPARIN SOD,PORK IN 0.45% NACL 25,000 UNIT in 0.45% NACL 1 250ML.BAG IV SCH (06:05)
[2020-09-03 06:13] LABS: Glucose,Whole Blood 203 mg/dL (75-99)
[2020-09-03 06:55] LABS: Glucose,Whole Blood 193 mg/dL (75-99)
[2020-09-03] MEDS: INSULIN REGULAR 100 UNIT in SODIUM CHLORIDE 0.9% 100 ML IV SCH ×2 (06:57→17:45)
[2020-09-03 08:26] LABS: Platelet Count 162 k/uL (150-450)
[2020-09-03 08:52] LABS: Glucose,Whole Blood 162 mg/dL (75-99)
[2020-09-03] MEDS: FLUCONAZOLE IN NACL,ISO-OSM 100 MG in SALINE 1 50ML.BAG IVPB SCH (10:05)
[2020-09-03] MEDS: CEFEPIME 1 GM in SODIUM CHLORIDE 0.9% 50 ML IVPB SCH ×2 (10:05→20:29)
[2020-09-03] MEDS: DEXAMETHASONE SOD PHOSPHATE 10 MG/ML 1 ML VIAL IV SCH (10:06)
[2020-09-03] MEDS: SODIUM BICARBONATE TAB 650 MG TAB PO SCH ×3 (10:06→21:11)
[2020-09-03] MEDS: ASCORBIC ACID 500 MG TAB PO SCH (10:06)
[2020-09-03] MEDS: FAMOTIDINE 20 MG/2 ML VIAL IV SCH (10:08)
[2020-09-03] MEDS: ZINC SULFATE 220 MG CAP PO SCH (10:08)
[2020-09-03] MEDS: CHLORHEXIDINE GLUCONATE 15 ML CUP MUCOUS MEM SCH ×2 (10:09→20:30)
[2020-09-03 10:45] LABS: Glucose,Whole Blood 125 mg/dL (75-99)
--- NOTE | 2020-09-03 10:45 | P.PN ---
Subjective Progress Note Date: 09/03/20 (Critical care time 45 minutes) Principal diagnosis: Right spontaneous pneumothorax status post 2 chest tubes Pneumomediastinum Left spontaneous pneumothorax Acute hypoxic respiratory failure Covid 19 pneumonia Type 2 diabetes mellitus Hypertension hypertensive cardiovascular disease Dehydration hypovolemia and hyponatremia Depression 09/03/2020, patient seen eval reexamined during the rounds labs reviewed medications reviewed care plan discussed, patient has significant amount of bleeding through the mouth with clumps and clots bright red in addition has been bleeding from the NG tube and ET tube as well, heparin has been stopped, next dose of Lovenox will hold it, repeat CBC is pending hemodynamics are stable, patient is scheduled to get a PICC line, currently patient is on assist control rate of 34 PEEP of 12 tidal volume of 550, 70% oxygen, saturation are 90-92%, the still have significant air leak from the right-sided apical chest tube at the bottom left-sided no significant air leak has been present, patient is getting IV cephapirin for the MSSA in the sputum, IV Diflucan and Flagyl has been admitted for suspicion of bowel perforation however the free air in the abdomen is due to thoracic air mediastinal and pleural escaped into the abdominal cavity, patient has been tolerating tube feed well, he remains medically paralyzed with propofol and Nimbex, white cell count is 18,000 yesterday CBC 10.7 today's labs are not done, PTT was 157, arterial blood gas reviewed pH is 7.2 with pCO2 53 oxygen is 70, patient continued to get hemodialysis per nephrology, 09/02/2020, patient seen eval examined during the rounds labs reviewed medications reviewed, remains sedated on propofol as well as Nimbex, full ventilator support, patient is a 80% oxygen sats are 90%, rate is 34 PEEP is 12, the CAT scan of the lungs consistent with ARDS, patient is getting hemodialysis currently, duplex ultrasound was back positive for bilateral DVT Lovenox increased to 60 mg twice a day, patient continued to have intermittent leak from the right-sided upper chest tube no significant leak is present on bottom 1, no leak has been seen from the left side 1, and cell count remains elevated with stable hemoglobin arterial blood gas shows respiratory acidosis with CO2 55, BUN/creatinine is 107/4.8, prognosis is guarded with likelihood of recovery is poor continue supportive care 09/01/2020, patient seen eval examined care plan discussed with the staff at length, patient remains on 100% oxygen assist control rate of 34 tidal volume of the 500 PEEP of 12, patient had second cycle hemodialysis today 500 mL was removed yesterday 1.5 L was removed, patient was found to have free air in the abdomen by a chest CT, no hollow viscus perforation have been noted, here appears to be thoracic air escaping into the abdominal cavity, patient has minimal pneumothorax on the right side with a stable chest tube in the pleural space draining air right upper chest tube continued to drain area continuously however lower chest tube intermittently, patient has extensive pneumomediastinum by CAT scan, left-sided pneumothorax significantly improved minimal or no air leak has been present on the left chest tube, white cell count is up to 22,000, ABG slightly improved and better pH is 7.21, potassium is 5.5, BUN/creatinine was up to 133 and 6.5 postdialysis labs are pending, patient is resumed back on tube feed post second dialysis sats have improved to 96% will titrate oxygen down as tolerated to keep saturation over 92%, critical care time spent 40 minutes 08/31/2020, patient seen eval examined during the rounds labs reviewed medications reviewed care plan discussed with the staff at length, remains medically paralyzed with propofol and Nimbex drip, chest tubes is still significantly leaking on the right side lungs are well expanded though, minimum leak is present at the base, cardiothoracic surgery is have recommended to follow it up closely, no active intervention has been recommended, renal function continued to get worse, patient has been getting diuresis with loop diuretics, would recommend to discontinue it patient remains on bicarb drip, along with anticoagulation, when setting remains stable assist control rate of 24 deep of 12 tidal volume 500 with 100% oxygen, saturation is just a 88-90%, continue broad-spectrum antibiotics and supportive care long-term prognosis poor will defer decision about dialysis to the family and renal services 08/30/2020, patient seen eval examined during the rounds medically sedated and paralyzed of propofol and Nimbex, on full ventilator support with assist control rate of 24 EP is 1200% oxygen which has been reduced to 90% now, saturation 91- 92%, bilateral chest tubes are present minimal air leak on the left side, right- sided apical tube still having persistent nearly however distal intermittently, tolerating tube feed well, labs reviewed arterial blood gas reviewed as well along with radiographic findings patient BUN/creatinine continue to go up consistent with acute tubular necrosis likely related to covid 19 sepsis, arterial blood gases revealed pH is 7.18 pCO2 54 pO2 90, patient improved to 5.4, BUN/creatinine up to 132 and 5.86 08/29/2020, patient seen eval examined during the rounds labs reviewed medications reviewed care plan discussed with the staff including RN and respiratory therapy at length, saturation remains borderline however they were 90% in the morning came down to 84% increasing PEEP causes rapid increase in peak air pressure and platue pressure up to 55 and 35, PEEP lowered to 12, patient remains on 100% oxygen with full assist control mode, arterial blood gases reviewed and significant metabolic acidosis appears to be related to acute renal failure, renal services have been consulted, patient appears to have nonoliguric acute renal failure likely acute tubular necrosis, patient remains gently hydrated to feed and given, remains afebrile, white cell count remains on higher side hemoglobin stable, arterial blood gases noted to be to be pH of 7.18 pCO2 53 pO2 70, 1 amp of bicarb along with bicarb drip have been initiated, potassium running on the higher side of 5.8, inflammatory parameters slightly down of thousand today LDH and C-reactive protein remains elevated, sputum for positive for a MSSA, vancomycin has been discontinued which may be contributing to acute kidney injury, patient remains on the propofol as well as Nimbex drip, patient has 2 chest tubes on the right side and one chest tube on the left side due to pneumomediastinum and bilateral pneumothorax they've been aching is minimal on left and right bottom chest tube significant on apical chest tube however 08/28/2020, patient seen eval examined during the rounds labs reviewed medi cations reviewed, currently patient is on ventilator support PEEP of 10, 90% oxygen, assist control rate of 30, care blood gases reviewed, chest x-ray reviewed, minimal bilateral apical pneumothorax is present, stable left-sided chest U no air leak is present, right-sided apical tube continued to bubble significant air leak, bottom minimal, patient is medically paralyzed with propofol and Nimbex, laboratory data reviewed discussed at length with the staff 08/27/2020, patient seen eval examined during the rounds sedated and medically paralyzed, right-sided chest tube is still significantly and leak upper tube is present no significantly is seen in the 1 and also left side, labs and ar terial blood gases reviewed and ventilator adjusted, chest U was stable on chest x-ray, apical very small pneumothorax, 08/26/2020, patient seen eval examined during the rounds labs reviewed medicati ons reviewed, chest tube continue to gently air, patient intubated, on full ventilator support noted evidence of hypercapnia with increase the ventilation C orders, chest x-ray reviewed trace pneumothorax on the apex cannot be excluded, basal bilateral dense infiltrate with mediastinal emphysema, no significant pneumothorax seen, labs reviewed, critical care time 35 minutes 08/25/2020, patient seen eval examined during the rounds labs reviewed medications reviewed care plan discussed with the staff, patient had a respiratory arrest earlier this morning during which he pulled out his BiPAP mac sonia oxygen saturation dropped down into 20s, he also tried to pull out his chest tube, during that process he was intubated, postintubation chest x-ray shows minimal pneumothorax on the right side left-sided pneumothorax or anterior posterior cannot be excluded, extensive pneumomediastinum is present, patient currently and placed on the propofol at 75 mics was very restless and agitated, tachypneic tachycardic and eventually medically paralyzed with Nimbex drip, respiratory status slightly more stable patient is more calm and now hemodynamics stable, has been getting IV fluids, will need a chest tube on the the left side to avoid tension pneumothorax, keep the 2 chest tube on the right side 1 direct towards the apex appears to be stable however one at the base of the lung is still in, dense bilateral infiltrate are present, white cell count is up to 34,000, arterial blood gas and chest x-ray reviewed consistent with respiratory and metabolic acidosis, with severe hypoxia requiring PEEP with high ventilatory rate 08/24/2020, patient seen eval examined during the rounds labs reviewed medications reviewed sitting upright on the bed, remains on BiPAP with 100% oxygen, saturation 95%, patient desaturated into goes on the right side down and intermittently during supine posture, however do better with left side up, and sitting up as well, chest x-ray from today reviewed pneumothorax recurred on the right side in spite of 2 chest tube aiming towards the apex and the base with significant air leak, small left apical pneumothorax however is stable, patient is awaiting evaluation from thoracic surgery for possible VATS or transfer to tertiary care center, left side and INR will put a small bore pigtail catheter at the apex later on this morning, patient remains afebrile slightly tachycardic tachypneic, inflammatory parameters still up, prognosis is guarded care plan dis cussed directly and indirectly with primary service, staff, cardiothoracic and IR 08/23/2020, patient seen eval reexamined during the rounds labs reviewed medications reviewed, oxygen saturation remained stable, however patient couldn't tolerate off of BiPAP, he remains on BiPAP. All, chest x-ray reviewed, patient hasn't to right-sided chest tube air leak is present from both, left- sided residual small pneumothorax present along with subcutaneous emphysema and mediastinal emphysema, interventional radiology could not do a chest tube on the left side, they are planning to do it tomorrow, white cell count decreased to 19,000, d-dimer is still elevated inflammatory parameters elevated consistent with cytokine nita 08/22/2020, patient seen eval reexamined significant desaturation was more noted, sats dropped down to 55-70% spontaneously comes right back up though currently on 93% BiPAP, Semiprone with the right side up patient cannot tolerate airvo, desaturated easily remains tachypneic tachycardic hemodynamic status however remains stable, chest x-ray findings reviewed in spite of right-sided chest tube and persistent air leak there is a persistent spontaneous pneumothorax fairly large on the right side and small apical left sided spontaneous pneumothorax noted with pneumomediastinum and bilateral dense infiltrate at the bases, thoracic surgery has been consulted, patient may need an another chest tube on the right side versus VATS and preferably and of the small chest U was on the left side, will defer to expertise of thoracic surgery, labs reviewed medications reviewed care plan discussed at length with the staff 08/21/2020, patient seen eval examined during the rounds sitting upright in chair breathing slightly better oxygen saturation is 87-88%, patient is on high flow oxygen along with the nonrebreather mass, tachypneic tachycardic blood pressure is slightly high, patient has a right-sided chest tube is still leaking air, chest x-ray reviewed bilateral infiltrate is present with residual pneumothorax and subcu emphysema, labs from today reviewed white cell count remains elevated 20,000, renal functions stable, will attempt semi-prone with right side up, we will obtain an transfuse convalescent plasma 08/20/2020, patient seen eval examined during the rounds a labs reviewed medications reviewed this morning patient had problems with agitated anxiety and a prehension, oxygen saturation dropped down into 70s, rapid response was called and stat chest x-ray revealed presence of pneumothorax which is significant on the right side as well they may be a small mediastinal emphysema on the left side as well, patient has been made semi-prone with that oxygen saturation 100% nonrebreather mask improved to 92% patient is more calm, he remains afebrile temperature is 98.3 respiratory rate and mid to high 20s, weight is oxygen saturation 94%, chest x-ray finding reviewed 08/19/2020, patient seen eval examined during the rounds labs reviewed medications reviewed care plan discussed, patient is sitting upright on the bed on 100% nonrebreather mask, saturation remains marginal about 88%, remains afebrile, slightly anxious, advised based he hasn't to be on prone position as much as possible, labs reviewed white cell count is 17,000, patient remains on Remdesivir, Decadron, Lovenox August 18 2020, patient seen eval examined during the rounds is still on 5 L high flow oxygen, denies any chest pain breathing difficulties present, denies any cough or sputum production labs chest x-ray reviewed This is a 59-year-old male who has history of diabetes hypertension hypertensive cardiovascular disease and not feeling well for the last 5-6 days with cough and increased shortness of breath started with a sore throat, patient admitted into the hospital was spiking fever up to 101, oxygen saturation 90%, patient already has been started on REM doesn't wear and Decadron, his initial admit x-ray cystoscopy right midlung field and left lower lid feeding infiltrate patient gradually got worse initially has been on room air oxygen requirement keep on going up to 3 L and subsequently on 5 L high flow oxygen with that oxygen saturation is 93%, critical care time spent 35 minutes Objective - Vital Signs Vital signs: Vital Signs Temp 98.5 F 09/03/20 04:00 Pulse 97 09/03/20 07:00 Resp 30 H 09/03/20 07:00 BP 118/59 09/03/20 07:00 Pulse Ox 91 L 09/03/20 07:00 Intake & Output 09/02/20 09/03/20 09/03/20 18:59 06:59 18:59 Intake Total 2041.909 1451.896 238.303 Output Total 3000 80 5 Balance -994.654 5260.896 233.303 Weight 120.7 kg Intake: IV 600 190.0 10 Cefepime 1 gm In Sodium 50 50.0 Chloride 0.9% 50 ml @ 12. 5 mls/hr IVPB Q12HR [facility] Rx#:[id number] Fluconazole in NaCl,Iso- 150 50 Osm 100 mg In Saline 1 50ml.bag @ 50 mls/hr IVPB DAILY [facility] Rx#:[id number] Sodium Chloride 0.9% 1, 400 30 000 ml @ 50 mls/hr IV . Q20H [facility] Rx#:[id number] sodium chloride @ 10ml hr 60 10 Intake, IV Titration 961.909 691.896 188.303 Amount Cisatracurium 200 mg In 319.680 Sodium Chloride 0.9% 180 ml @ 1 MCG/KG/MIN 5.994 mls/hr IV .Q24H [facility] Rx#: [id number] Heparin Sod,Pork in 0.45% 243.029 43.863 NaCl 25,000 unit In 0.45 % NaCl 1 250ml.bag @ 18 UNITS/KG/HR 21.78 mls/hr IV .[id number] [facility] Rx#: [id number] Insulin Regular 100 unit 153.133 48.867 44.44 In Sodium Chloride 0.9% 100 ml @ Per Protocol IV .Q0M [facility] Rx#:[id number] metroNIDAZOLE-NS PMX 500 100 mg In Saline 1 100ml.bag @ 100 mls/hr IVPB Q8HR [facility] Rx#:[id number] propofoL 1,000 mg In 389.096 400.000 100 Empty Bag 1 bag @ Titrate IV .Q0M [facility] Rx#: [id number] Tube Feeding 480 480 40 Other 90 Output: Urine 0 80 5 Hemodialysis 1500 Other 1500 Other: Voiding Method Indwelling Catheter Indwelling Catheter - Exam - Constitutional General appearance: Intubated medically paralyzed on full ventilator support - EENT Eyes: EOMI, PERRLA Ears: bilateral: normal - Neck Neck: normal ROM Carotids: bilateral: upstroke normal Thyroid: bilateral: normal size - Respiratory Respiratory: bilateral: diminished - Cardiovascular Rhythm: regular Heart sounds: normal: S1, S2 - Gastrointestinal General gastrointestinal: normal bowel sounds - Neurologic Neurologic: CNII-XII intact - Musculoskeletal Musculoskeletal: gait normal, generalized weakness, strength equal bilaterally - Psychiatric Psychiatric: Appears, now post medical paralysis - Labs CBC & Chem 7: 09/02/20 12:44 09/02/20 03:42 Labs: Abnormal Lab Results - Last 24 Hours (Table) 09/02/20 09/02/20 09/02/20 Range/Units 03:42 12:12 12:44 WBC 18.1 H (3.8-10.6) k/uL RBC 3.65 L (4.30-5.90) m/uL Hgb 10.7 L (13.0-17.5) gm/dL Hct 32.1 L (39.0-53.0) % Neutrophils # (Manual) 16.40 H (1.3-7.7) k/uL Lymphocytes # (Manual) 0.72 L (1.0-4.8) k/uL Metamyelocytes # (Man) 0.18 H (0) k/uL Myelocytes # (Manual) 0.36 H (0) k/uL APTT (22.0-30.0) sec ABG pH (7.35-7.45) ABG pCO2 (35-45) mmHg ABG pO2 (83-108) mmHg ABG O2 Saturation (94-97) % POC Glucose (mg/dL) 149 H (75-99) mg/dL Ferritin 1543.1 H (22.0-322.0) ng/mL 09/02/20 09/02/20 09/02/20 Range/Units 14:37 15:49 21:11 WBC (3.8-10.6) k/uL RBC (4.30-5.90) m/uL Hgb (13.0-17.5) gm/dL Hct (39.0-53.0) % Neutrophils # (Manual) (1.3-7.7) k/uL Lymphocytes # (Manual) (1.0-4.8) k/uL Metamyelocytes # (Man) (0) k/uL Myelocytes # (Manual) (0) k/uL APTT (22.0-30.0) sec ABG pH (7.35-7.45) ABG pCO2 (35-45) mmHg ABG pO2 (83-108) mmHg ABG O2 Saturation (94-97) % POC Glucose (mg/dL) 145 H 133 H 128 H (75-99) mg/dL Ferritin (22.0-322.0) ng/mL 09/02/20 09/03/20 09/03/20 Range/Units 22:12 00:09 00:15 WBC (3.8-10.6) k/uL RBC (4.30-5.90) m/uL Hgb (13.0-17.5) gm/dL Hct (39.0-53.0) % Neutrophils # (Manual) (1.3-7.7) k/uL Lymphocytes # (Manual) (1.0-4.8) k/uL Metamyelocytes # (Man) (0) k/uL Myelocytes # (Manual) (0) k/uL APTT 157.1 H* (22.0-30.0) sec ABG pH (7.35-7.45) ABG pCO2 (35-45) mmHg ABG pO2 (83-108) mmHg ABG O2 Saturation (94-97) % POC Glucose (mg/dL) 142 H 127 H (75-99) mg/dL Ferritin (22.0-322.0) ng/mL 09/03/20 09/03/20 09/03/20 Range/Units 02:17 04:07 05:34 WBC (3.8-10.6) k/uL RBC (4.30-5.90) m/uL Hgb (13.0-17.5) gm/dL Hct (39.0-53.0) % Neutrophils # (Manual) (1.3-7.7) k/uL Lymphocytes # (Manual) (1.0-4.8) k/uL Metamyelocytes # (Man) (0) k/uL Myelocytes # (Manual) (0) k/uL APTT (22.0-30.0) sec ABG pH 7.21 L (7.35-7.45) ABG pCO2 53 H (35-45) mmHg ABG pO2 70 L (83-108) mmHg ABG O2 Saturation 90.0 L (94-97) % POC Glucose (mg/dL) 127 H 139 H (75-99) mg/dL Ferritin (22.0-322.0) ng/mL 09/03/20 09/03/20 09/03/20 Range/Units 06:11 06:54 08:50 WBC (3.8-10.6) k/uL RBC (4.30-5.90) m/uL Hgb (13.0-17.5) gm/dL Hct (39.0-53.0) % Neutrophils # (Manual) (1.3-7.7) k/uL Lymphocytes # (Manual) (1.0-4.8) k/uL Metamyelocytes # (Man) (0) k/uL Myelocytes # (Manual) (0) k/uL APTT (22.0-30.0) sec ABG pH (7.35-7.45) ABG pCO2 (35-45) mmHg ABG pO2 (83-108) mmHg ABG O2 Saturation (94-97) % POC Glucose (mg/dL) 203 H 193 H 162 H (75-99) mg/dL Ferritin (22.0-322.0) ng/mL Microbiology - Last 24 Hours (Table) 09/01/20 06:24 Gram Stain - Final Sputum Sputum Culture - Final Kristen albicans Pseudomonas aeruginosa 08/31/20 18:35 Urine Culture - Final Urine,Catheterized Kristen albicans 08/31/20 17:21 Blood Culture - Preliminary Blood No Growth after 48 hours Assessment and Plan Assessment: Massive oral cavity bleed as well as some from ET tube and NG tube heparin has been discontinued Acute hypoxic and hypercapnic respiratory failure Status post respiratory arrest patient intubated on full ventilator support lung protective strategy MSSA pneumonia Bilateral DVT Acute kidney injury likely related to acute tubular necrosis as well as vancomycin associated renal damage on daily dialysis Right spontaneous pneumothorax in spite of right-sided double chest tube persistent air leak cardiothoracic surgery have no new recommendations and they signed off Anterior posterior pneumothorax on the left side status post left-sided chest tube was stable no air leak is present Extensive Pneumomediastinum Free air in the abdomen due to mediastinal emphysema and pneumothorax Acute hypoxic respiratory failure Covid 19 pneumonia Type 2 diabetes mellitus Hypertension hypertensive cardiovascular disease Dehydration hypovolemia and hyponatremia Depression Overall prognosis is very poor Plan: Ventilator support adjustment as needed Heparin has been stopped Awaiting CBC blood to be transfused if hemodynamic instability or hemoglobin drop down less than 7 or 8 Lovenox 60 mg every 12 hourly once bleeding has a stopped Chest tube assessment and plan for bilateral pneumothoraces and pneumomediastinum as above, continue suction 40 cm water on the right side 20 cm water and left side dialysis is in progress Hemodialysis as per renal services Monitor renal output closely Continue antihypertensive agent from home Continue to follow sugars closely Observe off of vancomycin, continue cefepime adjusted for renal failure Ventilator adjustment as needed and adjustment of PEEP as noted above Status post Convalescent plasma Continue Decadron and status post IV Remdesivir for 5 days respectively Further plan of care as per clinical response of the patient, overall prognosis is guarded Time with Patient: Greater than 30
--- NOTE | 2020-09-03 11:23 | P.PN ---
Subjective Patient is seen in follow-up for acute kidney injury. Creatinine peaked at 6.5 as of August 31. He was started on hemodialysis for low urine output and volume overload. Remains oliguric. Diuretic unresponsive. Currently on 70% FiO2. Intubated. Tolerated 1.5 L ultrafiltration yesterday. He did have some bleeding from his mouth and IV heparin was stopped. Vital signs are stable. Intubated. Regular rhythm noted on the monitor. No distention noted. 2+ edema. Exam discussed in detail with the nurse. Objective - Vital Signs Vital signs: Vital Signs Temp 98.5 F 09/03/20 04:00 Pulse 97 09/03/20 07:00 Resp 30 H 09/03/20 07:00 BP 118/59 09/03/20 07:00 Pulse Ox 91 L 09/03/20 07:00 Intake & Output 09/02/20 09/03/20 09/03/20 18:59 06:59 18:59 Intake Total 2041.909 1451.896 276.010 Output Total 3000 80 5 Balance -479.027 8183.896 271.010 Weight 120.7 kg Intake: IV 600 190.0 10 Cefepime 1 gm In Sodium 50 50.0 Chloride 0.9% 50 ml @ 12. 5 mls/hr IVPB Q12HR [facility] Rx#:[id number] Fluconazole in NaCl,Iso- 150 50 Osm 100 mg In Saline 1 50ml.bag @ 50 mls/hr IVPB DAILY [facility] Rx#:[id number] Sodium Chloride 0.9% 1, 400 30 000 ml @ 50 mls/hr IV . Q20H [facility] Rx#:[id number] sodium chloride @ 10ml hr 60 10 Intake, IV Titration 961.909 691.896 226.010 Amount Cisatracurium 200 mg In 319.680 Sodium Chloride 0.9% 180 ml @ 1 MCG/KG/MIN 5.994 mls/hr IV .Q24H [facility] Rx#: [id number] Heparin Sod,Pork in 0.45% 243.029 43.863 NaCl 25,000 unit In 0.45 % NaCl 1 250ml.bag @ 18 UNITS/KG/HR 21.78 mls/hr IV .[id number] [facility] Rx#: [id number] Insulin Regular 100 unit 153.133 48.867 82.147 In Sodium Chloride 0.9% 100 ml @ Per Protocol IV .Q0M [facility] Rx#:[id number] metroNIDAZOLE-NS PMX 500 100 mg In Saline 1 100ml.bag @ 100 mls/hr IVPB Q8HR [facility] Rx#:[id number] propofoL 1,000 mg In 389.096 400.000 100 Empty Bag 1 bag @ Titrate IV .Q0M [facility] Rx#: [id number] Tube Feeding 480 480 40 Other 90 Output: Urine 0 80 5 Hemodialysis 1500 Other 1500 Other: Voiding Method Indwelling Catheter Indwelling Catheter - Labs CBC & Chem 7: 09/02/20 12:44 09/02/20 03:42 Labs: Abnormal Lab Results - Last 24 Hours (Table) 09/02/20 09/02/20 09/02/20 Range/Units 03:42 12:12 12:44 WBC 18.1 H (3.8-10.6) k/uL RBC 3.65 L (4.30-5.90) m/uL Hgb 10.7 L (13.0-17.5) gm/dL Hct 32.1 L (39.0-53.0) % Neutrophils # (Manual) 16.40 H (1.3-7.7) k/uL Lymphocytes # (Manual) 0.72 L (1.0-4.8) k/uL Metamyelocytes # (Man) 0.18 H (0) k/uL Myelocytes # (Manual) 0.36 H (0) k/uL APTT (22.0-30.0) sec ABG pH (7.35-7.45) ABG pCO2 (35-45) mmHg ABG pO2 (83-108) mmHg ABG O2 Saturation (94-97) % POC Glucose (mg/dL) 149 H (75-99) mg/dL Ferritin 1543.1 H (22.0-322.0) ng/mL 09/02/20 09/02/20 09/02/20 Range/Units 14:37 15:49 21:11 WBC (3.8-10.6) k/uL RBC (4.30-5.90) m/uL Hgb (13.0-17.5) gm/dL Hct (39.0-53.0) % Neutrophils # (Manual) (1.3-7.7) k/uL Lymphocytes # (Manual) (1.0-4.8) k/uL Metamyelocytes # (Man) (0) k/uL Myelocytes # (Manual) (0) k/uL APTT (22.0-30.0) sec ABG pH (7.35-7.45) ABG pCO2 (35-45) mmHg ABG pO2 (83-108) mmHg ABG O2 Saturation (94-97) % POC Glucose (mg/dL) 145 H 133 H 128 H (75-99) mg/dL Ferritin (22.0-322.0) ng/mL 09/02/20 09/03/20 09/03/20 Range/Units 22:12 00:09 00:15 WBC (3.8-10.6) k/uL RBC (4.30-5.90) m/uL Hgb (13.0-17.5) gm/dL Hct (39.0-53.0) % Neutrophils # (Manual) (1.3-7.7) k/uL Lymphocytes # (Manual) (1.0-4.8) k/uL Metamyelocytes # (Man) (0) k/uL Myelocytes # (Manual) (0) k/uL APTT 157.1 H* (22.0-30.0) sec ABG pH (7.35-7.45) ABG pCO2 (35-45) mmHg ABG pO2 (83-108) mmHg ABG O2 Saturation (94-97) % POC Glucose (mg/dL) 142 H 127 H (75-99) mg/dL Ferritin (22.0-322.0) ng/mL 09/03/20 09/03/20 09/03/20 Range/Units 02:17 04:07 05:34 WBC (3.8-10.6) k/uL RBC (4.30-5.90) m/uL Hgb (13.0-17.5) gm/dL Hct (39.0-53.0) % Neutrophils # (Manual) (1.3-7.7) k/uL Lymphocytes # (Manual) (1.0-4.8) k/uL Metamyelocytes # (Man) (0) k/uL Myelocytes # (Manual) (0) k/uL APTT (22.0-30.0) sec ABG pH 7.21 L (7.35-7.45) ABG pCO2 53 H (35-45) mmHg ABG pO2 70 L (83-108) mmHg ABG O2 Saturation 90.0 L (94-97) % POC Glucose (mg/dL) 127 H 139 H (75-99) mg/dL Ferritin (22.0-322.0) ng/mL 09/03/20 09/03/20 09/03/20 Range/Units 06:11 06:54 08:50 WBC (3.8-10.6) k/uL RBC (4.30-5.90) m/uL Hgb (13.0-17.5) gm/dL Hct (39.0-53.0) % Neutrophils # (Manual) (1.3-7.7) k/uL Lymphocytes # (Manual) (1.0-4.8) k/uL Metamyelocytes # (Man) (0) k/uL Myelocytes # (Manual) (0) k/uL APTT (22.0-30.0) sec ABG pH (7.35-7.45) ABG pCO2 (35-45) mmHg ABG pO2 (83-108) mmHg ABG O2 Saturation (94-97) % POC Glucose (mg/dL) 203 H 193 H 162 H (75-99) mg/dL Ferritin (22.0-322.0) ng/mL 09/03/20 Range/Units 10:43 WBC (3.8-10.6) k/uL RBC (4.30-5.90) m/uL Hgb (13.0-17.5) gm/dL Hct (39.0-53.0) % Neutrophils # (Manual) (1.3-7.7) k/uL Lymphocytes # (Manual) (1.0-4.8) k/uL Metamyelocytes # (Man) (0) k/uL Myelocytes # (Manual) (0) k/uL APTT (22.0-30.0) sec ABG pH (7.35-7.45) ABG pCO2 (35-45) mmHg ABG pO2 (83-108) mmHg ABG O2 Saturation (94-97) % POC Glucose (mg/dL) 125 H (75-99) mg/dL Ferritin (22.0-322.0) ng/mL Microbiology - Last 24 Hours (Table) 09/01/20 06:24 Gram Stain - Final Sputum Sputum Culture - Final Kristen albicans Pseudomonas aeruginosa 08/31/20 18:35 Urine Culture - Final Urine,Catheterized Kristen albicans 08/31/20 17:21 Blood Culture - Preliminary Blood No Growth after 48 hours Assessment and Plan Plan: Assessment: 1. Acute kidney injury secondary to ATN secondary to vancomycin toxicity and sepsis. Creatinine peaked at 6.51 as of August 31. Started on hemodialysis for low urine output and volume overload. Oliguric. Diuretic unresponsive. 2. Hyperkalemia secondary to acute kidney injury and lisinopril. Improved postdialysis. 3. Acute hypoxic and hypercapnic respiratory failure. 4. Covid 19 pneumonia maintained on steroids and zinc now. 5. Respiratory and metabolic acidosis. Maintained on oral bicarbonate. 6. Pneumothorax status post bilateral chest tube placement. 7. Lower extremity DVT maintained on Lovenox. Plan: Hemodialysis today. Continue to assess daily for need for renal replacement therapy. Wean FiO2. Morning labs pending as doesn't have an IV access. Dose of Lovenox to be adjusted for renal function.
--- NOTE | 2020-09-03 11:46 | P.PN ---
Subjective Progress Note Date: 09/03/20 CHIEF COMPLAINT: Free air noted on CT of chest HISTORY OF PRESENT ILLNESS: Patient is being followed for the pneumoperitoneum which is due to patient's pneumothorax. Patient remains intubated, sedated and paralyzed in ICU. Patient was on IV heparin for bilateral DVT. Patient started having significant amount of bleeding through the mouth with bright red clots of blood from NG tube and ET-tube as well. IV heparin was stopped. Afebrile CBC pending PHYSICAL EXAM: VITAL SIGNS: Reviewed. GENERAL: Well-developed in no acute distress. HEENT: No sclera icterus. Extraocular movements grossly intact. Moist buccal mucosa. Head is atraumatic, normocephalic. ABDOMEN: Soft. Nondistended. Nontender. NEUROLOGIC: Alert and oriented. Cranial nerves II through XII grossly intact. ASSESSMENT: 1. Confirmed pneumoperitoneum on computed tomography scan of the abdomen. This is likely related to patient's pneumothorax 2. Covid 19 infection 3. Bilateral pneumothoraces status post bilateral chest tube placement 4. Acute kidney injury secondary to ATN and vancomycin toxicity. Patient has been started on hemodialysis 5. Acute hypoxic and hypercapnic respiratory failure PLAN: -Continue supportive care -No surgical intervention planned [facility] Consultant note has been reviewed by physician. Signing provider agrees with the documented findings, assessment, and plan of care. Objective - Vital Signs Vital signs: Vital Signs Temp 98.5 F 09/03/20 04:00 Pulse 97 09/03/20 07:00 Resp 30 H 09/03/20 07:00 BP 118/59 09/03/20 07:00 Pulse Ox 91 L 09/03/20 07:00 Intake & Output 09/02/20 09/03/20 09/03/20 18:59 06:59 18:59 Intake Total 2041.909 1451.896 276.010 Output Total 3000 80 5 Balance -318.162 6914.896 271.010 Weight 120.7 kg Intake: IV 600 190.0 10 Cefepime 1 gm In Sodium 50 50.0 Chloride 0.9% 50 ml @ 12. 5 mls/hr IVPB Q12HR [facility] Rx#:[id number] Fluconazole in NaCl,Iso- 150 50 Osm 100 mg In Saline 1 50ml.bag @ 50 mls/hr IVPB DAILY [facility] Rx#:[id number] Sodium Chloride 0.9% 1, 400 30 000 ml @ 50 mls/hr IV . Q20H [facility] Rx#:[id number] sodium chloride @ 10ml hr 60 10 Intake, IV Titration 961.909 691.896 226.010 Amount Cisatracurium 200 mg In 319.680 Sodium Chloride 0.9% 180 ml @ 1 MCG/KG/MIN 5.994 mls/hr IV .Q24H [facility] Rx#: [id number] Heparin Sod,Pork in 0.45% 243.029 43.863 NaCl 25,000 unit In 0.45 % NaCl 1 250ml.bag @ 18 UNITS/KG/HR 21.78 mls/hr IV .[id number] [facility] Rx#: [id number] Insulin Regular 100 unit 153.133 48.867 82.147 In Sodium Chloride 0.9% 100 ml @ Per Protocol IV .Q0M [facility] Rx#:[id number] metroNIDAZOLE-NS PMX 500 100 mg In Saline 1 100ml.bag @ 100 mls/hr IVPB Q8HR [facility] Rx#:[id number] propofoL 1,000 mg In 389.096 400.000 100 Empty Bag 1 bag @ Titrate IV .Q0M [facility] Rx#: [id number] Tube Feeding 480 480 40 Other 90 Output: Urine 0 80 5 Hemodialysis 1500 Other 1500 Other: Voiding Method Indwelling Catheter Indwelling Catheter - Labs CBC & Chem 7: 09/02/20 12:44 09/02/20 03:42 Labs: Abnormal Lab Results - Last 24 Hours (Table) 09/02/20 09/02/20 09/02/20 Range/Units 12:12 12:44 14:37 WBC 18.1 H (3.8-10.6) k/uL RBC 3.65 L (4.30-5.90) m/uL Hgb 10.7 L (13.0-17.5) gm/dL Hct 32.1 L (39.0-53.0) % Neutrophils # (Manual) 16.40 H (1.3-7.7) k/uL Lymphocytes # (Manual) 0.72 L (1.0-4.8) k/uL Metamyelocytes # (Man) 0.18 H (0) k/uL Myelocytes # (Manual) 0.36 H (0) k/uL APTT (22.0-30.0) sec ABG pH (7.35-7.45) ABG pCO2 (35-45) mmHg ABG pO2 (83-108) mmHg ABG O2 Saturation (94-97) % POC Glucose (mg/dL) 149 H 145 H (75-99) mg/dL 09/02/20 09/02/20 09/02/20 Range/Units 15:49 21:11 22:12 WBC (3.8-10.6) k/uL RBC (4.30-5.90) m/uL Hgb (13.0-17.5) gm/dL Hct (39.0-53.0) % Neutrophils # (Manual) (1.3-7.7) k/uL Lymphocytes # (Manual) (1.0-4.8) k/uL Metamyelocytes # (Man) (0) k/uL Myelocytes # (Manual) (0) k/uL APTT (22.0-30.0) sec ABG pH (7.35-7.45) ABG pCO2 (35-45) mmHg ABG pO2 (83-108) mmHg ABG O2 Saturation (94-97) % POC Glucose (mg/dL) 133 H 128 H 142 H (75-99) mg/dL 09/03/20 09/03/20 09/03/20 Range/Units 00:09 00:15 02:17 WBC (3.8-10.6) k/uL RBC (4.30-5.90) m/uL Hgb (13.0-17.5) gm/dL Hct (39.0-53.0) % Neutrophils # (Manual) (1.3-7.7) k/uL Lymphocytes # (Manual) (1.0-4.8) k/uL Metamyelocytes # (Man) (0) k/uL Myelocytes # (Manual) (0) k/uL APTT 157.1 H* (22.0-30.0) sec ABG pH (7.35-7.45) ABG pCO2 (35-45) mmHg ABG pO2 (83-108) mmHg ABG O2 Saturation (94-97) % POC Glucose (mg/dL) 127 H 127 H (75-99) mg/dL 09/03/20 09/03/20 09/03/20 Range/Units 04:07 05:34 06:11 WBC (3.8-10.6) k/uL RBC (4.30-5.90) m/uL Hgb (13.0-17.5) gm/dL Hct (39.0-53.0) % Neutrophils # (Manual) (1.3-7.7) k/uL Lymphocytes # (Manual) (1.0-4.8) k/uL Metamyelocytes # (Man) (0) k/uL Myelocytes # (Manual) (0) k/uL APTT (22.0-30.0) sec ABG pH 7.21 L (7.35-7.45) ABG pCO2 53 H (35-45) mmHg ABG pO2 70 L (83-108) mmHg ABG O2 Saturation 90.0 L (94-97) % POC Glucose (mg/dL) 139 H 203 H (75-99) mg/dL 09/03/20 09/03/20 09/03/20 Range/Units 06:54 08:50 10:43 WBC (3.8-10.6) k/uL RBC (4.30-5.90) m/uL Hgb (13.0-17.5) gm/dL Hct (39.0-53.0) % Neutrophils # (Manual) (1.3-7.7) k/uL Lymphocytes # (Manual) (1.0-4.8) k/uL Metamyelocytes # (Man) (0) k/uL Myelocytes # (Manual) (0) k/uL APTT (22.0-30.0) sec ABG pH (7.35-7.45) ABG pCO2 (35-45) mmHg ABG pO2 (83-108) mmHg ABG O2 Saturation (94-97) % POC Glucose (mg/dL) 193 H 162 H 125 H (75-99) mg/dL Microbiology - Last 24 Hours (Table) 09/01/20 06:24 Gram Stain - Final Sputum Sputum Culture - Final Kristen albicans Pseudomonas aeruginosa 08/31/20 18:35 Urine Culture - Final Urine,Catheterized Kristen albicans 08/31/20 17:21 Blood Culture - Preliminary Blood No Growth after 48 hours
[2020-09-03 13:16] LABS: Glucose,Whole Blood 135 mg/dL (75-99)
--- NOTE | 2020-09-03 13:37 | P.PN ---
Subjective Progress Note Date: 09/03/20 This is a 59-year-old male who was admitted for Covid 19 pneumonitis with sepsis that was present on admission and is being closely monitored. Patient continues in the ICU as he is currently on mechanical vent intubated and sedated. Patient continues to have bilateral chest tubes with 2 in the right and one on the left. Continued air leak present on the right. Patient had a confirmed pneumoperitoneum on computed tomography scan. Multiple medical consultations following closely as prognosis is extremely guarded. Patient was on IV heparin for bilateral lower extremity DVTs. noted bleeding from the orogastric tubes and heparin was discontinued. Patient has limited IV access and currently awaiting for PICC line placement. Patient continues to have loose stools and fecal management system was placed. Patient has upper and lower bilateral extremity swelling and edema noted. Patient is maintained on Lasix. Nephrology also following as patient currently remains on hemodialysis and has been receiving daily treatments. Morning labs are pending at this time and patient will likely receive hemodialysis today. Patient is maintained on IV antibiotics in the form of cefepime and Flagyl and will continue at this time. Diflucan has been discontinued. Infectious disease is following. Review of systems: Unable to obtain as patient remains intubated and sedated Active Medications Acetaminophen (Acetaminophen Tab 500 Mg Tab) 1,000 mg PO Q6HR PRN PRN Reason: Fever and/ or Pain Last Admin: 08/21/20 10:19 Dose: 1,000 mg Documented by: Ascorbic Acid (Ascorbic Acid 500 Mg Tab) 1,000 mg PO DAILY [facility] Last Admin: 09/03/20 10:06 Dose: 1,000 mg Documented by: Aspirin (Aspirin 81 Mg) 81 mg PO HS [facility] Last Admin: 09/02/20 20:57 Dose: 81 mg Documented by: Chlorhexidine Gluconate (Chlorhexidine Gluconate 15 Ml Cup) 15 ml MUCOUS MEM BID [facility] Last Admin: 09/03/20 10:09 Dose: 15 ml Documented by: Dexamethasone Sodium Phosphate (Dexamethasone Sod Phosphate 10 Mg/Ml 1 Ml Vial) 6 mg IV DAILY [facility] Last Admin: 09/03/20 10:06 Dose: 6 mg Documented by: Enoxaparin Sodium (Enoxaparin 60 Mg/0.6 Ml Syringe) 60 mg SQ Q12HR [facility] Famotidine (Famotidine 20 Mg/2 Ml Vial) 20 mg IV DAILY [facility] Last Admin: 09/03/20 10:08 Dose: 20 mg Documented by: Hydromorphone HCl (Hydromorphone 1 Mg/Ml 1 Ml Syringe) 1 mg IVP Q2HR PRN PRN Reason: Pain Last Admin: 08/26/20 04:12 Dose: 1 mg Documented by: Propofol 1,000 mg/ IV Solution 100 mls @ 0 mls/hr IV .Q0M [facility]; Protocol Last Admin: 09/03/20 10:06 Dose: 55 mcg/kg/min, 39.831 mls/hr Documented by: Cisatracurium Besylate 200 mg/ (Sodium Chloride) 200 mls @ 5.994 mls/hr IV .Q24H [facility]; Protocol Last Titration: 09/02/20 12:37 Dose: 0 mcg/kg/min, 0 mls/hr Documented by: Insulin Human Regular 100 unit (/ Sodium Chloride) 101 mls @ 0 mls/hr IV .Q0M [facility]; Protocol Last Titration: 09/03/20 10:49 Dose: 0 units/hr, 0 mls/hr Documented by: Cefepime HCl 1 gm/ Sodium (Chloride) 50 mls @ 12.5 mls/hr IVPB Q12HR [facility] Last Admin: 09/03/20 10:05 Dose: 12.5 mls/hr Documented by: Metronidazole 500 mg/ IV (Solution) 100 mls @ 100 mls/hr IVPB Q8HR [facility] Last Admin: 09/03/20 10:05 Dose: 100 mls/hr Documented by: Lorazepam (Lorazepam 2 Mg/Ml Inj) 0.5 mg IV Q4HR PRN PRN Reason: Anxiety Last Admin: 08/25/20 08:13 Dose: 0.5 mg Documented by: Miscellaneous Information (Pneumonia Protocol Utilized 1 Each Misc) 1 each PO ONCE PRN PRN Reason: Per Protocol Sodium Bicarbonate (Sodium Bicarbonate Tab 650 Mg Tab) 650 mg PO TID [facility] Last Admin: 09/03/20 10:06 Dose: 650 mg Documented by: Zinc Sulfate (Zinc Sulfate 220 Mg Cap) 220 mg PO DAILY [facility] Last Admin: 09/03/20 10:08 Dose: 220 mg Documented by: Objective - Vital Signs Vital signs: Vital Signs Temp 98.5 F 09/03/20 04:00 Pulse 97 09/03/20 07:00 Resp 30 H 09/03/20 07:00 BP 118/59 09/03/20 07:00 Pulse Ox 91 L 09/03/20 07:00 Intake & Output 09/02/20 09/03/20 09/03/20 18:59 06:59 18:59 Intake Total 2041.909 1451.896 138.303 Output Total 3000 80 5 Balance -976.001 4523.896 133.303 Weight 120.7 kg Intake: IV 600 190.0 10 Cefepime 1 gm In Sodium 50 50.0 Chloride 0.9% 50 ml @ 12. 5 mls/hr IVPB Q12HR [facility] Rx#:[id number] Fluconazole in NaCl,Iso- 150 50 Osm 100 mg In Saline 1 50ml.bag @ 50 mls/hr IVPB DAILY [facility] Rx#:[id number] Sodium Chloride 0.9% 1, 400 30 000 ml @ 50 mls/hr IV . Q20H [facility] Rx#:[id number] sodium chloride @ 10ml hr 60 10 Intake, IV Titration 961.909 691.896 88.303 Amount Cisatracurium 200 mg In 319.680 Sodium Chloride 0.9% 180 ml @ 1 MCG/KG/MIN 5.994 mls/hr IV .Q24H [facility] Rx#: [id number] Heparin Sod,Pork in 0.45% 243.029 43.863 NaCl 25,000 unit In 0.45 % NaCl 1 250ml.bag @ 18 UNITS/KG/HR 21.78 mls/hr IV .[id number] [facility] Rx#: [id number] Insulin Regular 100 unit 153.133 48.867 44.44 In Sodium Chloride 0.9% 100 ml @ Per Protocol IV .Q0M [facility] Rx#:[id number] metroNIDAZOLE-NS PMX 500 100 mg In Saline 1 100ml.bag @ 100 mls/hr IVPB Q8HR [facility] Rx#:[id number] propofoL 1,000 mg In 389.096 400.000 Empty Bag 1 bag @ Titrate IV .Q0M [facility] Rx#: [id number] Tube Feeding 480 480 40 Other 90 Output: Urine 0 80 5 Hemodialysis 1500 Other 1500 Other: Voiding Method Indwelling Catheter Indwelling Catheter - Exam GENERAL: The patient is intubated and sedated. Temp is 98.5F, pulse is 97, respirations are 30, blood pressure is 118/59, oxygen saturation is 91% on mec hanical vent with an FiO2 of 70%. HEENT: Pupils are round and equally reacting to light. EOMI. No scleral icterus. No conjunctival pallor. Normocephalic, atraumatic. No pharyngeal erythema. No thyromegaly. ET tube noted to have shruthi blood, NG tube noted with blood as well CARDIOVASCULAR: S1 and S2 muffled. No murmurs, rubs, or gallops. PULMONARY: Bilateral scattered rhonchi and crackles, no wheezing noted diminished air entry bilaterally, tachypneic, 2 chest tubes noted on the right side and one on the left ABDOMEN: Soft, nontender, nondistended, normoactive bowel sounds. No palpable organomegaly. MUSCULOSKELETAL: No joint swelling or deformity. EXTREMITIES: No cyanosis, clubbing, or pedal edema. Bilateral upper and lower extremity edema noted on exam NEUROLOGICAL: Unable to fully assess as patient is intubated and sedated SKIN: No rashes. Note: Because of [place] [address] isolation, some of the history and physical exam findings are indirect and obtained from nursing staff, and other physician examinations to avoid unnecessary contact with the patient. - Labs CBC & Chem 7: 09/02/20 12:44 09/02/20 03:42 Labs: Abnormal Lab Results - Last 24 Hours (Table) 09/02/20 09/02/20 09/02/20 Range/Units 03:42 12:12 12:44 WBC 18.1 H (3.8-10.6) k/uL RBC 3.65 L (4.30-5.90) m/uL Hgb 10.7 L (13.0-17.5) gm/dL Hct 32.1 L (39.0-53.0) % Neutrophils # (Manual) 16.40 H (1.3-7.7) k/uL Lymphocytes # (Manual) 0.72 L (1.0-4.8) k/uL Metamyelocytes # (Man) 0.18 H (0) k/uL Myelocytes # (Manual) 0.36 H (0) k/uL APTT (22.0-30.0) sec ABG pH (7.35-7.45) ABG pCO2 (35-45) mmHg ABG pO2 (83-108) mmHg ABG O2 Saturation (94-97) % POC Glucose (mg/dL) 149 H (75-99) mg/dL Ferritin 1543.1 H (22.0-322.0) ng/mL 09/02/20 09/02/20 09/02/20 Range/Units 14:37 15:49 21:11 WBC (3.8-10.6) k/uL RBC (4.30-5.90) m/uL Hgb (13.0-17.5) gm/dL Hct (39.0-53.0) % Neutrophils # (Manual) (1.3-7.7) k/uL Lymphocytes # (Manual) (1.0-4.8) k/uL Metamyelocytes # (Man) (0) k/uL Myelocytes # (Manual) (0) k/uL APTT (22.0-30.0) sec ABG pH (7.35-7.45) ABG pCO2 (35-45) mmHg ABG pO2 (83-108) mmHg ABG O2 Saturation (94-97) % POC Glucose (mg/dL) 145 H 133 H 128 H (75-99) mg/dL Ferritin (22.0-322.0) ng/mL 09/02/20 09/03/20 09/03/20 Range/Units 22:12 00:09 00:15 WBC (3.8-10.6) k/uL RBC (4.30-5.90) m/uL Hgb (13.0-17.5) gm/dL Hct (39.0-53.0) % Neutrophils # (Manual) (1.3-7.7) k/uL Lymphocytes # (Manual) (1.0-4.8) k/uL Metamyelocytes # (Man) (0) k/uL Myelocytes # (Manual) (0) k/uL APTT 157.1 H* (22.0-30.0) sec ABG pH (7.35-7.45) ABG pCO2 (35-45) mmHg ABG pO2 (83-108) mmHg ABG O2 Saturation (94-97) % POC Glucose (mg/dL) 142 H 127 H (75-99) mg/dL Ferritin (22.0-322.0) ng/mL 09/03/20 09/03/20 09/03/20 Range/Units 02:17 04:07 05:34 WBC (3.8-10.6) k/uL RBC (4.30-5.90) m/uL Hgb (13.0-17.5) gm/dL Hct (39.0-53.0) % Neutrophils # (Manual) (1.3-7.7) k/uL Lymphocytes # (Manual) (1.0-4.8) k/uL Metamyelocytes # (Man) (0) k/uL Myelocytes # (Manual) (0) k/uL APTT (22.0-30.0) sec ABG pH 7.21 L (7.35-7.45) ABG pCO2 53 H (35-45) mmHg ABG pO2 70 L (83-108) mmHg ABG O2 Saturation 90.0 L (94-97) % POC Glucose (mg/dL) 127 H 139 H (75-99) mg/dL Ferritin (22.0-322.0) ng/mL 09/03/20 09/03/20 09/03/20 Range/Units 06:11 06:54 08:50 WBC (3.8-10.6) k/uL RBC (4.30-5.90) m/uL Hgb (13.0-17.5) gm/dL Hct (39.0-53.0) % Neutrophils # (Manual) (1.3-7.7) k/uL Lymphocytes # (Manual) (1.0-4.8) k/uL Metamyelocytes # (Man) (0) k/uL Myelocytes # (Manual) (0) k/uL APTT (22.0-30.0) sec ABG pH (7.35-7.45) ABG pCO2 (35-45) mmHg ABG pO2 (83-108) mmHg ABG O2 Saturation (94-97) % POC Glucose (mg/dL) 203 H 193 H 162 H (75-99) mg/dL Ferritin (22.0-322.0) ng/mL Microbiology - Last 24 Hours (Table) 08/31/20 18:35 Urine Culture - Final Urine,Catheterized Kristen albicans 08/31/20 17:21 Blood Culture - Preliminary Blood No Growth after 48 hours 09/01/20 06:24 Gram Stain - Preliminary Sputum Sputum Culture - Preliminary Kristen albicans Gram Neg Bacilli Assessment and Plan Assessment: -Covid 19 infection/pneumonia -Acute hypoxic, hypercapnic respiratory failure requiring mechanical ventilation -confirmed pneumoperitoneum as noted on CT -bilateral lower extremity deep vein thromboses -acute renal failure likely acute tubular necrosis, likely from vancomycin toxicity currently requiring hemodialysis -Acute respiratory arrest with hypoxia -Right side pneumothorax , small stable left-sided pneumothorax. -Type 2 diabetes mellitus, remains on insulin drip -mild hypovolemic hyponatremia -Hypertension: -DVT prophylaxis -GI prophylaxis Plan: Continue current medications and continue to monitor closely. Patient currently in the ICU for close monitoring. Patient is currently intubated and sedated. Maintained on IV antibiotics in the form of Cefepime and Flagyl. Pulmonary and infectious disease also following along with nephrology and surgery. Patient currently undergoing daily hemodialysis. CT of the abdomen confirmed pneumoperitoneum. Heparin has been discontinued as patient is having bleeding noted from the oral cavity. Awaiting receive a PICC line as he has limited access at this time. Patient continues on insulin drip and will continue at this time. Prognosis is extremely guarded and poor. Will continue to monitor vital signs and labs closely. Further recommendations to follow.
[2020-09-03 14:18] LABS: Basophils # (A) 0.1 k/uL (0-0.2); Basophils % (A) 0 %; Eosinophils # (A) 0.4 k/uL (0-0.7); Eosinophils % (A) 2 %; HCT 31.2 % (39.0-53.0); Hypochromasia Slight; Lymphocytes # (A) 0.2 k/uL (1.0-4.8); Lymphocytes % (A) 1 %; MCH 28.1 pg (25.0-35.0); MCHC 32.1 g/dL (31.0-37.0); MCV 87.4 fL (80.0-100.0); Mean Platelet Volume 8.3; Monocytes # (A) 0.4 k/uL (0-1.0); Monocytes % (A) 2 %; Neutrophils # (A) 18.9 k/uL (1.3-7.7); Neutrophils % (A) 95 %; Platelet Count 191 k/uL (150-450); RBC 3.57 m/uL (4.30-5.90); RDW 14.9 % (11.5-15.5)
[2020-09-03 14:30] LABS: Albumin 2.1 g/dL (3.5-5.0); Calcium 6.7 mg/dL (8.4-10.2); Magnesium 2.7 mg/dL (1.6-2.3); Potassium 5.5 mmol/L (3.5-5.1); Total Bilirubin 0.3 mg/dL (0.2-1.3); Total Protein 4.8 g/dL (6.3-8.2)
[2020-09-03 14:32] LABS: Partial Thromboplastin Time 30.1 sec (22.0-30.0); Prothrombin Time 10.3 sec (9.0-12.0)
[2020-09-03 14:45] LABS: Phosphorus 11.4 mg/dL (2.5-4.5)
--- NOTE | 2020-09-03 15:10 | XR ---
EXAMINATION TYPE: XR chest 1V portable DATE OF EXAM: 09/03/2020 Comparison: 09/02/2020 Clinical History: 59-year-old male Intubated Findings: ET tube is satisfactory. NG tube courses below the diaphragm beyond the [id number]. 2 chest tubes are present on either side. Trace left apical 8 mm pneumothorax. Extensive subcutaneous emphysema demetrice aterally. Diffuse interstitial and patchy airspace opacities persist throughout. Heart appears normal size. Some possible pneumomediastinum along the right heart margin. Impression: 1. 2 chest tubes on either side. Trace 8 mm left apical pneumothorax now seen. Possible subtle pneumo mediastinum on the right. 2. Diffuse interstitial and patchy airspace disease bilaterally not significantly changed. 3. Extensive subcutaneous emphysema.
[2020-09-03] MEDS ORDERED: LIDOCAINE 1% INJ 10MG/ML (20 ML MDV) SQ ONE (15:19)
[2020-09-03 16:14] LABS: Glucose,Whole Blood 197 mg/dL (75-99)
--- NOTE | 2020-09-03 16:38 | XR ---
EXAMINATION TYPE: XR chest 1V portable DATE OF EXAM: 09/03/2020 Comparison: 09/03/2020, earlier today Clinical History: 59-year-old male PICC PLACEMENT Findings: ET and NG tubes are satisfactory. Bilateral chest tubes are demonstrated. Trace left apical pneumotho rax persists currently measuring 7 mm versus 8 mm, earlier today. Diffuse bilateral interstitial and patchy infiltrates persist. Extensive bilateral subcutaneous emphysema persists. New right PICC line. The tip is anteverted superiorly possibly within the lower internal jugular vein . Impression: 1. New right PICC line. The tip is superiorly probably in the lower right internal jugular vein. 2. Trace left apical pneumothorax redemonstrated measuring 7 mm versus 8 mm earlier today. Bilateral chest tubes in place. 3. Continued diffuse bilateral interstitial and patchy airspace disease. Bilateral subcutaneous emphy sema.
--- NOTE | 2020-09-03 16:41 | PN ---
PROGRESS NOTE DATE OF SERVICE: 09/03/2020 REASON FOR FOLLOWUP: Pneumonia. INTERVAL HISTORY: The patient is currently afebrile. He is hemodynamically stable. The patient was noted to have significant bleeding in his mouth area. FiO2 is currently at 70%, which yesterday. He continues to have diarrhea, but no worsening per the nursing staff. PHYSICAL EXAMINATION: Pressure 104/52 with a pulse of 90, temperature 98.5. He is 91% on 70% FiO2. General description is an elderly male intubated on the vent. HEENT EXAMINATION: Significant bleeding around his mouth cavity. The patient is orally intubated. LUNGS: Unlabored breathing. Coarse breath sounds bilaterally. HEART: S1, S2. Tachycardic. ABDOMEN: Soft. EXTREMITIES: Two plus edema of feet. LABS: Hemoglobin is 10, white count 20. BUN of 106, creatinine 5.87. Sputum is now showing Pseudomonas. Previous sputum was MSSA. DIAGNOSTIC IMPRESSION AND PLAN: Patient with acute respiratory failure which is multifactorial in this patient who did have from COVID-19, now with evidence of bacterial pneumonia. Sputum did show MSSA, Pseudomonas. The patient covered with cefepime, which will be continued. The patient did have a DVT, now with evidence of bleeding. She was being monitored by the pulmonary clinic. Overall prognosis remains guarded. MMODL / IJN: [id number] /
--- NOTE | 2020-09-03 16:44 | IR ---
EXAMINATION TYPE: IR cvc insert >=5 years DATE OF EXAM: 09/03/2020 COMPARISON: NONE HISTORY: Covid pneumonia, needs long-term intravenous access for antibiotics, total parenteral nutrit ion FINDINGS: Maximal barrier technique was utilized. Hand hygiene obtained with soap and water and alco hol-based hand rub. The skin overlying the right brachial vein was localized with ultrasound and note d to be compressible and patent by ultrasound. An ultrasound image was obtained and submitted on pat ient's chart. Sterile technique utilized with the ultrasound machine. The skin overlying was prepped and draped and Lidocaine used for local anesthesia. A skin meño was made with a scalpel. Access was gained to the vein under direct ultrasound guidance with a 21-gauge needle and a 0.018 inch wire was advanced. Access site was dilated with a peel-away sheath and the catheter tailored to length. Cat heter advanced centrally and a post procedure chest x-ray verified placement with the catheter direct ed cephalad, catheter was subsequently manipulated with the wire and directed sensitivity is within t he superior vena cava with the wire present within the catheter. Wire was subsequently removed. Cath eter was aspirated and flushed with sterile saline. Catheter was fixed to the skin and a sterile jenifer ssing placed. Hemostasis achieved and the catheter was aspirated and flushed with sterile saline. T he patient remained in stable condition. IMPRESSION: STATUS POST ULTRASOUND GUIDED PICC LINE PLACEMENT, READY FOR USE. THIS PROCEDURE WAS PER FORMED BY THE UNDERSIGNED.
--- NOTE | 2020-09-03 16:45 | XR ---
EXAMINATION TYPE: XR chest 1V portable DATE OF EXAM: 09/03/2020 COMPARISON: Prior chest x-ray 09/03/2020 HISTORY: Status post PICC line placement TECHNIQUE: Single frontal view of the chest is obtained. FINDINGS: PICC line has been manipulated such that the distal tip is coursing into the superior vena cava, wire present within the PICC line, no significant interval change IMPRESSION: Interval PICC line manipulation described
[2020-09-03] MEDS: CALCIUM ACETATE 667 MG TAB PO SCH (17:26)
[2020-09-03 17:39] LABS: Glucose,Whole Blood 174 mg/dL (75-99)
[2020-09-03] MEDS: INSULIN ASPART (NovoLOG) 100 UNIT/ML VIAL SQ SCH (18:27)
[2020-09-03 19:10] LABS: Glucose,Whole Blood 155 mg/dL (75-99)
[2020-09-03] MEDS: ASPIRIN 81 MG PO SCH (20:29)
[2020-09-03] MEDS: ENOXAPARIN 60 MG/0.6 ML SYRINGE SQ SCH (20:31)
[2020-09-03 21:08] LABS: Glucose,Whole Blood 176 mg/dL (75-99)
[2020-09-03 23:53] LABS: Glucose,Whole Blood 117 mg/dL (75-99)
[2020-09-04 02:07] LABS: Glucose,Whole Blood 125 mg/dL (75-99)
[2020-09-04] MEDS: INSULIN REGULAR 100 UNIT in SODIUM CHLORIDE 0.9% 100 ML IV SCH ×2 (04:15→15:42)
[2020-09-04 04:31] LABS: Glucose,Whole Blood 164 mg/dL (75-99)
[2020-09-04 05:21] LABS: Basophils # (A) 0.1 k/uL (0-0.2); Basophils % (A) 1 %; Eosinophils # (A) 0.3 k/uL (0-0.7); Eosinophils % (A) 2 %; HCT 31.1 % (39.0-53.0); HGB 9.9 gm/dL (13.0-17.5); Hypochromasia Slight; Lymphocytes # (A) 0.3 k/uL (1.0-4.8); Lymphocytes % (A) 2 %; MCH 27.9 pg (25.0-35.0); MCHC 31.8 g/dL (31.0-37.0); MCV 87.9 fL (80.0-100.0); Mean Platelet Volume 8.2; Monocytes # (A) 0.6 k/uL (0-1.0); Monocytes % (A) 3 %; Neutrophils # (A) 16.3 k/uL (1.3-7.7); Neutrophils % (A) 93 %; Platelet Count 194 k/uL (150-450); RBC 3.54 m/uL (4.30-5.90); WBC 17.6 k/uL (3.8-10.6)
[2020-09-04 05:28] LABS: Albumin 2.2 g/dL (3.5-5.0); C Reactive Protein 63.5 mg/L (<10.0); Calcium 7.1 mg/dL (8.4-10.2); Total Bilirubin 0.4 mg/dL (0.2-1.3); Total Protein 4.9 g/dL (6.3-8.2)
[2020-09-04 05:46] LABS: Phosphorus 9.8 mg/dL (2.5-4.5)
[2020-09-04 05:49] LABS: Allen Test Performed? Yes
[2020-09-04 05:50] LABS: ABG Base Excess -5.2 mmol/L; ABG HCO3 22 mmol/L (21-25); ABG PCO2 48 mmHg (35-45); ABG PH 7.26 (7.35-7.45); ABG PO2 81 mmHg (83-108); ABG TCO2 23 mmol/L (19-24)
[2020-09-04 06:11] LABS: Glucose,Whole Blood 182 mg/dL (75-99)
--- NOTE | 2020-09-04 06:58 | XR ---
EXAMINATION TYPE: XR chest 1V portable DATE OF EXAM: 09/04/2020 CLINICAL HISTORY: Difficulty breathing progress study. TECHNIQUE: Single AP portable semiupright view of the chest is obtained. COMPARISON: Chest x-ray from one day earlier and older studies. Chest CT September 01, 2020 FINDINGS: Persistent 2 right-sided chest tubes and single coiled left-sided chest tube. One right-si ded chest tube has side port outside the pleural space on current study with new small right basilar lateral pneumothorax. Stable endotracheal and orogastric tubes. Subcutaneous air right greater than left supraclavicular region redemonstrated. Pneumomediastinum remains present over left heart border. Cardiac silhouette size stable and within n ormal limits with atherosclerotic change aortic knob. Persistent low lung volumes with bilateral incr eased opacities . Prominent multilevel spurring in the mid to lower thoracic spine. IMPRESSION: Low lung volumes with persistent bilateral diffuse edema and/or infiltrates. Suspect ARDS . New small lateral right basilar pneumothorax with bilateral chest tubes. The right basilar chest tu be is believed dislodged from the pleural space. Results communicated to patient's ICU nurse via telephone at time of dictation.
[2020-09-04] MEDS ORDERED: ROCURONIUM 10 MG/ML (10 ML VIAL) IV ONE (07:46)
[2020-09-04 08:01] LABS: Glucose,Whole Blood 151 mg/dL (75-99)
[2020-09-04] MEDS ORDERED: NOREPINEPHRIN 4 MG-0.9% NS PMX 4 MG/250 ML ML IV ONE (08:41)
[2020-09-04] MEDS: NOREPINEPHRINE 4 MG in SODIUM CHLORIDE 0.9% 250 ML IV SCH ×3 (08:50→20:43)
[2020-09-04] MEDS: ZINC SULFATE 220 MG CAP PO SCH (08:54)
[2020-09-04] MEDS: CALCIUM ACETATE 667 MG TAB PO SCH ×3 (08:54→17:12)
[2020-09-04] MEDS: SODIUM BICARBONATE TAB 650 MG TAB PO SCH ×3 (08:54→20:33)
[2020-09-04] MEDS: ASCORBIC ACID 500 MG TAB PO SCH (08:54)
[2020-09-04] MEDS: CHLORHEXIDINE GLUCONATE 15 ML CUP MUCOUS MEM SCH ×2 (08:54→20:33)
[2020-09-04] MEDS: FAMOTIDINE 20 MG/2 ML VIAL IV SCH (08:54)
[2020-09-04] MEDS: DEXAMETHASONE SOD PHOSPHATE 10 MG/ML 1 ML VIAL IV SCH (08:55)
[2020-09-04] MEDS: ENOXAPARIN 60 MG/0.6 ML SYRINGE SQ SCH (08:56)
[2020-09-04] MEDS: metroNIDAZOLE-NS PMX 500 MG in SALINE 1 100ML.BAG IVPB SCH ×2 (08:56→16:35)
[2020-09-04] MEDS: CEFEPIME 1 GM in SODIUM CHLORIDE 0.9% 50 ML IVPB SCH ×2 (08:56→20:33)
[2020-09-04 09:33] LABS: Ferritin 1264.8 ng/mL (22.0-322.0)
--- NOTE | 2020-09-04 09:50 | P.PN ---
Subjective Patient is seen in follow-up for acute kidney injury. Creatinine peaked at 6.5 as of August 31. He was started on hemodialysis for low urine output and volume overload. Remains oliguric. Diuretic unresponsive. Currently on 70% FiO2. Intubated. Tolerated 2 L ultrafiltration yesterday. He is receiving tube feeding. He's currently on 10 mics of Levophed. Vital signs are stable. Intubated. Regular rhythm noted on the monitor. No distention noted. 2+ edema. Exam discussed in detail with the nurse. Objective - Vital Signs Vital signs: Vital Signs Temp 98.3 F 09/03/20 16:00 Pulse 99 09/04/20 06:00 Resp 27 H 09/04/20 06:00 BP 113/51 09/04/20 06:00 Pulse Ox 95 09/04/20 06:00 Intake & Output 09/03/20 09/04/20 09/04/20 18:59 06:59 18:59 Intake Total 4704.886 3476.178 35.35 Output Total 2075 25 Balance -686.000 8100.178 35.35 Weight 120.7 kg 122.3 kg Intake: IV 255 370 Cefepime 1 gm In Sodium 50 50 Chloride 0.9% 50 ml @ 12. 5 mls/hr IVPB Q12HR [facility] Rx#:[id number] Fluconazole in NaCl,Iso- 50 100 Osm 100 mg In Saline 1 50ml.bag @ 50 mls/hr IVPB DAILY [facility] Rx#:[id number] sodium chloride @ 10ml hr 155 220 Intake, IV Titration 645.527 339.178 35.35 Amount Heparin Sod,Pork in 0.45% 43.863 NaCl 25,000 unit In 0.45 % NaCl 1 250ml.bag @ 18 UNITS/KG/HR 21.78 mls/hr IV .[id number] [facility] Rx#: [id number] Insulin Regular 100 unit 101.000 139.178 35.35 In Sodium Chloride 0.9% 100 ml @ Per Protocol IV .Q0M [facility] Rx#:[id number] metroNIDAZOLE-NS PMX 500 200 mg In Saline 1 100ml.bag @ 100 mls/hr IVPB Q8HR [facility] Rx#:[id number] propofoL 1,000 mg In 300.664 200 Empty Bag 1 bag @ Titrate IV .Q0M [facility] Rx#: [id number] Tube Feeding 386 340 Other 120 150 Output: Chest Tube Drainage 50 0 Chest Tube Right 0 0 Chest Tube Right Upper 50 0 Left Upper Anterior Chest 0 Urine 25 25 Hemodialysis 1999 Other: Voiding Method Indwelling Catheter Indwelling Catheter - Labs CBC & Chem 7: 09/04/20 04:39 09/04/20 04:39 Labs: Abnormal Lab Results - Last 24 Hours (Table) 09/03/20 09/03/20 09/03/20 Range/Units 10:43 13:15 14:00 WBC 20.0 H (3.8-10.6) k/uL RBC 3.57 L (4.30-5.90) m/uL Hgb 10.0 L (13.0-17.5) gm/dL Hct 31.2 L (39.0-53.0) % Neutrophils # 18.9 H (1.3-7.7) k/uL Lymphocytes # 0.2 L (1.0-4.8) k/uL APTT (22.0-30.0) sec D-Dimer (<0.60) mg/L FEU ABG pH (7.35-7.45) ABG pCO2 (35-45) mmHg ABG pO2 (83-108) mmHg Sodium (137-145) mmol/L Potassium (3.5-5.1) mmol/L BUN (9-20) mg/dL Creatinine (0.66-1.25) mg/dL Glucose (74-99) mg/dL POC Glucose (mg/dL) 125 H 135 H (75-99) mg/dL Calcium (8.4-10.2) mg/dL Phosphorus (2.5-4.5) mg/dL Magnesium (1.6-2.3) mg/dL Ferritin (22.0-322.0) ng/mL Alkaline Phosphatase (38-126) U/L Lactate Dehydrogenase (313-618) U/L Creatine Kinase (55-170) U/L C-Reactive Protein (<10.0) mg/L Total Protein (6.3-8.2) g/dL Albumin (3.5-5.0) g/dL 09/03/20 09/03/20 09/03/20 Range/Units 14:00 14:00 16:13 WBC (3.8-10.6) k/uL RBC (4.30-5.90) m/uL Hgb (13.0-17.5) gm/dL Hct (39.0-53.0) % Neutrophils # (1.3-7.7) k/uL Lymphocytes # (1.0-4.8) k/uL APTT 30.1 H (22.0-30.0) sec D-Dimer (<0.60) mg/L FEU ABG pH (7.35-7.45) ABG pCO2 (35-45) mmHg ABG pO2 (83-108) mmHg Sodium 132 L (137-145) mmol/L Potassium 5.5 H (3.5-5.1) mmol/L BUN 106 H* (9-20) mg/dL Creatinine 5.87 H (0.66-1.25) mg/dL Glucose 157 H (74-99) mg/dL POC Glucose (mg/dL) 197 H (75-99) mg/dL Calcium 6.7 L (8.4-10.2) mg/dL Phosphorus 11.4 H* (2.5-4.5) mg/dL Magnesium 2.7 H (1.6-2.3) mg/dL Ferritin (22.0-322.0) ng/mL Alkaline Phosphatase 206 H (38-126) U/L Lactate Dehydrogenase (313-618) U/L Creatine Kinase (55-170) U/L C-Reactive Protein (<10.0) mg/L Total Protein 4.8 L (6.3-8.2) g/dL Albumin 2.1 L (3.5-5.0) g/dL 09/03/20 09/03/20 09/03/20 Range/Units 17:38 19:08 21:06 WBC (3.8-10.6) k/uL RBC (4.30-5.90) m/uL Hgb (13.0-17.5) gm/dL Hct (39.0-53.0) % Neutrophils # (1.3-7.7) k/uL Lymphocytes # (1.0-4.8) k/uL APTT (22.0-30.0) sec D-Dimer (<0.60) mg/L FEU ABG pH (7.35-7.45) ABG pCO2 (35-45) mmHg ABG pO2 (83-108) mmHg Sodium (137-145) mmol/L Potassium (3.5-5.1) mmol/L BUN (9-20) mg/dL Creatinine (0.66-1.25) mg/dL Glucose (74-99) mg/dL POC Glucose (mg/dL) 174 H 155 H 176 H (75-99) mg/dL Calcium (8.4-10.2) mg/dL Phosphorus (2.5-4.5) mg/dL Magnesium (1.6-2.3) mg/dL Ferritin (22.0-322.0) ng/mL Alkaline Phosphatase (38-126) U/L Lactate Dehydrogenase (313-618) U/L Creatine Kinase (55-170) U/L C-Reactive Protein (<10.0) mg/L Total Protein (6.3-8.2) g/dL Albumin (3.5-5.0) g/dL 09/03/20 09/04/20 09/04/20 Range/Units 23:51 02:05 04:29 WBC (3.8-10.6) k/uL RBC (4.30-5.90) m/uL Hgb (13.0-17.5) gm/dL Hct (39.0-53.0) % Neutrophils # (1.3-7.7) k/uL Lymphocytes # (1.0-4.8) k/uL APTT (22.0-30.0) sec D-Dimer (<0.60) mg/L FEU ABG pH (7.35-7.45) ABG pCO2 (35-45) mmHg ABG pO2 (83-108) mmHg Sodium (137-145) mmol/L Potassium (3.5-5.1) mmol/L BUN (9-20) mg/dL Creatinine (0.66-1.25) mg/dL Glucose (74-99) mg/dL POC Glucose (mg/dL) 117 H 125 H 164 H (75-99) mg/dL Calcium (8.4-10.2) mg/dL Phosphorus (2.5-4.5) mg/dL Magnesium (1.6-2.3) mg/dL Ferritin (22.0-322.0) ng/mL Alkaline Phosphatase (38-126) U/L Lactate Dehydrogenase (313-618) U/L Creatine Kinase (55-170) U/L C-Reactive Protein (<10.0) mg/L Total Protein (6.3-8.2) g/dL Albumin (3.5-5.0) g/dL 09/04/20 09/04/20 09/04/20 Range/Units 04:39 04:39 04:39 WBC 17.6 H (3.8-10.6) k/uL RBC 3.54 L (4.30-5.90) m/uL Hgb 9.9 L (13.0-17.5) gm/dL Hct 31.1 L (39.0-53.0) % Neutrophils # 16.3 H (1.3-7.7) k/uL Lymphocytes # 0.3 L (1.0-4.8) k/uL APTT (22.0-30.0) sec D-Dimer 2.90 H (<0.60) mg/L FEU ABG pH (7.35-7.45) ABG pCO2 (35-45) mmHg ABG pO2 (83-108) mmHg Sodium 135 L (137-145) mmol/L Potassium (3.5-5.1) mmol/L BUN 90 H (9-20) mg/dL Creatinine 5.37 H (0.66-1.25) mg/dL Glucose 155 H (74-99) mg/dL POC Glucose (mg/dL) (75-99) mg/dL Calcium 7.1 L (8.4-10.2) mg/dL Phosphorus 9.8 H* (2.5-4.5) mg/dL Magnesium (1.6-2.3) mg/dL Ferritin 1264.8 H (22.0-322.0) ng/mL Alkaline Phosphatase 174 H (38-126) U/L Lactate Dehydrogenase 1236 H (313-618) U/L Creatine Kinase 432 H (55-170) U/L C-Reactive Protein 63.5 H (<10.0) mg/L Total Protein 4.9 L (6.3-8.2) g/dL Albumin 2.2 L (3.5-5.0) g/dL 12/04/20 12/04/20 12/04/20 Range/Units 05:36 06:10 07:59 WBC (3.8-10.6) k/uL RBC (4.30-5.90) m/uL Hgb (13.0-17.5) gm/dL Hct (39.0-53.0) % Neutrophils # (1.3-7.7) k/uL Lymphocytes # (1.0-4.8) k/uL APTT (22.0-30.0) sec D-Dimer (<0.60) mg/L FEU ABG pH 7.26 L (7.35-7.45) ABG pCO2 48 H (35-45) mmHg ABG pO2 81 L (83-108) mmHg Sodium (137-145) mmol/L Potassium (3.5-5.1) mmol/L BUN (9-20) mg/dL Creatinine (0.66-1.25) mg/dL Glucose (74-99) mg/dL POC Glucose (mg/dL) 182 H 151 H (75-99) mg/dL Calcium (8.4-10.2) mg/dL Phosphorus (2.5-4.5) mg/dL Magnesium (1.6-2.3) mg/dL Ferritin (22.0-322.0) ng/mL Alkaline Phosphatase (38-126) U/L Lactate Dehydrogenase (313-618) U/L Creatine Kinase (55-170) U/L C-Reactive Protein (<10.0) mg/L Total Protein (6.3-8.2) g/dL Albumin (3.5-5.0) g/dL Microbiology - Last 24 Hours (Table) 08/31/20 17:21 Blood Culture - Preliminary Blood No Growth after 72 hours 09/01/20 06:24 Gram Stain - Final Sputum Sputum Culture - Final Kristen albicans Pseudomonas aeruginosa Assessment and Plan Plan: Assessment: 1. Acute kidney injury secondary to ATN secondary to vancomycin toxicity and sepsis. Creatinine peaked at 6.51 as of August 31. Started on hemodialysis for low urine output and volume overload. Oliguric. Diuretic unresponsive. 2. Hyperkalemia secondary to acute kidney injury and lisinopril. Improved postdialysis. 3. Acute hypoxic and hypercapnic respiratory failure. 4. Covid 19 pneumonia maintained on steroids and zinc now. 5. Respiratory and metabolic acidosis. Maintained on oral bicarbonate. 6. Pneumothorax status post bilateral chest tube placement. 7. Lower extremity DVT maintained on Lovenox. 8. Septic shock maintained on Levophed. 9. Hyperphosphatemia secondary to acute kidney injury maintained on PhosLo. Plan: Hemodialysis today with goal ultrafiltration 1-2 L as able to tolerate. Continue to assess daily for need for renal replacement therapy. Wean FiO2 and vasopressors.
[2020-09-04 10:33] LABS: Glucose,Whole Blood 125 mg/dL (75-99)
[2020-09-04 10:33] LABS: Glucose,Whole Blood 64 mg/dL (75-99)
[2020-09-04 12:48] LABS: Glucose,Whole Blood 156 mg/dL (75-99)
--- NOTE | 2020-09-04 13:12 | P.PN ---
Subjective Progress Note Date: 09/04/20 CHIEF COMPLAINT: Free air noted on CT of chest HISTORY OF PRESENT ILLNESS: Patient is being followed for the pneumoperitoneum which is due to patient's pneumothorax. Patient remains intubated, sedated and paralyzed in ICU. Patient receiving hemodialysis today. He still requiring Levophed. Afebrile WBC 17.6 hemoglobin 9.9 PHYSICAL EXAM: VITAL SIGNS: Reviewed. GENERAL: Well-developed in no acute distress. HEENT: No sclera icterus. Extraocular movements grossly intact. Moist buccal mucosa. Head is atraumatic, normocephalic. ABDOMEN: Soft. Nondistended. Nontender. NEUROLOGIC: Intubated and sedated ASSESSMENT: 1. Pneumoperitoneum likely due to pneumothorax 2. Covid 19 infection 3. Bilateral pneumothoraces status post bilateral chest tube placement 4. Acute kidney injury secondary to ATN and vancomycin toxicity. Patient has been started on hemodialysis 5. Acute hypoxic and hypercapnic respiratory failure 6. Bilateral lower extremity DVT PLAN: -Continue supportive care -No surgical intervention planned Physician Signals Collector/Analyst note has been reviewed by physician. Signing provider agrees with the documented findings, assessment, and plan of care. Objective - Vital Signs Vital signs: Vital Signs Temp 98.7 F 09/04/20 08:00 Pulse 93 09/04/20 11:45 Resp 34 H 09/04/20 11:45 BP 134/62 09/04/20 10:15 Pulse Ox 91 L 09/04/20 11:45 Intake & Output 09/03/20 09/04/20 09/04/20 18:59 06:59 18:59 Intake Total 2275.481 5260.178 326.706 Output Total 2075 25 Balance -698.443 5755.178 326.706 Weight 120.7 kg 122.3 kg Intake: IV 255 370 Cefepime 1 gm In Sodium 50 50 Chloride 0.9% 50 ml @ 12. 5 mls/hr IVPB Q12HR [facility] Rx#:[id number] Fluconazole in NaCl,Iso- 50 100 Osm 100 mg In Saline 1 50ml.bag @ 50 mls/hr IVPB DAILY [facility] Rx#:[id number] sodium chloride @ 10ml hr 155 220 Intake, IV Titration 645.527 339.178 326.706 Amount Heparin Sod,Pork in 0.45% 43.863 NaCl 25,000 unit In 0.45 % NaCl 1 250ml.bag @ 18 UNITS/KG/HR 21.78 mls/hr IV .[id number] [facility] Rx#: [id number] Insulin Regular 100 unit 101.000 139.178 62.822 In Sodium Chloride 0.9% 100 ml @ Per Protocol IV .Q0M [facility] Rx#:[id number] Norepinephrine 4 mg In 163.22 Sodium Chloride 0.9% 250 ml @ 0.1 MCG/KG/MIN 38. 862 mls/hr IV .[id number] [facility] Rx#:[id number] metroNIDAZOLE-NS PMX 500 200 mg In Saline 1 100ml.bag @ 100 mls/hr IVPB Q8HR [facility] Rx#:[id number] propofoL 1,000 mg In 300.664 200 100.664 Empty Bag 1 bag @ Titrate IV .Q0M [facility] Rx#: [id number] Tube Feeding 386 340 Other 120 150 Output: Chest Tube Drainage 50 0 Chest Tube Right 0 0 Chest Tube Right Upper 50 0 Left Upper Anterior Chest 0 Urine 25 25 Hemodialysis 1999 Other: Voiding Method Indwelling Catheter Indwelling Catheter ABP, PAP, CO, CI - Last Documented Arterial Blood Pressure 132/56 - Labs CBC & Chem 7: 09/04/20 04:39 09/04/20 04:39 Labs: Abnormal Lab Results - Last 24 Hours (Table) 09/03/20 09/03/20 09/03/20 Range/Units 13:15 14:00 14:00 WBC 20.0 H (3.8-10.6) k/uL RBC 3.57 L (4.30-5.90) m/uL Hgb 10.0 L (13.0-17.5) gm/dL Hct 31.2 L (39.0-53.0) % Neutrophils # 18.9 H (1.3-7.7) k/uL Lymphocytes # 0.2 L (1.0-4.8) k/uL APTT 30.1 H (22.0-30.0) sec D-Dimer (<0.60) mg/L FEU ABG pH (7.35-7.45) ABG pCO2 (35-45) mmHg ABG pO2 (83-108) mmHg Sodium (137-145) mmol/L Potassium (3.5-5.1) mmol/L BUN (9-20) mg/dL Creatinine (0.66-1.25) mg/dL Glucose (74-99) mg/dL POC Glucose (mg/dL) 135 H (75-99) mg/dL Calcium (8.4-10.2) mg/dL Phosphorus (2.5-4.5) mg/dL Magnesium (1.6-2.3) mg/dL Ferritin (22.0-322.0) ng/mL Alkaline Phosphatase (38-126) U/L Lactate Dehydrogenase (313-618) U/L Creatine Kinase (55-170) U/L C-Reactive Protein (<10.0) mg/L Total Protein (6.3-8.2) g/dL Albumin (3.5-5.0) g/dL 09/03/20 09/03/20 09/03/20 Range/Units 14:00 16:13 17:38 WBC (3.8-10.6) k/uL RBC (4.30-5.90) m/uL Hgb (13.0-17.5) gm/dL Hct (39.0-53.0) % Neutrophils # (1.3-7.7) k/uL Lymphocytes # (1.0-4.8) k/uL APTT (22.0-30.0) sec D-Dimer (<0.60) mg/L FEU ABG pH (7.35-7.45) ABG pCO2 (35-45) mmHg ABG pO2 (83-108) mmHg Sodium 132 L (137-145) mmol/L Potassium 5.5 H (3.5-5.1) mmol/L BUN 106 H* (9-20) mg/dL Creatinine 5.87 H (0.66-1.25) mg/dL Glucose 157 H (74-99) mg/dL POC Glucose (mg/dL) 197 H 174 H (75-99) mg/dL Calcium 6.7 L (8.4-10.2) mg/dL Phosphorus 11.4 H* (2.5-4.5) mg/dL Magnesium 2.7 H (1.6-2.3) mg/dL Ferritin (22.0-322.0) ng/mL Alkaline Phosphatase 206 H (38-126) U/L Lactate Dehydrogenase (313-618) U/L Creatine Kinase (55-170) U/L C-Reactive Protein (<10.0) mg/L Total Protein 4.8 L (6.3-8.2) g/dL Albumin 2.1 L (3.5-5.0) g/dL 09/03/20 09/03/20 09/03/20 Range/Units 19:08 21:06 23:51 WBC (3.8-10.6) k/uL RBC (4.30-5.90) m/uL Hgb (13.0-17.5) gm/dL Hct (39.0-53.0) % Neutrophils # (1.3-7.7) k/uL Lymphocytes # (1.0-4.8) k/uL APTT (22.0-30.0) sec D-Dimer (<0.60) mg/L FEU ABG pH (7.35-7.45) ABG pCO2 (35-45) mmHg ABG pO2 (83-108) mmHg Sodium (137-145) mmol/L Potassium (3.5-5.1) mmol/L BUN (9-20) mg/dL Creatinine (0.66-1.25) mg/dL Glucose (74-99) mg/dL POC Glucose (mg/dL) 155 H 176 H 117 H (75-99) mg/dL Calcium (8.4-10.2) mg/dL Phosphorus (2.5-4.5) mg/dL Magnesium (1.6-2.3) mg/dL Ferritin (22.0-322.0) ng/mL Alkaline Phosphatase (38-126) U/L Lactate Dehydrogenase (313-618) U/L Creatine Kinase (55-170) U/L C-Reactive Protein (<10.0) mg/L Total Protein (6.3-8.2) g/dL Albumin (3.5-5.0) g/dL 09/04/20 09/04/20 09/04/20 Range/Units 02:05 04:29 04:39 WBC 17.6 H (3.8-10.6) k/uL RBC 3.54 L (4.30-5.90) m/uL Hgb 9.9 L (13.0-17.5) gm/dL Hct 31.1 L (39.0-53.0) % Neutrophils # 16.3 H (1.3-7.7) k/uL Lymphocytes # 0.3 L (1.0-4.8) k/uL APTT (22.0-30.0) sec D-Dimer (<0.60) mg/L FEU ABG pH (7.35-7.45) ABG pCO2 (35-45) mmHg ABG pO2 (83-108) mmHg Sodium (137-145) mmol/L Potassium (3.5-5.1) mmol/L BUN (9-20) mg/dL Creatinine (0.66-1.25) mg/dL Glucose (74-99) mg/dL POC Glucose (mg/dL) 125 H 164 H (75-99) mg/dL Calcium (8.4-10.2) mg/dL Phosphorus (2.5-4.5) mg/dL Magnesium (1.6-2.3) mg/dL Ferritin (22.0-322.0) ng/mL Alkaline Phosphatase (38-126) U/L Lactate Dehydrogenase (313-618) U/L Creatine Kinase (55-170) U/L C-Reactive Protein (<10.0) mg/L Total Protein (6.3-8.2) g/dL Albumin (3.5-5.0) g/dL 09/04/20 09/04/20 09/04/20 Range/Units 04:39 04:39 05:36 WBC (3.8-10.6) k/uL RBC (4.30-5.90) m/uL Hgb (13.0-17.5) gm/dL Hct (39.0-53.0) % Neutrophils # (1.3-7.7) k/uL Lymphocytes # (1.0-4.8) k/uL APTT (22.0-30.0) sec D-Dimer 2.90 H (<0.60) mg/L FEU ABG pH 7.26 L (7.35-7.45) ABG pCO2 48 H (35-45) mmHg ABG pO2 81 L (83-108) mmHg Sodium 135 L (137-145) mmol/L Potassium (3.5-5.1) mmol/L BUN 90 H (9-20) mg/dL Creatinine 5.37 H (0.66-1.25) mg/dL Glucose 155 H (74-99) mg/dL POC Glucose (mg/dL) (75-99) mg/dL Calcium 7.1 L (8.4-10.2) mg/dL Phosphorus 9.8 H* (2.5-4.5) mg/dL Magnesium (1.6-2.3) mg/dL Ferritin 1264.8 H (22.0-322.0) ng/mL Alkaline Phosphatase 174 H (38-126) U/L Lactate Dehydrogenase 1236 H (313-618) U/L Creatine Kinase 432 H (55-170) U/L C-Reactive Protein 63.5 H (<10.0) mg/L Total Protein 4.9 L (6.3-8.2) g/dL Albumin 2.2 L (3.5-5.0) g/dL 09/04/20 09/04/20 09/04/20 Range/Units 06:10 07:59 10:28 WBC (3.8-10.6) k/uL RBC (4.30-5.90) m/uL Hgb (13.0-17.5) gm/dL Hct (39.0-53.0) % Neutrophils # (1.3-7.7) k/uL Lymphocytes # (1.0-4.8) k/uL APTT (22.0-30.0) sec D-Dimer (<0.60) mg/L FEU ABG pH (7.35-7.45) ABG pCO2 (35-45) mmHg ABG pO2 (83-108) mmHg Sodium (137-145) mmol/L Potassium (3.5-5.1) mmol/L BUN (9-20) mg/dL Creatinine (0.66-1.25) mg/dL Glucose (74-99) mg/dL POC Glucose (mg/dL) 182 H 151 H 64 L (75-99) mg/dL Calcium (8.4-10.2) mg/dL Phosphorus (2.5-4.5) mg/dL Magnesium (1.6-2.3) mg/dL Ferritin (22.0-322.0) ng/mL Alkaline Phosphatase (38-126) U/L Lactate Dehydrogenase (313-618) U/L Creatine Kinase (55-170) U/L C-Reactive Protein (<10.0) mg/L Total Protein (6.3-8.2) g/dL Albumin (3.5-5.0) g/dL 09/04/20 09/04/20 Range/Units 10:30 12:44 WBC (3.8-10.6) k/uL RBC (4.30-5.90) m/uL Hgb (13.0-17.5) gm/dL Hct (39.0-53.0) % Neutrophils # (1.3-7.7) k/uL Lymphocytes # (1.0-4.8) k/uL APTT (22.0-30.0) sec D-Dimer (<0.60) mg/L FEU ABG pH (7.35-7.45) ABG pCO2 (35-45) mmHg ABG pO2 (83-108) mmHg Sodium (137-145) mmol/L Potassium (3.5-5.1) mmol/L BUN (9-20) mg/dL Creatinine (0.66-1.25) mg/dL Glucose (74-99) mg/dL POC Glucose (mg/dL) 125 H 156 H (75-99) mg/dL Calcium (8.4-10.2) mg/dL Phosphorus (2.5-4.5) mg/dL Magnesium (1.6-2.3) mg/dL Ferritin (22.0-322.0) ng/mL Alkaline Phosphatase (38-126) U/L Lactate Dehydrogenase (313-618) U/L Creatine Kinase (55-170) U/L C-Reactive Protein (<10.0) mg/L Total Protein (6.3-8.2) g/dL Albumin (3.5-5.0) g/dL Microbiology - Last 24 Hours (Table) 08/31/20 17:21 Blood Culture - Preliminary Blood No Growth after 72 hours 09/01/20 06:24 Gram Stain - Final Sputum Sputum Culture - Final Kristen albicans Pseudomonas aeruginosa
[2020-09-04] MEDS ORDERED: HEPARIN SODIUM,PORCINE 5,000 UNIT/ML 1 ML VIAL ONE (14:00)
[2020-09-04 14:31] LABS: ABG HCO3 23 mmol/L (21-25); ABG PCO2 58 mmHg (35-45); ABG PH 7.21 (7.35-7.45); ABG PO2 69 mmHg (83-108); Allen Test Performed? no
[2020-09-04 14:32] LABS: ABG Base Excess -4.7 mmol/L; ABG TCO2 25 mmol/L (19-24)
--- NOTE | 2020-09-04 15:59 | P.PN ---
Subjective Progress Note Date: 09/04/20 (Critical care time 45 minutes) Principal diagnosis: Right spontaneous pneumothorax status post 2 chest tubes Pneumomediastinum Left spontaneous pneumothorax Acute hypoxic respiratory failure Covid 19 pneumonia Type 2 diabetes mellitus Hypertension hypertensive cardiovascular disease Dehydration hypovolemia and hyponatremia Depression 09/04/2020, patient seen eval examined, labs reviewed medications reviewed care plan discussed with the staff and primary care service as well, patient has a significant drop in volumes on ventilator significant air leak has been noted, ET tube has been changed by anesthesia, volume 7 improved however some desaturation noted requiring increase in oxygen saturation, patient however hemodynamically marginal is now requiring levo fed drip, right-sided chest tube continued to air leak significantly, sided chest tube was stable, noted however basal hip is still in, 09/03/2020, patient seen eval reexamined during the rounds labs reviewed medications reviewed care plan discussed, patient has significant amount of bleeding through the mouth with clumps and clots bright red in addition has been bleeding from the NG tube and ET tube as well, heparin has been stopped, next dose of Lovenox will hold it, repeat CBC is pending hemodynamics are stable, patient is scheduled to get a PICC line, currently patient is on assist control rate of 34 PEEP of 12 tidal volume of 550, 70% oxygen, saturation are 90-92%, the still have significant air leak from the right-sided apical chest tube at the bottom left-sided no significant air leak has been present, patient is getting IV cephapirin for the MSSA in the sputum, IV Diflucan and Flagyl has been admitted for suspicion of bowel perforation however the free air in the abdomen is due to thoracic air mediastinal and pleural escaped into the abdominal cavity, patient has been tolerating tube feed well, he remains medically paralyzed with propofol and Nimbex, white cell count is 18,000 yesterday CBC 10.7 today's labs are not done, PTT was 157, arterial blood gas reviewed pH is 7.2 with pCO2 53 oxygen is 70, patient continued to get hemodialysis per nephrology, 09/02/2020, patient seen eval examined during the rounds labs reviewed medications reviewed, remains sedated on propofol as well as Nimbex, full ventilator support, patient is a 80% oxygen sats are 90%, rate is 34 PEEP is 12, the CAT scan of the lungs consistent with ARDS, patient is getting hemodialysis currently, duplex ultrasound was back positive for bilateral DVT Lovenox increased to 60 mg twice a day, patient continued to have intermittent leak from the right-sided upper chest tube no significant leak is present on bottom 1, no leak has been seen from the left side 1, and cell count remains elevated with st able hemoglobin arterial blood gas shows respiratory acidosis with CO2 55, BUN/creatinine is 107/4.8, prognosis is guarded with likelihood of recovery is poor continue supportive care 09/01/2020, patient seen eval examined care plan discussed with the staff at length, patient remains on 100% oxygen assist control rate of 34 tidal volume of the 500 PEEP of 12, patient had second cycle hemodialysis today 500 mL was removed yesterday 1.5 L was removed, patient was found to have free air in the abdomen by a chest CT, no hollow viscus perforation have been noted, here appears to be thoracic air escaping into the abdominal cavity, patient has minimal pneumothorax on the right side with a stable chest tube in the pleural space draining air right upper chest tube continued to drain area continuously however lower chest tube intermittently, patient has extensive pneumomediastinum by CAT scan, left-sided pneumothorax significantly improved minimal or no air leak has been present on the left chest tube, white cell count is up to 22,000, ABG slightly improved and better pH is 7.21, potassium is 5.5, BUN/creatinine was up to 133 and 6.5 postdialysis labs are pending, patient is resumed back on tube feed post second dialysis sats have improved to 96% will titrate oxygen down as tolerated to keep saturation over 92%, critical care time spent 40 minutes 08/31/2020, patient seen eval examined during the rounds labs reviewed medications reviewed care plan discussed with the staff at length, remains medically paralyzed with propofol and Nimbex drip, chest tubes is still significantly leaking on the right side lungs are well expanded though, minimum leak is present at the base, cardiothoracic surgery is have recommended to follow it up closely, no active intervention has been recommended, renal function continued to get worse, patient has been getting diuresis with loop diuretics, would recommend to discontinue it patient remains on bicarb drip, along with anticoagulation, when setting remains stable assist control rate of 24 deep of 12 tidal volume 500 with 100% oxygen, saturation is just a 88-90%, continue broad-spectrum antibiotics and supportive care long-term prognosis poor will defer decision about dialysis to the family and renal services 08/30/2020, patient seen eval examined during the rounds medically sedated and paralyzed of propofol and Nimbex, on full ventilator support with assist control rate of 24 EP is 1200% oxygen which has been reduced to 90% now, saturation 91- 92%, bilateral chest tubes are present minimal air leak on the left side, right- sided apical tube still having persistent nearly however distal intermittently, tolerating tube feed well, labs reviewed arterial blood gas reviewed as well along with radiographic findings patient BUN/creatinine continue to go up consistent with acute tubular necrosis likely related to covid 19 sepsis, arterial blood gases revealed pH is 7.18 pCO2 54 pO2 90, patient improved to 5.4, BUN/creatinine up to 132 and 5.86 08/29/2020, patient seen eval examined during the rounds labs reviewed medications reviewed care plan discussed with the staff including RN and respiratory therapy at length, saturation remains borderline however they were 90% in the morning came down to 84% increasing PEEP causes rapid increase in peak air pressure and platue pressure up to 55 and 35, PEEP lowered to 12, patient remains on 100% oxygen with full assist control mode, arterial blood gases reviewed and significant metabolic acidosis appears to be related to acute renal failure, renal services have been consulted, patient appears to have nonoliguric acute renal failure likely acute tubular necrosis, patient remains gently hydrated to feed and given, remains afebrile, white cell count remains on higher side hemoglobin stable, arterial blood gases noted to be to be pH of 7.18 pCO2 53 pO2 70, 1 amp of bicarb along with bicarb drip have been initiated, potassium running on the higher side of 5.8, inflammatory parameters slightly down of thousand today LDH and C-reactive protein remains elevated, sputum for positive for a MSSA, vancomycin has been discontinued which may be contributing to acute kidney injury, patient remains on the propofol as well as Nimbex drip, patient has 2 chest tubes on the right side and one chest tube on the left side due to pneumomediastinum and bilateral pneumothorax they've been aching is minimal on left and right bottom chest tube significant on apical chest tube however 08/28/2020, patient seen eval examined during the rounds labs reviewed medications reviewed, currently patient is on ventilator support PEEP of 10, 90% oxygen, assist control rate of 30, care blood gases reviewed, chest x-ray reviewed, minimal bilateral apical pneumothorax is present, stable left-sided chest U no air leak is present, right-sided apical tube continued to bubble significant air leak, bottom minimal, patient is medically paralyzed with propofol and Nimbex, laboratory data reviewed discussed at length with the staff 08/27/2020, patient seen eval examined during the rounds sedated and medically paralyzed, right-sided chest tube is still significantly and leak upper tube is present no significantly is seen in the 1 and also left side, labs and arterial blood gases reviewed and ventilator adjusted, chest U was stable on chest x-ray, apical very small pneumothorax, 08/26/2020, patient seen eval examined during the rounds labs reviewed medications reviewed, chest tube continue to gently air, patient intubated, on full ventilator support noted evidence of hypercapnia with increase the ventilation C orders, chest x-ray reviewed trace pneumothorax on the apex cannot be excluded, basal bilateral dense infiltrate with mediastinal emphysema, no significant pneumothorax seen, labs reviewed, critical care time 35 minutes 08/25/2020, patient seen eval examined during the rounds labs reviewed medications reviewed care plan discussed with the staff, patient had a respiratory arrest earlier this morning during which he pulled out his BiPAP machine oxygen saturation dropped down into 20s, he also tried to pull out his chest tube, during that process he was intubated, postintubation chest x-ray shows minimal pneumothorax on the right side left-sided pneumothorax or anterior posterior cannot be excluded, extensive pneumomediastinum is present, patient currently and placed on the propofol at 75 mics was very restless and agitated, tachypneic tachycardic and eventually medically paralyzed with Nimbex drip, respiratory status slightly more stable patient is more calm and now hemodynamics stable, has been getting IV fluids, will need a chest tube on the the left side to avoid tension pneumothorax, keep the 2 chest tube on the right side 1 direct towards the apex appears to be stable however one at the base of the lung is still in, dense bilateral infiltrate are present, white cell count is up to 34,000, arterial blood gas and chest x-ray reviewed consistent with respiratory and metabolic acidosis, with severe hypoxia requiring PEEP with high ventilatory rate 08/24/2020, patient seen eval examined during the rounds labs reviewed medications reviewed sitting upright on the bed, remains on BiPAP with 100% oxygen, saturation 95%, patient desaturated into goes on the right side down and intermittently during supine posture, however do better with left side up, and sitting up as well, chest x-ray from today reviewed pneumothorax recurred on the right side in spite of 2 chest tube aiming towards the apex and the base with significant air leak, small left apical pneumothorax however is stable, patient is awaiting evaluation from thoracic surgery for possible VATS or transfer to tertiary care center, left side and INR will put a small bore pigtail catheter at the apex later on this morning, patient remains afebrile slightly tachycardic tachypneic, inflammatory parameters still up, prognosis is guarded care plan discussed directly and indirectly with primary service, staff, cardiothoracic and IR 08/23/2020, patient seen eval reexamined during the rounds labs reviewed medications reviewed, oxygen saturation remained stable, however patient cou ldn't tolerate off of BiPAP, he remains on BiPAP. All, chest x-ray reviewed, patient hasn't to right-sided chest tube air leak is present from both, left- sided residual small pneumothorax present along with subcutaneous emphysema and mediastinal emphysema, interventional radiology could not do a chest tube on the left side, they are planning to do it tomorrow, white cell count decreased to 19,000, d-dimer is still elevated inflammatory parameters elevated consistent with cytokine nita 08/22/2020, patient seen eval reexamined significant desaturation was more noted, sats dropped down to 55-70% spontaneously comes right back up though currently on 93% BiPAP, Semiprone with the right side up patient cannot tolerate airvo, desaturated easily remains tachypneic tachycardic hemodynamic status however remains stable, chest x-ray findings reviewed in spite of right-sided chest tube and persistent air leak there is a persistent spontaneous pneumothorax fairly large on the right side and small apical left sided spontaneous pneumothorax noted with pneumomediastinum and bilateral dense infilt rate at the bases, thoracic surgery has been consulted, patient may need an another chest tube on the right side versus VATS and preferably and of the small chest U was on the left side, will defer to expertise of thoracic surgery, labs reviewed medications reviewed care plan discussed at length with the staff 08/21/2020, patient seen eval examined during the rounds sitting upright in chair breathing slightly better oxygen saturation is 87-88%, patient is on high flow oxygen along with the nonrebreather mass, tachypneic tachycardic blood pressure is slightly high, patient has a right-sided chest tube is still leaking air, chest x-ray reviewed bilateral infiltrate is present with residual pn eumothorax and subcu emphysema, labs from today reviewed white cell count remains elevated 20,000, renal functions stable, will attempt semi-prone with right side up, we will obtain an transfuse convalescent plasma 08/20/2020, patient seen eval examined during the rounds a labs reviewed medications reviewed this morning patient had problems with agitated anxiety and a prehension, oxygen saturation dropped down into 70s, rapid response was called and stat chest x-ray revealed presence of pneumothorax which is significant on the right side as well they may be a small mediastinal emphysema on the left side as well, patient has been made semi-prone with that oxygen saturation 100% nonrebreather mask improved to 92% patient is more calm, he remains afebrile temperature is 98.3 respiratory rate and mid to high 20s, weight is oxygen saturation 94%, chest x-ray finding reviewed 08/19/2020, patient seen eval examined during the rounds labs reviewed medications reviewed care plan discussed, patient is sitting upright on the bed on 100% nonrebreather mask, saturation remains marginal about 88%, remains afebrile, slightly anxious, advised based he hasn't to be on prone position as much as possible, labs reviewed white cell count is 17,000, patient remains on Remdesivir, Decadron, Lovenox August 18 2020, patient seen eval examined during the rounds is still on 5 L high flow oxygen, denies any chest pain breathing difficulties present, denies any cough or sputum production labs chest x-ray reviewed This is a 59-year-old male who has history of diabetes hypertension hypertensive cardiovascular disease and not feeling well for the last 5-6 days with cough and increased shortness of breath started with a sore throat, patient admitted into the hospital was spiking fever up to 101, oxygen saturation 90%, patient already has been started on REM doesn't wear and Decadron, his initial admit x-ray cystoscopy right midlung field and left lower lid feeding infiltrate patient gradually got worse initially has been on room air oxygen requirement keep on going up to 3 L and subsequently on 5 L high flow oxygen with that oxygen saturation is 93%, critical care time spent 35 minutes Objective - Vital Signs Vital signs: Vital Signs Temp 98.3 F 09/04/20 15:25 Pulse 101 H 09/04/20 15:25 Resp 35 H 09/04/20 15:25 BP 108/62 09/04/20 15:25 Pulse Ox 91 L 09/04/20 11:45 Intake & Output 09/03/20 09/04/20 09/04/20 18:59 06:59 18:59 Intake Total 5123.184 3357.178 1140.355 Output Total 2075 25 2500 Balance -331.079 4848.178 -1359.645 Weight 120.7 kg 122.3 kg 122.3 kg Intake: IV 255 370 160 Cefepime 1 gm In Sodium 50 50 50 Chloride 0.9% 50 ml @ 12. 5 mls/hr IVPB Q12HR [facility] Rx#:[id number] Fluconazole in NaCl,Iso- 50 100 Osm 100 mg In Saline 1 50ml.bag @ 50 mls/hr IVPB DAILY [facility] Rx#:[id number] sodium chloride @ 10ml hr 155 220 110 Intake, IV Titration 645.527 339.178 562.355 Amount Heparin Sod,Pork in 0.45% 43.863 NaCl 25,000 unit In 0.45 % NaCl 1 250ml.bag @ 18 UNITS/KG/HR 21.78 mls/hr IV .[id number] [facility] Rx#: [id number] Insulin Regular 100 unit 101.000 139.178 62.822 In Sodium Chloride 0.9% 100 ml @ Per Protocol IV .Q0M [facility] Rx#:[id number] Norepinephrine 4 mg In 198.196 Sodium Chloride 0.9% 250 ml @ 0.1 MCG/KG/MIN 38. 862 mls/hr IV .[id number] [facility] Rx#:[id number] metroNIDAZOLE-NS PMX 500 200 100 mg In Saline 1 100ml.bag @ 100 mls/hr IVPB Q8HR [facility] Rx#:[id number] propofoL 1,000 mg In 300.664 200 201.337 Empty Bag 1 bag @ Titrate IV .Q0M [facility] Rx#: [id number] Tube Feeding 386 340 238 Other 120 150 180 Output: Chest Tube Drainage 50 0 0 Chest Tube Right 0 0 0 Chest Tube Right Upper 50 0 0 Left Upper Anterior Chest 0 0 Urine 25 25 0 Hemodialysis 2000 2500 Other: Voiding Method Indwelling Catheter Indwelling Catheter ABP, PAP, CO, CI - Last Documented Arterial Blood Pressure 132/56 - Exam - Constitutional General appearance: Intubated medically paralyzed on full ventilator support - EENT Eyes: EOMI, PERRLA Ears: bilateral: normal - Neck Neck: normal ROM Carotids: bilateral: upstroke normal Thyroid: bilateral: normal size - Respiratory Respiratory: bilateral: diminished - Cardiovascular Rhythm: regular Heart sounds: normal: S1, S2 - Gastrointestinal General gastrointestinal: normal bowel sounds - Neurologic Neurologic: CNII-XII intact - Musculoskeletal Musculoskeletal: gait normal, generalized weakness, strength equal bilaterally - Psychiatric Psychiatric: Appears, now post medical paralysis - Labs CBC & Chem 7: 09/04/20 04:39 09/04/20 04:39 Labs: Abnormal Lab Results - Last 24 Hours (Table) 09/03/20 09/03/20 09/03/20 Range/Units 16:13 17:38 19:08 WBC (3.8-10.6) k/uL RBC (4.30-5.90) m/uL Hgb (13.0-17.5) gm/dL Hct (39.0-53.0) % Neutrophils # (1.3-7.7) k/uL Lymphocytes # (1.0-4.8) k/uL D-Dimer (<0.60) mg/L FEU ABG pH (7.35-7.45) ABG pCO2 (35-45) mmHg ABG pO2 (83-108) mmHg ABG Total CO2 (19-24) mmol/L ABG O2 Saturation (94-97) % Sodium (137-145) mmol/L BUN (9-20) mg/dL Creatinine (0.66-1.25) mg/dL Glucose (74-99) mg/dL POC Glucose (mg/dL) 197 H 174 H 155 H (75-99) mg/dL Calcium (8.4-10.2) mg/dL Phosphorus (2.5-4.5) mg/dL Ferritin (22.0-322.0) ng/mL Alkaline Phosphatase (38-126) U/L Lactate Dehydrogenase (313-618) U/L Creatine Kinase (55-170) U/L C-Reactive Protein (<10.0) mg/L Total Protein (6.3-8.2) g/dL Albumin (3.5-5.0) g/dL 09/03/20 09/03/20 09/04/20 Range/Units 21:06 23:51 02:05 WBC (3.8-10.6) k/uL RBC (4.30-5.90) m/uL Hgb (13.0-17.5) gm/dL Hct (39.0-53.0) % Neutrophils # (1.3-7.7) k/uL Lymphocytes # (1.0-4.8) k/uL D-Dimer (<0.60) mg/L FEU ABG pH (7.35-7.45) ABG pCO2 (35-45) mmHg ABG pO2 (83-108) mmHg ABG Total CO2 (19-24) mmol/L ABG O2 Saturation (94-97) % Sodium (137-145) mmol/L BUN (9-20) mg/dL Creatinine (0.66-1.25) mg/dL Glucose (74-99) mg/dL POC Glucose (mg/dL) 176 H 117 H 125 H (75-99) mg/dL Calcium (8.4-10.2) mg/dL Phosphorus (2.5-4.5) mg/dL Ferritin (22.0-322.0) ng/mL Alkaline Phosphatase (38-126) U/L Lactate Dehydrogenase (313-618) U/L Creatine Kinase (55-170) U/L C-Reactive Protein (<10.0) mg/L Total Protein (6.3-8.2) g/dL Albumin (3.5-5.0) g/dL 09/04/20 09/04/20 09/04/20 Range/Units 04:29 04:39 04:39 WBC 17.6 H (3.8-10.6) k/uL RBC 3.54 L (4.30-5.90) m/uL Hgb 9.9 L (13.0-17.5) gm/dL Hct 31.1 L (39.0-53.0) % Neutrophils # 16.3 H (1.3-7.7) k/uL Lymphocytes # 0.3 L (1.0-4.8) k/uL D-Dimer (<0.60) mg/L FEU ABG pH (7.35-7.45) ABG pCO2 (35-45) mmHg ABG pO2 (83-108) mmHg ABG Total CO2 (19-24) mmol/L ABG O2 Saturation (94-97) % Sodium 135 L (137-145) mmol/L BUN 90 H (9-20) mg/dL Creatinine 5.37 H (0.66-1.25) mg/dL Glucose 155 H (74-99) mg/dL POC Glucose (mg/dL) 164 H (75-99) mg/dL Calcium 7.1 L (8.4-10.2) mg/dL Phosphorus 9.8 H* (2.5-4.5) mg/dL Ferritin 1264.8 H (22.0-322.0) ng/mL Alkaline Phosphatase 174 H (38-126) U/L Lactate Dehydrogenase 1236 H (313-618) U/L Creatine Kinase 432 H (55-170) U/L C-Reactive Protein 63.5 H (<10.0) mg/L Total Protein 4.9 L (6.3-8.2) g/dL Albumin 2.2 L (3.5-5.0) g/dL 09/04/20 09/04/20 09/04/20 Range/Units 04:39 05:36 06:10 WBC (3.8-10.6) k/uL RBC (4.30-5.90) m/uL Hgb (13.0-17.5) gm/dL Hct (39.0-53.0) % Neutrophils # (1.3-7.7) k/uL Lymphocytes # (1.0-4.8) k/uL D-Dimer 2.90 H (<0.60) mg/L FEU ABG pH 7.26 L (7.35-7.45) ABG pCO2 48 H (35-45) mmHg ABG pO2 81 L (83-108) mmHg ABG Total CO2 (19-24) mmol/L ABG O2 Saturation (94-97) % Sodium (137-145) mmol/L BUN (9-20) mg/dL Creatinine (0.66-1.25) mg/dL Glucose (74-99) mg/dL POC Glucose (mg/dL) 182 H (75-99) mg/dL Calcium (8.4-10.2) mg/dL Phosphorus (2.5-4.5) mg/dL Ferritin (22.0-322.0) ng/mL Alkaline Phosphatase (38-126) U/L Lactate Dehydrogenase (313-618) U/L Creatine Kinase (55-170) U/L C-Reactive Protein (<10.0) mg/L Total Protein (6.3-8.2) g/dL Albumin (3.5-5.0) g/dL 09/04/20 09/04/20 09/04/20 Range/Units 07:59 10:28 10:30 WBC (3.8-10.6) k/uL RBC (4.30-5.90) m/uL Hgb (13.0-17.5) gm/dL Hct (39.0-53.0) % Neutrophils # (1.3-7.7) k/uL Lymphocytes # (1.0-4.8) k/uL D-Dimer (<0.60) mg/L FEU ABG pH (7.35-7.45) ABG pCO2 (35-45) mmHg ABG pO2 (83-108) mmHg ABG Total CO2 (19-24) mmol/L ABG O2 Saturation (94-97) % Sodium (137-145) mmol/L BUN (9-20) mg/dL Creatinine (0.66-1.25) mg/dL Glucose (74-99) mg/dL POC Glucose (mg/dL) 151 H 64 L 125 H (75-99) mg/dL Calcium (8.4-10.2) mg/dL Phosphorus (2.5-4.5) mg/dL Ferritin (22.0-322.0) ng/mL Alkaline Phosphatase (38-126) U/L Lactate Dehydrogenase (313-618) U/L Creatine Kinase (55-170) U/L C-Reactive Protein (<10.0) mg/L Total Protein (6.3-8.2) g/dL Albumin (3.5-5.0) g/dL 09/04/20 09/04/20 Range/Units 12:44 14:25 WBC (3.8-10.6) k/uL RBC (4.30-5.90) m/uL Hgb (13.0-17.5) gm/dL Hct (39.0-53.0) % Neutrophils # (1.3-7.7) k/uL Lymphocytes # (1.0-4.8) k/uL D-Dimer (<0.60) mg/L FEU ABG pH 7.21 L (7.35-7.45) ABG pCO2 58 H (35-45) mmHg ABG pO2 69 L (83-108) mmHg ABG Total CO2 25 H (19-24) mmol/L ABG O2 Saturation 89.0 L (94-97) % Sodium (137-145) mmol/L BUN (9-20) mg/dL Creatinine (0.66-1.25) mg/dL Glucose (74-99) mg/dL POC Glucose (mg/dL) 156 H (75-99) mg/dL Calcium (8.4-10.2) mg/dL Phosphorus (2.5-4.5) mg/dL Ferritin (22.0-322.0) ng/mL Alkaline Phosphatase (38-126) U/L Lactate Dehydrogenase (313-618) U/L Creatine Kinase (55-170) U/L C-Reactive Protein (<10.0) mg/L Total Protein (6.3-8.2) g/dL Albumin (3.5-5.0) g/dL Microbiology - Last 24 Hours (Table) 08/31/20 17:21 Blood Culture - Preliminary Blood No Growth after 72 hours Assessment and Plan Assessment: Massive oral cavity bleed as well as some from ET tube and NG tube heparin has been discontinued Acute hypoxic and hypercapnic respiratory failure Status post respiratory arrest patient intubated on full ventilator support lung protective strategy MSSA pneumonia Bilateral DVT Acute kidney injury likely related to acute tubular necrosis as well as vancomycin associated renal damage on daily dialysis Right spontaneous pneumothorax in spite of right-sided double chest tube persistent air leak cardiothoracic surgery have no new recommendations and they signed off Anterior posterior pneumothorax on the left side status post left-sided chest tube was stable no air leak is present Extensive Pneumomediastinum Free air in the abdomen due to mediastinal emphysema and pneumothorax Acute hypoxic respiratory failure Covid 19 pneumonia Type 2 diabetes mellitus Hypertension hypertensive cardiovascular disease Dehydration hypovolemia and hyponatremia Depression Overall prognosis is very poor Plan: Ventilator support adjustment as needed Heparin has been stopped Awaiting CBC blood to be transfused if hemodynamic instability or hemoglobin drop down less than 7 or 8 Lovenox 60 mg every 12 hourly once bleeding has a stopped Chest tube assessment and plan for bilateral pneumothoraces and pneumomediastinum as above, continue suction 40 cm water on the right side 20 cm water and left side dialysis is in progress Hemodialysis as per renal services Monitor renal output closely Continue antihypertensive agent from home Continue to follow sugars closely Observe off of vancomycin, continue cefepime adjusted for renal failure Ventilator adjustment as needed and adjustment of PEEP as noted above Status post Convalescent plasma Continue Decadron and status post IV Remdesivir for 5 days respectively Further plan of care as per clinical response of the patient, overall prognosis is guarded Time with Patient: Greater than 30
--- NOTE | 2020-09-04 16:10 | P.PN ---
Subjective Progress Note Date: 09/04/20 This is a 59-year-old male who was admitted for Covid 19 pneumonitis with sepsis that was present on admission and is being closely monitored. Patient continues in the ICU as he is currently on mechanical vent intubated and sedated. Patient continues to have bilateral chest tubes with 2 in the right and one on the left. Continued air leak present on the right. Patient had a confirmed pneumoperitoneum on computed tomography scan. Multiple medical consultations following closely as prognosis is extremely guarded. Patient was on IV heparin for bilateral lower extremity DVTs. noted bleeding from the orogastric tubes and heparin was discontinued. Patient has limited IV access and currently awaiting for PICC line placement. Patient continues to have loose stools and fecal management system was placed. Patient has upper and lower bilateral extremity swelling and edema noted. Patient is maintained on Lasix. Nephrology also following as patient currently remains on hemodialysis and has been receiving daily treatments. Morning labs are pending at this time and patient will likely receive hemodialysis today. Patient is maintained on IV antibiotics in the form of cefepime and Flagyl and will continue at this time. Diflucan has been discontinued. Infectious disease is following. 09/04/2020 Patient is seen and evaluated and currently remains in the ICU and is being closely monitored. Chest x-ray today reveals continued low lung volumes with persistent bilateral diffuse edema and/or infiltrates with suspect are in a new small lateral right basilar pneumothorax with bilateral chest tubes noted. Continued air leak is noted. Heparin has been discontinued and Lovenox is currently on hold as there was some blood noted in the ET and OG tubes. Hemoglobin is currently stable at 9.9. Continue to monitor vital signs and labs closely and transfuse if hemoglobin is 7. Patient remains on daily hemodialysis and nephrology following closely. Patient's blood pressures were low in the 70s systolic this morning and patient has been started on levophed. Prognosis is guarded. Review of systems: Unable to obtain as patient remains intubated and sedated Active Medications Acetaminophen (Acetaminophen Tab 500 Mg Tab) 1,000 mg PO Q6HR PRN PRN Reason: Fever and/ or Pain Last Admin: 08/21/20 10:19 Dose: 1,000 mg Documented by: Ascorbic Acid (Ascorbic Acid 500 Mg Tab) 1,000 mg PO DAILY [facility] Last Admin: 09/04/20 08:54 Dose: 1,000 mg Documented by: Aspirin (Aspirin 81 Mg) 81 mg PO HS [facility] Last Admin: 09/03/20 20:29 Dose: 81 mg Documented by: Calcium Acetate (Calcium Acetate 667 Mg Tab) 667 mg PO TID-W/MEALS [facility] Last Admin: 09/04/20 12:54 Dose: 667 mg Documented by: Chlorhexidine Gluconate (Chlorhexidine Gluconate 15 Ml Cup) 15 ml MUCOUS MEM BID [facility] Last Admin: 09/04/20 08:54 Dose: 15 ml Documented by: Dexamethasone Sodium Phosphate (Dexamethasone Sod Phosphate 10 Mg/Ml 1 Ml Vial) 6 mg IV DAILY [facility] Last Admin: 09/04/20 08:55 Dose: 6 mg Documented by: Enoxaparin Sodium (Enoxaparin 120 Mg/0.8 Ml Syringe) 120 mg SQ DAILY [facility] Famotidine (Famotidine 20 Mg/2 Ml Vial) 20 mg IV DAILY [facility] Last Admin: 09/04/20 08:54 Dose: 20 mg Documented by: Hydromorphone HCl (Hydromorphone 1 Mg/Ml 1 Ml Syringe) 1 mg IVP Q2HR PRN PRN Reason: Pain Last Admin: 08/26/20 04:12 Dose: 1 mg Documented by: Propofol 1,000 mg/ IV Solution 100 mls @ 0 mls/hr IV .Q0M [facility]; Protocol Last Admin: 09/04/20 15:43 Dose: 55 mcg/kg/min, 40.359 mls/hr Documented by: Cisatracurium Besylate 200 mg/ (Sodium Chloride) 200 mls @ 5.994 mls/hr IV .Q24H [facility]; Protocol Last Titration: 09/02/20 12:37 Dose: 0 mcg/kg/min, 0 mls/hr Documented by: Insulin Human Regular 100 unit (/ Sodium Chloride) 101 mls @ 0 mls/hr IV .Q0M [facility]; Protocol Last Admin: 09/04/20 15:42 Dose: 16 units/hr, 16.16 mls/hr Documented by: Cefepime HCl 1 gm/ Sodium (Chloride) 50 mls @ 12.5 mls/hr IVPB Q12HR [facility] Last Admin: 09/04/20 08:56 Dose: 12.5 mls/hr Documented by: Metronidazole 500 mg/ IV (Solution) 100 mls @ 100 mls/hr IVPB Q8HR [facility] Last Admin: 09/04/20 08:56 Dose: 100 mls/hr Documented by: Norepinephrine Bitartrate 4 mg (/ Sodium Chloride) 254 mls @ 38.862 mls/hr IV .Q6H33M [facility]; Protocol Last Titration: 09/04/20 14:20 Dose: 0.1 mcg/kg/min, 38.862 mls/hr Documented by: Lorazepam (Lorazepam 2 Mg/Ml Inj) 0.5 mg IV Q4HR PRN PRN Reason: Anxiety Last Admin: 08/25/20 08:13 Dose: 0.5 mg Documented by: Miscellaneous Information (Pneumonia [facility] 1 each PO ONCE PRN PRN Reason: Per Protocol Sodium Bicarbonate (Sodium Bicarbonate Tab 650 Mg Tab) 650 mg PO TID [facility] Last Admin: 09/04/20 15:42 Dose: 650 mg Documented by: Sodium Chloride (Sodium Chloride 0.9% Flush 10 Ml Syringe) 10 ml IV Q4HR PRN PRN Reason: PICC Line Sodium Chloride (Sodium Chloride 0.9% Flush 10 Ml Syringe) 10 ml IV WEEKLY [facility] Sodium Chloride (Sodium Chloride 0.9% Flush 10 Ml Syringe) 20 ml IV Q4HR PRN PRN Reason: PICC Line Zinc Sulfate (Zinc Sulfate 220 Mg Cap) 220 mg PO DAILY [facility] Last Admin: 09/04/20 08:54 Dose: 220 mg Documented by: Objective - Vital Signs Vital signs: Vital Signs Temp 98.3 F 09/03/20 16:00 Pulse 99 09/04/20 06:00 Resp 27 H 09/04/20 06:00 BP 113/51 09/04/20 06:00 Pulse Ox 95 09/04/20 06:00 Intake & Output 09/03/20 09/04/20 09/04/20 18:59 06:59 18:59 Intake Total 5505.466 3143.178 35.35 Output Total 2075 25 Balance -579.583 0049.178 35.35 Weight 120.7 kg 122.3 kg Intake: IV 255 370 Cefepime 1 gm In Sodium 50 50 Chloride 0.9% 50 ml @ 12. 5 mls/hr IVPB Q12HR [facility] Rx#:[id number] Fluconazole in NaCl,Iso- 50 100 Osm 100 mg In Saline 1 50ml.bag @ 50 mls/hr IVPB DAILY [facility] Rx#:[id number] sodium chloride @ 10ml hr 155 220 Intake, IV Titration 645.527 339.178 35.35 Amount Heparin Sod,Pork in 0.45% 43.863 NaCl 25,000 unit In 0.45 % NaCl 1 250ml.bag @ 18 UNITS/KG/HR 21.78 mls/hr IV .[id number] [facility] Rx#: [id number] Insulin Regular 100 unit 101.000 139.178 35.35 In Sodium Chloride 0.9% 100 ml @ Per Protocol IV .Q0M [facility] Rx#:[id number] metroNIDAZOLE-NS PMX 500 200 mg In Saline 1 100ml.bag @ 100 mls/hr IVPB Q8HR [facility] Rx#:[id number] propofoL 1,000 mg In 300.664 200 Empty Bag 1 bag @ Titrate IV .Q0M [facility] Rx#: [id number] Tube Feeding 386 340 Other 120 150 Output: Chest Tube Drainage 50 0 Chest Tube Right 0 0 Chest Tube Right Upper 50 0 Left Upper Anterior Chest 0 Urine 25 25 Hemodialysis 2000 Other: Voiding Method Indwelling Catheter Indwelling Catheter - Exam GENERAL: The patient is intubated and sedated. Currently on pressor support. Temp is 98.7F, pulse is 94, respirations are 34, blood pressure is 66/36, oxygen saturation is 90% on mechanical vent with an FiO2 of 70%. HEENT: Pupils are round and equally reacting to light. EOMI. No scleral icterus. No conjunctival pallor. Normocephalic, atraumatic. No pharyngeal erythema. No thyromegaly. ET tube was changed. CARDIOVASCULAR: S1 and S2 muffled. No murmurs, rubs, or gallops. PULMONARY: Bilateral scattered rhonchi and crackles, no wheezing noted diminished air entry bilaterally, tachypneic, 2 chest tubes noted on the right side and one on the left ABDOMEN: Soft, nontender, nondistended, normoactive bowel sounds. No palpable organomegaly. MUSCULOSKELETAL: No joint swelling or deformity. EXTREMITIES: No cyanosis, clubbing, or pedal edema. Bilateral upper and lower extremity edema noted on exam NEUROLOGICAL: Unable to fully assess as patient is intubated and sedated SKIN: No rashes. Note: Because of COVID 19 isolation, some of the history and physical exam findings are indirect and obtained from nursing staff, and other physician examinations to avoid unnecessary contact with the patient. - Labs CBC & Chem 7: 09/04/20 04:39 09/04/20 04:39 Labs: Abnormal Lab Results - Last 24 Hours (Table) 09/03/20 09/03/20 09/03/20 Range/Units 10:43 13:15 14:00 WBC 20.0 H (3.8-10.6) k/uL RBC 3.57 L (4.30-5.90) m/uL Hgb 10.0 L (13.0-17.5) gm/dL Hct 31.2 L (39.0-53.0) % Neutrophils # 18.9 H (1.3-7.7) k/uL Lymphocytes # 0.2 L (1.0-4.8) k/uL APTT (22.0-30.0) sec D-Dimer (<0.60) mg/L FEU ABG pH (7.35-7.45) ABG pCO2 (35-45) mmHg ABG pO2 (83-108) mmHg Sodium (137-145) mmol/L Potassium (3.5-5.1) mmol/L BUN (9-20) mg/dL Creatinine (0.66-1.25) mg/dL Glucose (74-99) mg/dL POC Glucose (mg/dL) 125 H 135 H (75-99) mg/dL Calcium (8.4-10.2) mg/dL Phosphorus (2.5-4.5) mg/dL Magnesium (1.6-2.3) mg/dL Alkaline Phosphatase (38-126) U/L Lactate Dehydrogenase (313-618) U/L Creatine Kinase (55-170) U/L C-Reactive Protein (<10.0) mg/L Total Protein (6.3-8.2) g/dL Albumin (3.5-5.0) g/dL 09/03/20 09/03/20 09/03/20 Range/Units 14:00 14:00 16:13 WBC (3.8-10.6) k/uL RBC (4.30-5.90) m/uL Hgb (13.0-17.5) gm/dL Hct (39.0-53.0) % Neutrophils # (1.3-7.7) k/uL Lymphocytes # (1.0-4.8) k/uL APTT 30.1 H (22.0-30.0) sec D-Dimer (<0.60) mg/L FEU ABG pH (7.35-7.45) ABG pCO2 (35-45) mmHg ABG pO2 (83-108) mmHg Sodium 132 L (137-145) mmol/L Potassium 5.5 H (3.5-5.1) mmol/L BUN 106 H* (9-20) mg/dL Creatinine 5.87 H (0.66-1.25) mg/dL Glucose 157 H (74-99) mg/dL POC Glucose (mg/dL) 197 H (75-99) mg/dL Calcium 6.7 L (8.4-10.2) mg/dL Phosphorus 11.4 H* (2.5-4.5) mg/dL Magnesium 2.7 H (1.6-2.3) mg/dL Alkaline Phosphatase 206 H (38-126) U/L Lactate Dehydrogenase (313-618) U/L Creatine Kinase (55-170) U/L C-Reactive Protein (<10.0) mg/L Total Protein 4.8 L (6.3-8.2) g/dL Albumin 2.1 L (3.5-5.0) g/dL 09/03/20 09/03/20 09/03/20 Range/Units 17:38 19:08 21:06 WBC (3.8-10.6) k/uL RBC (4.30-5.90) m/uL Hgb (13.0-17.5) gm/dL Hct (39.0-53.0) % Neutrophils # (1.3-7.7) k/uL Lymphocytes # (1.0-4.8) k/uL APTT (22.0-30.0) sec D-Dimer (<0.60) mg/L FEU ABG pH (7.35-7.45) ABG pCO2 (35-45) mmHg ABG pO2 (83-108) mmHg Sodium (137-145) mmol/L Potassium (3.5-5.1) mmol/L BUN (9-20) mg/dL Creatinine (0.66-1.25) mg/dL Glucose (74-99) mg/dL POC Glucose (mg/dL) 174 H 155 H 176 H (75-99) mg/dL Calcium (8.4-10.2) mg/dL Phosphorus (2.5-4.5) mg/dL Magnesium (1.6-2.3) mg/dL Alkaline Phosphatase (38-126) U/L Lactate Dehydrogenase (313-618) U/L Creatine Kinase (55-170) U/L C-Reactive Protein (<10.0) mg/L Total Protein (6.3-8.2) g/dL Albumin (3.5-5.0) g/dL 09/03/20 09/04/20 09/04/20 Range/Units 23:51 02:05 04:29 WBC (3.8-10.6) k/uL RBC (4.30-5.90) m/uL Hgb (13.0-17.5) gm/dL Hct (39.0-53.0) % Neutrophils # (1.3-7.7) k/uL Lymphocytes # (1.0-4.8) k/uL APTT (22.0-30.0) sec D-Dimer (<0.60) mg/L FEU ABG pH (7.35-7.45) ABG pCO2 (35-45) mmHg ABG pO2 (83-108) mmHg Sodium (137-145) mmol/L Potassium (3.5-5.1) mmol/L BUN (9-20) mg/dL Creatinine (0.66-1.25) mg/dL Glucose (74-99) mg/dL POC Glucose (mg/dL) 117 H 125 H 164 H (75-99) mg/dL Calcium (8.4-10.2) mg/dL Phosphorus (2.5-4.5) mg/dL Magnesium (1.6-2.3) mg/dL Alkaline Phosphatase (38-126) U/L Lactate Dehydrogenase (313-618) U/L Creatine Kinase (55-170) U/L C-Reactive Protein (<10.0) mg/L Total Protein (6.3-8.2) g/dL Albumin (3.5-5.0) g/dL 09/04/20 09/04/20 09/04/20 Range/Units 04:39 04:39 04:39 WBC 17.6 H (3.8-10.6) k/uL RBC 3.54 L (4.30-5.90) m/uL Hgb 9.9 L (13.0-17.5) gm/dL Hct 31.1 L (39.0-53.0) % Neutrophils # 16.3 H (1.3-7.7) k/uL Lymphocytes # 0.3 L (1.0-4.8) k/uL APTT (22.0-30.0) sec D-Dimer 2.90 H (<0.60) mg/L FEU ABG pH (7.35-7.45) ABG pCO2 (35-45) mmHg ABG pO2 (83-108) mmHg Sodium 135 L (137-145) mmol/L Potassium (3.5-5.1) mmol/L BUN 90 H (9-20) mg/dL Creatinine 5.37 H (0.66-1.25) mg/dL Glucose 155 H (74-99) mg/dL POC Glucose (mg/dL) (75-99) mg/dL Calcium 7.1 L (8.4-10.2) mg/dL Phosphorus 9.8 H* (2.5-4.5) mg/dL Magnesium (1.6-2.3) mg/dL Alkaline Phosphatase 174 H (38-126) U/L Lactate Dehydrogenase 1236 H (313-618) U/L Creatine Kinase 432 H (55-170) U/L C-Reactive Protein 63.5 H (<10.0) mg/L Total Protein 4.9 L (6.3-8.2) g/dL Albumin 2.2 L (3.5-5.0) g/dL 09/04/20 09/04/20 09/04/20 Range/Units 05:36 06:10 07:59 WBC (3.8-10.6) k/uL RBC (4.30-5.90) m/uL Hgb (13.0-17.5) gm/dL Hct (39.0-53.0) % Neutrophils # (1.3-7.7) k/uL Lymphocytes # (1.0-4.8) k/uL APTT (22.0-30.0) sec D-Dimer (<0.60) mg/L FEU ABG pH 7.26 L (7.35-7.45) ABG pCO2 48 H (35-45) mmHg ABG pO2 81 L (83-108) mmHg Sodium (137-145) mmol/L Potassium (3.5-5.1) mmol/L BUN (9-20) mg/dL Creatinine (0.66-1.25) mg/dL Glucose (74-99) mg/dL POC Glucose (mg/dL) 182 H 151 H (75-99) mg/dL Calcium (8.4-10.2) mg/dL Phosphorus (2.5-4.5) mg/dL Magnesium (1.6-2.3) mg/dL Alkaline Phosphatase (38-126) U/L Lactate Dehydrogenase (313-618) U/L Creatine Kinase (55-170) U/L C-Reactive Protein (<10.0) mg/L Total Protein (6.3-8.2) g/dL Albumin (3.5-5.0) g/dL Microbiology - Last 24 Hours (Table) 08/31/20 17:21 Blood Culture - Preliminary Blood No Growth after 72 hours 09/01/20 06:24 Gram Stain - Final Sputum Sputum Culture - Final Kristen albicans Pseudomonas aeruginosa Assessment and Plan Assessment: -Covid 19 infection/pneumonia -Acute hypoxic, hypercapnic respiratory failure requiring mechanical ventilation -confirmed pneumoperitoneum as noted on CT -bilateral lower extremity deep vein thromboses -acute renal failure likely acute tubular necrosis, likely from vancomycin toxicity currently requiring hemodialysis -Acute respiratory arrest with hypoxia -Right side pneumothorax , small stable left-sided pneumothorax. -Type 2 diabetes mellitus, remains on insulin drip -mild hypovolemic hyponatremia -Hypertension: -DVT prophylaxis -GI prophylaxis Plan: Continue current medications and continue to monitor closely. Patient currently in the ICU for close monitoring. Patient is currently intubated and sedated. Maintained on IV antibiotics in the form of Cefepime and Flagyl. Pulmonary and infectious disease also following along with nephrology and surgery. Patient currently undergoing daily hemodialysis. CT of the abdomen confirmed pne umoperitoneum. Heparin has been discontinued as patient is having bleeding noted from the oral cavity. Lovenox will be resumed once no bleeding is noted. hemoglobin is stable at 9.9 this morning. Patient has become hypotensive requiring pressor support and currently on Levophed. Awaiting receive a PICC line as he has limited access at this time. Patient continues on insulin drip and will continue at this time. Prognosis is extremely guarded and poor. Will continue to monitor vital signs and labs closely. Further recommendations to follow.
[2020-09-04 16:25] LABS: Glucose,Whole Blood 157 mg/dL (75-99)
[2020-09-04 17:19] LABS: Glucose,Whole Blood 141 mg/dL (75-99)
[2020-09-04 19:47] LABS: Glucose,Whole Blood 102 mg/dL (75-99)
[2020-09-04] MEDS: ASPIRIN 81 MG PO SCH (20:33)
[2020-09-04 22:05] LABS: Glucose,Whole Blood 128 mg/dL (75-99)
--- NOTE | 2020-09-04 22:42 | PN ---
PROGRESS NOTE DATE OF SERVICE: 09/04/2020 REASON FOR FOLLOWUP: Pneumonia. INTERVAL HISTORY: The patient is currently afebrile. The patient is hemodynamically stable, not on any pressor support. FiO2 is currently at 80%. No significant purulent secretion through the ET or any further hemoptysis reported. He still has diarrhea, but no worsening. PHYSICAL EXAMINATION: Blood pressure 146/58 with a pulse of 96, temperature 98.1. He is 99% on 80% FiO2. General description is a middle-aged male lying in bed in no distress. RESPIRATORY SYSTEM: Unlabored breathing with decreased breath sounds at the base. No wheeze. HEART: S1, S2. Regular rate and rhythm. ABDOMEN: Soft. No tenderness. LABS: Hemoglobin is 9.9, white count 17.6, BUN of 90, creatinine 5.37. DIAGNOSTIC IMPRESSION AND PLAN: Patient with acute respiratory failure which is multifactorial in this patient who did have COVID-19 pneumonia with bilateral pneumonia, status post bilateral chest tube placement. Initial sputum with MSSA and repeat showing pseudomonas. The patient is covered with cefepime; to continue and monitor his clinical course closely. White count is showing a downward trend. MMODL / IJN: [id number] /
[2020-09-05 00:11] LABS: Glucose,Whole Blood 152 mg/dL (75-99)
--- NOTE | 2020-09-05 00:42 | P.CONS ---
History of Present Illness - Reason for Consult Consult date: 09/04/20 Bleeding diathesis, DVT - History of Present Illness The patient is a 59-year-old white male, who has had a prolonged admission. He was admitted on 08/12/20, with progressive shortness of breath, fever and pneumonitis due to COVID 19. History has been completed by respiratory failure requiring mechanical ventilation, acute kidney injury requiring dialysis, and diagnosis of bilateral lower extremity DVT on 09/02/20. The patient was initially placed on Lovenox. He was then changed to IV heparin. He developed oral bleeding on the same. PTT was significantly supratherapeutic. Heparin was discontinued and Lovenox was restarted on 09/04/20. Consult was placed for further evaluation and recommendations regard ing anticoagulation The patient is ventilated unable to provide history. History is obtained from discussion with his physicians, nursing,and review of the EMR. From the available history there appears to be no evidence of prior history of any bleeding disorder Review of his labs during admissions show some intermittent drop in platelet counts, and they have always remained above 100,000. It is actually remained normal since the patient was started on anticoagulation. Coags before IV he suleiman, and after stoppage of heparin were normal. Fibrinogen on 08/29/20 was also normal. The patient has also been on baby aspirin. Review of Systems Not obtainable from patient as he is intubated. Obtained from EMR and therefore limited Constitutional: Reports fever, Reports weakness Eyes: denies blurred vision, denies pain Ears: deny: decreased hearing, ear discharge, earache, tinnitus Ears, nose, mouth and throat: Reports as per HPI (Oral cavity bleeding) Cardiovascular: Reports shortness of breath Respiratory: Reports as per HPI, Reports dyspnea Gastrointestinal: Reports diarrhea Genitourinary: Reports as per HPI (Acute kidney injury) Musculoskeletal: Reports as per HPI (Upper and lower extremity edema), Reports muscle weakness Integumentary: Reports as per HPI (No major skin bruising) Neurological: Reports as per HPI (Sedated, intubated. No obvious seizure activity) Endocrine: Reports high blood sugars Hematologic/Lymphatic: Reports easy bleeding Past Medical History Past Medical History: Diabetes Mellitus, Hypertension History of Any Multi-Drug Resistant Organisms: None Reported Past Surgical History: Appendectomy Past Psychological History: No Psychological Hx Reported Smoking Status: Never smoker Past Alcohol Use History: None Reported Past Drug Use History: None Reported Medications and Allergies Home Medications Medication Instructions Recorded Confirmed Type Acetaminophen Tab [Tylenol] 1,000 mg PO Q4-6H PRN 08/14/20 08/14/20 History Aspirin EC [Ecotrin Low Dose] 81 mg PO HS 08/14/20 08/14/20 History Insulin Aspart [NovoLOG] See Protocol SQ TID-W/MEALS 08/14/20 08/14/20 History Lisinopril-Hctz 10-12.5 mg 1 tab PO DAILY 08/14/20 08/14/20 History [Zestoretic 10-12.5] metFORMIN HCL 1,000 mg PO BID-W/MEALS 08/14/20 08/14/20 History Allergies Allergy/AdvReac Type Severity Reaction Status Date / Time No Known Allergies Allergy Verified 08/14/20 18:01 Physical Exam Vitals: Vital Signs Temp Pulse Pulse Resp BP BP Pulse Ox 09/04/20 23:15 95 34 H 96 09/04/20 23:00 97 35 H 97 09/04/20 22:45 98 34 H 97 09/04/20 22:30 96 33 H 97 09/04/20 22:15 97 33 H 98 09/04/20 22:00 96 34 H 98 09/04/20 21:45 96 34 H 99 09/04/20 21:30 95 34 H 98 09/04/20 21:15 96 34 H 99 09/04/20 21:00 96 33 H 99 09/04/20 20:45 98 34 H 99 09/04/20 20:30 97 34 H 99 09/04/20 20:15 97 33 H 98 09/04/20 20:00 98.1 F 98 34 H 98 09/04/20 19:45 100 35 H 98 09/04/20 19:30 99 34 H 98 09/04/20 19:15 98 34 H 98 09/04/20 19:00 98 34 H 98 09/04/20 18:45 92 34 H 98 09/04/20 18:30 93 34 H 98 09/04/20 18:15 92 34 H 98 09/04/20 18:00 92 34 H 97 09/04/20 17:45 90 35 H 97 09/04/20 17:30 90 34 H 97 09/04/20 17:15 90 34 H 96 09/04/20 17:00 91 34 H 98 09/04/20 16:45 93 34 H 99 09/04/20 16:30 93 34 H 97 09/04/20 16:15 96 34 H 98 09/04/20 16:00 99 F 101 H 34 H 96 09/04/20 15:45 96 35 H 97 09/04/20 15:30 102 H 34 H 96 09/04/20 15:25 98.3 F 101 H 35 H 108/62 09/04/20 15:15 101 H 37 H 94 L 09/04/20 15:00 105 H 34 H 91 L 09/04/20 14:45 105 H 37 H 91 L 09/04/20 14:30 104 H 34 H 88 L 09/04/20 14:15 104 H 36 H 86 L 09/04/20 14:00 103 H 34 H 86 L 09/04/20 13:45 102 H 28 H 89 L 09/04/20 13:30 102 H 34 H 86 L 09/04/20 13:15 101 H 34 H 89 L 09/04/20 13:00 102 H 34 H 88 L 09/04/20 12:45 99 33 H 91 L 09/04/20 12:30 98 30 H 92 L 09/04/20 12:15 97 34 H 93 L 09/04/20 12:00 98.7 F 98 35 H 92 L 09/04/20 11:45 93 34 H 91 L 09/04/20 11:30 94 34 H 91 L 09/04/20 11:15 93 28 H 91 L 09/04/20 11:00 95 38 H 90 L 09/04/20 10:45 95 33 H 90 L 09/04/20 10:30 98 26 H 87 L 09/04/20 10:15 101 H 34 H 134/62 89 L 09/04/20 10:00 103 H 34 H 138/61 90 L 09/04/20 09:45 109 H 34 H 119/53 93 L 09/04/20 09:30 98 29 H 108/54 92 L 09/04/20 09:15 99 25 H 106/49 90 L 09/04/20 09:00 100 34 H 99/48 90 L 09/04/20 08:45 94 34 H 66/36 90 L 09/04/20 08:30 96 35 H 73/37 87 L 09/04/20 08:15 98 25 H 90 L 09/04/20 08:00 98.7 F 100 27 H 92 L 09/04/20 07:45 101 H 27 H 92 L 09/04/20 07:30 101 H 27 H 93 L 09/04/20 07:15 101 H 29 H 94 L 09/04/20 07:00 101 H 24 94 L 09/04/20 06:00 99 27 H 113/51 95 09/04/20 05:00 97 34 H 94 L 09/04/20 04:00 98 34 H 133/61 95 09/04/20 03:00 96 35 H 161/65 95 09/04/20 02:00 91 34 H 92/51 94 L 09/04/20 01:00 93 34 H 117/54 94 L 09/04/20 00:19 98 09/04/20 00:00 97 37 H 100/58 95 Intake and Output 09/04/20 09/04/20 09/05/20 14:59 22:59 06:59 Intake Total 3787.722 1731.737 Output Total 0 2520 Balance 1105.682 -1381.263 Intake: IV 192 174 Cefepime 1 gm In Sodium 50 Chloride 0.9% 50 ml @ 12. 5 mls/hr IVPB Q12HR [facility] Rx#:[id number] Normal Saline PRessure 12 24 bag sodium chloride @ 10ml hr 130 150 Intake, IV Titration 461.682 632.737 Amount Insulin Regular 100 unit 62.822 69.270 In Sodium Chloride 0.9% 100 ml @ Per Protocol IV .Q0M [facility] Rx#:[id number] Norepinephrine 4 mg In 198.196 261.449 Sodium Chloride 0.9% 250 ml @ 0.1 MCG/KG/MIN 38. 862 mls/hr IV .Q6H33M [facility] Rx#:[id number] metroNIDAZOLE-NS PMX 500 100 100 mg In Saline 1 100ml.bag @ 100 mls/hr IVPB Q8HR [facility] Rx#:[id number] propofoL 1,000 mg In 100.664 202.018 Empty Bag 1 bag @ Titrate IV .Q0M [facility] Rx#: [id number] Tube Feeding 272 272 Other 180 60 Output: Chest Tube Drainage 0 0 Chest Tube Right 0 0 Chest Tube Right Upper 0 0 Left Upper Anterior Chest 0 0 Urine 0 20 Hemodialysis 2500 Other: Voiding Method Indwelling Catheter Indwelling Catheter Indwelling Catheter Weight 122.3 kg ABP, PAP, CO, CI - Last 8 Hours Arterial Blood Pressure 116/52 Arterial Blood Pressure 127/55 Arterial Blood Pressure 127/56 Arterial Blood Pressure 123/54 Arterial Blood Pressure 125/53 Arterial Blood Pressure 124/52 Arterial Blood Pressure 133/55 Arterial Blood Pressure 131/55 Arterial Blood Pressure 138/56 Arterial Blood Pressure 146/58 Arterial Blood Pressure 147/57 Arterial Blood Pressure 133/55 Arterial Blood Pressure 128/54 Arterial Blood Pressure 128/52 Arterial Blood Pressure 127/54 Arterial Blood Pressure 123/52 Arterial Blood Pressure 128/55 Arterial Blood Pressure 150/61 Arterial Blood Pressure 144/59 Arterial Blood Pressure 135/57 Arterial Blood Pressure 140/57 Arterial Blood Pressure 126/56 Arterial Blood Pressure 120/54 Arterial Blood Pressure 123/54 Arterial Blood Pressure 109/50 Arterial Blood Pressure 128/55 Arterial Blood Pressure 143/61 Arterial Blood Pressure 139/59 Arterial Blood Pressure 137/75 Arterial Blood Pressure 73/43 - Constitutional Sedated, on vent - EENT Eyes: PERRLA ENT: other (Small amount of bright blood in visible oral cavity. Mild tongue swelling) - Neck Neck: no lymphadenopathy Thyroid: bilateral: normal size - Respiratory Respiratory: bilateral: CTA - Cardiovascular Rhythm: regular Heart sounds: normal: S1, S2 - Gastrointestinal Stool collection system, with watery greenish brown stool General gastrointestinal: decreased bowel sounds, soft - Integumentary Integumentary: normal - Neurologic Sedated, on vent - Musculoskeletal Upper and lower extremity edema Musculoskeletal: generalized weakness - Psychiatric Related, on ventilator Results CBC & Chem 7: 09/04/20 04:39 09/04/20 04:39 Labs: Abnormal Lab Results - Last 24 Hours (Table) 09/04/20 09/04/20 09/04/20 Range/Units 02:05 04:29 04:39 WBC 17.6 H (3.8-10.6) k/uL RBC 3.54 L (4.30-5.90) m/uL Hgb 9.9 L (13.0-17.5) gm/dL Hct 31.1 L (39.0-53.0) % Neutrophils # 16.3 H (1.3-7.7) k/uL Lymphocytes # 0.3 L (1.0-4.8) k/uL D-Dimer (<0.60) mg/L FEU ABG pH (7.35-7.45) ABG pCO2 (35-45) mmHg ABG pO2 (83-108) mmHg ABG Total CO2 (19-24) mmol/L ABG O2 Saturation (94-97) % Sodium (137-145) mmol/L BUN (9-20) mg/dL Creatinine (0.66-1.25) mg/dL Glucose (74-99) mg/dL POC Glucose (mg/dL) 125 H 164 H (75-99) mg/dL Calcium (8.4-10.2) mg/dL Phosphorus (2.5-4.5) mg/dL Ferritin (22.0-322.0) ng/mL Alkaline Phosphatase (38-126) U/L Lactate Dehydrogenase (313-618) U/L Creatine Kinase (55-170) U/L C-Reactive Protein (<10.0) mg/L Total Protein (6.3-8.2) g/dL Albumin (3.5-5.0) g/dL 09/04/20 09/04/20 09/04/20 Range/Units 04:39 04:39 05:36 WBC (3.8-10.6) k/uL RBC (4.30-5.90) m/uL Hgb (13.0-17.5) gm/dL Hct (39.0-53.0) % Neutrophils # (1.3-7.7) k/uL Lymphocytes # (1.0-4.8) k/uL D-Dimer 2.90 H (<0.60) mg/L FEU ABG pH 7.26 L (7.35-7.45) ABG pCO2 48 H (35-45) mmHg ABG pO2 81 L (83-108) mmHg ABG Total CO2 (19-24) mmol/L ABG O2 Saturation (94-97) % Sodium 135 L (137-145) mmol/L BUN 90 H (9-20) mg/dL Creatinine 5.37 H (0.66-1.25) mg/dL Glucose 155 H (74-99) mg/dL POC Glucose (mg/dL) (75-99) mg/dL Calcium 7.1 L (8.4-10.2) mg/dL Phosphorus 9.8 H* (2.5-4.5) mg/dL Ferritin 1264.8 H (22.0-322.0) ng/mL Alkaline Phosphatase 174 H (38-126) U/L Lactate Dehydrogenase 1236 H (313-618) U/L Creatine Kinase 432 H (55-170) U/L C-Reactive Protein 63.5 H (<10.0) mg/L Total Protein 4.9 L (6.3-8.2) g/dL Albumin 2.2 L (3.5-5.0) g/dL 09/04/20 09/04/20 09/04/20 Range/Units 06:10 07:59 10:28 WBC (3.8-10.6) k/uL RBC (4.30-5.90) m/uL Hgb (13.0-17.5) gm/dL Hct (39.0-53.0) % Neutrophils # (1.3-7.7) k/uL Lymphocytes # (1.0-4.8) k/uL D-Dimer (<0.60) mg/L FEU ABG pH (7.35-7.45) ABG pCO2 (35-45) mmHg ABG pO2 (83-108) mmHg ABG Total CO2 (19-24) mmol/L ABG O2 Saturation (94-97) % Sodium (137-145) mmol/L BUN (9-20) mg/dL Creatinine (0.66-1.25) mg/dL Glucose (74-99) mg/dL POC Glucose (mg/dL) 182 H 151 H 64 L (75-99) mg/dL Calcium (8.4-10.2) mg/dL Phosphorus (2.5-4.5) mg/dL Ferritin (22.0-322.0) ng/mL Alkaline Phosphatase (38-126) U/L Lactate Dehydrogenase (313-618) U/L Creatine Kinase (55-170) U/L C-Reactive Protein (<10.0) mg/L Total Protein (6.3-8.2) g/dL Albumin (3.5-5.0) g/dL 09/04/20 09/04/2020 Range/Units 10:30 12:44 14:25 WBC (3.8-10.6) k/uL RBC (4.30-5.90) m/uL Hgb (13.0-17.5) gm/dL Hct (39.0-53.0) % Neutrophils # (1.3-7.7) k/uL Lymphocytes # (1.0-4.8) k/uL D-Dimer (<0.60) mg/L FEU ABG pH 7.21 L (7.35-7.45) ABG pCO2 58 H (35-45) mmHg ABG pO2 69 L (83-108) mmHg ABG Total CO2 25 H (19-24) mmol/L ABG O2 Saturation 89.0 L (94-97) % Sodium (137-145) mmol/L BUN (9-20) mg/dL Creatinine (0.66-1.25) mg/dL Glucose (74-99) mg/dL POC Glucose (mg/dL) 125 H 156 H (75-99) mg/dL Calcium (8.4-10.2) mg/dL Phosphorus (2.5-4.5) mg/dL Ferritin (22.0-322.0) ng/mL Alkaline Phosphatase (38-126) U/L Lactate Dehydrogenase (313-618) U/L Creatine Kinase (55-170) U/L C-Reactive Protein (<10.0) mg/L Total Protein (6.3-8.2) g/dL Albumin (3.5-5.0) g/dL 09/04/20 09/04/20 09/04/20 Range/Units 16:23 17:17 19:46 WBC (3.8-10.6) k/uL RBC (4.30-5.90) m/uL Hgb (13.0-17.5) gm/dL Hct (39.0-53.0) % Neutrophils # (1.3-7.7) k/uL Lymphocytes # (1.0-4.8) k/uL D-Dimer (<0.60) mg/L FEU ABG pH (7.35-7.45) ABG pCO2 (35-45) mmHg ABG pO2 (83-108) mmHg ABG Total CO2 (19-24) mmol/L ABG O2 Saturation (94-97) % Sodium (137-145) mmol/L BUN (9-20) mg/dL Creatinine (0.66-1.25) mg/dL Glucose (74-99) mg/dL POC Glucose (mg/dL) 157 H 141 H 102 H (75-99) mg/dL Calcium (8.4-10.2) mg/dL Phosphorus (2.5-4.5) mg/dL Ferritin (22.0-322.0) ng/mL Alkaline Phosphatase (38-126) U/L Lactate Dehydrogenase (313-618) U/L Creatine Kinase (55-170) U/L C-Reactive Protein (<10.0) mg/L Total Protein (6.3-8.2) g/dL Albumin (3.5-5.0) g/dL 09/04/20 Range/Units 22:03 WBC (3.8-10.6) k/uL RBC (4.30-5.90) m/uL Hgb (13.0-17.5) gm/dL Hct (39.0-53.0) % Neutrophils # (1.3-7.7) k/uL Lymphocytes # (1.0-4.8) k/uL D-Dimer (<0.60) mg/L FEU ABG pH (7.35-7.45) ABG pCO2 (35-45) mmHg ABG pO2 (83-108) mmHg ABG Total CO2 (19-24) mmol/L ABG O2 Saturation (94-97) % Sodium (137-145) mmol/L BUN (9-20) mg/dL Creatinine (0.66-1.25) mg/dL Glucose (74-99) mg/dL POC Glucose (mg/dL) 128 H (75-99) mg/dL Calcium (8.4-10.2) mg/dL Phosphorus (2.5-4.5) mg/dL Ferritin (22.0-322.0) ng/mL Alkaline Phosphatase (38-126) U/L Lactate Dehydrogenase (313-618) U/L Creatine Kinase (55-170) U/L C-Reactive Protein (<10.0) mg/L Total Protein (6.3-8.2) g/dL Albumin (3.5-5.0) g/dL Microbiology - Last 24 Hours (Table) 08/31/20 17:21 Blood Culture - Preliminary Blood No Growth after 96 hours Chest x-ray: report reviewed Abdominal x-ray: report reviewed CT scan - abdomen: report reviewed CT scan - chest: report reviewed CT scan - pelvis: report reviewed Venous US: report reviewed Assessment and Plan (1) Bleeding diathesis Narrative/Plan: The patient's bleeding diathesis is acute and new. This is due to antico agulant effect. There is also likely some degree of platelet dysfunction due to acute kidney injury, and aspirin effect. The patient's platelets and coags were otherwise normal. - The patient does need anticoagulation due to his diagnosis of bilateral DVT. The case was discussed in detail with the admitting service, as well as with critical care medicine. Lovenox would not be the ideal candidate for for anticoagulation in this patient because of the acute kidney injury. In these situations the half life of Lovenox can be prolonged, often quite unpredictably. This can lead to significantly higher than desired, and prolonged anticoagulant effect. The half life of unfractionated heparin as well as its anticoagulant effect can also be significantly enhanced, but less so than low molecular weight heparin I therefore recommended that Lovenox be discontinued. The patient would have anti-X A levels checked for persistent Lovenox related anticoagulant effect. Once this is confirmed to be subtherapeutic, I would recommend starting the patient on IV heparin, without bolus, and administer per PTT. This would be safest to administer, (order worse if needed) in this patient with significant renal dysfunction. Once the patient is able to take orally, he can be switched over to one of the NOACs. - I'll also monitor coags and fibrinogen levels - There has been no major drop , which remains in a safe range. Continue to monitor - Continue aspirin with ongoing monitoring Current Visit: Yes Status: Acute Code(s): D69.9 - HEMORRHAGIC CONDITION, UNSPECIFIED SNOMED Code(s): 689464649 (2) Deep vein thrombosis of both lower extremities Narrative/Plan: This would be considered a provoked clot due to COVID, and hospitalization. The patient will ideally need anticoagulation for at least 3 months. It would also be preferable to evaluate for possible PE at baseline, once the patient is improved. If there is suspicion for PE at baseline any will need anticoagulation for at least 6 months Current Visit: Yes Status: Acute Code(s): I82.403 - ACUTE EMBOLISM AND THOMBOS UNSP DEEP VEINS OF LOW EXTRM, BI SNOMED Code(s): 511805164 Plan: Issues prognosis is guarded because of Covid, and related complications. Deferred to the admitting service and other consultants for management of same
[2020-09-05] MEDS: metroNIDAZOLE-NS PMX 500 MG in SALINE 1 100ML.BAG IVPB SCH ×4 (00:46→23:51)
[2020-09-05 02:08] LABS: Glucose,Whole Blood 129 mg/dL (75-99)
[2020-09-05] MEDS: NOREPINEPHRINE 4 MG in SODIUM CHLORIDE 0.9% 250 ML IV SCH (02:56)
[2020-09-05 03:46] LABS: Basophils # (A) 0.3 k/uL (0-0.2); Basophils % (A) 1 %; Eosinophils # (A) 0.2 k/uL (0-0.7); Eosinophils % (A) 1 %; HCT 27.2 % (39.0-53.0); Lymphocytes # (A) 0.5 k/uL (1.0-4.8); Lymphocytes % (A) 2 %; MCH 28.4 pg (25.0-35.0); MCV 86.2 fL (80.0-100.0); Monocytes # (A) 1.2 k/uL (0-1.0); Monocytes % (A) 6 %; Neutrophils # (A) 18.3 k/uL (1.3-7.7); Neutrophils % (A) 88 %; Platelet Count 222 k/uL (150-450); RBC 3.16 m/uL (4.30-5.90); RDW 15.1 % (11.5-15.5); WBC 20.7 k/uL (3.8-10.6)
[2020-09-05 03:55] LABS: Partial Thromboplastin Time 27.3 sec (22.0-30.0); Prothrombin Time 10.2 sec (9.0-12.0)
[2020-09-05 04:09] LABS: C Reactive Protein 46.7 mg/L (<10.0); Calcium 7.1 mg/dL (8.4-10.2); Phosphorus 7.8 mg/dL (2.5-4.5); Potassium 4.3 mmol/L (3.5-5.1); Total Bilirubin 0.3 mg/dL (0.2-1.3); Total Protein 4.6 g/dL (6.3-8.2)
[2020-09-05 04:09] LABS: Glucose,Whole Blood 142 mg/dL (75-99)
[2020-09-05] MEDS: NOREPINEPHRINE 32 MG in SODIUM CHLORIDE 0.9% 218 ML IV SCH (04:20)
[2020-09-05] MEDS: INSULIN REGULAR 100 UNIT in SODIUM CHLORIDE 0.9% 100 ML IV SCH ×2 (04:21→18:40)
[2020-09-05 04:50] LABS: ABG Base Excess -6.6 mmol/L; ABG HCO3 21 mmol/L (21-25); ABG Oxygen Saturation 96.5 % (94-97); ABG PCO2 48 mmHg (35-45); ABG PH 7.25 (7.35-7.45); ABG PO2 120 mmHg (83-108); ABG TCO2 22 mmol/L (19-24)
[2020-09-05 05:43] LABS: Glucose,Whole Blood 124 mg/dL (75-99)
[2020-09-05] MEDS: CALCIUM ACETATE 667 MG TAB PO SCH ×3 (06:38→18:15)
--- NOTE | 2020-09-05 07:38 | XR ---
EXAMINATION TYPE: XR chest 1V portable DATE OF EXAM: 09/05/2020 Comparison: 09/04/2020 Clinical History: 59-year-old male intubated Findings: ET tube satisfactory. NG tube courses below the diaphragm. 2 chest tubes on the right and one chest t ube on the left. No appreciable pneumothorax. Right PICC tip at the mid SVC level. Heart upper limits of normal in size. Diffuse interstitial infiltrates persist. Bilateral subcutaneous emphysema has sl ightly improved. Impression: 1. Bilateral chest tubes. No appreciable pneumothorax. 2. Diffuse interstitial infiltrates persist without significant change. 3. Some improvement in the bilateral subcutaneous emphysema.
[2020-09-05] MEDS ORDERED: HEPARIN SODIUM,PORCINE 5,000 UNIT/ML 1 ML VIAL ONE (08:00)
[2020-09-05 08:21] LABS: Glucose,Whole Blood 165 mg/dL (75-99)
[2020-09-05] MEDS: CHLORHEXIDINE GLUCONATE 15 ML CUP MUCOUS MEM SCH ×2 (08:56→20:01)
[2020-09-05] MEDS: ASCORBIC ACID 500 MG TAB PO SCH (08:56)
[2020-09-05] MEDS: FAMOTIDINE 20 MG/2 ML VIAL IV SCH (08:56)
[2020-09-05] MEDS: SODIUM BICARBONATE TAB 650 MG TAB PO SCH ×2 (08:56→20:01)
[2020-09-05] MEDS: DEXAMETHASONE SOD PHOSPHATE 10 MG/ML 1 ML VIAL IV SCH (08:57)
[2020-09-05] MEDS: ZINC SULFATE 220 MG CAP PO SCH (08:57)
[2020-09-05] MEDS: CEFEPIME 1 GM in SODIUM CHLORIDE 0.9% 50 ML IVPB SCH ×2 (08:58→20:01)
[2020-09-05] MEDS ORDERED: ENOXAPARIN 120 MG/0.8 ML SYRINGE SQ SCH (09:00)
--- NOTE | 2020-09-05 09:23 | P.PN ---
Subjective Progress Note Date: 09/05/20 (Critical care time 35 minutes) Principal diagnosis: Right spontaneous pneumothorax status post 2 chest tubes Pneumomediastinum Left spontaneous pneumothorax Acute hypoxic respiratory failure Covid 19 pneumonia Type 2 diabetes mellitus Hypertension hypertensive cardiovascular disease Dehydration hypovolemia and hyponatremia Depression 09/05/2020, patient seen eval examined during the rounds labs reviewed medications reviewed care plan discussed, bleeding through the endotracheal tube OG tube and oral have significantly improve old blood has been seen patient has been evaluated by hematology recommended to stop anticoagulation factor X A has been sent which will take another 3 or 4 days, for anticoagulation consider heparin restarting up in about 1-2 days, hemodynamics remains marginal patient continued to have intermittent episodes of hypertension, they were noted more during dialysis, current dialysis going on appears to be uneventful, patient remains on 80% oxygen with assist control rate of 34, tidal volume of 5 5012 of PEEP, patient remains on propofol Nimbex and insulin drip, the 3 chest tubes are in chest x-ray reviewed no significant pneumothorax seen minimal subcutaneous emphysema and mediastinal emphysema leaving the left chest tube the right-sided chest tube are leaking air, patient remains on tube feeding, patient remains on IV cephapime for the MSSA pneumonia, new double-lumen PICC line has been inserted, patient also on levo fed to keep systolic blood pressure is stable range, white cell count is 20,000 hemoglobin slowly declining is 9 today, arterial blood gases reviewed pH is 725 with pCO2 48 pO2 120, sodium was 133 potassium is 4.3 BUN/creatinine 75 and 5.11, patient has a mixed respiratory and metabolic acidosis 09/04/2020, patient seen eval examined, labs reviewed medications reviewed care plan discussed with the staff and primary care service as well, patient has a significant drop in volumes on ventilator significant air leak has been noted, ET tube has been changed by anesthesia, volume 7 improved however some bull aturation noted requiring increase in oxygen saturation, patient however hemodynamically marginal is now requiring levo fed drip, right-sided chest tube continued to air leak significantly, sided chest tube was stable, noted however basal hip is still in, 09/03/2020, patient seen eval reexamined during the rounds labs reviewed medications reviewed care plan discussed, patient has significant amount of bleeding through the mouth with clumps and clots bright red in addition has been bleeding from the NG tube and ET tube as well, heparin has been stopped, next dose of Lovenox will hold it, repeat CBC is pending hemodynamics are stable, patient is scheduled to get a PICC line, currently patient is on assist control rate of 34 PEEP of 12 tidal volume of 550, 70% oxygen, saturation are 90-92%, the still have significant air leak from the right-sided apical chest tube at the bottom left-sided no significant air leak has been present, patient is getting IV cephapirin for the MSSA in the sputum, IV Diflucan and Flagyl has been admitted for suspicion of bowel perforation however the free air in the abdomen is due to thoracic air mediastinal and pleural escaped into the abdominal cavity, patient has been tolerating tube feed well, he remains medically paralyzed with propofol and Nimbex, white cell count is 18,000 yesterday CBC 10.7 today's labs are not done, PTT was 157, arterial blood gas reviewed pH is 7.2 with pCO2 53 oxygen is 70, patient continued to get hemodialysis per nephrology, 09/02/2020, patient seen eval examined during the rounds labs reviewed medications reviewed, remains sedated on propofol as well as Nimbex, full ventilator support, patient is a 80% oxygen sats are 90%, rate is 34 PEEP is 12, the CAT scan of the lungs consistent with ARDS, patient is getting hemodialysis currently, duplex ultrasound was back positive for bilateral DVT Lovenox increased to 60 mg twice a day, patient continued to have intermittent leak from the right-sided upper chest tube no significant leak is present on bottom 1, no leak has been seen from the left side 1, and cell count remains elevated with stable hemoglobin arterial blood gas shows respiratory acidosis with CO2 55, B UN/creatinine is 107/4.8, prognosis is guarded with likelihood of recovery is poor continue supportive care 09/01/2020, patient seen eval examined care plan discussed with the staff at length, patient remains on 100% oxygen assist control rate of 34 tidal volume of the 500 PEEP of 12, patient had second cycle hemodialysis today 500 mL was removed yesterday 1.5 L was removed, patient was found to have free air in the abdomen by a chest CT, no hollow viscus perforation have been noted, here appea rs to be thoracic air escaping into the abdominal cavity, patient has minimal pneumothorax on the right side with a stable chest tube in the pleural space draining air right upper chest tube continued to drain area continuously however lower chest tube intermittently, patient has extensive pneumomediastinum by CAT scan, left-sided pneumothorax significantly improved minimal or no air leak has been present on the left chest tube, white cell count is up to 22,000, ABG slightly improved and better pH is 7.21, potassium is 5.5, BUN/creatinine was up to 133 and 6.5 postdialysis labs are pending, patient is resumed back on tube feed post second dialysis sats have improved to 96% will titrate oxygen down as tolerated to keep saturation over 92%, critical care time spent 40 minutes 08/31/2020, patient seen eval examined during the rounds labs reviewed medications reviewed care plan discussed with the staff at length, remains medically paralyzed with propofol and Nimbex drip, chest tubes is still significantly leaking on the right side lungs are well expanded though, minimum leak is present at the base, cardiothoracic surgery is have recommended to follow it up closely, no active intervention has been recommended, renal function continued to get worse, patient has been getting diuresis with loop diuretics, would recommend to discontinue it patient remains on bicarb drip, along with anticoagulation, when setting remains stable assist control rate of 24 deep of 12 tidal volume 500 with 100% oxygen, saturation is just a 88-90%, continue broad-spectrum antibiotics and supportive care long-term prognosis poor will defer decision about dialysis to the family and renal services 08/30/2020, patient seen eval examined during the rounds medically sedated and paralyzed of propofol and Nimbex, on full ventilator support with assist control rate of 24 EP is 1200% oxygen which has been reduced to 90% now, saturation 91- 92%, bilateral chest tubes are present minimal air leak on the left side, right- sided apical tube still having persistent nearly however distal intermittently, tolerating tube feed well, labs reviewed arterial blood gas reviewed as well along with radiographic findings patient BUN/creatinine continue to go up consistent with acute tubular necrosis likely related to covid 19 sepsis, arterial blood gases revealed pH is 7.18 pCO2 54 pO2 90, patient improved to 5.4, BUN/creatinine up to 132 and 5.86 08/29/2020, patient seen eval examined during the rounds labs reviewed medications reviewed care plan discussed with the staff including RN and respiratory therapy at length, saturation remains borderline however they were 90% in the morning came down to 84% increasing PEEP causes rapid increase in peak air pressure and platue pressure up to 55 and 35, PEEP lowered to 12, patient remains on 100% oxygen with full assist control mode, arterial blood gases reviewed and significant metabolic acidosis appears to be related to acute renal failure, renal services have been consulted, patient appears to have nonoliguric acute renal failure likely acute tubular necrosis, patient remains gently hydrated to feed and given, remains afebrile, white cell count remains on higher side hemoglobin stable, arterial blood gases noted to be to be pH of 7.18 pCO2 53 pO2 70, 1 amp of bicarb along with bicarb drip have been initiated, potassium running on the higher side of 5.8, inflammatory parameters slightly down of thousand today LDH and C-reactive protein remains elevated, sputum for positive for a MSSA, vancomycin has been discontinued which may be contributing to acute kidney injury, patient remains on the propofol as well as Nimbex drip, patient has 2 chest tubes on the right side and one chest tube on the left side due to pneumomediastinum and bilateral pneumothorax they've been aching is minimal on left and right bottom chest tube significant on apical chest tube however 08/28/2020, patient seen eval examined during the rounds labs reviewed medications reviewed, currently patient is on ventilator support PEEP of 10, 90% oxygen, assist control rate of 30, care blood gases reviewed, chest x-ray reviewed, minimal bilateral apical pneumothorax is present, stable left-sided chest U no air leak is present, right-sided apical tube continued to bubble sig nificant air leak, bottom minimal, patient is medically paralyzed with propofol and Nimbex, laboratory data reviewed discussed at length with the staff 08/27/2020, patient seen eval examined during the rounds sedated and medically paralyzed, right-sided chest tube is still significantly and leak upper tube is present no significantly is seen in the 1 and also left side, labs and arterial blood gases reviewed and ventilator adjusted, chest U was stable on chest x-ray, apical very small pneumothorax, 08/26/2020, patient seen eval examined during the rounds labs reviewed medications reviewed, chest tube continue to gently air, patient intubated, on full ventilator support noted evidence of hypercapnia with increase the ventilation C orders, chest x-ray reviewed trace pneumothorax on the apex cannot be excluded, basal bilateral dense infiltrate with mediastinal emphysema, no significant pneumothorax seen, labs reviewed, critical care time 35 minutes 08/25/2020, patient seen eval examined during the rounds labs reviewed medications reviewed care plan discussed with the staff, patient had a respiratory arrest earlier this morning during which he pulled out his BiPAP machine oxygen saturation dropped down into 20s, he also tried to pull out his chest tube, during that process he was intubated, postintubation chest x-ray shows minimal pneumothorax on the right side left-sided pneumothorax or anterior posterior cannot be excluded, extensive pneumomediastinum is present, patient currently and placed on the propofol at 75 mics was very restless and agitated, tachypneic tachycardic and eventually medically paralyzed with Nimbex drip, respiratory status slightly more stable patient is more calm and now hemodynamics stable, has been getting IV fluids, will need a chest tube on the the left side to avoid tension pneumothorax, keep the 2 chest tube on the right side 1 direct towards the apex appears to be stable however one at the base of the lung is still in, dense bilateral infiltrate are present, white cell count is up to 34,000, arterial blood gas and chest x-ray reviewed consistent with respiratory and metabolic acidosis, with severe hypoxia requiring PEEP with high ventilatory rate 08/24/2020, patient seen eval examined during the rounds labs reviewed m edications reviewed sitting upright on the bed, remains on BiPAP with 100% oxygen, saturation 95%, patient desaturated into goes on the right side down and intermittently during supine posture, however do better with left side up, and sitting up as well, chest x-ray from today reviewed pneumothorax recurred on the right side in spite of 2 chest tube aiming towards the apex and the base with significant air leak, small left apical pneumothorax however is stable, patient is awaiting evaluation from thoracic surgery for possible VATS or transfer to tertiary care center, left side and INR will put a small bore pigtail catheter at the apex later on this morning, patient remains afebrile slightly tachycardic tachypneic, inflammatory parameters still up, prognosis is guarded care plan discussed directly and indirectly with primary service, staff, cardiothoracic and IR 08/23/2020, patient seen eval reexamined during the rounds labs reviewed medications reviewed, oxygen saturation remained stable, however patient couldn't tolerate off of BiPAP, he remains on BiPAP. All, chest x-ray reviewed, patient hasn't to right-sided chest tube air leak is present from both, left- sided residual small pneumothorax present along with subcutaneous emphysema and mediastinal emphysema, interventional radiology could not do a chest tube on the left side, they are planning to do it tomorrow, white cell count decreased to 19,000, d-dimer is still elevated inflammatory parameters elevated consistent with cytokine nita 08/22/2020, patient seen eval reexamined significant desaturation was more noted, sats dropped down to 55-70% spontaneously comes right back up though currently on 93% BiPAP, Semiprone with the right side up patient cannot tolerate airvo, desaturated easily remains tachypneic tachycardic hemodynamic status however remains stable, chest x-ray findings reviewed in spite of right-sided chest tube and persistent air leak there is a persistent spontaneous pneumothorax fairly large on the right side and small apical left sided spontaneous pneumothorax noted with pneumomediastinum and bilateral dense infiltrate at the bases, thoracic surgery has been consulted, patient may need an another chest tube on the right side versus VATS and preferably and of the small chest U was on the left side, will defer to expertise of thoracic surgery, labs reviewed medications reviewed care plan discussed at length with the staff 08/21/2020, patient seen eval examined during the rounds sitting upright in chair breathing slightly better oxygen saturation is 87-88%, patient is on high flow oxygen along with the nonrebreather mass, tachypneic tachycardic blood pressure is slightly high, patient has a right-sided chest tube is still leaking air, chest x-ray reviewed bilateral infiltrate is present with residual pneumothorax and subcu emphysema, labs from today reviewed white cell count re cathryn elevated 20,000, renal functions stable, will attempt semi-prone with right side up, we will obtain an transfuse convalescent plasma 08/20/2020, patient seen eval examined during the rounds a labs reviewed medications reviewed this morning patient had problems with agitated anxiety and a prehension, oxygen saturation dropped down into 70s, rapid response was called and stat chest x-ray revealed presence of pneumothorax which is significant on the right side as well they may be a small mediastinal emphysema on the left side as well, patient has been made semi-prone with that oxygen saturation 100% nonrebreather mask improved to 92% patient is more calm, he remains afebrile temperature is 98.3 respiratory rate and mid to high 20s, weight is oxygen saturation 94%, chest x-ray finding reviewed 08/19/2020, patient seen eval examined during the rounds labs reviewed medications reviewed care plan discussed, patient is sitting upright on the bed on 100% nonrebreather mask, saturation remains marginal about 88%, remains afebrile, slightly anxious, advised based he hasn't to be on prone position as much as possible, labs reviewed white cell count is 17,000, patient remains on Remdesivir, Decadron, Lovenox August 18 2020, patient seen eval examined during the rounds is still on 5 L high flow oxygen, denies any chest pain breathing difficulties present, denies any cough or sputum production labs chest x-ray reviewed This is a 59-year-old male who has history of diabetes hypertension hypertensive cardiovascular disease and not feeling well for the last 5-6 days with cough and increased shortness of breath started with a sore throat, patient admitted into the hospital was spiking fever up to 101, oxygen saturation 90%, patient already has been started on REM doesn't wear and Decadron, his initial admit x-ray cystoscopy right midlung field and left lower lid feeding infiltrate patient gradually got worse initially has been on room air oxygen requirement keep on going up to 3 L and subsequently on 5 L high flow oxygen with that oxygen saturation is 93%, critical care time spent 35 minutes Objective - Vital Signs Vital signs: Vital Signs Temp 98 F 09/05/20 04:00 Pulse 97 09/05/20 07:00 Resp 34 H 09/05/20 07:00 BP 134/62 09/05/20 01:45 Pulse Ox 98 09/05/20 07:00 Intake & Output 09/04/20 09/05/20 09/05/20 18:59 06:59 18:59 Intake Total 8950.508 0659.899 0 Output Total 2500 180 Balance -497.460 8084.899 0 Weight 122.3 kg 124.8 kg Intake: IV 274 349 Cefepime 1 gm In Sodium 50 50 Chloride 0.9% 50 ml @ 12. 5 mls/hr IVPB Q12HR [facility] Rx#:[id number] Normal Saline PRessure 24 39 bag sodium chloride @ 10ml hr 200 260 Intake, IV Titration 866.602 654.899 0 Amount Insulin Regular 100 unit 76.289 106.775 0 In Sodium Chloride 0.9% 100 ml @ Per Protocol IV .Q0M [facility] Rx#:[id number] Norepinephrine 32 mg In 6.019 Sodium Chloride 0.9% 218 ml @ 0.05 MCG/KG/MIN 2. 866 mls/hr IV .Q24H [facility] Rx#:[id number] Norepinephrine 4 mg In 288.976 440.760 Sodium Chloride 0.9% 250 ml @ 0.1 MCG/KG/MIN 38. 862 mls/hr IV .Q6H33M [facility] Rx#:[id number] metroNIDAZOLE-NS PMX 500 200 mg In Saline 1 100ml.bag @ 100 mls/hr IVPB Q8HR [facility] Rx#:[id number] propofoL 1,000 mg In 301.337 101.345 Empty Bag 1 bag @ Titrate IV .Q0M [facility] Rx#: [id number] Tube Feeding 408 442 Other 210 90 Output: Chest Tube Drainage 0 140 Chest Tube Right 0 100 Chest Tube Right Upper 0 Left Upper Anterior Chest 0 40 Urine 0 40 Hemodialysis 2500 Other: Voiding Method Indwelling Catheter Indwelling Catheter ABP, PAP, CO, CI - Last Documented Arterial Blood Pressure 122/52 - Exam - Constitutional General appearance: Intubated medically paralyzed on full ventilator support - EENT Eyes: EOMI, PERRLA Ears: bilateral: normal - Neck Neck: normal ROM Carotids: bilateral: upstroke normal Thyroid: bilateral: normal size - Respiratory Respiratory: bilateral: diminished - Cardiovascular Rhythm: regular Heart sounds: normal: S1, S2 - Gastrointestinal General gastrointestinal: normal bowel sounds - Neurologic Neurologic: CNII-XII intact - Musculoskeletal Musculoskeletal: gait normal, generalized weakness, strength equal bilaterally - Psychiatric Psychiatric: Appears, now post medical paralysis - Labs CBC & Chem 7: 09/05/20 03:20 09/05/20 03:20 Labs: Abnormal Lab Results - Last 24 Hours (Table) 09/04/20 09/04/20 09/04/20 Range/Units 04:39 10:28 10:30 WBC (3.8-10.6) k/uL RBC (4.30-5.90) m/uL Hgb (13.0-17.5) gm/dL Hct (39.0-53.0) % Neutrophils # (1.3-7.7) k/uL Lymphocytes # (1.0-4.8) k/uL Monocytes # (0-1.0) k/uL Basophils # (0-0.2) k/uL ABG pH (7.35-7.45) ABG pCO2 (35-45) mmHg ABG pO2 (83-108) mmHg ABG Total CO2 (19-24) mmol/L ABG O2 Saturation (94-97) % Sodium (137-145) mmol/L BUN (9-20) mg/dL Creatinine (0.66-1.25) mg/dL Glucose (74-99) mg/dL POC Glucose (mg/dL) 64 L 125 H (75-99) mg/dL Calcium (8.4-10.2) mg/dL Phosphorus (2.5-4.5) mg/dL Ferritin 1264.8 H (22.0-322.0) ng/mL Alkaline Phosphatase (38-126) U/L Lactate Dehydrogenase (313-618) U/L Creatine Kinase (55-170) U/L C-Reactive Protein (<10.0) mg/L Total Protein (6.3-8.2) g/dL Albumin (3.5-5.0) g/dL 09/04/20 09/04/20 09/04/20 Range/Units 12:44 14:25 16:23 WBC (3.8-10.6) k/uL RBC (4.30-5.90) m/uL Hgb (13.0-17.5) gm/dL Hct (39.0-53.0) % Neutrophils # (1.3-7.7) k/uL Lymphocytes # (1.0-4.8) k/uL Monocytes # (0-1.0) k/uL Basophils # (0-0.2) k/uL ABG pH 7.21 L (7.35-7.45) ABG pCO2 58 H (35-45) mmHg ABG pO2 69 L (83-108) mmHg ABG Total CO2 25 H (19-24) mmol/L ABG O2 Saturation 89.0 L (94-97) % Sodium (137-145) mmol/L BUN (9-20) mg/dL Creatinine (0.66-1.25) mg/dL Glucose (74-99) mg/dL POC Glucose (mg/dL) 156 H 157 H (75-99) mg/dL Calcium (8.4-10.2) mg/dL Phosphorus (2.5-4.5) mg/dL Ferritin (22.0-322.0) ng/mL Alkaline Phosphatase (38-126) U/L Lactate Dehydrogenase (313-618) U/L Creatine Kinase (55-170) U/L C-Reactive Protein (<10.0) mg/L Total Protein (6.3-8.2) g/dL Albumin (3.5-5.0) g/dL 09/04/20 09/04/20 09/04/20 Range/Units 17:17 19:46 22:03 WBC (3.8-10.6) k/uL RBC (4.30-5.90) m/uL Hgb (13.0-17.5) gm/dL Hct (39.0-53.0) % Neutrophils # (1.3-7.7) k/uL Lymphocytes # (1.0-4.8) k/uL Monocytes # (0-1.0) k/uL Basophils # (0-0.2) k/uL ABG pH (7.35-7.45) ABG pCO2 (35-45) mmHg ABG pO2 (83-108) mmHg ABG Total CO2 (19-24) mmol/L ABG O2 Saturation (94-97) % Sodium (137-145) mmol/L BUN (9-20) mg/dL Creatinine (0.66-1.25) mg/dL Glucose (74-99) mg/dL POC Glucose (mg/dL) 141 H 102 H 128 H (75-99) mg/dL Calcium (8.4-10.2) mg/dL Phosphorus (2.5-4.5) mg/dL Ferritin (22.0-322.0) ng/mL Alkaline Phosphatase (38-126) U/L Lactate Dehydrogenase (313-618) U/L Creatine Kinase (55-170) U/L C-Reactive Protein (<10.0) mg/L Total Protein (6.3-8.2) g/dL Albumin (3.5-5.0) g/dL 09/05/20 09/05/20 09/05/20 Range/Units 00:09 02:06 03:20 WBC 20.7 H (3.8-10.6) k/uL RBC 3.16 L (4.30-5.90) m/uL Hgb 9.0 L (13.0-17.5) gm/dL Hct 27.2 L (39.0-53.0) % Neutrophils # 18.3 H (1.3-7.7) k/uL Lymphocytes # 0.5 L (1.0-4.8) k/uL Monocytes # 1.2 H (0-1.0) k/uL Basophils # 0.3 H (0-0.2) k/uL ABG pH (7.35-7.45) ABG pCO2 (35-45) mmHg ABG pO2 (83-108) mmHg ABG Total CO2 (19-24) mmol/L ABG O2 Saturation (94-97) % Sodium (137-145) mmol/L BUN (9-20) mg/dL Creatinine (0.66-1.25) mg/dL Glucose (74-99) mg/dL POC Glucose (mg/dL) 152 H 129 H (75-99) mg/dL Calcium (8.4-10.2) mg/dL Phosphorus (2.5-4.5) mg/dL Ferritin (22.0-322.0) ng/mL Alkaline Phosphatase (38-126) U/L Lactate Dehydrogenase (313-618) U/L Creatine Kinase (55-170) U/L C-Reactive Protein (<10.0) mg/L Total Protein (6.3-8.2) g/dL Albumin (3.5-5.0) g/dL 09/05/20 09/05/20 09/05/20 Range/Units 03:20 04:07 04:44 WBC (3.8-10.6) k/uL RBC (4.30-5.90) m/uL Hgb (13.0-17.5) gm/dL Hct (39.0-53.0) % Neutrophils # (1.3-7.7) k/uL Lymphocytes # (1.0-4.8) k/uL Monocytes # (0-1.0) k/uL Basophils # (0-0.2) k/uL ABG pH 7.25 L (7.35-7.45) ABG pCO2 48 H (35-45) mmHg ABG pO2 120 H (83-108) mmHg ABG Total CO2 (19-24) mmol/L ABG O2 Saturation (94-97) % Sodium 133 L (137-145) mmol/L BUN 75 H (9-20) mg/dL Creatinine 5.11 H (0.66-1.25) mg/dL Glucose 125 H (74-99) mg/dL POC Glucose (mg/dL) 142 H (75-99) mg/dL Calcium 7.1 L (8.4-10.2) mg/dL Phosphorus 7.8 H (2.5-4.5) mg/dL Ferritin (22.0-322.0) ng/mL Alkaline Phosphatase 173 H (38-126) U/L Lactate Dehydrogenase 1172 H (313-618) U/L Creatine Kinase 443 H (55-170) U/L C-Reactive Protein 46.7 H (<10.0) mg/L Total Protein 4.6 L (6.3-8.2) g/dL Albumin 2.0 L (3.5-5.0) g/dL 09/05/20 09/05/20 Range/Units 05:42 08:19 WBC (3.8-10.6) k/uL RBC (4.30-5.90) m/uL Hgb (13.0-17.5) gm/dL Hct (39.0-53.0) % Neutrophils # (1.3-7.7) k/uL Lymphocytes # (1.0-4.8) k/uL Monocytes # (0-1.0) k/uL Basophils # (0-0.2) k/uL ABG pH (7.35-7.45) ABG pCO2 (35-45) mmHg ABG pO2 (83-108) mmHg ABG Total CO2 (19-24) mmol/L ABG O2 Saturation (94-97) % Sodium (137-145) mmol/L BUN (9-20) mg/dL Creatinine (0.66-1.25) mg/dL Glucose (74-99) mg/dL POC Glucose (mg/dL) 124 H 165 H (75-99) mg/dL Calcium (8.4-10.2) mg/dL Phosphorus (2.5-4.5) mg/dL Ferritin (22.0-322.0) ng/mL Alkaline Phosphatase (38-126) U/L Lactate Dehydrogenase (313-618) U/L Creatine Kinase (55-170) U/L C-Reactive Protein (<10.0) mg/L Total Protein (6.3-8.2) g/dL Albumin (3.5-5.0) g/dL Microbiology - Last 24 Hours (Table) 08/31/20 17:21 Blood Culture - Preliminary Blood No Growth after 96 hours Assessment and Plan Assessment: Multiorgan failure including renal respiratory hematopoietic and cardiovascular Acute renal failure due to acute tubular necrosis related to Covid 19 pneumonia Mediastinal and bilateral pneumothorax Acute hypoxic and hypercapnic respiratory failure Status post respiratory arrest patient intubated on full ventilator support lung protective strategy MSSA pneumonia Bilateral DVT Acute kidney injury likely related to acute tubular necrosis as well as vancomycin associated renal damage on daily dialysis Free air in the abdomen due to mediastinal emphysema and pneumothorax Acute hypoxic respiratory failure Covid 19 pneumonia and ARDS related to that Type 2 diabetes mellitus Hypertension hypertensive cardiovascular disease Dehydration hypovolemia and hyponatremia Depression Overall prognosis is very poor Plan: Ventilator support adjustment as needed Anticoagulation has been stopped per recommendation of hematology Consider resuming heparin drip and 24-48 hours awaiting factor X A levels Maintain bilateral chest tube Hemo-dialysis is in progress Continue to follow sugars closely, continue insulin drip Vasopressors as needed Medical paralysis Status post Convalescent plasma Continue Decadron and status post IV Remdesivir for 5 days respectively Further plan of care as per clinical response of the patient, overall prognosis is guarded with likelihood of recovery is poor Multiorgan failure Time with Patient: Greater than 30
--- NOTE | 2020-09-05 09:57 | P.PN ---
Subjective Patient is seen in follow-up for acute kidney injury. Creatinine peaked at 6.5 as of August 31. He was started on hemodialysis for low urine output and volume overload. Remains oliguric. Diuretic unresponsive. Currently on 80% FiO2. Intubated. Tolerated 2.5 L ultrafiltration yesterday. He is receiving tube feeding. Still on Levophed. Vital signs are stable. On vasopressor support. Intubated. Regular rhythm noted on the monitor. No distention noted. 2+ edema. Exam discussed in detail with the nurse. Objective - Vital Signs Vital signs: Vital Signs Temp 98 F 09/05/20 04:00 Pulse 97 09/05/20 07:00 Resp 34 H 09/05/20 07:00 BP 134/62 09/05/20 01:45 Pulse Ox 98 09/05/20 07:00 Intake & Output 09/04/20 09/05/20 09/05/20 18:59 06:59 18:59 Intake Total 4967.158 9613.899 0 Output Total 2500 180 Balance -632.723 8484.899 0 Weight 122.3 kg 124.8 kg Intake: IV 274 349 Cefepime 1 gm In Sodium 50 50 Chloride 0.9% 50 ml @ 12. 5 mls/hr IVPB Q12HR [facility] Rx#:[id number] Normal Saline PRessure 24 39 bag sodium chloride @ 10ml hr 200 260 Intake, IV Titration 866.602 654.899 0 Amount Insulin Regular 100 unit 76.289 106.775 0 In Sodium Chloride 0.9% 100 ml @ Per Protocol IV .Q0M [facility] Rx#:[id number] Norepinephrine 32 mg In 6.019 Sodium Chloride 0.9% 218 ml @ 0.05 MCG/KG/MIN 2. 866 mls/hr IV .Q24H [facility] Rx#:[id number] Norepinephrine 4 mg In 288.976 440.760 Sodium Chloride 0.9% 250 ml @ 0.1 MCG/KG/MIN 38. 862 mls/hr IV .Q6H33M [facility] Rx#:[id number] metroNIDAZOLE-NS PMX 500 200 mg In Saline 1 100ml.bag @ 100 mls/hr IVPB Q8HR [facility] Rx#:[id number] propofoL 1,000 mg In 301.337 101.345 Empty Bag 1 bag @ Titrate IV .Q0M [facility] Rx#: [id number] Tube Feeding 408 442 Other 210 90 Output: Chest Tube Drainage 0 140 Chest Tube Right 0 100 Chest Tube Right Upper 0 Left Upper Anterior Chest 0 40 Urine 0 40 Hemodialysis 2500 Other: Voiding Method Indwelling Catheter Indwelling Catheter ABP, PAP, CO, CI - Last Documented Arterial Blood Pressure 122/52 - Labs CBC & Chem 7: 09/05/20 03:20 09/05/20 03:20 Labs: Abnormal Lab Results - Last 24 Hours (Table) 09/04/20 09/04/20 09/04/20 Range/Units 10:28 10:30 12:44 WBC (3.8-10.6) k/uL RBC (4.30-5.90) m/uL Hgb (13.0-17.5) gm/dL Hct (39.0-53.0) % Neutrophils # (1.3-7.7) k/uL Lymphocytes # (1.0-4.8) k/uL Monocytes # (0-1.0) k/uL Basophils # (0-0.2) k/uL ABG pH (7.35-7.45) ABG pCO2 (35-45) mmHg ABG pO2 (83-108) mmHg ABG Total CO2 (19-24) mmol/L ABG O2 Saturation (94-97) % Sodium (137-145) mmol/L BUN (9-20) mg/dL Creatinine (0.66-1.25) mg/dL Glucose (74-99) mg/dL POC Glucose (mg/dL) 64 L 125 H 156 H (75-99) mg/dL Calcium (8.4-10.2) mg/dL Phosphorus (2.5-4.5) mg/dL Alkaline Phosphatase (38-126) U/L Lactate Dehydrogenase (313-618) U/L Creatine Kinase (55-170) U/L C-Reactive Protein (<10.0) mg/L Total Protein (6.3-8.2) g/dL Albumin (3.5-5.0) g/dL 09/04/20 09/04/20 09/04/20 Range/Units 14:25 16:23 17:17 WBC (3.8-10.6) k/uL RBC (4.30-5.90) m/uL Hgb (13.0-17.5) gm/dL Hct (39.0-53.0) % Neutrophils # (1.3-7.7) k/uL Lymphocytes # (1.0-4.8) k/uL Monocytes # (0-1.0) k/uL Basophils # (0-0.2) k/uL ABG pH 7.21 L (7.35-7.45) ABG pCO2 58 H (35-45) mmHg ABG pO2 69 L (83-108) mmHg ABG Total CO2 25 H (19-24) mmol/L ABG O2 Saturation 89.0 L (94-97) % Sodium (137-145) mmol/L BUN (9-20) mg/dL Creatinine (0.66-1.25) mg/dL Glucose (74-99) mg/dL POC Glucose (mg/dL) 157 H 141 H (75-99) mg/dL Calcium (8.4-10.2) mg/dL Phosphorus (2.5-4.5) mg/dL Alkaline Phosphatase (38-126) U/L Lactate Dehydrogenase (313-618) U/L Creatine Kinase (55-170) U/L C-Reactive Protein (<10.0) mg/L Total Protein (6.3-8.2) g/dL Albumin (3.5-5.0) g/dL 09/04/20 09/04/20 09/05/20 Range/Units 19:46 22:03 00:09 WBC (3.8-10.6) k/uL RBC (4.30-5.90) m/uL Hgb (13.0-17.5) gm/dL Hct (39.0-53.0) % Neutrophils # (1.3-7.7) k/uL Lymphocytes # (1.0-4.8) k/uL Monocytes # (0-1.0) k/uL Basophils # (0-0.2) k/uL ABG pH (7.35-7.45) ABG pCO2 (35-45) mmHg ABG pO2 (83-108) mmHg ABG Total CO2 (19-24) mmol/L ABG O2 Saturation (94-97) % Sodium (137-145) mmol/L BUN (9-20) mg/dL Creatinine (0.66-1.25) mg/dL Glucose (74-99) mg/dL POC Glucose (mg/dL) 102 H 128 H 152 H (75-99) mg/dL Calcium (8.4-10.2) mg/dL Phosphorus (2.5-4.5) mg/dL Alkaline Phosphatase (38-126) U/L Lactate Dehydrogenase (313-618) U/L Creatine Kinase (55-170) U/L C-Reactive Protein (<10.0) mg/L Total Protein (6.3-8.2) g/dL Albumin (3.5-5.0) g/dL 09/05/20 09/05/20 09/05/20 Range/Units 02:06 03:20 03:20 WBC 20.7 H (3.8-10.6) k/uL RBC 3.16 L (4.30-5.90) m/uL Hgb 9.0 L (13.0-17.5) gm/dL Hct 27.2 L (39.0-53.0) % Neutrophils # 18.3 H (1.3-7.7) k/uL Lymphocytes # 0.5 L (1.0-4.8) k/uL Monocytes # 1.2 H (0-1.0) k/uL Basophils # 0.3 H (0-0.2) k/uL ABG pH (7.35-7.45) ABG pCO2 (35-45) mmHg ABG pO2 (83-108) mmHg ABG Total CO2 (19-24) mmol/L ABG O2 Saturation (94-97) % Sodium 133 L (137-145) mmol/L BUN 75 H (9-20) mg/dL Creatinine 5.11 H (0.66-1.25) mg/dL Glucose 125 H (74-99) mg/dL POC Glucose (mg/dL) 129 H (75-99) mg/dL Calcium 7.1 L (8.4-10.2) mg/dL Phosphorus 7.8 H (2.5-4.5) mg/dL Alkaline Phosphatase 173 H (38-126) U/L Lactate Dehydrogenase 1172 H (313-618) U/L Creatine Kinase 443 H (55-170) U/L C-Reactive Protein 46.7 H (<10.0) mg/L Total Protein 4.6 L (6.3-8.2) g/dL Albumin 2.0 L (3.5-5.0) g/dL 09/05/20 09/05/20 09/05/20 Range/Units 04:07 04:44 05:42 WBC (3.8-10.6) k/uL RBC (4.30-5.90) m/uL Hgb (13.0-17.5) gm/dL Hct (39.0-53.0) % Neutrophils # (1.3-7.7) k/uL Lymphocytes # (1.0-4.8) k/uL Monocytes # (0-1.0) k/uL Basophils # (0-0.2) k/uL ABG pH 7.25 L (7.35-7.45) ABG pCO2 48 H (35-45) mmHg ABG pO2 120 H (83-108) mmHg ABG Total CO2 (19-24) mmol/L ABG O2 Saturation (94-97) % Sodium (137-145) mmol/L BUN (9-20) mg/dL Creatinine (0.66-1.25) mg/dL Glucose (74-99) mg/dL POC Glucose (mg/dL) 142 H 124 H (75-99) mg/dL Calcium (8.4-10.2) mg/dL Phosphorus (2.5-4.5) mg/dL Alkaline Phosphatase (38-126) U/L Lactate Dehydrogenase (313-618) U/L Creatine Kinase (55-170) U/L C-Reactive Protein (<10.0) mg/L Total Protein (6.3-8.2) g/dL Albumin (3.5-5.0) g/dL 09/05/20 Range/Units 08:19 WBC (3.8-10.6) k/uL RBC (4.30-5.90) m/uL Hgb (13.0-17.5) gm/dL Hct (39.0-53.0) % Neutrophils # (1.3-7.7) k/uL Lymphocytes # (1.0-4.8) k/uL Monocytes # (0-1.0) k/uL Basophils # (0-0.2) k/uL ABG pH (7.35-7.45) ABG pCO2 (35-45) mmHg ABG pO2 (83-108) mmHg ABG Total CO2 (19-24) mmol/L ABG O2 Saturation (94-97) % Sodium (137-145) mmol/L BUN (9-20) mg/dL Creatinine (0.66-1.25) mg/dL Glucose (74-99) mg/dL POC Glucose (mg/dL) 165 H (75-99) mg/dL Calcium (8.4-10.2) mg/dL Phosphorus (2.5-4.5) mg/dL Alkaline Phosphatase (38-126) U/L Lactate Dehydrogenase (313-618) U/L Creatine Kinase (55-170) U/L C-Reactive Protein (<10.0) mg/L Total Protein (6.3-8.2) g/dL Albumin (3.5-5.0) g/dL Microbiology - Last 24 Hours (Table) 08/31/20 17:21 Blood Culture - Preliminary Blood No Growth after 96 hours Assessment and Plan Plan: Assessment: 1. Acute kidney injury secondary to ATN secondary to vancomycin toxicity and sepsis. Creatinine peaked at 6.51 as of August 31. Started on hemodialysis for low urine output and volume overload. Oliguric. Diuretic unresponsive. 2. Hyperkalemia secondary to acute kidney injury and lisinopril. Improved postdialysis. 3. Acute hypoxic and hypercapnic respiratory failure. 4. Covid 19 pneumonia maintained on steroids and zinc now. 5. Respiratory and metabolic acidosis. Maintained on oral bicarbonate. 6. Pneumothorax status post bilateral chest tube placement. 7. Lower extremity DVT. Anticoagulation held due to bleeding. Hematology consulted. 8. Septic shock maintained on Levophed. 9. Hyperphosphatemia secondary to acute kidney injury maintained on PhosLo. Plan: Currently seen while undergoing hemodialysis. Continue to assess daily for need for renal replacement therapy. Wean FiO2 and vasopressors. Decrease frequency of bicarb.
[2020-09-05 10:11] LABS: Ferritin 1185.6 ng/mL (22.0-322.0)
--- NOTE | 2020-09-05 11:09 | P.PN ---
Progress Note - Text Progress Note Date: 09/05/20 The patient remains clinically unchanged. Abdomen soft. Pneumoperitoneum related to pneumothorax. Patient will continue supportive care. No surgical intervention is planned.
[2020-09-05] MEDS: CISATRACURIUM 200 MG in SODIUM CHLORIDE 0.9% 180 ML IV SCH (11:10)
[2020-09-05 11:52] LABS: Glucose,Whole Blood 112 mg/dL (75-99)
[2020-09-05 13:28] LABS: Glucose,Whole Blood 136 mg/dL (75-99)
--- NOTE | 2020-09-05 14:10 | P.PN ---
Progress Note - Text Progress Note Date: 09/05/20 Patient remains intubated, and sedated on the ventilator. He was hemodynamically stable. He continues to have small amount of bleeding and ET tube and Hallman catheter. Some oral bleeding also noted, but less than 2 days ago. D/W Nsg Vital signs reviewed. Respiratory rate elevated currently. Other vitals within normal limits All labs current data reviewed. Hemoglobin was 9 versus 9.9. Coags and fibrinogen were all normal. Assessment and plan: #1. Bleeding diathesis - this is felt to be mostly due to enhanced anticoagulant effect of Lovenox mainly, in to a lesser extent with heparin due to the patient's renal insufficiency. He also likely has some platelet dysfunction due to renal failure. Clinically he does not appear to be having any increased bleeding at this time. Drop in hemoglobin is minor and appears to be in the same range. Platelet counts are normal. No coagulopathy noted on labs. - Anti-X A has been ordered and is pending. We will call lab to try to expedite the same. As this is a send out test, results may be delayed. In that situation it would be reasonable to consider resuming anticoagulation with low intensity heparin, with close monitoring, in the next 24-48 hours with the patient is not show any signs of progressive bleeding. - Toward Lovenox as noted in the initial consult, and discussed with the admitting service and [facility] - Okay to continue aspirin as long as the patient does not have any evidence of progressive bleeding. - Continue to monitor coagulation parameters to check for any development of DIC-type phenomenon related to his underlying COVID
[2020-09-05 15:32] LABS: Glucose,Whole Blood 197 mg/dL (75-99)
[2020-09-05 18:29] LABS: Glucose,Whole Blood 152 mg/dL (75-99)
[2020-09-05] MEDS: CHOLECALCIFEROL 1,000 UNIT TAB PO SCH (20:01)
[2020-09-05] MEDS: ASPIRIN 81 MG PO SCH (20:01)
[2020-09-05 20:13] LABS: Glucose,Whole Blood 132 mg/dL (75-99)
--- NOTE | 2020-09-05 21:50 | PN ---
PROGRESS NOTE DATE OF SERVICE: 09/05/2020 REASON FOR FOLLOWUP: Pneumonia. INTERVAL HISTORY: Patient is currently afebrile. The patient is hemodynamically stable, not on pressor support. FiO2 is currently down to 70%. No significant purulent secretions through the ET or any worsening diarrhea reported by nursing staff. PHYSICAL EXAMINATION: Blood pressure is 130/51 with a pulse of 105. Temperature 98.1. He is 95% on 60% FiO2. General description is a middle-aged male intubated on the vent. Respiratory system: Unlabored breathing, decreased breath sounds in the base, with no wheeze. Heart S1, S2. Regular rate and rhythm. Abdomen soft. No tenderness. Extremities: No edema of the feet. LABS: Hemoglobin is 9.8, white count 20.7, BUN of 75, creatinine 5.11. DIAGNOSTIC IMPRESSION AND PLAN: Patient with acute respiratory failure which is multifactorial in this patient who did have a component of pneumonia. Sputum is positive for MSSA as well as Pseudomonas aeruginosa and patient is covered with cefepime to continue along with respiratory support and monitor clinical course closely. MMODL / IJN: [id number] /
[2020-09-05 22:44] LABS: Glucose,Whole Blood 138 mg/dL (75-99)
[2020-09-05 23:55] LABS: Glucose,Whole Blood 146 mg/dL (75-99)
[2020-09-06 03:11] LABS: Glucose,Whole Blood 113 mg/dL (75-99)
[2020-09-06] MEDS: NOREPINEPHRINE 32 MG in SODIUM CHLORIDE 0.9% 218 ML IV SCH (03:32)
[2020-09-06 04:40] LABS: Partial Thromboplastin Time 26.1 sec (22.0-30.0); Prothrombin Time 10.3 sec (9.0-12.0)
[2020-09-06 04:48] LABS: C Reactive Protein 54.9 mg/L (<10.0); Calcium 7.2 mg/dL (8.4-10.2); Phosphorus 7.6 mg/dL (2.5-4.5); Potassium 4.5 mmol/L (3.5-5.1); Total Bilirubin 0.3 mg/dL (0.2-1.3); Total Protein 4.7 g/dL (6.3-8.2)
[2020-09-06 05:25] LABS: ABG Base Excess -7.5 mmol/L; ABG HCO3 20 mmol/L (21-25); ABG Oxygen Saturation 90.1 % (94-97); ABG PCO2 47 mmHg (35-45); ABG PH 7.24 (7.35-7.45); ABG PO2 66 mmHg (83-108); ABG TCO2 21 mmol/L (19-24); Allen Test Performed? Yes
[2020-09-06 05:28] LABS: Basophils # (A) 0.1 k/uL (0-0.2); Basophils % (A) 0 %; Eosinophils # (A) 0.2 k/uL (0-0.7); Eosinophils % (A) 1 %; HCT 26.6 % (39.0-53.0); HGB 8.6 gm/dL (13.0-17.5); Lymphocytes # (A) 0.6 k/uL (1.0-4.8); Lymphocytes % (A) 3 %; MCH 28.3 pg (25.0-35.0); MCHC 32.5 g/dL (31.0-37.0); MCV 87.1 fL (80.0-100.0); Mean Platelet Volume 8.5; Monocytes # (A) 0.9 k/uL (0-1.0); Monocytes % (A) 5 %; Neutrophils # (A) 18.1 k/uL (1.3-7.7); Neutrophils % (A) 90 %; Platelet Count 232 k/uL (150-450); Poikilocytosis Slight; RBC 3.05 m/uL (4.30-5.90); RDW 15.4 % (11.5-15.5); WBC 20.1 k/uL (3.8-10.6)
[2020-09-06 06:13] LABS: Glucose,Whole Blood 162 mg/dL (75-99)
[2020-09-06] MEDS: CALCIUM ACETATE 667 MG TAB PO SCH ×3 (06:59→18:01)
--- NOTE | 2020-09-06 07:54 | XR ---
EXAMINATION TYPE: XR chest 1V portable DATE OF EXAM: 09/06/2020 Comparison: 09/05/2020 Clinical History: 59-year-old male intubated Findings: ET and NG tubes are satisfactory. Right PICC tip not well seen, at least within the upper SVC. 2 ches t tubes on the right and one chest tube on the left remain in place. Diffuse interstitial opacities p ersist. Opacity in the right lower lung is slightly less confluent now. No appreciable pneumothorax. Subcutaneous emphysema remains along the upper thorax, slightly improving prior. Impression: 1. Diffuse interstitial infiltrates remain. Airspace disease in the right lower lung shows some impro vement. 2. Bilateral chest tubes. No appreciable pneumothorax. 3. Slight improvement in the patient's subcutaneous emphysema.
[2020-09-06] MEDS: ASCORBIC ACID 500 MG TAB PO SCH (08:47)
[2020-09-06] MEDS: SODIUM BICARBONATE TAB 650 MG TAB PO SCH ×2 (08:48→20:11)
[2020-09-06] MEDS: CHOLECALCIFEROL 1,000 UNIT TAB PO SCH (08:48)
[2020-09-06] MEDS: DEXAMETHASONE SOD PHOSPHATE 10 MG/ML 1 ML VIAL IV SCH (08:48)
[2020-09-06] MEDS: FAMOTIDINE 20 MG/2 ML VIAL IV SCH (08:48)
[2020-09-06] MEDS: CHLORHEXIDINE GLUCONATE 15 ML CUP MUCOUS MEM SCH ×2 (08:48→20:11)
[2020-09-06] MEDS: ZINC SULFATE 220 MG CAP PO SCH (08:48)
[2020-09-06] MEDS: CEFEPIME 1 GM in SODIUM CHLORIDE 0.9% 50 ML IVPB SCH ×2 (08:49→20:11)
[2020-09-06] MEDS: metroNIDAZOLE-NS PMX 500 MG in SALINE 1 100ML.BAG IVPB SCH ×3 (08:49→23:36)
[2020-09-06] MEDS: CISATRACURIUM 200 MG in SODIUM CHLORIDE 0.9% 180 ML IV SCH (08:49)
[2020-09-06 09:00] LABS: Glucose,Whole Blood 173 mg/dL (75-99)
--- NOTE | 2020-09-06 09:08 | P.PN ---
Subjective Patient is seen in follow-up for acute kidney injury. Creatinine peaked at 6.5 as of August 31. He was started on hemodialysis for low urine output and volume overload. Remains oliguric. Diuretic unresponsive. Currently on 60% FiO2. Intubated. Tolerated 2.5 L ultrafiltration yesterday. He is receiving tube feeding. Still on Levophed. No changes overnight. Vital signs are stable. On vasopressor support. Intubated. Exam discussed in detail with the nurse. Objective - Vital Signs Vital signs: Vital Signs Temp 98.8 F 09/06/20 04:00 Pulse 116 H 09/06/20 07:00 Resp 34 H 09/06/20 07:00 BP 134/62 09/06/20 03:15 Pulse Ox 91 L 09/06/20 07:00 Intake & Output 09/05/20 09/06/20 09/06/20 18:59 06:59 18:59 Intake Total 8459.179 9098.105 89.724 Output Total 2735 60 5 Balance -8666.321 5364.105 84.724 Weight 124.1 kg Intake: IV 343 276 23 Cefepime 1 gm In Sodium 50 Chloride 0.9% 50 ml @ 12. 5 mls/hr IVPB Q12HR [facility] Rx#:[id number] Fluconazole in NaCl,Iso- 50 Osm 100 mg In Saline 1 50ml.bag @ 50 mls/hr IVPB DAILY [facility] Rx#:[id number] Normal Saline PRessure 33 36 3 bag sodium chloride @ 10ml hr 210 240 20 Intake, IV Titration 548.473 380.105 32.724 Amount Insulin Regular 100 unit 81.052 56.914 32.724 In Sodium Chloride 0.9% 100 ml @ Per Protocol IV .Q0M [facility] Rx#:[id number] Norepinephrine 32 mg In 65.362 121.819 Sodium Chloride 0.9% 218 ml @ 0.05 MCG/KG/MIN 2. 866 mls/hr IV .Q24H [facility] Rx#:[id number] metroNIDAZOLE-NS PMX 500 200 mg In Saline 1 100ml.bag @ 100 mls/hr IVPB Q8HR [facility] Rx#:[id number] propofoL 1,000 mg In 202.059 201.372 Empty Bag 1 bag @ Titrate IV .Q0M [facility] Rx#: [id number] Tube Feeding 374 408 34 Other 150 90 Output: Chest Tube Drainage 40 Chest Tube Right 10 Chest Tube Right Upper 0 Left Upper Anterior Chest 30 Urine 195 60 5 Hemodialysis 2500 Other: Voiding Method Indwelling Catheter Indwelling Catheter ABP, PAP, CO, CI - Last Documented Arterial Blood Pressure 146/49 - Labs CBC & Chem 7: 09/06/20 04:15 09/06/20 04:15 Labs: Abnormal Lab Results - Last 24 Hours (Table) 09/05/20 09/05/20 09/05/20 Range/Units 03:20 11:50 13:26 WBC (3.8-10.6) k/uL RBC (4.30-5.90) m/uL Hgb (13.0-17.5) gm/dL Hct (39.0-53.0) % Neutrophils # (1.3-7.7) k/uL Lymphocytes # (1.0-4.8) k/uL Fibrinogen (200-500) mg/dL ABG pH (7.35-7.45) ABG pCO2 (35-45) mmHg ABG pO2 (83-108) mmHg ABG HCO3 (21-25) mmol/L ABG O2 Saturation (94-97) % Sodium (137-145) mmol/L Carbon Dioxide (22-30) mmol/L BUN (9-20) mg/dL Creatinine (0.66-1.25) mg/dL Glucose (74-99) mg/dL POC Glucose (mg/dL) 112 H 136 H (75-99) mg/dL Calcium (8.4-10.2) mg/dL Phosphorus (2.5-4.5) mg/dL Ferritin 1185.6 H (22.0-322.0) ng/mL Alkaline Phosphatase (38-126) U/L Lactate Dehydrogenase (313-618) U/L Creatine Kinase (55-170) U/L C-Reactive Protein (<10.0) mg/L Total Protein (6.3-8.2) g/dL Albumin (3.5-5.0) g/dL 09/05/20 09/05/20 09/05/20 Range/Units 15:30 18:26 20:11 WBC (3.8-10.6) k/uL RBC (4.30-5.90) m/uL Hgb (13.0-17.5) gm/dL Hct (39.0-53.0) % Neutrophils # (1.3-7.7) k/uL Lymphocytes # (1.0-4.8) k/uL Fibrinogen (200-500) mg/dL ABG pH (7.35-7.45) ABG pCO2 (35-45) mmHg ABG pO2 (83-108) mmHg ABG HCO3 (21-25) mmol/L ABG O2 Saturation (94-97) % Sodium (137-145) mmol/L Carbon Dioxide (22-30) mmol/L BUN (9-20) mg/dL Creatinine (0.66-1.25) mg/dL Glucose (74-99) mg/dL POC Glucose (mg/dL) 197 H 152 H 132 H (75-99) mg/dL Calcium (8.4-10.2) mg/dL Phosphorus (2.5-4.5) mg/dL Ferritin (22.0-322.0) ng/mL Alkaline Phosphatase (38-126) U/L Lactate Dehydrogenase (313-618) U/L Creatine Kinase (55-170) U/L C-Reactive Protein (<10.0) mg/L Total Protein (6.3-8.2) g/dL Albumin (3.5-5.0) g/dL 09/05/20 09/05/20 09/06/20 Range/Units 22:42 23:54 03:09 WBC (3.8-10.6) k/uL RBC (4.30-5.90) m/uL Hgb (13.0-17.5) gm/dL Hct (39.0-53.0) % Neutrophils # (1.3-7.7) k/uL Lymphocytes # (1.0-4.8) k/uL Fibrinogen (200-500) mg/dL ABG pH (7.35-7.45) ABG pCO2 (35-45) mmHg ABG pO2 (83-108) mmHg ABG HCO3 (21-25) mmol/L ABG O2 Saturation (94-97) % Sodium (137-145) mmol/L Carbon Dioxide (22-30) mmol/L BUN (9-20) mg/dL Creatinine (0.66-1.25) mg/dL Glucose (74-99) mg/dL POC Glucose (mg/dL) 138 H 146 H 113 H (75-99) mg/dL Calcium (8.4-10.2) mg/dL Phosphorus (2.5-4.5) mg/dL Ferritin (22.0-322.0) ng/mL Alkaline Phosphatase (38-126) U/L Lactate Dehydrogenase (313-618) U/L Creatine Kinase (55-170) U/L C-Reactive Protein (<10.0) mg/L Total Protein (6.3-8.2) g/dL Albumin (3.5-5.0) g/dL 09/06/20 09/06/20 09/06/20 Range/Units 04:15 04:15 04:15 WBC 20.1 H (3.8-10.6) k/uL RBC 3.05 L (4.30-5.90) m/uL Hgb 8.6 L (13.0-17.5) gm/dL Hct 26.6 L (39.0-53.0) % Neutrophils # 18.1 H (1.3-7.7) k/uL Lymphocytes # 0.6 L (1.0-4.8) k/uL Fibrinogen 519 H (200-500) mg/dL ABG pH (7.35-7.45) ABG pCO2 (35-45) mmHg ABG pO2 (83-108) mmHg ABG HCO3 (21-25) mmol/L ABG O2 Saturation (94-97) % Sodium 134 L (137-145) mmol/L Carbon Dioxide 21 L (22-30) mmol/L BUN 70 H (9-20) mg/dL Creatinine 4.93 H (0.66-1.25) mg/dL Glucose 124 H (74-99) mg/dL POC Glucose (mg/dL) (75-99) mg/dL Calcium 7.2 L (8.4-10.2) mg/dL Phosphorus 7.6 H (2.5-4.5) mg/dL Ferritin (22.0-322.0) ng/mL Alkaline Phosphatase 175 H (38-126) U/L Lactate Dehydrogenase 1126 H (313-618) U/L Creatine Kinase 203 H (55-170) U/L C-Reactive Protein 54.9 H (<10.0) mg/L Total Protein 4.7 L (6.3-8.2) g/dL Albumin 2.0 L (3.5-5.0) g/dL 09/06/20 09/06/20 09/06/20 Range/Units 05:18 06:11 08:58 WBC (3.8-10.6) k/uL RBC (4.30-5.90) m/uL Hgb (13.0-17.5) gm/dL Hct (39.0-53.0) % Neutrophils # (1.3-7.7) k/uL Lymphocytes # (1.0-4.8) k/uL Fibrinogen (200-500) mg/dL ABG pH 7.24 L (7.35-7.45) ABG pCO2 47 H (35-45) mmHg ABG pO2 66 L (83-108) mmHg ABG HCO3 20 L (21-25) mmol/L ABG O2 Saturation 90.1 L (94-97) % Sodium (137-145) mmol/L Carbon Dioxide (22-30) mmol/L BUN (9-20) mg/dL Creatinine (0.66-1.25) mg/dL Glucose (74-99) mg/dL POC Glucose (mg/dL) 162 H 173 H (75-99) mg/dL Calcium (8.4-10.2) mg/dL Phosphorus (2.5-4.5) mg/dL Ferritin (22.0-322.0) ng/mL Alkaline Phosphatase (38-126) U/L Lactate Dehydrogenase (313-618) U/L Creatine Kinase (55-170) U/L C-Reactive Protein (<10.0) mg/L Total Protein (6.3-8.2) g/dL Albumin (3.5-5.0) g/dL Microbiology - Last 24 Hours (Table) 08/31/20 17:21 Blood Culture - Preliminary Blood No Growth after 120 hours Assessment and Plan Plan: Assessment: 1. Acute kidney injury secondary to ATN secondary to vancomycin toxicity and sepsis. Creatinine peaked at 6.51 as of August 31. Started on hemodialysis for low urine output and volume overload. Oliguric. Diuretic unresponsive. 2. Hyperkalemia secondary to acute kidney injury and lisinopril. Improved postdialysis. 3. Acute hypoxic and hypercapnic respiratory failure. 4. Covid 19 pneumonia maintained on steroids and zinc now. 5. Respiratory and metabolic acidosis. Maintained on oral bicarbonate. 6. Pneumothorax status post bilateral chest tube placement. 7. Lower extremity DVT. Anticoagulation held due to bleeding. Hematology following. 8. Septic shock maintained on Levophed. 9. Hyperphosphatemia secondary to acute kidney injury maintained on PhosLo. Plan: Hemodialysis tomorrow. Continue to monitor for renal recovery. Wean FiO2 and vasopressors. On tube feeds.
[2020-09-06 09:33] LABS: Glucose,Whole Blood 176 mg/dL (75-99)
[2020-09-06 10:18] LABS: Ferritin 1171.8 ng/mL (22.0-322.0)
[2020-09-06] MEDS: INSULIN REGULAR 100 UNIT in SODIUM CHLORIDE 0.9% 100 ML IV SCH (10:49)
--- NOTE | 2020-09-06 11:10 | P.PN ---
Progress Note - Text Progress Note Date: 09/06/20 Patient remains in the ICU. There is no significant changes condition. On exam her abdomen is soft. Patient will receive supportive care.
[2020-09-06] MEDS: ACETAMINOPHEN TAB 500 MG TAB PO PRN (12:10)
[2020-09-06 12:18] LABS: Glucose,Whole Blood 135 mg/dL (75-99)
[2020-09-06 14:11] LABS: Glucose,Whole Blood 168 mg/dL (75-99)
[2020-09-06 15:53] LABS: Glucose,Whole Blood 158 mg/dL (75-99)
[2020-09-06 18:06] LABS: Glucose,Whole Blood 148 mg/dL (75-99)
[2020-09-06] MEDS: ASPIRIN 81 MG PO SCH (20:11)
[2020-09-06 20:19] LABS: Glucose,Whole Blood 121 mg/dL (75-99)
--- NOTE | 2020-09-06 20:24 | PN ---
PROGRESS NOTE DATE OF SERVICE: 09/06/2020 REASON FOR FOLLOWUP: Pneumonia. INTERVAL HISTORY: Patient did spike a fever of 100.7 Fahrenheit. The patient still on pressor support. FiO2 is currently at 50%. No significant purulent secretion through the ET or any worsening diarrhea reported by nursing staff. PHYSICAL EXAMINATION: Blood pressure 100/43, pulse of 89, temperature 99.3, T-max 100.6. He is 97% on 50% FiO2. General description is a middle-aged male, intubated on the vent. Respiratory system: Unlabored breathing, decreased breath sounds in the base, no wheeze. Heart S1, S2. Regular rate and rhythm. Abdomen soft, mildly distended. No guarding, no rigidity. Extremities: 2+ edema of the feet. LABS: Hemoglobin 8.3, white count 20.1. BUN of 7, creatinine 4.93. DIAGNOSTIC IMPRESSION AND PLAN: Patient with acute respiratory failure which is multifactorial in this patient who did have a component of pneumonia. Sputum has been MSSA and Pseudomonas, covered with cefepime, now with a new fever. We will recheck his cultures and adjust antibiotic further if needed. Continue supportive care. MMODL / IJN: [id number] /
[2020-09-06 21:52] LABS: Glucose,Whole Blood 129 mg/dL (75-99)
--- NOTE | 2020-09-06 22:45 | P.PN ---
Subjective Progress Note Date: 09/05/20 Principal diagnosis: Covid 19 infection/pneumonia 53-year-old male is admitted for Covid19 pneumonitis, sepsis. Patient went into hypoxemia last night ended up on 3 L of oxygen.overall feeling little bit better. 08/17/2020 Patient's is pretty status is worse and patient is not doing well in spite of high flow nasal cannula oxygen along with 100% many mask. Patient is being started on Remdesivir. Patient is still complaining of shortness of breath Constitutional: Denied any fatigue denied any fever. Cardio vascular: denied any chest pain, palpitations Gastrointestinal denied any nausea vomiting Pulmonary: As mentioned above Neurologic denied any new focal deficits All inpatient medications were reviewed and appropriate changes in these medications as dictated in the interval history and assessment and plan. 08/18/2020 Patient is seen and evaluated in follow-up and continues to be maintained on high flow oxygen via nasal cannula. Infectious disease is following. Patient continues to have shortness of breath especially with exertion. Discussed with the patient about increasing activity and getting up to the commode and chair. Patient states he feels slightly better today although continues to be extremely dyspneic. Review of systems: Constitutional: No reports of fatigue, fever, or chills Cardiovascular: No reports of chest pain or palpitations Respiratory: Reports shortness of breath with occasional cough GI: No reports of nausea, vomiting, or diarrhea : No reports of dysuria or retention Neurovascular: No reports of weakness or numbness All medications have been reviewed 08/19/2020 Patient is seen and evaluated in follow-up with no real improvement of respiratory status. Patient continues to sat in the low 80s and drops quickly without oxygen. He she is currently maintained on 15 L high flow oxygen along with a nonrebreather over that and was able to obtain 90% oxygen saturation. Patient is currently sitting up at the bedside asking when he can go home. Discussed with the patient at length about respiratory status and his inability to come off oxygen at this time. White blood count elevated at 17.9 from yesterday. BMP within normal limits although blood glucose levels continue to be elevated. Patient is maintained on sliding scale along with long-acting and oral antidiabetic medications. Will continue to monitor as the dexamethasone may be a component of elevated glucose levels. Discussed with the patient about incentive spirometer and instructed to use at least 10 times every hour while awake. Patient currently denies any chest pain or palpitations. Patient is afebrile. No reports of nausea or vomiting patient states he does not have much of an appetite although is tolerating diet. 08/20/2020 Patient is seen in follow-up and continues to be on a nonrebreather and 15 L high flow oxygen and was found to be extremely anxious and hypoxic with saturations in the 70s earlier this morning Repeat chest x-ray done today shows right side pneumothorax along with pneumo mediastinum, subcutaneous emphysema. Pulmonary Dr. López is following and will be placing a chest tube this afternoon. Lovenox dose will be adjusted once chest tube is placed. White blood count elevated at 20.7. D-dimer was found to be 13.05. Review of systems: Constitutional: Anxious, no reports of fever, or chills Cardiovascular: No reports of chest pain or palpitations Respiratory: reports worsening shortness of breath and difficulty breathing GI: No reports of nausea, vomiting, or diarrhea : No reports of dysuria or retention Neurovascular: No reports of weakness or numbness All medications have been reviewed 08/21/2020 Patient is seen and evaluated and follow-up currently remains in the ICU as patient underwent right chest tube placement with Dr. López yesterday due to right pneumothorax with pneumomediastinum and subcutaneous emphysema. Patient is currently sitting up in the chair and on a nonrebreather and high flow oxygen at flow rate of 60% with an FiO2 of 85%. Patient is currently at 89% oxygen satura tion. Patient is also receiving a unit of fresh frozen plasma and is maintained on Lovenox. Blood sugars continue to be elevated and will continue to monitor with long-acting along with sliding scale. White Blood count 20.2. Chest x-ray this morning shows a stable right pneumothorax with right-sided chest tube noted and stable subcutaneous emphysema. Patient instructed to continue with incent sacha spirometer and semi-prone position with the right side up. Patient is somewhat anxious and agitated with remaining hospitalized. No reports of chest pain or palpitations. Denies any nausea or vomiting and is tolerating diet. Patient is currently afebrile. 08/22/2020 Patient has 2 chest tubes on the right side. Patient remains on airvo, there was a persistent leak in the previous chest tube. 08/23/2020 Patient the has bilateral pneumothorax right side has 2 chest tubes attached to wall suction and left-sided pneumothorax is 10-15% which is being monitored, cardiothoracic surgery evaluated the patient. Patient is presently on Bipap. Review of systems: Unable to obtain due to his clinical condition did All inpatient medications were reviewed and appropriate changes in these med ications as dictated in the interval history and assessment and plan. 08/24/2020 Patient currently remains on a BiPAP and has 2 right-sided chest tubes and awaiting for possible pigtail once more stabilized. Patient is currently unable to tolerate travel to [place] for interventional radiology to place the catheter. Chest x-ray today shows a moderate size recurrence of the right pneumothorax along with a small left apical pneumo that appears to be stable along with diffuse patchy infiltrates within bilateral lung ulloa. Pulmonary following closely. Discussed with pulmonary about the possibility of a transfer to a tertiary care center if patient's clinical status continues to deteriorate and unable to obtain the left side pigtail catheter. Remains in the ICU with close monitoring. Patient continues on IV antibiotics in the form of cefepime and vancomycin along with zinc, Lovenox, and dexamethasone. Review of systems: Constitutional: Reports fatigue, anxious, no reports of fever, or chills Cardiovascular: No reports of chest pain or palpitations Respiratory: Reports continued shortness of breath and cough GI: No reports of nausea, vomiting, or diarrhea : No reports of dysuria or retention Neurovascular: Reports weakness, no reports of numbness All medications have been reviewed 08/25/2020 Patient is seen and evaluated in follow-up and continues to be closely monitored in the ICU. Patient had a brief period Of respiratory arrest with attempts to pull out chest tubes after removing the BiPAP and was ultimately intubated. Patient was placed on sedation and appears much more calm at this time. Patient currently awaiting to receive a left side chest tube for the small pneumothorax with pulmonary. Patient continues to have 2 right-sided chest tubes at this time. White blood count elevated Review of systems: Unable to assess as patient is currently intubated and sedated. 08/26/20 Patient seen in follow up current remains in the ICU being closely monitored. Repeat chest xray today shows continued diffuse bilateral air space infiltrates with no pneumothoraces visible. Patient continues to have 3 chest tubes and intubated. Prognosis is poor. Code status discussed with the Bette Flores today and she would like him comfortable and made a no code. Consult placed to case management for hospice consult as she would like information about hospice and comfort measures. 08/27/2020 Patient is currently on back on ventilator. Sedated and paralyzed. Patient d oes have chest tubes in place. Chest x-ray showed stable portable chest. Bilateral chest tubes are redemonstrated. Bilateral less than 10% pneumothorax seen bilaterally. Laboratory data showed WBC 28.6, hemoglobin 13.0, platelets 157 Lymphocyte count 0.2 ABG showed pH of 7.19, PCO2 61 and PO2 6390% FiO2 Sodium 136, potassium 5.7 and chloride 108, BUN 64 and creatinine 3.17 Significantly elevated inflammatory markers. Patient is being continued on antibiotics in the form of cefepime and vancomycin. Currently on dexamethasone and completed remdesivir course. Continued on insulin dosing. 09/05/2020 Patient is currently in the MICU sedated and intubated. Patient was having bleeding through the endotracheal tube and OG tube. Anticoagulation is on hold at this time. Patient is currently 80% FiO2 and assist control. Chest x-ray showed no significant pneumothorax seen. Minimal subcutaneous emphysema and mediastinal emphysema leaving the left chest tube. Right chest tube without leaking air. Patient is tolerating tube feeding. Currently on antibiotics in the form of IV cefepime for MSSA pneumonia. Patient underwent hemodialysis today. Laboratory data showed WBC 20.7, hemoglobin 9.0 and sodium 133, BUN 25 and creatinine slight improvement with 5.99 Ferritin level is 1185 LDH 1172 and CRP 46.7 albumin 2.0 Current medications reviewed. Review of systems: Unable to obtain as patient is intubated and sedated. Objective - Vital Signs Vital signs: Vital Signs Temp 99 F 09/05/20 16:00 Pulse 107 H 09/05/20 16:45 Resp 34 H 09/05/20 16:45 BP 111/55 09/05/20 11:23 Pulse Ox 95 09/05/20 16:45 Intake & Output 09/04/20 09/05/20 09/05/20 18:59 06:59 18:59 Intake Total 2540.836 3906.899 1174.730 Output Total 2500 180 2580 Balance -128.244 7991.899 -1405.270 Weight 122.3 kg 124.8 kg Intake: IV 274 349 302 Cefepime 1 gm In Sodium 50 50 50 Chloride 0.9% 50 ml @ 12. 5 mls/hr IVPB Q12HR [facility] Rx#:[id number] Fluconazole in NaCl,Iso- 50 Osm 100 mg In Saline 1 50ml.bag @ 50 mls/hr IVPB DAILY [facility] Rx#:[id number] Normal Saline PRessure 24 39 27 bag sodium chloride @ 10ml hr 200 260 175 Intake, IV Titration 866.602 654.899 416.730 Amount Insulin Regular 100 unit 76.289 106.775 49.995 In Sodium Chloride 0.9% 100 ml @ Per Protocol IV .Q0M [facility] Rx#:[id number] Norepinephrine 32 mg In 6.019 65.362 Sodium Chloride 0.9% 218 ml @ 0.05 MCG/KG/MIN 2. 866 mls/hr IV .Q24H [facility] Rx#:[id number] Norepinephrine 4 mg In 288.976 440.760 Sodium Chloride 0.9% 250 ml @ 0.1 MCG/KG/MIN 38. 862 mls/hr IV .Q6H33M [facility] Rx#:[id number] metroNIDAZOLE-NS PMX 500 200 200 mg In Saline 1 100ml.bag @ 100 mls/hr IVPB Q8HR [facility] Rx#:[id number] propofoL 1,000 mg In 301.337 101.345 101.373 Empty Bag 1 bag @ Titrate IV .Q0M [facility] Rx#: [id number] Tube Feeding 408 442 306 Other 210 90 150 Output: Chest Tube Drainage 0 140 40 Chest Tube Right 0 100 10 Chest Tube Right Upper 0 0 Left Upper Anterior Chest 0 40 30 Urine 0 40 40 Hemodialysis 2500 2500 Other: Voiding Method Indwelling Catheter Indwelling Catheter Indwelling Catheter ABP, PAP, CO, CI - Last Documented Arterial Blood Pressure 130/47 - Exam - Exam GENERAL: The patient is intubated and sedated and appears to be in no acute distress. HEENT: Pupils are round and equally reacting to light. EOMI. No scleral icterus. No conjunctival pallor. Normocephalic, atraumatic. No pharyngeal erythema. No thyromegaly. ET tube noted CARDIOVASCULAR: S1 and S2 present. No murmurs, rubs, or gallops. PULMONARY: Bilateral scattered rhonchi, no wheezing noted diminished air entry bilaterally worse on the right, tachypneic, 2 chest tubes noted on the right side and one on the left ABDOMEN: Soft, nontender, nondistended, normoactive bowel sounds. No palpable organomegaly. MUSCULOSKELETAL: No joint swelling or deformity. EXTREMITIES: No cyanosis, clubbing, or pedal edema. NEUROLOGICAL: Unable to fully assess as patient is intubated and sedated SKIN: No rashes. Note: Because of COVID 19 isolation, some of the history and physical exam findings are indirect and obtained from nursing staff, and other physician examinations to avoid unnecessary contact with the patient. - Labs CBC & Chem 7: 09/06/20 04:15 09/06/20 04:15 Labs: Abnormal Lab Results - Last 24 Hours (Table) 09/04/20 09/04/20 09/04/20 Range/Units 17:17 19:46 22:03 WBC (3.8-10.6) k/uL RBC (4.30-5.90) m/uL Hgb (13.0-17.5) gm/dL Hct (39.0-53.0) % Neutrophils # (1.3-7.7) k/uL Lymphocytes # (1.0-4.8) k/uL Monocytes # (0-1.0) k/uL Basophils # (0-0.2) k/uL ABG pH (7.35-7.45) ABG pCO2 (35-45) mmHg ABG pO2 (83-108) mmHg Sodium (137-145) mmol/L BUN (9-20) mg/dL Creatinine (0.66-1.25) mg/dL Glucose (74-99) mg/dL POC Glucose (mg/dL) 141 H 102 H 128 H (75-99) mg/dL Calcium (8.4-10.2) mg/dL Phosphorus (2.5-4.5) mg/dL Ferritin (22.0-322.0) ng/mL Alkaline Phosphatase (38-126) U/L Lactate Dehydrogenase (313-618) U/L Creatine Kinase (55-170) U/L C-Reactive Protein (<10.0) mg/L Total Protein (6.3-8.2) g/dL Albumin (3.5-5.0) g/dL 09/05/20 09/05/20 09/05/20 Range/Units 00:09 02:06 03:20 WBC 20.7 H (3.8-10.6) k/uL RBC 3.16 L (4.30-5.90) m/uL Hgb 9.0 L (13.0-17.5) gm/dL Hct 27.2 L (39.0-53.0) % Neutrophils # 18.3 H (1.3-7.7) k/uL Lymphocytes # 0.5 L (1.0-4.8) k/uL Monocytes # 1.2 H (0-1.0) k/uL Basophils # 0.3 H (0-0.2) k/uL ABG pH (7.35-7.45) ABG pCO2 (35-45) mmHg ABG pO2 (83-108) mmHg Sodium (137-145) mmol/L BUN (9-20) mg/dL Creatinine (0.66-1.25) mg/dL Glucose (74-99) mg/dL POC Glucose (mg/dL) 152 H 129 H (75-99) mg/dL Calcium (8.4-10.2) mg/dL Phosphorus (2.5-4.5) mg/dL Ferritin (22.0-322.0) ng/mL Alkaline Phosphatase (38-126) U/L Lactate Dehydrogenase (313-618) U/L Creatine Kinase (55-170) U/L C-Reactive Protein (<10.0) mg/L Total Protein (6.3-8.2) g/dL Albumin (3.5-5.0) g/dL 09/05/20 09/05/20 09/05/20 Range/Units 03:20 04:07 04:44 WBC (3.8-10.6) k/uL RBC (4.30-5.90) m/uL Hgb (13.0-17.5) gm/dL Hct (39.0-53.0) % Neutrophils # (1.3-7.7) k/uL Lymphocytes # (1.0-4.8) k/uL Monocytes # (0-1.0) k/uL Basophils # (0-0.2) k/uL ABG pH 7.25 L (7.35-7.45) ABG pCO2 48 H (35-45) mmHg ABG pO2 120 H (83-108) mmHg Sodium 133 L (137-145) mmol/L BUN 75 H (9-20) mg/dL Creatinine 5.11 H (0.66-1.25) mg/dL Glucose 125 H (74-99) mg/dL POC Glucose (mg/dL) 142 H (75-99) mg/dL Calcium 7.1 L (8.4-10.2) mg/dL Phosphorus 7.8 H (2.5-4.5) mg/dL Ferritin 1185.6 H (22.0-322.0) ng/mL Alkaline Phosphatase 173 H (38-126) U/L Lactate Dehydrogenase 1172 H (313-618) U/L Creatine Kinase 443 H (55-170) U/L C-Reactive Protein 46.7 H (<10.0) mg/L Total Protein 4.6 L (6.3-8.2) g/dL Albumin 2.0 L (3.5-5.0) g/dL 09/05/20 09/05/20 09/05/20 Range/Units 05:42 08:19 11:50 WBC (3.8-10.6) k/uL RBC (4.30-5.90) m/uL Hgb (13.0-17.5) gm/dL Hct (39.0-53.0) % Neutrophils # (1.3-7.7) k/uL Lymphocytes # (1.0-4.8) k/uL Monocytes # (0-1.0) k/uL Basophils # (0-0.2) k/uL ABG pH (7.35-7.45) ABG pCO2 (35-45) mmHg ABG pO2 (83-108) mmHg Sodium (137-145) mmol/L BUN (9-20) mg/dL Creatinine (0.66-1.25) mg/dL Glucose (74-99) mg/dL POC Glucose (mg/dL) 124 H 165 H 112 H (75-99) mg/dL Calcium (8.4-10.2) mg/dL Phosphorus (2.5-4.5) mg/dL Ferritin (22.0-322.0) ng/mL Alkaline Phosphatase (38-126) U/L Lactate Dehydrogenase (313-618) U/L Creatine Kinase (55-170) U/L C-Reactive Protein (<10.0) mg/L Total Protein (6.3-8.2) g/dL Albumin (3.5-5.0) g/dL 09/05/20 09/05/20 Range/Units 13:26 15:30 WBC (3.8-10.6) k/uL RBC (4.30-5.90) m/uL Hgb (13.0-17.5) gm/dL Hct (39.0-53.0) % Neutrophils # (1.3-7.7) k/uL Lymphocytes # (1.0-4.8) k/uL Monocytes # (0-1.0) k/uL Basophils # (0-0.2) k/uL ABG pH (7.35-7.45) ABG pCO2 (35-45) mmHg ABG pO2 (83-108) mmHg Sodium (137-145) mmol/L BUN (9-20) mg/dL Creatinine (0.66-1.25) mg/dL Glucose (74-99) mg/dL POC Glucose (mg/dL) 136 H 197 H (75-99) mg/dL Calcium (8.4-10.2) mg/dL Phosphorus (2.5-4.5) mg/dL Ferritin (22.0-322.0) ng/mL Alkaline Phosphatase (38-126) U/L Lactate Dehydrogenase (313-618) U/L Creatine Kinase (55-170) U/L C-Reactive Protein (<10.0) mg/L Total Protein (6.3-8.2) g/dL Albumin (3.5-5.0) g/dL Microbiology - Last 24 Hours (Table) 08/31/20 17:21 Blood Culture - Preliminary Blood No Growth after 96 hours Assessment and Plan Assessment: -Covid 19 infection/pneumonia -Acute hypoxic, hypercapnic respiratory failure requiring mechanical ventilation -Septic shock maintained on Levophed. -confirmed pneumoperitoneum as noted on CT -bilateral lower extremity deep vein thromboses -acute renal failure likely acute tubular necrosis, likely from vancomycin toxicity currently requiring hemodialysis -Acute respiratory arrest with hypoxia -Right side pneumothorax , small stable left-sided pneumothorax. -Type 2 diabetes mellitus, remains on insulin drip -mild hypovolemic hyponatremia -Hypertension: -DVT prophylaxis -GI prophylaxis Plan: Continue current medications and continue to monitor closely. Patient currently in the ICU for close monitoring. Patient is currently intubated and sedated. Maintained on IV antibiotics in the form of Cefepime and Flagyl. Pulmonary and infectious disease also following along with nephrology and surgery. Patient currently undergoing daily hemodialysis. CT of the abdomen confirmed pneumoperitoneum. Heparin has been discontinued as patient is having bleeding noted from the oral cavity. Lovenox will be resumed once no bleeding is noted. hemoglobin is stable at 9.9 this morning. Patient has become hypotensive requiring pressor support and currently on Levophed. Patient continues on insulin drip and will continue at this time. Prognosis is extremely guarded and poor. Will continue to monitor vital signs and labs closely. Further recommendations to follow. Time with Patient: Greater than 30
--- NOTE | 2020-09-06 22:50 | P.PN ---
Subjective Progress Note Date: 09/06/20 Principal diagnosis: Covid 19 infection/pneumonia 53-year-old male is admitted for Covid19 pneumonitis, sepsis. Patient went into hypoxemia last night ended up on 3 L of oxygen.overall feeling little bit better. 08/17/2020 Patient's is pretty status is worse and patient is not doing well in spite of high flow nasal cannula oxygen along with 100% many mask. Patient is being started on Remdesivir. Patient is still complaining of shortness of breath Constitutional: Denied any fatigue denied any fever. Cardio vascular: denied any chest pain, palpitations Gastrointestinal denied any nausea vomiting Pulmonary: As mentioned above Neurologic denied any new focal deficits All inpatient medications were reviewed and appropriate changes in these medications as dictated in the interval history and assessment and plan. 08/18/2020 Patient is seen and evaluated in follow-up and continues to be maintained on high flow oxygen via nasal cannula. Infectious disease is following. Patient continues to have shortness of breath especially with exertion. Discussed with the patient about increasing activity and getting up to the commode and chair. Patient states he feels slightly better today although continues to be extremely dyspneic. Review of systems: Constitutional: No reports of fatigue, fever, or chills Cardiovascular: No reports of chest pain or palpitations Respiratory: Reports shortness of breath with occasional cough GI: No reports of nausea, vomiting, or diarrhea : No reports of dysuria or retention Neurovascular: No reports of weakness or numbness All medications have been reviewed 08/19/2020 Patient is seen and evaluated in follow-up with no real improvement of respiratory status. Patient continues to sat in the low 80s and drops quickly without oxygen. He she is currently maintained on 15 L high flow oxygen along with a nonrebreather over that and was able to obtain 90% oxygen saturation. Patient is currently sitting up at the bedside asking when he can go home. Discussed with the patient at length about respiratory status and his inability to come off oxygen at this time. White blood count elevated at 17.9 from yesterday. BMP within normal limits although blood glucose levels continue to be elevated. Patient is maintained on sliding scale along with long-acting and oral antidiabetic medications. Will continue to monitor as the dexamethasone may be a component of elevated glucose levels. Discussed with the patient about incentive spirometer and instructed to use at least 10 times every hour while awake. Patient currently denies any chest pain or palpitations. Patient is afebrile. No reports of nausea or vomiting patient states he does not have much of an appetite although is tolerating diet. 08/20/2020 Patient is seen in follow-up and continues to be on a nonrebreather and 15 L high flow oxygen and was found to be extremely anxious and hypoxic with saturations in the 70s earlier this morning Repeat chest x-ray done today shows right side pneumothorax along with pneumo mediastinum, subcutaneous emphysema. Pulmonary Dr. López is following and will be placing a chest tube this afternoon. Lovenox dose will be adjusted once chest tube is placed. White blood count elevated at 20.7. D-dimer was found to be 13.05. Review of systems: Constitutional: Anxious, no reports of fever, or chills Cardiovascular: No reports of chest pain or palpitations Respiratory: reports worsening shortness of breath and difficulty breathing GI: No reports of nausea, vomiting, or diarrhea : No reports of dysuria or retention Neurovascular: No reports of weakness or numbness All medications have been reviewed 08/21/2020 Patient is seen and evaluated and follow-up currently remains in the ICU as patient underwent right chest tube placement with Dr. López yesterday due to right pneumothorax with pneumomediastinum and subcutaneous emphysema. Patient is currently sitting up in the chair and on a nonrebreather and high flow oxygen at flow rate of 60% with an FiO2 of 85%. Patient is currently at 89% oxygen satura tion. Patient is also receiving a unit of fresh frozen plasma and is maintained on Lovenox. Blood sugars continue to be elevated and will continue to monitor with long-acting along with sliding scale. White Blood count 20.2. Chest x-ray this morning shows a stable right pneumothorax with right-sided chest tube noted and stable subcutaneous emphysema. Patient instructed to continue with incent sacha spirometer and semi-prone position with the right side up. Patient is somewhat anxious and agitated with remaining hospitalized. No reports of chest pain or palpitations. Denies any nausea or vomiting and is tolerating diet. Patient is currently afebrile. 08/22/2020 Patient has 2 chest tubes on the right side. Patient remains on airvo, there was a persistent leak in the previous chest tube. 08/23/2020 Patient the has bilateral pneumothorax right side has 2 chest tubes attached to wall suction and left-sided pneumothorax is 10-15% which is being monitored, cardiothoracic surgery evaluated the patient. Patient is presently on Bipap. Review of systems: Unable to obtain due to his clinical condition did All inpatient medications were reviewed and appropriate changes in these med ications as dictated in the interval history and assessment and plan. 08/24/2020 Patient currently remains on a BiPAP and has 2 right-sided chest tubes and awaiting for possible pigtail once more stabilized. Patient is currently unable to tolerate travel to [place] for interventional radiology to place the catheter. Chest x-ray today shows a moderate size recurrence of the right pneumothorax along with a small left apical pneumo that appears to be stable along with diffuse patchy infiltrates within bilateral lung ulloa. Pulmonary following closely. Discussed with pulmonary about the possibility of a transfer to a tertiary care center if patient's clinical status continues to deteriorate and unable to obtain the left side pigtail catheter. Remains in the ICU with close monitoring. Patient continues on IV antibiotics in the form of cefepime and vancomycin along with zinc, Lovenox, and dexamethasone. Review of systems: Constitutional: Reports fatigue, anxious, no reports of fever, or chills Cardiovascular: No reports of chest pain or palpitations Respiratory: Reports continued shortness of breath and cough GI: No reports of nausea, vomiting, or diarrhea : No reports of dysuria or retention Neurovascular: Reports weakness, no reports of numbness All medications have been reviewed 08/25/2020 Patient is seen and evaluated in follow-up and continues to be closely monitored in the ICU. Patient had a brief period Of respiratory arrest with attempts to pull out chest tubes after removing the BiPAP and was ultimately intubated. Patient was placed on sedation and appears much more calm at this time. Patient currently awaiting to receive a left side chest tube for the small pneumothorax with pulmonary. Patient continues to have 2 right-sided chest tubes at this time. White blood count elevated Review of systems: Unable to assess as patient is currently intubated and sedated. 08/26/20 Patient seen in follow up current remains in the ICU being closely monitored. Repeat chest xray today shows continued diffuse bilateral air space infiltrates with no pneumothoraces visible. Patient continues to have 3 chest tubes and intubated. Prognosis is poor. Code status discussed with the Bette Flores today and she would like him comfortable and made a no code. Consult placed to case management for hospice consult as she would like information about hospice and comfort measures. 08/27/2020 Patient is currently on back on ventilator. Sedated and paralyzed. Patient d oes have chest tubes in place. Chest x-ray showed stable portable chest. Bilateral chest tubes are redemonstrated. Bilateral less than 10% pneumothorax seen bilaterally. Laboratory data showed WBC 28.6, hemoglobin 13.0, platelets 157 Lymphocyte count 0.2 ABG showed pH of 7.19, PCO2 61 and PO2 6390% FiO2 Sodium 136, potassium 5.7 and chloride 108, BUN 64 and creatinine 3.17 Significantly elevated inflammatory markers. Patient is being continued on antibiotics in the form of cefepime and vancomycin. Currently on dexamethasone and completed remdesivir course. Continued on insulin dosing. 09/05/2020 Patient is currently in the MICU sedated and intubated. Patient was having bleeding through the endotracheal tube and OG tube. Anticoagulation is on hold at this time. Patient is currently 80% FiO2 and assist control. Chest x-ray showed no significant pneumothorax seen. Minimal subcutaneous emphysema and mediastinal emphysema leaving the left chest tube. Right chest tube without leaking air. Patient is tolerating tube feeding. Currently on antibiotics in the form of IV cefepime for MSSA pneumonia. Patient underwent hemodialysis today. 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 Currently on FiO2 60%. Intubated and sedated. Patient underwent hemodialysis yesterday with 2.5 L ultrafiltration. Tolerating tube feeding. Continued on Levophed. Anticoagulation is on hold due to bleeding from the ET tube and Hallman catheter. Hematology has seen the patient and bleeding dialysis felt to be mostly due to enhanced anticoagulant effect of Lovenox and also platelet dysfunction due to renal failure on hemodialysis. Antifactor 10-year has been ordered and is currently pending.. Chest x-ray showed diffuse interstitial infiltrates remain. Airspace disease in the right lower lobe show some improvement. Bilateral chest tubes. Slight improvement in the patient's subcutaneous emphysema as well. Laboratory data showed WBC 20.1 hemoglobin 8.6 Sodium 134, potassium 4.5, BUN 70 and creatinine 4.93 and inflammatory markers are elevated. Patient is being continued on antibiotics in the form of cefepime and Flagyl. Sputum cultures grew Pseudomonas and Kristen albicans. Repeat blood cultures have been negative so far. Current medications reviewed. Review of systems: Unable to obtain as patient is intubated and sedated. Objective - Vital Signs Vital signs: Vital Signs Temp 100.6 F H 09/06/20 16:00 Pulse 93 09/06/20 16:15 Resp 29 H 09/06/20 16:15 BP 134/62 09/06/20 14:45 Pulse Ox 91 L 09/06/20 16:15 Intake & Output 09/05/20 09/06/20 09/06/20 18:59 06:59 18:59 Intake Total 9272.075 6089.105 1244.330 Output Total 2735 60 58 Balance -7280.625 0725.105 1186.330 Weight 124.1 kg 124.1 kg Intake: IV 343 276 250 Cefepime 1 gm In Sodium 50 50 Chloride 0.9% 50 ml @ 12. 5 mls/hr IVPB Q12HR [facility] Rx#:[id number] Fluconazole in NaCl,Iso- 50 Osm 100 mg In Saline 1 50ml.bag @ 50 mls/hr IVPB DAILY [facility] Rx#:[id number] Normal Saline PRessure 33 36 30 bag sodium chloride @ 10ml hr 210 240 170 Intake, IV Titration 548.473 380.105 542.330 Amount Insulin Regular 100 unit 81.052 56.914 61.458 In Sodium Chloride 0.9% 100 ml @ Per Protocol IV .Q0M [facility] Rx#:[id number] Norepinephrine 32 mg In 65.362 121.819 78.824 Sodium Chloride 0.9% 218 ml @ 0.05 MCG/KG/MIN 2. 866 mls/hr IV .Q24H [facility] Rx#:[id number] metroNIDAZOLE-NS PMX 500 200 200 mg In Saline 1 100ml.bag @ 100 mls/hr IVPB Q8HR [facility] Rx#:[id number] propofoL 1,000 mg In 202.059 201.372 202.048 Empty Bag 1 bag @ Titrate IV .Q0M [facility] Rx#: [id number] Tube Feeding 374 408 272 Other 150 90 180 Output: Chest Tube Drainage 40 20 Chest Tube Right 10 0 Chest Tube Right Upper 0 0 Left Upper Anterior Chest 30 20 Urine 195 60 38 Hemodialysis 2500 Other: Voiding Method Indwelling Catheter Indwelling Catheter Indwelling Catheter ABP, PAP, CO, CI - Last Documented Arterial Blood Pressure 124/48 - Exam - Exam GENERAL: The patient is intubated and sedated and appears to be in no acute distress. HEENT: Pupils are round and equally reacting to light. EOMI. No scleral icterus. No conjunctival pallor. Normocephalic, atraumatic. No pharyngeal erythema. No thyromegaly. ET tube noted CARDIOVASCULAR: S1 and S2 present. No murmurs, rubs, or gallops. PULMONARY: Bilateral scattered rhonchi, no wheezing noted diminished air entry bilaterally worse on the right, tachypneic, 2 chest tubes noted on the right side and one on the left ABDOMEN: Soft, nontender, nondistended, normoactive bowel sounds. No palpable organomegaly. MUSCULOSKELETAL: No joint swelling or deformity. EXTREMITIES: No cyanosis, clubbing, or pedal edema. NEUROLOGICAL: Unable to fully assess as patient is intubated and sedated SKIN: No rashes. Note: Because of [place] [id number] isolation, some of the history and physical exam findings are indirect and obtained from nursing staff, and other physician examinations to avoid unnecessary contact with the patient. - Labs CBC & Chem 7: 09/06/20 04:15 09/06/20 04:15 Labs: Abnormal Lab Results - Last 24 Hours (Table) 09/05/20 09/05/20 09/05/20 Range/Units 18:26 20:11 22:42 WBC (3.8-10.6) k/uL RBC (4.30-5.90) m/uL Hgb (13.0-17.5) gm/dL Hct (39.0-53.0) % Neutrophils # (1.3-7.7) k/uL Lymphocytes # (1.0-4.8) k/uL Fibrinogen (200-500) mg/dL ABG pH (7.35-7.45) ABG pCO2 (35-45) mmHg ABG pO2 (83-108) mmHg ABG HCO3 (21-25) mmol/L ABG O2 Saturation (94-97) % Sodium (137-145) mmol/L Carbon Dioxide (22-30) mmol/L BUN (9-20) mg/dL Creatinine (0.66-1.25) mg/dL Glucose (74-99) mg/dL POC Glucose (mg/dL) 152 H 132 H 138 H (75-99) mg/dL Calcium (8.4-10.2) mg/dL Phosphorus (2.5-4.5) mg/dL Ferritin (22.0-322.0) ng/mL Alkaline Phosphatase (38-126) U/L Lactate Dehydrogenase (313-618) U/L Creatine Kinase (55-170) U/L C-Reactive Protein (<10.0) mg/L Total Protein (6.3-8.2) g/dL Albumin (3.5-5.0) g/dL 09/05/20 09/06/20 09/06/20 Range/Units 23:54 03:09 04:15 WBC (3.8-10.6) k/uL RBC (4.30-5.90) m/uL Hgb (13.0-17.5) gm/dL Hct (39.0-53.0) % Neutrophils # (1.3-7.7) k/uL Lymphocytes # (1.0-4.8) k/uL Fibrinogen (200-500) mg/dL ABG pH (7.35-7.45) ABG pCO2 (35-45) mmHg ABG pO2 (83-108) mmHg ABG HCO3 (21-25) mmol/L ABG O2 Saturation (94-97) % Sodium 134 L (137-145) mmol/L Carbon Dioxide 21 L (22-30) mmol/L BUN 70 H (9-20) mg/dL Creatinine 4.93 H (0.66-1.25) mg/dL Glucose 124 H (74-99) mg/dL POC Glucose (mg/dL) 146 H 113 H (75-99) mg/dL Calcium 7.2 L (8.4-10.2) mg/dL Phosphorus 7.6 H (2.5-4.5) mg/dL Ferritin 1171.8 H (22.0-322.0) ng/mL Alkaline Phosphatase 175 H (38-126) U/L Lactate Dehydrogenase 1126 H (313-618) U/L Creatine Kinase 203 H (55-170) U/L C-Reactive Protein 54.9 H (<10.0) mg/L Total Protein 4.7 L (6.3-8.2) g/dL Albumin 2.0 L (3.5-5.0) g/dL 09/06/20 09/06/20 09/06/20 Range/Units 04:15 04:15 05:18 WBC 20.1 H (3.8-10.6) k/uL RBC 3.05 L (4.30-5.90) m/uL Hgb 8.6 L (13.0-17.5) gm/dL Hct 26.6 L (39.0-53.0) % Neutrophils # 18.1 H (1.3-7.7) k/uL Lymphocytes # 0.6 L (1.0-4.8) k/uL Fibrinogen 519 H (200-500) mg/dL ABG pH 7.24 L (7.35-7.45) ABG pCO2 47 H (35-45) mmHg ABG pO2 66 L (83-108) mmHg ABG HCO3 20 L (21-25) mmol/L ABG O2 Saturation 90.1 L (94-97) % Sodium (137-145) mmol/L Carbon Dioxide (22-30) mmol/L BUN (9-20) mg/dL Creatinine (0.66-1.25) mg/dL Glucose (74-99) mg/dL POC Glucose (mg/dL) (75-99) mg/dL Calcium (8.4-10.2) mg/dL Phosphorus (2.5-4.5) mg/dL Ferritin (22.0-322.0) ng/mL Alkaline Phosphatase (38-126) U/L Lactate Dehydrogenase (313-618) U/L Creatine Kinase (55-170) U/L C-Reactive Protein (<10.0) mg/L Total Protein (6.3-8.2) g/dL Albumin (3.5-5.0) g/dL 09/06/20 09/06/20 09/06/20 Range/Units 06:11 08:58 09:31 WBC (3.8-10.6) k/uL RBC (4.30-5.90) m/uL Hgb (13.0-17.5) gm/dL Hct (39.0-53.0) % Neutrophils # (1.3-7.7) k/uL Lymphocytes # (1.0-4.8) k/uL Fibrinogen (200-500) mg/dL ABG pH (7.35-7.45) ABG pCO2 (35-45) mmHg ABG pO2 (83-108) mmHg ABG HCO3 (21-25) mmol/L ABG O2 Saturation (94-97) % Sodium (137-145) mmol/L Carbon Dioxide (22-30) mmol/L BUN (9-20) mg/dL Creatinine (0.66-1.25) mg/dL Glucose (74-99) mg/dL POC Glucose (mg/dL) 162 H 173 H 176 H (75-99) mg/dL Calcium (8.4-10.2) mg/dL Phosphorus (2.5-4.5) mg/dL Ferritin (22.0-322.0) ng/mL Alkaline Phosphatase (38-126) U/L Lactate Dehydrogenase (313-618) U/L Creatine Kinase (55-170) U/L C-Reactive Protein (<10.0) mg/L Total Protein (6.3-8.2) g/dL Albumin (3.5-5.0) g/dL 09/06/20 09/06/20 09/06/20 Range/Units 12:15 14:09 15:50 WBC (3.8-10.6) k/uL RBC (4.30-5.90) m/uL Hgb (13.0-17.5) gm/dL Hct (39.0-53.0) % Neutrophils # (1.3-7.7) k/uL Lymphocytes # (1.0-4.8) k/uL Fibrinogen (200-500) mg/dL ABG pH (7.35-7.45) ABG pCO2 (35-45) mmHg ABG pO2 (83-108) mmHg ABG HCO3 (21-25) mmol/L ABG O2 Saturation (94-97) % Sodium (137-145) mmol/L Carbon Dioxide (22-30) mmol/L BUN (9-20) mg/dL Creatinine (0.66-1.25) mg/dL Glucose (74-99) mg/dL POC Glucose (mg/dL) 135 H 168 H 158 H (75-99) mg/dL Calcium (8.4-10.2) mg/dL Phosphorus (2.5-4.5) mg/dL Ferritin (22.0-322.0) ng/mL Alkaline Phosphatase (38-126) U/L Lactate Dehydrogenase (313-618) U/L Creatine Kinase (55-170) U/L C-Reactive Protein (<10.0) mg/L Total Protein (6.3-8.2) g/dL Albumin (3.5-5.0) g/dL Microbiology - Last 24 Hours (Table) 08/31/20 17:21 Blood Culture - Preliminary Blood No Growth after 120 hours Assessment and Plan Assessment: -Covid 19 infection/pneumonia -Acute hypoxic, hypercapnic respiratory failure requiring mechanical ventilation -Septic shock maintained on Levophed. -confirmed pneumoperitoneum as noted on CT -bilateral lower extremity deep vein thromboses -acute renal failure likely acute tubular necrosis, likely from vancomycin toxicity currently requiring hemodialysis -Acute respiratory arrest with hypoxia -Right side pneumothorax , small stable left-sided pneumothorax. -Type 2 diabetes mellitus, remains on insulin drip -mild hypovolemic hyponatremia -Hypertension: -DVT prophylaxis -GI prophylaxis Plan: Continue current medications and continue to monitor closely. Patient currently in the ICU for close monitoring. Patient is currently intubated and sedated. Maintained on IV antibiotics in the form of Cefepime and Flagyl. Pulmonary and infectious disease also following along with nephrology and surgery. Patient currently undergoing daily hemodialysis. CT of the abdomen confirmed pneumoperitoneum. Heparin has been discontinued as patient is having bleeding noted from the oral cavity. Lovenox will be resumed once no bleeding is noted. hemoglobin is stable at 9.9 this morning. Patient has become hypotensive requiring pressor support and currently on Levophed. Patient continues on insulin drip and will continue at this time. Prognosis is extremely guarded and poor. Will continue to monitor vital signs and labs closely. Further recommendations to follow. Time with Patient: Greater than 30
--- NOTE | 2020-09-06 23:35 | P.PN ---
Subjective Progress Note Date: 09/06/20 (Critical care time 35 minutes) Principal diagnosis: Right spontaneous pneumothorax status post 2 chest tubes Pneumomediastinum Left spontaneous pneumothorax Acute hypoxic respiratory failure Covid 19 pneumonia Type 2 diabetes mellitus Hypertension hypertensive cardiovascular disease Dehydration hypovolemia and hyponatremia Depression 09/06/2020, patient seen eval examined during the rounds he remains medically paralyzed and sedated with propofol drip and Nimbex drip, patient remains on full ventilator support however able to decrease oxygen to 50%, patient is on as sist control rate of 34 PEEP of 12, oxygen 50%, tidal volume 550, he is due for dialysis tomorrow, patient is still have intermittent clots suctioned from the mouth, appears to be old, bilateral stable chest tube chest x-ray from this morning reviewed care leak is present on the right side left-sided no air leak is present, patient remains on IV antibiotics and Decadron also on insulin drip levo fed drip, labs from today reviewed WBC is 20,000, hemoglobin remained stable 8.6, arterial blood gas revealed pH of 7.24 pCO2 [place] pO2 66, sodium 134 potassium 4.5 BUN/creatinine slightly improved 70 and 4.93, his LDH remains over 1100, C-reactive protein 54.9, ferritin also remains over 1100, chest x-ray reviewed stable PICC line NG tube and ET tube, 2 chest tube on the right side remains stable as well as the left side, no obvious significant pneumothorax seen, subcu and mediastinal emphysema continued to improve, patient is only on aspirin will be resumed on heparin drip most likely tomorrow 09/05/2020, patient seen eval examined during the rounds labs reviewed medications reviewed care plan discussed, bleeding through the endotracheal tube OG tube and oral have significantly improve old blood has been seen patient has been evaluated by hematology recommended to stop anticoagulation factor X A has been sent which will take another 3 or 4 days, for anticoagulation consider heparin restarting up in about 1-2 days, hemodynamics remains marginal patient continued to have intermittent episodes of hypertension, they were noted more during dialysis, current dialysis going on appears to be uneventful, patient remains on 80% oxygen with assist control rate of 34, tidal volume of 5 5012 of PEEP, patient remains on propofol Nimbex and insulin drip, the 3 chest tubes are in chest x-ray reviewed no significant pneumothorax seen minimal subcutaneous emphysema and mediastinal emphysema leaving the left chest tube the right-sided chest tube are leaking air, patient remains on tube feeding, patient remains on IV cephapime for the MSSA pneumonia, new double-lumen PICC line has been i nserted, patient also on levo fed to keep systolic blood pressure is stable range, white cell count is 20,000 hemoglobin slowly declining is 9 today, arterial blood gases reviewed pH is 725 with pCO2 48 pO2 120, sodium was 133 potassium is 4.3 BUN/creatinine 75 and 5.11, patient has a mixed respiratory and metabolic acidosis 09/04/2020, patient seen eval examined, labs reviewed medications reviewed care plan discussed with the staff and primary care service as well, patient has a significant drop in volumes on ventilator significant air leak has been noted, ET tube has been changed by anesthesia, volume 7 improved however some desaturation noted requiring increase in oxygen saturation, patient however hemodynamically marginal is now requiring levo fed drip, right-sided chest tube continued to air leak significantly, sided chest tube was stable, noted however basal hip is still in, 09/03/2020, patient seen eval reexamined during the rounds labs reviewed medications reviewed care plan discussed, patient has significant amount of bleeding through the mouth with clumps and clots bright red in addition has been bleeding from the NG tube and ET tube as well, heparin has been stopped, next dose of Lovenox will hold it, repeat CBC is pending hemodynamics are stable, patient is scheduled to get a PICC line, currently patient is on assist control rate of 34 PEEP of 12 tidal volume of 550, 70% oxygen, saturation are 90-92%, the still have significant air leak from the right-sided apical chest tube at the bottom left-sided no significant air leak has been present, patient is getting IV cephapirin for the MSSA in the sputum, IV Diflucan and Flagyl has been admitted for suspicion of bowel perforation however the free air in the abdomen is due to thoracic air mediastinal and pleural escaped into the abdominal cavity, patient has been tolerating tube feed well, he remains medically paralyzed with propofol and Nimbex, white cell count is 18,000 yesterday CBC 10.7 today's labs are not done, PTT was 157, arterial blood gas reviewed pH is 7.2 with pCO2 53 oxygen is 70, patient continued to get hemodialysis per nephrology, 09/02/2020, patient seen eval examined during the rounds labs reviewed medications reviewed, remains sedated on propofol as well as Nimbex, full ventilator support, patient is a 80% oxygen sats are 90%, rate is 34 PEEP is 12, the CAT scan of the lungs consistent with ARDS, patient is getting hemodialysis currently, duplex ultrasound was back positive for bilateral DVT Lovenox increased to 60 mg twice a day, patient continued to have intermittent leak from the right-sided upper chest tube no significant leak is present on bottom 1, no leak has been seen from the left side 1, and cell count remains elevated with stable hemoglobin arterial blood gas shows respiratory acidosis with CO2 55, BUN/creatinine is 107/4.8, prognosis is guarded with likelihood of recovery is poor continue supportive care 09/01/2020, patient seen eval examined care plan discussed with the staff at length, patient remains on 100% oxygen assist control rate of 34 tidal volume of the 500 PEEP of 12, patient had second cycle hemodialysis today 500 mL was removed yesterday 1.5 L was removed, patient was found to have free air in the abdomen by a chest CT, no hollow viscus perforation have been noted, here appears to be thoracic air escaping into the abdominal cavity, patient has minimal pneumothorax on the right side with a stable chest tube in the pleural space draining air right upper chest tube continued to drain area continuously however lower chest tube intermittently, patient has extensive pneumomediastinum by CAT scan, left-sided pneumothorax significantly improved minimal or no air leak has been present on the left chest tube, white cell count is up to 22,000, ABG slightly improved and better pH is 7.21, potassium is 5.5, BUN/creatinine was up to 133 and 6.5 postdialysis labs are pending, patient is resumed back on tube feed post second dialysis sats have improved to 96% will titrate oxygen down as tolerated to keep saturation over 92%, critical care time spent 40 minutes 08/31/2020, patient seen eval examined during the rounds labs reviewed [facility] reviewed care plan discussed with the staff at length, remains medically paralyzed with propofol and Nimbex drip, chest tubes is still significantly leaking on the right side lungs are well expanded though, minimum leak is present at the base, cardiothoracic surgery is have recommended to f ollow it up closely, no active intervention has been recommended, renal function continued to get worse, patient has been getting diuresis with loop diuretics, would recommend to discontinue it patient remains on bicarb drip, along with anticoagulation, when setting remains stable assist control rate of 24 deep of 12 tidal volume 500 with 100% oxygen, saturation is just a 88-90%, continue broad-spectrum antibiotics and supportive care long-term prognosis poor will defer decision about dialysis to the family and renal services 08/30/2020, patient seen eval examined during the rounds medically sedated and paralyzed of propofol and Nimbex, on full ventilator support with assist control rate of 24 EP is 1200% oxygen which has been reduced to 90% now, saturation 91- 92%, bilateral chest tubes are present minimal air leak on the left side, right- sided apical tube still having persistent nearly however distal intermittently, tolerating tube feed well, labs reviewed arterial blood gas reviewed as well along with radiographic findings patient BUN/creatinine continue to go up consistent with acute tubular necrosis likely related to covid 19 sepsis, arterial blood gases revealed pH is 7.18 pCO2 54 pO2 90, patient improved to 5.4, BUN/creatinine up to 132 and 5.86 08/29/2020, patient seen eval examined during the rounds labs reviewed medications reviewed care plan discussed with the staff including RN and respiratory therapy at length, saturation remains borderline however they were 90% in the morning came down to 84% increasing PEEP causes rapid increase in peak air pressure and platue pressure up to 55 and 35, PEEP lowered to 12, patient remains on 100% oxygen with full assist control mode, arterial blood gases reviewed and significant metabolic acidosis appears to be related to acute renal failure, renal services have been consulted, patient appears to have nonoliguric acute renal failure likely acute tubular necrosis, patient remains gently hydrated to feed and given, remains afebrile, white cell count remains on higher side hemoglobin stable, arterial blood gases noted to be to be pH of 7.18 pCO2 53 pO2 70, 1 amp of bicarb along with bicarb drip have been initiated, p otassium running on the higher side of 5.8, inflammatory parameters slightly down of thousand today LDH and C-reactive protein remains elevated, sputum for positive for a MSSA, vancomycin has been discontinued which may be contributing to acute kidney injury, patient remains on the propofol as well as Nimbex drip, patient has 2 chest tubes on the right side and one chest tube on the left side due to pneumomediastinum and bilateral pneumothorax they've been aching is minimal on left and right bottom chest tube significant on apical chest tube however 08/28/2020, patient seen eval examined during the rounds labs reviewed medications reviewed, currently patient is on ventilator support PEEP of 10, 90% oxygen, assist control rate of 30, care blood gases reviewed, chest x-ray reviewed, minimal bilateral apical pneumothorax is present, stable left-sided chest U no air leak is present, right-sided apical tube continued to bubble significant air leak, bottom minimal, patient is medically paralyzed with propofol and Nimbex, laboratory data reviewed discussed at length with the staff 08/27/2020, patient seen eval examined during the rounds sedated and medically paralyzed, right-sided chest tube is still significantly and leak upper tube is present no significantly is seen in the 1 and also left side, labs and arterial blood gases reviewed and ventilator adjusted, chest U was stable on chest x-ray, apical very small pneumothorax, 08/26/2020, patient seen eval examined during the rounds labs reviewed medications reviewed, chest tube continue to gently air, patient intubated, on full ventilator support noted evidence of hypercapnia with increase the ventilation C orders, chest x-ray reviewed trace pneumothorax on the apex cannot be excluded, basal bilateral dense infiltrate with mediastinal emphysema, no significant pneumothorax seen, labs reviewed, critical care time 35 minutes 08/25/2020, patient seen eval examined during the rounds labs reviewed medications reviewed care plan discussed with the staff, patient had a respiratory arrest earlier this morning during which he pulled out his BiPAP machine oxygen saturation dropped down into 20s, he also tried to pull out his chest tube, during that process he was intubated, postintubation chest x-ray shows minimal pneumothorax on the right side left-sided pneumothorax or anterior posterior cannot be excluded, extensive pneumomediastinum is present, patient currently and placed on the propofol at 75 mics was very restless and agitated, tachypneic tachycardic and eventually medically paralyzed with Nimbex drip, respiratory status slightly more stable patient is more calm and now hemodynamics stable, has been getting IV fluids, will need a chest tube on the the left side to avoid tension pneumothorax, keep the 2 chest tube on the right side 1 direct towards the apex appears to be stable however one at the base of the lung is still in, dense bilateral infiltrate are present, white cell count is up to 34,000, arterial blood gas and chest x-ray reviewed consistent with respiratory and metabolic acidosis, with severe hypoxia requiring PEEP with high ventilatory rate 08/24/2020, patient seen eval examined during the rounds labs reviewed medications reviewed sitting upright on the bed, remains on BiPAP with 100% oxygen, saturation 95%, patient desaturated into goes on the right side down and intermittently during supine posture, however do better with left side up, and sitting up as well, chest x-ray from today reviewed pneumothorax recurred on the right side in spite of 2 chest tube aiming towards the apex and the base with significant air leak, small left apical pneumothorax however is stable, patient is awaiting evaluation from thoracic surgery for possible VATS or transfer to tertiary care center, left side and INR will put a small bore pigtail catheter at the apex later on this morning, patient remains afebrile slightly tachycardic tachypneic, inflammatory parameters still up, prognosis is guarded care plan discussed directly and indirectly with primary service, staff, cardiothoracic and IR 08/23/2020, patient seen eval reexamined during the rounds labs reviewed medications reviewed, oxygen saturation remained stable, however patient couldn't tolerate off of BiPAP, he remains on BiPAP. All, chest x-ray reviewed, patient hasn't to right-sided chest tube air leak is present from both, left- sided residual small pneumothorax present along with subcutaneous emphysema and mediastinal emphysema, interventional radiology could not do a chest tube on the left side, they are planning to do it tomorrow, white cell count decreased to 19,000, d-dimer is still elevated inflammatory parameters elevated consistent with cytokine nita 08/22/2020, patient seen eval reexamined significant desaturation was more noted, sats dropped down to 55-70% spontaneously comes right back up though currently on 93% BiPAP, Semiprone with the right side up patient cannot tolerate airvo, desaturated easily remains tachypneic tachycardic hemodynamic status however remains stable, chest x-ray findings reviewed in spite of right-sided chest tube and persistent air leak there is a persistent spontaneous pneumothorax fairly large on the right side and small apical left sided spontaneous pneumothorax noted with pneumomediastinum and bilateral dense infiltrate at the bases, thoracic surgery has been consulted, patient may need an another chest tube on the right side versus VATS and preferably and of the small chest U was on the left side, will defer to expertise of thoracic surgery, labs reviewed medications reviewed care plan discussed at length with the staff 08/21/2020, patient seen eval examined during the rounds sitting upright in chair breathing slightly better oxygen saturation is 87-88%, patient is on high flow oxygen along with the nonrebreather mass, tachypneic tachycardic blood pressure is slightly high, patient has a right-sided chest tube is still leaking air, chest x-ray reviewed bilateral infiltrate is present with residual pneumothorax and subcu emphysema, labs from today reviewed white cell count remains elevated 20,000, renal functions stable, will attempt semi-prone with right side up, we will obtain an transfuse convalescent plasma 08/20/2020, patient seen eval examined during the rounds a labs reviewed medications reviewed this morning patient had problems with agitated anxiety and a prehension, oxygen saturation dropped down into 70s, rapid response was called and stat chest x-ray revealed presence of pneumothorax which is significant on the right side as well they may be a small mediastinal emphysema on the left side as well, patient has been made semi-prone with that oxygen saturation 100% nonrebreather mask improved to 92% patient is more calm, he remains afebrile temperature is 98.3 respiratory rate and mid to high 20s, weight is oxygen saturation 94%, chest x-ray finding reviewed 08/19/2020, patient seen eval examined during the rounds labs reviewed medications reviewed care plan discussed, patient is sitting upright on the bed on 100% nonrebreather mask, saturation remains marginal about 88%, remains afebrile, slightly anxious, advised based he hasn't to be on prone position as much as possible, labs reviewed white cell count is 17,000, patient remains on Remdesivir, Decadron, Lovenox August 18 2020, patient seen eval examined during the rounds is still on 5 L high flow oxygen, denies any chest pain breathing difficulties present, denies any cough or sputum production labs chest x-ray reviewed This is a 59-year-old male who has history of diabetes hypertension hypertensive cardiovascular disease and not feeling well for the last 5-6 days with cough and increased shortness of breath started with a sore throat, patient admitted into the hospital was spiking fever up to 101, oxygen saturation 90%, patient already has been started on REM doesn't wear and Decadron, his initial admit x-ray cystoscopy right midlung field and left lower lid feeding infiltrate patient gradually got worse initially has been on room air oxygen requirement keep on going up to 3 L and subsequently on 5 L high flow oxygen with that oxygen saturation is 93%, critical care time spent 35 minutes Objective - Vital Signs Vital signs: Vital Signs Temp 99.0 F 09/06/20 20:00 Pulse 89 09/06/20 20:30 Resp 34 H 09/06/20 20:30 BP 134/62 09/06/20 14:45 Pulse Ox 88 L 09/06/20 20:30 Intake & Output 09/06/20 09/06/20 09/07/20 06:59 18:59 06:59 Intake Total 3188.713 3193.585 177.361 Output Total 60 58 5 Balance 0205.262 3609.585 172.361 Weight 124.1 kg 124.1 kg Intake: IV 276 296 36 Cefepime 1 gm In Sodium 50 Chloride 0.9% 50 ml @ 12. 5 mls/hr IVPB Q12HR [facility] Rx#:[id number] Normal Saline PRessure 36 36 6 bag sodium chloride @ 10ml hr 240 210 30 Intake, IV Titration 380.105 686.585 43.361 Amount Insulin Regular 100 unit 56.914 105.713 22.893 In Sodium Chloride 0.9% 100 ml @ Per Protocol IV .Q0M MARJAN Rx#:[id number] Norepinephrine 32 mg In 121.819 78.824 20.468 Sodium Chloride 0.9% 218 ml @ 0.05 MCG/KG/MIN 2. 866 mls/hr IV .Q24H MARJAN Rx#:[id number] metroNIDAZOLE-NS PMX 500 200 mg In Saline 1 100ml.bag @ 100 mls/hr IVPB Q8HR MARJAN Rx#:[id number] propofoL 1,000 mg In 201.372 302.048 Empty Bag 1 bag @ Titrate IV .Q0M MARJAN Rx#: [id number] Tube Feeding 408 408 68 Other 90 210 30 Output: Chest Tube Drainage 20 Chest Tube Right 0 Chest Tube Right Upper 0 Left Upper Anterior Chest 20 Urine 60 38 5 Other: Voiding Method Indwelling Catheter Indwelling Catheter ABP, PAP, CO, CI - Last Documented Arterial Blood Pressure 100/51 - Exam - Constitutional General appearance: Intubated medically paralyzed on full ventilator support - EENT Eyes: EOMI, PERRLA Ears: bilateral: normal - Neck Neck: normal ROM Carotids: bilateral: upstroke normal Thyroid: bilateral: normal size - Respiratory Respiratory: bilateral: diminished - Cardiovascular Rhythm: regular Heart sounds: normal: S1, S2 - Gastrointestinal General gastrointestinal: normal bowel sounds - Neurologic Neurologic: CNII-XII intact - Musculoskeletal Musculoskeletal: gait normal, generalized weakness, strength equal bilaterally - Psychiatric Psychiatric: Appears, now post medical paralysis - Labs CBC & Chem 7: 09/06/20 04:15 09/06/20 04:15 Labs: Abnormal Lab Results - Last 24 Hours (Table) 09/05/20 09/06/20 09/06/20 Range/Units 23:54 03:09 04:15 WBC (3.8-10.6) k/uL RBC (4.30-5.90) m/uL Hgb (13.0-17.5) gm/dL Hct (39.0-53.0) % Neutrophils # (1.3-7.7) k/uL Lymphocytes # (1.0-4.8) k/uL Fibrinogen (200-500) mg/dL ABG pH (7.35-7.45) ABG pCO2 (35-45) mmHg ABG pO2 (83-108) mmHg ABG HCO3 (21-25) mmol/L ABG O2 Saturation (94-97) % Sodium 134 L (137-145) mmol/L Carbon Dioxide 21 L (22-30) mmol/L BUN 70 H (9-20) mg/dL Creatinine 4.93 H (0.66-1.25) mg/dL Glucose 124 H (74-99) mg/dL POC Glucose (mg/dL) 146 H 113 H (75-99) mg/dL Calcium 7.2 L (8.4-10.2) mg/dL Phosphorus 7.6 H (2.5-4.5) mg/dL Ferritin 1171.8 H (22.0-322.0) ng/mL Alkaline Phosphatase 175 H (38-126) U/L Lactate Dehydrogenase 1126 H (313-618) U/L Creatine Kinase 203 H (55-170) U/L C-Reactive Protein 54.9 H (<10.0) mg/L Total Protein 4.7 L (6.3-8.2) g/dL Albumin 2.0 L (3.5-5.0) g/dL 09/06/20 09/06/20 09/06/20 Range/Units 04:15 04:15 05:18 WBC 20.1 H (3.8-10.6) k/uL RBC 3.05 L (4.30-5.90) m/uL Hgb 8.6 L (13.0-17.5) gm/dL Hct 26.6 L (39.0-53.0) % Neutrophils # 18.1 H (1.3-7.7) k/uL Lymphocytes # 0.6 L (1.0-4.8) k/uL Fibrinogen 519 H (200-500) mg/dL ABG pH 7.24 L (7.35-7.45) ABG pCO2 47 H (35-45) mmHg ABG pO2 66 L (83-108) mmHg ABG HCO3 20 L (21-25) mmol/L ABG O2 Saturation 90.1 L (94-97) % Sodium (137-145) mmol/L Carbon Dioxide (22-30) mmol/L BUN (9-20) mg/dL Creatinine (0.66-1.25) mg/dL Glucose (74-99) mg/dL POC Glucose (mg/dL) (75-99) mg/dL Calcium (8.4-10.2) mg/dL Phosphorus (2.5-4.5) mg/dL Ferritin (22.0-322.0) ng/mL Alkaline Phosphatase (38-126) U/L Lactate Dehydrogenase (313-618) U/L Creatine Kinase (55-170) U/L C-Reactive Protein (<10.0) mg/L Total Protein (6.3-8.2) g/dL Albumin (3.5-5.0) g/dL 09/06/20 09/06/20 09/06/20 Range/Units 06:11 08:58 09:31 WBC (3.8-10.6) k/uL RBC (4.30-5.90) m/uL Hgb (13.0-17.5) gm/dL Hct (39.0-53.0) % Neutrophils # (1.3-7.7) k/uL Lymphocytes # (1.0-4.8) k/uL Fibrinogen (200-500) mg/dL ABG pH (7.35-7.45) ABG pCO2 (35-45) mmHg ABG pO2 (83-108) mmHg ABG HCO3 (21-25) mmol/L ABG O2 Saturation (94-97) % Sodium (137-145) mmol/L Carbon Dioxide (22-30) mmol/L BUN (9-20) mg/dL Creatinine (0.66-1.25) mg/dL Glucose (74-99) mg/dL POC Glucose (mg/dL) 162 H 173 H 176 H (75-99) mg/dL Calcium (8.4-10.2) mg/dL Phosphorus (2.5-4.5) mg/dL Ferritin (22.0-322.0) ng/mL Alkaline Phosphatase (38-126) U/L Lactate Dehydrogenase (313-618) U/L Creatine Kinase (55-170) U/L C-Reactive Protein (<10.0) mg/L Total Protein (6.3-8.2) g/dL Albumin (3.5-5.0) g/dL 09/06/20 09/06/20 09/06/20 Range/Units 12:15 14:09 15:50 WBC (3.8-10.6) k/uL RBC (4.30-5.90) m/uL Hgb (13.0-17.5) gm/dL Hct (39.0-53.0) % Neutrophils # (1.3-7.7) k/uL Lymphocytes # (1.0-4.8) k/uL Fibrinogen (200-500) mg/dL ABG pH (7.35-7.45) ABG pCO2 (35-45) mmHg ABG pO2 (83-108) mmHg ABG HCO3 (21-25) mmol/L ABG O2 Saturation (94-97) % Sodium (137-145) mmol/L Carbon Dioxide (22-30) mmol/L BUN (9-20) mg/dL Creatinine (0.66-1.25) mg/dL Glucose (74-99) mg/dL POC Glucose (mg/dL) 135 H 168 H 158 H (75-99) mg/dL Calcium (8.4-10.2) mg/dL Phosphorus (2.5-4.5) mg/dL Ferritin (22.0-322.0) ng/mL Alkaline Phosphatase (38-126) U/L Lactate Dehydrogenase (313-618) U/L Creatine Kinase (55-170) U/L C-Reactive Protein (<10.0) mg/L Total Protein (6.3-8.2) g/dL Albumin (3.5-5.0) g/dL 09/06/20 09/06/20 09/06/20 Range/Units 18:04 20:17 21:50 WBC (3.8-10.6) k/uL RBC (4.30-5.90) m/uL Hgb (13.0-17.5) gm/dL Hct (39.0-53.0) % Neutrophils # (1.3-7.7) k/uL Lymphocytes # (1.0-4.8) k/uL Fibrinogen (200-500) mg/dL ABG pH (7.35-7.45) ABG pCO2 (35-45) mmHg ABG pO2 (83-108) mmHg ABG HCO3 (21-25) mmol/L ABG O2 Saturation (94-97) % Sodium (137-145) mmol/L Carbon Dioxide (22-30) mmol/L BUN (9-20) mg/dL Creatinine (0.66-1.25) mg/dL Glucose (74-99) mg/dL POC Glucose (mg/dL) 148 H 121 H 129 H (75-99) mg/dL Calcium (8.4-10.2) mg/dL Phosphorus (2.5-4.5) mg/dL Ferritin (22.0-322.0) ng/mL Alkaline Phosphatase (38-126) U/L Lactate Dehydrogenase (313-618) U/L Creatine Kinase (55-170) U/L C-Reactive Protein (<10.0) mg/L Total Protein (6.3-8.2) g/dL Albumin (3.5-5.0) g/dL Microbiology - Last 24 Hours (Table) 08/31/20 17:21 Blood Culture - Final Blood No Growth after 144 hours Assessment and Plan Assessment: Multiorgan failure including renal respiratory hematopoietic and cardiovascular Pseudomonas pneumonia Acute renal failure due to acute tubular necrosis related to Covid 19 pneumonia Mediastinal and bilateral pneumothorax Acute hypoxic and hypercapnic respiratory failure Status post respiratory arrest patient intubated on full ventilator support lung protective strategy MSSA pneumonia Bilateral DVT Acute kidney injury likely related to acute tubular necrosis as well as v ancomycin associated renal damage on daily dialysis Free air in the abdomen due to mediastinal emphysema and pneumothorax Acute hypoxic respiratory failure Covid 19 pneumonia and ARDS related to that Type 2 diabetes mellitus Hypertension hypertensive cardiovascular disease Dehydration hypovolemia and hyponatremia Depression Overall prognosis is very poor Plan: Ventilator support adjustment as needed, continue titrated oxygen down Heparin drip can be started tomorrow Anticoagulation has been stopped per recommendation of hematology awaiting factor X A levels Maintain bilateral chest tube Hemo-dialysis is in progress planned for tomorrow Cephapirin for MSSA and Pseudomonas pneumonia Continue to follow sugars closely, continue insulin drip Vasopressors as needed Medical paralysis Status post Convalescent plasma Continue Decadron and status post IV Remdesivir for 5 days respectively Further plan of care as per clinical response of the patient, overall prognosis is guarded with likelihood of recovery is poor Multiorgan failure
[2020-09-06 23:41] LABS: Glucose,Whole Blood 144 mg/dL (75-99)
[2020-09-07] MEDS: INSULIN REGULAR 100 UNIT in SODIUM CHLORIDE 0.9% 100 ML IV SCH ×2 (00:02→18:34)
[2020-09-07 02:03] LABS: Glucose,Whole Blood 133 mg/dL (75-99)
[2020-09-07 03:38] LABS: Glucose,Whole Blood 146 mg/dL (75-99)
[2020-09-07 04:28] LABS: HCT 23.8 % (39.0-53.0); MCH 29.3 pg (25.0-35.0); MCHC 33.4 g/dL (31.0-37.0); MCV 87.6 fL (80.0-100.0); Mean Platelet Volume 8.5; Platelet Count 200 k/uL (150-450); Poikilocytosis Slight; RBC 2.72 m/uL (4.30-5.90); RDW 15.5 % (11.5-15.5); WBC 19.9 k/uL (3.8-10.6)
[2020-09-07 04:43] LABS: Calcium 7.1 mg/dL (8.4-10.2); Potassium 4.5 mmol/L (3.5-5.1)
[2020-09-07 04:54] LABS: Glucose,Whole Blood 146 mg/dL (75-99)
[2020-09-07 05:07] LABS: ABG Base Excess -9.5 mmol/L; ABG HCO3 18 mmol/L (21-25); ABG Oxygen Saturation 95.7 % (94-97); ABG PCO2 45 mmHg (35-45); ABG PH 7.22 (7.35-7.45); ABG PO2 85 mmHg (83-108); ABG TCO2 20 mmol/L (19-24)
[2020-09-07 05:45] LABS: Allen Test Performed? no
[2020-09-07] MEDS: NOREPINEPHRINE 32 MG in SODIUM CHLORIDE 0.9% 218 ML IV SCH (05:53)
[2020-09-07 06:01] LABS: Glucose,Whole Blood 137 mg/dL (75-99)
--- NOTE | 2020-09-07 07:06 | XR ---
EXAMINATION TYPE: XR chest 1V portable DATE OF EXAM: 09/07/2020 CLINICAL HISTORY: Difficulty breathing progress study. TECHNIQUE: Single AP portable semiupright view of the chest is obtained. COMPARISON: Chest x-ray from one day earlier and older studies. FINDINGS: Persistent 2 right-sided chest tubes and single coiled left-sided chest tube. One right-si ded chest tube has side near rib margin on current study stable from most recent.. Stable endotrachea l and orogastric tubes. Subcutaneous air right greater than left is redemonstrated. Stable right-geni ed PICC line. Pneumomediastinum remains present over left heart border. Cardiac silhouette size stable and within n ormal limits with atherosclerotic change aortic knob. Persistent low lung volumes with bilateral incr eased opacities greatest in the bases . Prominent multilevel spurring in the mid to lower thoracic sp ine. No pneumothorax identified on current study. IMPRESSION: Low lung volumes with persistent bilateral diffuse edema and/or infiltrates radius in the bases. Bilateral chest tubes without pneumothorax currently seen. No significant change from most re cent x-ray.
[2020-09-07 08:28] LABS: Glucose,Whole Blood 170 mg/dL (75-99)
[2020-09-07] MEDS: CEFEPIME 1 GM in SODIUM CHLORIDE 0.9% 50 ML IVPB SCH ×2 (09:42→20:14)
[2020-09-07] MEDS: CHOLECALCIFEROL 1,000 UNIT TAB PO SCH (09:43)
[2020-09-07] MEDS: metroNIDAZOLE-NS PMX 500 MG in SALINE 1 100ML.BAG IVPB SCH ×3 (09:43→23:32)
[2020-09-07] MEDS: SODIUM BICARBONATE TAB 650 MG TAB PO SCH ×2 (09:43→20:14)
[2020-09-07] MEDS: CALCIUM ACETATE 667 MG TAB PO SCH ×3 (09:43→17:43)
[2020-09-07] MEDS: CHLORHEXIDINE GLUCONATE 15 ML CUP MUCOUS MEM SCH ×2 (09:43→20:15)
[2020-09-07] MEDS: ASCORBIC ACID 500 MG TAB PO SCH (09:43)
[2020-09-07] MEDS: FAMOTIDINE 20 MG/2 ML VIAL IV SCH (09:44)
[2020-09-07] MEDS: ZINC SULFATE 220 MG CAP PO SCH (09:46)
[2020-09-07] MEDS: DEXAMETHASONE SOD PHOSPHATE 10 MG/ML 1 ML VIAL IV SCH (09:46)
[2020-09-07] MEDS: CISATRACURIUM 200 MG in SODIUM CHLORIDE 0.9% 180 ML IV SCH (09:46)
[2020-09-07 11:03] LABS: Glucose,Whole Blood 177 mg/dL (75-99)
[2020-09-07 12:04] LABS: Glucose,Whole Blood 172 mg/dL (75-99)
--- NOTE | 2020-09-07 12:29 | P.PN ---
Subjective Progress Note Date: 09/07/20 CHIEF COMPLAINT: Free air noted on CT of chest HISTORY OF PRESENT ILLNESS: Patient is being followed for the pneumoperitoneum which is due to patient's pneumothorax. Patient remains intubated, sedated and paralyzed in ICU. He still requiring Levophed. Patient did have a temp of 100.6 yesterday afternoon. WBC 19.9 Hgb 8.0 PHYSICAL EXAM: VITAL SIGNS: Reviewed. GENERAL: Well-developed in no acute distress. HEENT: No sclera icterus. Extraocular movements grossly intact. Moist buccal mucosa. Head is atraumatic, normocephalic. ABDOMEN: Soft. Nondistended. Nontender. NEUROLOGIC: Intubated and sedated ASSESSMENT: 1. Pneumoperitoneum likely due to pneumothorax 2. Covid 19 infection 3. Bilateral pneumothoraces status post bilateral chest tube placement 4. Acute kidney injury secondary to ATN and vancomycin toxicity. Patient has been started on hemodialysis during this admission 5. Acute hypoxic and hypercapnic respiratory failure 6. Bilateral lower extremity DVT PLAN: -Continue supportive care -No surgical intervention planned Physician Bead Wire Insulator note has been reviewed by physician. Signing provider agrees with the documented findings, assessment, and plan of care. Objective - Vital Signs Vital signs: Vital Signs Temp 98.6 F 09/07/20 04:00 Pulse 80 09/07/20 07:00 Resp 52 H 09/07/20 07:00 BP 134/62 09/06/20 14:45 Pulse Ox 94 L 09/07/20 07:00 Intake & Output 09/06/20 09/07/20 09/07/20 18:59 06:59 18:59 Intake Total 3535.880 3626.933 137.099 Output Total 58 80 0 Balance 7085.365 1798.933 137.099 Weight 124.1 kg 124.5 kg Intake: IV 296 266 13 Cefepime 1 gm In Sodium 50 Chloride 0.9% 50 ml @ 12. 5 mls/hr IVPB Q12HR [facility] Rx#:[id number] Normal Saline PRessure 36 36 3 bag metroNIDAZOLE-NS PMX 500 100 mg In Saline 1 100ml.bag @ 100 mls/hr IVPB Q8HR [facility] Rx#:[id number] sodium chloride @ 10ml hr 210 130 10 Intake, IV Titration 686.585 544.933 90.099 Amount Insulin Regular 100 unit 105.713 76.541 0 In Sodium Chloride 0.9% 100 ml @ Per Protocol IV .Q0M [facility] Rx#:[id number] Norepinephrine 32 mg In 78.824 68.392 Sodium Chloride 0.9% 218 ml @ 0.05 MCG/KG/MIN 2. 866 mls/hr IV .Q24H [facility] Rx#:[id number] metroNIDAZOLE-NS PMX 500 200 mg In Saline 1 100ml.bag @ 100 mls/hr IVPB Q8HR [facility] Rx#:[id number] propofoL 1,000 mg In 302.048 400 90.099 Empty Bag 1 bag @ Titrate IV .Q0M [facility] Rx#: [id number] Tube Feeding 408 408 34 Other 210 90 Output: Chest Tube Drainage 20 30 Chest Tube Right 0 0 Chest Tube Right Upper 0 0 Left Upper Anterior Chest 20 30 Urine 38 50 0 Other: Voiding Method Indwelling Catheter Indwelling Catheter ABP, PAP, CO, CI - Last Documented Arterial Blood Pressure 134/49 - Labs CBC & Chem 7: 09/07/20 04:10 09/07/20 04:10 Labs: Abnormal Lab Results - Last 24 Hours (Table) 09/06/20 09/06/20 09/06/20 Range/Units 14:09 15:50 18:04 WBC (3.8-10.6) k/uL RBC (4.30-5.90) m/uL Hgb (13.0-17.5) gm/dL Hct (39.0-53.0) % ABG pH (7.35-7.45) ABG HCO3 (21-25) mmol/L Sodium (137-145) mmol/L Carbon Dioxide (22-30) mmol/L BUN (9-20) mg/dL Creatinine (0.66-1.25) mg/dL Glucose (74-99) mg/dL POC Glucose (mg/dL) 168 H 158 H 148 H (75-99) mg/dL Calcium (8.4-10.2) mg/dL 09/06/20 09/06/20 09/06/20 Range/Units 20:17 21:50 23:40 WBC (3.8-10.6) k/uL RBC (4.30-5.90) m/uL Hgb (13.0-17.5) gm/dL Hct (39.0-53.0) % ABG pH (7.35-7.45) ABG HCO3 (21-25) mmol/L Sodium (137-145) mmol/L Carbon Dioxide (22-30) mmol/L BUN (9-20) mg/dL Creatinine (0.66-1.25) mg/dL Glucose (74-99) mg/dL POC Glucose (mg/dL) 121 H 129 H 144 H (75-99) mg/dL Calcium (8.4-10.2) mg/dL 09/07/20 09/07/20 09/07/20 Range/Units 02:02 03:26 04:10 WBC 19.9 H (3.8-10.6) k/uL RBC 2.72 L (4.30-5.90) m/uL Hgb 8.0 L (13.0-17.5) gm/dL Hct 23.8 L (39.0-53.0) % ABG pH (7.35-7.45) ABG HCO3 (21-25) mmol/L Sodium (137-145) mmol/L Carbon Dioxide (22-30) mmol/L BUN (9-20) mg/dL Creatinine (0.66-1.25) mg/dL Glucose (74-99) mg/dL POC Glucose (mg/dL) 133 H 146 H (75-99) mg/dL Calcium (8.4-10.2) mg/dL 09/07/20 09/07/20 09/07/20 Range/Units 04:10 04:51 05:30 WBC (3.8-10.6) k/uL RBC (4.30-5.90) m/uL Hgb (13.0-17.5) gm/dL Hct (39.0-53.0) % ABG pH 7.22 L (7.35-7.45) ABG HCO3 18 L (21-25) mmol/L Sodium 134 L (137-145) mmol/L Carbon Dioxide 20 L (22-30) mmol/L BUN 89 H (9-20) mg/dL Creatinine 6.37 H (0.66-1.25) mg/dL Glucose 139 H (74-99) mg/dL POC Glucose (mg/dL) 146 H (75-99) mg/dL Calcium 7.1 L (8.4-10.2) mg/dL 09/07/20 09/07/20 09/07/20 Range/Units 06:00 08:25 11:01 WBC (3.8-10.6) k/uL RBC (4.30-5.90) m/uL Hgb (13.0-17.5) gm/dL Hct (39.0-53.0) % ABG pH (7.35-7.45) ABG HCO3 (21-25) mmol/L Sodium (137-145) mmol/L Carbon Dioxide (22-30) mmol/L BUN (9-20) mg/dL Creatinine (0.66-1.25) mg/dL Glucose (74-99) mg/dL POC Glucose (mg/dL) 137 H 170 H 177 H (75-99) mg/dL Calcium (8.4-10.2) mg/dL 09/07/20 Range/Units 12:03 WBC (3.8-10.6) k/uL RBC (4.30-5.90) m/uL Hgb (13.0-17.5) gm/dL Hct (39.0-53.0) % ABG pH (7.35-7.45) ABG HCO3 (21-25) mmol/L Sodium (137-145) mmol/L Carbon Dioxide (22-30) mmol/L BUN (9-20) mg/dL Creatinine (0.66-1.25) mg/dL Glucose (74-99) mg/dL POC Glucose (mg/dL) 172 H (75-99) mg/dL Calcium (8.4-10.2) mg/dL Microbiology - Last 24 Hours (Table) 08/31/20 17:21 Blood Culture - Final Blood No Growth after 144 hours
[2020-09-07 13:42] LABS: Glucose,Whole Blood 172 mg/dL (75-99)
--- NOTE | 2020-09-07 15:26 | PN ---
PROGRESS NOTE Patient is seen for followup for acute kidney injury. Currently he is hemodialysis- dependent. Patient has underlying COVID-19 pneumonia and sepsis. He is maintained on the vent. FiO2 is at 60. Patient remains on a small dose of Levophed at about 10 mcg. He continues to have loose stools which are dark-colored. Urine output remains poor. The patient is currently hemodialysis-dependent. He is scheduled for hemodialysis today. On examination, blood pressure this morning was 123/45, heart rate of 75 per minute. Patient is afebrile. Examination of lower extremities shows edema 1+ bilaterally. Abdomen is soft, nontender. Lungs and heart sounds are not heard. INFORMATION ASSURANCE exam cannot be performed, as patient is sedated. Labs show sodium 134, potassium 4.5, chloride 105. CO2 is 20, BUN 89, serum creatinine 6.37, hemoglobin 8.0 g/dL. ASSESSMENT: 1. Acute kidney injury, oliguric, acute tubular necrosis, currently hemodialysis- dependent, maintained on daily dialysis. We will plan for a treatment again tomorrow. 2. Acute hypoxic respiratory failure associated with underlying COVID-19 infection and pneumonia. 3. Hyperkalemia associated with acute kidney injury and BUDDY inhibitors, improved post dialysis. 4. Pneumothorax, status post bilateral chest tube placement. 5. Hyperphosphatemia associated with acute renal failure, maintained on PhosLo. 6. Metabolic acidosis associated with renal failure. Expect further improvement with ongoing dialysis. I will adjust the bicarb bath on hemodialysis and hopefully we can discontinue the sodium bicarb. 7. Anemia with dark-colored stools. No active bleeding noted. I do not see a stool for occult blood. PLAN: Repeat hemodialysis in a.m. Adjust the bicarb bath on dialysis; possibly discontinue sodium bicarb, depending on labs. Continue with PhosLo. MMODL / IJN: [id number] /
--- NOTE | 2020-09-07 15:26 | P.PN ---
Subjective Progress Note Date: 09/07/20 (Critical care time 35 minutes) Principal diagnosis: Right spontaneous pneumothorax status post 2 chest tubes Pneumomediastinum Left spontaneous pneumothorax Acute hypoxic respiratory failure Covid 19 pneumonia Type 2 diabetes mellitus Hypertension hypertensive cardiovascular disease Dehydration hypovolemia and hyponatremia Depression 09/07/2020, patient seen eval examined during the round FiO2 has been escalated to 60% patient does have occasional cough leak with intermittent drop in volumes, overall ventilator setting remains stable remains on assist control rate of 34 tidal volume 550, PEEP of 12 with an FiO2 of 60%, saturation remains 88-90%, patient likely will need the ET tube exchange, undergoing hemodialysis being planned for removal of 2.5 L, patient remains on the propofol drip and Nimbex has been discontinued, also on levo fed and insulin drip, hemodynamic status stable with a small amount of levo fed, chest x-ray reviewed, ET tube and OG tube as well as multiple chest tube was stable, no significant pneumothorax seen, the subcu emphysema and mediastinal emphysema remains unchanged, patient remains on broad-spectrum antibiotics for MSSA and Pseudomonas pneumonia 09/06/2020, patient seen eval examined during the rounds he remains medically p aralyzed and sedated with propofol drip and Nimbex drip, patient remains on full ventilator support however able to decrease oxygen to 50%, patient is on assist control rate of 34 PEEP of 12, oxygen 50%, tidal volume 550, he is due for dialysis tomorrow, patient is still have intermittent clots suctioned from the mouth, appears to be old, bilateral stable chest tube chest x-ray from this morning reviewed care leak is present on the right side left-sided no air leak is present, patient remains on IV antibiotics and Decadron also on insulin drip levo fed drip, labs from today reviewed WBC is 20,000, hemoglobin remained stable 8.6, arterial blood gas revealed pH of 7.24 pCO2 [place] pO2 66, sodium 134 potassium 4.5 BUN/creatinine slightly improved 70 and 4.93, his LDH remains over 1100, C-reactive protein 54.9, ferritin also remains over 1100, chest x-ray reviewed stable PICC line NG tube and ET tube, 2 chest tube on the right side remains stable as well as the left side, no obvious significant pneumothorax seen, subcu and mediastinal emphysema continued to improve, patient is only on a spirin will be resumed on heparin drip most likely tomorrow 09/05/2020, patient seen eval examined during the rounds labs reviewed medications reviewed care plan discussed, bleeding through the endotracheal tube OG tube and oral have significantly improve old blood has been seen patient has been evaluated by hematology recommended to stop anticoagulation factor X A has been sent which will take another 3 or 4 days, for anticoagulation consider heparin restarting up in about 1-2 days, hemodynamics remains marginal patient continued to have intermittent episodes of hypertension, they were noted more during dialysis, current dialysis going on appears to be uneventful, patient remains on 80% oxygen with assist control rate of 34, tidal volume of 5 5012 of PEEP, patient remains on propofol Nimbex and insulin drip, the 3 chest tubes are in chest x-ray reviewed no significant pneumothorax seen minimal subcutaneous emphysema and mediastinal emphysema leaving the left chest tube the right-sided chest tube are leaking air, patient remains on tube feeding, patient remains on IV cephapime for the MSSA pneumonia, new double-lumen PICC line has been inserted, patient also on levo fed to keep systolic blood pressure is stable range, white cell count is 20,000 hemoglobin slowly declining is 9 today, arterial blood gases reviewed pH is 725 with pCO2 48 pO2 120, sodium was 133 potassium is 4.3 BUN/creatinine 75 and 5.11, patient has a mixed respiratory and metabolic acidosis 09/04/2020, patient seen eval examined, labs reviewed medications reviewed care plan discussed with the staff and primary care service as well, patient has a significant drop in volumes on ventilator significant air leak has been noted, ET tube has been changed by anesthesia, volume 7 improved however some desatur ation noted requiring increase in oxygen saturation, patient however hemodynamically marginal is now requiring levo fed drip, right-sided chest tube continued to air leak significantly, sided chest tube was stable, noted however basal hip is still in, 09/03/2020, patient seen eval reexamined during the rounds labs reviewed medications reviewed care plan discussed, patient has significant amount of bleeding through the mouth with clumps and clots bright red in addition has been bleeding from the NG tube and ET tube as well, heparin has been stopped, next dose of Lovenox will hold it, repeat CBC is pending hemodynamics are stable, patient is scheduled to get a PICC line, currently patient is on assist control rate of 34 PEEP of 12 tidal volume of 550, 70% oxygen, saturation are 90-92%, the still have significant air leak from the right-sided apical chest tube at the bottom left-sided no significant air leak has been present, patient is getting IV cephapirin for the MSSA in the sputum, IV Diflucan and Flagyl has been admitted for suspicion of bowel perforation however the free air in the abdomen is due to thoracic air mediastinal and pleural escaped into the abdominal cavity, patient has been tolerating tube feed well, he remains medically paralyzed with propofol and Nimbex, white cell count is 18,000 yesterday CBC 10.7 today's labs are not done, PTT was 157, arterial blood gas r eviewed pH is 7.2 with pCO2 53 oxygen is 70, patient continued to get hemodialysis per nephrology, 09/02/2020, patient seen eval examined during the rounds labs reviewed medications reviewed, remains sedated on propofol as well as Nimbex, full ventilator support, patient is a 80% oxygen sats are 90%, rate is 34 PEEP is 12, the CAT scan of the lungs consistent with ARDS, patient is getting hemodialysis currently, duplex ultrasound was back positive for bilateral DVT Lovenox increased to 60 mg twice a day, patient continued to have intermittent leak from the right-sided upper chest tube no significant leak is present on bottom 1, no leak has been seen from the left side 1, and cell count remains elevated with stable hemoglobin arterial blood gas shows respiratory acidosis with CO2 55, BUN/creatinine is 107/4.8, prognosis is guarded with likelihood of recovery is poor continue supportive care 09/01/2020, patient seen eval examined care plan discussed with the staff at length, patient remains on 100% oxygen assist control rate of 34 tidal volume of the 500 PEEP of 12, patient had second cycle hemodialysis today 500 mL was removed yesterday 1.5 L was removed, patient was found to have free air in the abdomen by a chest CT, no hollow viscus perforation have been noted, here appears to be thoracic air escaping into the abdominal cavity, patient has minimal pneumothorax on the right side with a stable chest tube in the pleural space draining air right upper chest tube continued to drain area continuously however lower chest tube intermittently, patient has extensive pneumomediastinum by CAT scan, left-sided pneumothorax significantly improved minimal or no air leak has been present on the left chest tube, white cell count is up to 22,000, ABG slightly improved and better pH is 7.21, potassium is 5.5, BUN/creatinine was up to 133 and 6.5 postdialysis labs are pending, patient is resumed back on tube feed post second dialysis sats have improved to 96% will titrate oxygen do wn as tolerated to keep saturation over 92%, critical care time spent 40 minutes 08/31/2020, patient seen eval examined during the rounds labs reviewed medications reviewed care plan discussed with the staff at length, remains medically paralyzed with propofol and Nimbex drip, chest tubes is still significantly leaking on the right side lungs are well expanded though, minimum leak is present at the base, cardiothoracic surgery is have recommended to follow it up closely, no active intervention has been recommended, renal function continued to get worse, patient has been getting diuresis with loop diuretics, would recommend to discontinue it patient remains on bicarb drip, along with anticoagulation, when setting remains stable assist control rate of 24 deep of 12 tidal volume 500 with 100% oxygen, saturation is just a 88-90%, continue broad-spectrum antibiotics and supportive care long-term prognosis poor will defer decision about dialysis to the family and renal services 08/30/2020, patient seen eval examined during the rounds medically sedated and paralyzed of propofol and Nimbex, on full ventilator support with assist control rate of 24 EP is 1200% oxygen which has been reduced to 90% now, saturation 91- 92%, bilateral chest tubes are present minimal air leak on the left side, right- sided apical tube still having persistent nearly however distal intermittently, tolerating tube feed well, labs reviewed arterial blood gas reviewed as well along with radiographic findings patient BUN/creatinine continue to go up consistent with acute tubular necrosis likely related to covid 19 sepsis, arterial blood gases revealed pH is 7.18 pCO2 54 pO2 90, patient improved to 5.4, BUN/creatinine up to 132 and 5.86 08/29/2020, patient seen eval examined during the rounds labs reviewed medications reviewed care plan discussed with the staff including RN and respiratory therapy at length, saturation remains borderline however they were 90% in the morning came down to 84% increasing PEEP causes rapid increase in peak air pressure and platue pressure up to 55 and 35, PEEP lowered to 12, patient remains on 100% oxygen with full assist control mode, arterial blood gases reviewed and significant metabolic acidosis appears to be related to acute renal failure, renal services have been consulted, patient appears to have nonoliguric acute renal failure likely acute tubular necrosis, patient remains gently hydrated to feed and given, remains afebrile, white cell count remains on higher side hemoglobin stable, arterial blood gases noted to be to be pH of 7.18 pCO2 53 pO2 70, 1 amp of bicarb along with bicarb drip have been initiated, potassium running on the higher side of 5.8, inflammatory parameters slightly down of thousand today LDH and C-reactive protein remains elevated, sputum for positive for a MSSA, vancomycin has been discontinued which may be contributing to acute kidney injury, patient remains on the propofol as well as Nimbex drip, patient has 2 chest tubes on the right side and one chest tube on the left side due to pneumomediastinum and bilateral pneumothorax they've been aching is minimal on left and right bottom chest tube significant on apical chest tube however 08/28/2020, patient seen eval examined during the rounds labs reviewed medications reviewed, currently patient is on ventilator support PEEP of 10, 90% oxygen, assist control rate of 30, care blood gases reviewed, chest x-ray reviewed, minimal bilateral apical pneumothorax is present, stable left-sided chest U no air leak is present, right-sided apical tube continued to bubble significant air leak, bottom minimal, patient is medically paralyzed with propofol and Nimbex, laboratory data reviewed discussed at length with the staff 08/27/2020, patient seen eval examined during the rounds sedated and medically paralyzed, right-sided chest tube is still significantly and leak upper tube is present no significantly is seen in the 1 and also left side, labs and arterial blood gases reviewed and ventilator adjusted, chest U was stable on chest x-ray, apical very small pneumothorax, 08/26/2020, patient seen eval examined during the rounds labs reviewed medications reviewed, chest tube continue to gently air, patient intubated, on full ventilator support noted evidence of hypercapnia with increase the ventilation C orders, chest x-ray reviewed trace pneumothorax on the apex cannot be excluded, basal bilateral dense infiltrate with mediastinal emphysema, no significant pneumothorax seen, labs reviewed, critical care time 35 minutes 08/25/2020, patient seen eval examined during the rounds labs reviewed medications reviewed care plan discussed with the staff, patient had a respiratory arrest earlier this morning during which he pulled out his BiPAP machine oxygen saturation dropped down into 20s, he also tried to pull out his chest tube, during that process he was intubated, postintubation chest x-ray shows minimal pneumothorax on the right side left-sided pneumothorax or anterior posterior cannot be excluded, extensive pneumomediastinum is present, patient currently and placed on the propofol at 75 mics was very restless and agitated, tachypneic tachycardic and eventually medically paralyzed with Nimbex drip, respiratory status slightly more stable patient is more calm and now hemodynamics stable, has been getting IV fluids, will need a chest tube on the the left side to avoid tension pneumothorax, keep the 2 chest tube on the right side 1 direct towards the apex appears to be stable however one at the base of the lung is still in, dense bilateral infiltrate are present, white cell count is up to 34,000, arterial blood gas and chest x-ray reviewed consistent with respiratory and metabolic acidosis, with severe hypoxia requiring PEEP with high ventilatory rate 08/24/2020, patient seen eval examined during the rounds labs reviewed medic ations reviewed sitting upright on the bed, remains on BiPAP with 100% oxygen, saturation 95%, patient desaturated into goes on the right side down and intermittently during supine posture, however do better with left side up, and sitting up as well, chest x-ray from today reviewed pneumothorax recurred on the right side in spite of 2 chest tube aiming towards the apex and the base with significant air leak, small left apical pneumothorax however is stable, patient is awaiting evaluation from thoracic surgery for possible VATS or transfer to tertiary care center, left side and INR will put a small bore pigtail catheter at the apex later on this morning, patient remains afebrile slightly tachycardic tachypneic, inflammatory parameters still up, prognosis is guarded care plan discussed directly and indirectly with primary service, staff, cardiothoracic and IR 08/23/2020, patient seen eval reexamined during the rounds labs reviewed medications reviewed, oxygen saturation remained stable, however patient couldn't tolerate off of BiPAP, he remains on BiPAP. All, chest x-ray reviewed, patient hasn't to right-sided chest tube air leak is present from both, left- sided residual small pneumothorax present along with subcutaneous emphysema and mediastinal emphysema, interventional radiology could not do a chest tube on the left side, they are planning to do it tomorrow, white cell count decreased to 19,000, d-dimer is still elevated inflammatory parameters elevated consistent with cytokine nita 08/22/2020, patient seen eval reexamined significant desaturation was more noted, sats dropped down to 55-70% spontaneously comes right back up though currently on 93% BiPAP, Semiprone with the right side up patient cannot tolerate airvo, desaturated easily remains tachypneic tachycardic hemodynamic status however remains stable, chest x-ray findings reviewed in spite of right-sided c hest tube and persistent air leak there is a persistent spontaneous pneumothorax fairly large on the right side and small apical left sided spontaneous pneumothorax noted with pneumomediastinum and bilateral dense infiltrate at the bases, thoracic surgery has been consulted, patient may need an another chest tube on the right side versus VATS and preferably and of the small chest U was on the left side, will defer to expertise of thoracic surgery, labs reviewed medications reviewed care plan discussed at length with the staff 08/21/2020, patient seen eval examined during the rounds sitting upright in chair breathing slightly better oxygen saturation is 87-88%, patient is on high flow oxygen along with the nonrebreather mass, tachypneic tachycardic blood pressure is slightly high, patient has a right-sided chest tube is still leaking air, chest x-ray reviewed bilateral infiltrate is present with residual pneumothorax and subcu emphysema, labs from today reviewed white cell count remains elevated 20,000, renal functions stable, will attempt semi-prone with right side up, we will obtain an transfuse convalescent plasma 08/20/2020, patient seen eval examined during the rounds a labs reviewed medications reviewed this morning patient had problems with agitated anxiety and a prehension, oxygen saturation dropped down into 70s, rapid response was called and stat chest x-ray revealed presence of pneumothorax which is significant on the right side as well they may be a small mediastinal emphysema on the left side as well, patient has been made semi-prone with that oxygen saturation 100% nonrebreather mask improved to 92% patient is more calm, he remains afebrile temperature is 98.3 respiratory rate and mid to high 20s, weight is oxygen saturation 94%, chest x-ray finding reviewed 08/19/2020, patient seen eval examined during the rounds labs reviewed medications reviewed care plan discussed, patient is sitting upright on the bed on 100% nonrebreather mask, saturation remains marginal about 88%, remains afebrile, slightly anxious, advised based he hasn't to be on prone position as much as possible, labs reviewed white cell count is 17,000, patient remains on Remdesivir, Decadron, Lovenox August 18 2020, patient seen eval examined during the rounds is still on 5 L h igh flow oxygen, denies any chest pain breathing difficulties present, denies any cough or sputum production labs chest x-ray reviewed This is a 59-year-old male who has history of diabetes hypertension hypertensive cardiovascular disease and not feeling well for the last 5-6 days with cough and increased shortness of breath started with a sore throat, patient admitted into the hospital was spiking fever up to 101, oxygen saturation 90%, patient already has been started on REM doesn't wear and Decadron, his initial admit x-ray cystoscopy right midlung field and left lower lid feeding infiltrate patient gradually got worse initially has been on room air oxygen requirement keep on going up to 3 L and subsequently on 5 L high flow oxygen with that oxygen saturation is 93%, critical care time spent 35 minutes Objective - Vital Signs Vital signs: Vital Signs Temp 98.5 F 09/07/20 12:00 Pulse 76 09/07/20 14:00 Resp 34 H 09/07/20 14:00 BP 134/62 09/06/20 14:45 Pulse Ox 96 09/07/20 14:00 Intake & Output 09/06/20 09/07/20 09/07/20 18:59 06:59 18:59 Intake Total 7451.089 8331.933 834.153 Output Total 58 80 5 Balance 6500.145 2346.933 829.153 Weight 124.1 kg 124.5 kg 124.5 kg Intake: IV 296 266 284 Cefepime 1 gm In Sodium 50 50 Chloride 0.9% 50 ml @ 12. 5 mls/hr IVPB Q12HR [facility] Rx#:[id number] Normal Saline PRessure 36 36 24 bag metroNIDAZOLE-NS PMX 500 100 100 mg In Saline 1 100ml.bag @ 100 mls/hr IVPB Q8HR [facility] Rx#:[id number] sodium chloride @ 10ml hr 210 130 110 Intake, IV Titration 686.585 544.933 192.153 Amount Insulin Regular 100 unit 105.713 76.541 0 In Sodium Chloride 0.9% 100 ml @ Per Protocol IV .Q0M [facility] Rx#:[id number] Norepinephrine 32 mg In 78.824 68.392 Sodium Chloride 0.9% 218 ml @ 0.05 MCG/KG/MIN 2. 866 mls/hr IV .Q24H [facility] Rx#:[id number] metroNIDAZOLE-NS PMX 500 200 mg In Saline 1 100ml.bag @ 100 mls/hr IVPB Q8HR [facility] Rx#:[id number] propofoL 1,000 mg In 302.048 400 192.153 Empty Bag 1 bag @ Titrate IV .Q0M [facility] Rx#: [id number] Tube Feeding 408 408 238 Other 210 90 120 Output: Chest Tube Drainage 20 30 0 Chest Tube Right 0 0 0 Chest Tube Right Upper 0 0 0 Left Upper Anterior Chest 20 30 0 Urine 38 50 5 Other: Voiding Method Indwelling Catheter Indwelling Catheter Indwelling Catheter ABP, PAP, CO, CI - Last Documented Arterial Blood Pressure 151/59 - Exam - Constitutional General appearance: Intubated medically paralyzed on full ventilator support - EENT Eyes: EOMI, PERRLA Ears: bilateral: normal - Neck Neck: normal ROM Carotids: bilateral: upstroke normal Thyroid: bilateral: normal size - Respiratory Respiratory: bilateral: diminished - Cardiovascular Rhythm: regular Heart sounds: normal: S1, S2 - Gastrointestinal General gastrointestinal: normal bowel sounds - Neurologic Neurologic: CNII-XII intact - Musculoskeletal Musculoskeletal: gait normal, generalized weakness, strength equal bilaterally - Psychiatric Psychiatric: Appears, now post medical paralysis - Labs CBC & Chem 7: 09/07/20 04:10 09/07/20 04:10 Labs: Abnormal Lab Results - Last 24 Hours (Table) 09/06/20 09/06/20 09/06/20 Range/Units 15:50 18:04 20:17 WBC (3.8-10.6) k/uL RBC (4.30-5.90) m/uL Hgb (13.0-17.5) gm/dL Hct (39.0-53.0) % ABG pH (7.35-7.45) ABG HCO3 (21-25) mmol/L Sodium (137-145) mmol/L Carbon Dioxide (22-30) mmol/L BUN (9-20) mg/dL Creatinine (0.66-1.25) mg/dL Glucose (74-99) mg/dL POC Glucose (mg/dL) 158 H 148 H 121 H (75-99) mg/dL Calcium (8.4-10.2) mg/dL 09/06/20 09/06/20 09/07/20 Range/Units 21:50 23:40 02:02 WBC (3.8-10.6) k/uL RBC (4.30-5.90) m/uL Hgb (13.0-17.5) gm/dL Hct (39.0-53.0) % ABG pH (7.35-7.45) ABG HCO3 (21-25) mmol/L Sodium (137-145) mmol/L Carbon Dioxide (22-30) mmol/L BUN (9-20) mg/dL Creatinine (0.66-1.25) mg/dL Glucose (74-99) mg/dL POC Glucose (mg/dL) 129 H 144 H 133 H (75-99) mg/dL Calcium (8.4-10.2) mg/dL 09/07/20 09/07/20 09/07/20 Range/Units 03:26 04:10 04:10 WBC 19.9 H (3.8-10.6) k/uL RBC 2.72 L (4.30-5.90) m/uL Hgb 8.0 L (13.0-17.5) gm/dL Hct 23.8 L (39.0-53.0) % ABG pH (7.35-7.45) ABG HCO3 (21-25) mmol/L Sodium 134 L (137-145) mmol/L Carbon Dioxide 20 L (22-30) mmol/L BUN 89 H (9-20) mg/dL Creatinine 6.37 H (0.66-1.25) mg/dL Glucose 139 H (74-99) mg/dL POC Glucose (mg/dL) 146 H (75-99) mg/dL Calcium 7.1 L (8.4-10.2) mg/dL 09/07/20 09/07/20 09/07/20 Range/Units 04:51 05:30 06:00 WBC (3.8-10.6) k/uL RBC (4.30-5.90) m/uL Hgb (13.0-17.5) gm/dL Hct (39.0-53.0) % ABG pH 7.22 L (7.35-7.45) ABG HCO3 18 L (21-25) mmol/L Sodium (137-145) mmol/L Carbon Dioxide (22-30) mmol/L BUN (9-20) mg/dL Creatinine (0.66-1.25) mg/dL Glucose (74-99) mg/dL POC Glucose (mg/dL) 146 H 137 H (75-99) mg/dL Calcium (8.4-10.2) mg/dL 09/07/20 09/07/20 09/07/20 Range/Units 08:25 11:01 12:03 WBC (3.8-10.6) k/uL RBC (4.30-5.90) m/uL Hgb (13.0-17.5) gm/dL Hct (39.0-53.0) % ABG pH (7.35-7.45) ABG HCO3 (21-25) mmol/L Sodium (137-145) mmol/L Carbon Dioxide (22-30) mmol/L BUN (9-20) mg/dL Creatinine (0.66-1.25) mg/dL Glucose (74-99) mg/dL POC Glucose (mg/dL) 170 H 177 H 172 H (75-99) mg/dL Calcium (8.4-10.2) mg/dL 09/07/20 Range/Units 13:39 WBC (3.8-10.6) k/uL RBC (4.30-5.90) m/uL Hgb (13.0-17.5) gm/dL Hct (39.0-53.0) % ABG pH (7.35-7.45) ABG HCO3 (21-25) mmol/L Sodium (137-145) mmol/L Carbon Dioxide (22-30) mmol/L BUN (9-20) mg/dL Creatinine (0.66-1.25) mg/dL Glucose (74-99) mg/dL POC Glucose (mg/dL) 172 H (75-99) mg/dL Calcium (8.4-10.2) mg/dL Microbiology - Last 24 Hours (Table) 08/31/20 17:21 Blood Culture - Final Blood No Growth after 144 hours Assessment and Plan Assessment: Multiorgan failure including renal respiratory hematopoietic and cardiovascular Pseudomonas pneumonia Acute renal failure due to acute tubular necrosis related to Covid 19 pneumonia Mediastinal and bilateral pneumothorax Acute hypoxic and hypercapnic respiratory failure Status post respiratory arrest patient intubated on full ventilator support lung protective strategy MSSA pneumonia Bilateral DVT Acute kidney injury likely related to acute tubular necrosis as well as vancomycin associated renal damage on daily dialysis Free air in the abdomen due to mediastinal emphysema and pneumothorax Acute hypoxic respiratory failure Covid 19 pneumonia and ARDS related to that Type 2 diabetes mellitus Hypertension hypertensive cardiovascular disease Dehydration hypovolemia and hyponatremia Depression Overall prognosis is very poor Plan: Ventilator support adjustment as needed, continue titrated oxygen down Heparin drip can be started tomorrow once cleared by hematology service Anticoagulation has been stopped per recommendation of hematology awaiting factor X A levels Maintain bilateral chest tube Hemo-dialysis is in progress Cephapirin for MSSA and Pseudomonas pneumonia Continue to follow sugars closely, continue insulin drip Vasopressors as needed Medical paralysis Status post Convalescent plasma Continue Decadron and status post IV Remdesivir for 5 days respectively Further plan of care as per clinical response of the patient, overall prognosis is guarded with likelihood of recovery is poor Multiorgan failure
[2020-09-07 15:29] LABS: Glucose,Whole Blood 155 mg/dL (75-99)
--- NOTE | 2020-09-07 18:07 | P.PN ---
Subjective Covid 19 infection/pneumonia 53-year-old male is admitted for Covid19 pneumonitis, sepsis. Patient went into hypoxemia last night ended up on 3 L of oxygen.overall feeling little bit better. 08/17/2020 Patient's is pretty status is worse and patient is not doing well in spite of high flow nasal cannula oxygen along with 100% many mask. Patient is being started on Remdesivir. Patient is still complaining of shortness of breath Constitutional: Denied any fatigue denied any fever. Cardio vascular: denied any chest pain, palpitations Gastrointestinal denied any nausea vomiting Pulmonary: As mentioned above Neurologic denied any new focal deficits All inpatient medications were reviewed and appropriate changes in these medications as dictated in the interval history and assessment and plan. 08/18/2020 Patient is seen and evaluated in follow-up and continues to be maintained on high flow oxygen via nasal cannula. Infectious disease is following. Patient continues to have shortness of breath especially with exertion. Discussed with the patient about increasing activity and getting up to the commode and chair. Patient states he feels slightly better today although continues to be extremely dyspneic. Review of systems: Constitutional: No reports of fatigue, fever, or chills Cardiovascular: No reports of chest pain or palpitations Respiratory: Reports shortness of breath with occasional cough GI: No reports of nausea, vomiting, or diarrhea : No reports of dysuria or retention Neurovascular: No reports of weakness or numbness All medications have been reviewed 08/19/2020 Patient is seen and evaluated in follow-up with no real improvement of respiratory status. Patient continues to sat in the low 80s and drops quickly without oxygen. He she is currently maintained on 15 L high flow oxygen along with a nonrebreather over that and was able to obtain 90% oxygen saturation. Patient is currently sitting up at the bedside asking when he can go home. Discussed with the patient at length about respiratory status and his inability to come off oxygen at this time. White blood count elevated at 17.9 from yest erday. BMP within normal limits although blood glucose levels continue to be elevated. Patient is maintained on sliding scale along with long-acting and oral antidiabetic medications. Will continue to monitor as the dexamethasone may be a component of elevated glucose levels. Discussed with the patient about incentive spirometer and instructed to use at least 10 times every hour while awake. Patient currently denies any chest pain or palpitations. Patient is afebrile. No reports of nausea or vomiting patient states he does not have much of an appetite although is tolerating diet. 08/20/2020 Patient is seen in follow-up and continues to be on a nonrebreather and 15 L high flow oxygen and was found to be extremely anxious and hypoxic with saturations in the 70s earlier this morning Repeat chest x-ray done today shows right side pneumothorax along with pneumo mediastinum, subcutaneous emphysema. Pulmonary Dr. López is following and will be placing a chest tube this afternoon. Lovenox dose will be adjusted once chest tube is placed. White blood count elevated at 20.7. D-dimer was found to be 13.05. Review of systems: Constitutional: Anxious, no reports of fever, or chills Cardiovascular: No reports of chest pain or palpitations Respiratory: reports worsening shortness of breath and difficulty breathing GI: No reports of nausea, vomiting, or diarrhea : No reports of dysuria or retention Neurovascular: No reports of weakness or numbness All medications have been reviewed 08/21/2020 Patient is seen and evaluated and follow-up currently remains in the ICU as patient underwent right chest tube placement with Dr. López yesterday due to right pneumothorax with pneumomediastinum and subcutaneous emphysema. Patient is currently sitting up in the chair and on a nonrebreather and high flow oxygen at flow rate of 60% with an FiO2 of 85%. Patient is currently at 89% oxygen saturation. Patient is also receiving a unit of fresh frozen plasma and is maintained on Lovenox. Blood sugars continue to be elevated and will continue to monitor with long-acting along with sliding scale. White Blood count 20.2. Chest x-ray this morning shows a stable right pneumothorax with right-sided chest tube noted and stable subcutaneous emphysema. Patient instructed to continue with incentive spirometer and semi-prone position with the right side up. Patient is somewhat anxious and agitated with remaining hospitalized. No reports of chest pain or palpitations. Denies any nausea or vomiting and is tolerating diet. Patient is currently afebrile. 08/22/2020 Patient has 2 chest tubes on the right side. Patient remains on airvo, there was a persistent leak in the previous chest tube. 08/23/2020 Patient the has bilateral pneumothorax right side has 2 chest tubes attached to wall suction and left-sided pneumothorax is 10-15% which is being monitored, cardiothoracic surgery evaluated the patient. Patient is presently on Bipap. Review of systems: Unable to obtain due to his clinical condition did All inpatient medications were reviewed and appropriate changes in these medications as dictated in the interval history and assessment and plan. 08/24/2020 Patient currently remains on a BiPAP and has 2 right-sided chest tubes and awaiting for possible pigtail once more stabilized. Patient is currently unable to tolerate travel to [place] for interventional radiology to place the catheter. Chest x-ray today shows a moderate size recurrence of the right pneumothorax along with a small left apical pneumo that appears to be stable along with diffuse patchy infiltrates within bilateral lung ulloa. Pulmonary following closely. Discussed with pulmonary about the possibility of a transfer to a tertiary care center if patient's clinical status continues to deteriorate and unable to obtain the left side pigtail catheter. Remains in the ICU with close monitoring. Patient continues on IV antibiotics in the form of cefepime and vancomycin along with zinc, Lovenox, and dexamethasone. Review of systems: Constitutional: Reports fatigue, anxious, no reports of fever, or chills Cardiovascular: No reports of chest pain or palpitations Respiratory: Reports continued shortness of breath and cough GI: No reports of nausea, vomiting, or diarrhea : No reports of dysuria or retention Neurovascular: Reports weakness, no reports of numbness All medications have been reviewed 08/25/2020 Patient is seen and evaluated in follow-up and continues to be closely monitored in the ICU. Patient had a brief period Of respiratory arrest with attempts to pull out chest tubes after removing the BiPAP and was ultimately intubated. Patient was placed on sedation and appears much more calm at this time. Patient currently awaiting to receive a left side chest tube for the small pneumothorax with pulmonary. Patient continues to have 2 right-sided chest tubes at this time. White blood count elevated Review of systems: Unable to assess as patient is currently intubated and sedated. 08/26/20 Patient seen in follow up current remains in the ICU being closely monitored. Repeat chest xray today shows continued diffuse bilateral air space infiltrates with no pneumothoraces visible. Patient continues to have 3 chest tubes and intubated. Prognosis is poor. Code status discussed with the Bette Flores today and she would like him comfortable and made a no code. Consult placed to case management for hospice consult as she would like information about hospice and comfort measures. 08/27/2020 Patient is currently on back on ventilator. Sedated and paralyzed. Patient does have chest tubes in place. Chest x-ray showed stable portable chest. Bilateral chest tubes are redemonstrated. Bilateral less than 10% pneumothorax seen bilaterally. Laboratory data showed WBC 28.6, hemoglobin 13.0, platelets 157 Lymphocyte count 0.2 ABG showed pH of 7.19, PCO2 61 and PO2 6390% FiO2 Sodium 136, potassium 5.7 and chloride 108, BUN 64 and creatinine 3.17 Significantly elevated inflammatory markers. Patient is being continued on antibiotics in the form of cefepime and vancomycin. Currently on dexamethasone and completed remdesivir course. Continued on insulin dosing. 09/05/2020 Patient is currently in the MICU sedated and intubated. Patient was having bleeding through the endotracheal tube and OG tube. Anticoagulation is on hold at this time. Patient is currently 80% FiO2 and assist control. Chest x-ray showed no significant pneumothorax seen. Minimal subcutaneous emphysema and mediastinal emphysema leaving the left chest tube. Right chest tube without leaking air. Patient is tolerating tube feeding. Currently on antibiotics in the form of IV cefepime for MSSA pneumonia. Patient underwent hemodialysis today. 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 Currently on FiO2 60%. Intubated and sedated. Patient underwent hemodialysis yesterday with 2.5 L ultrafiltration. Tolerating tube feeding. Continued on Levophed. Anticoagulation is on hold due to bleeding from the ET tube and Hallman catheter. Hematology has seen the patient and bleeding dialysis felt to be mostly due to enhanced anticoagulant effect of Lovenox and also platelet dysfunction due to renal failure on hemodialysis. Antifactor 10-year has been ordered and is currently pending.. Chest x-ray showed diffuse interstitial infiltrates remain. Airspace disease in the right lower lobe show some improvement. Bilateral chest tubes. Slight improvement in the patient's subcutaneous emphysema as well. Laboratory data showed WBC 20.1 hemoglobin 8.6 Sodium 134, potassium 4.5, BUN 70 and creatinine 4.93 and inflammatory markers are elevated. Patient is being continued on antibiotics in the form of cefepime and Flagyl. Sputum cultures grew Pseudomonas and Kristen albicans. Repeat blood cultures have been negative so far. 09/07/2020 Patient is undergoing hemodialysis today. Patient agrees to have right-sided to 2 chest tubes and left-sided 1 chest tube. Patient remains on propofol drip and Nimbex. Patient the is on insulin drip for Levothroid drip sputum cultures are positive for MSSA and pseudomonas, Kristen albicans. Infectious disease is following the patient as well. Patient is presently on cefepime and metronidazole. Current medications reviewed. Review of systems: Unable to obtain as patient is intubated and sedated. Objective - Vital Signs Vital signs: Vital Signs Temp 97.8 F 09/07/20 17:05 Pulse 79 09/07/20 17:05 Resp 29 H 09/07/20 17:05 BP 108/47 09/07/20 17:05 Pulse Ox 96 09/07/20 14:00 Intake & Output 09/06/20 09/07/20 09/07/20 18:59 06:59 18:59 Intake Total 5699.554 4533.933 1025.289 Output Total 58 80 2505 Balance 6955.939 1649.933 -1479.711 Weight 124.1 kg 124.5 kg 124.5 kg Intake: IV 296 266 284 Cefepime 1 gm In Sodium 50 50 Chloride 0.9% 50 ml @ 12. 5 mls/hr IVPB Q12HR [facility] Rx#:[id number] Normal Saline PRessure 36 36 24 bag metroNIDAZOLE-NS PMX 500 100 100 mg In Saline 1 100ml.bag @ 100 mls/hr IVPB Q8HR [facility] Rx#:[id number] sodium chloride @ 10ml hr 210 130 110 Intake, IV Titration 686.585 544.933 383.289 Amount Insulin Regular 100 unit 105.713 76.541 47.958 In Sodium Chloride 0.9% 100 ml @ Per Protocol IV .Q0M [facility] Rx#:[id number] Norepinephrine 32 mg In 78.824 68.392 41.809 Sodium Chloride 0.9% 218 ml @ 0.05 MCG/KG/MIN 2. 866 mls/hr IV .Q24H [facility] Rx#:[id number] metroNIDAZOLE-NS PMX 500 200 mg In Saline 1 100ml.bag @ 100 mls/hr IVPB Q8HR [facility] Rx#:[id number] propofoL 1,000 mg In 302.048 400 293.522 Empty Bag 1 bag @ Titrate IV .Q0M [facility] Rx#: [id number] Tube Feeding 408 408 238 Other 210 90 120 Output: Chest Tube Drainage 20 30 0 Chest Tube Right 0 0 0 Chest Tube Right Upper 0 0 0 Left Upper Anterior Chest 20 30 0 Urine 38 50 5 Hemodialysis 2500 Other: Voiding Method Indwelling Catheter Indwelling Catheter Indwelling Catheter ABP, PAP, CO, CI - Last Documented Arterial Blood Pressure 151/59 - Exam GENERAL: The patient is intubated and sedated and appears to be in no acute distress. HEENT: Pupils are round and equally reacting to light. EOMI. No scleral icterus. No conjunctival pallor. Normocephalic, atraumatic. No pharyngeal erythema. No thyromegaly. ET tube noted CARDIOVASCULAR: S1 and S2 present. No murmurs, rubs, or gallops. PULMONARY: Bilateral scattered rhonchi, no wheezing noted diminished air entry bilaterally worse on the right, tachypneic, 2 chest tubes noted on the right side and one on the left ABDOMEN: Soft, nontender, nondistended, normoactive bowel sounds. No palpable organomegaly. MUSCULOSKELETAL: No joint swelling or deformity. EXTREMITIES: No cyanosis, clubbing, or pedal edema. NEUROLOGICAL: Unable to fully assess as patient is intubated and sedated SKIN: No rashes. Note: Because of COVID 19 isolation, some of the history and physical exam findings are indirect and obtained from nursing staff, and other physician examinations to avoid unnecessary contact with the patient. - Labs CBC & Chem 7: 09/07/20 04:10 09/07/20 04:10 Labs: Abnormal Lab Results - Last 24 Hours (Table) 09/06/20 09/06/20 09/06/20 Range/Units 18:04 20:17 21:50 WBC (3.8-10.6) k/uL RBC (4.30-5.90) m/uL Hgb (13.0-17.5) gm/dL Hct (39.0-53.0) % ABG pH (7.35-7.45) ABG HCO3 (21-25) mmol/L Sodium (137-145) mmol/L Carbon Dioxide (22-30) mmol/L BUN (9-20) mg/dL Creatinine (0.66-1.25) mg/dL Glucose (74-99) mg/dL POC Glucose (mg/dL) 148 H 121 H 129 H (75-99) mg/dL Calcium (8.4-10.2) mg/dL 09/06/20 09/07/20 09/07/20 Range/Units 23:40 02:02 03:26 WBC (3.8-10.6) k/uL RBC (4.30-5.90) m/uL Hgb (13.0-17.5) gm/dL Hct (39.0-53.0) % ABG pH (7.35-7.45) ABG HCO3 (21-25) mmol/L Sodium (137-145) mmol/L Carbon Dioxide (22-30) mmol/L BUN (9-20) mg/dL Creatinine (0.66-1.25) mg/dL Glucose (74-99) mg/dL POC Glucose (mg/dL) 144 H 133 H 146 H (75-99) mg/dL Calcium (8.4-10.2) mg/dL 09/07/20 09/07/20 09/07/20 Range/Units 04:10 04:10 04:51 WBC 19.9 H (3.8-10.6) k/uL RBC 2.72 L (4.30-5.90) m/uL Hgb 8.0 L (13.0-17.5) gm/dL Hct 23.8 L (39.0-53.0) % ABG pH (7.35-7.45) ABG HCO3 (21-25) mmol/L Sodium 134 L (137-145) mmol/L Carbon Dioxide 20 L (22-30) mmol/L BUN 89 H (9-20) mg/dL Creatinine 6.37 H (0.66-1.25) mg/dL Glucose 139 H (74-99) mg/dL POC Glucose (mg/dL) 146 H (75-99) mg/dL Calcium 7.1 L (8.4-10.2) mg/dL 09/07/20 09/07/20 09/07/20 Range/Units 05:30 06:00 08:25 WBC (3.8-10.6) k/uL RBC (4.30-5.90) m/uL Hgb (13.0-17.5) gm/dL Hct (39.0-53.0) % ABG pH 7.22 L (7.35-7.45) ABG HCO3 18 L (21-25) mmol/L Sodium (137-145) mmol/L Carbon Dioxide (22-30) mmol/L BUN (9-20) mg/dL Creatinine (0.66-1.25) mg/dL Glucose (74-99) mg/dL POC Glucose (mg/dL) 137 H 170 H (75-99) mg/dL Calcium (8.4-10.2) mg/dL 09/07/20 09/07/20 09/07/20 Range/Units 11:01 12:03 13:39 WBC (3.8-10.6) k/uL RBC (4.30-5.90) m/uL Hgb (13.0-17.5) gm/dL Hct (39.0-53.0) % ABG pH (7.35-7.45) ABG HCO3 (21-25) mmol/L Sodium (137-145) mmol/L Carbon Dioxide (22-30) mmol/L BUN (9-20) mg/dL Creatinine (0.66-1.25) mg/dL Glucose (74-99) mg/dL POC Glucose (mg/dL) 177 H 172 H 172 H (75-99) mg/dL Calcium (8.4-10.2) mg/dL 09/07/20 Range/Units 15:26 WBC (3.8-10.6) k/uL RBC (4.30-5.90) m/uL Hgb (13.0-17.5) gm/dL Hct (39.0-53.0) % ABG pH (7.35-7.45) ABG HCO3 (21-25) mmol/L Sodium (137-145) mmol/L Carbon Dioxide (22-30) mmol/L BUN (9-20) mg/dL Creatinine (0.66-1.25) mg/dL Glucose (74-99) mg/dL POC Glucose (mg/dL) 155 H (75-99) mg/dL Calcium (8.4-10.2) mg/dL Microbiology - Last 24 Hours (Table) 11/30/20 17:21 Blood Culture - Final Blood No Growth after 144 hours Assessment and Plan Plan: -Covid 19 infection/pneumonia -Acute hypoxic, hypercapnic respiratory failure requiring mechanical ventilation -Septic shock maintained on Levophed. -confirmed pneumoperitoneum as noted on CT -bilateral lower extremity deep vein thromboses -acute renal failure likely acute tubular necrosis, likely from vancomycin toxicity currently requiring hemodialysis -Acute respiratory arrest with hypoxia -Right side pneumothorax , small stable left-sided pneumothorax. -Type 2 diabetes mellitus, remains on insulin drip -mild hypovolemic hyponatremia -Hypertension: -DVT prophylaxis -GI prophylaxis Plan: Continue current medications and continue to monitor closely. Patient currently in the ICU for close monitoring. Patient is currently intubated and sedated. Maintained on IV antibiotics in the form of Cefepime and Flagyl. Pulmonary and infectious disease also following along with nephrology and surgery. Patient currently undergoing daily hemodialysis. CT of the abdomen confirmed pneu moperitoneum. Heparin has been discontinued as patient is having bleeding noted from the oral cavity. Lovenox will be resumed once no bleeding is noted. hemoglobin is stable at 9.9 this morning. Patient has become hypotensive requiring pressor support and currently on Levophed. Patient continues on insulin drip and will continue at this time. Prognosis is extremely guarded and poor. Will continue to monitor vital signs and labs closely. Further recommendations to follow.
[2020-09-07 18:33] LABS: Glucose,Whole Blood 153 mg/dL (75-99)
[2020-09-07] MEDS: ASPIRIN 81 MG PO SCH (20:14)
[2020-09-07 20:30] LABS: Glucose,Whole Blood 138 mg/dL (75-99)
--- NOTE | 2020-09-07 20:39 | P.PN ---
Subjective Progress Note Date: 09/07/20 Hemoglobin continues to decrease, still awaiting Xa level, discussed with lab Objective - Vital Signs Vital signs: Vital Signs Temp 97.8 F 09/07/20 17:05 Pulse 73 09/07/20 19:45 Resp 34 H 09/07/20 19:45 BP 134/62 09/07/20 19:45 Pulse Ox 98 09/07/20 19:45 Intake & Output 09/07/20 09/07/20 09/08/20 06:59 18:59 06:59 Intake Total 2029.111 5088.560 43 Output Total 80 2505 10 Balance 1228.933 -1153.440 33 Weight 124.5 kg 124.5 kg Intake: IV 266 476 23 Cefepime 1 gm In Sodium 50 Chloride 0.9% 50 ml @ 12. 5 mls/hr IVPB Q12HR [facility] Rx#:[id number] Normal Saline PRessure 36 36 3 bag metroNIDAZOLE-NS PMX 500 100 200 mg In Saline 1 100ml.bag @ 100 mls/hr IVPB Q8HR [facility] Rx#:[id number] sodium chloride @ 10ml hr 130 190 20 Intake, IV Titration 544.933 393.560 Amount Insulin Regular 100 unit 76.541 47.958 In Sodium Chloride 0.9% 100 ml @ Per Protocol IV .Q0M [facility] Rx#:[id number] Norepinephrine 32 mg In 68.392 41.809 Sodium Chloride 0.9% 218 ml @ 0.05 MCG/KG/MIN 2. 866 mls/hr IV .Q24H [facility] Rx#:[id number] propofoL 1,000 mg In 400 303.793 Empty Bag 1 bag @ Titrate IV .Q0M [facility] Rx#: [id number] Tube Feeding 408 332 20 Other 90 150 Output: Chest Tube Drainage 30 0 Chest Tube Right 0 0 Chest Tube Right Upper 0 0 Left Upper Anterior Chest 30 0 Urine 50 5 10 Hemodialysis 2500 Other: Voiding Method Indwelling Catheter Indwelling Catheter ABP, PAP, CO, CI - Last Documented Arterial Blood Pressure 107/52 - Exam - Constitutional Sedated, on vent - EENT ENT: other (Small amount of bright blood in visible oral cavity. Mild tongue swelling) - Neck Neck: no lymphadenopathy Thyroid: bilateral: normal size - Respiratory Respiratory: bilateral: CTA - Cardiovascular Rhythm: regular Heart sounds: normal: S1, S2 - Gastrointestinal Stool collection system, with watery greenish brown stool General gastrointestinal: decreased bowel sounds, soft - Integumentary Integumentary: normal - Neurologic Sedated, on vent - Musculoskeletal Upper and lower extremity edema Musculoskeletal: generalized weakness - Psychiatric Related, on ventilator - Labs CBC & Chem 7: 09/07/20 04:10 09/07/20 04:10 Labs: Abnormal Lab Results - Last 24 Hours (Table) 09/06/20 09/06/20 09/06/20 Range/Units 20:17 21:50 23:40 WBC (3.8-10.6) k/uL RBC (4.30-5.90) m/uL Hgb (13.0-17.5) gm/dL Hct (39.0-53.0) % ABG pH (7.35-7.45) ABG HCO3 (21-25) mmol/L Sodium (137-145) mmol/L Carbon Dioxide (22-30) mmol/L BUN (9-20) mg/dL Creatinine (0.66-1.25) mg/dL Glucose (74-99) mg/dL POC Glucose (mg/dL) 121 H 129 H 144 H (75-99) mg/dL Calcium (8.4-10.2) mg/dL 09/07/20 09/07/20 09/07/20 Range/Units 02:02 03:26 04:10 WBC 19.9 H (3.8-10.6) k/uL RBC 2.72 L (4.30-5.90) m/uL Hgb 8.0 L (13.0-17.5) gm/dL Hct 23.8 L (39.0-53.0) % ABG pH (7.35-7.45) ABG HCO3 (21-25) mmol/L Sodium (137-145) mmol/L Carbon Dioxide (22-30) mmol/L BUN (9-20) mg/dL Creatinine (0.66-1.25) mg/dL Glucose (74-99) mg/dL POC Glucose (mg/dL) 133 H 146 H (75-99) mg/dL Calcium (8.4-10.2) mg/dL 09/07/20 09/07/20 09/07/20 Range/Units 04:10 04:51 05:30 WBC (3.8-10.6) k/uL RBC (4.30-5.90) m/uL Hgb (13.0-17.5) gm/dL Hct (39.0-53.0) % ABG pH 7.22 L (7.35-7.45) ABG HCO3 18 L (21-25) mmol/L Sodium 134 L (137-145) mmol/L Carbon Dioxide 20 L (22-30) mmol/L BUN 89 H (9-20) mg/dL Creatinine 6.37 H (0.66-1.25) mg/dL Glucose 139 H (74-99) mg/dL POC Glucose (mg/dL) 146 H (75-99) mg/dL Calcium 7.1 L (8.4-10.2) mg/dL 09/07/20 09/07/20 09/07/20 Range/Units 06:00 08:25 11:01 WBC (3.8-10.6) k/uL RBC (4.30-5.90) m/uL Hgb (13.0-17.5) gm/dL Hct (39.0-53.0) % ABG pH (7.35-7.45) ABG HCO3 (21-25) mmol/L Sodium (137-145) mmol/L Carbon Dioxide (22-30) mmol/L BUN (9-20) mg/dL Creatinine (0.66-1.25) mg/dL Glucose (74-99) mg/dL POC Glucose (mg/dL) 137 H 170 H 177 H (75-99) mg/dL Calcium (8.4-10.2) mg/dL 09/07/20 09/07/20 09/07/20 Range/Units 12:03 13:39 15:26 WBC (3.8-10.6) k/uL RBC (4.30-5.90) m/uL Hgb (13.0-17.5) gm/dL Hct (39.0-53.0) % ABG pH (7.35-7.45) ABG HCO3 (21-25) mmol/L Sodium (137-145) mmol/L Carbon Dioxide (22-30) mmol/L BUN (9-20) mg/dL Creatinine (0.66-1.25) mg/dL Glucose (74-99) mg/dL POC Glucose (mg/dL) 172 H 172 H 155 H (75-99) mg/dL Calcium (8.4-10.2) mg/dL 09/07/20 Range/Units 18:32 WBC (3.8-10.6) k/uL RBC (4.30-5.90) m/uL Hgb (13.0-17.5) gm/dL Hct (39.0-53.0) % ABG pH (7.35-7.45) ABG HCO3 (21-25) mmol/L Sodium (137-145) mmol/L Carbon Dioxide (22-30) mmol/L BUN (9-20) mg/dL Creatinine (0.66-1.25) mg/dL Glucose (74-99) mg/dL POC Glucose (mg/dL) 153 H (75-99) mg/dL Calcium (8.4-10.2) mg/dL Microbiology - Last 24 Hours (Table) 08/31/20 17:21 Blood Culture - Final Blood No Growth after 144 hours Assessment and Plan Plan: Assessment and Plan: Bleeding Diathesis - - Component of enhanced anticoagulant effect of Lovenox as primary etiology, as well as a lesser component of heparin due to the patient's renal insufficiency. - Likely portion of platelet dysfunction due to renal failure. - Clinically he continues to have oozing of blood from mucous membranes and IV sites, although does not appear to be having any increased bleeding. - Drop in hemoglobin continues and is now 8. - Platelet counts continue to remain within normal. - No coagulopathy noted on labs. Recheck Coags in am - Anti-X A has been ordered and is pending. I have discussed with lab to expedite and re-order placed. This is a send out test, results may be delayed. - Await XA prior to resuming anti-coagulation and stabilization of hemoglobin - Continue to monitor coagulation parameters, Daily CBC, to check for any development of DIC-type phenomenon related to his underlying COVID Physician Attest: I have completed the full history and physical and agree with above dictation, dictated as a scribe
[2020-09-07 21:32] LABS: Partial Thromboplastin Time 24.6 sec (22.0-30.0); Prothrombin Time 10.1 sec (9.0-12.0)
[2020-09-07 22:03] LABS: Glucose,Whole Blood 144 mg/dL (75-99)
--- NOTE | 2020-09-07 22:42 | PN ---
PROGRESS NOTE DATE OF SERVICE: 09/07/2020 REASON FOR FOLLOWUP: Pneumonia. INTERVAL HISTORY: The patient is currently afebrile. The patient was undergoing hemodialysis . The patient's FiO2 is currently down to 60%. No significant purulent secretion in the ET has been reported by the nursing staff or worsening diarrhea. PHYSICAL EXAMINATION: Blood pressure 113/58 with a pulse of 77, temperature 98.4. He is 98% on 60% FiO2. General description is a middle-aged male intubated on the vent. RESPIRATORY SYSTEM: Unlabored breathing with decreased breath sounds at the base. No wheeze. HEART: S1, S2. Regular rate and rhythm. ABDOMEN: Soft. Mildly distended. No guarding or rigidity. EXTREMITIES: Two plus edema of the feet. LABS: Hemoglobin is 8, white count 19.9. BUN of 89, creatinine 6.37. DIAGNOSTIC IMPRESSION AND PLAN: Patient with acute respiratory failure which is multifactorial in this patient who did have a component of pneumonia in this patient currently covered with cefepime and Flagyl patient's prognosis remains guarded. Continue with supportive care. MMODL / IJN: [id number] /
[2020-09-07 23:41] LABS: Glucose,Whole Blood 136 mg/dL (75-99)
[2020-09-08 01:47] LABS: Glucose,Whole Blood 143 mg/dL (75-99)
[2020-09-08 03:30] LABS: Glucose,Whole Blood 132 mg/dL (75-99)
[2020-09-08 04:52] LABS: HCT 24.5 % (39.0-53.0); HGB 8.1 gm/dL (13.0-17.5); MCH 28.7 pg (25.0-35.0); MCHC 33.2 g/dL (31.0-37.0); MCV 86.4 fL (80.0-100.0); Mean Platelet Volume 8.2; Platelet Count 170 k/uL (150-450); Poikilocytosis Slight; RBC 2.84 m/uL (4.30-5.90); RDW 15.4 % (11.5-15.5); WBC 17.2 k/uL (3.8-10.6)
[2020-09-08 05:20] LABS: Calcium 7.1 mg/dL (8.4-10.2); Potassium 4.4 mmol/L (3.5-5.1)
[2020-09-08 05:22] LABS: ABG Base Excess -7.7 mmol/L; ABG HCO3 20 mmol/L (21-25); ABG PCO2 45 mmHg (35-45); ABG PH 7.25 (7.35-7.45); ABG PO2 71 mmHg (83-108); ABG TCO2 21 mmol/L (19-24); Allen Test Performed? Yes
[2020-09-08 07:03] LABS: Glucose,Whole Blood 156 mg/dL (75-99)
[2020-09-08 07:58] LABS: Glucose,Whole Blood 157 mg/dL (75-99)
[2020-09-08] MEDS: metroNIDAZOLE-NS PMX 500 MG in SALINE 1 100ML.BAG IVPB SCH (09:12)
[2020-09-08] MEDS: CHLORHEXIDINE GLUCONATE 15 ML CUP MUCOUS MEM SCH ×2 (09:12→21:16)
[2020-09-08] MEDS: FAMOTIDINE 20 MG/2 ML VIAL IV SCH (09:13)
[2020-09-08] MEDS: CALCIUM ACETATE 667 MG TAB PO SCH ×3 (09:13→18:22)
[2020-09-08] MEDS: ZINC SULFATE 220 MG CAP PO SCH (09:13)
[2020-09-08] MEDS: CHOLECALCIFEROL 1,000 UNIT TAB PO SCH (09:13)
[2020-09-08] MEDS: ASCORBIC ACID 500 MG TAB PO SCH (09:13)
[2020-09-08] MEDS: DEXAMETHASONE SOD PHOSPHATE 10 MG/ML 1 ML VIAL IV SCH (09:13)
[2020-09-08] MEDS: SODIUM BICARBONATE TAB 650 MG TAB PO SCH ×2 (09:13→21:17)
[2020-09-08] MEDS: CEFEPIME 1 GM in SODIUM CHLORIDE 0.9% 50 ML IVPB SCH ×2 (09:14→21:17)
--- NOTE | 2020-09-08 10:56 | XR ---
EXAMINATION TYPE: XR chest 1V portable DATE OF EXAM: 09/08/2020 COMPARISON: 09/07/2020 INDICATION: Intubated, infiltrates TECHNIQUE: Single frontal view of the chest is obtained. FINDINGS: The heart size is normal. The pulmonary vasculature is somewhat prominent. Diffuse patchy infiltrates are present bilaterally. This may be focal in the left lower lobe. Finding s are similar to prior study 2 right-sided chest tubes remain present. Left-sided chest tube remains present. No pneumothorax is e vident. Endotracheal tip is above the mauro. Nasogastric tube transverses the thorax. IMPRESSION: 1. Patchy bilateral infiltrates. 2. Lines and catheters discussed above
[2020-09-08] MEDS: NOREPINEPHRINE 32 MG in SODIUM CHLORIDE 0.9% 218 ML IV SCH (11:06)
[2020-09-08] MEDS: CISATRACURIUM 200 MG in SODIUM CHLORIDE 0.9% 180 ML IV SCH (11:12)
--- NOTE | 2020-09-08 11:25 | P.PN ---
Subjective Progress Note Date: 09/08/20 Principal diagnosis: Right spontaneous pneumothorax status post 2 chest tubes Pneumomediastinum Left spontaneous pneumothorax Acute hypoxic respiratory failure Covid 19 pneumonia Type 2 diabetes mellitus Hypertension hypertensive cardiovascular disease Dehydration hypovolemia and hyponatremia Depression 09/08/2020, patient seen eval examined during the rounds labs reviewed medications reviewed care plan discussed, patient remains intubated sedated with propofol, chest tubes are they're not much change still have air leak is present, chest x-ray reviewed patient had a dialysis yesterday 2.5 L have been removed remains on vasopressors and full ventilator support, PEEP is 12 tidal volume is 500, with assist control mode, chest x-ray not much change, message left for the awaiting her response, FiO2 is 50% oxygen saturation is 91%, continue supportive care critical care time spent 35 minutes 09/07/2020, patient seen eval examined during the round FiO2 has been escalated to 60% patient does have occasional cough leak with intermittent drop in volumes, overall ventilator setting remains stable remains on assist control rate of 34 tidal volume 550, PEEP of 12 with an FiO2 of 60%, saturation remains 88-90%, patient likely will need the ET tube exchange, undergoing hemodialysis being planned for removal of 2.5 L, patient remains on the propofol drip and Nimbex has been discontinued, also on levo fed and insulin drip, hemodynamic status stable with a small amount of levo fed, chest x-ray reviewed, ET tube and OG tube as well as multiple chest tube was stable, no significant pneumothorax seen, the subcu emphysema and mediastinal emphysema remains unchanged, patient remains on broad-spectrum antibiotics for MSSA and Pseudomonas pneumonia 09/06/2020, patient seen eval examined during the rounds he remains medically paralyzed and sedated with propofol drip and Nimbex drip, patient remains on full ventilator support however able to decrease oxygen to 50%, patient is on assist control rate of 34 PEEP of 12, oxygen 50%, tidal volume 550, he is due for dialysis tomorrow, patient is still have intermittent clots suctioned from the mouth, appears to be old, bilateral stable chest tube chest x-ray from this morning reviewed care leak is present on the right side left-sided no air leak is present, patient remains on IV antibiotics and Decadron also on insulin drip levo fed drip, labs from today reviewed WBC is 20,000, hemoglobin remained stable 8.6, arterial blood gas revealed pH of 7.24 pCO2 [place] pO2 66, sodium 134 potassium 4.5 BUN/creatinine slightly improved 70 and 4.93, his LDH remains over 1100, C-reactive protein 54.9, ferritin also remains over 1100, chest x-ray reviewed stable PICC line NG tube and ET tube, 2 chest tube on the right side remains stable as well as the left side, no obvious significant pneumothorax seen, subcu and mediastinal emphysema continued to improve, patient is only on aspirin will be resumed on heparin drip most likely tomorrow 09/05/2020, patient seen eval examined during the rounds labs reviewed medications reviewed care plan discussed, bleeding through the endotracheal tube OG tube and oral have significantly improve old blood has been seen patient has been evaluated by hematology recommended to stop anticoagulation factor X A has been sent which will take another 3 or 4 days, for anticoagulation consider heparin restarting up in about 1-2 days, hemodynamics remains marginal patient continued to have intermittent episodes of hypertension, they were noted more during dialysis, current dialysis going on appears to be uneventful, patient remains on 80% oxygen with assist control rate of 34, tidal volume of 5 5012 of PEEP, patient remains on propofol Nimbex and insulin drip, the 3 chest tubes are in chest x-ray reviewed no significant pneumothorax seen minimal subcutaneous emphysema and mediastinal emphysema leaving the left chest tube the right-sided chest tube are leaking air, patient remains on tube feeding, patient remains on IV cephapime for the MSSA pneumonia, new double-lumen PICC line has been inserted, patient also on levo fed to keep systolic blood pressure is stable range, white cell count is 20,000 hemoglobin slowly declining is 9 today, arterial blood gases reviewed pH is 725 with pCO2 48 pO2 120, sodium was 133 potassium is 4.3 BUN/creatinine 75 and 5.11, patient has a mixed respiratory and metabolic acidosis 09/04/2020, patient seen eval examined, labs reviewed medications reviewed care plan discussed with the staff and primary care service as well, patient has a significant drop in volumes on ventilator significant air leak has been noted, ET tube has been changed by anesthesia, volume 7 improved however some desaturation noted requiring increase in oxygen saturation, patient however hemodynamically marginal is now requiring levo fed drip, right-sided chest tube continued to air leak significantly, sided chest tube was stable, noted however basal hip is still in, 09/03/2020, patient seen eval reexamined during the rounds labs reviewed medic ations reviewed care plan discussed, patient has significant amount of bleeding through the mouth with clumps and clots bright red in addition has been bleeding from the NG tube and ET tube as well, heparin has been stopped, next dose of Lovenox will hold it, repeat CBC is pending hemodynamics are stable, patient is scheduled to get a PICC line, currently patient is on assist control rate of 34 PEEP of 12 tidal volume of 550, 70% oxygen, saturation are 90-92%, the still have significant air leak from the right-sided apical chest tube at the bottom left-sided no significant air leak has been present, patient is getting IV cephapirin for the MSSA in the sputum, IV Diflucan and Flagyl has been admitted for suspicion of bowel perforation however the free air in the abdomen is due to thoracic air mediastinal and pleural escaped into the abdominal cavity, patient has been tolerating tube feed well, he remains medically paralyzed with propofol and Nimbex, white cell count is 18,000 yesterday CBC 10.7 today's labs are not done, PTT was 157, arterial blood gas reviewed pH is 7.2 with pCO2 53 oxygen is 70, patient continued to get hemodialysis per nephrology, 09/02/2020, patient seen eval examined during the rounds labs reviewed medications reviewed, remains sedated on propofol as well as Nimbex, full ventilator support, patient is a 80% oxygen sats are 90%, rate is 34 PEEP is 12, the CAT scan of the lungs consistent with ARDS, patient is getting hemodialysis currently, duplex ultrasound was back positive for bilateral DVT Lovenox increased to 60 mg twice a day, patient continued to have intermittent leak from the right-sided upper chest tube no significant leak is present on bottom 1, no leak has been seen from the left side 1, and cell count remains elevated with stable hemoglobin arterial blood gas shows respiratory acidosis with CO2 55, BUN/creatinine is 107/4.8, prognosis is guarded with likelihood of recovery is poor continue supportive care 09/01/2020, patient seen eval examined care plan discussed with the staff at length, patient remains on 100% oxygen assist control rate of 34 tidal volume of the 500 PEEP of 12, patient had second cycle hemodialysis today 500 mL was removed yesterday 1.5 L was removed, patient was found to have free air in the abdomen by a chest CT, no hollow viscus perforation have been noted, here appears to be thoracic air escaping into the abdominal cavity, patient has minimal pneumothorax on the right side with a stable chest tube in the pleural space draining air right upper chest tube continued to drain area continuously however lower chest tube intermittently, patient has extensive pneumomediastinum by CAT scan, left-sided pneumothorax significantly improved minimal or no air leak has been present on the left chest tube, white cell count is up to 22,000, ABG slightly improved and better pH is 7.21, potassium is 5.5, BUN/creatinine was up to 133 and 6.5 postdialysis labs are pending, patient is resumed back on tube feed post second dialysis sats have improved to 96% will titrate oxygen down as tolerated to keep saturation over 92%, critical care time spent 40 minutes 08/31/2020, patient seen eval examined during the rounds labs reviewed medications reviewed care plan discussed with the staff at length, remains med ically paralyzed with propofol and Nimbex drip, chest tubes is still significantly leaking on the right side lungs are well expanded though, minimum leak is present at the base, cardiothoracic surgery is have recommended to follow it up closely, no active intervention has been recommended, renal fun ction continued to get worse, patient has been getting diuresis with loop diuretics, would recommend to discontinue it patient remains on bicarb drip, along with anticoagulation, when setting remains stable assist control rate of 24 deep of 12 tidal volume 500 with 100% oxygen, saturation is just a 88-90%, continue broad-spectrum antibiotics and supportive care long-term prognosis poor will defer decision about dialysis to the family and renal services 08/30/2020, patient seen eval examined during the rounds medically sedated and paralyzed of propofol and Nimbex, on full ventilator support with assist control rate of 24 EP is 1200% oxygen which has been reduced to 90% now, saturation 91-92%, bilateral chest tubes are present minimal air leak on the left side, right-sided apical tube still having persistent nearly however distal intermittently, tolerating tube feed well, labs reviewed arterial blood gas reviewed as well along with radiographic findings patient BUN/creatinine continue to go up consistent with acute tubular necrosis likely related to covid 19 sepsis, arterial blood gases revealed pH is 7.18 pCO2 54 pO2 90, patient improved to 5.4, BUN/creatinine up to 132 and 5.86 08/29/2020, patient seen eval examined during the rounds labs reviewed medications reviewed care plan discussed with the staff including RN and respiratory therapy at length, saturation remains borderline however they were 90% in the morning came down to 84% increasing PEEP causes rapid increase in p eak air pressure and platue pressure up to 55 and 35, PEEP lowered to 12, patient remains on 100% oxygen with full assist control mode, arterial blood gases reviewed and significant metabolic acidosis appears to be related to acute renal failure, renal services have been consulted, patient appears to have nonoliguric acute renal failure likely acute tubular necrosis, patient remains gently hydrated to feed and given, remains afebrile, white cell count remains on higher side hemoglobin stable, arterial blood gases noted to be to be pH of 7.18 pCO2 53 pO2 70, 1 amp of bicarb along with bicarb drip have been initiated, potassium running on the higher side of 5.8, inflammatory parameters slightly down of thousand today LDH and C-reactive protein remains elevated, sputum for positive for a MSSA, vancomycin has been discontinued which may be contributing to acute kidney injury, patient remains on the propofol as well as Nimbex drip, patient has 2 chest tubes on the right side and one chest tube on the left side due to pneumomediastinum and bilateral pneumothorax they've been aching is mini mal on left and right bottom chest tube significant on apical chest tube however 08/28/2020, patient seen eval examined during the rounds labs reviewed medications reviewed, currently patient is on ventilator support PEEP of 10, 90% oxygen, assist control rate of 30, care blood gases reviewed, chest x-ray reviewed, minimal bilateral apical pneumothorax is present, stable left-sided chest U no air leak is present, right-sided apical tube continued to bubble significant air leak, bottom minimal, patient is medically paralyzed with propofol and Nimbex, laboratory data reviewed discussed at length with the staff 08/27/2020, patient seen eval examined during the rounds sedated and medically paralyzed, right-sided chest tube is still significantly and leak upper tube is present no significantly is seen in the 1 and also left side, labs and arterial blood gases reviewed and ventilator adjusted, chest U was stable on chest x-ray, apical very small pneumothorax, 08/26/2020, patient seen eval examined during the rounds labs reviewed medications reviewed, chest tube continue to gently air, patient intubated, on full ventilator support noted evidence of hypercapnia with increase the ventilation C orders, chest x-ray reviewed trace pneumothorax on the apex cannot be excluded, basal bilateral dense infiltrate with mediastinal emphysema, no significant pneumothorax seen, labs reviewed, critical care time 35 minutes 08/25/2020, patient seen eval examined during the rounds labs reviewed medications reviewed care plan discussed with the staff, patient had a respiratory arrest earlier this morning during which he pulled out his BiPAP machine oxygen saturation dropped down into 20s, he also tried to pull out his chest tube, during that process he was intubated, postintubation chest x-ray shows minimal pneumothorax on the right side left-sided pneumothorax or anterior posterior cannot be excluded, extensive pneumomediastinum is present, patient currently and placed on the propofol at 75 mics was very restless and agitated, tachypneic tachycardic and eventually medically paralyzed with Nimbex drip, respiratory status slightly more stable patient is more calm and now hemody namics stable, has been getting IV fluids, will need a chest tube on the the left side to avoid tension pneumothorax, keep the 2 chest tube on the right side 1 direct towards the apex appears to be stable however one at the base of the lung is still in, dense bilateral infiltrate are present, white cell count is up to 34,000, arterial blood gas and chest x-ray reviewed consistent with respiratory and metabolic acidosis, with severe hypoxia requiring PEEP with high ventilatory rate 08/24/2020, patient seen eval examined during the rounds labs reviewed medications reviewed sitting upright on the bed, remains on BiPAP with 100% oxygen, saturation 95%, patient desaturated into goes on the right side down and intermittently during supine posture, however do better with left side up, and sitting up as well, chest x-ray from today reviewed pneumothorax recurred on the right side in spite of 2 chest tube aiming towards the apex and the base with significant air leak, small left apical pneumothorax however is stable, patient is awaiting evaluation from thoracic surgery for possible VATS or transfer to tertiary care center, left side and INR will put a small bore pigtail catheter at the apex later on this morning, patient remains afebrile slightly tachycardic tachypneic, inflammatory parameters still up, prognosis is guarded care plan discussed directly and indirectly with primary service, staff, cardiothoracic and IR 08/23/2020, patient seen eval reexamined during the rounds labs reviewed medications reviewed, oxygen saturation remained stable, however patient couldn't tolerate off of BiPAP, he remains on BiPAP. All, chest x-ray reviewed, patient hasn't to right-sided chest tube air leak is present from both, left- sided residual small pneumothorax present along with subcutaneous emphysema and mediastinal emphysema, interventional radiology could not do a chest tube on the left side, they are planning to do it tomorrow, white cell count decreased to 19,000, d-dimer is still elevated inflammatory parameters elevated consistent with cytokine nita 08/22/2020, patient seen eval reexamined significant desaturation was more noted, sats dropped down to 55-70% spontaneously comes right back up though currently on 93% BiPAP, Semiprone with the right side up patient cannot tolerate airvo, desaturated easily remains tachypneic tachycardic hemodynamic status however remains stable, chest x-ray findings reviewed in spite of right-sided chest tube and persistent air leak there is a persistent spontaneous pneumothorax fairly large on the right side and small apical left sided spontaneous pneumothorax noted with pneumomediastinum and bilateral dense infiltrate at the bases, thoracic surgery has been consulted, patient may need an another chest tube on the right side versus VATS and preferably and of the small chest U was on the left side, will defer to expertise of thoracic surgery, labs reviewed medications reviewed care plan discussed at length with the staff 08/21/2020, patient seen eval examined during the rounds sitting upright in chair breathing slightly better oxygen saturation is 87-88%, patient is on high flow oxygen along with the nonrebreather mass, tachypneic tachycardic blood pressure is slightly high, patient has a right-sided chest tube is still leaking air, chest x-ray reviewed bilateral infiltrate is present with residual pneumothorax and subcu emphysema, labs from today reviewed white cell count remains elevated 20,000, renal functions stable, will attempt semi-prone with right side up, we will obtain an transfuse convalescent plasma 08/20/2020, patient seen eval examined during the rounds a labs reviewed medications reviewed this morning patient had problems with agitated anxiety and a prehension, oxygen saturation dropped down into 70s, rapid response was called and stat chest x-ray revealed presence of pneumothorax which is significant on the right side as well they may be a small mediastinal emphysema on the left side as well, patient has been made semi-prone with that oxygen saturation 100% nonrebreather mask improved to 92% patient is more calm, he remains afebrile temperature is 98.3 respiratory rate and mid to high 20s, weight is oxygen saturation 94%, chest x-ray finding reviewed 08/19/2020, patient seen eval examined during the rounds labs reviewed medications reviewed care plan discussed, patient is sitting upright on the bed on 100% nonrebreather mask, saturation remains marginal about 88%, remains afebrile, slightly anxious, advised based he hasn't to be on prone position as much as possible, labs reviewed white cell count is 17,000, patient remains on Remdesivir, Decadron, Lovenox August 18 2020, patient seen eval examined during the rounds is still on 5 L high flow oxygen, denies any chest pain breathing difficulties present, denies any cough or sputum production labs chest x-ray reviewed This is a 59-year-old male who has history of diabetes hypertension hypertensive cardiovascular disease and not feeling well for the last 5-6 days with cough and increased shortness of breath started with a sore throat, patient admitted into the hospital was spiking fever up to 101, oxygen saturation 90%, patient already has been started on REM doesn't wear and Decadron, his initial admit x-ray cystoscopy right midlung field and left lower lid feeding infiltrate patient gradually got worse initially has been on room air oxygen requirement keep on going up to 3 L and subsequently on 5 L high flow oxygen with that oxygen saturation is 93%, critical care time spent 35 minutes Objective - Vital Signs Vital signs: Vital Signs Temp 98.0 F 09/08/20 04:00 Pulse 82 09/08/20 07:15 Resp 22 09/08/20 07:15 BP 134/62 09/08/20 05:15 Pulse Ox 91 L 09/08/20 07:15 Intake & Output 09/07/20 09/08/20 09/08/20 18:59 06:59 18:59 Intake Total 5809.738 0309.884 280.399 Output Total 2505 55 0 Balance -3373.593 6436.884 280.399 Weight 124.5 kg 120.6 kg Intake: IV 476 340 13 Cefepime 1 gm In Sodium 50 50 Chloride 0.9% 50 ml @ 12. 5 mls/hr IVPB Q12HR [facility] Rx#:[id number] Normal Saline PRessure 36 60 3 bag metroNIDAZOLE-NS PMX 500 200 100 mg In Saline 1 100ml.bag @ 100 mls/hr IVPB Q8HR [facility] Rx#:[id number] sodium chloride @ 10ml hr 190 130 10 Intake, IV Titration 393.560 518.884 247.399 Amount Insulin Regular 100 unit 47.958 29.155 0 In Sodium Chloride 0.9% 100 ml @ Per Protocol IV .Q0M [facility] Rx#:[id number] Norepinephrine 32 mg In 41.809 62.737 Sodium Chloride 0.9% 218 ml @ 0.05 MCG/KG/MIN 2. 866 mls/hr IV .Q24H [facility] Rx#:[id number] propofoL 1,000 mg In 303.793 489.729 184.662 Empty Bag 1 bag @ Titrate IV .Q0M [facility] Rx#: [id number] Tube Feeding 332 240 20 Other 150 60 Output: Chest Tube Drainage 0 Chest Tube Right 0 Chest Tube Right Upper 0 Left Upper Anterior Chest 0 Urine 5 55 0 Hemodialysis 2500 Other: Voiding Method Indwelling Catheter Indwelling Catheter ABP, PAP, CO, CI - Last Documented Arterial Blood Pressure 98/45 - Exam - Constitutional General appearance: Intubated medically paralyzed on full ventilator support - EENT Eyes: EOMI, PERRLA Ears: bilateral: normal - Neck Neck: normal ROM Carotids: bilateral: upstroke normal Thyroid: bilateral: normal size - Respiratory Respiratory: bilateral: diminished - Cardiovascular Rhythm: regular Heart sounds: normal: S1, S2 - Gastrointestinal General gastrointestinal: normal bowel sounds - Neurologic Neurologic: CNII-XII intact - Musculoskeletal Musculoskeletal: gait normal, generalized weakness, strength equal bilaterally - Psychiatric Psychiatric: Appears, now post medical paralysis - Labs CBC & Chem 7: 09/08/20 04:25 09/08/20 04:25 Labs: Abnormal Lab Results - Last 24 Hours (Table) 09/07/20 09/07/20 09/07/20 Range/Units 12:03 13:39 15:26 WBC (3.8-10.6) k/uL RBC (4.30-5.90) m/uL Hgb (13.0-17.5) gm/dL Hct (39.0-53.0) % Fibrinogen (200-500) mg/dL ABG pH (7.35-7.45) ABG pO2 (83-108) mmHg ABG HCO3 (21-25) mmol/L ABG O2 Saturation (94-97) % Sodium (137-145) mmol/L Carbon Dioxide (22-30) mmol/L BUN (9-20) mg/dL Creatinine (0.66-1.25) mg/dL Glucose (74-99) mg/dL POC Glucose (mg/dL) 172 H 172 H 155 H (75-99) mg/dL Calcium (8.4-10.2) mg/dL 09/07/20 09/07/20 09/07/20 Range/Units 18:32 20:29 20:30 WBC (3.8-10.6) k/uL RBC (4.30-5.90) m/uL Hgb (13.0-17.5) gm/dL Hct (39.0-53.0) % Fibrinogen 540 H (200-500) mg/dL ABG pH (7.35-7.45) ABG pO2 (83-108) mmHg ABG HCO3 (21-25) mmol/L ABG O2 Saturation (94-97) % Sodium (137-145) mmol/L Carbon Dioxide (22-30) mmol/L BUN (9-20) mg/dL Creatinine (0.66-1.25) mg/dL Glucose (74-99) mg/dL POC Glucose (mg/dL) 153 H 138 H (75-99) mg/dL Calcium (8.4-10.2) mg/dL 09/07/20 09/07/20 09/08/20 Range/Units 22:02 23:39 01:46 WBC (3.8-10.6) k/uL RBC (4.30-5.90) m/uL Hgb (13.0-17.5) gm/dL Hct (39.0-53.0) % Fibrinogen (200-500) mg/dL ABG pH (7.35-7.45) ABG pO2 (83-108) mmHg ABG HCO3 (21-25) mmol/L ABG O2 Saturation (94-97) % Sodium (137-145) mmol/L Carbon Dioxide (22-30) mmol/L BUN (9-20) mg/dL Creatinine (0.66-1.25) mg/dL Glucose (74-99) mg/dL POC Glucose (mg/dL) 144 H 136 H 143 H (75-99) mg/dL Calcium (8.4-10.2) mg/dL 09/08/20 09/08/20 09/08/20 Range/Units 03:29 04:25 04:25 WBC 17.2 H (3.8-10.6) k/uL RBC 2.84 L (4.30-5.90) m/uL Hgb 8.1 L (13.0-17.5) gm/dL Hct 24.5 L (39.0-53.0) % Fibrinogen (200-500) mg/dL ABG pH (7.35-7.45) ABG pO2 (83-108) mmHg ABG HCO3 (21-25) mmol/L ABG O2 Saturation (94-97) % Sodium 130 L (137-145) mmol/L Carbon Dioxide 20 L (22-30) mmol/L BUN 84 H (9-20) mg/dL Creatinine 5.95 H (0.66-1.25) mg/dL Glucose 132 H (74-99) mg/dL POC Glucose (mg/dL) 132 H (75-99) mg/dL Calcium 7.1 L (8.4-10.2) mg/dL 09/08/20 09/08/20 09/08/20 Range/Units 05:11 07:01 07:57 WBC (3.8-10.6) k/uL RBC (4.30-5.90) m/uL Hgb (13.0-17.5) gm/dL Hct (39.0-53.0) % Fibrinogen (200-500) mg/dL ABG pH 7.25 L (7.35-7.45) ABG pO2 71 L (83-108) mmHg ABG HCO3 20 L (21-25) mmol/L ABG O2 Saturation 92.0 L (94-97) % Sodium (137-145) mmol/L Carbon Dioxide (22-30) mmol/L BUN (9-20) mg/dL Creatinine (0.66-1.25) mg/dL Glucose (74-99) mg/dL POC Glucose (mg/dL) 156 H 157 H (75-99) mg/dL Calcium (8.4-10.2) mg/dL Assessment and Plan Assessment: Multiorgan failure including renal respiratory hematopoietic and cardiovascular Pseudomonas pneumonia Acute renal failure due to acute tubular necrosis related to Covid 19 pneumonia Mediastinal and bilateral pneumothorax Acute hypoxic and hypercapnic respiratory failure Status post respiratory arrest patient intubated on full ventilator support lung protective strategy MSSA pneumonia Bilateral DVT Acute kidney injury likely related to acute tubular necrosis as well as vancomycin associated renal damage on daily dialysis Free air in the abdomen due to mediastinal emphysema and pneumothorax Acute hypoxic respiratory failure Covid 19 pneumonia and ARDS related to that Type 2 diabetes mellitus Hypertension hypertensive cardiovascular disease Dehydration hypovolemia and hyponatremia Depression Overall prognosis is very poor Plan: Ventilator support adjustment as needed, continue titrated oxygen down Heparin drip can be started tomorrow once cleared by hematology service Anticoagulation has been stopped per recommendation of hematology awaiting factor X A levels Maintain bilateral chest tube Hemo-dialysis is in progress Cephapirin for MSSA and Pseudomonas pneumonia Continue to follow sugars closely, continue insulin drip Vasopressors as needed Medical paralysis Status post Convalescent plasma Continue Decadron and status post IV Remdesivir for 5 days respectively Further plan of care as per clinical response of the patient, overall prognosis is guarded with likelihood of recovery is poor Multiorgan failure Time with Patient: Greater than 30
[2020-09-08 12:04] LABS: Glucose,Whole Blood 163 mg/dL (75-99)
--- NOTE | 2020-09-08 12:36 | P.PN ---
Subjective Progress Note Date: 09/08/20 CHIEF COMPLAINT: Free air noted on CT of chest HISTORY OF PRESENT ILLNESS: Patient is being followed for the pneumoperitoneum which is due to patient's pneumothorax. Patient remains intubated, sedated and paralyzed in ICU. He still requiring Levophed. Afebrile WBC 17 point PHYSICAL EXAM: VITAL SIGNS: Reviewed. GENERAL: Well-developed in no acute distress. HEENT: No sclera icterus. Extraocular movements grossly intact. Moist buccal mucosa. Head is atraumatic, normocephalic. ABDOMEN: Soft. Nondistended. Nontender. NEUROLOGIC: Intubated and sedated ASSESSMENT: 1. Pneumoperitoneum likely due to pneumothorax 2. Covid 19 infection 3. Bilateral pneumothoraces status post bilateral chest tube placement 4. Acute kidney injury secondary to ATN and vancomycin toxicity. Patient has been started on hemodialysis during this admission 5. Acute hypoxic and hypercapnic respiratory failure 6. Bilateral lower extremity DVT PLAN: -Continue supportive care -No surgical intervention planned Physician Family Therapist note has been reviewed by physician. Signing provider agrees with the documented findings, assessment, and plan of care. Objective - Vital Signs Vital signs: Vital Signs Temp 98.5 F 09/08/20 12:00 Pulse 84 09/08/20 12:00 Resp 34 H 09/08/20 12:00 BP 134/62 09/08/20 05:15 Pulse Ox 92 L 09/08/20 12:00 Intake & Output 09/07/20 09/08/20 09/08/20 18:59 06:59 18:59 Intake Total 5543.755 0619.884 692.128 Output Total 2505 55 6 Balance -2387.307 7750.884 686.128 Weight 124.5 kg 120.6 kg Intake: IV 476 340 235 Cefepime 1 gm In Sodium 50 50 50 Chloride 0.9% 50 ml @ 12. 5 mls/hr IVPB Q12HR [facility] Rx#:[id number] Normal Saline PRessure 36 60 15 bag metroNIDAZOLE-NS PMX 500 200 100 100 mg In Saline 1 100ml.bag @ 100 mls/hr IVPB Q8HR MARJAN Rx#:[id number] sodium chloride @ 10ml hr 190 130 70 Intake, IV Titration 393.560 518.884 267.128 Amount Insulin Regular 100 unit 47.958 29.155 19.729 In Sodium Chloride 0.9% 100 ml @ Per Protocol IV .Q0M [facility] Rx#:[id number] Norepinephrine 32 mg In 41.809 62.737 Sodium Chloride 0.9% 218 ml @ 0.05 MCG/KG/MIN 2. 866 mls/hr IV .Q24H [facility] Rx#:[id number] propofoL 1,000 mg In 303.793 489.729 184.662 Empty Bag 1 bag @ Titrate IV .Q0M [facility]JAN Rx#: [id number] Tube Feeding 332 240 100 Other 150 60 90 Output: Chest Tube Drainage 0 0 Chest Tube Right 0 0 Chest Tube Right Upper 0 0 Left Upper Anterior Chest 0 0 Urine 5 55 6 Hemodialysis 2500 Other: Voiding Method Indwelling Catheter Indwelling Catheter Indwelling Catheter # Bowel Movements 1 ABP, PAP, CO, CI - Last Documented Arterial Blood Pressure 131/53 - Labs CBC & Chem 7: 09/08/20 04:25 09/08/20 04:25 Labs: Abnormal Lab Results - Last 24 Hours (Table) 09/07/20 09/07/20 09/07/20 Range/Units 13:39 15:26 18:32 WBC (3.8-10.6) k/uL RBC (4.30-5.90) m/uL Hgb (13.0-17.5) gm/dL Hct (39.0-53.0) % Fibrinogen (200-500) mg/dL ABG pH (7.35-7.45) ABG pO2 (83-108) mmHg ABG HCO3 (21-25) mmol/L ABG O2 Saturation (94-97) % Sodium (137-145) mmol/L Carbon Dioxide (22-30) mmol/L BUN (9-20) mg/dL Creatinine (0.66-1.25) mg/dL Glucose (74-99) mg/dL POC Glucose (mg/dL) 172 H 155 H 153 H (75-99) mg/dL Calcium (8.4-10.2) mg/dL 09/07/20 09/07/20 09/07/20 Range/Units 20:29 20:30 22:02 WBC (3.8-10.6) k/uL RBC (4.30-5.90) m/uL Hgb (13.0-17.5) gm/dL Hct (39.0-53.0) % Fibrinogen 540 H (200-500) mg/dL ABG pH (7.35-7.45) ABG pO2 (83-108) mmHg ABG HCO3 (21-25) mmol/L ABG O2 Saturation (94-97) % Sodium (137-145) mmol/L Carbon Dioxide (22-30) mmol/L BUN (9-20) mg/dL Creatinine (0.66-1.25) mg/dL Glucose (74-99) mg/dL POC Glucose (mg/dL) 138 H 144 H (75-99) mg/dL Calcium (8.4-10.2) mg/dL 09/07/20 09/08/20 09/08/20 Range/Units 23:39 01:46 03:29 WBC (3.8-10.6) k/uL RBC (4.30-5.90) m/uL Hgb (13.0-17.5) gm/dL Hct (39.0-53.0) % Fibrinogen (200-500) mg/dL ABG pH (7.35-7.45) ABG pO2 (83-108) mmHg ABG HCO3 (21-25) mmol/L ABG O2 Saturation (94-97) % Sodium (137-145) mmol/L Carbon Dioxide (22-30) mmol/L BUN (9-20) mg/dL Creatinine (0.66-1.25) mg/dL Glucose (74-99) mg/dL POC Glucose (mg/dL) 136 H 143 H 132 H (75-99) mg/dL Calcium (8.4-10.2) mg/dL 09/08/20 09/08/20 09/08/20 Range/Units 04:25 04:25 05:11 WBC 17.2 H (3.8-10.6) k/uL RBC 2.84 L (4.30-5.90) m/uL Hgb 8.1 L (13.0-17.5) gm/dL Hct 24.5 L (39.0-53.0) % Fibrinogen (200-500) mg/dL ABG pH 7.25 L (7.35-7.45) ABG pO2 71 L (83-108) mmHg ABG HCO3 20 L (21-25) mmol/L ABG O2 Saturation 92.0 L (94-97) % Sodium 130 L (137-145) mmol/L Carbon Dioxide 20 L (22-30) mmol/L BUN 84 H (9-20) mg/dL Creatinine 5.95 H (0.66-1.25) mg/dL Glucose 132 H (74-99) mg/dL POC Glucose (mg/dL) (75-99) mg/dL Calcium 7.1 L (8.4-10.2) mg/dL 09/08/20 09/08/20 09/08/20 Range/Units 07:01 07:57 12:01 WBC (3.8-10.6) k/uL RBC (4.30-5.90) m/uL Hgb (13.0-17.5) gm/dL Hct (39.0-53.0) % Fibrinogen (200-500) mg/dL ABG pH (7.35-7.45) ABG pO2 (83-108) mmHg ABG HCO3 (21-25) mmol/L ABG O2 Saturation (94-97) % Sodium (137-145) mmol/L Carbon Dioxide (22-30) mmol/L BUN (9-20) mg/dL Creatinine (0.66-1.25) mg/dL Glucose (74-99) mg/dL POC Glucose (mg/dL) 156 H 157 H 163 H (75-99) mg/dL Calcium (8.4-10.2) mg/dL
--- NOTE | 2020-09-08 12:46 | PN ---
PROGRESS NOTE Patient is seen for followup for acute kidney injury. Patient remains on dialysis. He was dialyzed yesterday as well and we had about 2.5 L of fluid removed. No significant change today, however. is considering comfort care measures. PHYSICAL EXAMINATION: On examination today, this was discussed with nursing staff as patient is COVID- positive. vital signs are reviewed. Blood pressure was 114/55, heart rate 84 per minute, patient is afebrile. He has edema in lower extremities, tolerating his tube feedings. He is sedated. FiO2 at 50%, O2 SATs about 92%. LABS: Show sodium 130, potassium 4.4, chloride 102, CO2 is 20, BUN 84, creatinine 5.95, hemoglobin 8.1 g/dL. ASSESSMENT: 1. Acute kidney injury, ATN, oliguric and hemodialysis dependent. Patient is scheduled for hemodialysis today. However, awaiting decision regarding comfort care. 2. COVID-19 pneumonia and sepsis. 3. Acute hypoxic respiratory failure currently on the vent, associated with underlying COVID infection and pneumonia. 4. Hyperkalemia, associated with acute kidney injury, now improved. 5. Pneumothorax, status post bilateral chest tube. 6. Metabolic acidosis associated with renal failure, improved with dialysis. PLAN: Hold hemodialysis until later on today as patient's is considering comfort care options. MMODL / IJN: [id number] /
[2020-09-08 13:37] LABS: Glucose,Whole Blood 175 mg/dL (75-99)
--- NOTE | 2020-09-08 15:20 | P.PN ---
Subjective Covid 19 infection/pneumonia 53-year-old male is admitted for Covid19 pneumonitis, sepsis. Patient went into hypoxemia last night ended up on 3 L of oxygen.overall feeling little bit better. 08/17/2020 Patient's is pretty status is worse and patient is not doing well in spite of high flow nasal cannula oxygen along with 100% many mask. Patient is being started on Remdesivir. Patient is still complaining of shortness of breath Constitutional: Denied any fatigue denied any fever. Cardio vascular: denied any chest pain, palpitations Gastrointestinal denied any nausea vomiting Pulmonary: As mentioned above Neurologic denied any new focal deficits All inpatient medications were reviewed and appropriate changes in these medications as dictated in the interval history and assessment and plan. 08/18/2020 Patient is seen and evaluated in follow-up and continues to be maintained on high flow oxygen via nasal cannula. Infectious disease is following. Patient continues to have shortness of breath especially with exertion. Discussed with the patient about increasing activity and getting up to the commode and chair. Patient states he feels slightly better today although continues to be extremely dyspneic. Review of systems: Constitutional: No reports of fatigue, fever, or chills Cardiovascular: No reports of chest pain or palpitations Respiratory: Reports shortness of breath with occasional cough GI: No reports of nausea, vomiting, or diarrhea : No reports of dysuria or retention Neurovascular: No reports of weakness or numbness All medications have been reviewed 08/19/2020 Patient is seen and evaluated in follow-up with no real improvement of respiratory status. Patient continues to sat in the low 80s and drops quickly without oxygen. He she is currently maintained on 15 L high flow oxygen along with a nonrebreather over that and was able to obtain 90% oxygen saturation. Patient is currently sitting up at the bedside asking when he can go home. Discussed with the patient at length about respiratory status and his inability to come off oxygen at this time. White blood count elevated at 17.9 from yest erday. BMP within normal limits although blood glucose levels continue to be elevated. Patient is maintained on sliding scale along with long-acting and oral antidiabetic medications. Will continue to monitor as the dexamethasone may be a component of elevated glucose levels. Discussed with the patient about incentive spirometer and instructed to use at least 10 times every hour while awake. Patient currently denies any chest pain or palpitations. Patient is afebrile. No reports of nausea or vomiting patient states he does not have much of an appetite although is tolerating diet. 08/20/2020 Patient is seen in follow-up and continues to be on a nonrebreather and 15 L high flow oxygen and was found to be extremely anxious and hypoxic with saturations in the 70s earlier this morning Repeat chest x-ray done today shows right side pneumothorax along with pneumo mediastinum, subcutaneous emphysema. Pulmonary Dr. López is following and will be placing a chest tube this afternoon. Lovenox dose will be adjusted once chest tube is placed. White blood count elevated at 20.7. D-dimer was found to be 13.05. Review of systems: Constitutional: Anxious, no reports of fever, or chills Cardiovascular: No reports of chest pain or palpitations Respiratory: reports worsening shortness of breath and difficulty breathing GI: No reports of nausea, vomiting, or diarrhea : No reports of dysuria or retention Neurovascular: No reports of weakness or numbness All medications have been reviewed 08/21/2020 Patient is seen and evaluated and follow-up currently remains in the ICU as patient underwent right chest tube placement with Dr. López yesterday due to right pneumothorax with pneumomediastinum and subcutaneous emphysema. Patient is currently sitting up in the chair and on a nonrebreather and high flow oxygen at flow rate of 60% with an FiO2 of 85%. Patient is currently at 89% oxygen saturation. Patient is also receiving a unit of fresh frozen plasma and is maintained on Lovenox. Blood sugars continue to be elevated and will continue to monitor with long-acting along with sliding scale. White Blood count 20.2. Chest x-ray this morning shows a stable right pneumothorax with right-sided chest tube noted and stable subcutaneous emphysema. Patient instructed to continue with incentive spirometer and semi-prone position with the right side up. Patient is somewhat anxious and agitated with remaining hospitalized. No reports of chest pain or palpitations. Denies any nausea or vomiting and is tolerating diet. Patient is currently afebrile. 08/22/2020 Patient has 2 chest tubes on the right side. Patient remains on airvo, there was a persistent leak in the previous chest tube. 08/23/2020 Patient the has bilateral pneumothorax right side has 2 chest tubes attached to wall suction and left-sided pneumothorax is 10-15% which is being monitored, cardiothoracic surgery evaluated the patient. Patient is presently on Bipap. Review of systems: Unable to obtain due to his clinical condition did All inpatient medications were reviewed and appropriate changes in these medications as dictated in the interval history and assessment and plan. 08/24/2020 Patient currently remains on a BiPAP and has 2 right-sided chest tubes and awaiting for possible pigtail once more stabilized. Patient is currently unable to tolerate travel to [place] for interventional radiology to place the catheter. Chest x-ray today shows a moderate size recurrence of the right pneumothorax along with a small left apical pneumo that appears to be stable along with diffuse patchy infiltrates within bilateral lung ulloa. Pulmonary following closely. Discussed with pulmonary about the possibility of a transfer to a tertiary care center if patient's clinical status continues to deteriorate and unable to obtain the left side pigtail catheter. Remains in the ICU with close monitoring. Patient continues on IV antibiotics in the form of cefepime and vancomycin along with zinc, Lovenox, and dexamethasone. Review of systems: Constitutional: Reports fatigue, anxious, no reports of fever, or chills Cardiovascular: No reports of chest pain or palpitations Respiratory: Reports continued shortness of breath and cough GI: No reports of nausea, vomiting, or diarrhea : No reports of dysuria or retention Neurovascular: Reports weakness, no reports of numbness All medications have been reviewed 08/25/2020 Patient is seen and evaluated in follow-up and continues to be closely monitored in the ICU. Patient had a brief period Of respiratory arrest with attempts to pull out chest tubes after removing the BiPAP and was ultimately intubated. Patient was placed on sedation and appears much more calm at this time. Patient currently awaiting to receive a left side chest tube for the small pneumothorax with pulmonary. Patient continues to have 2 right-sided chest tubes at this time. White blood count elevated Review of systems: Unable to assess as patient is currently intubated and sedated. 08/26/20 Patient seen in follow up current remains in the ICU being closely monitored. Repeat chest xray today shows continued diffuse bilateral air space infiltrates with no pneumothoraces visible. Patient continues to have 3 chest tubes and intubated. Prognosis is poor. Code status discussed with the Bette Flores today and she would like him comfortable and made a no code. Consult placed to case management for hospice consult as she would like information about hospice and comfort measures. 08/27/2020 Patient is currently on back on ventilator. Sedated and paralyzed. Patient does have chest tubes in place. Chest x-ray showed stable portable chest. Bilateral chest tubes are redemonstrated. Bilateral less than 10% pneumothorax seen bilaterally. Laboratory data showed WBC 28.6, hemoglobin 13.0, platelets 157 Lymphocyte count 0.2 ABG showed pH of 7.19, PCO2 61 and PO2 6390% FiO2 Sodium 136, potassium 5.7 and chloride 108, BUN 64 and creatinine 3.17 Significantly elevated inflammatory markers. Patient is being continued on antibiotics in the form of cefepime and vancomycin. Currently on dexamethasone and completed remdesivir course. Continued on insulin dosing. 09/05/2020 Patient is currently in the MICU sedated and intubated. Patient was having bleeding through the endotracheal tube and OG tube. Anticoagulation is on hold at this time. Patient is currently 80% FiO2 and assist control. Chest x-ray showed no significant pneumothorax seen. Minimal subcutaneous emphysema and mediastinal emphysema leaving the left chest tube. Right chest tube without leaking air. Patient is tolerating tube feeding. Currently on antibiotics in the form of IV cefepime for MSSA pneumonia. Patient underwent hemodialysis today. 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 Currently on FiO2 60%. Intubated and sedated. Patient underwent hemodialysis yesterday with 2.5 L ultrafiltration. Tolerating tube feeding. Continued on Levophed. Anticoagulation is on hold due to bleeding from the ET tube and Hallman catheter. Hematology has seen the patient and bleeding dialysis felt to be mostly due to enhanced anticoagulant effect of Lovenox and also platelet dysfunction due to renal failure on hemodialysis. Antifactor 10-year has been ordered and is currently pending.. Chest x-ray showed diffuse interstitial infiltrates remain. Airspace disease in the right lower lobe show some improvement. Bilateral chest tubes. Slight improvement in the patient's subcutaneous emphysema as well. Laboratory data showed WBC 20.1 hemoglobin 8.6 Sodium 134, potassium 4.5, BUN 70 and creatinine 4.93 and inflammatory markers are elevated. Patient is being continued on antibiotics in the form of cefepime and Flagyl. Sputum cultures grew Pseudomonas and Kristen albicans. Repeat blood cultures have been negative so far. 09/07/2020 Patient is undergoing hemodialysis today. Patient agrees to have right-sided to 2 chest tubes and left-sided 1 chest tube. Patient remains on propofol drip and Nimbex. Patient the is on insulin drip for Levothroid drip sputum cultures are positive for MSSA and pseudomonas, Kristen albicans. Infectious disease is following the patient as well. Patient is presently on cefepime and metronidazole. 09/08/2020 Patient can use to have some bleeding in the oral cavity. Patient's anticoagulation was discontinued and patient was on Lovenox and patient the head renal dysfunction because of which patient ended up bleeding quite a bit. Patient remains on same antibiotics all 3 chest tubes remain in place. Patient does have elevated blood sugars patient is receiving Nepro via via NG tube. Patient is also on systemic steroids increasing his blood sugars. Patient will be started on Levemir will try to wean him off IV insulin. Patient will also be continued on sliding scale. While titrating his insulin patient blood sugars are expected to stay high. is probably more appropriate for placement to select specialty, if not comfort care. Patient didn't undergo hemodialysis today he at Current medications reviewed. Review of systems: Unable to obtain as patient is intubated and sedated. Objective - Vital Signs Vital signs: Vital Signs Temp 98.5 F 09/08/20 12:00 Pulse 82 09/08/20 14:00 Resp 40 H 09/08/20 14:00 BP 134/62 09/08/20 05:15 Pulse Ox 94 L 09/08/20 14:00 Intake & Output 09/07/20 09/08/20 09/08/20 18:59 06:59 18:59 Intake Total 8949.331 3917.884 761.128 Output Total 2505 55 20 Balance -1109.823 1953.884 741.128 Weight 124.5 kg 120.6 kg Intake: IV 476 340 304 Cefepime 1 gm In Sodium 50 50 50 Chloride 0.9% 50 ml @ 12. 5 mls/hr IVPB Q12HR [facility] Rx#:[id number] Normal Saline PRessure 36 60 24 bag metroNIDAZOLE-NS PMX 500 200 100 100 mg In Saline 1 100ml.bag @ 100 mls/hr IVPB Q8HR [facility] Rx#:[id number] sodium chloride @ 10ml hr 190 130 130 Intake, IV Titration 393.560 518.884 267.128 Amount Insulin Regular 100 unit 47.958 29.155 19.729 In Sodium Chloride 0.9% 100 ml @ Per Protocol IV .Q0M [facility] Rx#:[id number] Norepinephrine 32 mg In 41.809 62.737 Sodium Chloride 0.9% 218 ml @ 0.05 MCG/KG/MIN 2. 866 mls/hr IV .Q24H [facility] Rx#:[id number] propofoL 1,000 mg In 303.793 489.729 184.662 Empty Bag 1 bag @ Titrate IV .Q0M [facility] Rx#: [id number] Tube Feeding 332 240 100 Other 150 60 90 Output: Chest Tube Drainage 0 0 Chest Tube Right 0 0 Chest Tube Right Upper 0 0 Left Upper Anterior Chest 0 0 Urine 5 55 20 Hemodialysis 2500 Other: Voiding Method Indwelling Catheter Indwelling Catheter Indwelling Catheter # Bowel Movements 1 ABP, PAP, CO, CI - Last Documented Arterial Blood Pressure 138/57 - Exam GENERAL: The patient is intubated and sedated and appears to be in no acute distress. HEENT: Pupils are round and equally reacting to light. EOMI. No scleral icterus. No conjunctival pallor. Normocephalic, atraumatic. No pharyngeal erythema. No thyromegaly. ET tube noted CARDIOVASCULAR: S1 and S2 present. No murmurs, rubs, or gallops. PULMONARY: Bilateral scattered rhonchi, no wheezing noted diminished air entry bilaterally worse on the right, tachypneic, 2 chest tubes noted on the right side and one on the left ABDOMEN: Soft, nontender, nondistended, normoactive bowel sounds. No palpable organomegaly. MUSCULOSKELETAL: No joint swelling or deformity. EXTREMITIES: No cyanosis, clubbing, or pedal edema. NEUROLOGICAL: Unable to fully assess as patient is intubated and sedated SKIN: No rashes. Note: Because of COVID 19 isolation, some of the history and physical exam findings are indirect and obtained from nursing staff, and other physician examinations to avoid unnecessary contact with the patient. - Labs CBC & Chem 7: 09/08/20 04:25 09/08/20 04:25 Labs: Abnormal Lab Results - Last 24 Hours (Table) 09/07/20 09/07/20 09/07/20 Range/Units 15:26 18:32 20:29 WBC (3.8-10.6) k/uL RBC (4.30-5.90) m/uL Hgb (13.0-17.5) gm/dL Hct (39.0-53.0) % Fibrinogen (200-500) mg/dL ABG pH (7.35-7.45) ABG pO2 (83-108) mmHg ABG HCO3 (21-25) mmol/L ABG O2 Saturation (94-97) % Sodium (137-145) mmol/L Carbon Dioxide (22-30) mmol/L BUN (9-20) mg/dL Creatinine (0.66-1.25) mg/dL Glucose (74-99) mg/dL POC Glucose (mg/dL) 155 H 153 H 138 H (75-99) mg/dL Calcium (8.4-10.2) mg/dL 09/07/20 09/07/20 09/07/20 Range/Units 20:30 22:02 23:39 WBC (3.8-10.6) k/uL RBC (4.30-5.90) m/uL Hgb (13.0-17.5) gm/dL Hct (39.0-53.0) % Fibrinogen 540 H (200-500) mg/dL ABG pH (7.35-7.45) ABG pO2 (83-108) mmHg ABG HCO3 (21-25) mmol/L ABG O2 Saturation (94-97) % Sodium (137-145) mmol/L Carbon Dioxide (22-30) mmol/L BUN (9-20) mg/dL Creatinine (0.66-1.25) mg/dL Glucose (74-99) mg/dL POC Glucose (mg/dL) 144 H 136 H (75-99) mg/dL Calcium (8.4-10.2) mg/dL 09/08/20 09/08/20 09/08/20 Range/Units 01:46 03:29 04:25 WBC 17.2 H (3.8-10.6) k/uL RBC 2.84 L (4.30-5.90) m/uL Hgb 8.1 L (13.0-17.5) gm/dL Hct 24.5 L (39.0-53.0) % Fibrinogen (200-500) mg/dL ABG pH (7.35-7.45) ABG pO2 (83-108) mmHg ABG HCO3 (21-25) mmol/L ABG O2 Saturation (94-97) % Sodium (137-145) mmol/L Carbon Dioxide (22-30) mmol/L BUN (9-20) mg/dL Creatinine (0.66-1.25) mg/dL Glucose (74-99) mg/dL POC Glucose (mg/dL) 143 H 132 H (75-99) mg/dL Calcium (8.4-10.2) mg/dL 09/08/20 09/08/20 09/08/20 Range/Units 04:25 05:11 07:01 WBC (3.8-10.6) k/uL RBC (4.30-5.90) m/uL Hgb (13.0-17.5) gm/dL Hct (39.0-53.0) % Fibrinogen (200-500) mg/dL ABG pH 7.25 L (7.35-7.45) ABG pO2 71 L (83-108) mmHg ABG HCO3 20 L (21-25) mmol/L ABG O2 Saturation 92.0 L (94-97) % Sodium 130 L (137-145) mmol/L Carbon Dioxide 20 L (22-30) mmol/L BUN 84 H (9-20) mg/dL Creatinine 5.95 H (0.66-1.25) mg/dL Glucose 132 H (74-99) mg/dL POC Glucose (mg/dL) 156 H (75-99) mg/dL Calcium 7.1 L (8.4-10.2) mg/dL 09/08/20 09/08/20 09/08/20 Range/Units 07:57 12:01 13:35 WBC (3.8-10.6) k/uL RBC (4.30-5.90) m/uL Hgb (13.0-17.5) gm/dL Hct (39.0-53.0) % Fibrinogen (200-500) mg/dL ABG pH (7.35-7.45) ABG pO2 (83-108) mmHg ABG HCO3 (21-25) mmol/L ABG O2 Saturation (94-97) % Sodium (137-145) mmol/L Carbon Dioxide (22-30) mmol/L BUN (9-20) mg/dL Creatinine (0.66-1.25) mg/dL Glucose (74-99) mg/dL POC Glucose (mg/dL) 157 H 163 H 175 H (75-99) mg/dL Calcium (8.4-10.2) mg/dL Assessment and Plan Plan: -Covid 19 infection/pneumonia , patient presently has Pseudomonas pneumonia patient is presently on cefepime and Flagyl. -Acute hypoxic, hypercapnic respiratory failure requiring mechanical ventilation, patient is on muscle relaxants as well. -Septic shock improved presently not on any pressors. -Bleeding diathesis with the hematuria and blood in the oral cavity and secondary to Lovenox. -confirmed pneumoperitoneum as noted on CT -bilateral lower extremity deep vein thromboses -acute renal failure likely acute tubular necrosis, likely from vancomycin toxicity currently requiring hemodialysis -Acute respiratory arrest with hypoxia -Right side pneumothorax , small stable left-sided pneumothorax. -Type 2 diabetes mellitus, uncontrolled and elevated blood sugars and patient patient's IV insulin will be weaned off and patient was started on long-acting Lantus as well as sliding scale insulin patient is receiving NG tube feedings and remains on Decadron. -Hyponatremia: Secondary to renal dysfunction -Hypertension: -DVT prophylaxis Lovenox is being held because of bleeding -GI prophylaxis
[2020-09-08 17:34] LABS: Glucose,Whole Blood 144 mg/dL (75-99)
[2020-09-08] MEDS: INSULIN ASPART (NovoLOG) 100 UNIT/ML VIAL SQ SCH (18:22)
[2020-09-08] MEDS: metroNIDAZOLE 500 MG TAB PO SCH (18:22)
[2020-09-08] MEDS: INSULIN DETEMIR (LEVEMIR) 100 UNIT/ML SYR SQ SCH (18:22)
--- NOTE | 2020-09-08 21:15 | P.PN ---
Subjective Progress Note Date: 09/08/20 Patient is still oozing/bleeding at sites Objective - Vital Signs Vital signs: Vital Signs Temp 98.6 F 09/08/20 17:52 Pulse 92 09/08/20 19:00 Resp 20 09/08/20 19:00 BP 132/55 09/08/20 17:52 Pulse Ox 93 L 09/08/20 19:00 Intake & Output 09/08/20 09/08/20 09/09/20 06:59 18:59 06:59 Intake Total 9033.589 0993.576 Output Total 55 2530 Balance 1103.884 -1262.424 Weight 120.6 kg Intake: IV 340 419 Cefepime 1 gm In Sodium 50 50 Chloride 0.9% 50 ml @ 12. 5 mls/hr IVPB Q12HR [facility] Rx#:[id number] Normal Saline PRessure 60 39 bag metroNIDAZOLE-NS PMX 500 100 100 mg In Saline 1 100ml.bag @ 100 mls/hr IVPB Q8HR [facility] Rx#:[id number] sodium chloride @ 10ml hr 130 230 Intake, IV Titration 518.884 468.576 Amount Insulin Regular 100 unit 29.155 19.729 In Sodium Chloride 0.9% 100 ml @ Per Protocol IV .Q0M [facility] Rx#:[id number] Norepinephrine 32 mg In 62.737 Sodium Chloride 0.9% 218 ml @ 0.05 MCG/KG/MIN 2. 866 mls/hr IV .Q24H [facility] Rx#:[id number] propofoL 1,000 mg In 489.729 386.110 Empty Bag 1 bag @ Titrate IV .Q0M [facility] Rx#: [id number] Tube Feeding 240 200 Other 60 180 Output: Chest Tube Drainage 0 Chest Tube Right 0 Chest Tube Right Upper 0 Left Upper Anterior Chest 0 Urine 55 30 Hemodialysis 2500 Other: Voiding Method Indwelling Catheter Indwelling Catheter # Bowel Movements 1 ABP, PAP, CO, CI - Last Documented Arterial Blood Pressure 135/56 - Exam - Constitutional Sedated, on vent - EENT ENT: other (Small amount of bright blood in visible oral cavity. Mild tongue swelling) - Neck Neck: no lymphadenopathy Thyroid: bilateral: normal size - Respiratory Respiratory: bilateral: CTA - Cardiovascular Rhythm: regular Heart sounds: normal: S1, S2 - Gastrointestinal Stool collection system, with watery greenish brown stool General gastrointestinal: decreased bowel sounds, soft - Integumentary Integumentary: normal - Neurologic Sedated, on vent - Musculoskeletal Upper and lower extremity edema Musculoskeletal: generalized weakness - Psychiatric Related, on ventilator - Labs CBC & Chem 7: 09/08/20 04:25 09/08/20 04:25 Labs: Abnormal Lab Results - Last 24 Hours (Table) 09/07/20 09/07/20 09/07/20 Range/Units 20:30 22:02 23:39 WBC (3.8-10.6) k/uL RBC (4.30-5.90) m/uL Hgb (13.0-17.5) gm/dL Hct (39.0-53.0) % Fibrinogen 540 H (200-500) mg/dL ABG pH (7.35-7.45) ABG pO2 (83-108) mmHg ABG HCO3 (21-25) mmol/L ABG O2 Saturation (94-97) % Sodium (137-145) mmol/L Carbon Dioxide (22-30) mmol/L BUN (9-20) mg/dL Creatinine (0.66-1.25) mg/dL Glucose (74-99) mg/dL POC Glucose (mg/dL) 144 H 136 H (75-99) mg/dL Calcium (8.4-10.2) mg/dL 09/08/20 09/08/20 09/08/20 Range/Units 01:46 03:29 04:25 WBC 17.2 H (3.8-10.6) k/uL RBC 2.84 L (4.30-5.90) m/uL Hgb 8.1 L (13.0-17.5) gm/dL Hct 24.5 L (39.0-53.0) % Fibrinogen (200-500) mg/dL ABG pH (7.35-7.45) ABG pO2 (83-108) mmHg ABG HCO3 (21-25) mmol/L ABG O2 Saturation (94-97) % Sodium (137-145) mmol/L Carbon Dioxide (22-30) mmol/L BUN (9-20) mg/dL Creatinine (0.66-1.25) mg/dL Glucose (74-99) mg/dL POC Glucose (mg/dL) 143 H 132 H (75-99) mg/dL Calcium (8.4-10.2) mg/dL 09/08/20 09/08/20 09/08/20 Range/Units 04:25 05:11 07:01 WBC (3.8-10.6) k/uL RBC (4.30-5.90) m/uL Hgb (13.0-17.5) gm/dL Hct (39.0-53.0) % Fibrinogen (200-500) mg/dL ABG pH 7.25 L (7.35-7.45) ABG pO2 71 L (83-108) mmHg ABG HCO3 20 L (21-25) mmol/L ABG O2 Saturation 92.0 L (94-97) % Sodium 130 L (137-145) mmol/L Carbon Dioxide 20 L (22-30) mmol/L BUN 84 H (9-20) mg/dL Creatinine 5.95 H (0.66-1.25) mg/dL Glucose 132 H (74-99) mg/dL POC Glucose (mg/dL) 156 H (75-99) mg/dL Calcium 7.1 L (8.4-10.2) mg/dL 09/08/20 09/08/20 09/08/20 Range/Units 07:57 12:01 13:35 WBC (3.8-10.6) k/uL RBC (4.30-5.90) m/uL Hgb (13.0-17.5) gm/dL Hct (39.0-53.0) % Fibrinogen (200-500) mg/dL ABG pH (7.35-7.45) ABG pO2 (83-108) mmHg ABG HCO3 (21-25) mmol/L ABG O2 Saturation (94-97) % Sodium (137-145) mmol/L Carbon Dioxide (22-30) mmol/L BUN (9-20) mg/dL Creatinine (0.66-1.25) mg/dL Glucose (74-99) mg/dL POC Glucose (mg/dL) 157 H 163 H 175 H (75-99) mg/dL Calcium (8.4-10.2) mg/dL 09/08/20 Range/Units 17:32 WBC (3.8-10.6) k/uL RBC (4.30-5.90) m/uL Hgb (13.0-17.5) gm/dL Hct (39.0-53.0) % Fibrinogen (200-500) mg/dL ABG pH (7.35-7.45) ABG pO2 (83-108) mmHg ABG HCO3 (21-25) mmol/L ABG O2 Saturation (94-97) % Sodium (137-145) mmol/L Carbon Dioxide (22-30) mmol/L BUN (9-20) mg/dL Creatinine (0.66-1.25) mg/dL Glucose (74-99) mg/dL POC Glucose (mg/dL) 144 H (75-99) mg/dL Calcium (8.4-10.2) mg/dL Assessment and Plan Plan: Assessment and Plan: Bleeding Diathesis - - Component of enhanced anticoagulant effect of Lovenox as primary etiology, as well as a lesser component of heparin due to the patient's renal insufficiency. - Likely portion of platelet dysfunction due to renal failure. - Clinically he continues to have oozing of blood from mucous membranes and IV sites, although does not appear to be having any increased bleeding. - Drop in hemoglobin continues and is now 8. - Platelet counts continue to remain within normal. - No coagulopathy noted on labs. Recheck Coags in am - Anti-X A has been ordered and is pending. I have discussed with lab to expedite and re-order placed. This is a send out test, results may be delayed. - Await XA prior to resuming anti-coagulation and stabilization of hemoglobin - Continue to monitor coagulation parameters, Daily CBC, to check for any development of DIC-type phenomenon related to his underlying COVID Discussed with lab again Hold off on starting heparin as patient still bleeding and per nursing possibly worse, not improved. CBC, COags in am
[2020-09-08] MEDS: ASPIRIN 81 MG PO SCH (21:16)
--- NOTE | 2020-09-08 22:26 | XR ---
EXAMINATION TYPE: XR chest 1V portable DATE OF EXAM: 09/08/2020 COMPARISON: Today HISTORY: Check tube placement TECHNIQUE: Single view FINDINGS: There is nasogastric tube that appears below the diaphragm in the stomach. Endotracheal tub e is 5 cm from the mauro in good position. There is right-sided chest tube with the tip over the rig ht lung apex. There is extensive soft tissue air on the left and right chest wall. I see no pneumotho rax. Heart size is fairly normal. There is diffuse pulmonary interstitial and nodular pulmonary infil trate. There is a left-sided chest tube with the tip over the lateral left upper lobe. IMPRESSION: There is pulmonary edema unchanged. No pneumothorax. Tip of the nasogastric tube not incl uded on the exam. Tip is probably in the stomach in the gastric fundus.
--- NOTE | 2020-09-08 22:55 | PN ---
PROGRESS NOTE DATE OF SERVICE: 09/08/2020 REASON FOR FOLLOWUP: Pneumonia. INTERVAL HISTORY: The patient is currently afebrile. The patient is hemodynamically stable, still requiring low-dose pressor support. FiO2 is cut down to 50%. No purulent secretions in the ET or any worsening diarrhea reported by the nursing staff. PHYSICAL EXAMINATION: Blood pressure 135/56, pulse of 92, temperature 98. He is 93% on 50% FiO2. General description is a middle-aged male intubated on the vent. RESPIRATORY SYSTEM: Unlabored breathing with decreased breath sounds at the base. No wheeze. HEART: S1, S2. Regular rate and rhythm. ABDOMEN: Soft. Mildly distended. No guarding or rigidity. EXTREMITIES: Two plus edema of the feet. LABS: Hemoglobin 8.1, white count 17.2, BUN of 84, creatinine 5.95. DIAGNOSTIC IMPRESSION AND PLAN: Patient with acute respiratory failure which is multifactorial in this patient who did have a component of pneumonia. The patient has received antibiotics for his COVID-19. Subsequent sputum with pseudomonas and is covered with cefepime along with Flagyl, as there evidence of pneumoperitoneum on one of the x-rays. The patient is currently covered with these antibiotics; to continue along with respiratory support. Monitor his clinical course closely. MMODL / IJN: [id number] /
[2020-09-09 00:28] LABS: Glucose,Whole Blood 110 mg/dL (75-99)
[2020-09-09] MEDS: INSULIN ASPART (NovoLOG) 100 UNIT/ML VIAL SQ SCH ×5 (00:30→23:19)
[2020-09-09] MEDS: metroNIDAZOLE 500 MG TAB PO SCH ×4 (00:50→23:21)
[2020-09-09 05:24] LABS: Glucose,Whole Blood 138 mg/dL (75-99)
[2020-09-09 05:31] LABS: ABG Base Excess -5.4 mmol/L; ABG HCO3 21 mmol/L (21-25); ABG Oxygen Saturation 95.4 % (94-97); ABG PCO2 45 mmHg (35-45); ABG PH 7.29 (7.35-7.45); ABG PO2 82 mmHg (83-108); ABG TCO2 23 mmol/L (19-24); Allen Test Performed? Yes
[2020-09-09 05:41] LABS: HCT 24.2 % (39.0-53.0); HGB 8.3 gm/dL (13.0-17.5); MCH 29.6 pg (25.0-35.0); MCHC 34.3 g/dL (31.0-37.0); MCV 86.2 fL (80.0-100.0); Mean Platelet Volume 8.3; Platelet Count 191 k/uL (150-450); Poikilocytosis Slight; RDW 15.6 % (11.5-15.5); WBC 16.9 k/uL (3.8-10.6)
[2020-09-09 05:55] LABS: Calcium 7.1 mg/dL (8.4-10.2); Potassium 3.8 mmol/L (3.5-5.1)
--- NOTE | 2020-09-09 07:46 | XR ---
EXAMINATION TYPE: XR chest 1V portable DATE OF EXAM: 09/09/2020 COMPARISON: Prior chest x-ray 09/08/2020 HISTORY: Intubated, chest tubes TECHNIQUE: Single frontal view of the chest is obtained. FINDINGS: Endotracheal tube, orogastric tube, bilateral chest tubes are again seen and are stable, o ne of the 2 chest tubes at the right lung base shows the side port close to the chest wall and may be withdrawn slightly although there is difference in rotation. There is extensive subcutaneous emphyse ma. Bilateral airspace disease persists. Cardiomediastinal silhouette is unchanged. There are overlyi ng cardiac leads. Minimal right apical pneumothorax is suspected. No sizable effusion. Findings sugge st pneumomediastinum, pneumopericardium. IMPRESSION: Findings are similar to prior exam, basilar chest tube as described may withdrawn slight ly.
[2020-09-09] MEDS: NOREPINEPHRINE 32 MG in SODIUM CHLORIDE 0.9% 218 ML IV SCH (09:53)
[2020-09-09] MEDS: CISATRACURIUM 200 MG in SODIUM CHLORIDE 0.9% 180 ML IV SCH (09:54)
--- NOTE | 2020-09-09 11:31 | P.PN ---
Subjective Covid 19 infection/pneumonia 53-year-old male is admitted for Covid19 pneumonitis, sepsis. Patient went into hypoxemia last night ended up on 3 L of oxygen.overall feeling little bit better. 08/17/2020 Patient's is pretty status is worse and patient is not doing well in spite of high flow nasal cannula oxygen along with 100% many mask. Patient is being started on Remdesivir. Patient is still complaining of shortness of breath Constitutional: Denied any fatigue denied any fever. Cardio vascular: denied any chest pain, palpitations Gastrointestinal denied any nausea vomiting Pulmonary: As mentioned above Neurologic denied any new focal deficits All inpatient medications were reviewed and appropriate changes in these medications as dictated in the interval history and assessment and plan. 08/18/2020 Patient is seen and evaluated in follow-up and continues to be maintained on high flow oxygen via nasal cannula. Infectious disease is following. Patient continues to have shortness of breath especially with exertion. Discussed with the patient about increasing activity and getting up to the commode and chair. Patient states he feels slightly better today although continues to be extremely dyspneic. Review of systems: Constitutional: No reports of fatigue, fever, or chills Cardiovascular: No reports of chest pain or palpitations Respiratory: Reports shortness of breath with occasional cough GI: No reports of nausea, vomiting, or diarrhea : No reports of dysuria or retention Neurovascular: No reports of weakness or numbness All medications have been reviewed 08/19/2020 Patient is seen and evaluated in follow-up with no real improvement of respiratory status. Patient continues to sat in the low 80s and drops quickly without oxygen. He she is currently maintained on 15 L high flow oxygen along with a nonrebreather over that and was able to obtain 90% oxygen saturation. Patient is currently sitting up at the bedside asking when he can go home. Discussed with the patient at length about respiratory status and his inability to come off oxygen at this time. White blood count elevated at 17.9 from yest erday. BMP within normal limits although blood glucose levels continue to be elevated. Patient is maintained on sliding scale along with long-acting and oral antidiabetic medications. Will continue to monitor as the dexamethasone may be a component of elevated glucose levels. Discussed with the patient about incentive spirometer and instructed to use at least 10 times every hour while awake. Patient currently denies any chest pain or palpitations. Patient is afebrile. No reports of nausea or vomiting patient states he does not have much of an appetite although is tolerating diet. 08/20/2020 Patient is seen in follow-up and continues to be on a nonrebreather and 15 L high flow oxygen and was found to be extremely anxious and hypoxic with saturations in the 70s earlier this morning Repeat chest x-ray done today shows right side pneumothorax along with pneumo mediastinum, subcutaneous emphysema. Pulmonary Dr. López is following and will be placing a chest tube this afternoon. Lovenox dose will be adjusted once chest tube is placed. White blood count elevated at 20.7. D-dimer was found to be 13.05. Review of systems: Constitutional: Anxious, no reports of fever, or chills Cardiovascular: No reports of chest pain or palpitations Respiratory: reports worsening shortness of breath and difficulty breathing GI: No reports of nausea, vomiting, or diarrhea : No reports of dysuria or retention Neurovascular: No reports of weakness or numbness All medications have been reviewed 08/21/2020 Patient is seen and evaluated and follow-up currently remains in the ICU as patient underwent right chest tube placement with Dr. López yesterday due to right pneumothorax with pneumomediastinum and subcutaneous emphysema. Patient is currently sitting up in the chair and on a nonrebreather and high flow oxygen at flow rate of 60% with an FiO2 of 85%. Patient is currently at 89% oxygen saturation. Patient is also receiving a unit of fresh frozen plasma and is maintained on Lovenox. Blood sugars continue to be elevated and will continue to monitor with long-acting along with sliding scale. White Blood count 20.2. Chest x-ray this morning shows a stable right pneumothorax with right-sided chest tube noted and stable subcutaneous emphysema. Patient instructed to continue with incentive spirometer and semi-prone position with the right side up. Patient is somewhat anxious and agitated with remaining hospitalized. No reports of chest pain or palpitations. Denies any nausea or vomiting and is tolerating diet. Patient is currently afebrile. 08/22/2020 Patient has 2 chest tubes on the right side. Patient remains on airvo, there was a persistent leak in the previous chest tube. 08/23/2020 Patient the has bilateral pneumothorax right side has 2 chest tubes attached to wall suction and left-sided pneumothorax is 10-15% which is being monitored, cardiothoracic surgery evaluated the patient. Patient is presently on Bipap. Review of systems: Unable to obtain due to his clinical condition did All inpatient medications were reviewed and appropriate changes in these medications as dictated in the interval history and assessment and plan. 08/24/2020 Patient currently remains on a BiPAP and has 2 right-sided chest tubes and awaiting for possible pigtail once more stabilized. Patient is currently unable to tolerate travel to [place] for interventional radiology to place the catheter. Chest x-ray today shows a moderate size recurrence of the right pneumothorax along with a small left apical pneumo that appears to be stable along with diffuse patchy infiltrates within bilateral lung ulloa. Pulmonary following closely. Discussed with pulmonary about the possibility of a transfer to a tertiary care center if patient's clinical status continues to deteriorate and unable to obtain the left side pigtail catheter. Remains in the ICU with close monitoring. Patient continues on IV antibiotics in the form of cefepime and vancomycin along with zinc, Lovenox, and dexamethasone. Review of systems: Constitutional: Reports fatigue, anxious, no reports of fever, or chills Cardiovascular: No reports of chest pain or palpitations Respiratory: Reports continued shortness of breath and cough GI: No reports of nausea, vomiting, or diarrhea : No reports of dysuria or retention Neurovascular: Reports weakness, no reports of numbness All medications have been reviewed 08/25/2020 Patient is seen and evaluated in follow-up and continues to be closely monitored in the ICU. Patient had a brief period Of respiratory arrest with attempts to pull out chest tubes after removing the BiPAP and was ultimately intubated. Patient was placed on sedation and appears much more calm at this time. Patient currently awaiting to receive a left side chest tube for the small pneumothorax with pulmonary. Patient continues to have 2 right-sided chest tubes at this time. White blood count elevated Review of systems: Unable to assess as patient is currently intubated and sedated. 08/26/20 Patient seen in follow up current remains in the ICU being closely monitored. Repeat chest xray today shows continued diffuse bilateral air space infiltrates with no pneumothoraces visible. Patient continues to have 3 chest tubes and intubated. Prognosis is poor. Code status discussed with the Bette Flores today and she would like him comfortable and made a no code. Consult placed to case management for hospice consult as she would like information about hospice and comfort measures. 08/27/2020 Patient is currently on back on ventilator. Sedated and paralyzed. Patient does have chest tubes in place. Chest x-ray showed stable portable chest. Bilateral chest tubes are redemonstrated. Bilateral less than 10% pneumothorax seen bilaterally. Laboratory data showed WBC 28.6, hemoglobin 13.0, platelets 157 Lymphocyte count 0.2 ABG showed pH of 7.19, PCO2 61 and PO2 6390% FiO2 Sodium 136, potassium 5.7 and chloride 108, BUN 64 and creatinine 3.17 Significantly elevated inflammatory markers. Patient is being continued on antibiotics in the form of cefepime and vancomycin. Currently on dexamethasone and completed remdesivir course. Continued on insulin dosing. 09/05/2020 Patient is currently in the MICU sedated and intubated. Patient was having bleeding through the endotracheal tube and OG tube. Anticoagulation is on hold at this time. Patient is currently 80% FiO2 and assist control. Chest x-ray showed no significant pneumothorax seen. Minimal subcutaneous emphysema and mediastinal emphysema leaving the left chest tube. Right chest tube without leaking air. Patient is tolerating tube feeding. Currently on antibiotics in the form of IV cefepime for MSSA pneumonia. Patient underwent hemodialysis today. 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 Currently on FiO2 60%. Intubated and sedated. Patient underwent hemodialysis yesterday with 2.5 L ultrafiltration. Tolerating tube feeding. Continued on Levophed. Anticoagulation is on hold due to bleeding from the ET tube and Hallman catheter. Hematology has seen the patient and bleeding dialysis felt to be mostly due to enhanced anticoagulant effect of Lovenox and also platelet dysfunction due to renal failure on hemodialysis. Antifactor 10-year has been ordered and is currently pending.. Chest x-ray showed diffuse interstitial infiltrates remain. Airspace disease in the right lower lobe show some improvement. Bilateral chest tubes. Slight improvement in the patient's subcutaneous emphysema as well. Laboratory data showed WBC 20.1 hemoglobin 8.6 Sodium 134, potassium 4.5, BUN 70 and creatinine 4.93 and inflammatory markers are elevated. Patient is being continued on antibiotics in the form of cefepime and Flagyl. Sputum cultures grew Pseudomonas and Kristen albicans. Repeat blood cultures have been negative so far. 09/07/2020 Patient is undergoing hemodialysis today. Patient agrees to have right-sided to 2 chest tubes and left-sided 1 chest tube. Patient remains on propofol drip and Nimbex. Patient the is on insulin drip for Levothroid drip sputum cultures are positive for MSSA and pseudomonas, Kristen albicans. Infectious disease is following the patient as well. Patient is presently on cefepime and metronidazole. 09/08/2020 Patient can use to have some bleeding in the oral cavity. Patient's anticoagulation was discontinued and patient was on Lovenox and patient the head renal dysfunction because of which patient ended up bleeding quite a bit. Patient remains on same antibiotics all 3 chest tubes remain in place. Patient does have elevated blood sugars patient is receiving Nepro via via NG tube. Patient is also on systemic steroids increasing his blood sugars. Patient will be started on Levemir will try to wean him off IV insulin. Patient will also be continued on sliding scale. While titrating his insulin patient blood sugars are expected to stay high. is probably more appropriate for placement to select specialty, if not comfort care. Patient didn't undergo hemodialysis today yet. 09/19/2020 Patient is undergoing dialysis today. Patient respiratory status bleed did improve and patient is on FiO2 50% on minimal pressor support. Patient still has 3 chest tubes. Patient probably will need a tracheostomy and PEG tube pl acement and a transfer to although hemoglobin remained stable for last couple days because of which hematology evaluated the patient the recommending to resume on anti-correlation as soon as possible and they believe bleeding is secondary to platelet dysfunction for which they're recommending DDAVP patient is definitely high risk for PE/DVT. My plan is to bed and give DDAVP today I am hoping that his bleeding diathesis will improve and will start him on heparin at that time. We'll plan on starting him on IV heparin if her clinical bleeding is bit better. Patient's hemoglobin also remained stable for last couple days. Current medications reviewed. Review of systems: Unable to obtain as patient is intubated and sedated. Objective - Vital Signs Vital signs: Vital Signs Temp 97.4 F L 09/09/20 08:00 Pulse 90 09/09/20 11:00 Resp 24 09/09/20 11:00 BP 134/62 09/09/20 11:00 Pulse Ox 93 L 09/09/20 11:00 Intake & Output 09/08/20 09/09/20 09/09/20 18:59 06:59 18:59 Intake Total 1267.576 702.171 139.439 Output Total 2530 80 10 Balance -1262.424 622.171 129.439 Weight 125.5 kg Intake: IV 419 160 50 Cefepime 1 gm In Sodium 50 Chloride 0.9% 50 ml @ 12. 5 mls/hr IVPB Q12HR [facility] Rx#:[id number] Normal Saline PRessure 39 bag metroNIDAZOLE-NS PMX 500 100 mg In Saline 1 100ml.bag @ 100 mls/hr IVPB Q8HR [facility]JAN Rx#:[id number] sodium chloride @ 10ml hr 230 160 50 Intake, IV Titration 468.576 202.171 89.439 Amount Insulin Regular 100 unit 19.729 In Sodium Chloride 0.9% 100 ml @ Per Protocol IV .Q0M [facility] Rx#:[id number] Norepinephrine 32 mg In 62.737 89.439 Sodium Chloride 0.9% 218 ml @ 0.05 MCG/KG/MIN 2. 866 mls/hr IV .Q24H [facility] Rx#:[id number] propofoL 1,000 mg In 386.110 202.171 Empty Bag 1 bag @ Titrate IV .Q0M [facility] Rx#: [id number] Tube Feeding 200 220 Other 180 120 Output: Chest Tube Drainage 0 0 Chest Tube Right 0 0 Chest Tube Right Upper 0 0 Left Upper Anterior Chest 0 0 Urine 30 80 10 Hemodialysis 2500 Other: Voiding Method Indwelling Catheter Indwelling Catheter # Bowel Movements 1 ABP, PAP, CO, CI - Last Documented Arterial Blood Pressure 118/46 - Exam GENERAL: The patient is intubated and sedated and appears to be in no acute distress. HEENT: Pupils are round and equally reacting to light. EOMI. No scleral icterus. No conjunctival pallor. Normocephalic, atraumatic. No pharyngeal erythema. No thyromegaly. ET tube noted CARDIOVASCULAR: S1 and S2 present. No murmurs, rubs, or gallops. PULMONARY: Bilateral scattered rhonchi, no wheezing noted diminished air entry bilaterally worse on the right, tachypneic, 2 chest tubes noted on the right side and one on the left ABDOMEN: Soft, nontender, nondistended, normoactive bowel sounds. No palpable organomegaly. MUSCULOSKELETAL: No joint swelling or deformity. EXTREMITIES: No cyanosis, clubbing, or pedal edema. NEUROLOGICAL: Unable to fully assess as patient is intubated and sedated SKIN: No rashes. Note: Because of COVID 19 isolation, some of the history and physical exam findings are indirect and obtained from nursing staff, and other physician examinations to avoid unnecessary contact with the patient. - Labs CBC & Chem 7: 09/09/20 04:45 09/09/20 04:45 Labs: Abnormal Lab Results - Last 24 Hours (Table) 09/08/20 09/08/20 09/08/20 Range/Units 12:01 13:35 17:32 WBC (3.8-10.6) k/uL RBC (4.30-5.90) m/uL Hgb (13.0-17.5) gm/dL Hct (39.0-53.0) % RDW (11.5-15.5) % ABG pH (7.35-7.45) ABG pO2 (83-108) mmHg Sodium (137-145) mmol/L Carbon Dioxide (22-30) mmol/L BUN (9-20) mg/dL Creatinine (0.66-1.25) mg/dL Glucose (74-99) mg/dL POC Glucose (mg/dL) 163 H 175 H 144 H (75-99) mg/dL Calcium (8.4-10.2) mg/dL 09/09/20 09/09/20 09/09/20 Range/Units 00:26 04:45 04:45 WBC 16.9 H (3.8-10.6) k/uL RBC 2.80 L (4.30-5.90) m/uL Hgb 8.3 L (13.0-17.5) gm/dL Hct 24.2 L (39.0-53.0) % RDW 15.6 H (11.5-15.5) % ABG pH (7.35-7.45) ABG pO2 (83-108) mmHg Sodium 136 L (137-145) mmol/L Carbon Dioxide 21 L (22-30) mmol/L BUN 68 H (9-20) mg/dL Creatinine 5.45 H (0.66-1.25) mg/dL Glucose 121 H (74-99) mg/dL POC Glucose (mg/dL) 110 H (75-99) mg/dL Calcium 7.1 L (8.4-10.2) mg/dL 09/09/20 09/09/20 Range/Units 04:50 05:23 WBC (3.8-10.6) k/uL RBC (4.30-5.90) m/uL Hgb (13.0-17.5) gm/dL Hct (39.0-53.0) % RDW (11.5-15.5) % ABG pH 7.29 L (7.35-7.45) ABG pO2 82 L (83-108) mmHg Sodium (137-145) mmol/L Carbon Dioxide (22-30) mmol/L BUN (9-20) mg/dL Creatinine (0.66-1.25) mg/dL Glucose (74-99) mg/dL POC Glucose (mg/dL) 138 H (75-99) mg/dL Calcium (8.4-10.2) mg/dL Assessment and Plan Plan: -Covid 19 infection/pneumonia , patient presently has Pseudomonas pneumonia patient is presently on cefepime and Flagyl. Patient appears to have ventilator associated pneumonia with Pseudomonas. -Acute hypoxic, hypercapnic respiratory failure requiring mechanical ventilation, patient is on muscle relaxants as well. -Septic shock improved presently not on any pressors. -Bleeding diathesis with the hematuria and blood in the oral cavity and secondary to Lovenox. -confirmed pneumoperitoneum as noted on CT -bilateral lower extremity deep vein thromboses -acute renal failure likely acute tubular necrosis, likely from vancomycin toxicity currently requiring hemodialysis -Acute respiratory arrest with hypoxia -Right side pneumothorax , small stable left-sided pneumothorax. -Type 2 diabetes mellitus, uncontrolled and elevated blood sugars and patient patient's IV insulin will be weaned off and patient was started on long-acting Lantus as well as sliding scale insulin patient is receiving NG tube feedings and remains on Decadron. -Hyponatremia: Secondary to renal dysfunction -Hypertension: -DVT prophylaxis Lovenox is being held because of bleeding -GI prophylaxis
--- NOTE | 2020-09-09 11:45 | PN ---
PROGRESS NOTE Patient is seen for followup for acute kidney injury. He remains hemodialysis dependent, currently seen on dialysis. Patient's has decided to continue with renal replacement therapy and current code status. PHYSICAL EXAMINATION: On examination today, patient is sedated. He remains on the vent. Blood pressure is 146/46, heart rate 94 per minute. He is afebrile. FiO2 is at 50%. Examination shows severe edema bilaterally upper and lower extremities. Abdomen is soft, nontender. There is some oozing of blood noted from his mouth. The patient is tolerating tube feeds. LABS: Show sodium 136, potassium 3.8, chloride 104, CO2 is 21, BUN 68, serum creatinine 5.4, hemoglobin 8.3 g/dL. ASSESSMENT: 1. Acute kidney injury, ATN, oliguric from underlying COVID infection, sepsis, currently hemodialysis-dependent with severe volume overload. Continue with daily dialysis. 2. COVID-19 pneumonia and sepsis. 3. Acute hypoxic respiratory failure currently on the vent associated with COVID infection and pneumonia and sepsis. 4. Pneumothorax, status post bilateral chest tubes. 5. Metabolic acidosis associated with renal failure, now improved with dialysis. PLAN: Continue with the dialysis treatments for now. Continue daily treatments. MMODL / IJN: [id number] /
[2020-09-09 12:11] LABS: Glucose,Whole Blood 136 mg/dL (75-99)
--- NOTE | 2020-09-09 12:31 | P.PN ---
Subjective Progress Note Date: 09/09/20 (Critical care time 35 minutes) Principal diagnosis: Right spontaneous pneumothorax status post 2 chest tubes Pneumomediastinum Left spontaneous pneumothorax Acute hypoxic respiratory failure Covid 19 pneumonia Type 2 diabetes mellitus Hypertension hypertensive cardiovascular disease Dehydration hypovolemia and hyponatremia Depression 09/09/2020, patient seen eval reexamined during the rounds labs reviewed medications reviewed care plan discussed with the staff at length, critical care time spent 35 minutes, patient just finished hemodialysis more than 2.5 L have been removed, patient remains off of Nimbex drip on propofol, currently patient is on controlled mechanical ventilation with a rate of 34 tidal volume of 550, PEEP is 12, oxygen is 50%, still have air leak on the right side board chest use present, air leak has improved very minimal occasional on the left side is noted, still have mediastinal emphysema on chest x-ray and bilateral interstitial infiltrate, labs reviewed, is having issues with the oral bleeding is more like a posing some of the bleeding has been noted from the IV sites and PICC line sides, dark bloods have been through the NG tube, patient remains on now Decadron, broad-spectrum antibiotics for staph MSSA and Pseudomonas pneumonia, patient is due for tracheostomy and PEG tube but given the high amount of mediastinal air and air leaks less likely to retain the tracheostomy afraid that we'll developed complications, on the other hand I have discussed with , about trach and PEG she absolutely declined it, in fact she is leaning towords comfort measures, 09/08/2020, patient seen eval examined during the rounds labs reviewed medications reviewed care plan discussed, patient remains intubated sedated with propofol, chest tubes are they're not much change still have air leak is present, chest x-ray reviewed patient had a dialysis yesterday 2.5 L have been removed remains on vasopressors and full ventilator support, PEEP is 12 tidal volume is 500, with assist control mode, chest x-ray not much change, message l eft for the awaiting her response, FiO2 is 50% oxygen saturation is 91%, continue supportive care critical care time spent 35 minutes 09/07/2020, patient seen eval examined during the round FiO2 has been escalated to 60% patient does have occasional cough leak with intermittent drop in volumes , overall ventilator setting remains stable remains on assist control rate of 34 tidal volume 550, PEEP of 12 with an FiO2 of 60%, saturation remains 88-90%, patient likely will need the ET tube exchange, undergoing hemodialysis being planned for removal of 2.5 L, patient remains on the propofol drip and Nimbex has been discontinued, also on levo fed and insulin drip, hemodynamic status stable with a small amount of levo fed, chest x-ray reviewed, ET tube and OG tube as well as multiple chest tube was stable, no significant pneumothorax seen, the subcu emphysema and mediastinal emphysema remains unchanged, patient remains on broad-spectrum antibiotics for MSSA and Pseudomonas pneumonia 09/06/2020, patient seen eval examined during the rounds he remains medically paralyzed and sedated with propofol drip and Nimbex drip, patient remains on full ventilator support however able to decrease oxygen to 50%, patient is on assist control rate of 34 PEEP of 12, oxygen 50%, tidal volume 550, he is due for dialysis tomorrow, patient is still have intermittent clots suctioned from the mouth, appears to be old, bilateral stable chest tube chest x-ray from this morning reviewed care leak is present on the right side left-sided no air leak is present, patient remains on IV antibiotics and Decadron also on insulin drip levo fed drip, labs from today reviewed WBC is 20,000, hemoglobin remained stable 8.6, arterial blood gas revealed pH of 7.24 pCO2 [place] pO2 66, sodium 134 potassium 4.5 BUN/creatinine slightly improved 70 and 4.93, his LDH remains over 1100, C-reactive protein 54.9, ferritin also remains over 1100, chest x-ray reviewed stable PICC line NG tube and ET tube, 2 chest tube on the right side remains stable as well as the left side, no obvious significant pneumothorax seen, subcu and mediastinal emphysema continued to improve, patient is only on aspirin will be resumed on heparin drip most likely tomorrow 09/05/2020, patient seen eval examined during the rounds labs reviewed medications reviewed care plan discussed, bleeding through the endotracheal tube OG tube and oral have significantly improve old blood has been seen patient has been evaluated by hematology recommended to stop anticoagulation factor X A has been sent which will take another 3 or 4 days, for anticoagulation consider heparin restarting up in about 1-2 days, hemodynamics remains marginal patient continued to have intermittent episodes of hypertension, they were noted more during dialysis, current dialysis going on appears to be uneventful, patient remains on 80% oxygen with assist control rate of 34, tidal volume of 5 5012 of PEEP, patient remains on propofol Nimbex and insulin drip, the 3 chest tubes are in chest x-ray reviewed no significant pneumothorax seen minimal subcutaneous emphysema and mediastinal emphysema leaving the left chest tube the right-sided chest tube are leaking air, patient remains on tube feeding, patient remains on IV cephapime for the MSSA pneumonia, new double-lumen PICC line has been inserted, patient also on levo fed to keep systolic blood pressure is stable range, white cell count is 20,000 hemoglobin slowly declining is 9 today, arterial blood gases reviewed pH is 725 with pCO2 48 pO2 120, sodium was 133 potassium is 4.3 BUN/creatinine 75 and 5.11, patient has a mixed respiratory and metabolic acidosis 09/04/2020, patient seen eval examined, labs reviewed medications reviewed care plan discussed with the staff and primary care service as well, patient has a significant drop in volumes on ventilator significant air leak has been noted, ET tube has been changed by anesthesia, volume 7 improved however some desaturation noted requiring increase in oxygen saturation, patient however hemodynamically marginal is now requiring levo fed drip, right-sided chest tube continued to air leak significantly, sided chest tube was stable, noted however basal hip is still in, 09/03/2020, patient seen eval reexamined during the rounds labs reviewed medications reviewed care plan discussed, patient has significant amount of bleeding through the mouth with clumps and clots bright red in addition has been bleeding from the NG tube and ET tube as well, heparin has been stopped, next dose of Lovenox will hold it, repeat CBC is pending hemodynamics are stable, patient is scheduled to get a PICC line, currently patient is on assist control rate of 34 PEEP of 12 tidal volume of 550, 70% oxygen, saturation are 90-92%, the still have significant air leak from the right-sided apical chest tube at the bottom left-sided no significant air leak has been present, patient is getting IV cephapirin for the MSSA in the sputum, IV Diflucan and Flagyl has been admitted for suspicion of bowel perforation however the free air in the abdomen is due to thoracic air mediastinal and pleural escaped into the abdominal cavity, patient has been tolerating tube feed well, he remains medically paralyzed with propofol and Nimbex, white cell count is 18,000 yest erday CBC 10.7 today's labs are not done, PTT was 157, arterial blood gas reviewed pH is 7.2 with pCO2 53 oxygen is 70, patient continued to get hemodialysis per nephrology, 09/02/2020, patient seen eval examined during the rounds labs reviewed medications reviewed, remains sedated on propofol as well as Nimbex, full ventilator support, patient is a 80% oxygen sats are 90%, rate is 34 PEEP is 12, the CAT scan of the lungs consistent with ARDS, patient is getting hemodialysis currently, duplex ultrasound was back positive for bilateral DVT Lovenox increased to 60 mg twice a day, patient continued to have intermittent leak from the right-sided upper chest tube no significant leak is present on bottom 1, no leak has been seen from the left side 1, and cell count remains elevated with stable hemoglobin arterial blood gas shows respiratory acidosis with CO2 55, BUN/creatinine is 107/4.8, prognosis is guarded with likelihood of recovery is poor continue supportive care 09/01/2020, patient seen eval examined care plan discussed with the staff at length, patient remains on 100% oxygen assist control rate of 34 tidal volume of the 500 PEEP of 12, patient had second cycle hemodialysis today 500 mL was removed yesterday 1.5 L was removed, patient was found to have free air in the abdomen by a chest CT, no hollow viscus perforation have been noted, here appears to be thoracic air escaping into the abdominal cavity, patient has minimal pneumothorax on the right side with a stable chest tube in the pleural space draining air right upper chest tube continued to drain area continuously h owever lower chest tube intermittently, patient has extensive pneumomediastinum by CAT scan, left-sided pneumothorax significantly improved minimal or no air leak has been present on the left chest tube, white cell count is up to 22,000, ABG slightly improved and better pH is 7.21, potassium is 5.5, BUN/creatinine was up to 133 and 6.5 postdialysis labs are pending, patient is resumed back on tube feed post second dialysis sats have improved to 96% will titrate oxygen down as tolerated to keep saturation over 92%, critical care time spent 40 minutes 08/31/2020, patient seen eval examined during the rounds labs reviewed medications reviewed care plan discussed with the staff at length, remains medically paralyzed with propofol and Nimbex drip, chest tubes is still significantly leaking on the right side lungs are well expanded though, minimum leak is present at the base, cardiothoracic surgery is have recommended to follow it up closely, no active intervention has been recommended, renal function continued to get worse, patient has been getting diuresis with loop diuretics, would recommend to discontinue it patient remains on bicarb drip, along with anticoagulation, when setting remains stable assist control rate of 24 deep of 12 tidal volume 500 with 100% oxygen, saturation is just a 88-90%, continue broad-spectrum antibiotics and supportive care long-term prognosis poor will defer decision about dialysis to the family and renal services 08/30/2020, patient seen eval examined during the rounds medically sedated and paralyzed of propofol and Nimbex, on full ventilator support with assist control rate of 24 EP is 1200% oxygen which has been reduced to 90% now, saturation 91- 92%, bilateral chest tubes are present minimal air leak on the left side, right- sided apical tube still having persistent nearly however distal intermittently, tolerating tube feed well, labs reviewed arterial blood gas reviewed as well along with radiographic findings patient BUN/creatinine continue to go up consistent with acute tubular necrosis likely related to covid 19 sepsis, arterial blood gases revealed pH is 7.18 pCO2 54 pO2 90, patient improved to 5.4, BUN/creatinine up to 132 and 5.86 08/29/2020, patient seen eval examined during the rounds labs reviewed medications reviewed care plan discussed with the staff including RN and respiratory therapy at length, saturation remains borderline however they were 90% in the morning came down to 84% increasing PEEP causes rapid increase in peak air pressure and platue pressure up to 55 and 35, PEEP lowered to 12, patient remains on 100% oxygen with full assist control mode, arterial blood gases reviewed and significant metabolic acidosis appears to be related to acute renal failure, renal services have been consulted, patient appears to have nonoliguric acute renal failure likely acute tubular necrosis, patient remains gently hydrated to feed and given, remains afebrile, white cell count remains on higher side hemoglobin stable, arterial blood gases noted to be to be pH of 7.18 pCO2 53 pO2 70, 1 amp of bicarb along with bicarb drip have been initiated, potassium running on the higher side of 5.8, inflammatory parameters slightly down of thousand today LDH and C-reactive protein remains elevated, sputum for positive for a MSSA, vancomycin has been discontinued which may be contributing to acute kidney injury, patient remains on the propofol as well as Nimbex drip, patient has 2 chest tubes on the right side and one chest tube on the left side due to pneumomediastinum and bilateral pneumothorax they've been aching is minimal on left and right bottom chest tube significant on apical chest tube however 08/28/2020, patient seen eval examined during the rounds labs reviewed medications reviewed, currently patient is on ventilator support PEEP of 10, 90% oxygen, assist control rate of 30, care blood gases reviewed, chest x-ray reviewed, minimal bilateral apical pneumothorax is present, stable left-sided chest U no air leak is present, right-sided apical tube continued to bubble significant air leak, bottom minimal, patient is medically paralyzed with propofol and Nimbex, laboratory data reviewed discussed at length with the staff 08/27/2020, patient seen eval examined during the rounds sedated and medically paralyzed, right-sided chest tube is still significantly and leak upper tube is present no significantly is seen in the 1 and also left side, labs and arterial blood gases reviewed and ventilator adjusted, chest U was stable on chest x-ray, apical very small pneumothorax, 08/26/2020, patient seen eval examined during the rounds labs reviewed medications reviewed, chest tube continue to gently air, patient intubated, on full ventilator support noted evidence of hypercapnia with increase the ventilation C orders, chest x-ray reviewed trace pneumothorax on the apex cannot be excluded, basal bilateral dense infiltrate with mediastinal emphysema, no significant pneumothorax seen, labs reviewed, critical care time 35 minutes 08/25/2020, patient seen eval examined during the rounds labs reviewed medications reviewed care plan discussed with the staff, patient had a respiratory arrest earlier this morning during which he pulled out his BiPAP machine oxygen saturation dropped down into 20s, he also tried to pull out his chest tube, during that process he was intubated, postintubation chest x-ray shows minimal pneumothorax on the right side left-sided pneumothorax or anterior posterior cannot be excluded, extensive pneumomediastinum is present, patient currently and placed on the propofol at 75 mics was very restless and agitated, tachypneic tachycardic and eventually medically paralyzed with Nimbex drip, respiratory status slightly more stable patient is more calm and now hemodynamics stable, has been getting IV fluids, will need a chest tube on the the left side to avoid tension pneumothorax, keep the 2 chest tube on the right side 1 direct towards the apex appears to be stable however one at the base of the lung is still in, dense bilateral infiltrate are present, white cell count is up to 34,000, arterial blood gas and chest x-ray reviewed consistent with respiratory and metabolic acidosis, with severe hypoxia requiring PEEP with high ventilatory rate 08/24/2020, patient seen eval examined during the rounds labs reviewed medications reviewed sitting upright on the bed, remains on BiPAP with 100% oxygen, saturation 95%, patient desaturated into goes on the right side down and intermittently during supine posture, however do better with left side up, and sitting up as well, chest x-ray from today reviewed pneumothorax recurred on the right side in spite of 2 chest tube aiming towards the apex and the base with significant air leak, small left apical pneumothorax however is stable, patient is awaiting evaluation from thoracic surgery for possible VATS or transfer to tertiary care center, left side and INR will put a small bore pigtail catheter at the apex later on this morning, patient remains afebrile slightly tachycardic tachypneic, inflammatory parameters still up, prognosis is guarded care plan discussed directly and indirectly with primary service, staff, cardiothoracic and IR 08/23/2020, patient seen eval reexamined during the rounds labs reviewed medications reviewed, oxygen saturation remained stable, however patient couldn't tolerate off of BiPAP, he remains on BiPAP. All, chest x-ray reviewed, patient hasn't to right-sided chest tube air leak is present from both, left- sided residual small pneumothorax present along with subcutaneous emphysema and mediastinal emphysema, interventional radiology could not do a chest tube on the left side, they are planning to do it tomorrow, white cell count decreased to 19,000, d-dimer is still elevated inflammatory parameters elevated consistent with cytokine nita 08/22/2020, patient seen eval reexamined significant desaturation was more noted, sats dropped down to 55-70% spontaneously comes right back up though currently on 93% BiPAP, Semiprone with the right side up patient cannot tolerate airvo, desaturated easily remains tachypneic tachycardic hemodynamic status posadas robbie remains stable, chest x-ray findings reviewed in spite of right-sided chest tube and persistent air leak there is a persistent spontaneous pneumothorax fairly large on the right side and small apical left sided spontaneous pneumothorax noted with pneumomediastinum and bilateral dense infiltrate at the bases, thoracic surgery has been consulted, patient may need an another chest tube on the right side versus VATS and preferably and of the small chest U was on the left side, will defer to expertise of thoracic surgery, labs reviewed medications reviewed care plan discussed at length with the staff 08/21/2020, patient seen eval examined during the rounds sitting upright in chair breathing slightly better oxygen saturation is 87-88%, patient is on high flow oxygen along with the nonrebreather mass, tachypneic tachycardic blood pressure is slightly high, patient has a right-sided chest tube is still leaking air, chest x-ray reviewed bilateral infiltrate is present with residual pneumot horax and subcu emphysema, labs from today reviewed white cell count remains elevated 20,000, renal functions stable, will attempt semi-prone with right side up, we will obtain an transfuse convalescent plasma 08/20/2020, patient seen eval examined during the rounds a labs reviewed medications reviewed this morning patient had problems with agitated anxiety and a prehension, oxygen saturation dropped down into 70s, rapid response was called and stat chest x-ray revealed presence of pneumothorax which is significant on the right side as well they may be a small mediastinal emphysema on the left side as well, patient has been made semi-prone with that oxygen saturation 100% nonrebreather mask improved to 92% patient is more calm, he remains afebrile temperature is 98.3 respiratory rate and mid to high 20s, weight is oxygen saturation 94%, chest x-ray finding reviewed 08/19/2020, patient seen eval examined during the rounds labs reviewed medications reviewed care plan discussed, patient is sitting upright on the bed on 100% nonrebreather mask, saturation remains marginal about 88%, remains afebrile, slightly anxious, advised based he hasn't to be on prone position as much as possible, labs reviewed white cell count is 17,000, patient remains on Remdesivir, Decadron, Lovenox August 18 2020, patient seen eval examined during the rounds is still on 5 L high flow oxygen, denies any chest pain breathing difficulties present, denies any cough or sputum production labs chest x-ray reviewed This is a 59-year-old male who has history of diabetes hypertension hypertensive cardiovascular disease and not feeling well for the last 5-6 days with cough and increased shortness of breath started with a sore throat, patient admitted into the hospital was spiking fever up to 101, oxygen saturation 90%, patient already has been started on REM doesn't wear and Decadron, his initial admit x-ray cystoscopy right midlung field and left lower lid feeding infiltrate patient gradually got worse initially has been on room air oxygen requirement keep on going up to 3 L and subsequently on 5 L high flow oxygen with that oxygen saturation is 93%, critical care time spent 35 minutes Objective - Vital Signs Vital signs: Vital Signs Temp 97.4 F L 09/09/20 08:00 Pulse 90 09/09/20 11:00 Resp 24 09/09/20 11:00 BP 134/62 09/09/20 11:00 Pulse Ox 93 L 09/09/20 11:00 Intake & Output 09/08/20 09/09/20 09/09/20 18:59 06:59 18:59 Intake Total 1267.576 702.171 139.439 Output Total 2530 80 10 Balance -1262.424 622.171 129.439 Weight 125.5 kg Intake: IV 419 160 50 Cefepime 1 gm In Sodium 50 Chloride 0.9% 50 ml @ 12. 5 mls/hr IVPB Q12HR [facility] Rx#:[id number] Normal Saline PRessure 39 bag metroNIDAZOLE-NS PMX 500 100 mg In Saline 1 100ml.bag @ 100 mls/hr IVPB Q8HR [facility] Rx#:[id number] sodium chloride @ 10ml hr 230 160 50 Intake, IV Titration 468.576 202.171 89.439 Amount Insulin Regular 100 unit 19.729 In Sodium Chloride 0.9% 100 ml @ Per Protocol IV .Q0M [facility] Rx#:[id number] Norepinephrine 32 mg In 62.737 89.439 Sodium Chloride 0.9% 218 ml @ 0.05 MCG/KG/MIN 2. 866 mls/hr IV .Q24H [facility] Rx#:[id number] propofoL 1,000 mg In 386.110 202.171 Empty Bag 1 bag @ Titrate IV .Q0M [facility] Rx#: [id number] Tube Feeding 200 220 Other 180 120 Output: Chest Tube Drainage 0 0 Chest Tube Right 0 0 Chest Tube Right Upper 0 0 Left Upper Anterior Chest 0 0 Urine 30 80 10 Hemodialysis 2500 Other: Voiding Method Indwelling Catheter Indwelling Catheter Indwelling Catheter # Bowel Movements 1 ABP, PAP, CO, CI - Last Documented Arterial Blood Pressure 118/46 - Exam - Constitutional General appearance: Intubated medically paralyzed on full ventilator support - EENT Eyes: EOMI, PERRLA Ears: bilateral: normal - Neck Neck: normal ROM Carotids: bilateral: upstroke normal Thyroid: bilateral: normal size - Respiratory Respiratory: bilateral: diminished - Cardiovascular Rhythm: regular Heart sounds: normal: S1, S2 - Gastrointestinal General gastrointestinal: normal bowel sounds - Neurologic Neurologic: CNII-XII intact - Musculoskeletal Musculoskeletal: gait normal, generalized weakness, strength equal bilaterally - Psychiatric Psychiatric: Appears, now post medical paralysis - Labs CBC & Chem 7: 09/09/20 04:45 09/09/20 04:45 Labs: Abnormal Lab Results - Last 24 Hours (Table) 09/08/20 09/08/20 09/09/20 Range/Units 13:35 17:32 00:26 WBC (3.8-10.6) k/uL RBC (4.30-5.90) m/uL Hgb (13.0-17.5) gm/dL Hct (39.0-53.0) % RDW (11.5-15.5) % ABG pH (7.35-7.45) ABG pO2 (83-108) mmHg Sodium (137-145) mmol/L Carbon Dioxide (22-30) mmol/L BUN (9-20) mg/dL Creatinine (0.66-1.25) mg/dL Glucose (74-99) mg/dL POC Glucose (mg/dL) 175 H 144 H 110 H (75-99) mg/dL Calcium (8.4-10.2) mg/dL 09/09/20 09/09/20 09/09/20 Range/Units 04:45 04:45 04:50 WBC 16.9 H (3.8-10.6) k/uL RBC 2.80 L (4.30-5.90) m/uL Hgb 8.3 L (13.0-17.5) gm/dL Hct 24.2 L (39.0-53.0) % RDW 15.6 H (11.5-15.5) % ABG pH 7.29 L (7.35-7.45) ABG pO2 82 L (83-108) mmHg Sodium 136 L (137-145) mmol/L Carbon Dioxide 21 L (22-30) mmol/L BUN 68 H (9-20) mg/dL Creatinine 5.45 H (0.66-1.25) mg/dL Glucose 121 H (74-99) mg/dL POC Glucose (mg/dL) (75-99) mg/dL Calcium 7.1 L (8.4-10.2) mg/dL 09/09/20 09/09/20 Range/Units 05:23 12:09 WBC (3.8-10.6) k/uL RBC (4.30-5.90) m/uL Hgb (13.0-17.5) gm/dL Hct (39.0-53.0) % RDW (11.5-15.5) % ABG pH (7.35-7.45) ABG pO2 (83-108) mmHg Sodium (137-145) mmol/L Carbon Dioxide (22-30) mmol/L BUN (9-20) mg/dL Creatinine (0.66-1.25) mg/dL Glucose (74-99) mg/dL POC Glucose (mg/dL) 138 H 136 H (75-99) mg/dL Calcium (8.4-10.2) mg/dL Assessment and Plan Assessment: Multiorgan failure including renal respiratory hematopoietic and cardiovascular Pseudomonas pneumonia Acute renal failure due to acute tubular necrosis related to Covid 19 pneumonia Mediastinal and bilateral pneumothorax Acute hypoxic and hypercapnic respiratory failure Status post respiratory arrest patient intubated on full ventilator support lung protective strategy MSSA pneumonia Bilateral DVT Acute kidney injury likely related to acute tubular necrosis as well as vancomycin associated renal damage on daily dialysis Free air in the abdomen due to mediastinal emphysema and pneumothorax Acute hypoxic respiratory failure Covid 19 pneumonia and ARDS related to that Type 2 diabetes mellitus Hypertension hypertensive cardiovascular disease Dehydration hypovolemia and hyponatremia Depression Overall prognosis is very poor with poor likelihood of recovery Plan: As per family wishes we will initiate comfort care measures when they are ready continue supportive care in the meantime Time with Patient: Greater than 30
[2020-09-09] MEDS ORDERED: DESMOPRESSIN ACETATE IV ONE (13:00)
[2020-09-09] MEDS ORDERED: SODIUM CHLORIDE 0.9% IV ONE (13:00)
[2020-09-09] MEDS: CALCIUM ACETATE 667 MG TAB PO SCH ×3 (13:19→17:08)
[2020-09-09] MEDS: ZINC SULFATE 220 MG CAP PO SCH (13:19)
[2020-09-09] MEDS: SODIUM BICARBONATE TAB 650 MG TAB PO SCH ×2 (13:19→20:02)
[2020-09-09] MEDS: CHOLECALCIFEROL 1,000 UNIT TAB PO SCH (13:19)
[2020-09-09] MEDS: ASCORBIC ACID 500 MG TAB PO SCH (13:19)
[2020-09-09] MEDS: DEXAMETHASONE SOD PHOSPHATE 10 MG/ML 1 ML VIAL IV SCH (13:27)
[2020-09-09] MEDS: CHLORHEXIDINE GLUCONATE 15 ML CUP MUCOUS MEM SCH ×2 (13:27→20:02)
[2020-09-09] MEDS: CEFEPIME 1 GM in SODIUM CHLORIDE 0.9% 50 ML IVPB SCH ×2 (13:27→20:22)
[2020-09-09] MEDS: FAMOTIDINE 20 MG/2 ML VIAL IV SCH (13:28)
--- NOTE | 2020-09-09 14:01 | P.PN ---
Subjective Progress Note Date: 09/09/20 CHIEF COMPLAINT: Free air noted on CT of chest HISTORY OF PRESENT ILLNESS: Patient seen and examined with Dr. gray. Patient is being followed for the pneumoperitoneum which is due to patient's pneumoth orax. Patient remains intubated and sedated in ICU. He is getting hemodialysis today. Patient having issues with oral bleeding and bleeding from IV sites and blood pressure NG tube. Afebrile WBC 16.9 hemoglobin 8.3 PHYSICAL EXAM: VITAL SIGNS: Reviewed. GENERAL: Well-developed in no acute distress. HEENT: No sclera icterus. Extraocular movements grossly intact. Moist buccal mucosa. Head is atraumatic, normocephalic. ABDOMEN: Soft. Nondistended. Nontender. NEUROLOGIC: Intubated and sedated ASSESSMENT: 1. Pneumoperitoneum likely due to pneumothorax 2. Covid 19 infection 3. Bilateral pneumothoraces status post bilateral chest tube placement 4. Acute kidney injury secondary to ATN and vancomycin toxicity. Patient has been started on hemodialysis during this admission 5. Acute hypoxic and hypercapnic respiratory failure 6. Bilateral lower extremity DVT PLAN: -Continue supportive care -No surgical intervention planned Physician [employer] note has been reviewed by physician. Signing provider agrees with the documented findings, assessment, and plan of care. Objective - Vital Signs Vital signs: Vital Signs Temp 97.4 F L 09/09/20 08:00 Pulse 90 09/09/20 11:00 Resp 24 09/09/20 11:00 BP 134/62 09/09/20 11:00 Pulse Ox 93 L 09/09/20 11:00 Intake & Output 09/08/20 09/09/20 09/09/20 18:59 06:59 18:59 Intake Total 1267.576 702.171 139.439 Output Total 2530 80 10 Balance -1262.424 622.171 129.439 Weight 125.5 kg Intake: IV 419 160 50 Cefepime 1 gm In Sodium 50 Chloride 0.9% 50 ml @ 12. 5 mls/hr IVPB Q12HR [facility] Rx#:[id number] Normal Saline PRessure 39 bag metroNIDAZOLE-NS PMX 500 100 mg In Saline 1 100ml.bag @ 100 mls/hr IVPB Q8HR [facility] Rx#:[id number] sodium chloride @ 10ml hr 230 160 50 Intake, IV Titration 468.576 202.171 89.439 Amount Insulin Regular 100 unit 19.729 In Sodium Chloride 0.9% 100 ml @ Per Protocol IV .Q0M [facility] Rx#:[id number] Norepinephrine 32 mg In 62.737 89.439 Sodium Chloride 0.9% 218 ml @ 0.05 MCG/KG/MIN 2. 866 mls/hr IV .Q24H [facility] Rx#:[id number] propofoL 1,000 mg In 386.110 202.171 Empty Bag 1 bag @ Titrate IV .Q0M [facility] Rx#: [id number] Tube Feeding 200 220 Other 180 120 Output: Chest Tube Drainage 0 0 Chest Tube Right 0 0 Chest Tube Right Upper 0 0 Left Upper Anterior Chest 0 0 Urine 30 80 10 Hemodialysis 2500 Other: Voiding Method Indwelling Catheter Indwelling Catheter Indwelling Catheter # Bowel Movements 1 ABP, PAP, CO, CI - Last Documented Arterial Blood Pressure 118/46 - Labs CBC & Chem 7: 09/09/20 04:45 09/09/20 04:45 Labs: Abnormal Lab Results - Last 24 Hours (Table) 09/08/20 09/09/20 09/09/20 Range/Units 17:32 00:26 04:45 WBC 16.9 H (3.8-10.6) k/uL RBC 2.80 L (4.30-5.90) m/uL Hgb 8.3 L (13.0-17.5) gm/dL Hct 24.2 L (39.0-53.0) % RDW 15.6 H (11.5-15.5) % ABG pH (7.35-7.45) ABG pO2 (83-108) mmHg Sodium (137-145) mmol/L Carbon Dioxide (22-30) mmol/L BUN (9-20) mg/dL Creatinine (0.66-1.25) mg/dL Glucose (74-99) mg/dL POC Glucose (mg/dL) 144 H 110 H (75-99) mg/dL Calcium (8.4-10.2) mg/dL 09/09/20 09/09/20 09/09/20 Range/Units 04:45 04:50 05:23 WBC (3.8-10.6) k/uL RBC (4.30-5.90) m/uL Hgb (13.0-17.5) gm/dL Hct (39.0-53.0) % RDW (11.5-15.5) % ABG pH 7.29 L (7.35-7.45) ABG pO2 82 L (83-108) mmHg Sodium 136 L (137-145) mmol/L Carbon Dioxide 21 L (22-30) mmol/L BUN 68 H (9-20) mg/dL Creatinine 5.45 H (0.66-1.25) mg/dL Glucose 121 H (74-99) mg/dL POC Glucose (mg/dL) 138 H (75-99) mg/dL Calcium 7.1 L (8.4-10.2) mg/dL 09/09/20 Range/Units 12:09 WBC (3.8-10.6) k/uL RBC (4.30-5.90) m/uL Hgb (13.0-17.5) gm/dL Hct (39.0-53.0) % RDW (11.5-15.5) % ABG pH (7.35-7.45) ABG pO2 (83-108) mmHg Sodium (137-145) mmol/L Carbon Dioxide (22-30) mmol/L BUN (9-20) mg/dL Creatinine (0.66-1.25) mg/dL Glucose (74-99) mg/dL POC Glucose (mg/dL) 136 H (75-99) mg/dL Calcium (8.4-10.2) mg/dL
[2020-09-09 16:44] LABS: Hemoglobin A1C 8.8 % (4.0-6.0)
[2020-09-09] MEDS: NOREPINEPHRINE 4 MG in SODIUM CHLORIDE 0.9% 250 ML IV SCH (17:08)
[2020-09-09 17:41] LABS: Glucose,Whole Blood 183 mg/dL (75-99)
--- NOTE | 2020-09-09 19:53 | P.PN ---
Subjective Progress Note Date: 09/09/20 Principal diagnosis: COVID Patient continues to have bleeding at site of mouth or if any light touch to mucous membranes. Anticoagulation has not been restarted given the bleeding. Platelets and hemoglobin have remained relatively stable, no severe drop in hemoglobin. Objective - Vital Signs Vital signs: Vital Signs Temp 98.2 F 09/09/20 16:19 Pulse 86 09/09/20 18:00 Resp 35 H 09/09/20 18:00 BP 143/53 09/09/20 16:19 Pulse Ox 97 09/09/20 18:00 Intake & Output 09/09/20 09/09/20 09/10/20 06:59 18:59 06:59 Intake Total 702.171 610.672 Output Total 80 3015 Balance 622.171 -2404.328 Weight 125.5 kg Intake: IV 160 180 Cefepime 1 gm In Sodium 50 Chloride 0.9% 50 ml @ 12. 5 mls/hr IVPB Q12HR [facility] Rx#:[id number] sodium chloride @ 10ml hr 160 130 Intake, IV Titration 202.171 360.672 Amount Desmopressin Acetate 38 50 mcg In Sodium Chloride 0. 9% 50 ml @ 200 mls/hr IV ONCE ONE Rx#:[id number] Norepinephrine 32 mg In 89.439 Sodium Chloride 0.9% 218 ml @ 0.05 MCG/KG/MIN 2. 866 mls/hr IV .Q24H [facility] Rx#:[id number] propofoL 1,000 mg In 202.171 221.233 Empty Bag 1 bag @ Titrate IV .Q0M [facility] Rx#: [id number] Tube Feeding 220 40 Other 120 30 Output: Chest Tube Drainage 0 Chest Tube Right 0 Chest Tube Right Upper 0 Left Upper Anterior Chest 0 Urine 80 15 Hemodialysis 3000 Other: Voiding Method Indwelling Catheter Indwelling Catheter ABP, PAP, CO, CI - Last Documented Arterial Blood Pressure 122/48 - Exam - Constitutional Sedated, on vent - EENT ENT: other (Small amount of bright blood in visible oral cavity. Mild tongue swelling) - Neck Neck: no lymphadenopathy Thyroid: bilateral: normal size - Respiratory Respiratory: bilateral: CTA - Cardiovascular Rhythm: regular Heart sounds: normal: S1, S2 - Gastrointestinal Stool collection system, with watery greenish brown stool General gastrointestinal: decreased bowel sounds, soft - Integumentary Integumentary: normal - Neurologic Sedated, on vent - Musculoskeletal Upper and lower extremity edema Musculoskeletal: generalized weakness - Psychiatric Related, on ventilator - Labs CBC & Chem 7: 09/09/20 04:45 09/09/20 04:45 Labs: Abnormal Lab Results - Last 24 Hours (Table) 09/09/20 09/09/20 09/09/20 Range/Units 00:26 04:45 04:45 WBC 16.9 H (3.8-10.6) k/uL RBC 2.80 L (4.30-5.90) m/uL Hgb 8.3 L (13.0-17.5) gm/dL Hct 24.2 L (39.0-53.0) % RDW 15.6 H (11.5-15.5) % ABG pH (7.35-7.45) ABG pO2 (83-108) mmHg Sodium (137-145) mmol/L Carbon Dioxide (22-30) mmol/L BUN (9-20) mg/dL Creatinine (0.66-1.25) mg/dL Glucose (74-99) mg/dL POC Glucose (mg/dL) 110 H (75-99) mg/dL Hemoglobin A1c 8.8 H (4.0-6.0) % Calcium (8.4-10.2) mg/dL 09/09/20 09/09/20 09/09/20 Range/Units 04:45 04:50 05:23 WBC (3.8-10.6) k/uL RBC (4.30-5.90) m/uL Hgb (13.0-17.5) gm/dL Hct (39.0-53.0) % RDW (11.5-15.5) % ABG pH 7.29 L (7.35-7.45) ABG pO2 82 L (83-108) mmHg Sodium 136 L (137-145) mmol/L Carbon Dioxide 21 L (22-30) mmol/L BUN 68 H (9-20) mg/dL Creatinine 5.45 H (0.66-1.25) mg/dL Glucose 121 H (74-99) mg/dL POC Glucose (mg/dL) 138 H (75-99) mg/dL Hemoglobin A1c (4.0-6.0) % Calcium 7.1 L (8.4-10.2) mg/dL 09/09/20 09/09/20 Range/Units 12:09 17:37 WBC (3.8-10.6) k/uL RBC (4.30-5.90) m/uL Hgb (13.0-17.5) gm/dL Hct (39.0-53.0) % RDW (11.5-15.5) % ABG pH (7.35-7.45) ABG pO2 (83-108) mmHg Sodium (137-145) mmol/L Carbon Dioxide (22-30) mmol/L BUN (9-20) mg/dL Creatinine (0.66-1.25) mg/dL Glucose (74-99) mg/dL POC Glucose (mg/dL) 136 H 183 H (75-99) mg/dL Hemoglobin A1c (4.0-6.0) % Calcium (8.4-10.2) mg/dL Assessment and Plan Plan: Assessment and Plan: Bleeding Diathesis - - Component of enhanced anticoagulant effect of Lovenox as primary etiology, as well as a lesser component of heparin due to the patient's renal insufficiency. - Likely portion of platelet dysfunction due to renal failure. - Clinically he continues to have oozing of blood from mucous membranes and IV sites, although does not appear to be having any increased bleeding. - Drop in hemoglobin continues and is now 8. - Platelet counts continue to remain within normal. - No coagulopathy noted on labs. Recheck Coags in am - Anti-X A has been ordered and is pending. I have discussed with lab to expedite and re-order placed. This is a send out test, results may be delayed. - Await XA prior to resuming anti-coagulation and stabilization of hemoglobin - Continue to monitor coagulation parameters, Daily CBC, to check for any development of DIC-type phenomenon related to his underlying COVID - DDAVP given today for the bleeding. CBC, Coags in am
[2020-09-09 19:57] LABS: Glucose,Whole Blood 198 mg/dL (75-99)
[2020-09-09] MEDS: INSULIN DETEMIR (LEVEMIR) 100 UNIT/ML SYR SQ SCH (20:01)
[2020-09-09] MEDS: ASPIRIN 81 MG PO SCH (20:02)
--- NOTE | 2020-09-09 22:44 | PN ---
PROGRESS NOTE DATE OF SERVICE: 09/09/2020 REASON FOR FOLLOWUP: Pneumonia. INTERVAL HISTORY: The patient remains afebrile. The patient is hemodynamically stable. The patient's FiO2 was cut down to 40%. No significant purulent secretions through the ET or any diarrhea reported by the nursing staff. PHYSICAL EXAMINATION: On examination, blood pressure 154/54 with a pulse of 90, temperature 98. He is 95% on 40% FiO2. General description is a middle-aged male, intubated on the vent. RESPIRATORY SYSTEM: Unlabored breathing with decreased breath sounds at the base. No wheeze. HEART: S1, S2. Regular rate and rhythm. ABDOMEN: Soft. No tenderness. LABS: Hemoglobin 8.8, white count 16.9. BUN of 68, creatinine 5.45. DIAGNOSTIC IMPRESSION AND PLAN: Patient with acute respiratory failure which is multifactorial in this patient who did have a component of pneumonia. Sputum initially MSSA. Repeat is now showing pseudomonas. The patient is covered cefepime in this patient who did have an underlying COVID infection and multi-organ failure. Prognosis remains guarded. Plan is for possible Monday. supportive care and antibiotics. Continue with supportive care. MMODL / IJN: [id number] /
[2020-09-09 23:10] LABS: Glucose,Whole Blood 186 mg/dL (75-99)
[2020-09-10 03:54] LABS: Anisocytosis Slight; Basophils % (A) 0 %; Eosinophils # (A) 0.4 k/uL (0-0.7); Eosinophils % (A) 3 %; HCT 22.5 % (39.0-53.0); HGB 7.3 gm/dL (13.0-17.5); Lymphocytes # (A) 0.4 k/uL (1.0-4.8); Lymphocytes % (A) 3 %; MCHC 32.4 g/dL (31.0-37.0); MCV 86.2 fL (80.0-100.0); Monocytes # (A) 0.4 k/uL (0-1.0); Monocytes % (A) 3 %; Neutrophils # (A) 12.2 k/uL (1.3-7.7); Neutrophils % (A) 91 %; Platelet Count 184 k/uL (150-450); Poikilocytosis Slight; RBC 2.61 m/uL (4.30-5.90); WBC 13.5 k/uL (3.8-10.6)
[2020-09-10 04:14] LABS: D-Dimer 4.52 mg/L FEU (<0.60); Partial Thromboplastin Time 23.1 sec (22.0-30.0); Prothrombin Time 10.1 sec (9.0-12.0)
[2020-09-10 04:19] LABS: Albumin 2.1 g/dL (3.5-5.0); Potassium 3.6 mmol/L (3.5-5.1); Total Bilirubin 0.4 mg/dL (0.2-1.3); Total Protein 4.7 g/dL (6.3-8.2)
[2020-09-10] MEDS ORDERED: POTASSIUM CHLORIDE 20 MEQ in WATER FOR INJECTION 1 100ML.BAG IVPB ONE (05:00)
[2020-09-10 05:43] LABS: ABG Base Excess -4.3 mmol/L; ABG HCO3 22 mmol/L (21-25); ABG Oxygen Saturation 95.5 % (94-97); ABG PCO2 45 mmHg (35-45); ABG PO2 79 mmHg (83-108); ABG TCO2 23 mmol/L (19-24); Allen Test Performed? Yes
[2020-09-10 06:04] LABS: Glucose,Whole Blood 174 mg/dL (75-99)
[2020-09-10] MEDS: NOREPINEPHRINE 4 MG in SODIUM CHLORIDE 0.9% 250 ML IV SCH ×2 (06:12→16:16)
[2020-09-10] MEDS: INSULIN ASPART (NovoLOG) 100 UNIT/ML VIAL SQ SCH ×3 (06:13→17:34)
[2020-09-10] MEDS: CALCIUM ACETATE 667 MG TAB PO SCH ×3 (06:42→16:33)
--- NOTE | 2020-09-10 07:51 | XR ---
EXAMINATION TYPE: XR chest 1V portable DATE OF EXAM: 09/10/2020 COMPARISON: 09/09/2020 INDICATION: Intubated TECHNIQUE: Single frontal view of the chest is obtained. FINDINGS: The heart size is normal. The pulmonary vasculature is within normal limits. Is diffuse increased lung markings bilaterally. Chest tube catheter on the left is curled in the lateral left midlung. Right-sided chest tubes remain stable in position no large pneumothorax is evident. There is extensive subcutaneous emphysema. Naso gastric tube transverses the thorax. Endotracheal tube tip is above the mauro. IMPRESSION: 1. Lines and catheters discussed above. No large pneumothorax is evident. 2. Diffuse patchy infiltrate present bilaterally stable
[2020-09-10] MEDS: metroNIDAZOLE 500 MG TAB PO SCH ×2 (08:50→16:33)
[2020-09-10] MEDS: SODIUM BICARBONATE TAB 650 MG TAB PO SCH ×2 (08:50→19:51)
[2020-09-10] MEDS: CHLORHEXIDINE GLUCONATE 15 ML CUP MUCOUS MEM SCH ×2 (08:50→19:51)
[2020-09-10] MEDS: FAMOTIDINE 20 MG/2 ML VIAL IV SCH (08:51)
[2020-09-10] MEDS: CHOLECALCIFEROL 1,000 UNIT TAB PO SCH (08:51)
[2020-09-10] MEDS: CEFEPIME 1 GM in SODIUM CHLORIDE 0.9% 50 ML IVPB SCH ×2 (08:51→19:51)
[2020-09-10] MEDS: ASCORBIC ACID 500 MG TAB PO SCH (08:51)
[2020-09-10] MEDS: ZINC SULFATE 220 MG CAP PO SCH (08:51)
[2020-09-10] MEDS: DEXAMETHASONE SOD PHOSPHATE 10 MG/ML 1 ML VIAL IV SCH (08:52)
[2020-09-10] MEDS: CISATRACURIUM 200 MG in SODIUM CHLORIDE 0.9% 180 ML IV SCH (09:39)
--- NOTE | 2020-09-10 10:48 | P.PN ---
Subjective Progress Note Date: 09/10/20 Principal diagnosis: Right spontaneous pneumothorax status post 2 chest tubes Pneumomediastinum Left spontaneous pneumothorax Acute hypoxic respiratory failure Covid 19 pneumonia Type 2 diabetes mellitus Hypertension hypertensive cardiovascular disease Dehydration hypovolemia and hyponatremia Depression 09/10/2020, patient seen eval examined during the rounds labs reviewed medications reviewed care plan discussed with the staff at length, patient remains on the full ventilator support with a rate of 34 tidal volume is 550 PEEP is 12 oxygen is 50%, still have air leaks pretty much on the right side left-sided intermittent, patient is scheduled to get dialysis later on today, patient will have initiation of comfort care tomorrow, 2 days off of levo fed drip now, his the white cell count is down to 13,000 hemoglobin is stable 7.3, d-dimer is 4.5, arterial blood gas revealed pH of 7.3 pCO2 45 pO2 79, BUN/creatinine in spite of daily dialysis still high 59/4.54 09/09/2020, patient seen eval reexamined during the rounds labs reviewed medications reviewed care plan discussed with the staff at length, critical care time spent 35 minutes, patient just finished hemodialysis more than 2.5 L have been removed, patient remains off of Nimbex drip on propofol, currently patient is on controlled mechanical ventilation with a rate of 34 tidal volume of 550, PEEP is 12, oxygen is 50%, still have air leak on the right side board chest use present, air leak has improved very minimal occasional on the left side is noted, still have mediastinal emphysema on chest x-ray and bilateral interstitial infiltrate, labs reviewed, is having issues with the oral bleeding is more like a posing some of the bleeding has been noted from the IV sites and PICC line sides, dark bloods have been through the NG tube, patient remains on now Decadron, broad-spectrum antibiotics for staph MSSA and Pseudomonas pneumonia, patient is due for tracheostomy and PEG tube but given t he high amount of mediastinal air and air leaks less likely to retain the tracheostomy afraid that we'll developed complications, on the other hand I have discussed with , about trach and PEG she absolutely declined it, in fact she is leaning towords comfort measures, 09/08/2020, patient seen eval examined during the rounds labs reviewed medications reviewed care plan discussed, patient remains intubated sedated with propofol, chest tubes are they're not much change still have air leak is p resent, chest x-ray reviewed patient had a dialysis yesterday 2.5 L have been removed remains on vasopressors and full ventilator support, PEEP is 12 tidal volume is 500, with assist control mode, chest x-ray not much change, message left for the awaiting her response, FiO2 is 50% oxygen saturation is 91%, continue supportive care critical care time spent 35 minutes 09/07/2020, patient seen eval examined during the round FiO2 has been escalated to 60% patient does have occasional cough leak with intermittent drop in volumes, overall ventilator setting remains stable remains on assist control rate of 34 tidal volume 550, PEEP of 12 with an FiO2 of 60%, saturation remains 88-90%, patient likely will need the ET tube exchange, undergoing hemodialysis being planned for removal of 2.5 L, patient remains on the propofol drip and Nimbex has been discontinued, also on levo fed and insulin drip, hemodynamic status stable with a small amount of levo fed, chest x-ray reviewed, ET tube and OG tube as well as multiple chest tube was stable, no significant pneumothorax seen, the subcu emphysema and mediastinal emphysema remains unchanged, patient remains on broad-spectrum antibiotics for MSSA and Pseudomonas pneumonia 09/06/2020, patient seen eval examined during the rounds he remains medically paralyzed and sedated with propofol drip and Nimbex drip, patient remains on full ventilator support however able to decrease oxygen to 50%, patient is on assist control rate of 34 PEEP of 12, oxygen 50%, tidal volume 550, he is due for dialysis tomorrow, patient is still have intermittent clots suctioned from the mouth, appears to be old, bilateral stable chest tube chest x-ray from this morning reviewed care leak is present on the right side left-sided no air leak is present, patient remains on IV antibiotics and Decadron also on insulin drip levo fed drip, labs from today reviewed WBC is 20,000, hemoglobin remained stable 8.6, arterial blood gas revealed pH of 7.24 pCO2 [place] pO2 66, sodium 134 potassium 4.5 BUN/creatinine slightly improved 70 and 4.93, his LDH remains over 1100, C-reactive protein 54.9, ferritin also remains over 1100, chest x-ray reviewed stable PICC line NG tube and ET tube, 2 chest tube on the right side remains stable as well as the left side, no obvious significant pneumothorax seen, subcu and mediastinal emphysema continued to improve, patient is only on aspirin will be resumed on heparin drip most likely tomorrow 09/05/2020, patient seen eval examined during the rounds labs reviewed medications reviewed care plan discussed, bleeding through the endotracheal tube OG tube and oral have significantly improve old blood has been seen patient has been evaluated by hematology recommended to stop anticoagulation factor X A has been sent which will take another 3 or 4 days, for anticoagulation consider heparin restarting up in about 1-2 days, hemodynamics remains marginal patient continued to have intermittent episodes of hypertension, they were noted more during dialysis, current dialysis going on appears to be uneventful, patient remains on 80% oxygen with assist control rate of 34, tidal volume of 5 5012 of PEEP, patient remains on propofol Nimbex and insulin drip, the 3 chest tubes are in chest x-ray reviewed no significant pneumothorax seen minimal subcutaneous emphysema and mediastinal emphysema leaving the left chest tube the right-sided chest tube are leaking air, patient remains on tube feeding, patient remains on IV cephapime for the MSSA pneumonia, new double-lumen PICC line has been inserted, patient also on levo fed to keep systolic blood pressure is stable range, white cell count is 20,000 hemoglobin slowly declining is 9 today, arterial blood gases reviewed pH is 725 with pCO2 48 pO2 120, sodium was 133 potassium is 4.3 BUN/creatinine 75 and 5.11, patient has a mixed respiratory and metabolic acidosis 09/04/2020, patient seen eval examined, labs reviewed medications reviewed care plan discussed with the staff and primary care service as well, patient has a significant drop in volumes on ventilator significant air leak has been noted, ET tube has been changed by anesthesia, volume 7 improved however some desaturation noted requiring increase in oxygen saturation, patient however hemodynamically marginal is now requiring levo fed drip, right-sided chest tube continued to air leak significantly, sided chest tube was stable, noted however basal hip is still in, 09/03/2020, patient seen eval reexamined during the rounds labs reviewed medications reviewed care plan discussed, patient has significant amount of bleeding through the mouth with clumps and clots bright red in addition has been bleeding from the NG tube and ET tube as well, heparin has been stopped, next dose of Lovenox will hold it, repeat CBC is pending hemodynamics are stable, patient is scheduled to get a PICC line, currently patient is on assist control rate of 34 PEEP of 12 tidal volume of 550, 70% oxygen, saturation are 90-92%, the still have significant air leak from the right-sided apical chest tube at the bottom left-sided no significant air leak has been present, patient is getting IV cephapirin for the MSSA in the sputum, IV Diflucan and Flagyl has been admitted for suspicion of bowel perforation however the free air in the abdomen is due to thoracic air mediastinal and pleural escaped into the abdominal cavity, patient has been tolerating tube feed well, he remains medically paralyzed with propofol and Nimbex, white cell count is 18,000 yesterday CBC 10.7 today's labs are not done, PTT was 157, arterial blood gas reviewed pH is 7.2 with pCO2 53 oxygen is 70, patient continued to get hemodialysis per nephrology, 09/02/2020, patient seen eval examined during the rounds labs reviewed medications reviewed, remains sedated on propofol as well as Nimbex, full ventilator support, patient is a 80% oxygen sats are 90%, rate is 34 PEEP is 12, the CAT scan of the lungs consistent with ARDS, patient is getting hemodialysis currently, duplex ultrasound was back positive for bilateral DVT Lovenox increased to 60 mg twice a day, patient continued to have intermittent leak from the right-sided upper chest tube no significant leak is present on bottom 1, no leak has been seen from the left side 1, and cell count remains elevated with stable hemoglobin arterial blood gas shows respiratory acidosis with CO2 55, BUN/creatinine is 107/4.8, prognosis is guarded with likelihood of recovery is poor continue supportive care 09/01/2020, patient seen eval examined care plan discussed with the staff at length, patient remains on 100% oxygen assist control rate of 34 tidal volume of the 500 PEEP of 12, patient had second cycle hemodialysis today 500 mL was removed yesterday 1.5 L was removed, patient was found to have free air in the abdomen by a chest CT, no hollow viscus perforation have been noted, here appears to be thoracic air escaping into the abdominal cavity, patient has minimal pneumothorax on the right side with a stable chest tube in the pleural space draining air right upper chest tube continued to drain area continuously however lower chest tube intermittently, patient has extensive pneumomediastinum by CAT scan, left-sided pneumothorax significantly improved minimal or no air leak has been present on the left chest tube, white cell count is up to 22,000, ABG slightly improved and better pH is 7.21, potassium is 5.5, BUN/creatinine was up to 133 and 6.5 postdialysis labs are pending, patient is resumed back on tube feed post second dialysis sats have improved to 96% will titrate oxygen down as tolerated to keep saturation over 92%, critical care time spent 40 minutes 08/31/2020, patient seen eval examined during the rounds labs reviewed medications reviewed care plan discussed with the staff at length, remains medically paralyzed with propofol and Nimbex drip, chest tubes is still significantly leaking on the right side lungs are well expanded though, minimum leak is present at the base, cardiothoracic surgery is have recommended to follow it up closely, no active intervention has been recommended, renal function continued to get worse, patient has been getting diuresis with loop diuretics, would recommend to discontinue it patient remains on bicarb drip, along with anticoagulation, when setting remains stable assist control rate of 24 deep of 12 tidal volume 500 with 100% oxygen, saturation is just a 88-90%, continue broad-spectrum antibiotics and supportive care long-term prognosis poor will defer decision about dialysis to the family and renal services 08/30/2020, patient seen eval examined during the rounds medically sedated and paralyzed of propofol and Nimbex, on full ventilator support with assist control rate of 24 EP is 1200% oxygen which has been reduced to 90% now, saturation 91- 92%, bilateral chest tubes are present minimal air leak on the left side, right- sided apical tube still having persistent nearly however distal intermittently, tolerating tube feed well, labs reviewed arterial blood gas reviewed as well along with radiographic findings patient BUN/creatinine continue to go up consistent with acute tubular necrosis likely related to covid 19 sepsis, arterial blood gases revealed pH is 7.18 pCO2 54 pO2 90, patient improved to 5.4, BUN/creatinine up to 132 and 5.86 08/29/2020, patient seen eval examined during the rounds labs reviewed medications reviewed care plan discussed with the staff including RN and respiratory therapy at length, saturation remains borderline however they were 90% in the morning came down to 84% increasing PEEP causes rapid increase in peak air pressure and platue pressure up to 55 and 35, PEEP lowered to 12, patient remains on 100% oxygen with full assist control mode, arterial blood gases reviewed and significant metabolic acidosis appears to be related to acute renal failure, renal services have been consulted, patient appears to have nonoliguric acute renal failure likely acute tubular necrosis, patient remains gently hydrated to feed and given, remains afebrile, white cell count remains on higher side hemoglobin stable, arterial blood gases noted to be to be pH of 7.18 pCO2 53 pO2 70, 1 amp of bicarb along with bicarb drip have been initiated, potassium running on the higher side of 5.8, inflammatory parameters slightly down of thousand today LDH and C-reactive protein remains elevated, sputum for positive for a MSSA, vancomycin has been discontinued which may be contributing to acute kidney injury, patient remains on the propofol as well as Nimbex drip, patient has 2 chest tubes on the right side and one chest tube on the left side due to pneumomediastinum and bilateral pneumothorax they've been aching is minimal on left and right bottom chest tube significant on apical chest tube however 08/28/2020, patient seen eval examined during the rounds labs reviewed medica tions reviewed, currently patient is on ventilator support PEEP of 10, 90% oxygen, assist control rate of 30, care blood gases reviewed, chest x-ray reviewed, minimal bilateral apical pneumothorax is present, stable left-sided chest U no air leak is present, right-sided apical tube continued to bubble significant air leak, bottom minimal, patient is medically paralyzed with propofol and Nimbex, laboratory data reviewed discussed at length with the staff 08/27/2020, patient seen eval examined during the rounds sedated and medically paralyzed, right-sided chest tube is still significantly and leak upper tube is present no significantly is seen in the 1 and also left side, labs and arterial blood gases reviewed and ventilator adjusted, chest U was stable on chest x-ray, apical very small pneumothorax, 08/26/2020, patient seen eval examined during the rounds labs reviewed medications reviewed, chest tube continue to gently air, patient intubated, on full ventilator support noted evidence of hypercapnia with increase the ventilation C orders, chest x-ray reviewed trace pneumothorax on the apex cannot be excluded, basal bilateral dense infiltrate with mediastinal emphysema, no s ignificant pneumothorax seen, labs reviewed, critical care time 35 minutes 08/25/2020, patient seen eval examined during the rounds labs reviewed medications reviewed care plan discussed with the staff, patient had a respiratory arrest earlier this morning during which he pulled out his BiPAP machine oxygen saturation dropped down into 20s, he also tried to pull out his chest tube, during that process he was intubated, postintubation chest x-ray shows minimal pneumothorax on the right side left-sided pneumothorax or anterior posterior cannot be excluded, extensive pneumomediastinum is present, patient currently and placed on the propofol at 75 mics was very restless and agitated, tachypneic tachycardic and eventually medically paralyzed with Nimbex drip, respiratory status slightly more stable patient is more calm and now hemodynamics stable, has been getting IV fluids, will need a chest tube on the the left side to avoid tension pneumothorax, keep the 2 chest tube on the right side 1 direct towards the apex appears to be stable however one at the base of the lung is still in, dense bilateral infiltrate are present, white cell count is up to 34,000, arterial blood gas and chest x-ray reviewed consistent with respiratory and metabolic acidosis, with severe hypoxia requiring PEEP with high ventilatory rate 08/24/2020, patient seen eval examined during the rounds labs reviewed medications reviewed sitting upright on the bed, remains on BiPAP with 100% oxygen, saturation 95%, patient desaturated into goes on the right side down and intermittently during supine posture, however do better with left side up, and sitting up as well, chest x-ray from today reviewed pneumothorax recurred on the right side in spite of 2 chest tube aiming towards the apex and the base with significant air leak, small left apical pneumothorax however is stable, patient is awaiting evaluation from thoracic surgery for possible VATS or transfer to tertiary care center, left side and INR will put a small bore pigtail catheter at the apex later on this morning, patient remains afebrile slightly tachycardic tachypneic, inflammatory parameters still up, prognosis is guarded care plan discussed directly and indirectly with primary service, staff, cardiothoracic and IR 08/23/2020, patient seen eval reexamined during the rounds labs reviewed medications reviewed, oxygen saturation remained stable, however patient couldn't tolerate off of BiPAP, he remains on BiPAP. All, chest x-ray reviewed, patient hasn't to right-sided chest tube air leak is present from both, left- sided residual small pneumothorax present along with subcutaneous emphysema and mediastinal emphysema, interventional radiology could not do a chest tube on the left side, they are planning to do it tomorrow, white cell count decreased to 19,000, d-dimer is still elevated inflammatory parameters elevated consistent with cytokine nita 08/22/2020, patient seen eval reexamined significant desaturation was more no alaina, sats dropped down to 55-70% spontaneously comes right back up though currently on 93% BiPAP, Semiprone with the right side up patient cannot tolerate airvo, desaturated easily remains tachypneic tachycardic hemodynamic status however remains stable, chest x-ray findings reviewed in spite of right-sided chest tube and persistent air leak there is a persistent spontaneous pneumothorax fairly large on the right side and small apical left sided spontaneous pneumothorax noted with pneumomediastinum and bilateral dense infiltrate at the bases, thoracic surgery has been consulted, patient may need an another chest tube on the right side versus VATS and preferably and of the small chest U was on the left side, will defer to expertise of thoracic surgery, labs reviewed medications reviewed care plan discussed at length with the staff 08/21/2020, patient seen eval examined during the rounds sitting upright in chair breathing slightly better oxygen saturation is 87-88%, patient is on high flow oxygen along with the nonrebreather mass, tachypneic tachycardic blood pressure is slightly high, patient has a right-sided chest tube is still leaking air, chest x-ray reviewed bilateral infiltrate is present with residual pneumothorax and subcu emphysema, labs from today reviewed white cell count remains elevated 20,000, renal functions stable, will attempt semi-prone with right side up, we will obtain an transfuse convalescent plasma 08/20/2020, patient seen eval examined during the rounds a labs reviewed medications reviewed this morning patient had problems with agitated anxiety and a prehension, oxygen saturation dropped down into 70s, rapid response was called and stat chest x-ray revealed presence of pneumothorax which is significant on the right side as well they may be a small mediastinal emphysema on the left side as well, patient has been made semi-prone with that oxygen saturation 100% nonrebreather mask improved to 92% patient is more calm, he remains afebrile temperature is 98.3 respiratory rate and mid to high 20s, weight is oxygen saturation 94%, chest x-ray finding reviewed 08/19/2020, patient seen eval examined during the rounds labs reviewed medications reviewed care plan discussed, patient is sitting upright on the bed on 100% nonrebreather mask, saturation remains marginal about 88%, remains afebrile, slightly anxious, advised based he hasn't to be on prone position as much as possible, labs reviewed white cell count is 17,000, patient remains on R emdesivir, Decadron, Lovenox August 18 2020, patient seen eval examined during the rounds is still on 5 L high flow oxygen, denies any chest pain breathing difficulties present, denies any cough or sputum production labs chest x-ray reviewed This is a 59-year-old male who has history of diabetes hypertension hypertensive cardiovascular disease and not feeling well for the last 5-6 days with cough and increased shortness of breath started with a sore throat, patient admitted into the hospital was spiking fever up to 101, oxygen saturation 90%, patient already has been started on REM doesn't wear and Decadron, his initial admit x-ray cystoscopy right midlung field and left lower lid feeding infiltrate patient gradually got worse initially has been on room air oxygen requirement keep on g oing up to 3 L and subsequently on 5 L high flow oxygen with that oxygen saturation is 93%, critical care time spent 35 minutes Objective - Vital Signs Vital signs: Vital Signs Temp 97.9 F 09/10/20 08:00 Pulse 89 09/10/20 09:00 Resp 20 09/10/20 09:00 BP 134/62 09/10/20 09:00 Pulse Ox 95 09/10/20 09:00 Intake & Output 09/09/20 09/10/20 09/10/20 18:59 06:59 18:59 Intake Total 098.468 1540.405 301 Output Total 3015 30 0 Balance -2404.328 1142.405 301 Weight 123.8 kg Intake: IV 180 326 69 Cefepime 1 gm In Sodium 50 50 Chloride 0.9% 50 ml @ 12. 5 mls/hr IVPB Q12HR [facility] Rx#:[id number] Normal Saline PRessure 36 9 bag sodium chloride @ 10ml hr 130 240 60 Intake, IV Titration 360.672 382.405 100 Amount Desmopressin Acetate 38 50 mcg In Sodium Chloride 0. 9% 50 ml @ 200 mls/hr IV ONCE ONE Rx#:[id number] Norepinephrine 32 mg In 89.439 11.661 Sodium Chloride 0.9% 218 ml @ 0.05 MCG/KG/MIN 2. 866 mls/hr IV .Q24H [facility] Rx#:[id number] Norepinephrine 4 mg In 67.983 Sodium Chloride 0.9% 250 ml @ 0.05 MCG/KG/MIN 23. 908 mls/hr IV .[id number] [facility] Rx#:[id number] propofoL 1,000 mg In 221.233 302.761 100 Empty Bag 1 bag @ Titrate IV .Q0M [facility] Rx#: [id number] Tube Feeding 40 374 102 Other 30 90 30 Output: Urine 15 30 0 Hemodialysis 3000 Other: Voiding Method Indwelling Catheter Indwelling Catheter ABP, PAP, CO, CI - Last Documented Arterial Blood Pressure 134/46 - Exam - Constitutional General appearance: Intubated medically paralyzed on full ventilator support - EENT Eyes: EOMI, PERRLA Ears: bilateral: normal - Neck Neck: normal ROM Carotids: bilateral: upstroke normal Thyroid: bilateral: normal size - Respiratory Respiratory: bilateral: diminished - Cardiovascular Rhythm: regular Heart sounds: normal: S1, S2 - Gastrointestinal General gastrointestinal: normal bowel sounds - Neurologic Neurologic: CNII-XII intact - Musculoskeletal Musculoskeletal: gait normal, generalized weakness, strength equal bilaterally - Psychiatric Psychiatric: Appears, now post medical paralysis - Labs CBC & Chem 7: 09/10/20 03:40 09/10/20 09:27 Labs: Abnormal Lab Results - Last 24 Hours (Table) 09/09/20 09/09/20 09/09/20 Range/Units 04:45 12: 17:37 WBC (3.8-10.6) k/uL RBC (4.30-5.90) m/uL Hgb (13.0-17.5) gm/dL Hct (39.0-53.0) % RDW (11.5-15.5) % Neutrophils # (1.3-7.7) k/uL Lymphocytes # (1.0-4.8) k/uL Fibrinogen (200-500) mg/dL D-Dimer (<0.60) mg/L FEU ABG pH (7.35-7.45) ABG pO2 (83-108) mmHg Sodium (137-145) mmol/L BUN (9-20) mg/dL Creatinine (0.66-1.25) mg/dL Glucose (74-99) mg/dL POC Glucose (mg/dL) 136 H 183 H (75-99) mg/dL Hemoglobin A1c 8.8 H (4.0-6.0) % Calcium (8.4-10.2) mg/dL Alkaline Phosphatase (38-126) U/L Total Protein (6.3-8.2) g/dL Albumin (3.5-5.0) g/dL 09/09/20 09/09/20 09/10/20 Range/Units 19:56 23:09 03:40 WBC (3.8-10.6) k/uL RBC (4.30-5.90) m/uL Hgb (13.0-17.5) gm/dL Hct (39.0-53.0) % RDW (11.5-15.5) % Neutrophils # (1.3-7.7) k/uL Lymphocytes # (1.0-4.8) k/uL Fibrinogen 560 H (200-500) mg/dL D-Dimer 4.52 H (<0.60) mg/L FEU ABG pH (7.35-7.45) ABG pO2 (83-108) mmHg Sodium (137-145) mmol/L BUN (9-20) mg/dL Creatinine (0.66-1.25) mg/dL Glucose (74-99) mg/dL POC Glucose (mg/dL) 198 H 186 H (75-99) mg/dL Hemoglobin A1c (4.0-6.0) % Calcium (8.4-10.2) mg/dL Alkaline Phosphatase (38-126) U/L Total Protein (6.3-8.2) g/dL Albumin (3.5-5.0) g/dL 09/10/20 09/10/20 09/10/20 Range/Units 03:40 03:40 05:36 WBC 13.5 H (3.8-10.6) k/uL RBC 2.61 L (4.30-5.90) m/uL Hgb 7.3 L (13.0-17.5) gm/dL Hct 22.5 L (39.0-53.0) % RDW 16.0 H (11.5-15.5) % Neutrophils # 12.2 H (1.3-7.7) k/uL Lymphocytes # 0.4 L (1.0-4.8) k/uL Fibrinogen (200-500) mg/dL D-Dimer (<0.60) mg/L FEU ABG pH 7.30 L (7.35-7.45) ABG pO2 79 L (83-108) mmHg Sodium 132 L (137-145) mmol/L BUN 59 H (9-20) mg/dL Creatinine 4.54 H (0.66-1.25) mg/dL Glucose 153 H (74-99) mg/dL POC Glucose (mg/dL) (75-99) mg/dL Hemoglobin A1c (4.0-6.0) % Calcium 7.0 L (8.4-10.2) mg/dL Alkaline Phosphatase 137 H (38-126) U/L Total Protein 4.7 L (6.3-8.2) g/dL Albumin 2.1 L (3.5-5.0) g/dL 09/10/20 Range/Units 06:03 WBC (3.8-10.6) k/uL RBC (4.30-5.90) m/uL Hgb (13.0-17.5) gm/dL Hct (39.0-53.0) % RDW (11.5-15.5) % Neutrophils # (1.3-7.7) k/uL Lymphocytes # (1.0-4.8) k/uL Fibrinogen (200-500) mg/dL D-Dimer (<0.60) mg/L FEU ABG pH (7.35-7.45) ABG pO2 (83-108) mmHg Sodium (137-145) mmol/L BUN (9-20) mg/dL Creatinine (0.66-1.25) mg/dL Glucose (74-99) mg/dL POC Glucose (mg/dL) 174 H (75-99) mg/dL Hemoglobin A1c (4.0-6.0) % Calcium (8.4-10.2) mg/dL Alkaline Phosphatase (38-126) U/L Total Protein (6.3-8.2) g/dL Albumin (3.5-5.0) g/dL Assessment and Plan Assessment: Multiorgan failure including renal respiratory hematopoietic and cardiovascular Pseudomonas pneumonia Acute renal failure due to acute tubular necrosis related to Covid 19 pneumonia Mediastinal and bilateral pneumothorax Acute hypoxic and hypercapnic respiratory failure Status post respiratory arrest patient intubated on full ventilator support lung protective strategy MSSA pneumonia Bilateral DVT Free air in the abdomen due to mediastinal emphysema and pneumothorax Acute hypoxic respiratory failure Covid 19 pneumonia and ARDS related to that Type 2 diabetes mellitus Hypertension hypertensive cardiovascular disease Dehydration hypovolemia and hyponatremia Depression Overall prognosis is very poor with poor likelihood of recovery Plan: As per family wishes we will initiate comfort care measures when they are ready continue supportive care in the meantime, family is planning to be together on MondaySeptember 11 Time with Patient: Greater than 30
[2020-09-10 11:08] VITALS: BMI 34.1
--- NOTE | 2020-09-10 13:06 | P.PN ---
Subjective Covid 19 infection/pneumonia 53-year-old male is admitted for Covid19 pneumonitis, sepsis. Patient went into hypoxemia last night ended up on 3 L of oxygen.overall feeling little bit better. 08/17/2020 Patient's is pretty status is worse and patient is not doing well in spite of high flow nasal cannula oxygen along with 100% many mask. Patient is being started on Remdesivir. Patient is still complaining of shortness of breath Constitutional: Denied any fatigue denied any fever. Cardio vascular: denied any chest pain, palpitations Gastrointestinal denied any nausea vomiting Pulmonary: As mentioned above Neurologic denied any new focal deficits All inpatient medications were reviewed and appropriate changes in these medications as dictated in the interval history and assessment and plan. 08/18/2020 Patient is seen and evaluated in follow-up and continues to be maintained on high flow oxygen via nasal cannula. Infectious disease is following. Patient continues to have shortness of breath especially with exertion. Discussed with the patient about increasing activity and getting up to the commode and chair. Patient states he feels slightly better today although continues to be extremely dyspneic. Review of systems: Constitutional: No reports of fatigue, fever, or chills Cardiovascular: No reports of chest pain or palpitations Respiratory: Reports shortness of breath with occasional cough GI: No reports of nausea, vomiting, or diarrhea : No reports of dysuria or retention Neurovascular: No reports of weakness or numbness All medications have been reviewed 08/19/2020 Patient is seen and evaluated in follow-up with no real improvement of respiratory status. Patient continues to sat in the low 80s and drops quickly without oxygen. He she is currently maintained on 15 L high flow oxygen along with a nonrebreather over that and was able to obtain 90% oxygen saturation. Patient is currently sitting up at the bedside asking when he can go home. Discussed with the patient at length about respiratory status and his inability to come off oxygen at this time. White blood count elevated at 17.9 from yest erday. BMP within normal limits although blood glucose levels continue to be elevated. Patient is maintained on sliding scale along with long-acting and oral antidiabetic medications. Will continue to monitor as the dexamethasone may be a component of elevated glucose levels. Discussed with the patient about incentive spirometer and instructed to use at least 10 times every hour while awake. Patient currently denies any chest pain or palpitations. Patient is afebrile. No reports of nausea or vomiting patient states he does not have much of an appetite although is tolerating diet. 08/20/2020 Patient is seen in follow-up and continues to be on a nonrebreather and 15 L high flow oxygen and was found to be extremely anxious and hypoxic with saturations in the 70s earlier this morning Repeat chest x-ray done today shows right side pneumothorax along with pneumo mediastinum, subcutaneous emphysema. Pulmonary Dr. López is following and will be placing a chest tube this afternoon. Lovenox dose will be adjusted once chest tube is placed. White blood count elevated at 20.7. D-dimer was found to be 13.05. Review of systems: Constitutional: Anxious, no reports of fever, or chills Cardiovascular: No reports of chest pain or palpitations Respiratory: reports worsening shortness of breath and difficulty breathing GI: No reports of nausea, vomiting, or diarrhea : No reports of dysuria or retention Neurovascular: No reports of weakness or numbness All medications have been reviewed 08/21/2020 Patient is seen and evaluated and follow-up currently remains in the ICU as patient underwent right chest tube placement with Dr. López yesterday due to right pneumothorax with pneumomediastinum and subcutaneous emphysema. Patient is currently sitting up in the chair and on a nonrebreather and high flow oxygen at flow rate of 60% with an FiO2 of 85%. Patient is currently at 89% oxygen saturation. Patient is also receiving a unit of fresh frozen plasma and is maintained on Lovenox. Blood sugars continue to be elevated and will continue to monitor with long-acting along with sliding scale. White Blood count 20.2. Chest x-ray this morning shows a stable right pneumothorax with right-sided chest tube noted and stable subcutaneous emphysema. Patient instructed to continue with incentive spirometer and semi-prone position with the right side up. Patient is somewhat anxious and agitated with remaining hospitalized. No reports of chest pain or palpitations. Denies any nausea or vomiting and is tolerating diet. Patient is currently afebrile. 08/22/2020 Patient has 2 chest tubes on the right side. Patient remains on airvo, there was a persistent leak in the previous chest tube. 08/23/2020 Patient the has bilateral pneumothorax right side has 2 chest tubes attached to wall suction and left-sided pneumothorax is 10-15% which is being monitored, cardiothoracic surgery evaluated the patient. Patient is presently on Bipap. Review of systems: Unable to obtain due to his clinical condition did All inpatient medications were reviewed and appropriate changes in these medications as dictated in the interval history and assessment and plan. 08/24/2020 Patient currently remains on a BiPAP and has 2 right-sided chest tubes and awaiting for possible pigtail once more stabilized. Patient is currently unable to tolerate travel to [place] for interventional radiology to place the catheter. Chest x-ray today shows a moderate size recurrence of the right pneumothorax along with a small left apical pneumo that appears to be stable along with diffuse patchy infiltrates within bilateral lung ulloa. Pulmonary following closely. Discussed with pulmonary about the possibility of a transfer to a tertiary care center if patient's clinical status continues to deteriorate and unable to obtain the left side pigtail catheter. Remains in the ICU with close monitoring. Patient continues on IV antibiotics in the form of cefepime and vancomycin along with zinc, Lovenox, and dexamethasone. Review of systems: Constitutional: Reports fatigue, anxious, no reports of fever, or chills Cardiovascular: No reports of chest pain or palpitations Respiratory: Reports continued shortness of breath and cough GI: No reports of nausea, vomiting, or diarrhea : No reports of dysuria or retention Neurovascular: Reports weakness, no reports of numbness All medications have been reviewed 08/25/2020 Patient is seen and evaluated in follow-up and continues to be closely monitored in the ICU. Patient had a brief period Of respiratory arrest with attempts to pull out chest tubes after removing the BiPAP and was ultimately intubated. Patient was placed on sedation and appears much more calm at this time. Patient currently awaiting to receive a left side chest tube for the small pneumothorax with pulmonary. Patient continues to have 2 right-sided chest tubes at this time. White blood count elevated Review of systems: Unable to assess as patient is currently intubated and sedated. 08/26/20 Patient seen in follow up current remains in the ICU being closely monitored. Repeat chest xray today shows continued diffuse bilateral air space infiltrates with no pneumothoraces visible. Patient continues to have 3 chest tubes and intubated. Prognosis is poor. Code status discussed with the Bette Flores today and she would like him comfortable and made a no code. Consult placed to case management for hospice consult as she would like information about hospice and comfort measures. 08/27/2020 Patient is currently on back on ventilator. Sedated and paralyzed. Patient does have chest tubes in place. Chest x-ray showed stable portable chest. Bilateral chest tubes are redemonstrated. Bilateral less than 10% pneumothorax seen bilaterally. Laboratory data showed WBC 28.6, hemoglobin 13.0, platelets 157 Lymphocyte count 0.2 ABG showed pH of 7.19, PCO2 61 and PO2 6390% FiO2 Sodium 136, potassium 5.7 and chloride 108, BUN 64 and creatinine 3.17 Significantly elevated inflammatory markers. Patient is being continued on antibiotics in the form of cefepime and vancomycin. Currently on dexamethasone and completed remdesivir course. Continued on insulin dosing. 09/05/2020 Patient is currently in the MICU sedated and intubated. Patient was having bleeding through the endotracheal tube and OG tube. Anticoagulation is on hold at this time. Patient is currently 80% FiO2 and assist control. Chest x-ray showed no significant pneumothorax seen. Minimal subcutaneous emphysema and mediastinal emphysema leaving the left chest tube. Right chest tube without leaking air. Patient is tolerating tube feeding. Currently on antibiotics in the form of IV cefepime for MSSA pneumonia. Patient underwent hemodialysis today. 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 Currently on FiO2 60%. Intubated and sedated. Patient underwent hemodialysis yesterday with 2.5 L ultrafiltration. Tolerating tube feeding. Continued on Levophed. Anticoagulation is on hold due to bleeding from the ET tube and Hallman catheter. Hematology has seen the patient and bleeding dialysis felt to be mostly due to enhanced anticoagulant effect of Lovenox and also platelet dysfunction due to renal failure on hemodialysis. Antifactor 10-year has been ordered and is currently pending.. Chest x-ray showed diffuse interstitial infiltrates remain. Airspace disease in the right lower lobe show some improvement. Bilateral chest tubes. Slight improvement in the patient's subcutaneous emphysema as well. Laboratory data showed WBC 20.1 hemoglobin 8.6 Sodium 134, potassium 4.5, BUN 70 and creatinine 4.93 and inflammatory markers are elevated. Patient is being continued on antibiotics in the form of cefepime and Flagyl. Sputum cultures grew Pseudomonas and Kristen albicans. Repeat blood cultures have been negative so far. 09/07/2020 Patient is undergoing hemodialysis today. Patient agrees to have right-sided to 2 chest tubes and left-sided 1 chest tube. Patient remains on propofol drip and Nimbex. Patient the is on insulin drip for Levothroid drip sputum cultures are positive for MSSA and pseudomonas, Kristen albicans. Infectious disease is following the patient as well. Patient is presently on cefepime and metronidazole. 09/08/2020 Patient can use to have some bleeding in the oral cavity. Patient's anticoagulation was discontinued and patient was on Lovenox and patient the head renal dysfunction because of which patient ended up bleeding quite a bit. Patient remains on same antibiotics all 3 chest tubes remain in place. Patient does have elevated blood sugars patient is receiving Nepro via via NG tube. Patient is also on systemic steroids increasing his blood sugars. Patient will be started on Levemir will try to wean him off IV insulin. Patient will also be continued on sliding scale. While titrating his insulin patient blood sugars are expected to stay high. is probably more appropriate for placement to select specialty, if not comfort care. Patient didn't undergo hemodialysis today yet. 09/09/2020 Patient is undergoing dialysis today. Patient respiratory status bleed did improve and patient is on FiO2 50% on minimal pressor support. Patient still has 3 chest tubes. Patient probably will need a tracheostomy and PEG tube pl acement and a transfer to although hemoglobin remained stable for last couple days because of which hematology evaluated the patient the recommending to resume on anti-correlation as soon as possible and they believe bleeding is secondary to platelet dysfunction for which they're recommending DDAVP patient is definitely high risk for PE/DVT. My plan is to bed and give DDAVP today I am hoping that his bleeding diathesis will improve and will start him on heparin at that time. We'll plan on starting him on IV heparin if her clinical bleeding is bit better. Patient's hemoglobin also remained stable for last couple days. 09/10/2020 . Patient remains on the same and later to support and the vocational rehabilitation teacher discussed the overall goals of care with his who will be available tomorrow to visit him in the hospital until after that patient most probably will be initiated on hospice. Patient is off Levophed drip. Can use to be on ventilator support with 50% FiO2 and rest of the vent settings please refer to human resources hr generalist dictation Current medications reviewed. Review of systems: Unable to obtain as patient is intubated and sedated. Objective - Vital Signs Vital signs: Vital Signs Temp 98.7 F 09/10/20 12:00 Pulse 91 09/10/20 12:00 Resp 22 09/10/20 12:00 BP 165/77 09/10/20 12:00 Pulse Ox 94 L 09/10/20 12:00 Intake & Output 09/09/20 09/10/20 09/10/20 18:59 06:59 18:59 Intake Total 397.655 0356.405 415 Output Total 3015 30 0 Balance -2404.328 1142.405 415 Weight 123.8 kg 123.8 kg Intake: IV 180 326 115 Cefepime 1 gm In Sodium 50 50 Chloride 0.9% 50 ml @ 12. 5 mls/hr IVPB Q12HR [facility] Rx#:[id number] Normal Saline PRessure 36 15 bag sodium chloride @ 10ml hr 130 240 100 Intake, IV Titration 360.672 382.405 100 Amount Desmopressin Acetate 38 50 mcg In Sodium Chloride 0. 9% 50 ml @ 200 mls/hr IV ONCE ONE Rx#:[id number] Norepinephrine 32 mg In 89.439 11.661 Sodium Chloride 0.9% 218 ml @ 0.05 MCG/KG/MIN 2. 866 mls/hr IV .Q24H [facility] Rx#:[id number] Norepinephrine 4 mg In 67.983 Sodium Chloride 0.9% 250 ml @ 0.05 MCG/KG/MIN 23. 908 mls/hr IV .[id number] [facility] Rx#:[id number] propofoL 1,000 mg In 221.233 302.761 100 Empty Bag 1 bag @ Titrate IV .Q0M [facility] Rx#: [id number] Tube Feeding 40 374 170 Other 30 90 30 Output: Urine 15 30 0 Hemodialysis 3000 Other: Voiding Method Indwelling Catheter Indwelling Catheter ABP, PAP, CO, CI - Last Documented Arterial Blood Pressure 158/51 - Exam GENERAL: The patient is intubated and sedated and appears to be in no acute distress. HEENT: Pupils are round and equally reacting to light. EOMI. No scleral icterus. No conjunctival pallor. Normocephalic, atraumatic. No pharyngeal erythema. No thyromegaly. ET tube noted CARDIOVASCULAR: S1 and S2 present. No murmurs, rubs, or gallops. PULMONARY: Bilateral scattered rhonchi, no wheezing noted diminished air entry bilaterally worse on the right, 2 chest tubes noted on the right side and one on the left ABDOMEN: Soft, nontender, nondistended, normoactive bowel sounds. No palpable organomegaly. MUSCULOSKELETAL: No joint swelling or deformity. EXTREMITIES: No cyanosis, clubbing, or pedal edema. NEUROLOGICAL: Unable to fully assess as patient is intubated and sedated SKIN: No rashes. Note: [facility], some of the history and physical exam findings are indirect and obtained from nursing staff, and other physician examinations to avoid unnecessary contact with the patient. - Labs CBC & Chem 7: 09/10/20 03:40 09/10/20 09:27 Labs: Abnormal Lab Results - Last 24 Hours (Table) 09/09/20 09/09/20 09/09/20 Range/Units 04:45 17:37 19:56 WBC (3.8-10.6) k/uL RBC (4.30-5.90) m/uL Hgb (13.0-17.5) gm/dL Hct (39.0-53.0) % RDW (11.5-15.5) % Neutrophils # (1.3-7.7) k/uL Lymphocytes # (1.0-4.8) k/uL Fibrinogen (200-500) mg/dL D-Dimer (<0.60) mg/L FEU ABG pH (7.35-7.45) ABG pO2 (83-108) mmHg Sodium (137-145) mmol/L BUN (9-20) mg/dL Creatinine (0.66-1.25) mg/dL Glucose (74-99) mg/dL POC Glucose (mg/dL) 183 H 198 H (75-99) mg/dL Hemoglobin A1c 8.8 H (4.0-6.0) % Calcium (8.4-10.2) mg/dL Alkaline Phosphatase (38-126) U/L Total Protein (6.3-8.2) g/dL Albumin (3.5-5.0) g/dL 09/09/20 09/10/20 09/10/20 Range/Units 23:09 03:40 03:40 WBC 13.5 H (3.8-10.6) k/uL RBC 2.61 L (4.30-5.90) m/uL Hgb 7.3 L (13.0-17.5) gm/dL Hct 22.5 L (39.0-53.0) % RDW 16.0 H (11.5-15.5) % Neutrophils # 12.2 H (1.3-7.7) k/uL Lymphocytes # 0.4 L (1.0-4.8) k/uL Fibrinogen 560 H (200-500) mg/dL D-Dimer 4.52 H (<0.60) mg/L FEU ABG pH (7.35-7.45) ABG pO2 (83-108) mmHg Sodium (137-145) mmol/L BUN (9-20) mg/dL Creatinine (0.66-1.25) mg/dL Glucose (74-99) mg/dL POC Glucose (mg/dL) 186 H (75-99) mg/dL Hemoglobin A1c (4.0-6.0) % Calcium (8.4-10.2) mg/dL Alkaline Phosphatase (38-126) U/L Total Protein (6.3-8.2) g/dL Albumin (3.5-5.0) g/dL 09/10/20 09/10/20 09/10/20 Range/Units 03:40 05:36 06:03 WBC (3.8-10.6) k/uL RBC (4.30-5.90) m/uL Hgb (13.0-17.5) gm/dL Hct (39.0-53.0) % RDW (11.5-15.5) % Neutrophils # (1.3-7.7) k/uL Lymphocytes # (1.0-4.8) k/uL Fibrinogen (200-500) mg/dL D-Dimer (<0.60) mg/L FEU ABG pH 7.30 L (7.35-7.45) ABG pO2 79 L (83-108) mmHg Sodium 132 L (137-145) mmol/L BUN 59 H (9-20) mg/dL Creatinine 4.54 H (0.66-1.25) mg/dL Glucose 153 H (74-99) mg/dL POC Glucose (mg/dL) 174 H (75-99) mg/dL Hemoglobin A1c (4.0-6.0) % Calcium 7.0 L (8.4-10.2) mg/dL Alkaline Phosphatase 137 H (38-126) U/L Total Protein 4.7 L (6.3-8.2) g/dL Albumin 2.1 L (3.5-5.0) g/dL Assessment and Plan Plan: -Covid 19 infection/pneumonia , patient presently has Pseudomonas pneumonia patient is presently on cefepime and Flagyl. Patient appears to have ventilator associated pneumonia with Pseudomonas. -Acute hypoxic, hypercapnic respiratory failure requiring mechanical ventilation, patient is on muscle relaxants as well. -Septic shock improved presently not on any pressors. -Bleeding diathesis with the hematuria and blood in the oral cavity and secondary to Lovenox. -confirmed pneumoperitoneum as noted on CT -bilateral lower extremity deep vein thromboses -acute renal failure likely acute tubular necrosis, likely from vancomycin toxicity currently requiring hemodialysis -Acute respiratory arrest with hypoxia -Right side pneumothorax , small stable left-sided pneumothorax. -Type 2 diabetes mellitus, uncontrolled and elevated blood sugars and patient patient's IV insulin will be weaned off and patient was started on long-acting Lantus as well as sliding scale insulin patient is receiving NG tube feedings and remains on Decadron. -Hyponatremia: Secondary to renal dysfunction -Hypertension: -DVT prophylaxis Lovenox is being held because of bleeding -GI prophylaxis Plan is for comfort care and hospice tomorrow
[2020-09-10 13:15] LABS: Glucose,Whole Blood 224 mg/dL (75-99)
--- NOTE | 2020-09-10 15:00 | P.PN ---
Subjective Progress Note Date: 09/10/20 CHIEF COMPLAINT: Free air noted on CT of chest HISTORY OF PRESENT ILLNESS: Patient seen and examined with Dr. gray. Patient is being followed for the pneumoperitoneum which is due to patient's pneumoth orax. Patient remains intubated and sedated in ICU. He has been getting daily hemodialysis. He is currently off of pressors. There is discussion about placing patient on comfort care. Afebrile WBC 13.5 hemoglobin 7.3 PHYSICAL EXAM: VITAL SIGNS: Reviewed. GENERAL: Well-developed in no acute distress. HEENT: No sclera icterus. Extraocular movements grossly intact. Moist buccal mucosa. Head is atraumatic, normocephalic. ABDOMEN: Soft. Nondistended. Nontender. NEUROLOGIC: Intubated and sedated ASSESSMENT: 1. Pneumoperitoneum likely due to pneumothorax 2. Covid 19 infection 3. Bilateral pneumothoraces status post bilateral chest tube placement 4. Acute kidney injury secondary to ATN and vancomycin toxicity. Patient has been started on hemodialysis during this admission 5. Acute hypoxic and hypercapnic respiratory failure 6. Bilateral lower extremity DVT 7. Multiorgan failure PLAN: -Continue supportive care -No surgical intervention planned -Surgery on standby Physician Transportation Maintenance Supervisor note has been reviewed by physician. Signing provider agrees with the documented findings, assessment, and plan of care. Objective - Vital Signs Vital signs: Vital Signs Temp 98.7 F 09/10/20 12:00 Pulse 96 09/10/20 14:00 Resp 34 H 09/10/20 14:00 BP 165/77 09/10/20 12:00 Pulse Ox 90 L 09/10/20 14:00 Intake & Output 09/09/20 09/10/20 09/10/20 18:59 06:59 18:59 Intake Total 230.269 9043.405 716 Output Total 3015 30 50 Balance -2404.328 1142.405 666 Weight 123.8 kg 123.8 kg Intake: IV 180 326 184 Cefepime 1 gm In Sodium 50 50 Chloride 0.9% 50 ml @ 12. 5 mls/hr IVPB Q12HR [facility] Rx#:[id number] Normal Saline PRessure 36 24 bag sodium chloride @ 10ml hr 130 240 160 Intake, IV Titration 360.672 382.405 200 Amount Desmopressin Acetate 38 50 mcg In Sodium Chloride 0. 9% 50 ml @ 200 mls/hr IV ONCE ONE Rx#:[id number] Norepinephrine 32 mg In 89.439 11.661 Sodium Chloride 0.9% 218 ml @ 0.05 MCG/KG/MIN 2. 866 mls/hr IV .Q24H [facility] Rx#:[id number] Norepinephrine 4 mg In 67.983 Sodium Chloride 0.9% 250 ml @ 0.05 MCG/KG/MIN 23. 908 mls/hr IV .[id number] [facility] Rx#:[id number] propofoL 1,000 mg In 221.233 302.761 200 Empty Bag 1 bag @ Titrate IV .Q0M [facility] Rx#: [id number] Tube Feeding 40 374 272 Other 30 90 60 Output: Chest Tube Drainage 50 Chest Tube Right 0 Chest Tube Right Upper 0 Left Upper Anterior Chest 50 Urine 15 30 0 Hemodialysis 3000 Other: Voiding Method Indwelling Catheter Indwelling Catheter Indwelling Catheter ABP, PAP, CO, CI - Last Documented Arterial Blood Pressure 144/50 - Labs CBC & Chem 7: 09/10/20 03:40 09/10/20 09:27 Labs: Abnormal Lab Results - Last 24 Hours (Table) 09/09/20 09/09/20 09/09/20 Range/Units 04:45 17:37 19:56 WBC (3.8-10.6) k/uL RBC (4.30-5.90) m/uL Hgb (13.0-17.5) gm/dL Hct (39.0-53.0) % RDW (11.5-15.5) % Neutrophils # (1.3-7.7) k/uL Lymphocytes # (1.0-4.8) k/uL Fibrinogen (200-500) mg/dL D-Dimer (<0.60) mg/L FEU ABG pH (7.35-7.45) ABG pO2 (83-108) mmHg Sodium (137-145) mmol/L BUN (9-20) mg/dL Creatinine (0.66-1.25) mg/dL Glucose (74-99) mg/dL POC Glucose (mg/dL) 183 H 198 H (75-99) mg/dL Hemoglobin A1c 8.8 H (4.0-6.0) % Calcium (8.4-10.2) mg/dL Alkaline Phosphatase (38-126) U/L Total Protein (6.3-8.2) g/dL Albumin (3.5-5.0) g/dL 09/09/20 09/10/20 09/10/20 Range/Units 23:09 03:40 03:40 WBC 13.5 H (3.8-10.6) k/uL RBC 2.61 L (4.30-5.90) m/uL Hgb 7.3 L (13.0-17.5) gm/dL Hct 22.5 L (39.0-53.0) % RDW 16.0 H (11.5-15.5) % Neutrophils # 12.2 H (1.3-7.7) k/uL Lymphocytes # 0.4 L (1.0-4.8) k/uL Fibrinogen 560 H (200-500) mg/dL D-Dimer 4.52 H (<0.60) mg/L FEU ABG pH (7.35-7.45) ABG pO2 (83-108) mmHg Sodium (137-145) mmol/L BUN (9-20) mg/dL Creatinine (0.66-1.25) mg/dL Glucose (74-99) mg/dL POC Glucose (mg/dL) 186 H (75-99) mg/dL Hemoglobin A1c (4.0-6.0) % Calcium (8.4-10.2) mg/dL Alkaline Phosphatase (38-126) U/L Total Protein (6.3-8.2) g/dL Albumin (3.5-5.0) g/dL 09/10/20 09/10/20 09/10/20 Range/Units 03:40 05:36 06:03 WBC (3.8-10.6) k/uL RBC (4.30-5.90) m/uL Hgb (13.0-17.5) gm/dL Hct (39.0-53.0) % RDW (11.5-15.5) % Neutrophils # (1.3-7.7) k/uL Lymphocytes # (1.0-4.8) k/uL Fibrinogen (200-500) mg/dL D-Dimer (<0.60) mg/L FEU ABG pH 7.30 L (7.35-7.45) ABG pO2 79 L (83-108) mmHg Sodium 132 L (137-145) mmol/L BUN 59 H (9-20) mg/dL Creatinine 4.54 H (0.66-1.25) mg/dL Glucose 153 H (74-99) mg/dL POC Glucose (mg/dL) 174 H (75-99) mg/dL Hemoglobin A1c (4.0-6.0) % Calcium 7.0 L (8.4-10.2) mg/dL Alkaline Phosphatase 137 H (38-126) U/L Total Protein 4.7 L (6.3-8.2) g/dL Albumin 2.1 L (3.5-5.0) g/dL 09/10/20 Range/Units 13:14 WBC (3.8-10.6) k/uL RBC (4.30-5.90) m/uL Hgb (13.0-17.5) gm/dL Hct (39.0-53.0) % RDW (11.5-15.5) % Neutrophils # (1.3-7.7) k/uL Lymphocytes # (1.0-4.8) k/uL Fibrinogen (200-500) mg/dL D-Dimer (<0.60) mg/L FEU ABG pH (7.35-7.45) ABG pO2 (83-108) mmHg Sodium (137-145) mmol/L BUN (9-20) mg/dL Creatinine (0.66-1.25) mg/dL Glucose (74-99) mg/dL POC Glucose (mg/dL) 224 H (75-99) mg/dL Hemoglobin A1c (4.0-6.0) % Calcium (8.4-10.2) mg/dL Alkaline Phosphatase (38-126) U/L Total Protein (6.3-8.2) g/dL Albumin (3.5-5.0) g/dL
--- NOTE | 2020-09-10 15:29 | PN ---
PROGRESS NOTE Patient is seen for followup for acute kidney injury. Currently, patient remains on the vent. There are plans for terminal wean tomorrow. He continues to have no significant urine output. Case is discussed with nursing staff. The patient is stable on the vent. FiO2 is at 50%. He is tolerating tube feeds. He continues to have significant edema. Currently, patient is sedated. This morning blood pressure was 137/46, heart rate of 87 per minute, patient is afebrile. On exam, he has significant edema, patient is sedated, he is on the vent. Detailed exam is not performed as patient is COVID pneumonia and sepsis. LABS: Show sodium of 132, potassium 3.6, chloride 102, BUN 59, creatinine 4.5, hemoglobin 7.3 g/dL. ASSESSMENT: 1. Acute kidney injury ATN currently oliguric, secondary to sepsis, hypotension and underlying COVID infection. 2. Volume overload. The patient is being dialyzed on a daily basis. However, he remains significantly volume overloaded. 3. Acute hypoxic respiratory failure secondary to COVID pneumonia and sepsis. PLAN: We will dialyze the patient again today for about 2 hours with goal UF of about 2-3 L as tolerated. I will hold off on dialysis tomorrow as there are plans for terminal wean. MMODL / IJN: [id number] /
[2020-09-10 17:23] LABS: Glucose,Whole Blood 230 mg/dL (75-99)
[2020-09-10] MEDS: LORazepam 2 MG/ML INJ IV PRN ×2 (17:33→21:39)
[2020-09-10] MEDS: ASPIRIN 81 MG PO SCH (19:51)
[2020-09-10] MEDS: INSULIN DETEMIR (LEVEMIR) 100 UNIT/ML SYR SQ SCH (20:01)
[2020-09-10 20:11] LABS: Glucose,Whole Blood 194 mg/dL (75-99)
--- NOTE | 2020-09-10 21:51 | PN ---
PROGRESS NOTE DATE OF SERVICE: 09/10/2020 REASON FOR FOLLOWUP: Pneumonia. INTERVAL HISTORY: The patient is currently afebrile. The patient is hemodynamically stable and off pressor support. FiO2 is currently stable at 50% with no purulent secretions through ET or any worsening diarrhea reported by the nursing staff. PHYSICAL EXAMINATION: Blood pressure 140/60 with a pulse of 88, temperature 98. He is 97% on 50% FiO2. General description is a middle-aged male intubated on the vent. RESPIRATORY SYSTEM: Unlabored breathing with decreased breath sounds at the base. No wheeze. HEART: S1, S2. Regular rate and rhythm. ABDOMEN: Soft. Mildly distended. No guarding or rigidity. EXTREMITIES: Two plus edema of feet. LABS: Hemoglobin 7.3, white count 13.5, BUN of 59, creatinine 4.54. DIAGNOSTIC IMPRESSION AND PLAN: Patient with acute respiratory failure which is multifactorial in this patient who did have COVID-19 pneumonia, for which he has completed his treatment. Repeat sputum with MSSA and pseudomonas, covered with cefepime; to continue along with respiratory support. MMODL / IJN: [id number] /
[2020-09-11] LABS: Glucose,Whole Blood 174 mg/dL (75-99)
[2020-09-11] MEDS: NOREPINEPHRINE 4 MG in SODIUM CHLORIDE 0.9% 250 ML IV SCH (00:02)
[2020-09-11] MEDS: INSULIN ASPART (NovoLOG) 100 UNIT/ML VIAL SQ SCH ×2 (00:02→06:03)
[2020-09-11] MEDS: metroNIDAZOLE 500 MG TAB PO SCH ×2 (00:03→08:38)
[2020-09-11 04:17] LABS: Basophils % (A) 0 %; Eosinophils # (A) 0.6 k/uL (0-0.7); Eosinophils % (A) 5 %; HGB 7.1 gm/dL (13.0-17.5); Hypochromasia Slight; Lymphocytes # (A) 0.3 k/uL (1.0-4.8); Lymphocytes % (A) 3 %; MCH 29.2 pg (25.0-35.0); MCHC 33.5 g/dL (31.0-37.0); Mean Platelet Volume 8.7; Monocytes # (A) 0.4 k/uL (0-1.0); Monocytes % (A) 3 %; Neutrophils # (A) 10.3 k/uL (1.3-7.7); Neutrophils % (A) 88 %; Platelet Count 162 k/uL (150-450); Poikilocytosis Slight; RBC 2.42 m/uL (4.30-5.90); RDW 15.9 % (11.5-15.5); WBC 11.7 k/uL (3.8-10.6)
[2020-09-11 04:47] LABS: Potassium 3.6 mmol/L (3.5-5.1); Total Bilirubin 0.4 mg/dL (0.2-1.3); Total Protein 4.5 g/dL (6.3-8.2)
[2020-09-11] MEDS ORDERED: POTASSIUM BICARBONATE/CIT AC 20 MEQ TABLET.EFF PO ONE (05:30)
[2020-09-11 05:33] LABS: Glucose,Whole Blood 178 mg/dL (75-99)
[2020-09-11] MEDS: CALCIUM ACETATE 667 MG TAB PO SCH (06:03)
[2020-09-11 06:09] LABS: ABG Base Excess -6.6 mmol/L; ABG HCO3 21 mmol/L (21-25); ABG Oxygen Saturation 96.6 % (94-97); ABG PCO2 46 mmHg (35-45); ABG PH 7.26 (7.35-7.45); ABG PO2 87 mmHg (83-108); ABG TCO2 22 mmol/L (19-24); Allen Test Performed? Yes
--- NOTE | 2020-09-11 07:09 | XR ---
EXAMINATION TYPE: XR chest 1V portable DATE OF EXAM: 09/11/2020 COMPARISON: 09/10/2020 INDICATION: Intubated difficulty breathing TECHNIQUE: Single frontal view of the chest is obtained. FINDINGS: The heart size is normal. The pulmonary vasculature is normal. Diffuse increased lung markings are present bilaterally. Bilateral chest tubes are present. Small lef t lateral pneumothorax is present. Small right pneumothorax is evident. Subcutaneous emphysema is pre sent. Endotracheal tube tip is above the mauro. Nasogastric tube transverses the thorax. 2 right-sided and one left-sided chest tube are present IMPRESSION: 1. Small lateral pneumothoraces present bilaterally. 2. Chest tube positioning on the left is been adjusted. Chest tube positioning on the right appears s table for the upper lung field chest tube. The lower lung field chest tube may be advanced slightly o robbie the interval. 3. Diffuse infiltrates, stable
[2020-09-11 08:37] VITALS: TEMP 97.9
[2020-09-11] MEDS: ASCORBIC ACID 500 MG TAB PO SCH (08:38)
[2020-09-11] MEDS: FAMOTIDINE 20 MG/2 ML VIAL IV SCH (08:38)
[2020-09-11] MEDS: CHOLECALCIFEROL 1,000 UNIT TAB PO SCH (08:38)
[2020-09-11] MEDS: ZINC SULFATE 220 MG CAP PO SCH (08:38)
[2020-09-11] MEDS: LORazepam 2 MG/ML INJ IV PRN (08:41)
[2020-09-11] MEDS: DEXAMETHASONE SOD PHOSPHATE 10 MG/ML 1 ML VIAL IV SCH (08:45)
[2020-09-11] MEDS: SODIUM BICARBONATE TAB 650 MG TAB PO SCH (08:51)
[2020-09-11] MEDS: CEFEPIME 1 GM in SODIUM CHLORIDE 0.9% 50 ML IVPB SCH (08:51)
[2020-09-11] MEDS: CISATRACURIUM 200 MG in SODIUM CHLORIDE 0.9% 180 ML IV SCH (10:42)
[2020-09-11] MEDS ORDERED: ATROPINE OPHTH SOLN 1% 5ML BTL SUBLINGUAL PRN (12:34)
[2020-09-11] MEDS ORDERED: MORPHINE SULFATE 2 MG/ML SYRINGE IV PRN (12:34)
[2020-09-11] MEDS ORDERED: MORPHINE SULFATE (100 MG/2 ML) 100 MG in SODIUM CHLORIDE 0.9% 100 ML IV SCH (12:45)
[2020-09-11] MEDS ORDERED: SCOPOLAMINE 1.5MG/72HR PATCH TRANSDERM SCH (12:45)
--- NOTE | 2020-09-11 13:07 | P.PN ---
Subjective Progress Note Date: 09/11/20 CHIEF COMPLAINT: Free air noted on CT of chest HISTORY OF PRESENT ILLNESS: Patient seen and examined with Dr. Wagner. Patient is being followed for the pneumoperitoneum which is due to patient's pneumoth orax. Patient remains intubated and sedated in ICU. He has been getting daily hemodialysis. He is currently off of pressors. Awaiting family's decision regarding comfort care. Afebrile WBC 13.5 hemoglobin 7.1 creatinine 5.67 PHYSICAL EXAM: VITAL SIGNS: Reviewed. GENERAL: Well-developed in no acute distress. HEENT: No sclera icterus. Extraocular movements grossly intact. Moist buccal mucosa. Head is atraumatic, normocephalic. ABDOMEN: Soft. Nondistended. Nontender. NEUROLOGIC: Intubated and sedated ASSESSMENT: 1. Pneumoperitoneum likely due to pneumothorax 2. Covid 19 infection 3. Bilateral pneumothoraces status post bilateral chest tube placement 4. Acute kidney injury secondary to ATN and vancomycin toxicity. Patient has been started on hemodialysis during this admission 5. Acute hypoxic and hypercapnic respiratory failure 6. Bilateral lower extremity DVT 7. Multiorgan failure PLAN: -Continue supportive care -No surgical intervention planned Physician Customer Operations Intern note has been reviewed by physician. Signing provider agrees with the documented findings, assessment, and plan of care. Objective - Vital Signs Vital signs: Vital Signs Temp 97.9 F 09/11/20 08:00 Pulse 90 09/11/20 12:00 Resp 34 H 09/11/20 12:00 BP 143/50 09/10/20 17:29 Pulse Ox 93 L 09/11/20 12:00 Intake & Output 09/10/20 09/11/20 09/11/20 18:59 06:59 18:59 Intake Total 1131 1076.787 425 Output Total 0 35 0 Balance -919 1041.787 425 Weight 123.8 kg 124.3 kg Intake: IV 299 276 115 Normal Saline PRessure 39 36 15 bag sodium chloride @ 10ml hr 260 240 100 Intake, IV Titration 300 302.787 100 Amount propofoL 1,000 mg In 300 302.787 100 Empty Bag 1 bag @ Titrate IV .Q0M [facility] Rx#: [id number] Tube Feeding 442 408 180 Other 90 90 30 Output: Chest Tube Drainage 50 Chest Tube Right 0 Chest Tube Right Upper 0 Left Upper Anterior Chest 50 Urine 0 35 0 Hemodialysis 1999 Other: Voiding Method Indwelling Catheter Indwelling Catheter Indwelling Catheter ABP, PAP, CO, CI - Last Documented Arterial Blood Pressure 101/42 - Labs CBC & Chem 7: 09/11/20 04:00 09/11/20 04:00 Labs: Abnormal Lab Results - Last 24 Hours (Table) 09/10/20 09/10/20 09/10/20 Range/Units 13:14 17:20 20:09 WBC (3.8-10.6) k/uL RBC (4.30-5.90) m/uL Hgb (13.0-17.5) gm/dL Hct (39.0-53.0) % RDW (11.5-15.5) % Neutrophils # (1.3-7.7) k/uL Lymphocytes # (1.0-4.8) k/uL ABG pH (7.35-7.45) ABG pCO2 (35-45) mmHg Sodium (137-145) mmol/L Carbon Dioxide (22-30) mmol/L BUN (9-20) mg/dL Creatinine (0.66-1.25) mg/dL Glucose (74-99) mg/dL POC Glucose (mg/dL) 224 H 230 H 194 H (75-99) mg/dL Calcium (8.4-10.2) mg/dL Alkaline Phosphatase (38-126) U/L Total Protein (6.3-8.2) g/dL Albumin (3.5-5.0) g/dL 09/10/20 09/11/20 09/11/20 Range/Units 23:59 04:00 04:00 WBC 11.7 H (3.8-10.6) k/uL RBC 2.42 L (4.30-5.90) m/uL Hgb 7.1 L (13.0-17.5) gm/dL Hct 21.0 L (39.0-53.0) % RDW 15.9 H (11.5-15.5) % Neutrophils # 10.3 H (1.3-7.7) k/uL Lymphocytes # 0.3 L (1.0-4.8) k/uL ABG pH (7.35-7.45) ABG pCO2 (35-45) mmHg Sodium 132 L (137-145) mmol/L Carbon Dioxide 20 L (22-30) mmol/L BUN 67 H (9-20) mg/dL Creatinine 5.67 H (0.66-1.25) mg/dL Glucose 143 H (74-99) mg/dL POC Glucose (mg/dL) 174 H (75-99) mg/dL Calcium 7.0 L (8.4-10.2) mg/dL Alkaline Phosphatase 197 H (38-126) U/L Total Protein 4.5 L (6.3-8.2) g/dL Albumin 2.0 L (3.5-5.0) g/dL 09/11/20 09/11/20 Range/Units 05:32 06:02 WBC (3.8-10.6) k/uL RBC (4.30-5.90) m/uL Hgb (13.0-17.5) gm/dL Hct (39.0-53.0) % RDW (11.5-15.5) % Neutrophils # (1.3-7.7) k/uL Lymphocytes # (1.0-4.8) k/uL ABG pH 7.26 L (7.35-7.45) ABG pCO2 46 H (35-45) mmHg Sodium (137-145) mmol/L Carbon Dioxide (22-30) mmol/L BUN (9-20) mg/dL Creatinine (0.66-1.25) mg/dL Glucose (74-99) mg/dL POC Glucose (mg/dL) 178 H (75-99) mg/dL Calcium (8.4-10.2) mg/dL Alkaline Phosphatase (38-126) U/L Total Protein (6.3-8.2) g/dL Albumin (3.5-5.0) g/dL
[2020-09-11 14:34] VITALS: BP 142/70; PULSE 0; RESP 0
--- NOTE | 2020-09-11 15:40 | P.PN ---
Subjective Progress Note Date: 09/11/20 Principal diagnosis: Right spontaneous pneumothorax status post 2 chest tubes Pneumomediastinum Left spontaneous pneumothorax Acute hypoxic respiratory failure Covid 19 pneumonia Type 2 diabetes mellitus Hypertension hypertensive cardiovascular disease Dehydration hypovolemia and hyponatremia Depression 09/11/2020, patient seen eval examined during the rounds overall no significant change family is Considering comfort care measures, antoinette instructed to initiate that per protocol 09/10/2020, patient seen eval examined during the rounds labs reviewed medications reviewed care plan discussed with the staff at length, patient remains on the full ventilator support with a rate of 34 tidal volume is 550 PEEP is 12 oxygen is 50%, still have air leaks pretty much on the right side left-sided intermittent, patient is scheduled to get dialysis later on today, patient will have initiation of comfort care tomorrow, 2 days off of levo fed drip now, his the white cell count is down to 13,000 hemoglobin is stable 7.3, d-dimer is 4.5, arterial blood gas revealed pH of 7.3 pCO2 45 pO2 79, BUN/creatinine in spite of daily dialysis still high 59/4.54 09/09/2020, patient seen eval reexamined during the rounds labs reviewed medications reviewed care plan discussed with the staff at length, critical care time spent 35 minutes, patient just finished hemodialysis more than 2.5 L have been removed, patient remains off of Nimbex drip on propofol, currently patient is on controlled mechanical ventilation with a rate of 34 tidal volume of 550, PEEP is 12, oxygen is 50%, still have air leak on the right side board chest use present, air leak has improved very minimal occasional on the left side is noted, still have mediastinal emphysema on chest x-ray and bilateral int erstitial infiltrate, labs reviewed, is having issues with the oral bleeding is more like a posing some of the bleeding has been noted from the IV sites and PICC line sides, dark bloods have been through the NG tube, patient remains on now Decadron, broad-spectrum antibiotics for staph MSSA and Pseudomonas pneumonia, patient is due for tracheostomy and PEG tube but given the high amount of mediastinal air and air leaks less likely to retain the tracheostomy afraid that we'll developed complications, on the other hand I have discussed with Mrs., about trach and PEG she absolutely declined it, in fact she is leaning towords comfort measures, 09/08/2020, patient seen eval examined during the rounds labs reviewed medications reviewed care plan discussed, patient remains intubated sedated with propofol, chest tubes are they're not much change still have air leak is present, chest x-ray reviewed patient had a dialysis yesterday 2.5 L have been removed remains on vasopressors and full ventilator support, PEEP is 12 tidal volume is 500, with assist control mode, chest x-ray not much change, message left for the awaiting her response, FiO2 is 50% oxygen saturation is 91%, continue supportive care critical care time spent 35 minutes 09/07/2020, patient seen eval examined during the round FiO2 has been escalated to 60% patient does have occasional cough leak with intermittent drop in volumes, overall ventilator setting remains stable remains on assist control rate of 34 tidal volume 550, PEEP of 12 with an FiO2 of 60%, saturation remains 88-90%, patient likely will need the ET tube exchange, undergoing hemodialysis being planned for removal of 2.5 L, patient remains on the propofol drip and Nimbex has been discontinued, also on levo fed and insulin drip, hemodynamic s tatus stable with a small amount of levo fed, chest x-ray reviewed, ET tube and OG tube as well as multiple chest tube was stable, no significant pneumothorax seen, the subcu emphysema and mediastinal emphysema remains unchanged, patient remains on broad-spectrum antibiotics for MSSA and Pseudomonas pneumonia 09/06/2020, patient seen eval examined during the rounds he remains medically paralyzed and sedated with propofol drip and Nimbex drip, patient remains on full ventilator support however able to decrease oxygen to 50%, patient is on assist control rate of 34 PEEP of 12, oxygen 50%, tidal volume 550, he is due for dialysis tomorrow, patient is still have intermittent clots suctioned from the mouth, appears to be old, bilateral stable chest tube chest x-ray from this morning reviewed care leak is present on the right side left-sided no air leak is present, patient remains on IV antibiotics and Decadron also on insulin drip levo fed drip, labs from today reviewed WBC is 20,000, hemoglobin remained stable 8.6, arterial blood gas revealed pH of 7.24 pCO2 [place] pO2 66, sodium 134 potassium 4.5 BUN/creatinine slightly improved 70 and 4.93, his LDH remains over 1100, C-reactive protein 54.9, ferritin also remains over 1100, chest x-ray reviewed stable PICC line NG tube and ET tube, 2 chest tube on the right side remains stable as well as the left side, no obvious significant pneumothorax seen, subcu and mediastinal emphysema continued to improve, patient is only on aspirin will be resumed on heparin drip most likely tomorrow 09/05/2020, patient seen eval examined during the rounds labs reviewed medications reviewed care plan discussed, bleeding through the endotracheal tube OG tube and oral have significantly improve old blood has been seen patient has been evaluated by hematology recommended to stop anticoagulation factor X A has been sent which will take another 3 or 4 days, for anticoagulation consider heparin restarting up in about 1-2 days, hemodynamics remains marginal patient continued to have intermittent episodes of hypertension, they were noted more during dialysis, current dialysis going on appears to be uneventful, patient remains on 80% oxygen with assist control rate of 34, tidal volume of 5 5012 of PEEP, patient remains on propofol Nimbex and insulin drip, the 3 chest tubes are in chest x-ray reviewed no significant pneumothorax seen minimal subcutaneous emphysema and mediastinal emphysema leaving the left chest tube the right-sided chest tube are leaking air, patient remains on tube feeding, patient remains on IV cephapime for the MSSA pneumonia, new double-lumen PICC line has been inserted, patient also on levo fed to keep systolic blood pressure is stable range, white cell count is 20,000 hemoglobin slowly declining is 9 today, art erial blood gases reviewed pH is 725 with pCO2 48 pO2 120, sodium was 133 potassium is 4.3 BUN/creatinine 75 and 5.11, patient has a mixed respiratory and metabolic acidosis 09/04/2020, patient seen eval examined, labs reviewed medications reviewed care plan discussed with the staff and primary care service as well, patient has a significant drop in volumes on ventilator significant air leak has been noted, ET tube has been changed by anesthesia, volume 7 improved however some desaturation noted requiring increase in oxygen saturation, patient however hemodynamically marginal is now requiring levo fed drip, right-sided chest tube continued to air leak significantly, sided chest tube was stable, noted however basal hip is still in, 09/03/2020, patient seen eval reexamined during the rounds labs reviewed medications reviewed care plan discussed, patient has significant amount of bleeding through the mouth with clumps and clots bright red in addition has been bleeding from the NG tube and ET tube as well, heparin has been stopped, next dose of Lovenox will hold it, repeat CBC is pending hemodynamics are stable, patient is scheduled to get a PICC line, currently patient is on assist control rate of 34 PEEP of 12 tidal volume of 550, 70% oxygen, saturation are 90-92%, the still have significant air leak from the right-sided apical chest tube at the bottom left-sided no significant air leak has been present, patient is getting IV cephapirin for the MSSA in the sputum, IV Diflucan and Flagyl has been admitted for suspicion of bowel perforation however the free air in the abdomen is due to thoracic air mediastinal and pleural escaped into the abdominal cavity, patient has been tolerating tube feed well, he remains medically paralyzed with propofol and Nimbex, white cell count is 18,000 yesterday CBC 10.7 today's labs are not done, PTT was 157, arterial blood gas reviewed pH is 7.2 with pCO2 53 oxygen is 70, patient continued to get hemodialysis per nephrology, 09/02/2020, patient seen eval examined during the rounds labs reviewed medications reviewed, remains sedated on propofol as well as Nimbex, full ventilator support, patient is a 80% oxygen sats are 90%, rate is 34 PEEP is 12, the CAT scan of the lungs consistent with ARDS, patient is getting hemodialysis currently, duplex ultrasound was back positive for bilateral DVT Lovenox increased to 60 mg twice a day, patient continued to have intermittent leak from the right-sided upper chest tube no significant leak is present on bottom 1, no leak has been seen from the left side 1, and cell count remains elevated with stable hemoglobin arterial blood gas shows respiratory acidosis with CO2 55, BUN/creatinine is 107/4.8, prognosis is guarded with likelihood of recovery is poor continue supportive care 09/01/2020, patient seen eval examined care plan discussed with the staff at length, patient remains on 100% oxygen assist control rate of 34 tidal volume of the 500 PEEP of 12, patient had second cycle hemodialysis today 500 mL was removed yesterday 1.5 L was removed, patient was found to have free air in the abdomen by a chest CT, no hollow viscus perforation have been noted, here appears to be thoracic air escaping into the abdominal cavity, patient has minimal pneumothorax on the right side with a stable chest tube in the pleural space draining air right upper chest tube continued to drain area continuously however lower chest tube intermittently, patient has extensive pneumomediastinum by CAT scan, left-sided pneumothorax significantly improved minimal or no air leak has been present on the left chest tube, white cell count is up to 22,000, ABG slightly improved and better pH is 7.21, potassium is 5.5, BUN/creatinine was up to 133 and 6.5 postdialysis labs are pending, patient is resumed back on tube feed post second dialysis sats have improved to 96% will titrate oxygen down as tolerated to keep saturation over 92%, critical care time spent 40 minutes 08/31/2020, patient seen eval examined during the rounds labs reviewed medications reviewed care plan discussed with the staff at length, remains medically paralyzed with propofol and Nimbex drip, chest tubes is still significantly leaking on the right side lungs are well expanded though, minimum leak is present at the base, cardiothoracic surgery is have recommended to follow it up closely, no active intervention has been recommended, renal function continued to get worse, patient has been getting diuresis with loop diuretics, would recommend to discontinue it patient remains on bicarb drip, along with anticoagulation, when setting remains stable assist control rate of 24 deep of 12 tidal volume 500 with 100% oxygen, saturation is just a 88-90%, continue broad-spectrum antibiotics and supportive care long-term prognosis poor will defer decision about dialysis to the family and renal services 08/30/2020, patient seen eval examined during the rounds medically sedated and paralyzed of propofol and Nimbex, on full ventilator support with assist control rate of 24 EP is 1200% oxygen which has been reduced to 90% now, saturation 91- 92%, bilateral chest tubes are present minimal air leak on the left side, right-sided apical tube still having persistent nearly however distal intermittently, tolerating tube feed well, labs reviewed arterial blood gas reviewed as well along with radiographic findings patient BUN/creatinine continue to go up consistent with acute tubular necrosis likely related to covid 19 sepsis, arterial blood gases revealed pH is 7.18 pCO2 54 pO2 90, patient improved to 5.4, BUN/creatinine up to 132 and 5.86 08/29/2020, patient seen eval examined during the rounds labs reviewed medicati ons reviewed care plan discussed with the staff including RN and respiratory therapy at length, saturation remains borderline however they were 90% in the morning came down to 84% increasing PEEP causes rapid increase in peak air pressure and platue pressure up to 55 and 35, PEEP lowered to 12, patient remains on 100% oxygen with full assist control mode, arterial blood gases reviewed and significant metabolic acidosis appears to be related to acute renal failure, renal services have been consulted, patient appears to have nonoliguric acute renal failure likely acute tubular necrosis, patient remains gently hydrated to feed and given, remains afebrile, white cell count remains on higher side hemoglobin stable, arterial blood gases noted to be to be pH of 7.18 pCO2 53 pO2 70, 1 amp of bicarb along with bicarb drip have been initiated, potassium running on the higher side of 5.8, inflammatory parameters slightly down of thousand today LDH and C-reactive protein remains elevated, sputum for positive for a MSSA, vancomycin has been discontinued which may be contributing to acute kidney injury, patient remains on the propofol as well as Nimbex drip, patient has 2 chest tubes on the right side and one chest tube on the left side due to pneumomediastinum and bilateral pneumothorax they've been aching is minimal on left and right bottom chest tube significant on apical chest tube however 08/28/2020, patient seen eval examined during the rounds labs reviewed medications reviewed, currently patient is on ventilator support PEEP of 10, 90% oxygen, assist control rate of 30, care blood gases reviewed, chest x-ray reviewed, minimal bilateral apical pneumothorax is present, stable left-sided chest U no air leak is present, right-sided apical tube continued to bubble significant air leak, bottom minimal, patient is medically paralyzed with propofol and Nimbex, laboratory data reviewed discussed at length with the staff 08/27/2020, patient seen eval examined during the rounds sedated and medically paralyzed, right-sided chest tube is still significantly and leak upper tube is present no significantly is seen in the 1 and also left side, labs and arterial blood gases reviewed and ventilator adjusted, chest U was stable on chest x-ray, apical very small pneumothorax, 08/26/2020, patient seen eval examined during the rounds labs reviewed medications reviewed, chest tube continue to gently air, patient intubated, on full ventilator support noted evidence of hypercapnia with increase the ventilation C orders, chest x-ray reviewed trace pneumothorax on the apex cannot be excluded, basal bilateral dense infiltrate with mediastinal emphysema, no significant pneumothorax seen, labs reviewed, critical care time 35 minutes 08/25/2020, patient seen eval examined during the rounds labs reviewed medications reviewed care plan discussed with the staff, patient had a r espiratory arrest earlier this morning during which he pulled out his BiPAP machine oxygen saturation dropped down into 20s, he also tried to pull out his chest tube, during that process he was intubated, postintubation chest x-ray shows minimal pneumothorax on the right side left-sided pneumothorax or anterior posterior cannot be excluded, extensive pneumomediastinum is present, patient currently and placed on the propofol at 75 mics was very restless and agitated, tachypneic tachycardic and eventually medically paralyzed with Nimbex drip, respiratory status slightly more stable patient is more calm and now hemodynamics stable, has been getting IV fluids, will need a chest tube on the the left side to avoid tension pneumothorax, keep the 2 chest tube on the right side 1 direct towards the apex appears to be stable however one at the base of the lung is still in, dense bilateral infiltrate are present, white cell count is up to 34,000, arterial blood gas and chest x-ray reviewed consistent with respiratory and metabolic acidosis, with severe hypoxia requiring PEEP with high ventilatory rate 08/24/2020, patient seen eval examined during the rounds labs reviewed medications reviewed sitting upright on the bed, remains on BiPAP with 100% oxygen, saturation 95%, patient desaturated into goes on the right side down and intermittently during supine posture, however do better with left side up, and sitting up as well, chest x-ray from today reviewed pneumothorax recurred on the right side in spite of 2 chest tube aiming towards the apex and the base with significant air leak, small left apical pneumothorax however is stable, patient is awaiting evaluation from thoracic surgery for possible VATS or transfer to tertiary care center, left side and INR will put a small bore pigtail catheter at the apex later on this morning, patient remains afebrile slightly tachycardic tachypneic, inflammatory parameters still up, prognosis is guarded care plan discussed directly and indirectly with primary service, staff, cardiothoracic and IR 08/23/2020, patient seen eval reexamined during the rounds labs reviewed medications reviewed, oxygen saturation remained stable, however patient couldn't tolerate off of BiPAP, he remains on BiPAP. All, chest x-ray reviewed, patient hasn't to right-sided chest tube air leak is present from both, left- sided residual small pneumothorax present along with subcutaneous emphysema and mediastinal emphysema, interventional radiology could not do a chest tube on the left side, they are planning to do it tomorrow, white cell count decreased to 19,000, d-dimer is still elevated inflammatory parameters elevated consistent with cytokine nita 08/22/2020, patient seen eval reexamined significant desaturation was more noted, sats dropped down to 55-70% spontaneously comes right back up though currently on 93% BiPAP, Semiprone with the right side up patient cannot tolerate airvo, desaturated easily remains tachypneic tachycardic hemodynamic status however remains stable, chest x-ray findings reviewed in spite of right-sided chest tube and persistent air leak there is a persistent spontaneous pneumothorax fairly large on the right side and small apical left sided spontaneous pneumothorax noted with pneumomediastinum and bilateral dense infiltrate at the bases, thoracic surgery has been consulted, patient may need an another chest tube on the right side versus VATS and preferably and of the small chest U was on the left side, will defer to expertise of thoracic surgery, labs reviewed medications reviewed care plan discussed at length with the staff 08/21/2020, patient seen eval examined during the rounds sitting upright in chair breathing slightly better oxygen saturation is 87-88%, patient is on high flow oxygen along with the nonrebreather mass, tachypneic tachycardic blood pressure is slightly high, patient has a right-sided chest tube is still leaking air, chest x-ray reviewed bilateral infiltrate is present with residual pneumothorax and subcu emphysema, labs from today reviewed white cell count remains elevated 20,000, renal functions stable, will attempt semi-prone with right side up, we will obtain an transfuse convalescent plasma 08/20/2020, patient seen eval examined during the rounds a labs reviewed medications reviewed this morning patient had problems with agitated anxiety and a prehension, oxygen saturation dropped down into 70s, rapid response was called and stat chest x-ray revealed presence of pneumothorax which is significant on the right side as well they may be a small mediastinal emphysema on the left side as well, patient has been made semi-prone with that oxygen saturation 100% nonrebreather mask improved to 92% patient is more calm, he remains afebrile temperature is 98.3 respiratory rate and mid to high 20s, weight is oxygen saturation 94%, chest x-ray finding reviewed 08/19/2020, patient seen eval examined during the rounds labs reviewed medications reviewed care plan discussed, patient is sitting upright on the bed on 100% nonrebreather mask, saturation remains marginal about 88%, remains afebrile, slightly anxious, advised based he hasn't to be on prone position as much as possible, labs reviewed white cell count is 17,000, patient remains on Remdesivir, Decadron, Lovenox August 18 2020, patient seen eval examined during the rounds is still on 5 L high flow oxygen, denies any chest pain breathing difficulties present, denies any cough or sputum production labs chest x-ray reviewed This is a 59-year-old male who has history of diabetes hypertension hypertensive cardiovascular disease and not feeling well for the last 5-6 days with cough and increased shortness of breath started with a sore throat, patient admitted into the hospital was spiking fever up to 101, oxygen saturation 90%, patient already has been started on REM doesn't wear and Decadron, his initial admit x-ray cystoscopy right midlung field and left lower lid feeding infiltrate patient gradually got worse initially has been on room air oxygen requirement keep on going up to 3 L and subsequently on 5 L high flow oxygen with that oxygen saturation is 93%, critical care time spent 35 minutes Objective - Vital Signs Vital signs: Vital Signs Temp 97.9 F 09/11/20 08:00 Pulse 0 L 09/11/20 14:20 Resp 0 L 09/11/20 14:20 BP 142/70 09/11/20 14:25 Pulse Ox 0 L 09/11/20 14:20 Intake & Output 09/10/20 09/11/20 09/11/20 18:59 06:59 18:59 Intake Total 1131 1076.787 472.496 Output Total 0 35 0 Balance -919 1041.787 472.496 Weight 123.8 kg 124.3 kg Intake: IV 299 276 161 Normal Saline PRessure 39 36 21 bag sodium chloride @ 10ml hr 260 240 140 Intake, IV Titration 300 302.787 101.496 Amount Morphine Sulfate (100 mg/ 1.496 2 ml) 100 mg In Sodium Chloride 0.9% 100 ml @ 1 MG/HR 1.02 mls/hr IV . Q24H [facility] Rx#:[id number] propofoL 1,000 mg In 300 302.787 100 Empty Bag 1 bag @ Titrate IV .Q0M FOR[facility], [facility]–1983 Rx#: [id number] Tube Feeding 442 408 180 Other 90 90 30 Output: Chest Tube Drainage 50 Chest Tube Right 0 Chest Tube Right Upper 0 Left Upper Anterior Chest 50 Urine 0 35 0 Hemodialysis 1999 Other: Voiding Method Indwelling Catheter Indwelling Catheter Indwelling Catheter ABP, PAP, CO, CI - Last Documented Arterial Blood Pressure 07/08 - Exam - Constitutional General appearance: Intubated medically paralyzed on full ventilator support - EENT Eyes: EOMI, PERRLA Ears: bilateral: normal - Neck Neck: normal ROM Carotids: bilateral: upstroke normal Thyroid: bilateral: normal size - Respiratory Respiratory: bilateral: diminished - Cardiovascular Rhythm: regular Heart sounds: normal: S1, S2 - Gastrointestinal General gastrointestinal: normal bowel sounds - Neurologic Neurologic: CNII-XII intact - Musculoskeletal Musculoskeletal: gait normal, generalized weakness, strength equal bilaterally - Psychiatric Psychiatric: Appears, now post medical paralysis - Labs CBC & Chem 7: 09/11/20 04:00 09/11/20 04:00 Labs: Abnormal Lab Results - Last 24 Hours (Table) 09/10/20 09/10/20 09/10/20 Range/Units 17:20 20:09 23:59 WBC (3.8-10.6) k/uL RBC (4.30-5.90) m/uL Hgb (13.0-17.5) gm/dL Hct (39.0-53.0) % RDW (11.5-15.5) % Neutrophils # (1.3-7.7) k/uL Lymphocytes # (1.0-4.8) k/uL ABG pH (7.35-7.45) ABG pCO2 (35-45) mmHg Sodium (137-145) mmol/L Carbon Dioxide (22-30) mmol/L BUN (9-20) mg/dL Creatinine (0.66-1.25) mg/dL Glucose (74-99) mg/dL POC Glucose (mg/dL) 230 H 194 H 174 H (75-99) mg/dL Calcium (8.4-10.2) mg/dL Alkaline Phosphatase (38-126) U/L Total Protein (6.3-8.2) g/dL Albumin (3.5-5.0) g/dL 09/11/20 09/11/20 09/11/20 Range/Units 04:00 04:00 05:32 WBC 11.7 H (3.8-10.6) k/uL RBC 2.42 L (4.30-5.90) m/uL Hgb 7.1 L (13.0-17.5) gm/dL Hct 21.0 L (39.0-53.0) % RDW 15.9 H (11.5-15.5) % Neutrophils # 10.3 H (1.3-7.7) k/uL Lymphocytes # 0.3 L (1.0-4.8) k/uL ABG pH (7.35-7.45) ABG pCO2 (35-45) mmHg Sodium 132 L (137-145) mmol/L Carbon Dioxide 20 L (22-30) mmol/L BUN 67 H (9-20) mg/dL Creatinine 5.67 H (0.66-1.25) mg/dL Glucose 143 H (74-99) mg/dL POC Glucose (mg/dL) 178 H (75-99) mg/dL Calcium 7.0 L (8.4-10.2) mg/dL Alkaline Phosphatase 197 H (38-126) U/L Total Protein 4.5 L (6.3-8.2) g/dL Albumin 2.0 L (3.5-5.0) g/dL 09/11/20 Range/Units 06:02 WBC (3.8-10.6) k/uL RBC (4.30-5.90) m/uL Hgb (13.0-17.5) gm/dL Hct (39.0-53.0) % RDW (11.5-15.5) % Neutrophils # (1.3-7.7) k/uL Lymphocytes # (1.0-4.8) k/uL ABG pH 7.26 L (7.35-7.45) ABG pCO2 46 H (35-45) mmHg Sodium (137-145) mmol/L Carbon Dioxide (22-30) mmol/L BUN (9-20) mg/dL Creatinine (0.66-1.25) mg/dL Glucose (74-99) mg/dL POC Glucose (mg/dL) (75-99) mg/dL Calcium (8.4-10.2) mg/dL Alkaline Phosphatase (38-126) U/L Total Protein (6.3-8.2) g/dL Albumin (3.5-5.0) g/dL Assessment and Plan Assessment: Multiorgan failure including renal respiratory hematopoietic and cardiovascular Pseudomonas pneumonia Acute renal failure due to acute tubular necrosis related to Covid 19 pneumonia Mediastinal and bilateral pneumothorax Acute hypoxic and hypercapnic respiratory failure Status post respiratory arrest patient intubated on full ventilator support lung protective strategy MSSA pneumonia Bilateral DVT Free air in the abdomen due to mediastinal emphysema and pneumothorax Acute hypoxic respiratory failure Covid 19 pneumonia and ARDS related to that Type 2 diabetes mellitus Hypertension hypertensive cardiovascular disease Dehydration hypovolemia and hyponatremia Depression Overall prognosis is very poor with poor likelihood of recovery Plan: As per family wishes we will initiate comfort care measures will initiate as per protocol Time with Patient: Greater than 30
--- NOTE | 2020-09-13 12:22 | P.DS ---
Providers Date of admission: 08/14/20 18:30 Expected date of discharge: 09/11/20 Attending physician: Bryan Wood Consults: 08/15/20 14:18 Consult Physician Routine Consulting Provider: Sarah De Guzman Consult Reason/Comments: COVID 19 Do you want consulting provider notified?: Yes 08/17/20 11:27 Consult Physician Routine Consulting Provider: Jean-Pierre López Consult Reason/Comments: Covid, Resp Failure Do you want consulting provider notified?: Yes 08/22/20 08:50 Consult Physician Stat Consulting Provider: Cayden Ontiveros Consult Reason/Comments: Pneumothorax Do you want consulting provider notified?: Yes 08/28/20 17:04 Consult Physician Stat Consulting Provider: Toma Batista Consult Reason/Comments: acute renal failure, elevated potassium Do you want consulting provider notified?: Yes 08/31/20 13:29 Consult Physician Urgent Consulting Provider: Hari Triana Consult Reason/Comments: temporary hemodialysis catheter Do you want consulting provider notified?: Yes 09/01/20 05:11 Consult Physician Routine Consulting Provider: Mayank Wagner Consult Reason/Comments: Free air in the abdomen Do you want consulting provider notified?: Yes 09/04/20 14:17 Consult Physician Routine Consulting Provider: Barry Kumar Consult Reason/Comments: bleeding Do you want consulting provider notified?: Yes Primary care physician: Kiley Adams [facility] Course: Covid 19 infection/pneumonia 53-year-old male is admitted for Covid19 pneumonitis, sepsis. Patient went into hypoxemia last night ended up on 3 L of oxygen.overall feeling little bit better. 08/17/2020 Patient's is pretty status is worse and patient is not doing well in spite of high flow nasal cannula oxygen along with 100% many mask. Patient is being started on Remdesivir. Patient is still complaining of shortness of breath Constitutional: Denied any fatigue denied any fever. Cardio vascular: denied any chest pain, palpitations Gastrointestinal denied any nausea vomiting Pulmonary: As mentioned above Neurologic denied any new focal deficits All inpatient medications were reviewed and appropriate changes in these medications as dictated in the interval history and assessment and plan. 08/18/2020 Patient is seen and evaluated in follow-up and continues to be maintained on high flow oxygen via nasal cannula. Infectious disease is following. Patient continues to have shortness of breath especially with exertion. Discussed with the patient about increasing activity and getting up to the commode and chair. Patient states he feels slightly better today although continues to be extremely dyspneic. Review of systems: Constitutional: No reports of fatigue, fever, or chills Cardiovascular: No reports of chest pain or palpitations Respiratory: Reports shortness of breath with occasional cough GI: No reports of nausea, vomiting, or diarrhea : No reports of dysuria or retention Neurovascular: No reports of weakness or numbness All medications have been reviewed 08/19/2020 Patient is seen and evaluated in follow-up with no real improvement of respiratory status. Patient continues to sat in the low 80s and drops quickly without oxygen. He she is currently maintained on 15 L high flow oxygen along with a nonrebreather over that and was able to obtain 90% oxygen saturation. Patient is currently sitting up at the bedside asking when he can go home. Discussed with the patient at length about respiratory status and his inability to come off oxygen at this time. White blood count elevated at 17.9 from yesterday. BMP within normal limits although blood glucose levels continue to be elevated. Patient is maintained on sliding scale along with long-acting and oral antidiabetic medications. Will continue to monitor as the dexamethasone may be a component of elevated glucose levels. Discussed with the patient about incentive spirometer and instructed to use at least 10 times every hour while awake. Patient currently denies any chest pain or palpitations. Patient is afebrile. No reports of nausea or vomiting patient states he does not have much of an appetite although is tolerating diet. 08/20/2020 Patient is seen in follow-up and continues to be on a nonrebreather and 15 L high flow oxygen and was found to be extremely anxious and hypoxic with saturations in the 70s earlier this morning Repeat chest x-ray done today shows right side pneumothorax along with pneumo mediastinum, subcutaneous emphysema. Pulmonary Dr. López is following and will be placing a chest tube this afternoon. Lovenox dose will be adjusted once chest tube is placed. White blood count elevated at 20.7. D-dimer was found to be 13.05. Review of systems: Constitutional: Anxious, no reports of fever, or chills Cardiovascular: No reports of chest pain or palpitations Respiratory: reports worsening shortness of breath and difficulty breathing GI: No reports of nausea, vomiting, or diarrhea : No reports of dysuria or retention Neurovascular: No reports of weakness or numbness All medications have been reviewed 08/21/2020 Patient is seen and evaluated and follow-up currently remains in the ICU as patient underwent right chest tube placement with Dr. López yesterday due to right pneumothorax with pneumomediastinum and subcutaneous emphysema. Patient is currently sitting up in the chair and on a nonrebreather and high flow oxygen at flow rate of 60% with an FiO2 of 85%. Patient is currently at 89% oxygen saturation. Patient is also receiving a unit of fresh frozen plasma and is maintained on Lovenox. Blood sugars continue to be elevated and will continue to monitor with long-acting along with sliding scale. White Blood count 20.2. Chest x-ray this morning shows a stable right pneumothorax with right-sided chest tube noted and stable subcutaneous emphysema. Patient instructed to continue with incentive spirometer and semi-prone position with the right side up. Patient is somewhat anxious and agitated with remaining hospitalized. No reports of chest pain or palpitations. Denies any nausea or vomiting and is tolerating diet. Patient is currently afebrile. 08/22/2020 Patient has 2 chest tubes on the right side. Patient remains on airvo, there was a persistent leak in the previous chest tube. 08/23/2020 Patient the has bilateral pneumothorax right side has 2 chest tubes attached to wall suction and left-sided pneumothorax is 10-15% which is being monitored, cardiothoracic surgery evaluated the patient. Patient is presently on Bipap. Review of systems: Unable to obtain due to his clinical condition did All inpatient medications were reviewed and appropriate changes in these medications as dictated in the interval history and assessment and plan. 08/24/2020 Patient currently remains on a BiPAP and has 2 right-sided chest tubes and awaiting for possible pigtail once more stabilized. Patient is currently unable to tolerate travel to CT for interventional radiology to place the catheter. Chest x-ray today shows a moderate size recurrence of the right pneumothorax along with a small left apical pneumo that appears to be stable along with diffuse patchy infiltrates within bilateral lung ulloa. Pulmonary following closely. Discussed with pulmonary about the possibility of a transfer to a tertiary care center if patient's clinical status continues to deteriorate and unable to obtain the left side pigtail catheter. Remains in the ICU with close monitoring. Patient continues on IV antibiotics in the form of cefepime and vancomycin along with zinc, Lovenox, and dexamethasone. Review of systems: Constitutional: Reports fatigue, anxious, no reports of fever, or chills Cardiovascular: No reports of chest pain or palpitations Respiratory: Reports continued shortness of breath and cough GI: No reports of nausea, vomiting, or diarrhea : No reports of dysuria or retention Neurovascular: Reports weakness, no reports of numbness All medications have been reviewed 08/25/2020 Patient is seen and evaluated in follow-up and continues to be closely monitored in the ICU. Patient had a brief period Of respiratory arrest with attempts to pull out chest tubes after removing the BiPAP and was ultimately intubated. Patient was placed on sedation and appears much more calm at this time. Patient currently awaiting to receive a left side chest tube for the small pneumothorax with pulmonary. Patient continues to have 2 right-sided chest tubes at this time. White blood count elevated Review of systems: Unable to assess as patient is currently intubated and sedated. 08/26/20 Patient seen in follow up current remains in the ICU being closely monitored. Repeat chest xray today shows continued diffuse bilateral air space infiltrates with no pneumothoraces visible. Patient continues to have 3 chest tubes and intubated. Prognosis is poor. Code status discussed with the Bette Flores today and she would like him comfortable and made a no code. Consult placed to case management for hospice consult as she would like information about hospice and comfort measures. 08/27/2020 Patient is currently on back on ventilator. Sedated and paralyzed. Patient does have chest tubes in place. Chest x-ray showed stable portable chest. Bilateral chest tubes are redemonstrated. Bilateral less than 10% pneumothorax seen bilaterally. Laboratory data showed WBC 28.6, hemoglobin 13.0, platelets 157 Lymphocyte count 0.2 ABG showed pH of 7.19, PCO2 61 and PO2 6390% FiO2 Sodium 136, potassium 5.7 and chloride 108, BUN 64 and creatinine 3.17 Significantly elevated inflammatory markers. Patient is being continued on antibiotics in the form of cefepime and vancomycin. Currently on dexamethasone and completed remdesivir course. Continued on insulin dosing. 09/05/2020 Patient is currently in the MICU sedated and intubated. Patient was having bleeding through the endotracheal tube and OG tube. Anticoagulation is on hold at this time. Patient is currently 80% FiO2 and assist control. Chest x-ray showed no significant pneumothorax seen. Minimal subcutaneous emphysema and mediastinal emphysema leaving the left chest tube. Right chest tube without leaking air. Patient is tolerating tube feeding. Currently on antibiotics in the form of IV cefepime for MSSA pneumonia. Patient underwent hemodialysis today. Laboratory data showed WBC 20.7, hemoglobin 9.0 and sodium 133, BUN 25 and creatinine slight improvement with 5.99 Ferritin level is 1185 LDH 1172 and CRP 46.7 albumin 2.0 09/06/2020 Patient remained medical leader. Currently on FiO2 60%. Intubated and sedated. Patient underwent hemodialysis yesterday with 2.5 L ultrafiltration. Tolerating tube feeding. Continued on Levophed. Anticoagulation is on hold due to bleeding from the ET tube and Hallman catheter. Hematology has seen the patient and bleeding dialysis felt to be mostly due to enhanced anticoagulant effect of Lovenox and also platelet dysfunction due to renal failure on hemodialysis. Antifactor 10-year has been ordered and is currently pending.. Chest x-ray showed diffuse interstitial infiltrates remain. Airspace disease in the right lower lobe show some improvement. Bilateral chest tubes. Slight improvement in the patient's subcutaneous emphysema as well. Laboratory data showed WBC 20.1 hemoglobin 8.6 Sodium 134, potassium 4.5, BUN 70 and creatinine 4.93 and inflammatory markers are elevated. Patient is being continued on antibiotics in the form of cefepime and Flagyl. Sputum cultures grew Pseudomonas and Kristen albicans. Repeat blood cultures have been negative so far. 09/07/2020 Patient is undergoing hemodialysis today. Patient agrees to have right-sided to 2 chest tubes and left-sided 1 chest tube. Patient remains on propofol drip and Nimbex. Patient the is on insulin drip for Levothroid drip sputum cultures are positive for MSSA and pseudomonas, Kristen albicans. Infectious disease is following the patient as well. Patient is presently on cefepime and metro nidazole. 09/08/2020 Patient can use to have some bleeding in the oral cavity. Patient's anticoagulation was discontinued and patient was on Lovenox and patient the head renal dysfunction because of which patient ended up bleeding quite a bit. Patient remains on same antibiotics all 3 chest tubes remain in place. Patient does have elevated blood sugars patient is receiving Nepro via via NG tube. Patient is also on systemic steroids increasing his blood sugars. Patient will be started on Levemir will try to wean him off IV insulin. Patient will also be continued on sliding scale. While titrating his insulin patient blood sugars are expected to stay high. is probably more appropriate for placement to select specialty, if not comfort care. Patient didn't undergo hemodialysis t rashel yet. 09/09/2020 Patient is undergoing dialysis today. Patient respiratory status bleed did improve and patient is on FiO2 50% on minimal pressor support. Patient still has 3 chest tubes. Patient probably will need a tracheostomy and PEG tube placement and a transfer to although hemoglobin remained stable for last couple days because of which hematology evaluated the patient the recommending to resume on anti-correlation as soon as possible and they believe bleeding is secondary to platelet dysfunction for which they're recommending DDAVP patient is definitely high risk for PE/DVT. My plan is to bed and give DDAVP today I am hoping that his bleeding diathesis will improve and will start him on heparin at that time. We'll plan on starting him on IV heparin if her clinical bleeding is bit better. Patient's hemoglobin also remained stable for last couple days. 09/10/2020 . Patient remains on the same and later to support and the director skills discussed the overall goals of care with his who will be available tomorrow to visit him in the hospital until after that patient most probably will be initiated on hospice. Patient is off Levophed drip. Can use to be on ventila tor support with 50% FiO2 and rest of the vent settings please refer to handbag operator dictation 09/11/20; patient Patient Condition at Discharge: Stable Plan - Discharge Summary Discharge Rx Participant: No New Discharge Prescriptions: No Action Insulin Aspart [NovoLOG] See Protocol SQ TID-W/MEALS Acetaminophen Tab [Tylenol] 1,000 mg PO Q4-6H PRN PRN Reason: Fever And/ Or Pain metFORMIN HCL 1,000 mg PO BID-W/MEALS Lisinopril-Hctz 10-12.5 mg [Zestoretic 10-12.5] 1 tab PO DAILY Aspirin EC [Ecotrin Low Dose] 81 mg PO HS Discharge Medication List Acetaminophen Tab [Tylenol] 1,000 mg PO Q4-6H PRN 08/14/20 [History] Aspirin EC [Ecotrin Low Dose] 81 mg PO HS 08/14/20 [History] Insulin Aspart [NovoLOG] See Protocol SQ TID-W/MEALS 08/14/20 [History] Lisinopril-Hctz 10-12.5 mg [Zestoretic 10-12.5] 1 tab PO DAILY 08/14/20 [History] metFORMIN HCL 1,000 mg PO BID-W/MEALS 08/14/20 [History] Follow up Appointment(s)/Referral(s): Jean-Pierre López MD [STAFF PHYSICIAN] - 1 Week Kiley Adams MD [Primary Care Provider] - 1-2 days Discharge Disposition: - Preliminary Cause of Preliminary Cause of : Respiratory failure and multi organ failure
--- NOTE | 2020-09-15 12:37 | CDI ---
Documentation Clarification Form Date: 09/15/2020 12:01:39 PM From: Danette Gama RN, CCDS Admit Date: 08/14/2020 06:30:00 PM Patient Name: Kelvin Doyle Visit Number: [id number] Discharge Date: 09/11/2020 05:13:00 PM ATTENTION: The Clinical Documentation Specialists (CDI) and [facility] Coding Staff appreciate your assistance in clarifying documentation. Please respond to the clarification below the line at the bottom and electronically sign. The CDI & [facility] Coding staff will review the response and follow-up if needed. Please note: Queries are made part of the Legal Health Record. If you have any questions, please contact the author of this message via ITS. Dr. Jean-Pierre López Air leak is documented in the Pulmonary progress notes 08/21-09/11 and requires clarification. Patients Admitting Diagnosis: Covid 19 pneumonia Post-Operative Diagnosis: Right and Left Pneumothorax Procedure performed: 08/20 Right tube Thoracostomy 08/22 Right-sided 28 cm tube thoracostomy and chest tube placement 08/25 Left chest tube placement History/Risk Factors: Covid 19 Pneumonia with Acute on Chronic hypoxic respiratory failure, DM2, HTN Clinical Indicators: 08/21 Pulmonary progress Note: "Significant large right-sided pneumothorax status post right chest tube air leak is still present." 08/23 Pulmonary progress note: Right spontaneous pneumothorax in spite of right- sided double chest tube persistent air leak and pneumothorax is present Plan: Chest tube to 20 cm water suction is still have significant air leak from both chest tube " Treatment: Chest tubes to 20 cm of suction with daily CXR In order to accurately reflect this patients severity of illness, please clarify the air leak s/p CT placement: -is an expected outcome of the surgical procedure (Last Revision: November 2019) MTDD
== END 2020-09-11 17:13 | disposition expired | DRG 870 ==
LOC: EC 14:26 → 6NMEDSUR 18:30 → 4SSUR 20:49 → 2SICU 08-20 19:39
PROVIDERS: ADMIT Hospitalist; ATTEND Hospitalist
PROC: XW033E5 Introduction of Remdesivir Anti-infective into Peripheral Vein, Percutaneous Approach, New Technology Group 5 (ICD-10-PCS; 2020-08-20)
PROC: XW13325 Transfusion of Convalescent Plasma (Nonautologous) into Peripheral Vein, Percutaneous Approach, New Technology Group 5 (ICD-10-PCS; 2020-08-20)
PROC: 0W9930Z Drainage of Right Pleural Cavity with Drainage Device, Percutaneous Approach (ICD-10-PCS; 2020-08-22)
PROC: 5A1955Z Respiratory Ventilation, Greater than 96 Consecutive Hours (ICD-10-PCS; principal; 2020-08-24)
PROC: 5A09457 Assistance with Respiratory Ventilation, 24-96 Consecutive Hours, Continuous Positive Airway Pressure (ICD-10-PCS; principal; 2020-08-24)
PROC: 0BH17EZ Insertion of Endotracheal Airway into Trachea, Via Natural or Artificial Opening (ICD-10-PCS; principal; 2020-08-24)
PROC: 0W9B30Z Drainage of Left Pleural Cavity with Drainage Device, Percutaneous Approach (ICD-10-PCS; 2020-08-25)
PROC: 5A1D70Z Performance of Urinary Filtration, Intermittent, Less than 6 Hours Per Day (ICD-10-PCS; 2020-08-31)
PROC: 06HM33Z Insertion of Infusion Device into Right Femoral Vein, Percutaneous Approach (ICD-10-PCS; 2020-08-31)
PROC: 3E033XZ Introduction of Vasopressor into Peripheral Vein, Percutaneous Approach (ICD-10-PCS; 2020-09-02)
PROC: 02HV33Z Insertion of Infusion Device into Superior Vena Cava, Percutaneous Approach (ICD-10-PCS; 2020-09-03)
DX: A41.89 Other specified sepsis (principal); U07.1 COVID-19; J12.89 Other viral pneumonia; J93.0 Spontaneous tension pneumothorax; J15.211 Pneumonia due to Methicillin susceptible Staphylococcus aureus; N17.0 Acute kidney failure with tubular necrosis; R65.21 Severe sepsis with septic shock; J80 Acute respiratory distress syndrome; J15.1 Pneumonia due to Pseudomonas; J98.11 Atelectasis; E87.1 Hypo-osmolality and hyponatremia; J93.82 Other air leak; E87.4 Mixed disorder of acid-base balance; I82.433 Acute embolism and thrombosis of popliteal vein, bilateral; J90 Pleural effusion, not elsewhere classified; D68.32 Hemorrhagic disorder due to extrinsic circulating anticoagulants; E83.39 Other disorders of phosphorus metabolism; Z51.5 Encounter for palliative care; Z66 Do not resuscitate; Z79.4 Long term (current) use of insulin; T46.4X5A Adverse effect of angiotensin-converting-enzyme inhibitors, initial encounter; E87.70 Fluid overload, unspecified; R19.7 Diarrhea, unspecified; D69.1 Qualitative platelet defects; T45.515A Adverse effect of anticoagulants, initial encounter; D64.9 Anemia, unspecified; T36.8X5A Adverse effect of other systemic antibiotics, initial encounter; I95.3 Hypotension of hemodialysis; R00.0 Tachycardia, unspecified; E11.9 Type 2 diabetes mellitus without complications; E87.5 Hyperkalemia; E86.1 Hypovolemia; E86.0 Dehydration; F32.9 Major depressive disorder, single episode, unspecified; J98.2 Interstitial emphysema; F41.9 Anxiety disorder, unspecified; I25.10 Atherosclerotic heart disease of native coronary artery without angina pectoris; I11.9 Hypertensive heart disease without heart failure; Z90.49 Acquired absence of other specified parts of digestive tract; Z86.718 Personal history of other venous thrombosis and embolism; Z79.82 Long term (current) use of aspirin
CPT/HCPCS: 36415; 36573; 36600; 71045; 71250; 74176; 80048; 80053; 80202; 82550; 82553; 82565; 82728; 82805; 83010; 83036; 83520; 83605; 83615; 83735; 84100; 84132; 84145; 85025; 85027; 85049; 85379; 85384; 85520; 85610; 85730; 86140; 86706; 86850; 86900; 86901; 87040; 87070; 87077; 87086; 87186; 87205; 87340; 87502; 90935; 93005; 93308; 93970; 94002; 94003; 94640; 94660; 94760; 96361; 96365; 96375; 99285